=== PATIENT | female | born 1975 | race Asian ===

== ENCOUNTER 2016-03-16 10:29 | Emergency (ER) | payer BC, MEDICARE ==
[~2016-03-16 10:29] MED LIST: ASPI325T28 PO; ATOR1TAB19 PO; BACT800T5 PO; BACTROBAN; CALC1CAP31 PO; CIPR500T89 PO; CLIN300C2 PO; COZA100T2 PO; COZA50TA PO; ESCI10TA2 PO; FERR325T3 PO; HUMULIN 70/30 SC; HYDR12.55 PO; INSUH10VL SC; INSUNSD SC; KEFL750C5 PO; LISI2.5T OR; LOSA25TA8 PO; METO10TA2 OR; NORV5TAB PO; OMEP20TA7 OR; SODI200S PO; TRI-TAB PO; TYLE325T5 PO; TYLE650T30 PO; VITA-130 PO
[2016-03-16] MEDS ORDERED: CLINDAMYCIN 600 MG/50 ML PREMIX BAG As Ordered ONE (11:47)
[2016-03-16 12:08] LABS: BASO % 1.1 % (0.0-1.0); EOS # 0.5 K/mm3 (0.0-0.50); EOS % 11.4 % (0.0-3.0); LARGE UNSTAINED CELL # 0.1 K/mm3 (0.0-0.4); LARGE UNSTAINED CELL % 2.1 % (0.0-4.0); LYMPH % 22.7 % (24.0-44.0); MEAN CORPUSCULAR HEMOGLOBIN 35.6 pg (27.0-33.0); MEAN CORPUSCULAR HGB CONC 33.4 g/dl (32.0-36.5); MEAN CORPUSCULAR VOLUME 106.3 fl (80.0-96.0); MONO # 0.3 K/mm3 (0.0-0.8); MONO % 6.1 % (0.0-5.0); NEUTROPHILS # 2.4 K/mm3 (1.8-7.7); NEUTROPHILS % 56.7 % (36.0-66.0); PLATELET COUNT, AUTOMATED 126 k/mm3 (150-450); RED CELL DISTRIBUTION WIDTH 14.8 % (11.5-14.5); WHITE BLOOD COUNT 4.2 K/mm3 (4.0-10.0)
[2016-03-16 12:24] LABS: CALCIUM LEVEL 8.6 MG/DL (8.5-10.1); CREATININE FOR GFR 6.67 MG/DL (0.55-1.02); GLOMERULAR FILTRATION RATE 7.4 (>60); POTASSIUM SERUM 4.4 MEQ/L (3.5-5.1)
[2016-03-16 12:47] LABS: ERYTHROCYTE SEDIMENTATION RATE 32 mm/hr (0-20)
--- NOTE | 2016-03-16 13:07 | EDDOCDS ---
Nurse's Notes [facility] Name: Italia Nye Age: 40 yrs Sex: Female : 1975 Arrival Date: 03/16/2016 Time: 10:29 Bed I4 / M4 Private MD: Tyron Smith MD Diagnosis: Cellulitis of face-left Presentation: 03/16 10:49 Presenting complaint: Patient states: Dental pain and swelling to left side of face. dwg Symptoms since yesterday AM. Adult Sepsis Screening: The patient does not have new or worsening altered mentation. Patient's respiratory rate is less than 22. Systolic blood pressure is greater than 100. Patient has a qSOFA score of 0- Negative Sepsis Screen. Suicide/Homicide risk assessment- the patient denies having any suicidal and/or homicidal ideations and does not present with any other emotional, behavioral or mental health complaints. 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 Transition of care: patient was not received from another setting of care. 10:49 Acuity: DEE Level 4 dwg 10:49 Method Of Arrival: Walkin/Carried/Asstd dwg Triage Assessment: 10:58 General: Appears in no apparent distress, uncomfortable. Pain: Pain currently is 6 out dwg of 10 on a pain scale. HIV screening NA for this visit Offered previously. 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 losartan 100 mg oral tab 1 tab once daily (Last dose: 03/16/2016) 2. amlodipine 10 mg Oral tab 1 tab once daily (Last dose: 03/16/2016) 3. Lipitor 10 mg Oral tab 1 tab once daily (Last dose: 03/16/2016) 4. Renvela 800 mg oral tab 1 tab 3 times per day (Last dose: 03/16/2016) 5. Novolin N 15 units in AM, 10 units at PM Sub-Q (Last dose: 03/16/2016) 6. Novolog Sliding scale AC and HS Sub-Q (Last dose: 03/15/2016) 7. calcitriol oral Q Mon, Wed, Fri oral 8. Lexapro 10 mg Oral tab 1 tab once daily (Last dose: 03/16/2016) 9. aspirin 325 mg Oral TbEC 1 tab once daily (Last dose: 03/16/2016) 10. Vitamin D Oral 50,000 unit weekly (Last dose: 03/11/2016) 11. Renavite one tab daily - PMHx: Diabetes - IDDM: controlled; Hypertension; Hypercholesterolemia; Renal failure with hemodialysis; - PSHx: Tubal ligation; Left pinky toe amputation; Left upper arm fistula; - Social history: Smoking status: Patient states was never smoker of tobacco. No barriers to communication noted, The patient speaks fluent Cypriot. - Family history: Not pertinent. - : The pt / caregiver states he / she is not on anticoagulants. Home medication list is obtained from the patient. - Exposure Risk Screening:: None identified. Screenin:32 Infection Control. cmb 12:52 Screening information is obtained from the patient. Primary language is Cypriot. Fall jam1 risk: No risks identified. Assistance ADL's: requires no assistance with activities of daily living. Abuse/DV Screen: The patient / caregiver reports he/she is: not in a situation that causes fear, pain or injury. Nutritional screening: No deficits noted. Exposure Risk Screening: None identified. Advance Directives: Currently, there is no health care proxy. There is no active DNR order. There is no living will. There is no Power of Can Doffer. Advance directive information has not previously been placed in an [facility] medical record. Further advance directive information is declined. home support is adequate. Assessment: 11:53 Adult Sepsis Screening: The patient does not have new or worsening altered mentation. dsf Patient's respiratory rate is less than 22. Systolic blood pressure is greater than 100. Patient has a qSOFA score of 0- Negative Sepsis Screen. General: Appears in no apparent distress, Behavior is appropriate for age, cooperative. Pain: Location: left jaw Pain currently is 8 out of 10 on a pain scale. Quality of pain is described as aching, dull. Neurological: Level of Consciousness is awake, alert. Cardiovascular: Capillary refill < 3 seconds. Respiratory: Airway is patent Respiratory effort is even, unlabored, Respiratory pattern is regular, symmetrical. Derm: Skin is dry, Skin is pale, Skin temperature is warm small dark purple bruise noted to left jaw. 12:19 General: Appears in no apparent distress, Behavior is appropriate for age, cooperative. dsf Neurological: Level of Consciousness is awake, alert. Cardiovascular: Capillary refill < 3 seconds. Respiratory: Airway is patent Respiratory effort is even, unlabored, Respiratory pattern is regular, symmetrical. Derm: Skin is dry, Skin is pale, Skin temperature is warm. 13:01 General: Appears in no apparent distress, comfortable, Behavior is appropriate for age, dsf cooperative. Neurological: Level of Consciousness is awake, alert. Cardiovascular: Capillary refill < 3 seconds. Respiratory: Airway is patent Respiratory effort is even, unlabored, Respiratory pattern is regular, symmetrical. Derm: Skin is dry, Skin is pale, Skin temperature is warm. Vital Signs: 10:31 BP 164 / 82; Pulse 74; Resp 16; Temp 98.2(O); Pulse Ox 97% ; Weight 74.84 kg; Height 5 cmb ft. 4 in. (162.56 cm); Pain 6/10; 12:51 BP 169 / 80; Pulse 76; Resp 18; Temp 97.6; Pulse Ox 97% ; Pain 0/10; jam1 10:31 Body Mass Index 28.32 (74.84 kg, 162.56 cm) cmb Vitals: 10:31 Log In Time: March 16, 2016 at 10:29. cmb ED Course: 10:30 Patient visited by Sonal Brown. cmb 10:30 Patient moved to Waiting cmb 10:31 Tyron Smith is Private Physician. cmb 10:32 Patient moved to Pre RCE cmb 10:51 Triage Initiated dwg 10:59 Patient moved to Triage 3 dwg 11:17 [facility] dt4 11:17 Darryl Reed MD is Attending Physician. dt4 11:17 Patient visited by Margarita Marin PA-C. dt4 11:39 Patient moved to I4 / M4 mdr 11:53 CRP Sent. dsf 11:53 Sed Rate Sent. dsf 11:53 Basic Metabolic Profile Sent. dsf 11:53 CBC with Diff Sent. dsf 11:54 Inserted saline lock: 20 gauge in right hand The patient tolerated the procedure well. dsf 12:09 Patient name changed from Alesa\S\Tatyana\S\Rich\S\ to Alesa\S\C\S\Rich. EDMS 12:16 [facility] [place] Agreement was scanned into [employer] and attached to record. lg 12:20 Patient visited by Karen Bolaños RN. dsf 12:[address] dsf 12:35 Patient moved to I4 / M4 dsf 13:01 Discontinued lock intact, bleeding controlled, pressure dressing applied, No dsf redness/swelling at site. No procedures done that require assistance. 13:02 The patient / caregiver is instructed regarding the plan of care and ED course. Patient dsf has correct armband on for positive identification. Administered Medications: 11:55 Drug: Clindamycin 600 mg [clindamycin 600 mg/50 mL in 5 % dextrose intravenous jf3 piggyback] Route: IVPB; Infused Over: 30 mins; Site: right hand; 12:19 Follow up: IV Status: Completed infusion; IV Intake: 50ml dsf Intake: 12:19 IV: 50.00ml; Total: 50.00ml. dsf Order Results: Lab Order: CBC with Diff; SPEC'M 03/16/16 11:52 Test: WHITE BLOOD COUNT; Value: 4.2; Range: 4.0-10.0; Units: K/mm3; Status: F Test: RED BLOOD COUNT; Value: 2.76; Range: 4.00-5.40; Abnormal: Below low normal; Units: M/mm3; Status: F Test: HEMOGLOBIN; Value: 9.8; Range: 12.0-16.0; Abnormal: Below low normal; Units: g/dl; Status: F Test: HEMATOCRIT; Value: 29.4; Range: 36.0-47.0; Abnormal: Below low normal; Units: %; Status: F Test: MEAN CORPUSCULAR VOLUME; Value: 106.3; Range: 80.0-96.0; Abnormal: Above high normal; Units: fl; Status: F Test: MEAN CORPUSCULAR HEMOGLOBIN; Value: 35.6; Range: 27.0-33.0; Abnormal: Above high normal; Units: pg; Status: F Test: MEAN CORPUSCULAR HGB CONC; Value: 33.4; Range: 32.0-36.5; Units: g/dl; Status: F Test: RED CELL DISTRIBUTION WIDTH; Value: 14.8; Range: 11.5-14.5; Abnormal: Above high normal; Units: %; Status: F Test: PLATELET COUNT, AUTOMATED; Value: 126; Range: 150-450; Abnormal: Below low normal; Units: k/mm3; Status: F Test: NEUTROPHILS %; Value: 56.7; Range: 36.0-66.0; Units: %; Status: F Test: LYMPH %; Value: 22.7; Range: 24.0-44.0; Abnormal: Below low normal; Units: %; Status: F Test: MONO %; Value: 6.1; Range: 0.0-5.0; Abnormal: Above high normal; Units: %; Status: F Test: EOS %; Value: 11.4; Range: 0.0-3.0; Abnormal: Above high normal; Units: %; Status: F Test: BASO %; Value: 1.1; Range: 0.0-1.0; Abnormal: Above high normal; Units: %; Status: F Test: LARGE UNSTAINED CELL %; Value: 2.1; Range: 0.0-4.0; Units: %; Status: F Test: NEUTROPHILS #; Value: 2.4; Range: 1.8-7.7; Units: K/mm3; Status: F Test: LYMPH #; Value: 1.0; Range: 1.5-4.5; Abnormal: Below low normal; Units: K/mm3; Status: F Test: MONO #; Value: 0.3; Range: 0.0-0.8; Units: K/mm3; Status: F Test: EOS #; Value: 0.5; Range: 0.0-0.50; Units: K/mm3; Status: F Test: BASO #; Value: 0.0; Range: 0.0-0.2; Units: K/mm3; Status: F Test: LARGE UNSTAINED CELL #; Value: 0.1; Range: 0.0-0.4; Units: K/mm3; Status: F Lab Order: Basic Metabolic Profile; SPEC'M 03/16/16 11:52 Test: GLUCOSE, FASTING; Value: 267; Range: 70-105; Abnormal: Above high normal; Units: MG/DL; Status: F Test: BLOOD UREA NITROGEN; Value: 58; Range: 7-18; Abnormal: Above high normal; Units: MG/DL; Status: F Test: CREATININE FOR GFR; Value: 6.67; Range: 0.55-1.02; Abnormal: Above high normal; Units: MG/DL; Status: F Test: GLOMERULAR FILTRATION RATE; Value: 7.4; Range: >60; Abnormal: Below low normal; Status: F Test: SODIUM LEVEL; Value: 135; Range: 136-145; Abnormal: Below low normal; Units: MEQ/L; Status: F Test: POTASSIUM SERUM; Value: 4.4; Range: 3.5-5.1; Units: MEQ/L; Status: F Test: CHLORIDE LEVEL; Value: 95; Range: 98-107; Abnormal: Below low normal; Units: MEQ/L; Status: F Test: CARBON DIOXIDE LEVEL; Value: 27; Range: 21-32; Units: MEQ/L; Status: F Test: ANION GAP; Value: 13; Range: 8-16; Units: MEQ/L; Status: F Test: CALCIUM LEVEL; Value: 8.6; Range: 8.5-10.1; Units: MG/DL; Status: F Test Note: ; Units are mL/min/1.73 m2 Chronic Kidney Disease Staging per NKF: Stage I & II GFR >=60 Normal to Mildly Decreased Stage III GFR 30-59 Moderately Decreased Stage IV GFR 15-29 Severely Decreased Stage V GFR <15 Very Little GFR Left ESRD GFR <15 on LOAD OUT WORKER Lab Order: Sed Rate; SPEC'M 03/16/16 11:52 Test: ERYTHROCYTE SEDIMENTATION RATE; Value: 32; Range: 0-20; Abnormal: Above high normal; Units: mm/hr; Status: F Lab Order: CRP; SPEC'M 03/16/16 11:52 Test: C REACTIVE PROTEIN QUANTITATIV; Value: 0.41; Range: 0.00-0.30; Abnormal: Above high normal; Units: MG/DL; Status: F Outcome: 13:02 CT Study completed. Property sent home with patient. dsf 13:02 Discharge ordered by Provider. dt4 13:06 Discharge Assessment: Patient awake, alert and oriented x 3. No cognitive and/or dsf functional deficits noted. Patient verbalized understanding of disposition instructions. patient administered narcotics - no. The following High Risk Discharge criteria are identified: None. Discharged to home ambulatory, with significant other. Condition: stable. Discharge instructions given to patient, Instructed on discharge instructions, follow up and referral plans. medication usage, Demonstrated understanding of instructions, medications, Pt was receptive of discharge instructions/ teaching. Prescriptions given X 1. 13:06 Patient left the ED. dsf Signatures: Dispatcher [employer] EDMS Huber Geller, RN RN Mell Chavez, TECHNICIAN PREVENTATIVE MEDICINE TECHNICIAN PREVENTATIVE MEDICINE jam1 Natacha Benitez, Reg Reg lg Karen Bolaños,RN RN dsf Sonal Brown Diane, PA-C PA-C dt4 Diego Gibbs, TECHNICIAN PREVENTATIVE MEDICINE TECHNICIAN PREVENTATIVE MEDICINE mdr Parish Friedman,RN RN jf3 MTDD
--- NOTE | 2016-03-16 13:07 | EDDOCDS ---
Physician Documentation [facility] Name: Italia Nye Age: 40 yrs Sex: Female : 1975 Arrival Date: 03/16/2016 Time: 10:29 Bed I4 / M4 Private MD: Tyron Smith MD Disposition: 03/16/16 13:02 Discharged to Home/Self Care. Impression: Cellulitis of face - left. - Condition is Stable. - Discharge Instructions: Cellulitis. - Prescriptions for Clindamycin HCl 300 mg Oral Capsule - take 1 capsule by ORAL route every 6 hours; 40 capsule. - Medication Reconciliation, Local Pharmacy Hours form. - Follow up: Emergency Department; When: As needed; Reason: Worsening of conditions. Follow up: Private Physician; When: 2 - 3 days; Reason: Wound/Symptom Recheck, Recheck today's complaints, Continuance of care. - Problem is new. - Symptoms are unchanged. Historical: - Allergies: no known allergies; - Home Meds: 1. losartan 100 mg oral tab 1 tab once daily (Last dose: 03/16/2016) 2. amlodipine 10 mg Oral tab 1 tab once daily (Last dose: 03/16/2016) 3. Lipitor 10 mg Oral tab 1 tab once daily (Last dose: 03/16/2016) 4. Renvela 800 mg oral tab 1 tab 3 times per day (Last dose: 03/16/2016) 5. Novolin N 15 units in AM, 10 units at PM Sub-Q (Last dose: 03/16/2016) 6. Novolog Sliding scale AC and HS Sub-Q (Last dose: 03/15/2016) 7. calcitriol oral Q Mon, Wed, Fri oral 8. Lexapro 10 mg Oral tab 1 tab once daily (Last dose: 03/16/2016) 9. aspirin 325 mg Oral TbEC 1 tab once daily (Last dose: 03/16/2016) 10. Vitamin D Oral 50,000 unit weekly (Last dose: 03/11/2016) 11. Renavite one tab daily - PMHx: Diabetes - IDDM: controlled; Hypertension; Hypercholesterolemia; Renal failure with hemodialysis; - PSHx: Tubal ligation; Left pinky toe amputation; Left upper arm fistula; - Social history: Smoking status: Patient states was never smoker of tobacco. No barriers to communication noted, The patient speaks fluent Divehi. - Family history: Not pertinent. - : The pt / caregiver states he / she is not on anticoagulants. Home medication list is obtained from the patient. - Exposure Risk Screening:: None identified. 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 4 in. (162.56 cm); Pain 6/10; 12:51 BP 169 / 80; Pulse 76; Resp 18; Temp 97.6; Pulse Ox 97% ; Pain 0/10; jam1 10:31 Body Mass Index 28.32 (74.84 kg, 162.56 cm) cmb MDM: 11:36 IV Saline Lock ordered. dt4 11:36 Clindamycin 600 mg IVPB once over 30 mins; dilute in 50mL of NS or D5W ordered. dt4 11:37 CBC with Diff Ordered. EDMS 11:37 Basic Metabolic Profile Ordered. EDMS 11:37 Sed Rate Ordered. EDMS 11:38 CRP Ordered. EDMS 11:47 Financial registration complete. lg 12:16 [facility] [place] Payment Agreement was scanned into [employer] and attached to record. lg 12:28 CT Maxilofacial W/out Contrast Ordered. EDMS Administered Medications: 11:55 Drug: Clindamycin 600 mg [clindamycin 600 mg/50 mL in 5 % dextrose intravenous jf3 piggyback] Route: IVPB; Infused Over: 30 mins; Site: right hand; 12:19 Follow up: IV Status: Completed infusion; IV Intake: 50ml dsf Signatures: Dispatcher [employer] EDMS Huber Geller RN RN dwg Natacha Benitez, Rashawn Reg lg Karen BolañosRN RN dsf Margarita Marin PA-C PA-C dt4 Parish Friedman RN jf3 The chart was reviewed and I authenticate all verbal orders and agree with the evaluation and treatment provided.Corrections: (The following items were deleted from the chart) 12:31 11:38 CT Maxillofacial with contrast+CT ordered. EDMS EDMS Attachments: 12:16 [facility] [place] Payment Agreement lg MTDD
--- NOTE | 2016-03-16 13:11 | REP ---
MAXILLOFACIAL CT WITHOUT CONTRAST: HISTORY: Left facial swelling. The sinuses are clear. The osteomeatal units are patent. The middle and inferior nasal turbinates are partially paradoxical. There is minimal deviation of the nasal septum to the left. A spur is present arising from the left side of the nasal septum. The spur abuts the left inferior nasal turbinate. The cribriform plate, medial bingham of the orbits, and optic canals are intact. The carotid canals form a segment of the posterolateral bingham of the sphenoid sinus. Increased density is present in the subcutaneous tissue overlying the left maxilla and body of the left mandible. This represents cellulitis. There is minimal thickening of the left platysma muscle consistent with edema. Calcifications are present in the tonsils. This is secondary to previous inflammatory disease. The naso- and hypopharynx, larynx, and subglottic trachea are normal in appearance. The salivary and thyroid glands are normal. Small lymph nodes less than 1 cm in size are present in the internal jugular chains, posterior triangles, and submandibular areas. A 9 mm lymph node is present along the buccal surface of the left maxilla. IMPRESSION: There is increased density in the soft tissue overlying the left maxilla and body of the left mandible consistent with cellulitis. Signed by Naldo Vasquez MD 03/16/2016 01:23 P
--- NOTE | 2016-03-18 14:07 | EDDOCDS ---
Physician Documentation [facility] Name: Italia Nye Age: 40 yrs Sex: Female : 1975 Arrival Date: 03/16/2016 Time: 10:29 Bed I4 / M4 Private MD: Tyron Smith MD Disposition: 03/16/16 13:02 Discharged to Home/Self Care. Impression: Cellulitis of face - left. - Condition is Stable. - Discharge Instructions: Cellulitis. - Prescriptions for Clindamycin HCl 300 mg Oral Capsule - take 1 capsule by ORAL route every 6 hours; 40 capsule. - Medication Reconciliation, Local Pharmacy Hours form. - Follow up: Emergency Department; When: As needed; Reason: Worsening of conditions. Follow up: Private Physician; When: 2 - 3 days; Reason: Wound/Symptom Recheck, Recheck today's complaints, Continuance of care. - Problem is new. - Symptoms are unchanged. Historical: - Allergies: no known allergies; - Home Meds: 1. losartan 100 mg oral tab 1 tab once daily (Last dose: 03/16/2016) 2. amlodipine 10 mg Oral tab 1 tab once daily (Last dose: 03/16/2016) 3. Lipitor 10 mg Oral tab 1 tab once daily (Last dose: 03/16/2016) 4. Renvela 800 mg oral tab 1 tab 3 times per day (Last dose: 03/16/2016) 5. Novolin N 15 units in AM, 10 units at PM Sub-Q (Last dose: 03/16/2016) 6. Novolog Sliding scale AC and HS Sub-Q (Last dose: 03/15/2016) 7. calcitriol oral Q Mon, Wed, Fri oral 8. Lexapro 10 mg Oral tab 1 tab once daily (Last dose: 03/16/2016) 9. aspirin 325 mg Oral TbEC 1 tab once daily (Last dose: 03/16/2016) 10. Vitamin D Oral 50,000 unit weekly (Last dose: 03/11/2016) 11. Renavite one tab daily - PMHx: Diabetes - IDDM: controlled; Hypertension; Hypercholesterolemia; Renal failure with hemodialysis; - PSHx: Tubal ligation; Left pinky toe amputation; Left upper arm fistula; - Social history: Smoking status: Patient states was never smoker of tobacco. No barriers to communication noted, The patient speaks fluent Kazakh. - Family history: Not pertinent. - : The pt / caregiver states he / she is not on anticoagulants. Home medication list is obtained from the patient. - Exposure Risk Screening:: None identified. 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 4 in. (162.56 cm); Pain 6/10; 12:51 BP 169 / 80; Pulse 76; Resp 18; Temp 97.6; Pulse Ox 97% ; Pain 0/10; jam1 10:31 Body Mass Index 28.32 (74.84 kg, 162.56 cm) cmb MDM: 11:36 IV Saline Lock ordered. dt4 11:36 Clindamycin 600 mg IVPB once over 30 mins; dilute in 50mL of NS or D5W ordered. dt4 11:37 CBC with Diff Ordered. EDMS 11:37 Basic Metabolic Profile Ordered. EDMS 11:37 Sed Rate Ordered. EDMS 11:38 CRP Ordered. EDMS 11:47 Financial registration complete. lg 12:16 [facility] Payment Agreement was scanned into [employer] and attached to record. lg 12:28 CT Maxilofacial W/out Contrast Ordered. EDMS 03/17 11:34 T-Sheet-- Draft Copy was scanned into [employer] and attached to record. gb 11:34 Radiology Report was scanned into [employer] and attached to record. gb Administered Medications: 03/16 11:55 Drug: Clindamycin 600 mg [clindamycin 600 mg/50 mL in 5 % dextrose intravenous jf3 piggyback] Route: IVPB; Infused Over: 30 mins; Site: right hand; 12:19 Follow up: IV Status: Completed infusion; IV Intake: 50ml dsf Signatures: Dispatcher [employer] EDMS Huber Geller, RN RN dwg Rosa Castro, Reg Reg gb Natacha Benitez, Reg Reg lg Karen Bolaños RN RN dsf Margarita Marin PA-C PAJessicaC dt4 Parish Friedman RN jf3 The chart was reviewed and I authenticate all verbal orders and agree with the evaluation and treatment provided.Corrections: (The following items were deleted from the chart) 12:31 11:38 CT Maxillofacial with contrast+CT ordered. EDMS EDMS Attachments: 12:16 [facility] Payment Agreement lg 03/17 11:34 T-Sheet-- Draft Copy gb Chart Complete MTDD
--- NOTE | 2016-03-18 14:07 | EDDOCDS ---
Physician Documentation [facility] Name: Italia Nye Age: 40 yrs Sex: Female : 1975 Arrival Date: 03/16/2016 Time: 10:29 Bed I4 / M4 Private MD: Tyron Smith MD Disposition: 03/16/16 13:02 Discharged to Home/Self Care. Impression: Cellulitis of face - left. - Condition is Stable. - Discharge Instructions: Cellulitis. - Prescriptions for Clindamycin HCl 300 mg Oral Capsule - take 1 capsule by ORAL route every 6 hours; 40 capsule. - Medication Reconciliation, Local Pharmacy Hours form. - Follow up: Emergency Department; When: As needed; Reason: Worsening of conditions. Follow up: Private Physician; When: 2 - 3 days; Reason: Wound/Symptom Recheck, Recheck today's complaints, Continuance of care. - Problem is new. - Symptoms are unchanged. Historical: - Allergies: no known allergies; - Home Meds: 1. losartan 100 mg oral tab 1 tab once daily (Last dose: 03/16/2016) 2. amlodipine 10 mg Oral tab 1 tab once daily (Last dose: 03/16/2016) 3. Lipitor 10 mg Oral tab 1 tab once daily (Last dose: 03/16/2016) 4. Renvela 800 mg oral tab 1 tab 3 times per day (Last dose: 03/16/2016) 5. Novolin N 15 units in AM, 10 units at PM Sub-Q (Last dose: 03/16/2016) 6. Novolog Sliding scale AC and HS Sub-Q (Last dose: 03/15/2016) 7. calcitriol oral Q Mon, Wed, Fri oral 8. Lexapro 10 mg Oral tab 1 tab once daily (Last dose: 03/16/2016) 9. aspirin 325 mg Oral TbEC 1 tab once daily (Last dose: 03/16/2016) 10. Vitamin D Oral 50,000 unit weekly (Last dose: 03/11/2016) 11. Renavite one tab daily - PMHx: Diabetes - IDDM: controlled; Hypertension; Hypercholesterolemia; Renal failure with hemodialysis; - PSHx: Tubal ligation; Left pinky toe amputation; Left upper arm fistula; - Social history: Smoking status: Patient states was never smoker of tobacco. No barriers to communication noted, The patient speaks fluent Yakut. - Family history: Not pertinent. - : The pt / caregiver states he / she is not on anticoagulants. Home medication list is obtained from the patient. - Exposure Risk Screening:: None identified. 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 4 in. (162.56 cm); Pain 6/10; 12:51 BP 169 / 80; Pulse 76; Resp 18; Temp 97.6; Pulse Ox 97% ; Pain 0/10; jam1 10:31 Body Mass Index 28.32 (74.84 kg, 162.56 cm) cmb MDM: 11:36 IV Saline Lock ordered. dt4 11:36 Clindamycin 600 mg IVPB once over 30 mins; dilute in 50mL of NS or D5W ordered. dt4 11:37 CBC with Diff Ordered. EDMS 11:37 Basic Metabolic Profile Ordered. EDMS 11:37 Sed Rate Ordered. EDMS 11:38 CRP Ordered. EDMS 11:47 Financial registration complete. lg 12:16 [facility] [place] Payment Agreement was scanned into Ongo and attached to record. lg 12:28 CT Maxilofacial W/out Contrast Ordered. EDMS 03/17 11:34 T-Sheet-- Draft Copy was scanned into Ongo and attached to record. gb 11:34 Radiology Report was scanned into Ongo and attached to record. gb Administered Medications: 03/16 11:55 Drug: Clindamycin 600 mg [clindamycin 600 mg/50 mL in 5 % dextrose intravenous jf3 piggyback] Route: IVPB; Infused Over: 30 mins; Site: right hand; 12:19 Follow up: IV Status: Completed infusion; IV Intake: 50ml dsf Signatures: Dispatcher Med[employer] EDMS Huber Geller, RN RN dwg Rosa Castro, Reg Reg gb Natacha Benitez, Reg Reg lg Karen Bolaños RN RN dsf Margarita Marin PA-C PAJessicaC dt4 Parish Friedman RN jf3 The chart was reviewed and I authenticate all verbal orders and agree with the evaluation and treatment provided.Corrections: (The following items were deleted from the chart) 12:31 11:38 CT Maxillofacial with contrast+CT ordered. EDMS EDMS Attachments: 12:16 [facility] Payment Agreement lg 03/17 11:34 T-Sheet-- Draft Copy gb Chart Complete MTDD
--- NOTE | 2016-03-18 14:07 | EDDOCDS ---
Nurse's Notes [facility] Name: Italia Nye Age: 40 yrs Sex: Female : 1975 Arrival Date: 03/16/2016 Time: 10:29 Bed I4 / M4 Private MD: Tyron Smith MD Diagnosis: Cellulitis of face-left Presentation: 03/16 10:49 Presenting complaint: Patient states: Dental pain and swelling to left side of face. dwg Symptoms since yesterday AM. Adult Sepsis Screening: The patient does not have new or worsening altered mentation. Patient's respiratory rate is less than 22. Systolic blood pressure is greater than 100. Patient has a qSOFA score of 0- Negative Sepsis Screen. Suicide/Homicide risk assessment- the patient denies having any suicidal and/or homicidal ideations and does not present with any other emotional, behavioral or mental health complaints. 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 Transition of care: patient was not received from another setting of care. 10:49 Acuity: DEE Level 4 dwg 10:49 Method Of Arrival: Walkin/Carried/Asstd dwg Triage Assessment: 10:58 General: Appears in no apparent distress, uncomfortable. Pain: Pain currently is 6 out dwg of 10 on a pain scale. HIV screening NA for this visit Offered previously. 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 losartan 100 mg oral tab 1 tab once daily (Last dose: 03/16/2016) 2. amlodipine 10 mg Oral tab 1 tab once daily (Last dose: 03/16/2016) 3. Lipitor 10 mg Oral tab 1 tab once daily (Last dose: 03/16/2016) 4. Renvela 800 mg oral tab 1 tab 3 times per day (Last dose: 03/16/2016) 5. Novolin N 15 units in AM, 10 units at PM Sub-Q (Last dose: 03/16/2016) 6. Novolog Sliding scale AC and HS Sub-Q (Last dose: 03/15/2016) 7. calcitriol oral Q Mon, Wed, Fri oral 8. Lexapro 10 mg Oral tab 1 tab once daily (Last dose: 03/16/2016) 9. aspirin 325 mg Oral TbEC 1 tab once daily (Last dose: 03/16/2016) 10. Vitamin D Oral 50,000 unit weekly (Last dose: 03/11/2016) 11. Renavite one tab daily - PMHx: Diabetes - IDDM: controlled; Hypertension; Hypercholesterolemia; Renal failure with hemodialysis; - PSHx: Tubal ligation; Left pinky toe amputation; Left upper arm fistula; - Social history: Smoking status: Patient states was never smoker of tobacco. No barriers to communication noted, The patient speaks fluent [place] Irish. - Family history: Not pertinent. - : The pt / caregiver states he / she is not on anticoagulants. Home medication list is obtained from the patient. - Exposure Risk Screening:: None identified. Screenin:32 Infection Control. cmb 12:52 Screening information is obtained from the patient. Primary language is Northern Irish. Fall jam1 risk: No risks identified. Assistance ADL's: requires no assistance with activities of daily living. Abuse/DV Screen: The patient / caregiver reports he/she is: not in a situation that causes fear, pain or injury. Nutritional screening: No deficits noted. Exposure Risk Screening: None identified. Advance Directives: Currently, there is no health care proxy. There is no active DNR order. There is no living will. There is no Power of Clothes Separator. Advance directive information has not previously been placed in an [facility] medical record. Further advance directive information is declined. home support is adequate. Assessment: 11:53 Adult Sepsis Screening: The patient does not have new or worsening altered mentation. dsf Patient's respiratory rate is less than 22. Systolic blood pressure is greater than 100. Patient has a qSOFA score of 0- Negative Sepsis Screen. General: Appears in no apparent distress, Behavior is appropriate for age, cooperative. Pain: Location: left jaw Pain currently is 8 out of 10 on a pain scale. Quality of pain is described as aching, dull. Neurological: Level of Consciousness is awake, alert. Cardiovascular: Capillary refill < 3 seconds. Respiratory: Airway is patent Respiratory effort is even, unlabored, Respiratory pattern is regular, symmetrical. Derm: Skin is dry, Skin is pale, Skin temperature is warm small dark purple bruise noted to left jaw. 12:19 General: Appears in no apparent distress, Behavior is appropriate for age, cooperative. dsf Neurological: Level of Consciousness is awake, alert. Cardiovascular: Capillary refill < 3 seconds. Respiratory: Airway is patent Respiratory effort is even, unlabored, Respiratory pattern is regular, symmetrical. Derm: Skin is dry, Skin is pale, Skin temperature is warm. 13:01 General: Appears in no apparent distress, comfortable, Behavior is appropriate for age, dsf cooperative. Neurological: Level of Consciousness is awake, alert. Cardiovascular: Capillary refill < 3 seconds. Respiratory: Airway is patent Respiratory effort is even, unlabored, Respiratory pattern is regular, symmetrical. Derm: Skin is dry, Skin is pale, Skin temperature is warm. Vital Signs: 10:31 BP 164 / 82; Pulse 74; Resp 16; Temp 98.2(O); Pulse Ox 97% ; Weight 74.84 kg; Height 5 cmb ft. 4 in. (162.56 cm); Pain 6/10; 12:51 BP 169 / 80; Pulse 76; Resp 18; Temp 97.6; Pulse Ox 97% ; Pain 0/10; jam1 10:31 Body Mass Index 28.32 (74.84 kg, 162.56 cm) cmb Vitals: 10:31 Log In Time: March 16, 2016 at 10:29. cmb ED Course: 10:30 Patient visited by Sonal Brown. cmb 10:30 Patient moved to Waiting cmb 10:31 Tyron Smith is Private Physician. cmb 10:32 Patient moved to Pre RCE cmb 10:51 Triage Initiated dwg 10:59 Patient moved to Triage 3 dwg 11:17 Margarita Marin PA-C is [facility]. dt4 11:17 Darryl Reed MD is Attending Physician. dt4 11:17 Patient visited by Margarita Marin PA-C. dt4 11:39 Patient moved to I4 / M4 mdr 11:53 CRP Sent. dsf 11:53 Sed Rate Sent. dsf 11:53 Basic Metabolic Profile Sent. dsf 11:53 CBC with Diff Sent. dsf 11:54 Inserted saline lock: 20 gauge in right hand The patient tolerated the procedure well. dsf 12:09 Patient name changed from Alesa\S\Tatyana\S\Rich\S\ to Alesa\S\C\S\Rich. EDMS 12:16 [facility] [place] Payment Agreement was scanned into [employer] and attached to record. lg 12:20 Patient visited by Karen Bolaños RN. dsf 12:[address] dsf 12:35 Patient moved to I4 / M4 dsf 13:01 Discontinued lock intact, bleeding controlled, pressure dressing applied, No dsf redness/swelling at site. No procedures done that require assistance. 13:02 The patient / caregiver is instructed regarding the plan of care and ED course. Patient dsf has correct armband on for positive identification. 13:17 CT Maxilofacial W/out Contrast Returned. EDMS 03/17 11:34 T-Sheet-- Draft Copy was scanned into Expert[employer] and attached to record. gb 11:34 Radiology Report was scanned into [employer] and attached to record. gb Administered Medications: 03/16 11:55 Drug: Clindamycin 600 mg [clindamycin 600 mg/50 mL in 5 % dextrose intravenous jf3 piggyback] Route: IVPB; Infused Over: 30 mins; Site: right hand; 12:19 Follow up: IV Status: Completed infusion; IV Intake: 50ml dsf Intake: 12:19 IV: 50.00ml; Total: 50.00ml. dsf Order Results: Lab Order: CBC with Diff; SPEC'M 03/16/16 11:52 Test: WHITE BLOOD COUNT; Value: 4.2; Range: 4.0-10.0; Units: K/mm3; Status: F Test: RED BLOOD COUNT; Value: 2.76; Range: 4.00-5.40; Abnormal: Below low normal; Units: M/mm3; Status: F Test: HEMOGLOBIN; Value: 9.8; Range: 12.0-16.0; Abnormal: Below low normal; Units: g/dl; Status: F Test: HEMATOCRIT; Value: 29.4; Range: 36.0-47.0; Abnormal: Below low normal; Units: %; Status: F Test: MEAN CORPUSCULAR VOLUME; Value: 106.3; Range: 80.0-96.0; Abnormal: Above high normal; Units: fl; Status: F Test: MEAN CORPUSCULAR HEMOGLOBIN; Value: 35.6; Range: 27.0-33.0; Abnormal: Above high normal; Units: pg; Status: F Test: MEAN CORPUSCULAR HGB CONC; Value: 33.4; Range: 32.0-36.5; Units: g/dl; Status: F Test: RED CELL DISTRIBUTION WIDTH; Value: 14.8; Range: 11.5-14.5; Abnormal: Above high normal; Units: %; Status: F Test: PLATELET COUNT, AUTOMATED; Value: 126; Range: 150-450; Abnormal: Below low normal; Units: k/mm3; Status: F Test: NEUTROPHILS %; Value: 56.7; Range: 36.0-66.0; Units: %; Status: F Test: LYMPH %; Value: 22.7; Range: 24.0-44.0; Abnormal: Below low normal; Units: %; Status: F Test: MONO %; Value: 6.1; Range: 0.0-5.0; Abnormal: Above high normal; Units: %; Status: F Test: EOS %; Value: 11.4; Range: 0.0-3.0; Abnormal: Above high normal; Units: %; Status: F Test: BASO %; Value: 1.1; Range: 0.0-1.0; Abnormal: Above high normal; Units: %; Status: F Test: LARGE UNSTAINED CELL %; Value: 2.1; Range: 0.0-4.0; Units: %; Status: F Test: NEUTROPHILS #; Value: 2.4; Range: 1.8-7.7; Units: K/mm3; Status: F Test: LYMPH #; Value: 1.0; Range: 1.5-4.5; Abnormal: Below low normal; Units: K/mm3; Status: F Test: MONO #; Value: 0.3; Range: 0.0-0.8; Units: K/mm3; Status: F Test: EOS #; Value: 0.5; Range: 0.0-0.50; Units: K/mm3; Status: F Test: BASO #; Value: 0.0; Range: 0.0-0.2; Units: K/mm3; Status: F Test: LARGE UNSTAINED CELL #; Value: 0.1; Range: 0.0-0.4; Units: K/mm3; Status: F Lab Order: Basic Metabolic Profile; SPEC'M 03/16/16 11:52 Test: GLUCOSE, FASTING; Value: 267; Range: 70-105; Abnormal: Above high normal; Units: MG/DL; Status: F Test: BLOOD UREA NITROGEN; Value: 58; Range: 7-18; Abnormal: Above high normal; Units: MG/DL; Status: F Test: CREATININE FOR GFR; Value: 6.67; Range: 0.55-1.02; Abnormal: Above high normal; Units: MG/DL; Status: F Test: GLOMERULAR FILTRATION RATE; Value: 7.4; Range: >60; Abnormal: Below low normal; Status: F Test: SODIUM LEVEL; Value: 135; Range: 136-145; Abnormal: Below low normal; Units: MEQ/L; Status: F Test: POTASSIUM SERUM; Value: 4.4; Range: 3.5-5.1; Units: MEQ/L; Status: F Test: CHLORIDE LEVEL; Value: 95; Range: 98-107; Abnormal: Below low normal; Units: MEQ/L; Status: F Test: CARBON DIOXIDE LEVEL; Value: 27; Range: 21-32; Units: MEQ/L; Status: F Test: ANION GAP; Value: 13; Range: 8-16; Units: MEQ/L; Status: F Test: CALCIUM LEVEL; Value: 8.6; Range: 8.5-10.1; Units: MG/DL; Status: F Test Note: ; Units are mL/min/1.73 m2 Chronic Kidney Disease Staging per NKF: Stage I & II GFR >=60 Normal to Mildly Decreased Stage III GFR 30-59 Moderately Decreased Stage IV GFR 15-29 Severely Decreased Stage V GFR <15 Very Little GFR Left ESRD GFR <15 on SMOKING PIPE REPAIRER Lab Order: Sed Rate; SPEC'M 03/16/16 11:52 Test: ERYTHROCYTE SEDIMENTATION RATE; Value: 32; Range: 0-20; Abnormal: Above high normal; Units: mm/hr; Status: F Lab Order: CRP; SPEC'M 03/16/16 11:52 Test: C REACTIVE PROTEIN QUANTITATIV; Value: 0.41; Range: 0.00-0.30; Abnormal: Above high normal; Units: MG/DL; Status: F Radiology Order: CT Maxilofacial W/out Contrast Test: CT Maxilofacial W/out Contrast REASON FOR EXAMINATION: LEFT SIDED-FACIAL SWELLING; MAXILLOFACIAL CT WITHOUT CONTRAST:; ; HISTORY: Left facial swelling.; ; The sinuses are clear. The osteomeatal units are patent. The middle and inferior; nasal turbinates are partially paradoxical. There is minimal deviation of the; nasal septum to the left. A spur is present arising from the left side of the; nasal septum. The spur abuts the left inferior nasal turbinate. The cribriform; plate, medial bingham of the orbits, and optic canals are intact. The carotid; canals form a segment of the posterolateral bingham of the sphenoid sinus.; Increased density is present in the subcutaneous tissue overlying the left; maxilla and body of the left mandible. This represents cellulitis. There is; minimal thickening of the left platysma muscle consistent with edema.; Calcifications are present in the tonsils. This is secondary to previous; inflammatory disease. The naso- and hypopharynx, larynx, and subglottic trachea; are normal in appearance. The salivary and thyroid glands are normal. Small; lymph nodes less than 1 cm in size are present in the internal jugular chains,; posterior triangles, and submandibular areas. A 9 mm lymph node is present along; the buccal surface of the left maxilla.; ; IMPRESSION:; ; There is increased density in the soft tissue overlying the left maxilla and body; of the left mandible consistent with cellulitis.; ; ; Signed by; Naldo Vasquez MD 03/16/2016 01:23 P; Outcome: 13:02 CT Study completed. Property sent home with patient. dsf 13:02 Discharge ordered by Provider. dt4 13:06 Discharge Assessment: Patient awake, alert and oriented x 3. No cognitive and/or dsf functional deficits noted. Patient verbalized understanding of disposition instructions. patient administered narcotics - no. The following High Risk Discharge criteria are identified: None. Discharged to home ambulatory, with significant other. Condition: stable. Discharge instructions given to patient, Instructed on discharge instructions, follow up and referral plans. medication usage, Demonstrated understanding of instructions, medications, Pt was receptive of discharge instructions/ teaching. Prescriptions given X 1. 13:06 Patient left the ED. dsf Signatures: Dispatcher MedHost EDMS Huber Geller RN RN dwg Murphy, Jane, GARMENT PRESSER GARMENT PRESSER jam1 Rosa Castro, Reg Reg gb Natacha Benitez, Reg Reg lg Karen Bolaños RN RN dsf Sonal Brown Margarita Marin, PAYumiko PA-C dt4 Diego Gibbs, TEODORO GARMENT PRESSER mdr Parish Friedman,RN RN jf3 Chart Complete MTDD
== END 2016-03-16 13:06 | disposition home or self-care (01) ==
LOC: M ED 10:29
DX: L03.211 Cellulitis of face (principal); E11.9 Type 2 diabetes mellitus without complications; I12.0 Hypertensive chronic kidney disease with stage 5 chronic kidney disease or end stage renal disease; E78.00 Pure hypercholesterolemia, unspecified; N18.6 End stage renal disease; Z99.2 Dependence on renal dialysis; Z79.899 Other long term (current) drug therapy; Z79.4 Long term (current) use of insulin; Z79.82 Long term (current) use of aspirin

== ENCOUNTER 2016-07-29 22:04 | Emergency (ER) | payer BC, MEDICARE ==
[~2016-07-29] VITALS: Ht 162.6 cm; Wt 77.1 kg
[2016-07-29 23:13] LABS: CONTROL LINE HCG INT CTR LINE PRESENT
[2016-07-29 23:18] LABS: ANION GAP 12 MEQ/L (8-16); BLOOD UREA NITROGEN 32 MG/DL (7-18); CALCIUM LEVEL 8.5 MG/DL (8.5-10.1); CARBON DIOXIDE LEVEL 28 MEQ/L (21-32); CHLORIDE LEVEL 96 MEQ/L (98-107); CREATININE FOR GFR 5.73 MG/DL (0.55-1.02); GLOMERULAR FILTRATION RATE 8.8 (>60); POTASSIUM SERUM 4.5 MEQ/L (3.5-5.1); SODIUM LEVEL 136 MEQ/L (136-145)
[2016-07-29 23:21] LABS: ALBUMIN 3.7 GM/DL (3.2-5.2); ALBUMIN/GLOBULIN RATIO 1.23 (1.00-1.93); BILIRUBIN,DIRECT 0.3 MG/DL (0.0-0.2); BILIRUBIN,TOTAL 0.7 MG/DL (0.2-1.0); TOTAL PROTEIN 6.7 GM/DL (6.4-8.2)
[2016-07-29 23:23] LABS: GLUCOSE, FASTING 407 MG/DL (70-105)
[2016-07-29 23:27] LABS: BASO % 0.9 % (0.0-1.0); EOS # 0.3 K/mm3 (0.0-0.50); EOS % 7.2 % (0.0-3.0); LARGE UNSTAINED CELL # 0.1 K/mm3 (0.0-0.4); LARGE UNSTAINED CELL % 1.6 % (0.0-4.0); LYMPH # 0.6 K/mm3 (1.5-4.5); MEAN CORPUSCULAR HEMOGLOBIN 36.2 pg (27.0-33.0); MEAN CORPUSCULAR HGB CONC 33.5 g/dl (32.0-36.5); MONO # 0.3 K/mm3 (0.0-0.8); MONO % 5.4 % (0.0-5.0); NEUTROPHILS # 3.4 K/mm3 (1.8-7.7); NEUTROPHILS % 71.9 % (36.0-66.0); PLATELET COUNT, AUTOMATED 110 k/mm3 (150-450); RED CELL DISTRIBUTION WIDTH 14.8 % (11.5-14.5); WHITE BLOOD COUNT 4.8 K/mm3 (4.0-10.0)
[2016-07-29 23:30] LABS: ADD MORPHOLOGY? YES
[2016-07-29] MEDS ORDERED: HumuLIN R (REGULAR) INSULIN (NovoLIN R) **100U/ML** PER UNIT IV ONE (23:30)
--- NOTE | 2016-07-30 00:10 | REPUSA ---
Clinical history: Cough. Comparison: None. Findings: Frontal and lateral views of the chest were obtained. The mediastinum and cardiac silhouett e are within normal limits. There is a right lower lobe infiltrate and pleural effusion. The osseous structures and soft tissues are unremarkable. Impression: Right lower lobe infiltrate and pleural effusion.
[2016-07-30] MEDS ORDERED: AZITHROMYCIN 250 MG TAB PO ONE (00:15)
[2016-07-30] MEDS ORDERED: AZIT250T3 PO (02:03)
[2016-07-30 02:15] VITALS: BP 179/81
== END 2016-07-30 02:22 | disposition home or self-care (01) ==
LOC: EDBD 22:04 → M ED 22:43
DX: J18.9 Pneumonia, unspecified organism (principal); E11.65 Type 2 diabetes mellitus with hyperglycemia; E11.22 Type 2 diabetes mellitus with diabetic chronic kidney disease; I12.0 Hypertensive chronic kidney disease with stage 5 chronic kidney disease or end stage renal disease; N18.6 End stage renal disease; J30.2 Other seasonal allergic rhinitis; Z99.2 Dependence on renal dialysis; Z89.422 Acquired absence of other left toe(s); Z79.4 Long term (current) use of insulin; Z79.82 Long term (current) use of aspirin; Z79.899 Other long term (current) drug therapy; Z91.040 Latex allergy status

== ENCOUNTER → 2016-11-03 | Outpatient (CLI) | payer BC ==
[~2016-11-03] MED LIST changes: +AZIT-12 PO; +CIPR-249 PO; -CIPR500T89 PO; -VITA-130 PO; +VITA500T PO
[2016-11-03 20:11] LABS: ALBUMIN 3.8 GM/DL (3.2-5.2); ALBUMIN/GLOBULIN RATIO 1.23 (1.00-1.93); BILIRUBIN,DIRECT 0.3 MG/DL (0.0-0.2); BILIRUBIN,TOTAL 0.7 MG/DL (0.2-1.0); TOTAL PROTEIN 6.9 GM/DL (6.4-8.2)
== END ==
LOC: M SMT 14:57
PROVIDERS: ATTEND Internal Medicine Gastroenterology
DX: R74.8 Abnormal levels of other serum enzymes (principal)

== ENCOUNTER → 2017-06-28 | Outpatient (REF) ==
[2017-06-28 10:35] LABS: HEMOGLOBIN 11.1 g/dl (12.0-15.5); MEAN CORPUSCULAR HGB CONC 30.8 g/dl (32.0-36.5); MEAN CORPUSCULAR VOLUME 103.7 fl (80.0-96.0); PLATELET COUNT, AUTOMATED 105 10^3/uL (150-450); RED BLOOD COUNT 3.47 10^6/uL (4.00-5.40); RED CELL DISTRIBUTION WIDTH 15.8 % (11.5-14.5); WHITE BLOOD COUNT 4.3 10^3/uL (4.0-10.0)
[2017-06-28 11:09] LABS: ANION GAP 14 MEQ/L (8-16); BLOOD UREA NITROGEN 104 MG/DL (7-18); CALCIUM LEVEL 8.6 MG/DL (8.5-10.1); CARBON DIOXIDE LEVEL 25 MEQ/L (21-32); CHLORIDE LEVEL 99 MEQ/L (98-107); CREATININE FOR GFR 4.48 MG/DL (0.55-1.30); GLOMERULAR FILTRATION RATE 11.6 (>58); GLUCOSE, FASTING 135 MG/DL (70-100); POTASSIUM SERUM 4.7 MEQ/L (3.5-5.1); SODIUM LEVEL 138 MEQ/L (136-145)
== END ==
DX: D64.9 Anemia, unspecified (principal)

== ENCOUNTER 2017-07-25 11:26 | Emergency (ER) | payer BC, MEDICARE ==
[2017-07-25 13:55] LABS: BASO % 0.8 % (0.0-1.0); EOS # 0.3 10^3/uL (0.0-0.50); EOS % 5.7 % (0.0-3.0); HEMATOCRIT 30.9 % (36.0-47.0); HEMOGLOBIN 9.8 g/dl (12.0-15.5); IMMATURE GRANULOCYTE % 0.2 % (0-3.0); LYMPH % 18.7 % (24.0-44.0); MEAN CORPUSCULAR HEMOGLOBIN 31.8 pg (27.0-33.0); MEAN CORPUSCULAR HGB CONC 31.7 g/dl (32.0-36.5); MEAN CORPUSCULAR VOLUME 100.3 fl (80.0-96.0); MONO # 0.5 10^3/uL (0.0-0.8); NEUTROPHILS # 3.3 10^3/uL (1.8-7.7); NEUTROPHILS % 64.6 % (36.0-66.0); PLATELET COUNT, AUTOMATED 122 10^3/uL (150-450); RED BLOOD COUNT 3.08 10^6/uL (4.00-5.40); RED CELL DISTRIBUTION WIDTH 17.2 % (11.5-14.5); WHITE BLOOD COUNT 5.1 10^3/uL (4.0-10.0)
[2017-07-25 14:23] LABS: ANION GAP 14 MEQ/L (8-16); BLOOD UREA NITROGEN 111 MG/DL (7-18); CALCIUM LEVEL 9.1 MG/DL (8.5-10.1); CARBON DIOXIDE LEVEL 23 MEQ/L (21-32); CHLORIDE LEVEL 98 MEQ/L (98-107); CPK CREATINE PHOSPHOKINASE 80 U/L (26-192); CREATININE FOR GFR 4.78 MG/DL (0.55-1.30); GLOMERULAR FILTRATION RATE 10.7 (>58); GLUCOSE, FASTING 363 MG/DL (70-100); POTASSIUM SERUM 4.5 MEQ/L (3.5-5.1); SODIUM LEVEL 135 MEQ/L (136-145); TROPONIN I 0.18 NG/ML (< 0.10)
[2017-07-25 14:24] LABS: CK-MB VALUE MASS 11.6 NG/ML (<3.6)
[2017-07-25 17:37] LABS: CPK CREATINE PHOSPHOKINASE 62 U/L (26-192); MB/CK RELATIVE INDEX 16.12 (< OR =4); TROPONIN I 0.19 NG/ML (< 0.10)
[2017-07-25] MEDS: ONDANSETRON 4 MG ORAL DISINTEGRATING TAB (Q0162 PER 1MG) PO ×3 (20:53)
== END 2017-07-25 21:45 | disposition home or self-care (01) ==
LOC: M ED 11:26
DX: R11.0 Nausea (principal); E11.9 Type 2 diabetes mellitus without complications; I12.9 Hypertensive chronic kidney disease with stage 1 through stage 4 chronic kidney disease, or unspecified chronic kidney disease; N18.9 Chronic kidney disease, unspecified; Z79.2 Long term (current) use of antibiotics; Z79.4 Long term (current) use of insulin; Z79.899 Other long term (current) drug therapy
CPT/HCPCS: Q0162

== ENCOUNTER 2017-09-29 08:17 | Inpatient (IN) | payer MEDICARE, BC ==
[2017-09-29] MEDS: ESCITALOPRAM OXALATE 10 MG TAB (LEXAPRO) PO (09:00)
[2017-09-29 09:29] LABS: BASO % 0.4 % (0.0-1.0); EOS % 0.5 % (0.0-3.0); HEMATOCRIT 34.3 % (36.0-47.0); IMMATURE GRANULOCYTE % 0.5 % (0-3.0); LYMPH # 0.4 10^3/uL (1.5-4.5); LYMPH % 5.2 % (24.0-44.0); MEAN CORPUSCULAR HEMOGLOBIN 34.2 pg (27.0-33.0); MEAN CORPUSCULAR HGB CONC 32.1 g/dl (32.0-36.5); MEAN CORPUSCULAR VOLUME 106.5 fl (80.0-96.0); MONO # 0.4 10^3/uL (0.0-0.8); MONO % 5.8 % (0.0-5.0); NEUTROPHILS # 6.4 10^3/uL (1.8-7.7); NEUTROPHILS % 87.6 % (36.0-66.0); PLATELET COUNT, AUTOMATED 106 10^3/uL (150-450); RED BLOOD COUNT 3.22 10^6/uL (4.00-5.40); RED CELL DISTRIBUTION WIDTH 14.3 % (11.5-14.5); WHITE BLOOD COUNT 7.3 10^3/uL (4.0-10.0)
[2017-09-29] MEDS: ONDANSETRON 4MG/2ML VIAL (J2405) IV ×3 (09:52→19:30)
[2017-09-29] MEDS: NS 500 ML IV (09:52)
[2017-09-29 10:01] LABS: ALBUMIN 3.5 GM/DL (3.2-5.2); ALKALINE PHOSPHATASE 211 U/L (45-117); ALT/SGPT 42 U/L (12-78); ANION GAP 21 MEQ/L (8-16); AST/SGOT 25 U/L (7-37); BILIRUBIN,DIRECT 0.3 MG/DL (0.0-0.2); BILIRUBIN,TOTAL 0.8 MG/DL (0.2-1.0); BLOOD UREA NITROGEN 105 MG/DL (7-18); CARBON DIOXIDE LEVEL 21 MEQ/L (21-32); CHLORIDE LEVEL 95 MEQ/L (98-107); CK-MB VALUE MASS 6.2 NG/ML (<3.6); CPK CREATINE PHOSPHOKINASE 71 U/L (26-192); GLOMERULAR FILTRATION RATE 8.3 (>58); GLUCOSE, FASTING 240 MG/DL (70-100); LIPASE 38 U/L (73-393); MB/CK RELATIVE INDEX 8.73 (< OR =4); POTASSIUM SERUM 4.6 MEQ/L (3.5-5.1); SODIUM LEVEL 137 MEQ/L (136-145); TROPONIN I 0.09 NG/ML (< 0.10)
[2017-09-29 10:03] LABS: LACTIC ACID SEPSIS PROTOCOL 1.3 MMOL/L (0.4-2.0)
[2017-09-29] MEDS: PIPERACILLIN/TAZOBACTAM SOD 2.25 GM in D5W MINI-BAG PLUS 50 ML IV (12:30)
[2017-09-29] MEDS ORDERED: VANCOMYCIN HCL 1,000 MG, VIAL MATE ADAPTER 1 EACH in D5W 250 ML IV (13:15)
[2017-09-29] MEDS ORDERED: MEROPENEM INJ 0.5 GM in APPROPRIATE DILUENT 1 EA IV (13:15)
[2017-09-29] MEDS: HEPARIN 1,000 UNITS/ML 10ML VIAL (FOR RADIOLOGY& DIALYSIS ONLY) IV (13:15)
[2017-09-29] MEDS ORDERED: GLUCAGON FOR INJ 1 MG VIAL (J1610) SC (13:15)
[2017-09-29] MEDS ORDERED: GLUCOSE 4 GM CHEW TABLET PO (13:15)
[2017-09-29] MEDS: LIDOCAINE 1% SDV 5 ML VIAL SQ (13:15)
[2017-09-29] MEDS ORDERED: POLYVINYL ALCOHOL OPHTH SOLN 15 ML(LIQUITEARS) OU (13:15)
[2017-09-29] MEDS ORDERED: DEXTROSE 50% 50 ML SYRINGE IV (13:15)
[2017-09-29] MEDS ORDERED: hydrALAZINE INJ 20 MG/ML VIAL IV (13:30)
[2017-09-29 14:11] LABS: ESTIMATED AVERAGE GLUCOSE 163 MG/DL (60-110); HEMOGLOBIN A1c 7.3 %
[2017-09-29 14:11] LABS: BEDSIDE GLUCOSE 197 MG/DL (70-105)
[2017-09-29 14:21] LABS: ABG BASE EXCESS -5.6 (-2.0-2.0); ABG O2 SATURATION 85.1 % (95.0-99.0); ABG PARTIAL PRESSURE CO2 33.9 mmHg (35.0-45.0); ABG PARTIAL PRESSURE O2 56.5 mmHg (75.0-100.0); ABG STANDARD HCO3 19.7 MEQ/L (22.0-26.0); ABG pH (ARTERIAL) 7.366 UNITS (7.350-7.450)
[2017-09-29] MEDS: HumaLOG INSULIN (NovoLOG) PER UNIT SC ×3 (14:22→20:19)
[2017-09-29] MEDS: PROMETHAZINE INJ 25 MG/ML VIAL (J2550) IV ×2 (14:22→22:56)
[2017-09-29] MEDS: LABETALOL HCL 100 MG/20 ML VIAL IV ×3 (14:22→22:44)
[2017-09-29 14:25] LABS: ACETONE/KETONE 30.25 MG/DL (<2.81); CK-MB VALUE MASS 6.8 NG/ML (<3.6); CPK CREATINE PHOSPHOKINASE 81 U/L (26-192); LDH LACTATE DEHYDROGENASE 243 U/L (84-246); MB/CK RELATIVE INDEX 8.39 (< OR =4); TROPONIN I 0.09 NG/ML (< 0.10)
[2017-09-29] MEDS: HumuLIN R (REGULAR) INSULIN (NovoLIN R) **100U/ML** PER UNIT SC (15:42)
[2017-09-29 16:27] LABS: BEDSIDE GLUCOSE 200 MG/DL (70-105)
[2017-09-29 17:52] LABS: BEDSIDE GLUCOSE 160 MG/DL (70-105)
[2017-09-29] MEDS: PATIROMER SORBITEX CALCIUM 8.4 GM POWDER PACKET (VELTASSA) PO (18:00)
[2017-09-29] MEDS: hydrALAZINE INJ 20 MG/ML VIAL IV (18:07)
[2017-09-29 19:24] LABS: BEDSIDE GLUCOSE 115 MG/DL (70-105)
[2017-09-29] MEDS: MEROPENEM INJ 500 MG in APPROPRIATE DILUENT 1 EA IV (19:29)
[2017-09-29] MEDS: DOCUSATE SODIUM 100 MG CAP PO (20:20)
[2017-09-29] MEDS: VANCOMYCIN HCL 1,000 MG, VIAL MATE ADAPTER 1 EACH in D5W 250 ML IV (20:24)
[2017-09-29 20:28] LABS: ANION GAP 14 MEQ/L (8-16); BLOOD UREA NITROGEN 46 MG/DL (7-18); CALCIUM LEVEL 9.3 MG/DL (8.5-10.1); CARBON DIOXIDE LEVEL 26 MEQ/L (21-32); CHLORIDE LEVEL 99 MEQ/L (98-107); CPK CREATINE PHOSPHOKINASE 91 U/L (26-192); CREATININE FOR GFR 3.63 MG/DL (0.55-1.30); GLOMERULAR FILTRATION RATE 14.8 (>58); GLUCOSE, FASTING 99 MG/DL (70-100); POTASSIUM SERUM 3.9 MEQ/L (3.5-5.1); SODIUM LEVEL 139 MEQ/L (136-145); TROPONIN I 0.08 NG/ML (< 0.10)
[2017-09-29 20:30] LABS: ACETONE/KETONE 11.08 MG/DL (<2.81); CK-MB VALUE MASS 7.4 NG/ML (<3.6); MB/CK RELATIVE INDEX 8.13 (< OR =4)
[2017-09-29] MEDS: HumuLIN N INSULIN (NovoLIN N) PER UNIT SC (20:34)
[2017-09-29] MEDS: HEPARIN SOD (PORCINE) 5000 UNITS/ML VIAL SQ (20:35)
[2017-09-29] MEDS: VANCOMYCIN HCL 500 MG in D5W MINI-BAG PLUS 100 ML IV (21:33)
[2017-09-29] MEDS: cloNIDine HCL 0.1 MG/24 HR PATCH TOP (23:15)
[2017-09-30 00:37] LABS: ACETONE/KETONE 28.52 MG/DL (<2.81); ANION GAP 13 MEQ/L (8-16); BLOOD UREA NITROGEN 47 MG/DL (7-18); CALCIUM LEVEL 8.7 MG/DL (8.5-10.1); CARBON DIOXIDE LEVEL 26 MEQ/L (21-32); CHLORIDE LEVEL 98 MEQ/L (98-107); CREATININE FOR GFR 3.78 MG/DL (0.55-1.30); GLOMERULAR FILTRATION RATE 14.1 (>58); GLUCOSE, FASTING 168 MG/DL (70-100); POTASSIUM SERUM 3.8 MEQ/L (3.5-5.1); SODIUM LEVEL 137 MEQ/L (136-145)
[2017-09-30 00:39] LABS: CK-MB VALUE MASS 4.3 NG/ML (<3.6); CPK CREATINE PHOSPHOKINASE 75 U/L (26-192); MB/CK RELATIVE INDEX 5.73 (< OR =4)
[2017-09-30] MEDS: hydrALAZINE INJ 20 MG/ML VIAL IV ×5 (00:55→20:25)
[2017-09-30] MEDS: ACETAMINOPHEN TAB 650MG DOSE (2X325MG) PO (04:22)
[2017-09-30 04:27] LABS: HEMOGLOBIN 10.1 g/dl (12.0-15.5); MEAN CORPUSCULAR HEMOGLOBIN 33.7 pg (27.0-33.0); MEAN CORPUSCULAR HGB CONC 31.6 g/dl (32.0-36.5); MEAN CORPUSCULAR VOLUME 106.7 fl (80.0-96.0); PLATELET COUNT, AUTOMATED 101 10^3/uL (150-450); RED CELL DISTRIBUTION WIDTH 14.6 % (11.5-14.5)
[2017-09-30 04:53] LABS: ALBUMIN 3.2 GM/DL (3.2-5.2); ALBUMIN/GLOBULIN RATIO 0.94 (1.00-1.93); ALKALINE PHOSPHATASE 173 U/L (45-117); ALT/SGPT 35 U/L (12-78); ANION GAP 17 MEQ/L (8-16); AST/SGOT 19 U/L (7-37); BILIRUBIN,TOTAL 0.9 MG/DL (0.2-1.0); BLOOD UREA NITROGEN 51 MG/DL (7-18); C REACTIVE PROTEIN QUANTITATIV 5.01 MG/DL (0.00-0.30); CALCIUM LEVEL 8.9 MG/DL (8.5-10.1); CARBON DIOXIDE LEVEL 22 MEQ/L (21-32); CHLORIDE LEVEL 96 MEQ/L (98-107); CREATININE FOR GFR 4.03 MG/DL (0.55-1.30); GLOMERULAR FILTRATION RATE 13.1 (>58); GLUCOSE, FASTING 268 MG/DL (70-100); MAGNESIUM LEVEL 2.3 MG/DL (1.8-2.4); PHOSPHORUS LEVEL 4.8 MG/DL (2.5-4.9); SODIUM LEVEL 135 MEQ/L (136-145); TOTAL PROTEIN 6.6 GM/DL (6.4-8.2)
[2017-09-30 04:55] LABS: INR 1.27
[2017-09-30 04:56] LABS: PARTIAL THROMBOPLASTIN TIME 32.3 SECONDS (25.4-37.6)
[2017-09-30 05:13] LABS: ACETONE/KETONE > 46.00 MG/DL (<2.81)
[2017-09-30 07:51] LABS: BEDSIDE GLUCOSE 343 MG/DL (70-105)
[2017-09-30] MEDS: HumaLOG INSULIN (NovoLOG) PER UNIT SC ×2 (07:54→20:25)
[2017-09-30] MEDS: VITAMIN D 50,000 UNITS CAPSULE (ERGOCALCIFEROL 1.25MG) PO (08:54)
[2017-09-30] MEDS: ESCITALOPRAM OXALATE 10 MG TAB (LEXAPRO) PO (08:54)
[2017-09-30] MEDS: DOCUSATE SODIUM 100 MG CAP PO ×2 (08:54→20:26)
[2017-09-30] MEDS ORDERED: INSULIN IV RATE CHANGE DOCUMENTATION ML/HR XX (10:00)
[2017-09-30] MEDS: HEPARIN 1,000 UNITS/ML 10ML VIAL (FOR RADIOLOGY& DIALYSIS ONLY) IV (11:00)
[2017-09-30] MEDS: INSULIN HUMAN REGULAR 100 UNITS in NS 99 ML IV (12:00)
[2017-09-30 12:40] LABS: ACETONE/KETONE 22.45 MG/DL (<2.81)
[2017-09-30 12:40] LABS: ANION GAP 12 MEQ/L (8-16); BLOOD UREA NITROGEN 22 MG/DL (7-18); CALCIUM LEVEL 9.8 MG/DL (8.5-10.1); CARBON DIOXIDE LEVEL 27 MEQ/L (21-32); CHLORIDE LEVEL 100 MEQ/L (98-107); CREATININE FOR GFR 2.03 MG/DL (0.55-1.30); GLOMERULAR FILTRATION RATE 28.9 (>58); GLUCOSE, FASTING 133 MG/DL (70-100); POTASSIUM SERUM 3.4 MEQ/L (3.5-5.1); SODIUM LEVEL 139 MEQ/L (136-145)
[2017-09-30 14:25] LABS: BEDSIDE GLUCOSE 257 MG/DL (70-105)
[2017-09-30] MEDS: LEVEMIR (INSULIN DETEMIR) 1 UNITS/0.01ML SC ×2 (14:42→20:25)
[2017-09-30 14:53] LABS: ANION GAP 13 MEQ/L (8-16); BLOOD UREA NITROGEN 21 MG/DL (7-18); CALCIUM LEVEL 9.8 MG/DL (8.5-10.1); CARBON DIOXIDE LEVEL 25 MEQ/L (21-32); CHLORIDE LEVEL 100 MEQ/L (98-107); CREATININE FOR GFR 2.29 MG/DL (0.55-1.30); GLOMERULAR FILTRATION RATE 25.1 (>58); GLUCOSE, FASTING 135 MG/DL (70-100); POTASSIUM SERUM 3.5 MEQ/L (3.5-5.1); SODIUM LEVEL 138 MEQ/L (136-145)
[2017-09-30] MEDS: **VANCO AFTER HD** MISC XX (17:00)
[2017-09-30] MEDS: ONDANSETRON 4MG/2ML VIAL (J2405) IV (17:25)
[2017-09-30] MEDS: VANCOMYCIN HCL 1,000 MG, VIAL MATE ADAPTER 1 EACH in D5W 250 ML IV (17:25)
[2017-09-30 17:34] LABS: PH BODY FLUID 7.606 UNITS (NOT ESTABLISHED); SOURCE, BODY FLUID pH PLEURAL
[2017-09-30 17:42] LABS: BEDSIDE GLUCOSE 182 MG/DL (70-105)
[2017-09-30 17:45] LABS: ANION GAP 16 MEQ/L (8-16); BLOOD UREA NITROGEN 23 MG/DL (7-18); CALCIUM LEVEL 9.8 MG/DL (8.5-10.1); CARBON DIOXIDE LEVEL 22 MEQ/L (21-32); CHLORIDE LEVEL 99 MEQ/L (98-107); CREATININE FOR GFR 2.49 MG/DL (0.55-1.30); GLOMERULAR FILTRATION RATE 22.8 (>58); GLUCOSE, FASTING 168 MG/DL (70-100); POTASSIUM SERUM 3.9 MEQ/L (3.5-5.1); SODIUM LEVEL 137 MEQ/L (136-145)
[2017-09-30 18:05] LABS: AMYLASE, BODY FLUID 14 U/L (NOT ESTABLISHED); CHOLESTEROL, BODY FLUID < 50 MG/DL (NOT ESTABLISHED); LDH, BODY FLUID 74 U/L (NOT ESTABLISHED); SOURCE, BODY FLUID AMYLASE PLEURAL; SOURCE, BODY FLUID CHOL PLEURAL; SOURCE, BODY FLUID GLUCOSE PLEURAL; SOURCE, BODY FLUID LDH PLEURAL; SOURCE, BODY FLUID TRIG PLEURAL; TRIGLYCERIDE, BODY FLUID 35 MG/DL (NOT ESTABLISHED)
[2017-09-30 18:06] LABS: SOURCE, BODY FLUID ALBUMIN PLEURAL; SOURCE, BODY FLUID TOT PROTEIN PLEURAL; TOTAL PROTEIN, BODY FLUID 2.6 G/DL (NOT ESTABLISHED)
[2017-09-30 18:21] LABS: BF MONONUCLEAR CELL % 91.5 % (0-0); BF POLYMORPHONUCLEAR CELL % 8.5 % (0-0); RBC BODY FLUID < 2 10^3/uL (<2); WBC BODY FLUID 47 /uL (0-10)
[2017-09-30 18:25] LABS: APPEARANCE, BODY FLUID CLEAR (CLEAR); PLEURAL FL COLOR YELLOW (COLORLESS); SOURCE, BODY FLUID PLEURAL
[2017-09-30 18:26] LABS: BF DIFF IF INDICATED? YES (NO)
[2017-09-30] MEDS: MEROPENEM INJ 500 MG in APPROPRIATE DILUENT 1 EA IV (20:24)
[2017-09-30 20:34] LABS: BEDSIDE GLUCOSE 170 MG/DL (70-105)
[2017-09-30 20:49] LABS: ANION GAP 15 MEQ/L (8-16); BLOOD UREA NITROGEN 26 MG/DL (7-18); CALCIUM LEVEL 9.3 MG/DL (8.5-10.1); CARBON DIOXIDE LEVEL 24 MEQ/L (21-32); CHLORIDE LEVEL 101 MEQ/L (98-107); CREATININE FOR GFR 2.72 MG/DL (0.55-1.30); GLOMERULAR FILTRATION RATE 20.6 (>58); GLUCOSE, FASTING 179 MG/DL (70-100); SODIUM LEVEL 140 MEQ/L (136-145)
[2017-09-30 22:33] LABS: ANION GAP 13 MEQ/L (8-16); BLOOD UREA NITROGEN 28 MG/DL (7-18); CALCIUM LEVEL 9.1 MG/DL (8.5-10.1); CARBON DIOXIDE LEVEL 26 MEQ/L (21-32); CHLORIDE LEVEL 101 MEQ/L (98-107); CREATININE FOR GFR 2.91 MG/DL (0.55-1.30); GLOMERULAR FILTRATION RATE 19.1 (>58); GLUCOSE, FASTING 165 MG/DL (70-100); POTASSIUM SERUM 3.9 MEQ/L (3.5-5.1); SODIUM LEVEL 140 MEQ/L (136-145)
[2017-10-01 00:20] LABS: ANION GAP 12 MEQ/L (8-16); BLOOD UREA NITROGEN 31 MG/DL (7-18); CALCIUM LEVEL 9.1 MG/DL (8.5-10.1); CARBON DIOXIDE LEVEL 26 MEQ/L (21-32); CHLORIDE LEVEL 101 MEQ/L (98-107); CREATININE FOR GFR 2.97 MG/DL (0.55-1.30); GLOMERULAR FILTRATION RATE 18.6 (>58); GLUCOSE, FASTING 147 MG/DL (70-100); POTASSIUM SERUM 3.8 MEQ/L (3.5-5.1); SODIUM LEVEL 139 MEQ/L (136-145)
[2017-10-01 02:18] LABS: ANION GAP 11 MEQ/L (8-16); BLOOD UREA NITROGEN 32 MG/DL (7-18); CALCIUM LEVEL 9.1 MG/DL (8.5-10.1); CARBON DIOXIDE LEVEL 27 MEQ/L (21-32); CHLORIDE LEVEL 101 MEQ/L (98-107); CREATININE FOR GFR 3.15 MG/DL (0.55-1.30); GLOMERULAR FILTRATION RATE 17.4 (>58); GLUCOSE, FASTING 115 MG/DL (70-100); POTASSIUM SERUM 3.8 MEQ/L (3.5-5.1); SODIUM LEVEL 139 MEQ/L (136-145)
[2017-10-01 04:10] LABS: ANION GAP 10 MEQ/L (8-16); BLOOD UREA NITROGEN 32 MG/DL (7-18); CALCIUM LEVEL 8.9 MG/DL (8.5-10.1); CARBON DIOXIDE LEVEL 28 MEQ/L (21-32); CHLORIDE LEVEL 101 MEQ/L (98-107); CREATININE FOR GFR 3.33 MG/DL (0.55-1.30); GLOMERULAR FILTRATION RATE 16.3 (>58); GLUCOSE, FASTING 91 MG/DL (70-100); POTASSIUM SERUM 3.8 MEQ/L (3.5-5.1); SODIUM LEVEL 139 MEQ/L (136-145)
[2017-10-01] MEDS: hydrALAZINE INJ 20 MG/ML VIAL IV ×3 (05:58→12:00)
[2017-10-01 06:09] LABS: HEMATOCRIT 32.7 % (36.0-47.0); HEMOGLOBIN 10.3 g/dl (12.0-15.5); MEAN CORPUSCULAR HEMOGLOBIN 33.4 pg (27.0-33.0); MEAN CORPUSCULAR HGB CONC 31.5 g/dl (32.0-36.5); MEAN CORPUSCULAR VOLUME 106.2 fl (80.0-96.0); PLATELET COUNT, AUTOMATED 121 10^3/uL (150-450); RED BLOOD COUNT 3.08 10^6/uL (4.00-5.40); RED CELL DISTRIBUTION WIDTH 14.5 % (11.5-14.5); WHITE BLOOD COUNT 5.1 10^3/uL (4.0-10.0)
[2017-10-01 06:20] LABS: ALBUMIN/GLOBULIN RATIO 0.88 (1.00-1.93); ALKALINE PHOSPHATASE 149 U/L (45-117); ALT/SGPT 35 U/L (12-78); ANION GAP 13 MEQ/L (8-16); AST/SGOT 21 U/L (7-37); BILIRUBIN,TOTAL 0.7 MG/DL (0.2-1.0); BLOOD UREA NITROGEN 34 MG/DL (7-18); C REACTIVE PROTEIN QUANTITATIV 7.79 MG/DL (0.00-0.30); CALCIUM LEVEL 8.9 MG/DL (8.5-10.1); CARBON DIOXIDE LEVEL 26 MEQ/L (21-32); CHLORIDE LEVEL 101 MEQ/L (98-107); CREATININE FOR GFR 3.46 MG/DL (0.55-1.30); GLOMERULAR FILTRATION RATE 15.6 (>58); GLUCOSE, FASTING 75 MG/DL (70-100); MAGNESIUM LEVEL 2.2 MG/DL (1.8-2.4); POTASSIUM SERUM 3.8 MEQ/L (3.5-5.1); SODIUM LEVEL 140 MEQ/L (136-145); TOTAL PROTEIN 6.4 GM/DL (6.4-8.2); VANCOMYCIN RANDOM 33.6 UG/ML
[2017-10-01 07:51] LABS: BEDSIDE GLUCOSE 110 MG/DL (70-105)
[2017-10-01 08:14] LABS: ANION GAP 10 MEQ/L (8-16); BLOOD UREA NITROGEN 36 MG/DL (7-18); CALCIUM LEVEL 8.8 MG/DL (8.5-10.1); CARBON DIOXIDE LEVEL 29 MEQ/L (21-32); CHLORIDE LEVEL 101 MEQ/L (98-107); CREATININE FOR GFR 3.54 MG/DL (0.55-1.30); GLOMERULAR FILTRATION RATE 15.2 (>58); GLUCOSE, FASTING 118 MG/DL (70-100); SODIUM LEVEL 140 MEQ/L (136-145)
[2017-10-01] MEDS: ESCITALOPRAM OXALATE 10 MG TAB (LEXAPRO) PO (08:42)
[2017-10-01] MEDS: HumaLOG INSULIN (NovoLOG) PER UNIT SC ×4 (08:43→21:00)
[2017-10-01] MEDS: LEVEMIR (INSULIN DETEMIR) 1 UNITS/0.01ML SC ×2 (08:43→20:58)
[2017-10-01] MEDS: DOCUSATE SODIUM 100 MG CAP PO ×2 (08:43→20:58)
[2017-10-01 10:56] LABS: ABG BASE EXCESS 2.8 (-2.0-2.0); ABG HCO3 27.2 MEQ/L (22.0-26.0); ABG O2 SATURATION 91.2 % (95.0-99.0); ABG PARTIAL PRESSURE CO2 41.4 mmHg (35.0-45.0); ABG PARTIAL PRESSURE O2 61.3 mmHg (75.0-100.0); ABG STANDARD HCO3 26.8 MEQ/L (22.0-26.0); ABG TOTAL CO2 28.5 MEQ/L (22.0-29.0); ABG pH (ARTERIAL) 7.436 UNITS (7.350-7.450)
[2017-10-01 12:01] LABS: BEDSIDE GLUCOSE 111 MG/DL (70-105)
[2017-10-01] MEDS: AZITHROMYCIN 250 MG TAB PO (12:21)
[2017-10-01 18:00] LABS: BEDSIDE GLUCOSE 73 MG/DL (70-105)
[2017-10-01 20:01] LABS: BEDSIDE GLUCOSE 112 MG/DL (70-105)
[2017-10-02 05:23] LABS: HEMATOCRIT 34.5 % (36.0-47.0); MEAN CORPUSCULAR HEMOGLOBIN 33.3 pg (27.0-33.0); MEAN CORPUSCULAR HGB CONC 31.9 g/dl (32.0-36.5); MEAN CORPUSCULAR VOLUME 104.5 fl (80.0-96.0); PLATELET COUNT, AUTOMATED 116 10^3/uL (150-450); RED CELL DISTRIBUTION WIDTH 14.4 % (11.5-14.5); WHITE BLOOD COUNT 4.8 10^3/uL (4.0-10.0)
[2017-10-02 05:42] LABS: ALBUMIN 2.9 GM/DL (3.2-5.2); ALBUMIN/GLOBULIN RATIO 0.97 (1.00-1.93); ALKALINE PHOSPHATASE 153 U/L (45-117); ALT/SGPT 31 U/L (12-78); ANION GAP 10 MEQ/L (8-16); AST/SGOT 22 U/L (7-37); BILIRUBIN,TOTAL 0.9 MG/DL (0.2-1.0); BLOOD UREA NITROGEN 18 MG/DL (7-18); C REACTIVE PROTEIN QUANTITATIV 6.25 MG/DL (0.00-0.30); CALCIUM LEVEL 8.9 MG/DL (8.5-10.1); CARBON DIOXIDE LEVEL 29 MEQ/L (21-32); CHLORIDE LEVEL 100 MEQ/L (98-107); CREATININE FOR GFR 2.65 MG/DL (0.55-1.30); GLOMERULAR FILTRATION RATE 21.2 (>58); GLUCOSE, FASTING 59 MG/DL (70-100); MAGNESIUM LEVEL 2.2 MG/DL (1.8-2.4); POTASSIUM SERUM 3.7 MEQ/L (3.5-5.1); SODIUM LEVEL 139 MEQ/L (136-145); TOTAL PROTEIN 5.9 GM/DL (6.4-8.2)
[2017-10-02 06:18] LABS: BEDSIDE GLUCOSE 78 MG/DL (70-105)
[2017-10-02] MEDS: HumaLOG INSULIN (NovoLOG) PER UNIT SC ×4 (07:54→20:09)
[2017-10-02] MEDS: LEVEMIR (INSULIN DETEMIR) 1 UNITS/0.01ML SC (09:48)
[2017-10-02] MEDS: DOCUSATE SODIUM 100 MG CAP PO ×2 (10:00→10:01)
[2017-10-02] MEDS: ESCITALOPRAM OXALATE 10 MG TAB (LEXAPRO) PO (10:00)
[2017-10-02] MEDS: AZITHROMYCIN 250 MG TAB PO (10:01)
[2017-10-02 10:53] LABS: BEDSIDE GLUCOSE 122 MG/DL (70-105)
[2017-10-02 16:54] LABS: BEDSIDE GLUCOSE 299 MG/DL (70-105)
[2017-10-02] MEDS ORDERED: TOLNAFTATE TOP (17:00)
[2017-10-02 19:56] LABS: BEDSIDE GLUCOSE 460 MG/DL (70-105)
[2017-10-03 05:42] LABS: HEMOGLOBIN 10.8 g/dl (12.0-15.5); MEAN CORPUSCULAR HEMOGLOBIN 33.8 pg (27.0-33.0); MEAN CORPUSCULAR HGB CONC 31.8 g/dl (32.0-36.5); MEAN CORPUSCULAR VOLUME 106.3 fl (80.0-96.0); PLATELET COUNT, AUTOMATED 115 10^3/uL (150-450); RED CELL DISTRIBUTION WIDTH 14.4 % (11.5-14.5)
[2017-10-03 06:14] LABS: ALBUMIN 2.9 GM/DL (3.2-5.2); ALKALINE PHOSPHATASE 194 U/L (45-117); ALT/SGPT 33 U/L (12-78); ANION GAP 14 MEQ/L (8-16); AST/SGOT 25 U/L (7-37); BILIRUBIN,TOTAL 0.9 MG/DL (0.2-1.0); BLOOD UREA NITROGEN 37 MG/DL (7-18); C REACTIVE PROTEIN QUANTITATIV 3.55 MG/DL (0.00-0.30); CALCIUM LEVEL 8.1 MG/DL (8.5-10.1); CARBON DIOXIDE LEVEL 22 MEQ/L (21-32); CHLORIDE LEVEL 96 MEQ/L (98-107); CREATININE FOR GFR 4.47 MG/DL (0.55-1.30); GLOMERULAR FILTRATION RATE 11.6 (>58); MAGNESIUM LEVEL 2.4 MG/DL (1.8-2.4); TOTAL PROTEIN 5.8 GM/DL (6.4-8.2)
[2017-10-03 06:22] LABS: GLUCOSE, FASTING 413 MG/DL (70-100); SODIUM LEVEL 132 MEQ/L (136-145)
[2017-10-03 06:23] LABS: POTASSIUM SERUM 4.8 MEQ/L (3.5-5.1)
[2017-10-03] MEDS: HumaLOG INSULIN (NovoLOG) PER UNIT SC ×4 (06:54→20:54)
[2017-10-03] MEDS: AZITHROMYCIN 250 MG TAB PO (09:09)
[2017-10-03] MEDS: ESCITALOPRAM OXALATE 10 MG TAB (LEXAPRO) PO (09:09)
[2017-10-03] MEDS: LEVEMIR (INSULIN DETEMIR) 1 UNITS/0.01ML SC ×2 (10:51→16:07)
[2017-10-03 12:01] LABS: BEDSIDE GLUCOSE 357 MG/DL (70-105)
[2017-10-03 16:49] LABS: BEDSIDE GLUCOSE 285 MG/DL (70-105)
[2017-10-03 20:38] LABS: BEDSIDE GLUCOSE 193 MG/DL (70-105)
[2017-10-04] MEDS: AZITHROMYCIN 250 MG TAB PO (05:41)
[2017-10-04] MEDS: ESCITALOPRAM OXALATE 10 MG TAB (LEXAPRO) PO (05:41)
[2017-10-04 05:48] LABS: HEMATOCRIT 33.7 % (36.0-47.0); HEMOGLOBIN 11.2 g/dl (12.0-15.5); MEAN CORPUSCULAR HEMOGLOBIN 33.4 pg (27.0-33.0); MEAN CORPUSCULAR HGB CONC 33.2 g/dl (32.0-36.5); MEAN CORPUSCULAR VOLUME 100.6 fl (80.0-96.0); PLATELET COUNT, AUTOMATED 133 10^3/uL (150-450); RED BLOOD COUNT 3.35 10^6/uL (4.00-5.40); RED CELL DISTRIBUTION WIDTH 14.3 % (11.5-14.5); WHITE BLOOD COUNT 5.7 10^3/uL (4.0-10.0)
[2017-10-04 06:08] LABS: ALBUMIN 2.7 GM/DL (3.2-5.2); ALBUMIN/GLOBULIN RATIO 0.73 (1.00-1.93); ALKALINE PHOSPHATASE 192 U/L (45-117); ALT/SGPT 29 U/L (12-78); ANION GAP 12 MEQ/L (8-16); AST/SGOT 16 U/L (7-37); BILIRUBIN,TOTAL 0.8 MG/DL (0.2-1.0); BLOOD UREA NITROGEN 55 MG/DL (7-18); C REACTIVE PROTEIN QUANTITATIV 2.75 MG/DL (0.00-0.30); CALCIUM LEVEL 8.4 MG/DL (8.5-10.1); CARBON DIOXIDE LEVEL 24 MEQ/L (21-32); CHLORIDE LEVEL 98 MEQ/L (98-107); CREATININE FOR GFR 5.95 MG/DL (0.55-1.30); GLOMERULAR FILTRATION RATE 8.3 (>58); GLUCOSE, FASTING 203 MG/DL (70-100); MAGNESIUM LEVEL 2.7 MG/DL (1.8-2.4); POTASSIUM SERUM 4.8 MEQ/L (3.5-5.1); SODIUM LEVEL 134 MEQ/L (136-145); TOTAL PROTEIN 6.4 GM/DL (6.4-8.2)
[2017-10-04] MEDS: HumaLOG INSULIN (NovoLOG) PER UNIT SC ×4 (07:50→19:52)
[2017-10-04] MEDS: LEVEMIR (INSULIN DETEMIR) 1 UNITS/0.01ML SC ×2 (08:22→08:45)
[2017-10-04 11:34] LABS: BEDSIDE GLUCOSE 319 MG/DL (70-105)
[2017-10-04] MEDS: HEPARIN 1,000 UNITS/ML 10ML VIAL (FOR RADIOLOGY& DIALYSIS ONLY) IV (12:15)
[2017-10-04 17:04] LABS: BEDSIDE GLUCOSE 136 MG/DL (70-105)
[2017-10-04 19:46] LABS: BEDSIDE GLUCOSE 177 MG/DL (70-105)
[2017-10-05 06:00] LABS: HEMOGLOBIN 11.2 g/dl (12.0-15.5); MEAN CORPUSCULAR HEMOGLOBIN 33.4 pg (27.0-33.0); MEAN CORPUSCULAR VOLUME 104.5 fl (80.0-96.0); PLATELET COUNT, AUTOMATED 125 10^3/uL (150-450); RED BLOOD COUNT 3.35 10^6/uL (4.00-5.40); RED CELL DISTRIBUTION WIDTH 14.3 % (11.5-14.5)
[2017-10-05 06:14] LABS: ALBUMIN 2.8 GM/DL (3.2-5.2); ALBUMIN/GLOBULIN RATIO 0.97 (1.00-1.93); ALKALINE PHOSPHATASE 218 U/L (45-117); ALT/SGPT 26 U/L (12-78); ANION GAP 11 MEQ/L (8-16); AST/SGOT 17 U/L (7-37); BILIRUBIN,TOTAL 0.7 MG/DL (0.2-1.0); BLOOD UREA NITROGEN 43 MG/DL (7-18); C REACTIVE PROTEIN QUANTITATIV 2.16 MG/DL (0.00-0.30); CALCIUM LEVEL 7.9 MG/DL (8.5-10.1); CARBON DIOXIDE LEVEL 26 MEQ/L (21-32); CHLORIDE LEVEL 97 MEQ/L (98-107); CREATININE FOR GFR 4.42 MG/DL (0.55-1.30); GLOMERULAR FILTRATION RATE 11.8 (>58); MAGNESIUM LEVEL 2.4 MG/DL (1.8-2.4); SODIUM LEVEL 134 MEQ/L (136-145); TOTAL PROTEIN 5.7 GM/DL (6.4-8.2)
[2017-10-05 06:23] LABS: GLUCOSE, FASTING 500 MG/DL (70-100)
[2017-10-05] MEDS: HumaLOG INSULIN (NovoLOG) PER UNIT SC ×3 (06:53→12:15)
[2017-10-05 08:52] LABS: BEDSIDE GLUCOSE 476 MG/DL (70-105)
[2017-10-05] MEDS ORDERED: LEVEMIR (INSULIN DETEMIR) 1 UNITS/0.01ML SC (09:00)
[2017-10-05] MEDS: AZITHROMYCIN 250 MG TAB PO (09:10)
[2017-10-05] MEDS: LEVEMIR (INSULIN DETEMIR) 1 UNITS/0.01ML SC ×2 (09:10→15:03)
[2017-10-05] MEDS: ESCITALOPRAM OXALATE 10 MG TAB (LEXAPRO) PO (09:10)
[2017-10-05 11:24] LABS: BEDSIDE GLUCOSE 390 MG/DL (70-105)
[2017-10-05 14:02] LABS: BEDSIDE GLUCOSE 302 MG/DL (70-105)
[2017-10-05] MEDS ORDERED: HumuLIN R (REGULAR) INSULIN (NovoLIN R) **100U/ML** PER UNIT IV (14:20)
== END 2017-10-05 16:16 | disposition home health service (06) | DRG 193 ==
LOC: M MSPAV 10-01 13:00 → M ED 08:17 → M ED INP 12:58 → M ICU 15:06
PROVIDERS: Hospitalist
PROC: 5A1D70Z Performance of Urinary Filtration, Intermittent, Less than 6 Hours Per Day (ICD-10-PCS; 2017-09-29)
PROC: 0W993ZZ Drainage of Right Pleural Cavity, Percutaneous Approach (ICD-10-PCS; principal; 2017-09-30)
DX: J12.2 Parainfluenza virus pneumonia (principal); N18.6 End stage renal disease; E10.10 Type 1 diabetes mellitus with ketoacidosis without coma; J90 Pleural effusion, not elsewhere classified; I13.2 Hypertensive heart and chronic kidney disease with heart failure and with stage 5 chronic kidney disease, or end stage renal disease; E87.2 Acidosis; R18.8 Other ascites; E10.9 Type 1 diabetes mellitus without complications; D50.9 Iron deficiency anemia, unspecified; E78.5 Hyperlipidemia, unspecified; E10.311 Type 1 diabetes mellitus with unspecified diabetic retinopathy with macular edema; L65.9 Nonscarring hair loss, unspecified; Z91.19 Patient's noncompliance with other medical treatment and regimen; F32.9 Major depressive disorder, single episode, unspecified; I16.0 Hypertensive urgency; E87.70 Fluid overload, unspecified; Z79.899 Other long term (current) drug therapy; Z79.4 Long term (current) use of insulin; E87.5 Hyperkalemia; E55.9 Vitamin D deficiency, unspecified; D63.1 Anemia in chronic kidney disease; R19.7 Diarrhea, unspecified; E10.65 Type 1 diabetes mellitus with hyperglycemia; I50.9 Heart failure, unspecified

== ENCOUNTER → 2017-10-21 | Outpatient (CLI) | payer MEDICARE, BC, MEDICAID | LOC: M SMT 13:13 | DX: J90 Pleural effusion, not elsewhere classified (principal) | CPT/HCPCS: 71046 ==

== ENCOUNTER 2018-01-28 19:12 | Emergency (ER) | payer MEDICARE, BC, MEDICAID ==
[2018-01-28 20:49] LABS: VENOUS HCO3 27.7 MEQ/L (23.0-27.0); VENOUS O2 SATURATION 64.2 % (60.0-80.0); VENOUS PARTIAL PRESSURE CO2 53.2 mmHg (38.0-50.0); VENOUS PARTIAL PRESSURE O2 37.5 mmHg (30.0-50.0); VENOUS PH 7.335 UNITS (7.330-7.430); VENOUS STANDARD HCO3 24.6 MEQ/L; VENOUS TOTAL CO2 29.4 MEQ/L (24.0-28.0)
[2018-01-28 20:53] LABS: BASO % 0.4 % (0.0-1.0); EOS # 0.1 10^3/uL (0.0-0.50); EOS % 2.9 % (0.0-3.0); HEMATOCRIT 37.6 % (36.0-47.0); HEMOGLOBIN 12.5 g/dl (12.0-15.5); IMMATURE GRANULOCYTE % 0.2 % (0-3.0); LYMPH # 0.7 10^3/uL (1.5-4.5); LYMPH % 14.3 % (24.0-44.0); MEAN CORPUSCULAR HEMOGLOBIN 34.2 pg (27.0-33.0); MEAN CORPUSCULAR HGB CONC 33.2 g/dl (32.0-36.5); MONO # 0.5 10^3/uL (0.0-0.8); MONO % 10.5 % (0.0-5.0); NEUTROPHILS # 3.3 10^3/uL (1.8-7.7); NEUTROPHILS % 71.7 % (36.0-66.0); PLATELET COUNT, AUTOMATED 107 10^3/uL (150-450); RED BLOOD COUNT 3.65 10^6/uL (4.00-5.40); RED CELL DISTRIBUTION WIDTH 13.4 % (11.5-14.5); WHITE BLOOD COUNT 4.6 10^3/uL (4.0-10.0)
[2018-01-28 21:10] LABS: ANION GAP 12 MEQ/L (8-16); BLOOD UREA NITROGEN 34 MG/DL (7-18); C REACTIVE PROTEIN QUANTITATIV 0.64 MG/DL (0.00-0.30); CALCIUM LEVEL 8.1 MG/DL (8.5-10.1); CARBON DIOXIDE LEVEL 28 MEQ/L (21-32); CHLORIDE LEVEL 96 MEQ/L (98-107); CREATININE FOR GFR 3.21 MG/DL (0.55-1.30); GLOMERULAR FILTRATION RATE 16.9 (>58); GLUCOSE, FASTING 364 MG/DL (70-100); POTASSIUM SERUM 3.5 MEQ/L (3.5-5.1); SODIUM LEVEL 136 MEQ/L (136-145)
[2018-01-28 21:17] LABS: ERYTHROCYTE SEDIMENTATION RATE 16 mm/hr (0-20)
[2018-01-28 22:13] LABS: BEDSIDE GLUCOSE 268 MG/DL (70-105)
[2018-01-28] MEDS: CEPHALEXIN 500 MG CAP PO (22:23)
[2018-01-28] MEDS: DOXYCYCLINE HYCLATE 100 MG TAB PO (22:23)
[2018-01-28] MEDS: HumaLOG INSULIN (NovoLOG) PER UNIT SC (22:26)
== END 2018-01-28 22:53 | disposition home or self-care (01) ==
LOC: M ED 19:12
DX: L89.629 Pressure ulcer of left heel, unspecified stage (principal); E11.621 Type 2 diabetes mellitus with foot ulcer; E11.40 Type 2 diabetes mellitus with diabetic neuropathy, unspecified; I12.0 Hypertensive chronic kidney disease with stage 5 chronic kidney disease or end stage renal disease; G43.909 Migraine, unspecified, not intractable, without status migrainosus; N18.6 End stage renal disease; Z94.0 Kidney transplant status; Z94.83 Pancreas transplant status; Z79.899 Other long term (current) drug therapy; Z79.4 Long term (current) use of insulin
CPT/HCPCS: 82803

== ENCOUNTER 2018-02-09 20:28 | Emergency (ER) | payer MEDICARE, BC | END 2018-02-09 21:53 | disposition home or self-care (01) | LOC: M ED 20:28 | DX: T82.838A Hemorrhage due to vascular prosthetic devices, implants and grafts, initial encounter (principal); Y92.9 Unspecified place or not applicable; Y93.9 Activity, unspecified; N18.6 End stage renal disease; E11.40 Type 2 diabetes mellitus with diabetic neuropathy, unspecified; I10 Essential (primary) hypertension; Z94.0 Kidney transplant status; Z94.83 Pancreas transplant status; Z89.422 Acquired absence of other left toe(s); Z79.4 Long term (current) use of insulin; Z79.899 Other long term (current) drug therapy | CPT/HCPCS: 99283 ==

== ENCOUNTER 2018-05-09 13:19 | Inpatient (IN) | payer MEDICARE, BC ==
[~2018-05-09] VITALS: Ht 162.6 cm; Wt 70.0 kg
[~2018-05-09 13:19] MED LIST changes: +ALCOPAD17 TOP; +ASPI-222 PO; -ASPI325T28 PO; +AURY1TAB PO; +BACT400T PO; +BLOOKIT21 XX; +COLA100C5 PO; +DOXY100C37 PO; +GLUC1TES2 XX; +INSU1MIS20 SC; +INSUR SC; +IRON10VL IV; +JUVEPOW8 PO; +KEFL500C17 PO; +LANC30MI XX; +LEVE1INJ5 SC; +LEXA1TAB PO; +LOSA25TA14 PO; -LOSA25TA8 PO; +MIDO5TA PO; +PEN1MIS21 SC; +REFR0.1D OU; +VELT1POW PO; +VITA50005 PO; +ZITH500T PO; +ZOFR4TAB14 PO
[2018-05-09 15:12] LABS: BASO # 0.1 10^3/uL (0.0-0.2); BASO % 0.9 % (0.0-1.0); EOS # 0.2 10^3/uL (0.0-0.50); EOS % 2.1 % (0.0-3.0); HEMATOCRIT 32.8 % (36.0-47.0); HEMOGLOBIN 10.9 g/dl (12.0-15.5); LYMPH # 0.9 10^3/uL (1.5-4.5); LYMPH % 13.3 % (24.0-44.0); MEAN CORPUSCULAR HEMOGLOBIN 35.2 pg (27.0-33.0); MEAN CORPUSCULAR HGB CONC 33.2 g/dl (32.0-36.5); MEAN CORPUSCULAR VOLUME 105.8 fl (80.0-96.0); MONO # 0.7 10^3/uL (0.0-0.8); MONO % 9.8 % (0.0-5.0); NEUTROPHILS # 5.2 10^3/uL (1.8-7.7); NEUTROPHILS % 73.5 % (36.0-66.0); PLATELET COUNT, AUTOMATED 167 10^3/uL (150-450); WHITE BLOOD COUNT 7.1 10^3/uL (4.0-10.0)
[2018-05-09 15:22] LABS: INR 1.01; PROTHROMBIN TIME 13.4 SECONDS (12.1-14.4)
--- NOTE | 2018-05-09 15:37 | REP ---
ABDOMEN, FLAT UPRIGHT PA CHEST, FOUR VIEWS: HISTORY: Diarrhea. COMPARISON: 10/21/2017 A small amount of air is present in small and large intestine. There are no air fluid levels or dilated loops of intestine. There is no pneumoperitoneum. Surgical clips are present in the abdomen and pelvis. There is blunting of the right costophrenic angle due to a small pleural effusion unchanged compared to the previous study. The cardiac silhouette is enlarged. IMPRESSION: 1. Nonspecific bowel gas pattern. 2. Small right pleural effusion unchanged compared to the previous study. 3. Cardiomegaly. Electronically Signed by Naldo Vasquze MD 05/09/2018 03:40 P
[2018-05-09 15:46] LABS: INFLUENZA A AMPLIFICATION NEGATIVE (NEGATIVE); INFLUENZA B AMPLIFICATION NEGATIVE (NEGATIVE)
[2018-05-09 15:48] LABS: ALBUMIN 3.1 GM/DL (3.2-5.2); BILIRUBIN,DIRECT 0.2 MG/DL (0.0-0.2); BILIRUBIN,TOTAL 0.5 MG/DL (0.2-1.0); CALCIUM LEVEL 8.4 MG/DL (8.5-10.1); CREATININE FOR GFR 7.21 MG/DL (0.55-1.30); GLOMERULAR FILTRATION RATE 6.7 (>58); MAGNESIUM LEVEL 3.3 MG/DL (1.8-2.4); PHOSPHORUS LEVEL 11.8 MG/DL (2.5-4.9); POTASSIUM SERUM 6.6 MEQ/L (3.5-5.1); TOTAL PROTEIN 7.1 GM/DL (6.4-8.2)
[2018-05-09] MEDS ORDERED: CALCIUM CHLORIDE 10% 1 GM/10 ML SYR IV STA (15:57)
[2018-05-09] MEDS ORDERED: SODIUM BICARBONATE 8.4% INJ 50 ML SYRINGE IV STA (15:57)
[2018-05-09] MEDS ORDERED: HumuLIN R (REGULAR) INSULIN (NovoLIN R) **100U/ML** PER UNIT IV ONE (16:00)
[2018-05-09] MEDS ORDERED: PATIROMER SORBITEX CALCIUM 8.4 GM POWDER PACKET (VELTASSA) PO ONE (16:00)
[2018-05-09] MEDS ORDERED: RENATAB5 PO (16:31)
--- NOTE | 2018-05-09 16:52 | REP ---
CT ABDOMEN PELVIS WITHOUT CONTRAST: 05/09/2018. Clinical history: Abdominal pain, vomiting, diarrhea. Prior renal and pancreas transplants by history. Insulin dependent diabetes on dialysis. Comparison: CT 09/29/2017. Findings: CT abdomen: This noncontrast CT shows a right pleural effusion with the left lung base clear. Heart mildly prominent with no pericardial thickening or effusion. Left atrial and ventricular enlargement seen. Some calcifications in the mitral annulus. No hiatal hernia. There is hepatomegaly with a 21 cm vertical diameter of the liver. There is no focal hepatic mass nor intrahepatic biliary dilatation. There is a small amount of ascites in the upper abdomen compared to the previous study but still present around the liver and spleen. Gallbladder shows some layering calcified stones. Diffuse calcifications in branches from the aorta and renal arteries included with severe renal atrophy present. No hydronephrosis, renal mass or stone. Pancreas without mass or ductal dilatation. There is no focal splenic lesion or splenomegaly. Stomach only small amount of retained fluid. There is diastases of the rectus muscles without bowel herniation. This is unchanged. Anasarca noted with extensive edema around the subcutaneous fat of the abdomen and pelvic flanks. No perforation or free air. Small bowel loops are fluid filled but not abnormally dilated. There is fluid tracking along the lateral caudal fascia bilaterally right greater than left from the upper abdominal ascites. Colon collapsed. The presence of ascites makes evaluation of the colon for possible colitis very difficult. The small bowel loops without air fluid levels and fluid-filled raises the question of ileus. Bones show demineralization and minor facet arthritic change lower lumbar spine. No compression deformity or destructive lesion. The visualized ribs included were unremarkable. CT pelvis: Surgical clips scattered in the lower abdomen and upper/mid pelvis. There is atherosclerotic calcification in the iliac and femoral vessels. There is no ventral or inguinal hernia nor pathologic sized inguinal adenopathy. Trace amount of pelvic free fluid. There is some edema in the perirectal fat that might reflect some proctitis. The uterus not enlarged. No pelvic mass. Fluid-filled small bowel loops and bladder nearly empty with thickened wall. No pathologic sized adenopathy. Impression: 1. Enlarged liver, small amount of diffuse ascites with anasarca. Spleen not enlarged. 2. Cholelithiasis without intra or extrahepatic biliary dilatation suggested. 3. Diffuse atherosclerotic calcifications aortic branches throughout with severe renal atrophy. There are multiple surgical clips in the abdomen and pelvis. 4. Perirectal space with infiltration of fat that could reflect some proctitis in the remainder of the course of the colon. Small amount of ascites in the lateral coronal fascia adjacent makes it difficult to evaluate for colitis. There is suggested to be some ileus or gastroenteritis with fluid-filled small bowel loops. No perforation, abscess or free air. Electronically Signed by Daniel Snider MD 05/09/2018 08:50 P
[2018-05-09] MEDS ORDERED: NS 1,000 ML IV SCH (17:38)
[2018-05-09] MEDS ORDERED: ONDANSETRON 4MG/2ML VIAL (J2405) IV PRN (17:45)
[2018-05-09] MEDS ORDERED: GLUCAGON FOR INJ 1 MG VIAL (J1610) SC PRN (18:00)
[2018-05-09] MEDS ORDERED: GLUCOSE 4 GM CHEW TABLET PO PRN (18:00)
[2018-05-09] MEDS ORDERED: DEXTROSE 50% 50 ML SYRINGE IV PRN (18:00)
--- NOTE | 2018-05-09 18:32 | HPE ---
DATE OF ADMISSION: 05/09/2018 A 42-year-old female with a past medical history of end-stage renal disease, on hemodialysis Tuesday, , Tuesday. Last dialysis was last . Presents to the emergency room with generalized weakness, poor appetite, nausea, vomiting and diarrhea. This has been going on since Tuesday late morning where she had multiple episodes of nausea and vomiting, which then eventually subsided by Tuesday and was replaced with explosive diarrhea, so she missed her dialysis on Tuesday and this state of affairs continued on Tuesday, Tuesday and today, so she came to the emergency room (ER) for evaluation. In the ER, she was found to have hyperkalemic, was given insulin D50 cocktail to bring the potassium down. Dr. Myrick has been notified by the emergency department (ED), and the patient will receive her dialysis either today or tomorrow morning. She has been given intravenous (IV) Zofran, and at this point, she is not nauseous, but she still feels very weak and she does have mild subjective feeling of fever, aches and chills, and she will be admitted for further management. PAST MEDICAL HISTORY: End-stage renal disease, on hemodialysis Tuesday, , Tuesday. History of hypertension. Hyperlipidemia. Type 1 diabetes. History of diabetic retinopathy. Macular degeneration. 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 ALLERGIES: She has no known drug allergies. FAMILY HISTORY: Noncontributory. SOCIAL HISTORY: Patient denies tobacco, alcohol, or illicit drugs. MEDICATIONS: She takes at home are as follows: - Auryxia 210 mg by mouth in the morning - ergocalciferol 50,000 units orally week - escitalopram 10 mg orally daily - regular insulin sliding scale - patiromer 8.4 grams by mouth three times a week - [place] one tablet orally daily REVIEW OF SYSTEMS: Negative all ten major systems except what has been mentioned in the history of the present illness. Vital Signs: Blood pressure is 181/81, heart rate is 63, regular, respiratory rate 17, temperature is 97.3, oxygen saturation is 100% on room air. Head is atraumatic, normocephalic. Neck supple. No jugular venous distention (JVD). Lungs are clear to auscultation. S1, S2 audible, No murmurs appreciated. Abdomen: Soft, positive bowel sounds. No pedal edema. Skin: Intact. Neurologic Examination: Patient awake, alert, oriented times three. LABORATORY: WBC 7.1, hemoglobin 10.9, hematocrit 32.8, platelets are 167,000. Sodium 132, potassium 6.6, non-hemolyzed chloride 94, CO2 20, anion gap 18, BUN is 141, creatinine 7.21, glucose is 232. Influenza A and B are negative. CT of the abdomen and pelvis showed what suggests to be ileus versus gastroenteritis with fluid-filled small bowel loops and no perforation, abscess or free air. IMPRESSION: 1. Acute viral gastroenteritis. 2. Diarrhea. 3. End-stage renal disease. PLAN: Patient is to be admitted to progressive care unit (PCU). Patient will receive dialysis tomorrow by the nephrology team. Patient's fistula has positive thrill in the left upper extremity. I will hold all of her medications except Lexapro due to her nausea. I will put her on a clear liquid diet and give her IV Zofran. Will put her on insulin sliding scale as well and continue her care in the progressive care unit (PCU).
[2018-05-09] MEDS ORDERED: DEXTROSE 50% 50 ML SYRINGE IV STA (19:42)
[2018-05-09] MEDS ORDERED: HumaLOG INSULIN (NovoLOG) PER UNIT IV STA (19:42)
[2018-05-09] MEDS ORDERED: HumuLIN R (REGULAR) INSULIN (NovoLIN R) **100U/ML** PER UNIT IV STA (19:52)
[2018-05-09 21:06] LABS: CALCIUM LEVEL 8.6 MG/DL (8.5-10.1); CREATININE FOR GFR 7.3 MG/DL (0.55-1.30); GLOMERULAR FILTRATION RATE 6.6 (>58); POTASSIUM SERUM 6.4 MEQ/L (3.5-5.1)
--- NOTE | 2018-05-09 21:18 | ECGEPIP ---
Stationary ECG Study [facility] - ED Test Date: 2018-05-09 Pat Name: KAYLEE TRAN Department: Room: - Gender: F Polysomnography Technologist: julius : 1975 Requested By: Jackie Valencia Order Number: [id number] Reading MD: Jackie Valencia Measurements Intervals [place] Rate: 59 P: 11 CT: 174 QRS: 77 QRSD: 94 T: 47 QT: 470 QTc: 467 Interpretive Statements SINUS BRADYCARDIA LOW VOLTAGE LIMB NSTTW ABNORMALITY PROLONGED QTC DECREASED RATE 09/29/17 Electronically Signed On 05-09-2018 21:18:04 EDT by Jackie Valencia
[2018-05-09] MEDS: SODIUM BICARBONATE 75 MEQ in NS 0.45% 1,000 ML IV SCH (21:52)
[2018-05-09] MEDS: ESCITALOPRAM OXALATE 10 MG TAB (LEXAPRO) PO SCH (23:31)
[2018-05-10 07:10] LABS: BASO % 0.4 % (0.0-1.0); EOS % 0.1 % (0.0-3.0); HEMATOCRIT 32.2 % (36.0-47.0); HEMOGLOBIN 10.5 g/dl (12.0-15.5); LYMPH # 0.4 10^3/uL (1.5-4.5); LYMPH % 5.9 % (24.0-44.0); MEAN CORPUSCULAR HEMOGLOBIN 35.1 pg (27.0-33.0); MEAN CORPUSCULAR HGB CONC 32.6 g/dl (32.0-36.5); MEAN CORPUSCULAR VOLUME 107.7 fl (80.0-96.0); MONO # 0.5 10^3/uL (0.0-0.8); MONO % 6.5 % (0.0-5.0); NEUTROPHILS # 6.4 10^3/uL (1.8-7.7); NEUTROPHILS % 86.6 % (36.0-66.0); PLATELET COUNT, AUTOMATED 157 10^3/uL (150-450); RED BLOOD COUNT 2.99 10^6/uL (4.00-5.40); WHITE BLOOD COUNT 7.3 10^3/uL (4.0-10.0)
[2018-05-10 07:55] LABS: BILIRUBIN,TOTAL 0.7 MG/DL (0.2-1.0); CALCIUM LEVEL 8.5 MG/DL (8.5-10.1); CREATININE FOR GFR 7.44 MG/DL (0.55-1.30); GLOMERULAR FILTRATION RATE 6.4 (>58); TOTAL PROTEIN 6.6 GM/DL (6.4-8.2)
[2018-05-10 08:00] VITALS: BP 114/53
[2018-05-10] MEDS: SODIUM BICARBONATE 75 MEQ in NS 0.45% 1,000 ML IV SCH (08:24)
[2018-05-10] MEDS: HumaLOG INSULIN (NovoLOG) PER UNIT SC SCH ×3 (08:24→17:30)
[2018-05-10 13:20] VITALS: BP 128/66
--- NOTE | 2018-05-10 15:15 | IPN ---
DATE: 05/10/2018 Mrs. Nye is seen this morning during hemodialysis. She continues to have loose stools even during hemodialysis treatment. Last evening, her potassium level did improve initially to 6.4 and then we had started further sodium bicarbonate drip. This morning's laboratories have just come back at the time of my visit and her potassium level is 7.0. Her blood sugar is also quite high at 465 which probably worsened her hyperkalemia. In any event, we have already arranged for early dialysis this morning. She is already in dialysis room being dialyzed. PHYSICAL EXAMINATION: Temperature 97.8 degrees Fahrenheit, heart rate 68 per minute and respiratory rate 14 per minute. Blood pressure 150/68 mmHg and oxygen saturation 98% on room air. Her head is atraumatic. Neck is supple and jugular venous distention (JVD) is not any significantly elevated. Heart sounds are regular. Lungs with slightly diminished breath sounds at bases. Abdomen is soft and bowel sounds are hyperactive. Extremities without any cyanosis or clubbing. Neurologically, she is at her baseline mentation. LABORATORY DATA: Today's laboratories show sodium 128, potassium 7.0, CO2 13, BUN 144 and creatinine 7.44. Glucose 465 and calcium 8.5. PROBLEMS: 1. Hyperkalemia, worsened due to worsening metabolic acidosis despite IV sodium bicarbonate drip. She is being dialyzed with 1.0 mEq potassium bath which is likely to correct her hyperkalemia. Her chemistry will be repeated again this afternoon. 2. Metabolic acidosis. The patient has worsening metabolic acidosis despite sodium bicarbonate drip. She is being dialyzed which will help to correct her acidosis and we will recheck her chemistry later this afternoon. 3. End-stage renal disease. The patient has been noncompliant with dialysis treatments and missed her dialysis on Tuesday. She is being dialyzed today. We will recheck her chemistry later this afternoon and again tomorrow morning. We will make a decision for further dialysis depending upon her laboratory work.
--- NOTE | 2018-05-10 15:37 | CR ---
DATE OF CONSULTATION: 05/09/2018 CONSULTATION REPORT FOR: Loida Hendrickson DO REASON FOR CONSULTATION: Hyperkalemia and end-stage renal disease. HISTORY OF PRESENT ILLNESS: Mrs. Nye is a 42-year-old female with complicated medical problems including history of longstanding poorly controlled diabetes, hypertension, end-stage renal disease, status post a failed kidney pancreas transplant and back on dialysis, history of hyperlipidemia and history of cardiac arrest following her transplant. She was brought to the emergency room yesterday with history of diarrhea for two days and missed dialysis treatment as a result. She was found to be hyperkalemic with potassium level 6.6 and a nephrology consultation was requested by the emergency room (ER) physician. I did discuss about treatment of her hyperkalemia and IV fluids. PAST MEDICAL AND SURGICAL HISTORY: Significant for: 1. Longstanding type 1 diabetes. 2. Hypertension. 3. End-stage renal disease, secondary to diabetic nephropathy. 4. History of chronic hyperkalemia due to noncompliance with dietary restrictions. 5. History of congestive heart failure and chronic hypervolemia, again due to noncompliance with dietary and fluid restrictions. 6. Anemia of chronic kidney disease. 7. History of diabetic retinopathy. 8. History of failed pancreas and kidney transplant. 9. History of cardiac arrest following kidney and pancreas transplant. 10. History of secondary hyperparathyroidism. MEDICATIONS: Her home medications include Auryxia, vitamin D, escitalopram, insulin, Veltassa, and [place]. ALLERGIES: She has no known drug allergies. FAMILY HISTORY: Negative for end-stage renal disease. PERSONAL AND SOCIAL HISTORY: The patient is and lives with her . No history of alcohol or drug use. She denies any tobacco. REVIEW OF SYSTEMS: The patient denies any fever or chills. She has diarrhea for about three days. She has chronic gastrointestinal (GI) symptoms with nausea and occasional vomiting. Head and neck is negative for any sinus problems or sore throat. Cardiovascular system is significant for chronic hypervolemia and generalized edema. Respiratory system is negative for hemoptysis or pleuritic-type of chest pain. GI system is significant for recurrent diarrhea. Genitourinary () system is negative for dysuria or hematuria. Musculoskeletal system is significant for weakness of lower extremities and chronic edema. Psychosocial system is significant for depression and noncompliance. Endocrine system is significant for secondary hyperparathyroidism and type 1 diabetes. Neurological system is significant for some neurological deficit following cardiac arrest. Skin is negative for rash or ulcers. PHYSICAL EXAMINATION: Temperature 97.5 degrees Fahrenheit, heart rate 60 per minute and respiratory rate 14 per minute. Blood pressure 149/67 mmHg and oxygen saturation 96% on room air. Head is atraumatic. Neck veins mildly distended. No oral thrush or ulcers noted. Heart sounds regular. Lungs with few basilar rales and diminished breath sounds. Abdomen is soft and bowel sounds normal. Extremities without any cyanosis or clubbing. Generalized edema on lower extremities is noticed. Neurologically, she is at her baseline mentation. LABORATORY DATA: Her laboratories in the emergency room show a WBC count 7.1, hemoglobin 10.9 and hematocrit 32.8. Platelets 167. Sodium 132, potassium 6.6, CO2 20, anion gap 18, BUN 141 and creatinine 7.21. Glucose 232 and calcium 8.4. Phosphorus level was 11.8 and albumin 3.1. PROBLEMS: 1. Hyperkalemia related to end-stage renal disease, missed dialysis treatments and noncompliance with dietary restrictions. We will treat hyperkalemia with insulin, D50 and Veltassa. We will also start her on sodium bicarbonate drip. She has ongoing diarrhea and probably has some metabolic acidosis as a result of diarrhea and end-stage renal disease. Her electrolytes will be repeated again in a few hours. 2. End-stage renal disease. The patient has missed one dialysis treatment. We are going to try to arrange dialysis biomedical scientist. If her hyperkalemia gets worse then of course she can be dialyzed through the night. 3. Metabolic acidosis. She does have mild metabolic acidosis related to diarrhea and end-stage renal disease. I am going to start sodium bicarbonate drip 100 mL an hour. Once we dialyze her then we can stop her IV fluid. 4. Anemia. Her anemia is stable at this point and does not need any urgent intervention. Thank you for involving me in the care of Mrs. Nye. I will follow her along with you.
[2018-05-10 16:00] VITALS: BP 152/64
[2018-05-10 16:53] LABS: ACETONE/KETONE 15.7 MG/DL (<2.81); ALBUMIN 2.8 GM/DL (3.2-5.2); BILIRUBIN,DIRECT 0.2 MG/DL (0.0-0.2); BILIRUBIN,TOTAL 0.6 MG/DL (0.2-1.0); CREATININE FOR GFR 3.79 MG/DL (0.55-1.30); POTASSIUM SERUM 3.7 MEQ/L (3.5-5.1); TOTAL PROTEIN 5.9 GM/DL (6.4-8.2)
[2018-05-10 20:00] VITALS: BP 117/56
--- NOTE | 2018-05-10 20:00 | IPN ---
DATE: 05/10/2018 SUBJECTIVE: Patient is seen and examined during dialysis. Patient started to have continuous loose stool. Patient only answers a few questions today during encounter. Denies any distress. OBJECTIVE: VITAL SIGNS: Temperature is 97.5, pulse 75, respiratory rate 18, blood pressure (BP) is 114/53, pulse oximetry 99% in room air. GENERAL: Patient is alert and awake. HEENT: Normocephalic, atraumatic. Alopecia noted. CARDIOVASCULAR: Positive S1, S2, regular rate. LUNGS: Clear to auscultation bilaterally. ABDOMEN: Soft, nondistended. Hyperactive bowel sounds. Some redness noted of the bilateral feet. No tenderness to palpation. No lower extremity swelling noted. LABORATORY DATA: WBC 7.3, hemoglobin 10.5, hematocrit 32.2, platelet count is 157. Sodium is 128, potassium 7, chloride 91, carbon dioxide 13, BUN is 144, creatinine 7.44, GFR is 6.4, fasting glucose is 465, calcium 8.5. Total bilirubin 0.7, AST is 55, ALT is 142, alkaline phosphatase is 112, total protein 6.6. ASSESSMENT AND PLAN: 1. Anion gap metabolic acidosis. This morning patient had a gap of 24. Patient does have uremia. Patient is receiving hemodialysis today. Will followup with ketone level. Continue on the insulin. 2. End-stage renal disease, on dialysis. Nephrology is consulted. Patient is receiving hemodialysis today. Due to the gastrointestinal (GI) symptoms, patient missed dialysis prior to admission. 3. Diarrhea. Gastrointestinal (GI) panel is negative. Patient denies any recent medication change. Denied any new lifestyle modifications. Patient could not recall significant sick contact. CT abdomen and pelvis without contrast demonstrated perirectal space with infiltrate of fat. Could reflect some proctitis. A small amount of ascites in the lateral coronal fascia adjacent, making it difficult to evaluate for colitis. There are some findings suggestive of ileus or gastroenteritis. Will continue to look for possible cause of the frequent bowel movements. 4. Severe hyperkalemia. This morning patient had a potassium of 7. Patient receiving hemodialysis. 5. Type 1 diabetes. Continue insulin and liquid diet. 6. Hypertension. Blood pressure in the satisfactory range. Patient is not currently on hypertensive medications. 7. History of macular degeneration. 8. History of cardiac arrest after failed attempt at kidney and pancreatic transplant in 2017. 9. Deep vein thrombosis (DVT) prophylaxis, on heparin.
[2018-05-10] MEDS: ESCITALOPRAM OXALATE 10 MG TAB (LEXAPRO) PO SCH (21:34)
[2018-05-10] MEDS: HEPARIN SOD (PORCINE) 5000 UNITS/ML VIAL SQ SCH (21:35)
[2018-05-10 23:59] VITALS: BP 111/53
[2018-05-11] VITALS (10 sets, daily range): BP systolic 115–178; BP diastolic 54–74
[2018-05-11] MEDS: HEPARIN SOD (PORCINE) 5000 UNITS/ML VIAL SQ SCH ×2 (05:25→15:25)
[2018-05-11 05:41] LABS: HEMATOCRIT 32.6 % (36.0-47.0); HEMOGLOBIN 10.2 g/dl (12.0-15.5); MEAN CORPUSCULAR HEMOGLOBIN 34.9 pg (27.0-33.0); MEAN CORPUSCULAR HGB CONC 31.3 g/dl (32.0-36.5); MEAN CORPUSCULAR VOLUME 111.6 fl (80.0-96.0); PLATELET COUNT, AUTOMATED 164 10^3/uL (150-450); RED BLOOD COUNT 2.92 10^6/uL (4.00-5.40); WHITE BLOOD COUNT 7.4 10^3/uL (4.0-10.0)
[2018-05-11 06:37] LABS: ACETONE/KETONE > 46.00 MG/DL (<2.81); ALBUMIN 2.7 GM/DL (3.2-5.2); ALT/SGPT 114 U/L (12-78); BILIRUBIN,TOTAL 0.8 MG/DL (0.2-1.0); BLOOD UREA NITROGEN 61 MG/DL (7-18); CALCIUM LEVEL 8.1 MG/DL (8.5-10.1); CARBON DIOXIDE LEVEL 11 MEQ/L (21-32); CHLORIDE LEVEL 94 MEQ/L (98-107); GLOMERULAR FILTRATION RATE 11.8 (>58); GLUCOSE, FASTING 510 MG/DL (70-100); MAGNESIUM LEVEL 2.9 MG/DL (1.8-2.4); PHOSPHORUS LEVEL 8.1 MG/DL (2.5-4.9); POTASSIUM SERUM 5.1 MEQ/L (3.5-5.1); SODIUM LEVEL 132 MEQ/L (136-145); TOTAL PROTEIN 6.2 GM/DL (6.4-8.2)
[2018-05-11] MEDS ORDERED: HumaLOG INSULIN (NovoLOG) PER UNIT SC STA (06:50)
[2018-05-11 08:50] LABS: ABG HCO3 8.3 MEQ/L (22.0-26.0)
[2018-05-11 08:53] LABS: ABG PARTIAL PRESSURE CO2 22.2 mmHg (35.0-45.0); ABG PARTIAL PRESSURE O2 111.1 mmHg (75.0-100.0); ABG STANDARD HCO3 10.8 MEQ/L (22.0-26.0)
[2018-05-11 08:56] LABS: ABG pH (ARTERIAL) 7.193 UNITS (7.350-7.450)
[2018-05-11] MEDS ORDERED: INSULIN HUMAN REGULAR 100 UNITS in NS 99 ML IV SCH (09:00)
[2018-05-11] MEDS ORDERED: SODIUM BICARBONATE 150 MEQ in STERILE WATER LITER BAG 1,000 ML IV SCH (09:00)
[2018-05-11 10:39] LABS: HEMOGLOBIN A1c 9.2 %
[2018-05-11 10:57] LABS: CALCIUM LEVEL 8.2 MG/DL (8.5-10.1); CREATININE FOR GFR 4.6 MG/DL (0.55-1.30); GLOMERULAR FILTRATION RATE 11.2 (>58); MB/CK RELATIVE INDEX 11.6 (< OR =4); POTASSIUM SERUM 4.2 MEQ/L (3.5-5.1); TROPONIN I 0.21 NG/ML (< 0.10)
[2018-05-11 11:09] LABS: CALCIUM LEVEL 8.1 MG/DL (8.5-10.1); CREATININE FOR GFR 4.71 MG/DL (0.55-1.30); GLOMERULAR FILTRATION RATE 10.9 (>58); POTASSIUM SERUM 4.2 MEQ/L (3.5-5.1)
[2018-05-11] MEDS ORDERED: PERCOCET 5MG/325MG TAB PO PRN (11:15)
[2018-05-11] MEDS ORDERED: HEPARIN 1,000 UNITS/ML 10ML VIAL (FOR RADIOLOGY& DIALYSIS ONLY) IV ONE (11:45)
[2018-05-11] MEDS: INSULIN IV RATE CHANGE DOCUMENTATION ML/HR XX SCH ×2 (11:47→13:58)
[2018-05-11 12:29] LABS: CALCIUM LEVEL 8.1 MG/DL (8.5-10.1); CREATININE FOR GFR 4.75 MG/DL (0.55-1.30); GLOMERULAR FILTRATION RATE 10.8 (>58)
--- NOTE | 2018-05-11 12:44 | IPN ---
DATE OF VISIT: 05/11/2018 Mrs. Nye is seen this morning in intensive care unit. She was found to have diabetic ketoacidosis and has been transferred to intensive care unit this morning. She continues to have loose stools and complains of painful hemorrhoids. She denies any dyspnea or chest pain. She has no fever or chills. On physical exam, temperature 97.9 degrees Fahrenheit, heart rate 85 per minute and respiratory rate 18 per minute. Blood pressure 145/60 mmHg and oxygen saturation 97% on 2 liters oxygen. Head is atraumatic. Neck is supple and jugular venous distention (JVD) difficult to be assessed. Heart sounds are regular and lungs clear to auscultation. Abdomen soft and bowel sounds are hyperactive. Extremities have chronic stasis with some erythematous change. Left arm arteriovenous (AV) fistula is patent. Neurologically, she is awake and at her baseline mentation. Today's labs show a blood gas with pH of 7.19, pCO2 22, pO2 111 and bicarbonate 10.8. Sodium is 135, potassium 4.2, CO2 10, BUN 65 and creatinine 4.71. Glucose 413. Her beta hydroxybutyrate was 15.7 yesterday and went up to greater than 46 today. PROBLEMS: 1. Diabetic ketoacidosis. Patient has been transferred to intensive care unit. I am going to start with IV sodium bicarbonate drip in view of her severe acidosis and ongoing diarrhea in addition to diabetic ketoacidosis. She is also being started on her on insulin drip per hospitalist orders. 2. End-stage renal disease. Patient was dialyzed yesterday and she tolerated her dialysis treatment very well. We will plan to dialyze her again today in view of her missed dialysis earlier in the week and worsening acidosis. 3. Severe metabolic acidosis. This is related to diabetic ketoacidosis in the setting of end-stage renal disease and ongoing diarrhea. She is being started on IV heparin drip and I will also dialyze her today. Her chemistry should be checked again in a few hours. Once her acidosis is corrected, then bicarbonate drip can be tapered. 4. Diarrhea. She continues to have loose stools and I will defer to hospitalist service for consideration of infectious disease or a GI consultation.
[2018-05-11 13:16] LABS: OSMOLALITY SERUM 325 MOSM/KG (275-295)
[2018-05-11 14:30] LABS: CALCIUM LEVEL 7.9 MG/DL (8.5-10.1); CREATININE FOR GFR 3.34 MG/DL (0.55-1.30); GLOMERULAR FILTRATION RATE 16.2 (>58); MB/CK RELATIVE INDEX 10.25 (< OR =4); POTASSIUM SERUM 3.4 MEQ/L (3.5-5.1); TROPONIN I 2.79 NG/ML (< 0.10)
[2018-05-11] MEDS ORDERED: D5W/0.9% SODIUM CHLORIDE 1,000 ML IV SCH (14:45)
[2018-05-11] MEDS ORDERED: ASPIRIN 325 MG TAB PO ONE (15:00)
[2018-05-11] MEDS ORDERED: ATORVASTATIN 20 MG TAB PO ONE (15:00)
--- NOTE | 2018-05-11 15:27 | ECGEPIP ---
Stationary ECG Study [facility] Test Date: 2018-05-11 Pat Name: KAYLEE TRAN Department: Room: [place] [address] Gender: F Lead Customer Service Representative: GENET : 1975 Requested By: PRANAV EDWARDS Order Number: [id number] Reading MD: Bandar Osei Measurements Intervals [place] Rate: 65 P: 34 ND: 154 QRS: 44 QRSD: 96 T: 155 QT: 464 QTc: 484 Interpretive Statements Normal sinus rhythm Low QRS complex voltage in the limb leads Incomplete right bundle branch block Nonspecific ST-T wave abnormalities QT prolongation No significant change when compared to prior tracing of 05/09/2018 Electronically Signed On 05-11-2018 15:27:12 EDT by Bandar Osei
[2018-05-11] MEDS ORDERED: SODIUM BICARBONATE 150 MEQ in D5W 1,000 ML IV SCH (16:00)
[2018-05-11 16:21] LABS: CALCIUM LEVEL 7.7 MG/DL (8.5-10.1); CREATININE FOR GFR 1.98 MG/DL (0.55-1.30); GLOMERULAR FILTRATION RATE 29.6 (>58); MB/CK RELATIVE INDEX 9.5 (< OR =4); POTASSIUM SERUM 2.9 MEQ/L (3.5-5.1); TROPONIN I 3.86 NG/ML (< 0.10)
[2018-05-11] MEDS ORDERED: CLOPIDOGREL 300 MG TAB (PLAVIX) PO STA (16:43)
[2018-05-11] MEDS ORDERED: HEPARIN DRIP 25,000 UNITS in APPROPRIATE DILUENT 1 EA IV SCH (16:44)
[2018-05-11] MEDS ORDERED: HEPARIN SOD (PORCINE) 5000 UNITS/ML VIAL IV PRN (16:45)
[2018-05-11] MEDS ORDERED: KCL 10MEQ IN STERILE WATER 100ML As Ordered ONE (16:58)
[2018-05-11] MEDS ORDERED: KCL 10MEQ/100ML SWI (KRUN) 10 MEQ in APPROPRIATE DILUENT 1 EA IV SCH (17:00)
[2018-05-11] MEDS ORDERED: LEVEMIR (INSULIN DETEMIR) 1 UNITS/0.01ML SC ONE (17:15)
[2018-05-11] MEDS ORDERED: KCL 10MEQ/100ML SWI (KRUN) 10 MEQ in APPROPRIATE DILUENT 1 EA IV ONE (17:30)
--- NOTE | 2018-05-11 18:26 | DSES ---
DATE OF ADMISSION: 05/10/2018 DATE OF TRANSFER: 05/11/2018 ASSISTING FACILITY: [facility]. CONSULTANTS: Nephrology and cardiology. DISCHARGE DIAGNOSIS: 1. Acute CO (myocardial infarction). 2. BKA (below knee amputation). 3. Severe anion gap metabolic acidosis. Patient has renal disease on dialysis. 4. Type 1 diabetes. 5. Hypertension. 6. History of macular degeneration. 7. History of cardiac arrest after a failed attempt at kidney and pancreatic transplant in 2017 in [place]. HOSPITALIZATION COURSE: The patient is a 42-year-old female who started having severe nausea and vomiting and diarrhea on 05/05/2018. Subsequently the patient missed hemodialysis. Patient continued to have worsening weakness, nausea, vomiting and diarrhea. Patient came to [facility] for further evaluation. During initial workup. Patient was found to have severe hyperkalemia and uremia. Nephrology was contacted for dialysis. GI panel and imaging studies were performed. Patient electrolyte abnormalities and acidosis show improvement after dialysis however, patient was found to have DKA. Patient was transferred to ICU initially on the insulin drip. Further workup was performed and patient started to demonstrate worsening of troponin, cardiology was contacted. Patient had a repeat sessions of dialysis. Later demonstrated the closure of anion gap. Insulin regimen adjusted. IV fluids being adjusted with nephrology. Due to the acute CO the patient was started on aspirin, Plavix and a Heparin drip. [facility] was contacted and transfer process initiated. Most recent vital signs show temperature 97.9, pulse 65, respirations 17, blood pressure 178/74, pulse ox 100% with 2 liters nasal cannula. Most recent laboratory data showed a WBC 7.4, hemoglobin 10.2, hematocrit 32.6, platelet count 164, sodium 140, potassium 2.9, carbon dioxide 30, BUN 21, creatinine 1.98, GFR 29.6, fasting glucose 107, calcium 7.7, troponin I 3.86. MICROBIOLOGY: GI panel shows negative results. IMAGING STUDIES: A chest x-ray showed nonspecific bowel gas pattern. Small right pleural effusion. Cardiomegaly. CT abdomen and pelvis without contrast demonstrated an enlarged liver, small amount of diffuse ascites with anasarca. Spleen not enlarged. Cholelithiasis without intra or extrahepatic biliary dilatation. Diffuse atherosclerotic calcification aortic branches throughout with severe renal atrophy. Perirectal space with infiltration of the fat. That could reflect some proctitis in the remainder of the course of the colon. Small amount of ascites in the lateral coronal fascia adjacent makes it difficult to evaluate for colitis. No perforation, abscess or free air. DISCHARGE INSTRUCTIONS: Patient will be transferred to [facility] for acute CO. Continue heparin drip. DISCHARGE TIME INCLUDING TRANSFER: Greater than 30 minutes. DISCHARGE CONDITION: Guarded.
[2018-05-11 19:51] LABS: ACETONE/KETONE > 46.00 MG/DL (<2.81)
== END 2018-05-11 18:44 | disposition short-term general hospital (02) | DRG 391 ==
LOC: M ED 13:19 → M ED INP 17:38 → M PCU 05-10 13:20 → OBSVTOIN 05-10 18:57 → M ICU 05-11 08:37
PROVIDERS: ADMIT Internal Medicine; ATTEND Internal Medicine
PROC: 5A1D70Z Performance of Urinary Filtration, Intermittent, Less than 6 Hours Per Day (ICD-10-PCS; principal; 2018-05-10)
DX: A08.4 Viral intestinal infection, unspecified (principal); N18.6 End stage renal disease; E10.11 Type 1 diabetes mellitus with ketoacidosis with coma; I21.4 Non-ST elevation (NSTEMI) myocardial infarction; I12.0 Hypertensive chronic kidney disease with stage 5 chronic kidney disease or end stage renal disease; N25.81 Secondary hyperparathyroidism of renal origin; T86.12 Kidney transplant failure; T86.891 Other transplanted tissue failure; E87.5 Hyperkalemia; E10.21 Type 1 diabetes mellitus with diabetic nephropathy; E10.65 Type 1 diabetes mellitus with hyperglycemia; E78.5 Hyperlipidemia, unspecified; F32.9 Major depressive disorder, single episode, unspecified; E10.22 Type 1 diabetes mellitus with diabetic chronic kidney disease; D63.1 Anemia in chronic kidney disease; H35.30 Unspecified macular degeneration; E10.319 Type 1 diabetes mellitus with unspecified diabetic retinopathy without macular edema; Z99.2 Dependence on renal dialysis; Z86.74 Personal history of sudden cardiac arrest; Z79.4 Long term (current) use of insulin; Z79.899 Other long term (current) drug therapy; Z91.15 Patient's noncompliance with renal dialysis; Z91.11 Patient's noncompliance with dietary regimen

== ENCOUNTER 2018-06-20 17:26 | Emergency (ER) | payer MEDICARE, BC ==
[~2018-06-20] VITALS: Ht 162.6 cm; Wt 73.7 kg
[~2018-06-20 17:26] MED LIST changes: +IRON100V IV; -IRON10VL IV; +RENATAB5 PO
[2018-06-20 18:25] LABS: BASO % 0.7 % (0.0-1.0); EOS # 0.1 10^3/uL (0.0-0.50); EOS % 2.9 % (0.0-3.0); HEMATOCRIT 34.1 % (36.0-47.0); HEMOGLOBIN 11.2 g/dl (12.0-15.5); LYMPH # 0.7 10^3/uL (1.5-4.5); LYMPH % 14.6 % (24.0-44.0); MEAN CORPUSCULAR HEMOGLOBIN 34.8 pg (27.0-33.0); MEAN CORPUSCULAR HGB CONC 32.8 g/dl (32.0-36.5); MEAN CORPUSCULAR VOLUME 105.9 fl (80.0-96.0); MONO # 0.5 10^3/uL (0.0-0.8); MONO % 11.9 % (0.0-5.0); NEUTROPHILS # 3.1 10^3/uL (1.8-7.7); NEUTROPHILS % 69.7 % (36.0-66.0); PLATELET COUNT, AUTOMATED 181 10^3/uL (150-450); RED BLOOD COUNT 3.22 10^6/uL (4.00-5.40); WHITE BLOOD COUNT 4.4 10^3/uL (4.0-10.0)
[2018-06-20 18:39] LABS: INR 1.05; PARTIAL THROMBOPLASTIN TIME 24.4 SECONDS (25.4-37.6); PROTHROMBIN TIME 13.8 SECONDS (12.1-14.4)
[2018-06-20 18:45] VITALS: BP 175/65
[2018-06-20 18:49] LABS: ALBUMIN 2.8 GM/DL (3.2-5.2); BILIRUBIN,DIRECT 0.2 MG/DL (0.0-0.2); BILIRUBIN,TOTAL 0.6 MG/DL (0.2-1.0); CALCIUM LEVEL 8.2 MG/DL (8.5-10.1); CREATININE FOR GFR 2.52 MG/DL (0.55-1.30); FREE T4 0.92 NG/DL (0.76-1.46); GLOMERULAR FILTRATION RATE 22.4 (>58); MB/CK RELATIVE INDEX 10.67 (< OR =4); POTASSIUM SERUM 3.3 MEQ/L (3.5-5.1); THYROID STIMULATING HORMONE 2.73 uIU/ML (0.358-3.740); TOTAL PROTEIN 6.7 GM/DL (6.4-8.2); TROPONIN I 0.14 NG/ML (< 0.10)
--- NOTE | 2018-06-20 23:26 | ECGEPIP ---
Stationary ECG Study [facility] - ED Test Date: 2018-06-20 Pat Name: KAYLEE TRAN Department: Room: - Gender: F Lumber Carrier: : 1975 Requested By: Katelynn Valencia Order Number: [id number] Reading MD: Darryl Reed Measurements Intervals [place] Rate: 68 P: 16 NE: 162 QRS: 10 QRSD: 87 T: 70 QT: 400 QTc: 428 Interpretive Statements SINUS RHYTHM INCOMPLETE RIGHT BUNDLE BRANCH BLOCK NONSPECIFIC T-WAVE ABNORMALITY SIMILAR TO 05/11/18 Electronically Signed On 06-20-2018 23:26:32 EDT by Darryl Reed
== END 2018-06-20 19:30 | disposition home or self-care (01) ==
LOC: EDBD 17:26 → M ED 17:26
DX: R58 Hemorrhage, not elsewhere classified (principal); E10.9 Type 1 diabetes mellitus without complications; N18.6 End stage renal disease; I25.10 Atherosclerotic heart disease of native coronary artery without angina pectoris; F33.9 Major depressive disorder, recurrent, unspecified; F41.9 Anxiety disorder, unspecified; I25.2 Old myocardial infarction; Z99.2 Dependence on renal dialysis; Z79.899 Other long term (current) drug therapy; Z79.4 Long term (current) use of insulin

== ENCOUNTER 2018-06-29 18:02 | Inpatient (IN) | payer MEDICARE, BC ==
[~2018-06-29] VITALS: Ht 162.6 cm; Wt 66.6 kg
[2018-06-29 18:57] LABS: BASO % 0.3 % (0.0-1.0); EOS # 0.1 10^3/uL (0.0-0.50); EOS % 1.7 % (0.0-3.0); HEMATOCRIT 34.1 % (36.0-47.0); LYMPH # 0.4 10^3/uL (1.5-4.5); LYMPH % 5.3 % (24.0-44.0); MEAN CORPUSCULAR HEMOGLOBIN 35.4 pg (27.0-33.0); MEAN CORPUSCULAR HGB CONC 32.3 g/dl (32.0-36.5); MEAN CORPUSCULAR VOLUME 109.6 fl (80.0-96.0); MONO # 0.7 10^3/uL (0.0-0.8); MONO % 9.5 % (0.0-5.0); NEUTROPHILS # 5.9 10^3/uL (1.8-7.7); NEUTROPHILS % 82.8 % (36.0-66.0); PLATELET COUNT, AUTOMATED 145 10^3/uL (150-450); RED BLOOD COUNT 3.11 10^6/uL (4.00-5.40); WHITE BLOOD COUNT 7.2 10^3/uL (4.0-10.0)
[2018-06-29 19:34] LABS: ALBUMIN 2.7 GM/DL (3.2-5.2); BILIRUBIN,DIRECT 0.2 MG/DL (0.0-0.2); BILIRUBIN,TOTAL 0.9 MG/DL (0.2-1.0); C REACTIVE PROTEIN QUANTITATIV 14.4 MG/DL (0.00-0.30); CALCIUM LEVEL 8.1 MG/DL (8.5-10.1); CREATININE FOR GFR 2.13 MG/DL (0.55-1.30); GLOMERULAR FILTRATION RATE 27.2 (>58); POTASSIUM SERUM 4.1 MEQ/L (3.5-5.1); TOTAL PROTEIN 6.3 GM/DL (6.4-8.2)
[2018-06-29] MEDS ORDERED: ONDANSETRON 4MG/2ML VIAL (J2405) IV ONE (20:15)
[2018-06-29] MEDS ORDERED: MORPHINE 4 MG/ML 1ML VIAL/SYRINGE (J2270) IV ONE (20:15)
--- NOTE | 2018-06-29 20:18 | REP ---
HISTORY: Pyrexia. COMPARISON: Multiple, the latest 05/09/2018. There is a patchy right basilar opacity with right-sided costophrenic angle and cardiophrenic angle blunting. There is cardiomegaly accentuated by technique. The technique utilized in obtaining the radiograph has magnified the cardiac silhouette and accentuated the interstitial markings. The left lung is clear and stable. There is no change in the osseous structures. IMPRESSION: Right lower lobe opacity, pneumonia/atelectasis/effusion. Correlate clinically with appropriate followup. Consider PA and lateral views of the chest rather than AP. Electronically Signed by Elvis Pfeiffer DO 06/30/2018 04:37 P
--- NOTE | 2018-06-29 21:00 | REPVR ---
EXAM: US Duplex Left Upper Extremity Veins, Limited EXAM DATE/TIME: 06/29/2018 7:42 PM CLINICAL HISTORY: 42 years old, female; Signs and symptoms; Edema, localized; Upper extremity, left; Additional info: L arm pain/swelling TECHNIQUE: Imaging protocol: Real-time Duplex ultrasound of the Left Upper Extremity with 2-D moreau scale, color Doppler flow and spectral waveform analysis. Limited exam focused on the left upper extremity veins. COMPARISON: No relevant prior studies available. FINDINGS: Left deep veins: Internal jugular, subclavian, axillary and brachial veins patent without thrombus. Normal compressibility, augmentation response and/or Doppler waveforms. Left superficial veins: Visualized cephalic and basilic veins patent without thrombus. Soft tissues: Moderate subcutaneous edema. Other findings: Patent cephalic vein to brachial artery dialysis graft with approximately 50% narrowing and increased velocity at the arterial anastomosis, suggesting hemodynamically significant stenosis. IMPRESSION: 1. No sonographic evidence of deep venous thrombosis. 2. Patent cephalic vein to brachial artery dialysis graft with approximately 50% narrowing and increased velocity at the arterial anastomosis, suggesting hemodynamically significant stenosis. Consider fistulogram for further evaluation, if clinically indicated. Electronically signed by: Arsenio Alva On 06/29/2018 21:00:02 PM
[2018-06-29] MEDS ORDERED: ceFAZolin SOD 1 GM in D5W MINI-BAG PLUS 50 ML IV ONE (21:30)
[2018-06-29] MEDS ORDERED: ACETAMINOPHEN TAB 650MG DOSE (2X325MG) PO PRN (22:00)
[2018-06-29] MEDS ORDERED: VANCOMYCIN HCL 1,000 MG, VIAL MATE ADAPTER 1 EACH in D5W 250 ML IV SCH (22:00)
[2018-06-29 22:07] LABS: ERYTHROCYTE SEDIMENTATION RATE 58 mm/hr (0-20)
[2018-06-29] MEDS ORDERED: GLUCAGON FOR INJ 1 MG VIAL (J1610) SC PRN (22:15)
[2018-06-29] MEDS ORDERED: DEXTROSE 50% 50 ML SYRINGE IV PRN (22:15)
[2018-06-29] MEDS ORDERED: GLUCOSE 4 GM CHEW TABLET PO PRN (22:15)
[2018-06-29] MEDS: ESCITALOPRAM OXALATE 10 MG TAB (LEXAPRO) PO SCH (22:22)
[2018-06-29] MEDS: HumaLOG INSULIN (NovoLOG) PER UNIT SC SCH (22:25)
[2018-06-29 23:10] LABS: VANCOMYCIN RANDOM 25.8 UG/ML
[2018-06-30 00:10] VITALS: BP 178/74
[2018-06-30] MEDS: PERCOCET 5MG/325MG TAB PO PRN ×2 (01:36→21:04)
[2018-06-30] MEDS: PIPERACILLIN/TAZOBACTAM SOD 2.25 GM in D5W MINI-BAG PLUS 50 ML IV SCH ×2 (02:11→12:06)
[2018-06-30 02:15] VITALS: BP 118/54
[2018-06-30] MEDS ORDERED: VANCOMYCIN HCL 1,000 MG, VIAL MATE ADAPTER 1 EACH in D5W 250 ML IV SCH (05:15)
--- NOTE | 2018-06-30 05:41 | PHACANCOPD ---
PHARMACY VANCOMYCIN DOSING Pt Demographics Demographics Patient Age:42 , Weight:66.600 , Gender: female Adjusted Body Weight Date: 06/30/18, Adjusted Body Weight: Kg Events Past 24 Hours Events Past 24 Hours: YES: Dialysis Vancomycin Vancomycin indication: CELLULITIS LEFT UPPER EXTR Vancomycin Target Ranges: 15-20 mcg/ml Vancomycin Load Y/N: No Load Dose Date Time Vancomycin Load Dose: Date: Time: Vancomycin Dose Date: 06/30/18. Current Vancomycin Dose: [1 GM HD] Intermittent Dosing?: Yes Labs Labs Laboratory Tests 06/29/18 18:48 Red Blood Count 3.11 L, Mean Corpuscular Volume 109.6 H, Mean Corpuscular Hemoglobin 35.4 H, Mean Corpuscular Hemoglobin Concent 32.3, Red Cell Distribution Width 14.7 H, Neutrophils (%) (Auto) 82.8 H, Lymphocytes (%) (Auto) 5.3 L, Monocytes (%) (Auto) 9.5 H, Eosinophils (%) (Auto) 1.7, Basophils (%) (Auto) 0.3, Neutrophils # (Auto) 5.9, Lymphocytes # (Auto) 0.4 L, Monocytes # (Auto) 0.7, Eosinophils # (Auto) 0.1, Basophils # (Auto) 0.0 Micro Microbiology 06/29/18 Blood Culture, Received Pending 06/29/18 Blood Culture, Received Pending Creatinine Clearance Date:06/30/18. Creatinine Clearance: [36.2].CALCULATED Assessment and Plan Maintaining Current Dose?: Yes Reason for dose change: No Dose Change Pharmacist Note Pharmacist Note Date: 06/30/18. Pharmacist note:42 YOF,dialysis 3xwkly(,,)Presented w/increasing pruritis/rash/cellulitis.Vancomycin 1 Gm after dialysis 06/29.Random level @18;48=25.8.Patient to receive Pip/Tazo 2.25 gm [id number] and intermittent Vancomycin dosing on dialysis days.-will continue to follow [facility] June 30, 2018 05:41
[2018-06-30 05:46] LABS: HEMATOCRIT 34.7 % (36.0-47.0); HEMOGLOBIN 10.7 g/dl (12.0-15.5); MEAN CORPUSCULAR HEMOGLOBIN 35.1 pg (27.0-33.0); MEAN CORPUSCULAR HGB CONC 30.8 g/dl (32.0-36.5); MEAN CORPUSCULAR VOLUME 113.8 fl (80.0-96.0); PLATELET COUNT, AUTOMATED 153 10^3/uL (150-450); RED BLOOD COUNT 3.05 10^6/uL (4.00-5.40); WHITE BLOOD COUNT 8.1 10^3/uL (4.0-10.0)
[2018-06-30 06:00] VITALS: BP 112/55
[2018-06-30 06:15] LABS: ALBUMIN 2.4 GM/DL (3.2-5.2); BILIRUBIN,TOTAL 0.9 MG/DL (0.2-1.0); CALCIUM LEVEL 8.1 MG/DL (8.5-10.1); CREATININE FOR GFR 2.81 MG/DL (0.55-1.30); GLOMERULAR FILTRATION RATE 19.7 (>58); POTASSIUM SERUM 4.2 MEQ/L (3.5-5.1); TOTAL PROTEIN 6.2 GM/DL (6.4-8.2)
--- NOTE | 2018-06-30 07:55 | HPE ---
DATE OF ADMISSION: 06/29/2018 CHIEF COMPLAINT: Left forearm rash. HISTORY OF PRESENT ILLNESS: Patient is a 42-year-old female with a past medical history of end-stage renal disease on dialysis Tuesday, and Tuesday, type 1 diabetes, hypertension and hyperlipidemia who presents to [facility] emergency room due to rash that presented 06/29/2018. She noted that her mother found out the rash when she was helping her to use the restroom and she reported the rash was already present on the left forearm, the left arm axillary region and left breast and upper abdominal region. When she initially noticed the rash, she reported there was no pruritus at the site of the erythema. No drainage or pus. She reported burning pain in the left upper extremities at the site of the rash. Denies any rheumatology disease, dyspnea, cough or lesions/crust in the nasal mucosa. She reported that this is the first time that she has this rash. She reported that she was not feeling well on Tuesday. She postponed her hemodialysis on Tuesday to Tuesday. At her hemodialysis on Tuesday and , she received vancomycin treatment. Denies any fever or chills. REVIEW OF SYSTEMS: GENERAL: Denies fever, chills, or headache. HEENT: Denies any nasal lesions or crusts. Positive for history of diabetic retinopathy and macular degeneration. HEART: Denies any chest pain or palpitations. LUNGS: Denies any dyspnea or cough. GASTROINTESTINAL (GI): Denies any nausea, vomiting, hematochezia or melena. GENITOURINARY, (): Denies any dysuria, urinary urgency or frequency. EXTREMITIES: Chronic decreased sensations in bilateral feet from diabetic neuropathy. INTEGUMENTARY: Rash in left forearm, arm, axillary region, left breast and left upper quadrant of abdomen. Denies any pus or drainage. ENDOCRINOLOGY: Type 1 diabetes. PAST MEDICAL HISTORY: Type 1 diabetes diagnosed at age 21. History of diabetic retinopathy. Iron deficiency anemia. End-stage renal failure due to type 1 diabetes on dialysis. Renovascular hypertension. Hyperlipidemia. Macrocytosis. Diabetic retinopathy associated with type 1 diabetes. Macular edema/macular degeneration. Type I diabetes with vitreous hemorrhage of left eye. Alopecia. Abnormal uterine bleeding. PAST SURGICAL HISTORY: Removal of cataracts bilateral, July 2009. Left foot 5th toe amputation by Dr. Meneses, 10/25/2013. Fistula, left arm, 12/12/2014. Dialysis catheter removed April 2015. Kidney and pancreas transplant February 15, 2017. MEDICATIONS: - vitamin D2, 50,000 unit capsule by mouth one time per week on Tuesday. - Lexapro 10 mg by mouth nightly - ferrous citrate 210 mg by mouth three times a day - folic acid/vitamin B complex and C one tablet by mouth daily - Veltassa 8.4 grams by mouth four times per week on Tuesday, Tuesday, Tuesday and Tuesday. ALLERGIES: No known drug allergies. SOCIAL HISTORY: Patient lives at home with . Denies tobacco use, alcohol use or recreational drug use. Denies any recent sick contacts or people with any similar presentation. FAMILY HISTORY: Patient denies any family history of rheumatology disease or autoimmune disease that she knows of besides her own type 1 diabetes. Father has an unspecified thyroid disease and is on a thyroid medication which she is unsure what medication it is. Denies any family history of vasculitis. Father has type 2 diabetes. PHYSICAL EXAMINATION: VITAL: Temperature 98.9, heart rate 73, respiratory rate 18, blood pressure 141/67, pulse ox 98 on 2 liters nasal cannula. Patient is alert and oriented in no to mild distress. HEENT: Head normocephalic, atraumatic. Conjunctiva was grossly unremarkable. No scleral icterus. No obvious rash on the face. NECK: Supple. HEART: Regular rate and rhythm. No murmur. Normal S1, S2. LUNGS: Clear to auscultation bilaterally. No rales, wheezing or rhonchi. Normal airway entry. ABDOMEN: Soft. Bowel sounds auscultated in all four quadrants. No obvious guarding or distention. INTEGUMENTARY: Maculopapular rash in left forearm, arm, axilla, left breast and left upper quadrant of the upper abdomen. Several ecchymosis noted in the lower abdomen. No obvious pus, drainage or opening noted. Mild swelling in the left upper extremities from hand to arm. Mild erythema in left forearm and arm in between the dark red maculopapular lesions. One healing crust at the left forearm about less than 1 cm x 0.5 cm. EXTREMITIES: Radial pulses palpated bilaterally and equal. Left 5th toe status post amputation with well-healed site. NEURO: Alert and oriented times three. No numbness or tingling in bilateral upper and lower extremities. Decreased sensation bilateral feet which patient reported to be at baseline. LABS: CBC: WBC 7.2, hemoglobin 11.0, hematocrit 34.1, platelets 145. CMP: Sodium 138, potassium 4.8, chloride 97, bicarbonate 33, anion gap 8, BUN 16, creatinine 2.13, GFR 27.2, fasting glucose 226, calcium 8.1. Total bilirubin 0.9, direct bilirubin 0.2, AST 52, ALT 64, alkaline phosphatase 365, total creatinine kinase 62, CRP 14.4. Random vancomycin levels 25.8. STEHP screen pending. POC glucose 311. ASSESSMENT/PLAN: 1. Maculopapular erythema in left upper extremities and trunk likely due to vasculitis versus less likely soft tissue infection. Patient did have a well-healed crust on the left forearm which was an opening a few days prior to the maculopapular rash appeared on the left forearm and it is currently healing well with crust. Other than that she reported no opening or drainage that she noticed since the maculopapular rash appeared. Denies fever and chills. Denies any family history of rheumatology disease that she knows of. Denies any nasal lesions or lung disease that she is aware of. STEPH, c-ANCA and p-ANCA are pending. As we cannot rule out soft tissue infection at this time, we will have the patient on IV vancomycin as scheduled. CRP elevated at 14.4 and ESR elevated at 58. Followup with STEPH, c-ANCA, and p-ANCA results. Vital signs as scheduled. Blood culture pending. Tylenol as needed for fever or pain. Percocet 5/325 mg as needed pain. Continue to monitor the patient closely. 2. End-stage renal disease on hemodialysis: Hemodialysis Tuesday, and Tuesday. Continue outpatient medications of Veltassa. Consider nephrology consultation in the morning. Patient will be on renal diet. Repeat BMP in the morning. 3. Type 1 diabetes: Patient will be on insulin sliding scale, every morning and night with POC glucose every morning and night. Hypoglycemia protocol. Continue to monitor the patient closely. 4. Depression: Continue home medication of Lexapro 10 mg by mouth nightly. Patient's mood appears t be stable at this time. MTDD
[2018-06-30] MEDS: HEPARIN SOD (PORCINE) 5000 UNITS/ML VIAL SQ SCH ×2 (08:00→21:04)
[2018-06-30] MEDS: HumaLOG INSULIN (NovoLOG) PER UNIT SC SCH ×4 (08:00→21:00)
[2018-06-30] MEDS: PATIROMER SORBITEX CALCIUM 8.4 GM POWDER PACKET (VELTASSA) PO SCH (10:03)
[2018-06-30] MEDS: NEPHRO-VIT TAB (NEPHROCAPS) PO SCH (10:03)
--- NOTE | 2018-06-30 10:14 | CR.PDOC ---
General Date of Consultation: June 30, 2018 Consultation CONSULTATION REPORT FOR: Dr Barney REASON FOR CONSULTATION: Lt AVF stenosis. Vascular Surgery Dr Jade HPI: 42year oldF with a past medical history significant for ESRD HD as per Nephrology MWF admitted to [facility] with rash left forearm, the left arm axillary region and left breast and upper abdominal region. When she initially noticed the rash, she reported there was no pruritus at the site of the erythema, no drainage or pus. She states she had some burning pain in the left upper extremities at the site of the rash. She states she has had edema of the LUE on and off since she had an infiltration s/p HD of her LUE in January. She states she was scheduled for a procedure with Dr Langston in [place] 07/05/18. Vascular surgery is consulted to evaluate Lt AVF stenosis. Denies any fevers, chills, weakness, fatigue, Headache, Chest Pain, Shortness of breath, cough, palpitations, abdominal pain, N/V/D or changes in bowel or bladder habits. 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 At baseline, very weak almost wheelchair bound. PAST SURGICAL HISTORY: Removal of cataract bilaterally. Left fifth toe amputation. Left arm fistula. Left eye surgery. Kidney and pancreas transplant January 2017. SOCIAL HISTORY: Patient lives at home with . Denies tobacco use, alcohol use or recreational drug use. FAMILY HISTORY: Father has thyroid disease and type 2 diabetes. ROS: As noted in HPI, otherwise 11pt ROS of systems reviewed and unremarkable. PE: GEN: 42yoF, appears stated age. No acute distress. Alert and oriented x 3. HEENT: Normocephalic, atraumatic. Sclera are nonicteric. Conjunctiva without injection. Moist mucous membranes. CHEST: Regular rate and rhythm, +S1, +S2 LUNGS: Clear to auscultation bilaterally. No wheezes, rales, or rhonchi. Breathing appears symmetric and easy. Patient is speaking in full sentences. ABD: Round, soft, non-tender, non-distended. +Bowel sounds throughout. No rebound or guarding. No costovertebral angle tenderness. EXT: Pulses 2+ bilaterally dorsalis pedis and radial. No lower extremity edema appreciated. SKIN: diffuse papular rash witherythema noted LUE extending to left axilla, left chest/flank area and left breast area. No intact vesicles noted. few excoriated areas. AVF is noted LUE which is pulsatile, no thrill noted. Diffuse LUE edema is noted. NEURO: Alert and oriented x 3. Cranial nerves III-XII are intact. No focal deficits appreciated. A&P: 42year oldF with a past medical history significant for ESRD HD as per Nephrology MWF admitted to [facility] with rash left forearm, the left arm axillary region and left breast and upper abdominal region. When she initially noticed the rash, she reported there was no pruritus at the site of the erythema, no drainage or pus. She states she had some burning pain in the left upper extremities at the site of the rash. She states she has had edema of the LUE on and off since she had an infiltration s/p HD of her LUE in January. She states she was scheduled for a procedure with Dr Langston in [place] 07/05/18. 1. Possible Lt AVF stenosis. AVF is noted to be pulsatile, no thrill noted. Plan as per Dr Jade is for fistulogram this afternoon. 2. LUE rash/cellulitis. mgmt as per primary team. IV Vanco/Zosyn. Valtrex started for possible Zoster. ESRD. HD mgmt as per Nephrology. Last HD . DM SSI. Depression Lexapro DVT prophylaxis. SQ Heparin Thank you for your consultation. We will continue to follow along with you. Vital Signs/I&O Vital Signs Date Time Temp Pulse Resp B/P (MAP) Pulse Ox O2 Delivery O2 Flow Rate FiO2 06/30/18 06:00 97.1 72 18 112/55 (74) 92 1.0 06/29/18 23:45 Nasal Cannula I&O- Last 24 Hours up to 6 AM 06/30/18 06:00 Intake Total 420 ml Balance 420 ml Laboratory Data Labs 24H Laboratory Tests 2 06/29/18 18:48: Immature Granulocyte % (Auto) 0.4, White Blood Count 7.2, Red Blood Count 3.11L, Hemoglobin 11.0L, Hematocrit 34.1L, Mean Corpuscular Volume 109.6H, Mean Corpuscular Hemoglobin 35.4H, Mean Corpuscular Hemoglobin Concent 32.3, Red Cell Distribution Width 14.7H, Platelet Count 145L, Neutrophils (%) (Auto) 82.8H, Lymphocytes (%) (Auto) 5.3L, Monocytes (%) (Auto) 9.5H, Eosinophils (%) (Auto) 1.7, Basophils (%) (Auto) 0.3, Neutrophils # (Auto) 5.9, Lymphocytes # (Auto) 0.4L, Monocytes # (Auto) 0.7, Eosinophils # (Auto) 0.1, Basophils # (Auto) 0.0, Nucleated Red Blood Cells % (auto) 0.0, Erythrocyte Sedimentation Rate 58H, Anion Gap 8, Glomerular Filtration Rate 27.2L, Calcium Level 8.1L, Aspartate Amino Transf (AST/SGOT) 52H, Alanine Aminotransferase (ALT/SGPT) 64, Alkaline Phosphatase 365H, Total Bilirubin 0.9, Direct Bilirubin 0.2, Total Creatine Kinase 62, C-Reactive Protein, Quantitative 14.40H, Total Protein 6.3L, Albumin 2.7L, Albumin/Globulin Ratio 0.75L, Random Vancomycin Level 25.8 06/29/18 19:14: 06/29/18 22:18: Bedside Glucose (Misc Panel) 311H 06/30/18 05:01: Nucleated Red Blood Cells % (auto) 0.0, Anion Gap 7L, Glomerular Filtration Rate 19.7L, Calcium Level 8.1L, Aspartate Amino Transf (AST/SGOT) 30, Alanine Aminotransferase (ALT/SGPT) 49, Alkaline Phosphatase 325H, Total Bilirubin 0.9, Total Protein 6.2L, Albumin 2.4L, Albumin/Globulin Ratio 0.63L, Blood Urea Nitrogen 22H, Creatinine 2.81H, Sodium Level 137, Potassium Level 4.2, Chloride Level 96L, Carbon Dioxide Level 34H CBC/BMP Laboratory Tests 06/29/18 18:48 Red Blood Count 3.11 L, Mean Corpuscular Volume 109.6 H, Mean Corpuscular Hemoglobin 35.4 H, Mean Corpuscular Hemoglobin Concent 32.3, Red Cell Distribution Width 14.7 H, Neutrophils (%) (Auto) 82.8 H, Lymphocytes (%) (Auto) 5.3 L, Monocytes (%) (Auto) 9.5 H, Eosinophils (%) (Auto) 1.7, Basophils (%) (Auto) 0.3, Neutrophils # (Auto) 5.9, Lymphocytes # (Auto) 0.4 L, Monocytes # (Auto) 0.7, Eosinophils # (Auto) 0.1, Basophils # (Auto) 0.0 06/30/18 05:01 Red Blood Count 3.05 L, Mean Corpuscular Volume 113.8 H, Mean Corpuscular Hemoglobin 35.1 H, Mean Corpuscular Hemoglobin Concent 30.8 L, Red Cell Distribution Width 14.9 H, Calcium Level 8.1 L, Aspartate Amino Transf (AST/SGOT) 30, Alanine Aminotransferase (ALT/SGPT) 49, Alkaline Phosphatase 325 H, Total Bilirubin 0.9, Total Protein 6.2 L, Albumin 2.4 L Microbiology Microbiology 06/29/18 Blood Culture, Received Pending 06/29/18 Blood Culture, Received Pending Allergies Coded Allergies: No Known Allergies (Unverified , 07/25/17) Home Medications Scheduled Ergocalciferol (Vitamin D2) (Vitamin D2) 50,000 Unit Cap, 50,000 UNIT PO 1XWK, (Reported) TUESDAY Escitalopram Oxalate (Lexapro) 10 Mg Tab, 10 MG PO QHS, (Reported) Ferric Citrate (Auryxia) 210 Mg Tab, 210 MG PO TID, (Reported) TAKES WITH MEALS Folic Acid/Vit B Complex and C (Lesly-Rocío Tablet) 1 Tab Tab, 1 TAB PO DAILY, (Reported) Patiromer Calcium Sorbitex (Veltassa) 8.4 Gm Pow, 8.4 GM PO 4XWK, (Reported) TUESDAY, TUESDAY, TUESDAY AND TUESDAY (NON-DIALYSIS DAYS) Carolina Aguilar June 30, 2018 10:14
--- NOTE | 2018-06-30 10:25 | PHACANCOPD ---
PHARMACY VANCOMYCIN DOSING Pt Demographics Demographics Patient Age:42 , Weight:66.600 , Gender: female Adjusted Body Weight Date: 06/30/18, Adjusted Body Weight: Kg Vancomycin Vancomycin indication: CELLULITIS LEFT UPPER EXTR Vancomycin Target Ranges: 15-20 mcg/ml Vancomycin Load Y/N: No Load Dose Date Time Vancomycin Load Dose: Date: Time: Vancomycin Dose Date: 06/30/18. Current Vancomycin Dose: [1 GM HD] Intermittent Dosing?: Yes Labs Micro Microbiology 06/29/18 Blood Culture, Received Pending 06/29/18 Blood Culture, Received Pending Creatinine Clearance Date:06/30/18. Creatinine Clearance: [36.2].CALCULATED Assessment and Plan Maintaining Current Dose?: Yes Reason for dose change: No Dose Change Pharmacist Note Pharmacist Note 06/30/18: Scr is 2.81 from 2.13 yesterday. Pt is currently scheduled for dialysis tomorrow. We will continue the patient receiving 1g post-HD sessions for now, pending a random level tomorrow morning. Date: 06/30/18. Pharmacist note:42 YOF,dialysis 3xwkly(,,)Presented w/increasing pruritis/rash/cellulitis.Vancomycin 1 Gm after dialysis 06/29.Random level @18;48=25.8.Patient to receive Pip/Tazo 2.25 gm [id number] and intermittent Vancomycin dosing on dialysis days.-will continue to follow [facility] June 30, 2018 10:25
[2018-06-30] MEDS: valACYclovir HCL 500 MG TAB PO SCH (10:38)
--- NOTE | 2018-06-30 11:44 | IPNPDOC ---
Text Note Date of Service The patient was seen on 06/30/18. NOTE Subjective: complains of pain and swelling go the left upper extremity and the left chest wall. no fever or chills, complains of feeling generally very weak. No SOB or cough , no nausea or vomiting or diarrhea. PHYSICAL EXAM: VITAL: as below GENERAL: Patient is alert and oriented in no acute distress. HEENT: Head normocephalic, atraumatic. Conjunctiva was grossly unremarkable. No scleral icterus. HEART: Regular rate and rhythm. Normal S1, S2. There is a continuous murmur heard all over the percordium related to the AVF. LUNGS: Clear to auscultation bilaterally. No rales, wheezing or ronchi. Normal airway entry. ABDOMEN: Soft. Bowel sounds auscultated in all four quadrants. No obvious guarding or distention. INTEGUMENTARY: Maculopapular rash with some pustules in left forearm, arm, axilla, left breast and left upper quadrant of the upper abdomen. Several ecchymosis noted in the lower abdomen. No obvious pus, drainage or opening noted. Mild swelling in the left upper extremities from hand to arm. Mild erythema in left forearm and arm in between the dark red maculopapular lesions. One healing crust at the left forearm about less than 1 cm x 0.5 cm. EXTREMITIES: Radial pulses palpated bilaterally and equal. Left 5th toe status post amputation with well-healed site. NEURO: Alert and oriented times three. No numbness or tingling in bilateral upper and lower extremities. Decreased sensation bilateral feet which patient reported to be at baseline. 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 Patient did get 2 doses of vancomycin post HD this week however the rash continued to spread. pateint was admitted for Cellulitis of the left upper extremity Left upper extremity Cellulitis/ lymphangitis Blood cultures pos for gram positive cocci in clusters. continue vanco and zosyn. There was some concern for shingles so was also give a dose of valtrex consult ID. Left upper extremity swelling she does have intermitted swelling of the left upper extremity now worse with the infection Has known stenosis of the fistula planned for fistulogram this admission Diabetes type 1 with retinopathy and neuropathy continue lispro, start levemir. wheel chair bound Anemia of chronic disease and iron deficiency continue home meds. Dyslipidemia not on any meds. Bone mineral disease due to ESRD continue veltassa, nephrovite, ferric citrate Vit D deficiency continue home meds. DVT prophylaxis has been ordered. A-FIB/CHADSVASC A-FIB History Current/History of A-Fib/PAF?: No VS,Fishbone, I+O VS, Fishbone, I+O Laboratory Tests 06/29/18 18:48 Red Blood Count 3.11 L, Mean Corpuscular Volume 109.6 H, Mean Corpuscular Hemoglobin 35.4 H, Mean Corpuscular Hemoglobin Concent 32.3, Red Cell Distribution Width 14.7 H, Neutrophils (%) (Auto) 82.8 H, Lymphocytes (%) (Auto) 5.3 L, Monocytes (%) (Auto) 9.5 H, Eosinophils (%) (Auto) 1.7, Basophils (%) (Auto) 0.3, Neutrophils # (Auto) 5.9, Lymphocytes # (Auto) 0.4 L, Monocytes # (Auto) 0.7, Eosinophils # (Auto) 0.1, Basophils # (Auto) 0.0 06/30/18 05:01 Red Blood Count 3.05 L, Mean Corpuscular Volume 113.8 H, Mean Corpuscular Hemoglobin 35.1 H, Mean Corpuscular Hemoglobin Concent 30.8 L, Red Cell Distribution Width 14.9 H, Calcium Level 8.1 L, Aspartate Amino Transf (AST/SGOT) 30, Alanine Aminotransferase (ALT/SGPT) 49, Alkaline Phosphatase 325 H, Total Bilirubin 0.9, Total Protein 6.2 L, Albumin 2.4 L Vital Signs Date Time Temp Pulse Resp B/P (MAP) Pulse Ox O2 Delivery O2 Flow Rate FiO2 06/30/18 06:00 97.1 72 18 112/55 (74) 92 1.0 06/29/18 23:45 Nasal Cannula I&O- Last 24 Hours up to 6 AM 06/30/18 06:00 Intake Total 420 ml Balance 420 ml CASSY DE OLIVEIRA MD June 30, 2018 11:44
[2018-06-30] MEDS: LEVEMIR (INSULIN DETEMIR) 1 UNITS/0.01ML SC SCH (13:06)
--- NOTE | 2018-06-30 13:12 | CR ---
DATE OF CONSULTATION: 06/30/2018 REQUESTING PHYSICIAN: Dr. Eun Ritchie CONSULTING PHYSICIAN: Dr. Starr REASON FOR CONSULTATION: Management of end-stage renal disease and hemodialysis. CHIEF COMPLAINT: Patient was sent from dialysis center yesterday because of progressively worsening left arm rash and swelling despite being on vancomycin. HISTORY OF PRESENT ILLNESS: Italia Nye is a 42-year-old female with past medical history of end-stage renal disease on hemodialysis every Tuesday, and Tuesday, type 1 diabetic, history of failed pancreas and kidney transplant, hypertension, hyperlipidemia, and multiple other comorbidities as mentioned below. She is well-known to nephrology service from outpatient hemodialysis center. She reported the left arm burning rash about three days ago at the dialysis center and on examination of the rash a decision was made to start the patient on IV vancomycin. She was given a dose of vancomycin after dialysis two days ago at the dialysis center when she was getting an extra session of dialysis for fluid overload. The patient was seen again at the dialysis center yesterday and during that dialysis session the patient was found to have worsening of the left upper extremity rash and erythema with pain. She was given another dose of vancomycin after dialysis yesterday and decision was made to send the patient to the emergency room for further evaluation. The patient was admitted under the hospitalist service last night. Nephrology service was called for further help in the management of this patient. I saw and evaluated the patient today morning at the bedside. The patient reports that her rash has spread to the left breast and left axillary area. She was given vancomycin and Zosyn overnight. The patient also has an AV fistula in the left upper arm as well and because of that fistula stenosis she has a lot of edema in the left arm. She was pending angiogram by vascular surgery in [place] but she got infection and cellulitis before that. The patient denies any fevers and chills. She got blood cultures drawn at the dialysis center, report is pending. However, the cultures sent on admission last night are growing gram-positive cocci in clusters. PAST MEDICAL HISTORY: The patient has a past medical history of: Type 1 diabetes since 21 years of age. She has end-stage renal disease on hemodialysis. History of diabetic retinopathy. Anemia secondary to end-stage renal disease. Renovascular hypertension. Hyperlipidemia. Abnormal uterine bleeding. Chronic noncompliance with fluid restriction and chronic fluid overload. PAST SURGICAL HISTORY: Status post bilateral better surgery in 2009. Status post left fifth toe amputation in September 2013. Status post left upper arm AV fistula in 2014. Status post of pancreas and kidney transplant in 2016, which failed and the patient was septic and coded, and was really sick during that admission. ALLERGIES: No known drug allergies. FAMILY HISTORY: No significant family history of end-stage renal disease requiring hemodialysis. SOCIAL HISTORY: The patient lives at home with her . She denies any illicit drug abuse, smoking or alcohol abuse. REVIEW OF SYSTEMS: CONSTITUTIONAL: Patient denies any fevers and chills. EYES: She denies any blurry vision or double vision. She has history of cataract surgery. ENT: She denies any dysphagia or odynophagia, ear discharge. CARDIOVASCULAR: She denies any chest pain or palpitations. She does report lower extremity edema. RESPIRATORY: She denies any shortness of breath or cough. GASTROINTESTINAL (GI): She denies any nausea, vomiting, constipation. GENITOURINARY: She denies any dysuria or hematuria. MUSCULOSKELETAL: She does report of pain and swelling of the left arm. [employer]: She denies any strokes or seizures. PSYCH: She denies any depression or anxiety. ENDOCRINE: She reports type 1 diabetes. HEMATOLOGY/ONCOLOGY: She denies any easy bleeding or bruising. SKIN: She does report rash in the left arm along with swelling. All other review of systems is negative. PHYSICAL EXAMINATION: GENERAL: The patient is awake, alert, oriented times three, lying in bed, in no apparent distress. VITAL SIGNS: Temperature is 97.1 degrees Fahrenheit, blood pressure 112/55, pulse is 72, respiratory rate 18, saturating 92% on nasal cannula at 1 liter. HEAD AND NECK EXAM: Extraocular muscles intact. Bilateral pseudophakia was noted. Neck is supple. There is no jugular venous distention (JVD). She has alopecia. CARDIOVASCULAR: S1-S2, 1+ edema of the bilateral lower extremities. RESPIRATORY: Chest is clear to auscultation bilaterally. Bilateral equal air entry. ABDOMEN: Soft. Positive bowel sounds. Nontender. No organomegaly. MUSCULOSKELETAL: Patient has erythema and edema of the left arm. She has a left arm AV fistula as well with positive thrill and bruit. She has 3+ edema of the left arm and there is an acute maculopapular rash and pustular rash in the left arm which starts from the wrist and goes all the way up to the left axilla and left side of the shoulder as well. [employer]: No focal deficit. Power is 5/5 in all extremities. PSYCH: Normal mood and affect. LAB REVIEW: CBC showed WBC of 8.1, hemoglobin 10.7, platelets of 153. BMP showed sodium 137, potassium 4.2, chloride 96, bicarb 34, BUN 22, creatinine is 2.8, albumin is 2.4. Vancomycin 25.8. Microbiology: Blood cultures 03/01 is growing gram-positive cocci in clusters. IMAGING STUDIES: A Doppler of the left arm was done which showed 50% narrowing and increased velocity at the arterial anastomosis. CURRENT INPATIENT MEDICATIONS: The patient's medications were all reviewed by me. She is currently on: - Zosyn 2.25 grams IV every 12 hours - vancomycin 1 gram IV with hemodialysis - Tylenol as needed - Lexapro 10 mg at bedtime - heparin 5000 units subcu twice a day - insulin Levemir 8 units subcu daily - insulin sliding scale - morphine as needed for pain - Zofran 4 mg one dose - Percocet 1 tablet every 6 hours as needed for mild to moderate pain - VELTASSA 8.4 grams by mouth Tuesday, Tuesday, Tuesday and Tuesday - Nephro-Rocío one tablet daily - I started her on Valtrex 1 gram p.o. daily. ASSESSMENT: For 42 years of female with type 1 diabetes, end-stage renal disease on hemodialysis admitted this time with rash and cellulitis of the left upper extremity. PLAN: 1. Left upper extremity rash and cellulitis. The patient was started on vancomycin three days ago at the dialysis center; however, her cellulitis is still getting worse. Initial blood cultures are growing Gram positive cocci in clusters. Most likely it is a Staphylococcus associated cellulitis. Continue the vancomycin however, given the maculopapular rash, which has a burning pain associated with it, I have started the patient empirically on Valtrex to cover her for shingles as well. Infectious disease consult was been requested as well. Continue the Zosyn, current dose is adequate for renal function. Rest of the management is as per ID recommendations. 2. End-stage renal disease on hemodialysis. The patient regular dialysis days are Tuesday, and Saturday. She finished her regular dialysis yesterday. Next hemodialysis will be tomorrow morning. 3. Chronic hyperkalemia. The patient is chronically noncompliant with a low potassium diet and she gets potassium binder four times a week, potassium level is acceptable. Continue current dose of VELTASSA. 4. Anasarca. The patient is chronically noncompliant with fluid restriction. She gets about 4-5 liters of fluid removed with each dialysis. Continue the fluid restriction. The rest of the fluid management will be done during dialysis. 5. Anemia and end-stage renal disease. Hemoglobin is 10.7, which is optimal. The patient will be given a dose of Aranesp with dialysis. 6. Diabetes mellitus type 1. The patient is insulin dependent. Continue current dose of insulin Levemir and insulin sliding scale. 7. History of depression. Continue home dose of Lexapro 10 mg p.o. q.h.s. Thank you for involving me in the care of this patient. I shall be happy to follow the patient along with you tomorrow morning. MTDAnaya
[2018-06-30 14:00] VITALS: BP 134/65
[2018-06-30] MEDS ORDERED: BUPIVACAINE HCL 0.5% 10 ML VIAL As Ordered ONE (14:35)
[2018-06-30] MEDS ORDERED: fentaNYL 100 MCG/2 ML INJECTION (J3010) As Ordered ONE (14:35)
[2018-06-30] MEDS ORDERED: ISOVUE-300 61% 100ML VIAL (Q9967) As Ordered ONE (14:36)
[2018-06-30] MEDS ORDERED: MIDAZOLAM INJ 2 MG/2 ML VIAL (J2250) As Ordered ONE (14:36)
[2018-06-30] MEDS ORDERED: LIDOCAINE 2% MDV 20 ML VIAL As Ordered ONE (14:36)
[2018-06-30] MEDS: **VANCO AFTER HD** MISC XX SCH (16:00)
--- NOTE | 2018-06-30 17:36 | CR.PDOC ---
General Date of Consultation: June 30, 2018 Referring Provider: CASSY DE OLIVEIRA MD Attending Physician: Rand Olsen MD Consultation REASON FOR CONSULTATION/CHIEF COMPLAINT: Antibiotic management of rash, possible cellulitis HISTORY OF PRESENT ILLNESS: Patient is a 42-year-old female with a past medical history of end-stage renal disease on dialysis Tuesday, and Tuesday, and type 1 diabetes. Patient presented to [facility] ED on June 29 with rash on her left upper extremity that according to patient was first noticed on the Tuesday prior. According to patient, she started not feeling well on Tuesday with nausea, vomiting and diarrhea. She took Imodium for the diarrhea. She felt well enough on Tuesday to go to attempt dialysis. During dialysis a rash was noted in her upper extremity. Vancomycin was given to patient. On patient returned to dialysis and they noticed that the rash was progressively worse. Again, patient received vancomycin. Following dialysis, patient was instructed to present to the ED. On initial presentation patient stated that the rash had a burning sensation to it. She also felt pain throughout her arm. However, there was no itching. Prior to developing the rash, patient does not recall if there was a burning sensation. She admits to 1 dog scratch on her arm. Denies any preceding fever, denies any chills. Denies any detergent changes, no new lotions, no recent travel, no exposures. No paresthesia noted on arm. The rash is only located on her left upper extremity, extending to the top of her left breast. On admission patient was started on vancomycin, and Zosyn for presumable cellulitis infection. Valtrex was started on the second of admission. Infectious disease was consulted for management of the rash. ALLERGIES: Please see below. HOME MEDICATIONS: Please see below. PAST MEDICAL HISTORY: Type 1 diabetes diagnosed at age 21. History of diabetic retinopathy. Iron deficiency anemia. End-stage renal failure due to type 1 diabetes on dialysis. Renovascular hypertension. Hyperlipidemia. Macrocytosis. Diabetic retinopathy associated with type 1 diabetes. Macular edema/macular degeneration. Type I diabetes with vitreous hemorrhage of left eye. Alopecia. Abnormal uterine bleeding. PAST SURGICAL HISTORY: Removal of cataracts bilateral, July 2009. Left foot 5th toe amputation by Dr. Meneses, 10/25/2013. Fistula, left arm, 12/12/2014. Dialysis catheter removed April 2015. 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 No other pets ROS CONSTITUTIONAL: No fevers, denies chills, denies weight loss, denies lethargy HEENT: No rhinorrhea, no itchy eyes, no congesion, CARDIOVASCULAR: No murmurs no palpitations and arrhythmias RESPIRATORY: Not cough, No SOB, no issues to report GASTROINTESTINAL: No nausea, no vomiting, no difficulty swallowing, no pain with eating, no diarrhea HEMATOLOGICAL: No bleeding GENITOURINARY:No Issues HEMATOLOGIC/LYMPHATIC: No swelling SKIN: Admits to burning, painful rash located on left upper extremity extending to the top of the left breast. PE VITALS: See Below HEENT: Head normocephalic, atraumatic. Clinic conjunctiva. No scleral icterus. No facial rash NECK: Supple. HEART: Regular rate and rhythm. No murmur. Normal S1, S2. LUNGS: Clear to auscultation bilaterally. No rales, wheezing or rhonchi. Normal airway entry. ABDOMEN: Soft. Bowel sounds auscultated in all four quadrants. Bruising from insulin injection, surgical scar noted on midline on abdomen. INTEGUMENTARY: Macular and papular, erythematous rash on left arm , extending from shoulder to forearm, just below the wrist, rashes also noted patient axilla, rash is also on patient's left breast. Two healed scratch vyas on patient's left upper extremity midway on the forearm. No vesicles noted EXTREMITIES:Left 5th toe status post amputation LABORATORY DATA: Please see below. MICRO: Blood culture positive for gram-positive cocci in clusters Images: Chest x-ray:Right lower lobe opacity, pneumonia/atelectasis/effusion. Correlate clinically with appropriate followup. Consider PA and lateral views of the chest rather than AP. Upper extremity vascular ultrasound: 1. No sonographic evidence of deep venous thrombosis. 2. Patent cephalic vein to brachial artery dialysis graft with approximately 50% narrowing and increased velocity at the arterial anastomosis, suggesting hemodynamically significant stenosis. Consider fistulogram for further evaluation, if clinically indicated ASSESSMENT/PLAN: A 42-year-old female presenting with rash in her upper extremity, presumptive diagnosis is cellulitis. Infectious disease has been consulted for rash management. Based on rash presentation, differential diagnosis includes cellulitis, herpes zoster VZV/ HSV or vasculitis. Although the rash does not appear to follow one dermatomal unit. Herpes zoster and VZV viral PCR has been ordered. Wound cultures has also been ordered from purulent drainage. Until cultures are available. Continue vancomycin, DC Zosyn. Continue Valtrex. Continue to monitor patient clinically. If patient fails to improve, consider referral to dermatology on Tuesday. Vital Signs/I&O Vital Signs Date Time Temp Pulse Resp B/P (MAP) Pulse Ox O2 Delivery O2 Flow Rate FiO2 06/30/18 14:00 98.1 75 18 134/65 (88) 96 3.5 06/29/18 23:45 Nasal Cannula I&O- Last 24 Hours up to 6 AM 06/30/18 06:00 Intake Total 420 ml Balance 420 ml Laboratory Data Labs 24H Laboratory Tests 2 06/29/18 18:48: Immature Granulocyte % (Auto) 0.4, White Blood Count 7.2, Red Blood Count 3.11L, Hemoglobin 11.0L, Hematocrit 34.1L, Mean Corpuscular Volume 109.6H, Mean Corpuscular Hemoglobin 35.4H, Mean Corpuscular Hemoglobin Concent 32.3, Red Cell Distribution Width 14.7H, Platelet Count 145L, Neutrophils (%) (Auto) 82.8H, Lymphocytes (%) (Auto) 5.3L, Monocytes (%) (Auto) 9.5H, Eosinophils (%) (Auto) 1.7, Basophils (%) (Auto) 0.3, Neutrophils # (Auto) 5.9, Lymphocytes # (Auto) 0.4L, Monocytes # (Auto) 0.7, Eosinophils # (Auto) 0.1, Basophils # (Auto) 0.0, Nucleated Red Blood Cells % (auto) 0.0, Erythrocyte Sedimentation Rate 58H, Anion Gap 8, Glomerular Filtration Rate 27.2L, Calcium Level 8.1L, Aspartate Am lambert Transf (AST/SGOT) 52H, Alanine Aminotransferase (ALT/SGPT) 64, Alkaline Phosphatase 365H, Total Bilirubin 0.9, Direct Bilirubin 0.2, Total Creatine Kinase 62, C-Reactive Protein, Quantitative 14.40H, Total Protein 6.3L, Albumin 2.7L, Albumin/Globulin Ratio 0.75L, Random Vancomycin Level 25.8 06/29/18 19:14: 06/29/18 22:18: Bedside Glucose (Misc Panel) 311H 06/30/18 05:01: Nucleated Red Blood Cells % (auto) 0.0, Anion Gap 7L, Glomerular Filtration Rate 19.7L, Calcium Level 8.1L, Aspartate Amino Transf (AST/SGOT) 30, Alanine Aminotransferase (ALT/SGPT) 49, Alkaline Phosphatase 325H, Total Bilirubin 0.9, Total Protein 6.2L, Albumin 2.4L, Albumin/Globulin Ratio 0.63L, Blood Urea Nitrogen 22H, Creatinine 2.81H, Sodium Level 137, Potassium Level 4.2, Chloride Level 96L, Carbon Dioxide Level 34H 06/30/18 11:22: Bedside Glucose (Misc Panel) 263H 06/30/18 16:51: Bedside Glucose (Misc Panel) 154H CBC/BMP Laboratory Tests 06/29/18 18:48 Red Blood Count 3.11 L, Mean Corpuscular Volume 109.6 H, Mean Corpuscular Hemoglobin 35.4 H, Mean Corpuscular Hemoglobin Concent 32.3, Red Cell Distribution Width 14.7 H, Neutrophils (%) (Auto) 82.8 H, Lymphocytes (%) (Auto) 5.3 L, Monocytes (%) (Auto) 9.5 H, Eosinophils (%) (Auto) 1.7, Basophils (%) (Auto) 0.3, Neutrophils # (Auto) 5.9, Lymphocytes # (Auto) 0.4 L, Monocytes # (Auto) 0.7, Eosinophils # (Auto) 0.1, Basophils # (Auto) 0.0 06/30/18 05:01 Red Blood Count 3.05 L, Mean Corpuscular Volume 113.8 H, Mean Corpuscular Hemoglobin 35.1 H, Mean Corpuscular Hemoglobin Concent 30.8 L, Red Cell Distribution Width 14.9 H, Calcium Level 8.1 L, Aspartate Amino Transf (AST/SGOT) 30, Alanine Aminotransferase (ALT/SGPT) 49, Alkaline Phosphatase 325 H, Total Bilirubin 0.9, Total Protein 6.2 L, Albumin 2.4 L Microbiology Microbiology 06/29/18 Blood Culture, Received Pending 06/29/18 Blood Culture - Final, Complete Allergies Coded Allergies: No Known Allergies (Unverified , 07/25/17) Home Medications Scheduled Ergocalciferol (Vitamin D2) (Vitamin D2) 50,000 Unit Cap, 50,000 UNIT PO 1XWK, (Reported) TUESDAY Escitalopram Oxalate (Lexapro) 10 Mg Tab, 10 MG PO QHS, (Reported) Ferric Citrate (Auryxia) 210 Mg Tab, 210 MG PO TID, (Reported) TAKES WITH MEALS Folic Acid/Vit B Complex and C (Lesly-Rocío Tablet) 1 Tab Tab, 1 TAB PO DAILY, (Reported) Patiromer Calcium Sorbitex (Veltassa) 8.4 Gm Pow, 8.4 GM PO 4XWK, (Reported) TUESDAY, TUESDAY, TUESDAY AND TUESDAY (NON-DIALYSIS DAYS) GME ATTESTATION GME ATTESTATION My faculty preceptor for this patient encounter was physically present during the encounter and was fully available. All aspects of the patient interview, examination, medical decision making process, and medical care plan development were reviewed and approved by the faculty preceptor. The faculty preceptor is aware and concurs with the plan as stated in the body of this note and will attest to such by his/her cosignature. NAZANIN FELIX DO June 30, 2018 17:36 Rand Olsen MD July 03, 2018 21:58
[2018-06-30] MEDS: ESCITALOPRAM OXALATE 10 MG TAB (LEXAPRO) PO SCH (21:03)
[2018-06-30 22:00] VITALS: BP 121/53
[2018-07-01 04:31] LABS: HEMATOCRIT 35.3 % (36.0-47.0); HEMOGLOBIN 10.9 g/dl (12.0-15.5); MEAN CORPUSCULAR HEMOGLOBIN 35.3 pg (27.0-33.0); MEAN CORPUSCULAR HGB CONC 30.9 g/dl (32.0-36.5); PLATELET COUNT, AUTOMATED 153 10^3/uL (150-450); RED BLOOD COUNT 3.09 10^6/uL (4.00-5.40); WHITE BLOOD COUNT 7.8 10^3/uL (4.0-10.0)
[2018-07-01 04:36] LABS: MEAN CORPUSCULAR VOLUME 114.2 fl (80.0-96.0)
[2018-07-01 05:02] LABS: ALBUMIN 2.2 GM/DL (3.2-5.2); BILIRUBIN,TOTAL 0.6 MG/DL (0.2-1.0); CALCIUM LEVEL 8.1 MG/DL (8.5-10.1); GLOMERULAR FILTRATION RATE 13.1 (>58); POTASSIUM SERUM 4.6 MEQ/L (3.5-5.1); TOTAL PROTEIN 5.8 GM/DL (6.4-8.2); VANCOMYCIN RANDOM 20.6 UG/ML
[2018-07-01] MEDS: valACYclovir HCL 500 MG TAB PO SCH (05:55)
[2018-07-01] MEDS: NEPHRO-VIT TAB (NEPHROCAPS) PO SCH (05:55)
[2018-07-01] MEDS: HEPARIN SOD (PORCINE) 5000 UNITS/ML VIAL SQ SCH ×2 (05:55→21:20)
[2018-07-01] MEDS: PERCOCET 5MG/325MG TAB PO PRN ×2 (05:56→21:21)
[2018-07-01] MEDS: PATIROMER SORBITEX CALCIUM 8.4 GM POWDER PACKET (VELTASSA) PO SCH (05:56)
[2018-07-01] MEDS: LEVEMIR (INSULIN DETEMIR) 1 UNITS/0.01ML SC SCH (05:56)
[2018-07-01 06:00] VITALS: BP 102/55
[2018-07-01] MEDS: HumaLOG INSULIN (NovoLOG) PER UNIT SC SCH ×4 (07:59→21:21)
[2018-07-01 09:00] VITALS: BP 124/70
--- NOTE | 2018-07-01 15:03 | IPNPDOC ---
Text Note Date of Service The patient was seen on 07/01/18. NOTE Subjective: Continues to complain of pain and swelling go the left upper extre mity and the left chest wall. There is the rash maculopapular with some pustules still present. no fever or chills, complains of feeling generally very weak. No SOB or cough , no nausea or vomiting or diarrhea. Had fistulogram yesterday. Blood cultures noted. HD today. PHYSICAL EXAM: VITAL: as below GENERAL: Patient is alert and oriented in no acute distress. HEENT: Head normocephalic, atraumatic. Conjunctiva was grossly unremarkable. No scleral icterus. HEART: Regular rate and rhythm. Normal S1, S2. There is a continuous murmur heard all over the percordium related to the AVF. LUNGS: Clear to auscultation bilaterally. No rales, wheezing or ronchi. Normal airway entry. ABDOMEN: Soft. Bowel sounds auscultated in all four quadrants. No obvious guarding or distention. INTEGUMENTARY: Maculopapular rash with some pustules in left forearm, arm, axilla, left breast and left chest wall . Several ecchymosis noted in the lower abdomen. Mild swelling in the left upper extremities from hand to arm. Mild erythema in left forearm and arm in between the dark red maculopapular lesions. One healing crust at the left forearm about less than 1 cm x 0.5 cm. EXTREMITIES: Radial pulses palpated bilaterally and equal. Left 5th toe status post amputation with well-healed site. NEURO: Alert and oriented times three. No numbness or tingling in bilateral upper and lower extremities. Decreased sensation bilateral feet which patient reported to be at baseline. 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 Patient did get 2 doses of vancomycin post HD this week however the rash continued to spread. pateint was admitted for Cellulitis of the left upper extremity Left upper extremity Cellulitis/ lymphangitis/ herpes or zoster infection. Blood cultures pos for gram positive for staph 1/2 continue vanco and valtrex. Appreciate ID consultation. Left upper extremity swelling she does have intermitted swelling of the left upper extremity now worse with the infection Has known stenosis of the fistula Had fistulogram on 06/30/18 Diabetes type 1 with retinopathy and neuropathy continue lispro, levemir. wheel chair bound Anemia of chronic disease and iron deficiency continue home meds. Dyslipidemia not on any meds. Bone mineral disease due to ESRD continue veltassa, nephrovite, ferric citrate Vit D deficiency continue home meds. Bilateral foot drop after prolong hospitalization after transplant with complicated course with cardiac arrest in the post op period was hospitalized from Feb 17 2017 to May 2017 in [place] then was in rehab till August 2017 at [facility]. DVT prophylaxis has been ordered. VS,Fishbone, I+O VS, Fishbone, I+O Laboratory Tests 07/01/18 04:15 Red Blood Count 3.09 L, Mean Corpuscular Volume 114.2 H, Mean Corpuscular Hemoglobin 35.3 H, Mean Corpuscular Hemoglobin Concent 30.9 L, Red Cell Distribution Width 14.8 H, Calcium Level 8.1 L, Aspartate Amino Transf (AST/SGOT) 39 H, Alanine Aminotransferase (ALT/SGPT) 28, Alkaline Phosphatase 311 H, Total Bilirubin 0.6, Total Protein 5.8 L, Albumin 2.2 L Vital Signs Date Time Temp Pulse Resp B/P (MAP) Pulse Ox O2 Delivery O2 Flow Rate FiO2 07/01/18 05:56 16 06/30/18 22:00 97.7 65 121/53 (75) 97 06/30/18 14:00 3.5 06/29/18 23:45 Nasal Cannula I&O- Last 24 Hours up to 6 AM 07/01/18 06:00 Intake Total 590 ml Output Total 0 ml Balance 590 ml CASSY DE OLIVEIRA MD July 01, 2018 06:40
[2018-07-01] MEDS: **VANCO AFTER HD** MISC XX SCH (16:00)
[2018-07-01 16:03] LABS: ANTINUCLEAR ANTIBODIES DIRECT Negative (Negative)
[2018-07-01] MEDS: ESCITALOPRAM OXALATE 10 MG TAB (LEXAPRO) PO SCH (21:20)
[2018-07-01 22:00] VITALS: BP 139/60
[2018-07-02 06:00] VITALS: BP 127/64
[2018-07-02 06:26] LABS: HEMATOCRIT 35.5 % (36.0-47.0); HEMOGLOBIN 11.1 g/dl (12.0-15.5); MEAN CORPUSCULAR HEMOGLOBIN 35.2 pg (27.0-33.0); MEAN CORPUSCULAR HGB CONC 31.3 g/dl (32.0-36.5); MEAN CORPUSCULAR VOLUME 112.7 fl (80.0-96.0); PLATELET COUNT, AUTOMATED 166 10^3/uL (150-450); RED BLOOD COUNT 3.15 10^6/uL (4.00-5.40); WHITE BLOOD COUNT 7.4 10^3/uL (4.0-10.0)
[2018-07-02 06:55] LABS: ALBUMIN 2.1 GM/DL (3.2-5.2); BILIRUBIN,TOTAL 0.5 MG/DL (0.2-1.0); CALCIUM LEVEL 8.2 MG/DL (8.5-10.1); CREATININE FOR GFR 3.61 MG/DL (0.55-1.30); GLOMERULAR FILTRATION RATE 14.8 (>58); POTASSIUM SERUM 4.5 MEQ/L (3.5-5.1)
--- NOTE | 2018-07-02 09:20 | IPNPDOC ---
Text Note Date of Service The patient was seen on 07/02/18. NOTE Subjective: Swelling improving with compression bandage. No pain now in the arm There is the rash maculopapular with some pustules still present however no new pustules seen. no fever or chills, complains of feeling generally very weak. No SOB or cough , no nausea or vomiting or diarrhea. PHYSICAL EXAM: VITAL: as below GENERAL: Patient is alert and oriented in no acute distress. HEENT: Head normocephalic, atraumatic. Conjunctiva was grossly unremarkable. No scleral icterus. HEART: Regular rate and rhythm. Normal S1, S2. There is a continuous murmur heard all over the percordium related to the AVF. LUNGS: Clear to auscultation bilaterally. No rales, wheezing or ronchi. Normal airway entry. ABDOMEN: Soft. Bowel sounds auscultated in all four quadrants. No obvious guarding or distention. INTEGUMENTARY: Maculopapular rash with some pustules in left forearm, arm, axilla, left breast and left chest wall . Several ecchymosis noted in the lower abdomen. Mild swelling in the left upper extremities from hand to arm. Mild erythema in left forearm and arm in between the dark red maculopapular lesions. One healing crust at the left forearm about less than 1 cm x 0.5 cm. EXTREMITIES: Radial pulses palpated bilaterally and equal. Left 5th toe status post amputation with well-healed site. NEURO: Alert and oriented times three. No numbness or tingling in bilateral upper and lower extremities. Decreased sensation bilateral feet which patient reported to be at baseline. 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 Patient did get 2 doses of vancomycin post HD this week however the rash continued to spread. pateint was admitted for Cellulitis of the left upper extremity Left upper extremity Cellulitis/ lymphangitis/ herpes or zoster infection. Blood cultures pos MSSA 1/2 bottles. continue vanco and valtrex. Appreciate ID consultation. 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 continue lispro, levemir. wheel chair bound Anemia of chronic disease and iron deficiency continue home meds. Dyslipidemia not on any meds. Bone mineral disease due to ESRD continue veltassa, nephrovite, ferric citrate Vit D deficiency continue home meds. Bilateral foot drop after prolong hospitalization after transplant with complicated course with cardiac arrest in the post op period was hospitalized from Feb 17 2017 to May 2017 in [place] then was in rehab till August 2017 at [facility]. DVT prophylaxis has been ordered. A-FIB/CHADSVASC A-FIB History Current/History of A-Fib/PAF?: No VS,Fishbone, I+O VS, Fishbone, I+O Laboratory Tests 07/02/18 05:34 Red Blood Count 3.15 L, Mean Corpuscular Volume 112.7 H, Mean Corpuscular Hemoglobin 35.2 H, Mean Corpuscular Hemoglobin Concent 31.3 L, Red Cell Distribution Width 14.6 H, Calcium Level 8.2 L, Aspartate Amino Transf (AST/SGOT) 42 H, Alanine Aminotransferase (ALT/SGPT) 20, Alkaline Phosphatase 320 H, Total Bilirubin 0.5, Total Protein 6.0 L, Albumin 2.1 L Vital Signs Date Time Temp Pulse Resp B/P (MAP) Pulse Ox O2 Delivery O2 Flow Rate FiO2 07/02/18 06:00 97.5 78 18 127/64 (85) 99 1.0 06/29/18 23:45 Nasal Cannula I&O- Last 24 Hours up to 6 AM 07/02/18 06:00 Intake Total 780 ml Output Total 2000 ml Balance -1220 ml CASSY DE OLIVEIRA MD July 02, 2018 09:20
[2018-07-02] MEDS: valACYclovir HCL 500 MG TAB PO SCH (09:27)
[2018-07-02] MEDS: NEPHRO-VIT TAB (NEPHROCAPS) PO SCH (09:27)
[2018-07-02] MEDS: HEPARIN SOD (PORCINE) 5000 UNITS/ML VIAL SQ SCH ×2 (09:28→21:21)
[2018-07-02] MEDS: HumaLOG INSULIN (NovoLOG) PER UNIT SC SCH ×4 (09:29→21:22)
[2018-07-02] MEDS: LEVEMIR (INSULIN DETEMIR) 1 UNITS/0.01ML SC SCH (09:29)
[2018-07-02 14:00] VITALS: BP 97/47
--- NOTE | 2018-07-02 14:25 | IPN ---
DATE: 07/01/2018 SUBJECTIVE: The patient was seen and examined at the bedside today morning. She is afebrile, hemodynamically stable. Today is patient's regular day of dialysis. She got the angiogram of the left upper arm AV fistula done and she reports ballooning of the stenosis was done. She has a wrap at the left arm and reports that rash and swelling is improving today as compared with yesterday. OBJECTIVE: Vital signs: Temperature is 97.3 degrees Fahrenheit, blood pressure 124/70, pulse is 75, respiratory of 16, saturating 98% on 1 liter by nasal cannula. Intake and output: There is no urine output recorded. Weight on the bed scale is not available. PHYSICAL EXAMINATION: General: The patient is awake, alert, oriented times three, laying in bed in no apparent distress. HEAD AND NECK EXAM: Extraocular muscles intact. Pupils equally round and reactive to light. Mucous membranes are moist. Neck is supple. There is no jugular venous distention (JVD). Cardiovascular: S1, S2. 1+ edema of the bilateral lower extremities. Respiratory: Chest is clear to auscultation bilaterally. Bilateral equal air entry. No rales or rhonchi. Abdomen: Soft. Positive bowel sounds. Nontender. No organomegaly. Musculoskeletal: The patient has a compression bandage in the left arm, but I could see the rash in the shoulder area and the left scapular area is getting better. CENTRAL NERVOUS SYSTEM ([employer]IVE[employer]OCK [employer]): No focal deficit. Power is 5/5 in all extremities. LABORATORY REVIEW: CBC showed WBC 7.8, hemoglobin 10.9, platelets of 153. BMP showed sodium 136, potassium 4.6, chloride 95, bicarbonate 34, BUN 37, creatinine is 4, albumin 2.2. Vancomycin level is 20.6 today. STEPH screen is negative. Microbiology, one out of two cultures is positive for Staphylococcus aureus. Wound culture is pending. CURRENT INPATIENT MEDICATIONS: The patient's medications were all reviewed by me. She continues to be on IV vancomycin. IV Zosyn has been stopped. She continues to be on Valtrex as well. ASSESSMENT/PLAN: 1. Left upper extremity rash and cellulitis. The patient continues to be on IV vancomycin and oral Valtrex. One of the two blood culture is positive for Staphylococcus aureus. She was seen by infectious disease as well. Continue the current antibiotic. Zosyn was stopped by infectious disease. 2. End-stage renal disease on hemodialysis. Today is the patient's regular day of dialysis. I will try to remove at least 2 to 3 liters of fluid as tolerated by her blood pressure. 3. Anemia in end-stage renal disease. Hemoglobin is 10.9, which is optimal. No need of Aranesp administration at this point. 4. Left upper arm AV fistula stenosis. The patient got the angiogram of the fistula done. The official report is not available but the patient reports that stenotic area was ballooned. 5. Diabetes mellitus type 1. Continue insulin sliding scale and insulin Levemir. Glucose levels are within the acceptable range.
[2018-07-02] MEDS: **VANCO AFTER HD** MISC XX SCH (15:48)
[2018-07-02 17:10] VITALS: BP 150/80
[2018-07-02] MEDS: PERCOCET 5MG/325MG TAB PO PRN (21:21)
[2018-07-02] MEDS: ESCITALOPRAM OXALATE 10 MG TAB (LEXAPRO) PO SCH (21:21)
[2018-07-02 22:00] VITALS: BP 160/75
[2018-07-03 01:00] VITALS: BP 165/80
--- NOTE | 2018-07-03 03:33 | IPN ---
DATE OF SERVICE: 07/02/2018 SUBJECTIVE: The patient is seen and examined this morning at the bedside. She denies any overnight complaints. Her left upper extremity swelling is improving with the compression bandage. She reports her arm was evaluated by infectious diseases this morning and no new pustules were noted. She denies any issue with her hemodialysis treatments. VITAL SIGNS: Temperature 97.5, pulse 78, respiratory rate 18, blood pressure 127/64 saturating 99% on 1 liter nasal cannula. Intake yesterday was not fully recorded. Dialysis yesterday removed 2 liters. Weight on the bed scale today is not recorded. PHYSICAL EXAMINATION: GENERAL: The patient is seen in bed, awake, alert, and oriented, comfortable in no acute distress. Extraocular muscles are intact. No scleral icterus. CARDIAC: Regular rate and rhythm. S1, S2. Murmur noted. RESPIRATORY: Chest is clear to auscultation bilaterally. Equal air entry. No crackles or rales. The jugular veins are not elevated. ABDOMEN: Soft. There are bowel sounds. Nontender. MUSCULOSKELETAL: The patient's left arm is wrapped in dressings. The fistula has a thrill and bruit. There is edema noted. I did not take down the dressings to examine the arm. EXTREMITIES: Lower extremities have trace to 1+ edema. NEUROLOGIC: She is oriented times 3, interactive and conversational. LABORATORY DATA: White count 7.4, hemoglobin 11.1, platelets 166. Sodium 134, potassium 4.5, glucose 393. INPATIENT MEDICATIONS: Reviewed by myself and unchanged from prior. She continues on vancomycin and Valtrex. PROBLEMS: 1. End-stage renal disease on hemodialysis on Tuesday, , and Tuesday schedule. Her electrolytes and volume status are acceptable. Next dialysis treatment will be on Tuesday. Continue with oral fluid restriction. 2. Left upper extremity rash and cellulitis. Blood cultures drawn in the dialysis unit are still pending and I will call on Tuesday to get the report. Blood cultures drawn in the hospital grew methicillin-sensitive Staphylococcus aureus (MSSA) in 1 out of 2 bottles. She is followed by infectious diseases. She continues on renally dosed vancomycin with an appropriate random vancomycin level yesterday and she is also continued on empiric Valtrex and herpes simplex viruses (HSV) and VVV. Polymerase chain reactions (PCRs) are pending. The arm is symptomatically improving. There is associated left upper extremity swelling and she has known underlying stenosis of the fistula. 3. Hyperkalemia secondary to chronic renal failure and dietary indiscretion. She continues on Veltassa four times per week. 4. Type 1 diabetes. Insulin is managed as per primary team.
[2018-07-03 06:00] VITALS: BP 151/68
[2018-07-03 06:00] LABS: HEMATOCRIT 32.8 % (36.0-47.0); HEMOGLOBIN 10.4 g/dl (12.0-15.5); MEAN CORPUSCULAR HEMOGLOBIN 34.3 pg (27.0-33.0); MEAN CORPUSCULAR HGB CONC 31.7 g/dl (32.0-36.5); MEAN CORPUSCULAR VOLUME 108.3 fl (80.0-96.0); PLATELET COUNT, AUTOMATED 199 10^3/uL (150-450); RED BLOOD COUNT 3.03 10^6/uL (4.00-5.40); WHITE BLOOD COUNT 8.2 10^3/uL (4.0-10.0)
[2018-07-03 06:26] LABS: ALBUMIN 2.2 GM/DL (3.2-5.2); BILIRUBIN,TOTAL 0.5 MG/DL (0.2-1.0); CALCIUM LEVEL 8.3 MG/DL (8.5-10.1); CREATININE FOR GFR 5.06 MG/DL (0.55-1.30); POTASSIUM SERUM 4.7 MEQ/L (3.5-5.1); TOTAL PROTEIN 6.2 GM/DL (6.4-8.2)
[2018-07-03] MEDS: HumaLOG INSULIN (NovoLOG) PER UNIT SC SCH ×4 (06:43→21:00)
[2018-07-03] MEDS: HEPARIN SOD (PORCINE) 5000 UNITS/ML VIAL SQ SCH ×2 (08:56→22:31)
[2018-07-03] MEDS: PATIROMER SORBITEX CALCIUM 8.4 GM POWDER PACKET (VELTASSA) PO SCH (08:57)
[2018-07-03] MEDS: NEPHRO-VIT TAB (NEPHROCAPS) PO SCH (08:57)
[2018-07-03] MEDS: valACYclovir HCL 500 MG TAB PO SCH (08:57)
[2018-07-03] MEDS ORDERED: LEVEMIR (INSULIN DETEMIR) 1 UNITS/0.01ML SC SCH (09:00)
--- NOTE | 2018-07-03 09:37 | IPNPDOC ---
Date Seen The patient was seen on 07/03/18. Progress Note HPI: 42year oldF with a past medical history significant for ESRD HD as per Nephrology MWF admitted to [facility] with rash left forearm, the left arm axillary region and left breast and upper abdominal region. When she initially noticed the rash, she reported there was no pruritus at the site of the erythema, no drainage or pus. She states she had some burning pain in the left upper extremities at the site of the rash. She states she has had edema of the LUE on and off since she had an infiltration s/p HD of her LUE in January. She states she was scheduled for a procedure with Dr Lagnston in [place] 07/05/18. Vascular surgery was consulted to evaluate Lt AVF stenosis. The pt is S/P Fistulogram. Pt states LUE edema has been improved over weekend. Rash LUE/Chest/flank area is improving per pt. Denies any fevers, chills, weakness, fatigue, Headache, Chest Pain, Shortness of breath, cough, palpitations, abdominal pain, N/V/D or changes in bowel or bladder habits. 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 At baseline, very weak almost wheelchair bound. PAST SURGICAL HISTORY: Removal of cataract bilaterally. Left fifth toe amputation. Left arm fistula. Left eye surgery. Kidney and pancreas transplant January 2017. PE: GEN: 42yoF, appears stated age. No acute distress. Alert and oriented x 3. HEENT: Normocephalic, atraumatic. Moist mucous membranes. CHEST: Regular rate and rhythm, +S1, +S2 LUNGS: Clear to auscultation bilaterally. No wheezes, rales, or rhonchi. ABD: Round, soft, non-tender, non-distended. +Bowel sounds throughout. EXT: Pulses 2+ bilaterally dorsalis pedis and radial. No lower extremity edema appreciated. SKIN: diffuse papular rash with erythema noted LUE extending to left axilla, left chest/flank area and left breast area. No intact vesicles noted. few excoriated areas. AVF LUE, pt with MIGUEL wrap on LUE. LUE edema improved. NEURO: Alert and oriented x 3. Cranial nerves III-XII are intact. No focal deficits appreciated. A&P: 42year oldF with a past medical history significant for ESRD HD as per Nephrology MWF admitted to [facility] with rash left forearm, the left arm axillary region and left breast and upper abdominal region. When she initially noticed the rash, she reported there was no pruritus at the site of the erythema, no drainage or pus. She states she had some burning pain in the left upper ex tremities at the site of the rash. She states she has had edema of the LUE on and off since she had an infiltration s/p HD of her LUE in January. She states she was scheduled for a procedure with Dr Langston in [place] 07/05/18. Lt AVF stenosis. S/P fistulogram as per Dr Jade 06/30/18. LUE rash/cellulitis. mgmt as per primary team. IV Vanco. Valtrex for possible Zoster. ESRD. HD mgmt as per Nephrology. HD 07/02/18, pt states no problems with AVF access. DM SSI. Depression Lexapro DVT prophylaxis. SQ Heparin A-FIB/CHADSVASC A-FIB History Current/History of A-Fib/PAF?: No VS, I&O, 24H, Fishbone Vital Signs/I&O Vital Signs Date Time Temp Pulse Resp B/P (MAP) Pulse Ox O2 Delivery O2 Flow Rate FiO2 07/03/18 06:00 97.8 87 16 151/68 (95) 94 1.0 06/29/18 23:45 Nasal Cannula I&O- Last 24 Hours up to 6 AM 07/03/18 06:00 Intake Total 1400 ml Output Total 0 ml Balance 1400 ml Laboratory Data 24H LABS Laboratory Tests 2 07/02/18 12:20: Bedside Glucose (Misc Panel) 437H 07/02/18 17:01: Bedside Glucose (Misc Panel) 263H 07/02/18 20:54: Bedside Glucose (Misc Panel) 257H 07/03/18 05:43: Nucleated Red Blood Cells % (auto) 0.0, Anion Gap 9, Glomerular Filtration Rate 10.0L, Blood Urea Nitrogen 68#H, Creatinine 5.06H, Sodium Level 131L, Potassium Level 4.7, Chloride Level 95L, Carbon Dioxide Level 27, Calcium Level 8.3L, Aspartate Amino Transf (AST/SGOT) 24, Alanine Aminotransferase (ALT/SGPT) 16, Alkaline Phosphatase 326H, Total Bilirubin 0.5, Total Protein 6.2L, Albumin 2.2L, Albumin/Globulin Ratio 0.55L CBC/BMP Laboratory Tests 07/03/18 05:43 Red Blood Count 3.03 L, Mean Corpuscular Volume 108.3 H, Mean Corpuscular Hemoglobin 34.3 H, Mean Corpuscular Hemoglobin Concent 31.7 L, Red Cell Dist ribution Width 14.6 H, Calcium Level 8.3 L, Aspartate Amino Transf (AST/SGOT) 24, Alanine Aminotransferase (ALT/SGPT) 16, Alkaline Phosphatase 326 H, Total Bilirubin 0.5, Total Protein 6.2 L, Albumin 2.2 L Microbiology Microbiology 06/29/18 Blood Culture - Preliminary, Resulted No Growth after 72 hours. All specime... 06/29/18 Blood Culture - Final, Complete Staphylococcus Aureus 06/30/18 Wound Culture - Final, Complete Staphylococcus Aureus Carolina Aguilar July 03, 2018 09:37
--- NOTE | 2018-07-03 12:00 | IPNPDOC ---
Text Note Date of Service The patient was seen on 07/03/18. NOTE Subjective: Rash seems to be improving swelling better with the compression ba ndage, No fever or chills, no chest pain or sob, no abdominal pain , nausea or voiting. Sugars very high today. Insulin dosage increased. PHYSICAL EXAM: VITAL: as below GENERAL: Patient is alert and oriented in no acute distress. HEENT: Head normocephalic, atraumatic. Conjunctiva was grossly unremarkable. No scleral icterus. HEART: Regular rate and rhythm. Normal S1, S2. There is a continuous murmur heard all over the percordium related to the AVF. LUNGS: Clear to auscultation bilaterally. No rales, wheezing or ronchi. Normal airway entry. ABDOMEN: Soft. Bowel sounds auscultated in all four quadrants. No obvious guarding or distention. INTEGUMENTARY: Maculopapular rash with some pustules in left forearm, arm, axilla, left breast and left chest wall . Several ecchymosis noted in the lower abdomen. Mild swelling in the left upper extremities from hand to arm. Mild erythema in left forearm and arm in between the dark red maculopapular lesions. One healing crust at the left forearm about less than 1 cm x 0.5 cm. EXTREMITIES: Radial pulses palpated bilaterally and equal. Left 5th toe status post amputation with well-healed site. NEURO: Alert and oriented times three. No numbness or tingling in bilateral upper and lower extremities. Decreased sensation bilateral feet which patient reported to be at baseline. 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 Patient did get 2 doses of vancomycin post HD this week however the rash continued to spread. patient was admitted for Cellulitis of the left upper extremity Left upper extremity Cellulitis/ lymphangitis/ herpes or zoster infection. Blood cultures pos MSSA 1/2 bottles. Wound culture also MSSA continue vanco and valtrex. Appreciate ID consultation. 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 continue lispro, levemir. wheel chair bound Anemia of chronic disease and iron deficiency continue home meds. Dyslipidemia not on any meds. Bone mineral disease due to ESRD continue veltassa, nephrovite, ferric citrate Vit D deficiency continue home meds. Bilateral foot drop after prolong hospitalization after transplant with complicated course with cardiac arrest in the post op period was hospitalized from Feb 17 2017 to May 2017 in [place] then was in rehab till August 2017 at [facility]. DVT prophylaxis has been ordered. A-FIB/CHADSVASC A-FIB History Current/History of A-Fib/PAF?: No VS,Fishbone, I+O VS, Fishbone, I+O Laboratory Tests 07/03/18 05:43 Red Blood Count 3.03 L, Mean Corpuscular Volume 108.3 H, Mean Corpuscular Hemoglobin 34.3 H, Mean Corpuscular Hemoglobin Concent 31.7 L, Red Cell Distribution Width 14.6 H, Calcium Level 8.3 L, Aspartate Amino Transf (AST /SGOT) 24, Alanine Aminotransferase (ALT/SGPT) 16, Alkaline Phosphatase 326 H, Total Bilirubin 0.5, Total Protein 6.2 L, Albumin 2.2 L Vital Signs Date Time Temp Pulse Resp B/P (MAP) Pulse Ox O2 Delivery O2 Flow Rate FiO2 07/03/18 06:00 97.8 87 16 151/68 (95) 94 1.0 06/29/18 23:45 Nasal Cannula I&O- Last 24 Hours up to 6 AM 07/03/18 06:00 Intake Total 1400 ml Output Total 0 ml Balance 1400 ml CASSY DE OLIVEIRA MD July 03, 2018 12:00
--- NOTE | 2018-07-03 12:49 | IPN ---
DATE OF SERVICE: 07/03/2018 SUBJECTIVE: The patient is seen and examined this morning at the bedside. She denies any acute overnight events or issues. Denies any nausea, vomiting, diarrhea. She states localized pain and swelling in the left arm continues to improve. VITAL SIGNS: Temperature 97.8, pulse 87, respiratory rate 16, blood pressure 151/68, saturating 94% to 96% on 1 liter nasal cannula. Intake yesterday was 1600. Weight in the bed scale today is not recorded. GENERAL: The patient is seen sitting upright in bed. Middle-age female. Awake, alert, oriented, comfortable, in no acute distress. There is nasal cannula in place. Her tongue is moist. CARDIAC: S1, S2. Regular rate and rhythm. LUNGS: Diminished breath sounds at the bases. Otherwise, clear. No rale or rhonchi. ABDOMEN: Soft and nontender. There are bowel sounds. EXTREMITIES: There is pitting edema present in the lower extremities. There is foot drop. The left upper extremity has a dressing. The edema and redness on the left hand is improving. The fistula is palpable underneath the dressings and is patent with a palpable thrill. LABORATORIES: White count 8.2, hemoglobin 10.4, platelets 199. Sodium 131, potassium 4.7, glucose 473. INPATIENT MEDICATIONS: Reviewed by me, and the patient's insulin was adjusted per the primary team. Remainder of medications are unchanged from prior. PROBLEMS: 1. End-stage renal disease. On hemodialysis on Tuesday, , and Tuesday schedule. The patient is volume overloaded. I will try to take her for an additional hemodialysis treatment this evening if the inpatient dialysis unit can accommodate her. Otherwise, her next treatment will be on Tuesday with a goal fluid removal of 2.5-3 liters as tolerated by her hemodynamics. Continue with oral fluid restriction. There is mild hyponatremia which is secondary to elevated blood sugars and chronic renal failure. Otherwise, her electrolytes are acceptable. 2. Left upper extremity rash and cellulitis. I did review blood cultures drawn in the outpatient dialysis unit on 06/29/2018. Those cultures are negative. Blood cultures in the hospital grew methicillin-susceptible Staphylococcus aureus (MSSA) in one out of two bottles. She is on renally-dosed vancomycin, and she is also continued on empiric Valtrex, and herpes simplex virus (HSV) and varicella zoster virus (VZV) polymerase chain reactions (PCRs) are pending. She is followed by infectious disease. There is associated left upper extremity swelling secondary to underlying stenosis of the fistula, as well. 3. Anemia in end-stage renal disease. Hemoglobin is stable at 10.4, and no intervention is needed at present. 4. Type 1 diabetes mellitus. The patient's blood sugars today ranging from 300s-400s, and her long-acting insulin has been adjusted by the primary team.
[2018-07-03 13:00] VITALS: BP 165/80
[2018-07-03] MEDS: **VANCO AFTER HD** MISC XX SCH (13:53)
[2018-07-03 14:40] LABS: ABG BASE EXCESS -1.8 (-2.0-2.0); ABG HCO3 23.6 MEQ/L (22.0-26.0); ABG PARTIAL PRESSURE CO2 42.3 mmHg (35.0-45.0); ABG PARTIAL PRESSURE O2 103.1 mmHg (75.0-100.0); ABG TOTAL CO2 24.9 MEQ/L (22.0-29.0); ABG pH (ARTERIAL) 7.364 UNITS (7.350-7.450)
--- NOTE | 2018-07-03 18:41 | IPNPDOC ---
Text Note Date of Service The patient was seen on 07/03/18. NOTE SUBJECTIVE: Patient was examined at bedside this afternoon. She complained of tiredness. She stated that her arm pain has significantly improved. Denies chest pain, denies nausea, denied vomiting, denies changes in vision. Denies any recent illness. Denies shortness of breath, or difficulty breathing. He was afebrile overnight, denied any purulent drainage from her cellulitis. OBJECTIVE: VITALS: See Below GEN: Alert, orientated, no confusion NECK: Supple. HEART: Regular rate and rhythm. No murmur. Normal S1, S2. LUNGS: Clear to auscultation bilaterally. No rales, wheezing or rhonchi. Normal airway entry. ABDOMEN: Soft. Bowel sounds auscultated in all four quadrants. Bruising from insulin injection, surgical scar noted on midline on abdomen. INTEGUMENTARY: Significantly improved cellulitis, no vesicles noted, no purulent drainage. Skin color is no longer purple, there is no erythema, improved upper extremity edema, AV fistula has palpable thrills. No cellulitis noted. Patient's breast, no synovitis noted in patient's left axilla EXTREMITIES:Left 5th toe status post amputation LABORATORY DATA: Please see below. ASSESMENT AND PLAN: A 42-year-old female presenting with left upper extremity cellulitis Due to Staphylococcus aureus, with MSSA bacteremia. Infectious disease consulted for antibiotic management. Patient has been afebrile since presentation. Cellulitis has significantly improved. Antibiotics has been tapered down appropriately. Will DC vancomycin today and switch to cefazolin. We'll also DC patient's Valtrex today. Patient will be started on cefazolin, with discharge pending tomorrow after echocardiogram to rule out infective endocarditis. Patient can continue on cefazolin IV as outpatient therapy with 2 g on Tuesday and , along with dialysis and 3 g on Saturdays for 2 weeks due to her bacteremia VS,Ahmet, I+O VS, Ahmet, I+O Laboratory Tests 07/03/18 05:43 Red Blood Count 3.03 L, Mean Corpuscular Volume 108.3 H, Mean Corpuscular Hemoglobin 34.3 H, Mean Corpuscular Hemoglobin Concent 31.7 L, Red Cell Distribution Width 14.6 H, Calcium Level 8.3 L, Aspartate Amino Transf (AST/SGOT) 24, Alanine Aminotransferase (ALT/SGPT) 16, Alkaline Phosphatase 326 H, Total Bilirubin 0.5, Total Protein 6.2 L, Albumin 2.2 L Vital Signs Date Time Temp Pulse Resp B/P (MAP) Pulse Ox O2 Delivery O2 Flow Rate FiO2 07/03/18 13:00 96.9 74 16 165/80 (108) 20 1.0 06/29/18 23:45 Nasal Cannula I&O- Last 24 Hours up to 6 AM 07/03/18 06:00 Intake Total 1400 ml Output Total 0 ml Balance 1400 ml GME ATTESTATION GME ATTESTATION My faculty preceptor for this patient encounter was physically present during the encounter and was fully available. All aspects of the patient interview, examination, medical decision making process, and medical care plan development were reviewed and approved by the faculty preceptor. The faculty preceptor is aware and concurs with the plan as stated in the body of this note and will attest to such by his/her cosignature. NAZANIN FELIX DO July 03, 2018 18:40 Rand Olsen MD July 03, 2018 22:05
[2018-07-03 22:00] VITALS: BP 144/65
[2018-07-03] MEDS: ESCITALOPRAM OXALATE 10 MG TAB (LEXAPRO) PO SCH (22:31)
[2018-07-04 00:07] LABS: ANCA-ATYPICAL <1:20 titer (Neg:<1:20); CYTOPLASMIC NEUTROP AB ANCA-C <1:20 titer (Neg:<1:20); PERINUCLEAR AB ANCA-P <1:20 titer (Neg:<1:20)
[2018-07-04] MEDS: ESCITALOPRAM OXALATE 10 MG TAB (LEXAPRO) PO SCH ×2 (05:15→20:44)
[2018-07-04] MEDS: NEPHRO-VIT TAB (NEPHROCAPS) PO SCH (05:15)
[2018-07-04] MEDS: HEPARIN SOD (PORCINE) 5000 UNITS/ML VIAL SQ SCH ×2 (05:16→20:44)
[2018-07-04 06:00] VITALS: BP 146/65
[2018-07-04 07:16] LABS: HEMATOCRIT 32.1 % (36.0-47.0); HEMOGLOBIN 10.5 g/dl (12.0-15.5); MEAN CORPUSCULAR HGB CONC 32.7 g/dl (32.0-36.5); PLATELET COUNT, AUTOMATED 218 10^3/uL (150-450); WHITE BLOOD COUNT 9.3 10^3/uL (4.0-10.0)
[2018-07-04 07:38] LABS: ALBUMIN 2.3 GM/DL (3.2-5.2); BILIRUBIN,TOTAL 0.5 MG/DL (0.2-1.0); CREATININE FOR GFR 6.55 MG/DL (0.55-1.30); GLOMERULAR FILTRATION RATE 7.4 (>58); POTASSIUM SERUM 4.7 MEQ/L (3.5-5.1); TOTAL PROTEIN 6.7 GM/DL (6.4-8.2); VANCOMYCIN RANDOM 22.6 UG/ML
[2018-07-04] MEDS ORDERED: BLOOKIT21 XX (08:49)
[2018-07-04] MEDS ORDERED: LANC30MI XX (08:49)
[2018-07-04] MEDS ORDERED: ALCOPAD25 TOP (08:49)
[2018-07-04] MEDS ORDERED: GLUC1TES2 XX (08:49)
[2018-07-04] MEDS ORDERED: PEN1MIS22 SC (08:49)
[2018-07-04] MEDS ORDERED: LEVE1INJ5 SC (08:49)
--- NOTE | 2018-07-04 09:01 | IPNPDOC ---
Text Note Date of Service The patient was seen on 07/04/18. NOTE Subjective: Still a little confused this morning. could not remember her HD da ys. DId not remember that she is supposed to be discharged today. Has not had echo yet and will not be able to get it till this evening. Sugars still very high. Rash seems to be improving. No fever or chills, no chest pain or sob, no abdominal pain , nausea or voiting. Insulin dosage increased. PHYSICAL EXAM: VITAL: as below GENERAL: Patient is alert and oriented in no acute distress. HEENT: Head normocephalic, atraumatic. Conjunctiva was grossly unremarkable. No scleral icterus. HEART: Regular rate and rhythm. Normal S1, S2. There is a continuous murmur heard all over the percordium related to the AVF. LUNGS: Clear to auscultation bilaterally. No rales, wheezing or ronchi. Normal airway entry. ABDOMEN: Soft. Bowel sounds auscultated in all four quadrants. No obvious guarding or distention. INTEGUMENTARY: Maculopapular rash with some pustules in left forearm, arm, axilla, left breast and left chest wall . Several ecchymosis noted in the lower abdomen. Mild swelling in the left upper extremities from hand to arm. Mild erythema in left forearm and arm in between the dark red maculopapular lesions. One healing crust at the left forearm about less than 1 cm x 0.5 cm. EXTREMITIES: Radial pulses palpated bilaterally and equal. Left 5th toe status post amputation with well-healed site. NEURO: Alert and oriented times three. No numbness or tingling in bilateral u pper and lower extremities. Decreased sensation bilateral feet which patient reported to be at baseline. 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 Patient did get 2 doses of vancomycin post HD this week however the rash continued to spread. patient was admitted for Cellulitis of the left upper extremity Confusion/ Toxic metabolic encephalopathy most probably due to valtrex no worsening of infection, no seizure. ABG Ok, lactate OK. Bacterimia due to MSSA awaiting echo to rule out vegetations. Left upper extremity Cellulitis/ lymphangitis Blood cultures pos MSSA 1/2 bottles. Wound culture also MSSA Cefazolin post HD. Appreciate ID consultation. 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 continue lispro, levemir. wheel chair bound Anemia of chronic disease and iron deficiency continue home meds. Dyslipidemia not on any meds. Bone mineral disease due to ESRD continue veltassa, nephrovite, ferric citrate Vit D deficiency continue home meds. Bilateral foot drop after prolong hospitalization after transplant with complicated course with cardiac arrest in the post op period was hospitalized from Feb 17 2017 to May 2017 in [place] then was in rehab till August 2017 [address] [facility]. DVT prophylaxis has been ordered. A-FIB/CHADSVASC A-FIB History Current/History of A-Fib/PAF?: No VS,Fishbone, I+O VS, Fishbone, I+O Laboratory Tests 07/04/18 06:37 Red Blood Count 3.00 L, Mean Corpuscular Volume 107.0 H, Mean Corpuscular Hemoglobin 35.0 H, Mean Corpuscular Hemoglobin Concent 32.7, Red Cell Distribution Width 14.5, Calcium Level 8.0 L, Aspartate Amino Transf (AST/SGOT) 24, Alanine Aminotransferase (ALT/SGPT) 12, Alkaline Phosphatase 314 H, Total Bilirubin 0.5, Total Protein 6.7, Albumin 2.3 L Vital Signs Date Time Temp Pulse Resp B/P (MAP) Pulse Ox O2 Delivery O2 Flow Rate FiO2 07/04/18 06:00 97.4 88 18 146/65 (92) 97 1.0 06/29/18 23:45 Nasal Cannula I&O- Last 24 Hours up to 6 AM 07/04/18 06:00 Intake Total 1070 ml Output Total 0 ml Balance 1070 ml CASSY DE OLIVEIRA MD July 04, 2018 09:01
[2018-07-04] MEDS: HumaLOG INSULIN (NovoLOG) PER UNIT SC SCH ×4 (09:35→20:44)
[2018-07-04] MEDS: LEVEMIR (INSULIN DETEMIR) 1 UNITS/0.01ML SC SCH (09:35)
--- NOTE | 2018-07-04 15:26 | IPN ---
DATE: 07/04/2018 SUBJECTIVE: The patient is seen and examined this morning at the bedside. She is not at her baseline mentation. She answers most simple questions appropriately but was not able to tell me the year and was not able to tell me the season. She did follow commands. She thought her dialysis days were Tuesday, , and Tuesday. She otherwise denies any new complaints. Her left upper extremity rash is improving. She remains afebrile and she is due for hemodialysis this afternoon. VITAL SIGNS: Temperature 97.4, pulse 88, respiratory rate 18, blood pressure 146/65, saturating 97% on one liter nasal cannula. Intake yesterday was 1170. Weight in the bed scale today is not recorded. GENERAL: The patient is seen sitting in bed, feeding herself breakfast unassisted, awake, alert, conversational and interactive, oriented to person and place but unable to tell the year and the season. There is no scleral icterus. The extraocular muscles are intact. Her tongue is moist. Her next is supple. The jugular veins are not elevated. CARDIAC: S1, S2. LUNGS: Show symmetric air entry bilaterally. No crackle, rale or wheeze. ABDOMEN: Soft and nontender. There are bowel sounds. The lower extremities show about 1+ edema bilaterally. There is a footdrop. The left upper extremity is significantly swollen. The left brachiocephalic fistula has a thrill and bruit. There is improvement in the erythema and in the maculopapular rash. NEUROLOGIC: The patient is cooperative with physical examination, follows commands without delay, answers most questions appropriately but needed prompting and was unable to answer to some simple questions as mentioned above. LABORATORY DATA: White count 9.3, hemoglobin 10.5, platelets 218. Sodium 132, potassium 4.7, glucose 345. INPATIENT MEDICATIONS: Reviewed by myself. Her insulin was adjusted by the primary team. Noted her Valtrex was discontinued and noted her vancomycin was stopped and switched to cephazolin. PROBLEMS: 1. End-stage renal disease, on hemodialysis on Tuesday, , Tuesday schedule. There is a mild hypervolemia. She is scheduled for dialysis today with goal fluid removal of 3 to 3-1/2 liters as tolerated by her hemodynamics. She continues on oral fluid restriction. Her fistula is in acceptable use despite the underlying stenosis and localized rash. There is mild hyponatremia which is secondary to elevated blood sugars and chronic renal failure and will improve with dialysis and fluid removal. Otherwise, her electrolytes are acceptable. No changes are being made to the chronic prescriptions. 2. Left upper extremity rash and cellulitis. Outpatient blood cultures from hemodialysis unit on 06/29/2018 remain negative. Inpatient blood cultures grew methicillin-sensitive Staphylococcus aureus (MSSA) in one out of two bottles. Cellulitis has improved. Infectious disease's recommendations noted. Vancomycin was stopped and switched to cephazolin and she is pending an echocardiogram. Her Valtrex was also stopped. There is no leukocytosis. 3. Anemia and end-stage renal disease. Hemoglobin 10.5 today which is optimal. No further intervention is needed. 4. Confusion, mild encephalopathy. I did not find the patient to be at her baseline mentation this morning. We will evaluate post dialysis and see if there is any improvement. Noted the Valtrex was stopped. No signs of any worsening infectious process so she is pending echocardiogram to rule out any encocarditits. 5. Type 1 diabetic with retinopathy, neuropathy and renal failure. She has had elevated blood sugars today and insulin has already been adjusted per the primary team. DISPOSITION: Pending echocardiogram and pending improvement in mentation.
[2018-07-04] MEDS: PERCOCET 5MG/325MG TAB PO PRN (20:48)
[2018-07-04 22:00] VITALS: BP 150/70
[2018-07-05 06:00] VITALS: BP 146/68
[2018-07-05 06:32] LABS: HEMATOCRIT 31.2 % (36.0-47.0); HEMOGLOBIN 10.1 g/dl (12.0-15.5); MEAN CORPUSCULAR HEMOGLOBIN 34.7 pg (27.0-33.0); MEAN CORPUSCULAR HGB CONC 32.4 g/dl (32.0-36.5); MEAN CORPUSCULAR VOLUME 107.2 fl (80.0-96.0); PLATELET COUNT, AUTOMATED 212 10^3/uL (150-450); RED BLOOD COUNT 2.91 10^6/uL (4.00-5.40); WHITE BLOOD COUNT 5.5 10^3/uL (4.0-10.0)
[2018-07-05 07:10] LABS: ALBUMIN 2.3 GM/DL (3.2-5.2); BILIRUBIN,TOTAL 0.4 MG/DL (0.2-1.0); CALCIUM LEVEL 8.2 MG/DL (8.5-10.1); CREATININE FOR GFR 4.54 MG/DL (0.55-1.30); GLOMERULAR FILTRATION RATE 11.3 (>58); POTASSIUM SERUM 3.8 MEQ/L (3.5-5.1)
[2018-07-05] MEDS: NEPHRO-VIT TAB (NEPHROCAPS) PO SCH (08:19)
[2018-07-05] MEDS: HumaLOG INSULIN (NovoLOG) PER UNIT SC SCH ×2 (08:19→12:00)
[2018-07-05] MEDS: PATIROMER SORBITEX CALCIUM 8.4 GM POWDER PACKET (VELTASSA) PO SCH (08:19)
[2018-07-05] MEDS: HEPARIN SOD (PORCINE) 5000 UNITS/ML VIAL SQ SCH (08:19)
[2018-07-05] MEDS: LEVEMIR (INSULIN DETEMIR) 1 UNITS/0.01ML SC SCH (08:20)
[2018-07-05 14:00] VITALS: BP 144/72
[2018-07-05 14:11] LABS: HSV-1 DNA Negative (Negative); HSV-2 DNA Negative (Negative); VARICELLA ZOSTER VIRUS PCR Negative (Negative)
[2018-07-05] MEDS ORDERED: DIFL150T PO (14:57)
[2018-07-05] MEDS ORDERED: INSUN SC (17:01)
--- NOTE | 2018-07-05 17:05 | DS.PDOC ---
Discharge Summary General Date of Admission June 29, 2018 at 21:43 Date of Discharge 07/05/18 Discharge Summary PROCEDURES PERFORMED DURING STAY: [None]. 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 Cardiac arrest post transplant surgery COMPLICATIONS/CHIEF COMPLAINT: Cellulitis Of Left Upper Extremity. HISTORY OF PRESENT ILLNESS: See history and physical HOSPITAL COURSE: 42 year old female with PMH of type 1 diabetes, ESRD on HD via left upper arm fistula, chronic anemia for chronic disease and iron deficiency anemia, seasonal allergies, renal vascular hypertension, dyslipidemia, diabetic retinopathy, macular degeneration, alopecia, H/o cardiac arrest in 2016 after having a failed kidney and pancreas transplant in January 2017, diabetic neuropathy, wheel chair bound presented to the hospital with a rash and swelling of the left upper extremity involving the whole LUE extending to the axilla and the left breast and chest wall first noticed 3 days prior to admission. Patient did get 2 doses of vancomycin post HD this week however the rash continued to spread. patient was admitted for Cellulitis of the left upper extremity Confusion/ Toxic metabolic encephalopathy most probably due to valtrex no worsening of infection, no seizure. ABG Ok, lactate OK. now improved after stopping it. Bacterimia due to MSSA echo no vegetations. Left upper extremity Cellulitis/ lymphangitis Blood cultures pos MSSA 1/2 bottles. Wound culture also MSSA Cefazolin post HD. Appreciate ID consultation. 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 on Novolin N at home continue it . She takes anywhere between 7 to 15 units. advised to take 7 units bid and if sugars too high or low to call pmd to adjust dose. wheel chair bound Anemia of chronic disease and iron deficiency continue home meds. Dyslipidemia not on any meds. Bone mineral disease due to ESRD continue veltassa, nephrovite, ferric citrate Vit D deficiency continue home meds. Bilateral foot drop after prolong hospitalization after transplant with complicated course with cardiac arrest in the post op period was hospitalized from Feb 17 2017 to May 2017 in [place] then was in rehab till August 2017 at [facility]. DISCHARGE MEDICATIONS: Please see below. ALLERGIES: Please see below. PHYSICAL EXAMINATION ON DISCHARGE: VITAL SIGNS: Please see below. GENERAL: Patient is alert and oriented in no acute distress. HEENT: Head normocephalic, atraumatic. Conjunctiva was grossly unremarkable. No scleral icterus. HEART: Regular rate and rhythm. Normal S1, S2. There is a continuous murmur heard all over the percordium related to the AVF. LUNGS: Clear to auscultation bilaterally. No rales, wheezing or ronchi. Normal airway entry. ABDOMEN: Soft. Bowel sounds auscultated in all four quadrants. No obvious guarding or distention. INTEGUMENTARY: Maculopapular rash with some pustules in left forearm, arm, axilla, left breast and left chest wall . Several ecchymosis noted in the lower abdomen. Mild swelling in the left upper extremities from hand to arm. Mild erythema in left forearm and arm in between the dark red maculopapular lesions. One healing crust at the left forearm about less than 1 cm x 0.5 cm. EXTREMITIES: Radial pulses palpated bilaterally and equal. Left 5th toe status post amputation with well-healed site. NEURO: Alert and oriented times three. No numbness or tingling in bilateral upper and lower extremities. Decreased sensation bilateral feet which patient reported to be at baseline. LABORATORY DATA: Please see below. ACTIVITY: [As tolerated]. DIET: Carb consistent DISPOSITION: 01 Home, Self-Care. DISCHARGE INSTRUCTIONS: Follow up with PMD in 2 weeks and nephrology DISCHARGE CONDITION: [Stable]. TIME SPENT ON DISCHARGE: Greater than 30 minutes. Vital Signs/I&Os Vital Signs Date Time Temp Pulse Resp B/P (MAP) Pulse Ox O2 Delivery O2 Flow Rate FiO2 07/05/18 14:00 97.3 71 18 144/72 (96) 94 07/05/18 06:00 2.0 06/29/18 23:45 Nasal Cannula I&O- Last 24 Hours up to 6 AM 07/05/18 06:00 Intake Total 340 ml Output Total 3000 ml Balance -2660 ml Laboratory Data Labs 24H Laboratory Tests 2 07/04/18 17:24: Bedside Glucose (Misc Panel) 120H 07/04/18 20:36: Bedside Glucose (Misc Panel) 126H 07/05/18 06:09: Nucleated Red Blood Cells % (auto) 0.0, Anion Gap 10, Glomerular Filtration Rate 11.3L, Blood Urea Nitrogen 56H, Creatinine 4.54H, Sodium Level 137, Potassium Level 3.8, Chloride Level 100, Carbon Dioxide Level 27, Calcium Level 8.2L, Aspartate Amino Transf (AST/SGOT) 33, Alanine Aminotransferase (ALT/SGPT) 12, Alkaline Phosphatase 277H, Total Bilirubin 0.4, Total Protein 6.0L, Albumin 2.3L, Albumin/Globulin Ratio 0.62L 07/05/18 11:50: Bedside Glucose (Misc Panel) 169H CBC/BMP Laboratory Tests 07/05/18 06:09 Red Blood Count 2.91 L, Mean Corpuscular Volume 107.2 H, Mean Corpuscular Hemoglobin 34.7 H, Mean Corpuscular Hemoglobin Concent 32.4, Red Cell Dist ribution Width 14.2, Calcium Level 8.2 L, Aspartate Amino Transf (AST/SGOT) 33, Alanine Aminotransferase (ALT/SGPT) 12, Alkaline Phosphatase 277 H, Total Bilirubin 0.4, Total Protein 6.0 L, Albumin 2.3 L FSBS Laboratory Tests Test 07/04/18 17:24 07/04/18 20:36 07/05/18 11:50 Range/Units Bedside Glucose (Misc Panel) 120 126 169 70-105 MG/DL Microbiology Microbiology 07/05/18 Blood Culture, Received Pending 06/29/18 Blood Culture - Final, Complete NO GROWTH AFTER 5 DAYS 06/29/18 Blood Culture - Final, Complete Staphylococcus Aureus 06/30/18 Wound Culture - Final, Complete Staphylococcus Aureus Discharge Medications Scheduled Blood Sugar Diagnostic (Advanced Glucose Test Strips) 1 Each Strip, 1 STRIP XX ASDIRECTED Ergocalciferol (Vitamin D2) (Vitamin D2) 50,000 Unit Cap, 50,000 UNIT PO 1XWK, (Reported) TUESDAY Escitalopram Oxalate (Lexapro) 10 Mg Tab, 10 MG PO QHS, (Reported) Ferric Citrate (Auryxia) 210 Mg Tab, 210 MG PO TID, (Reported) TAKES WITH MEALS Fluconazole (Diflucan) 150 Mg Tablet, 1 TAB PO ASDIRECTED for yeast infection One dose on 07/05/18 and one dose 07/08/18 Folic Acid/Vit B Complex and C (Lesly-Rocío Tablet) 1 Tab Tab, 1 TAB PO DAILY, (Reported) Insulin Human NPH (Novolin N) 100 Unit/1 Ml Vial, 7 UNITS SC BID before breakfast and before dinner Patiromer Calcium Sorbitex (Veltassa) 8.4 Gm Pow, 8.4 GM PO 4XWK, (Reported) TUESDAY, TUESDAY, TUESDAY AND TUESDAY (NON-DIALYSIS DAYS) Allergies Coded Allergies: No Known Allergies (Unverified , 07/25/17) CASSY DE OLIVEIRA MD July 05, 2018 17:05
--- NOTE | 2018-07-05 21:40 | ECHO ---
DATE OF PROCEDURE: 07/05/2018 AGE: 42 GENDER: Female HEIGHT: 64 inches WEIGHT: 145 pounds BODY SURFACE AREA: 1.71 m2 PATIENT LOCATION: Inpatient, [address] [place] [address], room 5135 REFERRING PHYSICIAN: Rand Olsen MD INDICATION: Murmur. 2-D MEASUREMENTS: RV: 4.6 cm LV: 4.4 cm Septum: 1.2 cm Posterior wall: 1.2 cm Aortic root: 3.8 cm LA: 4.0 cm LVEF: 70% DOPPLER MEASUREMENTS: AV: 2.0 m/s LVOT: 1.6 m/s LVOT diameter: 2.0 cm Mean AV systolic gradient: 7 mmHg. MV-E: 130, A: 110, EA ratio: 1.1 Early mitral deceleration time: 225 ms E prime: 6.5, A prime: 8, E/E prime ratio: 19.3 PCWP: 25 mmHg PV: 0.8 m/s Pulmonary artery acceleration time: 99 ms RVSP: 55 mmHg IVC: 2.20 cm COMMENTS Normal sinus rhythm without intraventricular conduction disturbance. M-mode and two-dimensional echocardiography was performed with pulsed, continuous wave, color flow and tissue Doppler studies. Mild concentric left ventricle hypertrophy with hyperkinetic wall motion. Mildly dilated left atrium with Doppler evidence of an impairment of LV diastolic function and significantly elevated estimated mean left atrial pressure. At least mildly dilated right heart chambers with slight hypokinesis of right ventricular free wall motion and Doppler evidence of at least moderately severe pulmonary hypertension. Mildly dilated inferior vena cava with reduced respiratory collapse in keeping with an elevated central venous pressure/right heart failure. Normal-appearing aortic valve and function. Slight thickening of the subvalvular structures of the mitral valve posteriorly without inflow tract obstruction and only trace insufficiency. Normal appearing tricuspid valve with moderately severe tricuspid insufficiency. No apparent intracardiac mass or pericardial effusion.
--- NOTE | 2018-07-06 08:24 | IPN ---
DATE OF SERVICE: 07/05/2018 SUBJECTIVE: The patient is seen and examined this morning at the bedside. She denies any overnight complaints or events. There is no further confusion noted today. She was oriented and discharge is pending completion of echocardiogram. She tolerated dialysis yesterday with 3 liters of fluid removed. VITAL SIGNS: Temperature 97.4, pulse 73, respiratory rate 18, blood pressure 146/68, saturating 94% on room intake. Intake yesterday was not fully recorded. Dialysis yesterday removed 3 liters. There were four bowel movements recorded yesterday. GENERAL: The patient is seen sitting in bed, awake, alert, oriented, in no acute distress. Good spirits. Tongue is moist. Neck is supple. The jugular veins are not elevated. There is alopecia. Heart sounds are regular. S1, S2. LUNGS: Clear to auscultation bilaterally. No rale, crackle, or wheezing. ABDOMEN: Soft and nontender. There are bowel sounds. The lower extremities show 1+ edema. The left upper extremity shows improvement in swelling. The left upper extremity fistula is patent with thrill and bruit. The erythema and the maculopapular lesions are improving. NEUROLOGIC: She is oriented times three. Answers questions appropriately, interactive and conversational. LABORATORY DATA: White count 5.5, hemoglobin 10.1, platelets 212. Sodium 137, potassium 3.8. MICROBIOLOGY: There was a repeat blood culture that was drawn this morning that is pending. INPATIENT MEDICATIONS: Reviewed by myself and no change from prior. She is off of the vancomycin. She has switched over to cephazolin 2 grams on Tuesdays and post dialysis and 3 grams on Saturdays with a completion date of July 20. Echocardiogram today showed no apparent intracardiac mass or pericardial effusion, diastolic dysfunction, moderately severe pulmonary hypertension and elevated central venous pressure. PROBLEMS: 1. End-stage renal disease, on hemodialysis on Tuesday, , Tuesday schedule. She will be dialyzed tomorrow as an outpatient. She has arranged from cephazolin with hemodialysis for the next 2 weeks as recommended by infectious diseases. She will followup with vascular as an outpatient regarding the stenosis of the left upper extremity fistula. Her electrolytes are otherwise accetable. 2. Diastolic congestive heart failure with mild decompensation. Fluid status is regulated principally by dialysis. We will continue to removed at least 3 liters with each treatment as tolerated by hemodynamics and further management of her volume status will be in the outpatient hemodialysis unit. 3. Left upper extremity cellulitis. Blood cultures positive for methicillin-sensitive Staphylococcus aureus (MSSA) in one out of two bottles. Wound culture also with MSSA. Cephazolin has been arranged post dialysis with the end date of July 20 as per infectious diseases recommendations. Her echocardiogram was negative for vegetation. 4. Anemia of chronic disease and iron deficiency. Her hemoglobin is 10.1 today which is optimal. She will continue with anemia protocol in the outpatient unit.
== END 2018-07-05 16:50 | disposition home or self-care (01) | DRG 602 ==
LOC: M ED 18:02 → M ED INP 21:43 → M MS5PR 06-30 00:10
PROVIDERS: ADMIT Internal Medicine; ATTEND Internal Medicine Nephrology
PROC: 5A1D70Z Performance of Urinary Filtration, Intermittent, Less than 6 Hours Per Day (ICD-10-PCS; principal; 2018-07-01)
DX: L03.114 Cellulitis of left upper limb (principal); N18.6 End stage renal disease; G92 Toxic encephalopathy; B01.9 Varicella without complication; R78.81 Bacteremia; E10.311 Type 1 diabetes mellitus with unspecified diabetic retinopathy with macular edema; E10.21 Type 1 diabetes mellitus with diabetic nephropathy; B00.9 Herpesviral infection, unspecified; E10.40 Type 1 diabetes mellitus with diabetic neuropathy, unspecified; D63.1 Anemia in chronic kidney disease; E78.5 Hyperlipidemia, unspecified; H35.30 Unspecified macular degeneration; M21.371 Foot drop, right foot; M21.372 Foot drop, left foot; R26.89 Other abnormalities of gait and mobility; E55.9 Vitamin D deficiency, unspecified; Z79.899 Other long term (current) drug therapy; I15.0 Renovascular hypertension; F32.9 Major depressive disorder, single episode, unspecified; Z91.19 Patient's noncompliance with other medical treatment and regimen; L65.9 Nonscarring hair loss, unspecified; E87.5 Hyperkalemia; B95.61 Methicillin susceptible Staphylococcus aureus infection as the cause of diseases classified elsewhere

== ENCOUNTER 2018-11-15 14:07 | Inpatient (IN) | payer MEDICARE, BC ==
[~2018-11-15] VITALS: Ht 162.6 cm; Wt 69.6 kg
[~2018-11-15 14:07] MED LIST changes: +ALCOPAD25 TOP; -ASPI-222 PO; +ASPI-527 PO; +DIFL150T PO; +INSUN SC; +PEN1MIS22 SC
[2018-11-15 16:14] LABS: BASO # 0.1 10^3/uL (0.0-0.2); BASO % 0.8 % (0.0-1.0); EOS # 0.1 10^3/uL (0.0-0.5); EOS % 1.8 % (0.0-3.0); HEMATOCRIT 33.7 % (36.0-47.0); HEMOGLOBIN 11.3 g/dl (12.0-15.5); LYMPH # 0.8 10^3/uL (1.5-5.0); LYMPH % 9.6 % (24.0-44.0); MEAN CORPUSCULAR HGB CONC 33.5 g/dl (32.0-36.5); MEAN CORPUSCULAR VOLUME 107.3 fl (80.0-96.0); MONO # 0.8 10^3/uL (0.0-0.8); MONO % 10.3 % (0.0-5.0); NEUTROPHILS % 77.1 % (36.0-66.0); PLATELET COUNT, AUTOMATED 169 10^3/uL (150-450); RED BLOOD COUNT 3.14 10^6/uL (4.00-5.40); WHITE BLOOD COUNT 7.8 10^3/uL (4.0-10.0)
[2018-11-15 16:18] LABS: VENOUS BASE EXCESS -6.1 (-2.0-2.0); VENOUS HCO3 21.5 MEQ/L (23.0-27.0); VENOUS O2 SATURATION 65.5 % (60.0-80.0); VENOUS PARTIAL PRESSURE CO2 51.6 mmHg (38.0-50.0); VENOUS PARTIAL PRESSURE O2 44.2 mmHg (30.0-50.0); VENOUS PH 7.238 UNITS (7.330-7.430); VENOUS STANDARD HCO3 18.9 MEQ/L; VENOUS TOTAL CO2 23.1 MEQ/L (24.0-28.0)
--- NOTE | 2018-11-15 16:52 | REP ---
HISTORY: History of DKA. COMPARISON: Multiple, the latest 06/29/2018. The technique utilized in obtaining the radiograph has magnified the cardiac silhouette and accentuated the interstitial markings. There is a persistent opacity in the right lower lobe which has changed little compared to the prior exam. The cardiomediastinal silhouette is unchanged. There is mild cardiomegaly accentuated by technique with left ventricular configuration. The left lung is clear and stable. The left CP angle is sharp. There is no change in the osseous structures. IMPRESSION: Persistent right lower lobe opacity as described above. Electronically Signed by Elvis Pfeiffer DO 11/15/2018 05:26 P
[2018-11-15 16:54] LABS: ACETONE/KETONE 0.95 MG/DL (<2.81); ALBUMIN 3.3 GM/DL (3.2-5.2); ALT/SGPT 41 U/L (12-78); BILIRUBIN,DIRECT 0.3 MG/DL (0.0-0.2); BILIRUBIN,TOTAL 0.5 MG/DL (0.2-1.0); BLOOD UREA NITROGEN 118 MG/DL (7-18); CARBON DIOXIDE LEVEL 25 MEQ/L (21-32); CHLORIDE LEVEL 93 MEQ/L (98-107); CK-MB VALUE MASS 6.5 NG/ML (<3.6); CPK CREATINE PHOSPHOKINASE 109 U/L (26-192); CREATININE FOR GFR 7.15 MG/DL (0.55-1.30); ETHYL ALCOHOL (ETHANOL) < 0.003 % (0.000-0.010); GLOMERULAR FILTRATION RATE 6.7 (>58); GLUCOSE, FASTING 112 MG/DL (70-100); LIPASE 56 U/L (73-393); MAGNESIUM LEVEL 3.4 MG/DL (1.8-2.4); MB/CK RELATIVE INDEX 5.96 (< OR =4); POTASSIUM SERUM 6.7 MEQ/L (3.5-5.1); SODIUM LEVEL 132 MEQ/L (136-145); TOTAL PROTEIN 6.6 GM/DL (6.4-8.2); TROPONIN I 0.13 NG/ML (< 0.10)
[2018-11-15 17:25] LABS: OSMOLALITY SERUM 319 MOSM/KG (275-295)
[2018-11-15] MEDS ORDERED: INSUNSD SC ×2 (18:15)
[2018-11-15] MEDS ORDERED: INSUHUMDS SC (18:15)
[2018-11-15] MEDS ORDERED: ROCA0.5C PO (18:15)
[2018-11-15] MEDS ORDERED: ACETAMINOPHEN TAB 650MG DOSE (2X325MG) PO PRN (18:30)
[2018-11-15 18:46] LABS: HEMOGLOBIN A1c 9.5 %
--- NOTE | 2018-11-15 19:47 | HPEPDOC ---
[facility] Medical History & Physical Date of Admission Nov 15, 2018 Date of Service: Nov 15, 2018 History and Physical CHIEF COMPLAINT: [missed HD] HISTORY OF PRESENT ILLNESS: Patient is a 43-year-old female with a past medical history of end-stage renal disease on dialysis Tuesday, and Tuesday, type 1 diabetes, hypertension and hyperlipidemia who presents to [facility] emergency room due to missed HD. Her last HD was on Tuesday. She went today for HD , but said she just didn't feel well so she asked to be taken to the ER. She stated that she has been having diarrhea since Tuesday evening, associated symptoms nausea, nonbilious vomiting and abd pain. She denied fever, chills, chest pain and sob. Denied recent travel or sick contact. Said she has had similar symptoms in the past when she had the stomach flu. PAST MEDICAL HISTORY: Type 1 diabetes diagnosed at age 21. History of diabetic retinopathy. Iron deficiency anemia. End-stage renal failure due to type 1 diabetes on dialysis. Renovascular hypertension. Hyperlipidemia. Macrocytosis. Diabetic retinopathy associated with type 1 diabetes. Macular edema/macular degeneration. Type I diabetes with vitreous hemorrhage of left eye. Alopecia. Abnormal uterine bleeding. PAST SURGICAL HISTORY: Removal of cataracts bilateral, July 2009. Left foot 5th toe amputation by Dr. Meneses, 10/25/2013. Fistula, left arm, 12/12/2014. Dialysis catheter removed April 2015. Kidney and pancreas transplant February 15, 2017. MEDICATIONS: -see below ALLERGIES: No known drug allergies. SOCIAL HISTORY: Patient lives at home with . Denies tobacco use, alcohol use or recreational drug use. FAMILY HISTORY: Patient denies any family history of rheumatology disease or autoimmune disease that she knows of besides her own type 1 diabetes. Father has an unspecified thyroid disease and type 2 diabetes. ROS All 10 points ROS are negative except for what stated in HPI PHYSICAL EXAMINATION: GENERAL: Well-appearing, alert and oriented, in no acute distress. HEENT normocephalic , atraumatic, PERRLA, EOMI, neck supple, no enlarged thyroid, no tenderness , no lymphadenopathy VITAL SIGNS: Afebrile, vital signs stable. CARDIOVASCULAR: Regular rate and rhythm, no murmurs , rubs or gallops , no chest wall tenderness , left AVF , + LE edema with warmth and erythema RESP LCTAB , no wheezes, crackles or rhonchi , no fremitus ABDOMEN: + bowel sounds, Soft, nontender, no distended , no organomegaly EXTREMITIES: moves extremities voluntarily, no tenderness, or swelling, normal strength , left 5th digit amputation, right big toe tip dry gangrene SKIN- breaks on the right LE , very dry LE NEURO cn 2-12 intact, no foal deficit, AOAx3 Psych- normal mood and affect , good judgement and insight Assessment and PLan MIssed HD - with met acidosis and Hyperkalemia - plan for HD today - nephro consult Gastroeneteritis f/u GI panel encourage po intake right toe ulcer//dry gangrene podiatry consult dvt ppx full code , from home Vital Signs Vital Signs Date Time Temp Pulse Resp B/P (MAP) Pulse Ox O2 Delivery O2 Flow Rate FiO2 11/15/18 18:52 59 100 11/15/18 18:45 174/84 (114) 11/15/18 14:07 97.8 16 Room Air Laboratory Data Labs 24H Laboratory Tests 2 11/15/18 16:05: Immature Granulocyte % (Auto) 0.4, White Blood Count 7.8, Red Blood Count 3.14L, Hemoglobin 11.3L, Hematocrit 33.7L, Mean Corpuscular Volume 107.3H, Mean Corpuscular Hemoglobin 36.0H, Mean Corpuscular Hemoglobin Concent 33.5, Red Cell Distribution Width 14.9H, Platelet Count 169, Neutrophils (%) (Auto) 77.1H, Lymphocytes (%) (Auto) 9.6L, Monocytes (%) (Auto) 10.3H, Eosinophils (%) (Auto) 1.8, Basophils (%) (Auto) 0.8, Neutrophils # (Auto) 6.0, Lymphocytes # (Auto) 0.8L, Monocytes # (Auto) 0.8, Eosinophils # (Auto) 0.1, Basophils # (Auto) 0.1, Nucleated Red Blood Cells % (auto) 0.0, Blood Gas Bicarbonate Standard 18.9, Venous Blood pH 7.238L, Venous Blood Partial Pressure CO2 51.6H, Venous Blood Partial Pressure O2 44.2, Venous Blood Total Carbon Dioxide 23.1L, Venous Blood HCO3 21.5L, Venous Blood Oxygen Saturation 65.5, Venous Blood Base Excess -6.1L, Anion Gap 14, Glomerular Filtration Rate 6.7L, Estimated Mean Plasma Glucose 226H, Hemoglobin A1c 9.5, Osmolality 319H, Calcium Level 8.0L, Magnesium Level 3.4H, Aspartate Amino Transf (AST/SGOT) 25, Alanine Aminotransferase (ALT/SGPT) 41, Alkaline Phosphatase 242H, Total Bilirubin 0.5, Direct Bilirubin 0.3H, Total Creatine Kinase 109, Creatine Kinase MB 6.5H, Creatine Kinase MB Relative Index 5.96H, Troponin I 0.13H, Total Protein 6.6, Albumin 3.3, Albumin/Globulin Ratio 1.00, Lipase 56L, Ethyl Alcohol Level < 0.003, B-Hydroxybutyrate 0.95 11/15/18 16:11: Bedside Glucose (Misc Panel) 108H CBC/BMP Laboratory Tests 11/15/18 16:05 Red Blood Count 3.14 L, Mean Corpuscular Volume 107.3 H, Mean Corpuscular Hemoglobin 36.0 H, Mean Corpuscular Hemoglobin Concent 33.5, Red Cell Distribut ion Width 14.9 H, Neutrophils (%) (Auto) 77.1 H, Lymphocytes (%) (Auto) 9.6 L, Monocytes (%) (Auto) 10.3 H, Eosinophils (%) (Auto) 1.8, Basophils (%) (Auto) 0.8, Neutrophils # (Auto) 6.0, Lymphocytes # (Auto) 0.8 L, Monocytes # (Auto) 0.8, Eosinophils # (Auto) 0.1, Basophils # (Auto) 0.1 Microbiology Microbiology 11/15/18 Blood Culture, Received Pending 11/15/18 Blood Culture, Received Pending Home Medications Scheduled Calcitriol (Rocaltrol) 0.5 Mcg Capsule, 0.5 MCG PO 3XW TAKEN ON DIALYSIS DAYS, , SAT Ergocalciferol (Vitamin D2) (Vitamin D2) 50,000 Unit Cap, 50,000 UNIT PO 3XW GIVEN AFTER DIALYSIS TUE, , TUE Escitalopram Oxalate (Lexapro) 10 Mg Tab, 10 MG PO QHS Ferric Citrate (Auryxia) 210 Mg Tab, 210 MG PO TID TAKES WITH MEALS Folic Acid/Vit B Complex and C (Lesly-Rocío Tablet) 1 Tab Tab, 1 TAB PO DAILY Insulin Human Lispro (Humalog) 100 Unit/1 Ml Vial, SC ASDIRECTED PER SLIDING SCALE Insulin Human NPH (Humulin N) 100 Unit/1 Ml Vial, 15 UNITS SC QAM Insulin Human NPH (Humulin N) 100 Unit/1 Ml Vial, 10 UNITS SC QPM Patiromer Calcium Sorbitex (Veltassa) 8.4 Gm Pow, 8.4 GM PO 4XWK TUESDAY, TUESDAY, TUESDAY AND TUESDAY (NON-DIALYSIS DAYS) Allergies Coded Allergies: No Known Allergies (Unverified , 07/25/17) A-FIB/CHADSVASC A-FIB History Current/History of A-Fib/PAF?: No Current PO Anticoag Therapy: No Age/Risk Factor Scoring CHADSVASC: CHADSVASC Response (Comments) Value Age Risk Factor Age < 65 years old 0 Gender Risk Factor Female 1 Hx of CHF No 0 Hx of HTN Yes 1 Hx of Stroke/TIA/or VTE No 0 Hx of Diabetes Yes 1 Hx of Vascular Disease No 0 Total 3 Treatment Treatment ordered: NONE Reason Anticoagulant not given: Not indicated/[id number] MELO VILLASENOR MD Nov 15, 2018 19:47
[2018-11-15 22:45] VITALS: BP 182/78
[2018-11-15] MEDS: HEPARIN SOD (PORCINE) 5000 UNITS/ML VIAL SC SCH (23:02)
[2018-11-15] MEDS: DOCUSATE SODIUM 100 MG CAP PO SCH (23:02)
[2018-11-16 06:00] VITALS: BP 170/73
[2018-11-16] MEDS: HEPARIN SOD (PORCINE) 5000 UNITS/ML VIAL SC SCH ×3 (06:08→21:26)
[2018-11-16 07:09] LABS: HEMATOCRIT 30.6 % (36.0-47.0); HEMOGLOBIN 10.2 g/dl (12.0-15.5); MEAN CORPUSCULAR HEMOGLOBIN 35.7 pg (27.0-33.0); MEAN CORPUSCULAR HGB CONC 33.3 g/dl (32.0-36.5); PLATELET COUNT, AUTOMATED 147 10^3/uL (150-450); RED BLOOD COUNT 2.86 10^6/uL (4.00-5.40); WHITE BLOOD COUNT 6.2 10^3/uL (4.0-10.0)
[2018-11-16 07:39] LABS: BLOOD UREA NITROGEN 59 MG/DL (7-18); CALCIUM LEVEL 8.2 MG/DL (8.5-10.1); CARBON DIOXIDE LEVEL 17 MEQ/L (21-32); CHLORIDE LEVEL 96 MEQ/L (98-107); CREATININE FOR GFR 4.89 MG/DL (0.55-1.30); GLOMERULAR FILTRATION RATE 10.4 (>58); GLUCOSE, FASTING 354 MG/DL (70-100); MAGNESIUM LEVEL 2.6 MG/DL (1.8-2.4); POTASSIUM SERUM 4.8 MEQ/L (3.5-5.1); SODIUM LEVEL 134 MEQ/L (136-145)
[2018-11-16] MEDS ORDERED: GLUCAGON FOR INJ 1 MG VIAL (J1610) SC PRN (08:15)
[2018-11-16] MEDS ORDERED: DEXTROSE 50% 50 ML SYRINGE IV PRN (08:15)
[2018-11-16] MEDS ORDERED: GLUCOSE 4 GM CHEW TABLET PO PRN (08:15)
[2018-11-16] MEDS: HumaLOG INSULIN (NovoLOG) PER UNIT SC SCH ×2 (08:59→15:16)
[2018-11-16] MEDS: DOCUSATE SODIUM 100 MG CAP PO SCH ×2 (08:59→21:00)
[2018-11-16] MEDS ORDERED: MIDAZOLAM 10MG/5ML SYRUP PO PRN (09:00)
[2018-11-16] MEDS: HumuLIN N INSULIN (NovoLIN N) PER UNIT SC SCH (09:24)
[2018-11-16 11:39] LABS: ACETONE/KETONE > 46.00 MG/DL (<2.81)
[2018-11-16] MEDS ORDERED: HEPARIN 1,000 UNITS/ML 10ML VIAL (FOR RADIOLOGY& DIALYSIS ONLY) IV ONE (12:00)
[2018-11-16] MEDS ORDERED: DARBEPOETIN 100 MCG/0.5 ML *DIALYSIS* SYRINGE (J0882) IV SCH (12:15)
--- NOTE | 2018-11-16 12:56 | IPN ---
DATE OF SERVICE: 11/16/2018 SUBJECTIVE: The patient was seen and examined at the bedside today morning. The patient was dialyzed yesterday emergently for hyperkalemia and fluid overload. The patient reports that she is feeling better. She was found to be positive for Clostridium difficile, however, she denies any diarrhea and she reports that she has semi-formed stools. She is feeling much better today. Her glucose levels were high today morning, but she reports that she missed her insulin dose. Beta hydroxybutyrate was checked today morning which has come back as positive and she has high anion gap metabolic acidosis despite being dialyzed yesterday. OBJECTIVE: Vital Signs: Temperature is 97.9 degrees Fahrenheit. Blood pressure 170/73. Pulse is 74. Respiratory rate of 18. Saturating 92% on room air. Intake and Output: Ultrafiltration with hemodialysis was 3.5 liters yesterday. Weight in the bed scale is not available. PHYSICAL EXAMINATION: General: The patient is awake, alert, oriented times three, laying in bed in no apparent distress. Head and Neck Exam: Extraocular muscles intact. Pupils equally round and reactive to light. Mucous membranes are moist. Neck is supple. There is no jugular venous distention (JVD). Cardiovascular: S1 and S2, regular rate. 1+ edema of the bilateral lower extremities. Respiratory: Chest is clear to auscultation bilaterally. Bilateral equal air entry. No rales or rhonchi. Abdomen: Soft, positive bowel sounds. Nontender. No organomegaly. Musculoskeletal: No clubbing or cyanosis. She has a large AV fistula in the left upper arm. CITY ADMINISTRATOR: No focal deficit. Power is 5/5 in all extremities. LAB REVIEW: CBC showed a WBC of 6.2, hemoglobin 10.2, platelets of 147. BMP showed sodium 134, potassium 4.8, chloride 96, bicarb 17, anion gap 21, BUN 59, creatinine is 4.8, glucose is 354, calcium 8.2, and magnesium is 2.6. Beta hydroxybutyrate done today morning is more than 46. Microbiology: Stool is positive for C diff. CURRENT INPATIENT MEDICATIONS: The patient's medications were all reviewed by me. She is currently on insulin sliding scale and insulin NPH 15 units in the morning and 10 units in the evening. No other change in the medications today as compared with yesterday. ASSESSMENT/PLAN: 1. End-stage renal disease. Today is the patient's regular day of dialysis. She was dialyzed urgently yesterday because she missed her dialysis. I would dialyze her again today to optimize her acid base status and to put her back on her regular schedule. I will try to remove another 3-3.5 mL of fluid as tolerated by her blood pressure. 2. Diabetic ketoacidosis. The patient be beta hydroxybutyrate is very high. She has high anion gap acidosis. That all points towards a diabetic ketoacidosis. She needs to be started on insulin drip. I am going to talk to the primary medical team. Dialysis would also help improve the acidosis status, but she does need insulin and glucose monitoring. 3. Hyperkalemia. The patient was dialyzed with a 1 K bath yesterday, potassium is improved to 4.8 today. She will be dialyzed with 2 K bath. 4. Hyponatremia. The patient has hypovolemic hyponatremia. Sodium level is improving with dialysis. 5. Anemia in end-stage renal disease. Hemoglobin is 10.2 which is optimal. I am going to give her a dose of Aranesp with dialysis today.
[2018-11-16] MEDS ORDERED: KCL 20MEQ IN D5/0.45NS 1000ML 1,000 ML IV SCH (14:00)
[2018-11-16] MEDS ORDERED: INSULIN HUMAN REGULAR 100 UNITS in NS 99 ML IV SCH (14:00)
[2018-11-16 15:16] LABS: CALCIUM LEVEL 8.6 MG/DL (8.5-10.1); CREATININE FOR GFR 2.3 MG/DL (0.55-1.30); GLOMERULAR FILTRATION RATE 24.8 (>58); POTASSIUM SERUM 3.7 MEQ/L (3.5-5.1)
[2018-11-16 15:44] VITALS: BP 138/60
[2018-11-16] MEDS: INSULIN IV RATE CHANGE DOCUMENTATION ML/HR XX SCH ×3 (16:13→20:08)
[2018-11-16 17:13] LABS: ACETONE/KETONE 15.43 MG/DL (<2.81)
[2018-11-16] MEDS ORDERED: HumuLIN N INSULIN (NovoLIN N) PER UNIT SC SCH (17:30)
[2018-11-16 18:00] VITALS: BP 127/59
[2018-11-16 18:34] LABS: CALCIUM LEVEL 8.1 MG/DL (8.5-10.1); CREATININE FOR GFR 3.05 MG/DL (0.55-1.30); GLOMERULAR FILTRATION RATE 17.9 (>58); POTASSIUM SERUM 3.5 MEQ/L (3.5-5.1)
--- NOTE | 2018-11-16 18:36 | IPNPDOC ---
Date Seen The patient was seen on 11/16/18. Progress Note SUBJECTIVE: Patient was seen in dialysis today. Reported feeling better although appear somewhat lethargic. s/p HD today with improvement in electrolytes. Noted to be in DKA today with elevated AG and BHB, did not get her insulin last night. Started on insulin drip and transferred to ICU. AG had closed but still with elevated BHB, trending down 46->15. c/w Insulin drip and low rate D51/2 drip at this time, cautious to not overload volume. OBJECTIVE PHYSICAL EXAMINATION: VITAL SIGNS: Please see below. General: No acute distress, Alert, weak Eyes: Normal sclera, EOMI, MARY HENT: Atraumatic, neck supple Cardiovascular: Normal rate, normal rhythm. Pulmonary: Clear to auscultation b/l, no wheezing GI: Soft, nontender, nondistended Skin: Warm and dry Neuro: CN grossly intact. No focal deficits. Psych: oriented x 3 LABORATORY DATA, IMAGING STUDIES, MICROBIOLOGY: Please see below. DVT prophylaxis ordered?: HSQ ASSESSMENT AND PLAN: 1. ESRD w/ missed HD session - Did get HD 11/16. Electrolytes improved. - Nephrology continues to follow. 2. Gastroenteritis - Symptoms had improved and diarrhea had resolved. - GI panel + for c. diff but no longer has diarrhea. Stool are now formed, do not think patient requires treatment at this time. - c/w supportive care. 3. Type 1 Diabetes - c/w home dose NPH BID. - ISS. Monitor BS. 4. DKA - Did not get insulin the night of admission, had been resumed. - c/w insulin drip and D5 drip in ICU, low rate to avoid fluid overload in sett ing of renal disease. - follow BMPs. VS[facility] I&O[facility] Vital Signs/I&O Vital Signs Date Time Temp Pulse Resp B/P (MAP) Pulse Ox O2 Delivery O2 Flow Rate FiO2 11/16/18 15:44 97.9 70 16 138/60 (86) 98 11/15/18 14:07 Room Air I&O- Last 24 Hours up to 6 AM 11/16/18 06:00 Intake Total 120 ml Output Total 3500 ml Balance -3380 ml Laboratory Data 24H LABS Laboratory Tests 2 11/16/18 06:36: Nucleated Red Blood Cells % (auto) 0.0, Anion Gap 21H, Glomerular Filtration Rate 10.4L, Blood Urea Nitrogen 59H, Creatinine 4.89H, Sodium Level 134L, Potassium Level 4.8#, Chloride Level 96L, Carbon Dioxide Level 17L, Calcium Level 8.2L, Magnesium Level 2.6H, B-Hydroxybutyrate > 46.00H 11/16/18 13:00: Bedside Glucose (Misc Panel) 149H 11/16/18 14:40: Anion Gap 11, Glomerular Filtration Rate 24.8L, Blood Urea Nitrogen 22#H, Creatinine 2.30#H, Sodium Level 140, Potassium Level 3.7#, Chloride Level 100, Carbon Dioxide Level 29, Calcium Level 8.6, B-Hydroxybutyrate 15.43H 11/16/18 15:13: Bedside Glucose (Misc Panel) 147H 11/16/18 16:09: Bedside Glucose (Misc Panel) 177H 11/16/18 17:23: Bedside Glucose (Misc Panel) 216H 11/16/18 17:59: CBC/BMP Laboratory Tests 11/16/18 06:36 Red Blood Count 2.86 L, Mean Corpuscular Volume 107.0 H, Mean Corpuscular Hemoglobin 35.7 H, Mean Corpuscular Hemoglobin Concent 33.3, Red Cell Distribution Width 14.9 H, Calcium Level 8.2 L 11/16/18 14:40 Calcium Level 8.6 Microbiology Microbiology 11/15/18 Blood Culture - Preliminary, Resulted No growth after 24 hours . All specim... 11/15/18 Blood Culture - Preliminary, Resulted No growth after 24 hours . All specim... 11/15/18 Gastrointestinal Tract Panel (PCR) - Final, Complete Clostridium Difficile A/B ANNIE ROSEN MD Nov 16, 2018 18:36
--- NOTE | 2018-11-16 19:48 | CR ---
DATE OF CONSULTATION: 11/15/2018 REQUESTING PHYSICIAN: Dr. Winston in the emergency room. CONSULTING PHYSICIAN: Dr. Starr. REASON FOR CONSULTATION: Management of end-stage renal disease, hemodialysis and hyperkalemia. CHIEF COMPLAINT: The patient presented to the emergency room feeling weak, tired with nausea and diarrhea and missed dialysis. HISTORY OF PRESENT ILLNESS: Italia Nye is a 43-year-old female with past medical history of end-stage renal disease on hemodialysis every Tuesday, and Tuesday, type 1 diabetic, history of failed pancreas and kidney transplant, hypertension, chronically noncompliant with fluid restriction and with her medications and outpatient dialysis regimen. She missed her dialysis on Tuesday. Her last dialysis was on Tuesday so she has not been dialyzed for the last four days. She was supposed to go to the dialysis center as an outpatient as a makeup dialysis but instead of going to the outpatient dialysis center she presented to the emergency room. She reported that she was not feeling well. She was having diarrhea and nausea since Tuesday evening. Further evaluation in the emergency room showed that the patient had a potassium of 6.7 and a BUN of 118. Urgent nephrology consult was requested by the emergency room. The patient needed my immediate attention. I saw and evaluated the patient at the bedside in the evening and arranged an urgent hemodialysis to be done. The patient is being admitted under the hospitalist service. The patient reports that she also feels fluid overloaded and she requested that I would remove at least 4 liters of fluid during dialysis today. PAST MEDICAL HISTORY: 1. End-stage renal disease on hemodialysis every Tuesday, , Tuesday. 2. Type 1 diabetic since 21 years of age with multiple drug complications including diabetic retinopathy. 3. Hypertension with hypertensive heart disease. 4. Hyperlipidemia. 5. History of failed pancreas and kidney transplant. 6. Secondary hyperparathyroidism. PAST SURGICAL HISTORY: 1. Status post left upper arm arteriovenous (AV) fistula placement. 2. Status post pancreas and kidney transplant in January 2017 which failed later on and had to be removed. 3. Left foot fifth toe amputation in 2013. 4. History of bilateral cataract surgery in 2009. ALLERGIES: NO KNOWN DRUG ALLERGIES. FAMILY HISTORY: No significant family history of end-stage renal disease requiring hemodialysis. SOCIAL HISTORY: The patient lives at home with her . She denies any smoking, illicit drug abuse or alcohol abuse. REVIEW OF SYSTEMS: CONSTITUTIONAL: The patient reports feeling weak and tired. EYES: She reports diabetic retinopathy. ENT: She denies any dysphagia or odynophagia. CARDIOVASCULAR: She denies any chest pain. She does report chest pressure. RESPIRATORY: She does report mild shortness of breath and she wants fluid removed with dialysis. GASTROINTESTINAL (GI): She reports nausea and diarrhea. GENITOURINARY: She denies any dysuria or hematuria. MUSCULOSKELETAL: She denies any muscle aches and pains. SKIN: She denies any rashes or ulcers. PSYCHIATRIC: She denies any depression or anxiety at this time. ENDOCRINE: She reports a history of type 1 diabetes and secondary hyperparathyroidism. CENTRAL NERVOUS SYSTEM (ENVIRONMENTAL HEALTH AND SAFETY INTERN): She denies any strokes or seizures. HEMATOLOGY/ONCOLOGY: She denies any easy bleeding or bruising. All other review of systems is negative. PHYSICAL EXAMINATION: GENERAL: The patient is awake, alert, oriented times three, laying in bed. VITAL SIGNS: Temperature is 98 degrees Fahrenheit, blood pressure is 161/74, pulse is 59, respiratory of 18, saturating 100% on room air. HEAD AND NECK: Extraocular muscles intact. Pupils equally round and reactive to light. Mucous membranes are moist. NECK: Neck is supple. There is moderately elevated jugular venous distention (JVD). CARDIOVASCULAR: Sinus, regular rate. 1+ edema of the bilateral extremities. RESPIRATORY: Mildly decreased breath sounds at the bases, otherwise no active rales or rhonchi. ABDOMEN: Soft, obese, positive bowel sounds. Nontender. No organomegaly. MUSCULOSKELETAL: No clubbing or cyanosis. She has a large fistula in the left upper arm with positive thrill and bruit. ENVIRONMENTAL HEALTH AND SAFETY INTERN: No focal deficit, power is 5/5 in all extremities. PSYCHIATRIC: Normal mood and affect. LABORATORY REVIEW: CBC showed WBC of 7.8, hemoglobin 11.3, platelets of 169. VBG: pH of 7.23. BMP showed sodium 132, potassium 6.7, chloride 93, bicarb 25, BUN 118, creatinine is 7.1, A1c 9.5, glucose was 112. Troponin is 0.13, lipase 56, b-Type oxybutyrate is 0.95. Microbiology blood cultures are pending. IMAGING STUDIES: A chest x-ray was done in the afternoon which showed persistent right lower lobe opacity. CURRENT INPATIENT MEDICATIONS: - Tylenol as needed - heparin subcutaneously HOME MEDICATIONS: The patient's home medications include: - calcitriol 0.5 mcg by mouth three times a week - vitamin D 50,000 units - Lexapro 10 mg by mouth nightly - Auryxia 210 mg by mouth three times a day - folic acid 1 mg by mouth daily - insulin sliding scale - insulin NPH 10 units at night and 15 units in the morning - VELTASSA 8.4 grams by mouth four times a week ASSESSMENT: 43-year-old female, type 1 diabetic, end-stage renal disease on hemodialysis being admitted this time with fluid overload after missing dialysis and hyperkalemia. PLAN: 1. End-stage renal disease on hemodialysis. The patient has not been dialyzed for four days. She is emergently being dialyzed for three hours today. I will try to remove at least 3.5 kg of fluid as tolerated by her blood pressure. 2. Acute decompensated congestive heart failure. It is secondary to patient's noncompliance with dialysis and noncompliance with fluid restriction. She is at least 7 kg above her dry weight. I will try to removed 3-1/2 kg today. Continue the fluid restriction at this time. 3. Hyperkalemia. It is secondary to noncompliance with outpatient medications and noncompliance with dialysis. The patient will be dialyzed with a 1 K bath and her potassium level will improve with that. 4. Hyponatremia. The patient has hypervolemic, hyponatremia. Sodium level will improve with fluid removal. 5. Diabetes mellitus type 1.Glucose levels are controlled, b-type oxybutyrate is negative. Continue home dose of insulin sliding scale along with a long-acting insulin. 6. Anemia and end-stage renal disease. Hemoglobin is 11.3 which is optimal. No need of Aranesp administration at this time. 7. Secondary hyperparathyroidism. Continue home dose of calcitriol 0.5 mcg by mouth on her dialysis days. 8. Chronic kidney disease, mineral bone disease. The patient takes Auryxia as an outpatient as a phosphorus binders. I would give her Velphoro while she is in the hospital. Thank you for involving me in the in the care of this patient. I shall be happy to follow the patient along with you tomorrow morning.
[2018-11-16 20:15] VITALS: BP 117/55
[2018-11-16 20:22] LABS: ACETONE/KETONE 1.11 MG/DL (<2.81); CALCIUM LEVEL 7.9 MG/DL (8.5-10.1); CREATININE FOR GFR 3.23 MG/DL (0.55-1.30); GLOMERULAR FILTRATION RATE 16.7 (>58)
[2018-11-16] MEDS ORDERED: HumaLOG INSULIN (NovoLOG) PER UNIT SC SCH ×2 (21:00)
[2018-11-16] MEDS ORDERED: ESCITALOPRAM OXALATE 10 MG TAB (LEXAPRO) PO SCH (21:00)
--- NOTE | 2018-11-16 21:30 | ECGEPIP ---
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
[2018-11-16] MEDS ORDERED: INFLUENZA QUADRIVALENT PF VACCINE 0.5ML SYRINGE (90686) IM PRN (23:30)
[2018-11-17] VITALS: BP 119/56
[2018-11-17 02:26] LABS: CALCIUM LEVEL 7.9 MG/DL (8.5-10.1); CREATININE FOR GFR 3.51 MG/DL (0.55-1.30); GLOMERULAR FILTRATION RATE 15.2 (>58); POTASSIUM SERUM 4.1 MEQ/L (3.5-5.1)
[2018-11-17 04:00] VITALS: BP 149/62
[2018-11-17] MEDS: HEPARIN SOD (PORCINE) 5000 UNITS/ML VIAL SC SCH (05:14)
[2018-11-17 05:29] LABS: HEMOGLOBIN 10.6 g/dl (12.0-15.5); MEAN CORPUSCULAR HEMOGLOBIN 36.1 pg (27.0-33.0); MEAN CORPUSCULAR HGB CONC 33.1 g/dl (32.0-36.5); MEAN CORPUSCULAR VOLUME 108.8 fl (80.0-96.0); PLATELET COUNT, AUTOMATED 163 10^3/uL (150-450); RED BLOOD COUNT 2.94 10^6/uL (4.00-5.40); WHITE BLOOD COUNT 4.9 10^3/uL (4.0-10.0)
[2018-11-17 05:39] LABS: CALCIUM LEVEL 7.8 MG/DL (8.5-10.1); CREATININE FOR GFR 3.68 MG/DL (0.55-1.30); GLOMERULAR FILTRATION RATE 14.4 (>58); POTASSIUM SERUM 3.9 MEQ/L (3.5-5.1)
[2018-11-17] MEDS ORDERED: HumaLOG INSULIN (NovoLOG) PER UNIT SC SCH (07:30)
[2018-11-17 08:00] VITALS: BP 159/70
[2018-11-17] MEDS: HumuLIN N INSULIN (NovoLIN N) PER UNIT SC SCH (08:48)
[2018-11-17] MEDS: DOCUSATE SODIUM 100 MG CAP PO SCH (08:48)
--- NOTE | 2018-11-17 12:04 | DS.PDOC ---
Discharge Summary General Date of Admission Nov 15, 2018 at 18:24 Date of Discharge 11/17/18 Discharge Summary PROCEDURES PERFORMED DURING STAY: [None]. ADMITTING DIAGNOSES: 1. ESRD on HD 2. Missed HD with fluid overload and hyperkalemia 3. Gastroenteritis 4. Type 1 DM 5. HLD 6. Iron deficiency anemia DISCHARGE DIAGNOSES: 1. ESRD on HD 2. Missed HD with fluid overload and hyperkalemia 3. Gastroenteritis 4. Type 1 DM 5. HLD 6. Iron deficiency anemia 7. DKA COMPLICATIONS/CHIEF COMPLAINT: Diarrhea. HISTORY OF PRESENT ILLNESS: "Patient is a 43-year-old female with a past medical history of end-stage renal disease on dialysis Tuesday, and Tuesday, type 1 diabetes, hypertension and hyperlipidemia who presents to [facility] emergency room due to missed HD. Her last HD was on Tuesday. She went today for HD , but said she just didn't feel well so she asked to be taken to the ER. She stated that she has been having diarrhea since Tuesday evening, associated symptoms nausea, nonbilious vomiting and abd pain. She denied fever, chills, chest pain and sob. Denied recent travel or sick contact. Said she has had similar symptoms in the past when she had the stomach flu. " HOSPITAL COURSE: Patient received dialysis with improvement in symptoms and electrolytes. She had complained of nausea/vomiting and diarrhea prior to arrival but symptoms quickly improved. GI panel + for c. diff but patient no longer has diarrhea. Course of hospitalization complicated by development of DKA and was transferred to ICU for brief period of insulin drip management. Patient reported feeling much better today and ready to go home. Will discharge patient home to continue outpatient HD and to follow with PMD and Nephrology. Patient has outpatient PT planned to start next week. DISCHARGE MEDICATIONS: Please see below. ALLERGIES: Please see below. PHYSICAL EXAMINATION ON DISCHARGE: VITAL SIGNS: Please see below. General: No acute distress, Alert, weak Eyes: Normal sclera, EOMI, MARY HENT: Atraumatic, neck supple Cardiovascular: Normal rate, normal rhythm. Pulmonary: Clear to auscultation b/l, no wheezing GI: Soft, nontender, nondistended Skin: Warm and dry Neuro: CN grossly intact. Psych: oriented x 3 LABORATORY DATA: Please see below. ACTIVITY: [As tolerated]. DIET: Low sodium DISCHARGE PLAN: f/u PMD and Nephrology c/w HD as regularly scheduled DISPOSITION: Home. DISCHARGE INSTRUCTIONS: f/u PMD and Nephrology c/w HD as regularly scheduled ITEMS TO FOLLOWUP ON ON OUTPATIENT: None DISCHARGE CONDITION: [Stable]. TIME SPENT ON DISCHARGE: 33 minutes. Vital Signs/I&Os Vital Signs Date Time Temp Pulse Resp B/P (MAP) Pulse Ox O2 Delivery O2 Flow Rate FiO2 11/17/18 08:00 97.2 60 16 159/70 (99) 100 11/15/18 14:07 Room Air I&O- Last 24 Hours up to 6 AM 11/17/18 06:00 Intake Total 1079 ml Output Total 3500 ml Balance -2421 ml Laboratory Data Labs 24H Laboratory Tests 2 11/16/18 13:00: Bedside Glucose (Misc Panel) 149H 11/16/18 14:40: Anion Gap 11, Glomerular Filtration Rate 24.8L, Blood Urea Nitrogen 22#H, Creatinine 2.30#H, Sodium Level 140, Potassium Level 3.7#, Chloride Level 100, Carbon Dioxide Level 29, Calcium Level 8.6, B-Hydroxybutyrate 15.43H 11/16/18 15:13: Bedside Glucose (Misc Panel) 147H 11/16/18 16:09: Bedside Glucose (Misc Panel) 177H 11/16/18 17:23: Bedside Glucose (Misc Panel) 216H 11/16/18 17:59: Anion Gap 10, Glomerular Filtration Rate 17.9L, Blood Urea Nitrogen 27H, Creatinine 3.05H, Sodium Level 139, Potassium Level 3.5, Chloride Level 100, Carbon Dioxide Level 29, Calcium Level 8.1L 11/16/18 18:58: Bedside Glucose (Misc Panel) 225H 11/16/18 19:50: Anion Gap 13, Glomerular Filtration Rate 16.7L, Blood Urea Nitrogen 29H, Creatinine 3.23H, Sodium Level 139, Potassium Level 4.0, Chloride Level 100, Carbon Dioxide Level 26, Calcium Level 7.9L, B-Hydroxybutyrate 1.11 11/16/18 20:05: Bedside Glucose (Misc Panel) 123H 11/17/18 00:13: Bedside Glucose (Misc Panel) 173H 11/17/18 01:53: Anion Gap 12, Glomerular Filtration Rate 15.2L, Blood Urea Nitrogen 33H, Creatinine 3.51H, Sodium Level 138, Potassium Level 4.1, Chloride Level 100, Carbon Dioxide Level 26, Calcium Level 7.9L 11/17/18 03:56: Bedside Glucose (Misc Panel) 151H 11/17/18 04:51: Nucleated Red Blood Cells % (auto) 0.0, Anion Gap 11, Glomerular Filtration Rate 14.4L, Blood Urea Nitrogen 37H, Creatinine 3.68H, Sodium Level 136, Potassium Level 3.9, Chloride Level 99, Carbon Dioxide Level 26, Calcium Level 7.8L 11/17/18 08:08: Bedside Glucose (Misc Panel) 155H 11/17/18 11:34: Bedside Glucose (Misc Panel) 188H CBC/BMP Laboratory Tests 11/16/18 14:40 Calcium Level 8.6 11/16/18 17:59 Calcium Level 8.1 L 11/16/18 19:50 Calcium Level 7.9 L 11/17/18 01:53 Calcium Level 7.9 L 11/17/18 04:51 Red Blood Count 2.94 L, Mean Corpuscular Volume 108.8 H, Mean Corpuscular Hemogl obin 36.1 H, Mean Corpuscular Hemoglobin Concent 33.1, Red Cell Distribution Width 14.8 H, Calcium Level 7.8 L FSBS Laboratory Tests Test 11/16/18 13:00 11/16/18 15:13 11/16/18 16:09 11/16/18 17:23 Range/Units Bedside Glucose (Misc Panel) 149 147 177 216 70-105 MG/DL Test 11/16/18 18:58 11/16/18 20:05 11/17/18 00:13 11/17/18 03:56 Range/Units Bedside Glucose (Misc Panel) 225 123 173 151 70-105 MG/DL Test 11/17/18 08:08 11/17/18 11:34 Range/Units Bedside Glucose (Misc Panel) 155 188 70-105 MG/DL Microbiology Microbiology 11/15/18 Blood Culture - Preliminary, Resulted No growth after 24 hours . All specim... 11/15/18 Blood Culture - Preliminary, Resulted No growth after 24 hours . All specim... 11/15/18 Gastrointestinal Tract Panel (PCR) - Final, Complete Clostridium Difficile A/B Discharge Medications Scheduled Calcitriol (Rocaltrol) 0.5 Mcg Capsule, 0.5 MCG PO 3XW, (Reported) TAKEN ON DIALYSIS DAYS, TUES, TH, SAT Ergocalciferol (Vitamin D2) (Vitamin D2) 50,000 Unit Cap, 50,000 UNIT PO 3XW, (Reported) GIVEN AFTER DIALYSIS TUE, THUR, SAT Escitalopram Oxalate (Lexapro) 10 Mg Tab, 10 MG PO QHS, (Reported) Ferric Citrate (Auryxia) 210 Mg Tab, 210 MG PO TID, (Reported) TAKES WITH MEALS Folic Acid/Vit B Complex and C (Lesly-Rocío Tablet) 1 Tab Tab, 1 TAB PO DAILY, (Reported) Insulin Human Lispro (Humalog) 100 Unit/1 Ml Vial, SC ASDIRECTED, (Reported) PER SLIDING SCALE Insulin Human NPH (Humulin N) 100 Unit/1 Ml Vial, 15 UNITS SC QAM, (Reported) Insulin Human NPH (Humulin N) 100 Unit/1 Ml Vial, 10 UNITS SC QPM, (Reported) Patiromer Calcium Sorbitex (Veltassa) 8.4 Gm Pow, 8.4 GM PO 4XWK, (Reported) TUESDAY, TUESDAY, TUESDAY AND TUESDAY (NON-DIALYSIS DAYS) Allergies Coded Allergies: No Known Allergies (Unverified , 07/25/17) ANNIE ROSEN MD Nov 17, 2018 12:04
[2018-11-18] MEDS ORDERED: INFLUENZA QUADRIVALENT PF VACCINE 0.5ML SYRINGE (90686) IM ONE (09:00)
--- NOTE | 2018-11-18 13:16 | IPN ---
DATE OF SERVICE: 11/17/2018 SUBJECTIVE: The patient was seen and examined at the bedside today morning in the intensive care unit (ICU). The patient is afebrile and hemodynamically stable. Last 24-hour events were noted. I was actually called with each laboratory review. The patient developed diabetic ketoacidosis yesterday because she missed her insulin the night previously. She was dialyzed yesterday, as well. However, despite dialysis, she was in ketoacidosis. She was started on insulin drip yesterday. Serial B-hydroxybutyrate levels were monitored, and with gentle intravenous (IV) fluid hydration were taken D5 half-normal saline with 20 mEq of KCl and insulin drip, her ketoacidosis resolved, and IV fluids was stopped last night, along with IV insulin. The patient reports that she is feeling better. She has been dialyzed two days in a row for the last two days, and she denies any more episodes of diarrhea. Her glucose levels are better controlled, and she reports that she is ready to go home today. OBJECTIVE: Vital signs: Temperature is 97.2 degrees Fahrenheit, blood pressure 159/70, pulse is 60, respiratory rate of 16, saturating 100% on room air. Intake and output: There is no urine output recorded. Ultrafiltration with hemodialysis was 3.5 liters yesterday. Weight in the bed scale is 69.6 kg. PHYSICAL EXAMINATION: General: The patient is awake, alert, oriented times three, laying in bed in no apparent distress. Head and neck examination: Extraocular muscles intact. Pupils equally round and reactive to light. Mucous membranes are moist. Neck is supple. There is no jugular venous distention (JVD). Cardiovascular: S1, S2, regular rate. Trace edema of the bilateral lower extremities. Respiratory: Chest is clear to auscultation bilaterally. Bilateral equal air entry. No rales or rhonchi. Abdomen: Soft, positive bowel sounds. Nontender. No organomegaly. Musculoskeletal: She has a large AV fistula in the left upper arm. The patient has bilateral foot drops. Central nervous system (LITIGATION SUPPORT ANALYST): No focal deficit apart from bilateral foot drop. LABORATORY REVIEW: Complete blood count (CBC) showed a WBC of 4.9, hemoglobin 10.6, platelets are 163. Basic metabolic profile (BMP) showed sodium 136, potassium 3.9, chloride 99, bicarbonate 26, BUN 37, creatinine is 3.6. Latest glucose level is 188. B-hydroxybutyrate overnight was 1.11. CURRENT INPATIENT MEDICATIONS: The patient's medications were all reviewed by me. IV insulin and IV fluids have been stopped. She continues to be on NPH insulin and insulin sliding scale. ASSESSMENT AND PLAN: 1. End-stage renal disease. The patient's regular dialysis days are Tuesday, , Tuesday. She has been dialyzed two days in a row. Next hemodialysis can be done as outpatient tomorrow. The patient was advised to go on her regular dialysis day and not to miss more dialysis sessions. 2. Diabetes mellitus type 1. The patient was in diabetic ketoacidosis last night. Ketoacidosis has resolved. Acid base status is within the acceptable range. Continue home dose of insulin on discharge. The patient is tolerating oral diet. 3. Anemia in end-stage renal disease. Hemoglobin is 10.6. The patient was given Aranesp during dialysis in the hospital. Rest of the anemia management will be done as outpatient. DISPOSITION: It is okay to discharge the patient from nephrology standpoint. The patient will be dialyzed tomorrow morning. Plan of care was discussed with the hospitalist, Dr. Francine Pete.
== END 2018-11-17 12:03 | disposition home or self-care (01) | DRG 371 ==
LOC: M ED 14:07 → M ED INP 18:24 → M MS4PR 22:40 → M ICU 11-16 14:54
PROVIDERS: ADMIT Internal Medicine; ATTEND Student in an Organized Health Care Education/Training Program
PROC: 5A1D70Z Performance of Urinary Filtration, Intermittent, Less than 6 Hours Per Day (ICD-10-PCS; principal; 2018-11-15)
DX: A04.72 Enterocolitis due to Clostridium difficile, not specified as recurrent (principal); N18.6 End stage renal disease; E10.10 Type 1 diabetes mellitus with ketoacidosis without coma; I13.2 Hypertensive heart and chronic kidney disease with heart failure and with stage 5 chronic kidney disease, or end stage renal disease; E87.1 Hypo-osmolality and hyponatremia; N25.81 Secondary hyperparathyroidism of renal origin; T86.12 Kidney transplant failure; T86.891 Other transplanted tissue failure; E87.5 Hyperkalemia; E10.22 Type 1 diabetes mellitus with diabetic chronic kidney disease; L97.519 Non-pressure chronic ulcer of other part of right foot with unspecified severity; E10.621 Type 1 diabetes mellitus with foot ulcer; E78.5 Hyperlipidemia, unspecified; K52.9 Noninfective gastroenteritis and colitis, unspecified; I50.9 Heart failure, unspecified; D63.1 Anemia in chronic kidney disease; E10.319 Type 1 diabetes mellitus with unspecified diabetic retinopathy without macular edema; L65.9 Nonscarring hair loss, unspecified; H35.30 Unspecified macular degeneration; Z98.41 Cataract extraction status, right eye; Z98.42 Cataract extraction status, left eye; Z89.422 Acquired absence of other left toe(s); Z99.2 Dependence on renal dialysis; Z79.4 Long term (current) use of insulin; Z79.899 Other long term (current) drug therapy

== ENCOUNTER → 2019-02-02 | Outpatient (CLI) | payer MEDICARE, BC ==
[~2019-02-02] MED LIST changes: +INSUHUMDS SC; +ROCA0.5C PO
--- NOTE | 2019-02-02 10:28 | REP ---
Clinical: Cough. Technique: PA and lateral. Comparison: 11/15/2018. Findings: Moderate right pleural effusion with underlying consolidation has increased since prior examination. Remainder examination appears normal. Impression: Moderate right pleural effusion and right lower lobe opacities increased from prior examination. Electronically Signed by Merrick Vivar MD 02/02/2019 10:20 A
== END ==
LOC: M LRY 09:57
PROVIDERS: ATTEND Family Medicine
DX: R91.8 Other nonspecific abnormal finding of lung field (principal); J91.8 Pleural effusion in other conditions classified elsewhere; R05 Cough
CPT/HCPCS: 71046; G0463

== ENCOUNTER → 2019-05-18 | Outpatient (CLI) | payer MEDICARE, BC ==
[2019-05-18 13:29] LABS: BASO # 0.1 10^3/uL (0.0-0.2); BASO % 1.1 % (0.0-1.0); EOS # 0.3 10^3/uL (0.0-0.5); HEMATOCRIT 33.1 % (36.0-47.0); HEMOGLOBIN 10.6 g/dl (12.0-15.5); LYMPH # 1.1 10^3/uL (1.5-5.0); LYMPH % 25.3 % (24.0-44.0); MEAN CORPUSCULAR HEMOGLOBIN 35.1 pg (27.0-33.0); MEAN CORPUSCULAR VOLUME 109.6 fl (80.0-96.0); MONO # 0.4 10^3/uL (0.0-0.8); MONO % 8.4 % (0.0-5.0); NEUTROPHILS # 2.7 10^3/uL (1.5-8.5); NEUTROPHILS % 59.2 % (36.0-66.0); PLATELET COUNT, AUTOMATED 138 10^3/uL (150-450); RED BLOOD COUNT 3.02 10^6/uL (4.00-5.40); WHITE BLOOD COUNT 4.5 10^3/uL (4.0-10.0)
[2019-05-18 13:57] LABS: ERYTHROCYTE SEDIMENTATION RATE 31 mm/hr (0-20)
[2019-05-18 14:25] LABS: ALBUMIN 3.2 GM/DL (3.2-5.2); ALT/SGPT 25 U/L (12-78); BILIRUBIN,TOTAL 0.6 MG/DL (0.2-1.0); BLOOD UREA NITROGEN 37 MG/DL (7-18); C REACTIVE PROTEIN QUANTITATIV 1.48 MG/DL (0.00-0.30); CALCIUM LEVEL 10.3 MG/DL (8.5-10.1); CARBON DIOXIDE LEVEL 32 MEQ/L (21-32); CHLORIDE LEVEL 95 MEQ/L (98-107); CREATININE FOR GFR 3.69 MG/DL (0.55-1.30); GLOMERULAR FILTRATION RATE 14.3 (>58); GLUCOSE, FASTING 472 MG/DL (70-100); POTASSIUM SERUM 4.8 MEQ/L (3.5-5.1); RHEUMATOID FACTOR QUANT < 10.0 IU/ML (<15.0); SODIUM LEVEL 133 MEQ/L (136-145); TOTAL PROTEIN 6.6 GM/DL (6.4-8.2)
[2019-05-21 00:07] LABS: ANA (HEP2) Negative (.); CYCLIC CITRULLINATED PEPTIDE 7 units (0-19)
== END ==
LOC: M LAB 12:49
PROVIDERS: ATTEND Dermatology
DX: L90.8 Other atrophic disorders of skin (principal); Z79.899 Other long term (current) drug therapy

== ENCOUNTER 2019-07-14 11:36 | Inpatient (IN) | payer MEDICARE, BC ==
[~2019-07-14] VITALS: Ht 162.6 cm; Wt 65.0 kg
[~2019-07-14 11:36] MED LIST changes: +VITA-243 PO; -VITA500T PO
[2019-07-14] MEDS ORDERED: ACETAMINOPHEN TAB 650MG DOSE (2X325MG) PO ONE (12:00)
[2019-07-14] MEDS ORDERED: NS 1,000 ML IV SCH (12:06)
[2019-07-14 12:58] LABS: BASO % 0.3 % (0.0-1.0); HEMOGLOBIN 11.2 g/dl (12.0-15.5); LYMPH # 0.6 10^3/uL (1.5-5.0); LYMPH % 5.8 % (24.0-44.0); MEAN CORPUSCULAR HEMOGLOBIN 33.4 pg (27.0-33.0); MEAN CORPUSCULAR VOLUME 104.5 fl (80.0-96.0); MONO # 0.7 10^3/uL (0.0-0.8); MONO % 6.7 % (0.0-5.0); NEUTROPHILS # 8.4 10^3/uL (1.5-8.5); NEUTROPHILS % 85.9 % (36.0-66.0); PLATELET COUNT, AUTOMATED 141 10^3/uL (150-450); RED BLOOD COUNT 3.35 10^6/uL (4.00-5.40); WHITE BLOOD COUNT 9.7 10^3/uL (4.0-10.0)
[2019-07-14 13:20] LABS: INR 1.38; PARTIAL THROMBOPLASTIN TIME 29.8 SECONDS (25.0-38.4); PROTHROMBIN TIME 16.7 SECONDS (11.8-14.0)
[2019-07-14 13:31] LABS: ALBUMIN 3.5 GM/DL (3.2-5.2); BILIRUBIN,DIRECT 0.5 MG/DL (0.0-0.2); BILIRUBIN,TOTAL 1.3 MG/DL (0.2-1.0); CALCIUM LEVEL 8.6 MG/DL (8.5-10.1); CREATININE FOR GFR 4.78 MG/DL (0.55-1.30); GLOMERULAR FILTRATION RATE 10.6 (>58); MB/CK RELATIVE INDEX 2.38 (< OR =4); POTASSIUM SERUM 4.8 MEQ/L (3.5-5.1); TOTAL PROTEIN 7.2 GM/DL (6.4-8.2); TROPONIN I 0.42 NG/ML (< 0.10)
[2019-07-14] MEDS ORDERED: VITA50005 PO (13:52)
[2019-07-14] MEDS ORDERED: IBUPROFEN 600 MG TAB PO ONE (15:00)
[2019-07-14] MEDS ORDERED: cefTRIAXone SOD 1 GM in D5W MINI-BAG PLUS 50 ML IV ONE (15:45)
[2019-07-14] MEDS ORDERED: DOXYCYCLINE HYCLATE 100 MG in D5W MINI-BAG PLUS 100 ML IV ONE (15:45)
[2019-07-14] MEDS ORDERED: GLUCAGON INJ 1MG VIAL SC PRN (16:30)
[2019-07-14] MEDS ORDERED: DEXTROSE 50% 50 ML SYRINGE IV PRN (16:30)
[2019-07-14] MEDS ORDERED: GLUCOSE 4GM CHEW TABLET PO PRN (16:30)
[2019-07-14 17:43] LABS: MAGNESIUM LEVEL 2.5 MG/DL (1.8-2.4); PHOSPHORUS LEVEL 5.6 MG/DL (2.5-4.9)
[2019-07-14] MEDS: HumaLOG INSULIN (NovoLOG) PER UNIT SC SCH ×2 (17:43→21:00)
[2019-07-14 18:45] VITALS: BP 138/70
--- NOTE | 2019-07-14 18:47 | HPEPDOC ---
[facility] Medical History & Physical Date of Admission July 14, 2019 Date of Service: July 14, 2019 Primary Care Physician: TYLOR LOPEZ MD Attending Physician: HILARIA KRAFT MD History and Physical CHIEF COMPLAINT: nausea, vomiting and fevers x 3 days HISTORY OF PRESENT ILLNESS: Italia Nye is a 43 YO F with history of ESRD (on HD Tue//) and DM1 who presents with 3-4 days nausea/vomiting and fevers. She has not taken her temperature at home but feels that she has had fevers for more than 48h. Her vomitus has been nonbloody and "white and frothy." She reports that she went to dialysis this week but skipped going this morning as she was not feeling well. She has not had any sick contacts. She denies any abdominal pain or diarrhea. She has been taking all of her medications as prescribed. She denies having been ill recently. PAST MEDICAL HISTORY: Type 1 DM (diagnosed at age 21). Iron def. anemia. Seasonal allergies. Stage 5 chronic kidney disease due to type 1 diabetes mellitus. ESRD on HD (Tue, , ) Renovascular hypertension. Mixed hyperlipidemia. Macrocytosis. Diabetic retinopathy associated with type 1 diabetes mellitus, macular edema presence unspecified, unspecified retinopathy severity. Vitreous hemorrhage of left eye. Alopecia. Abnormal uterine bleeding (AUB). 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 Maternal grandmother had pancreatic cancer, M uncle with skin Cancer. ALLERGIES: Please see below. REVIEW OF SYSTEMS: CONSTITUTIONAL: Reports fevers, chills, nausea and vomiting EYES: Denies visual changes, double vision, blurry vision, floaters, or feeling like a curtain pulled down. ENT: Denies runny nose, epistaxis, sinus pain, tinnitus, sore throat, or odynophasia CARDIOVASCULAR: Denies chest pain, shortness of breath, paroxysmal nocturnal dyspnea, orthopnea, edema, or palpitations. RESPIRATORY: Denies cough, sputum production, wheezes, hemoptysis, or shortness of breath GASTROINTESTINAL: Denies abdominal pain, difficulty swallowing, loss of appetite, nausea, vomiting, diarrhea, constipation, eructation, obstipation, hematemesis, hematochezia, melena, or tenesmus GENITOURINARY: Denies hematuria, polyuria, dysuria, hesitancy, or dribbling MSK: Denies joint swelling, decreased range of motion, crepitus, or new arthritis INTEGUMENTARY: Denies pruritus, rashes, or lesions NEUROLOGY: Denies any changes to sight/smell/hearing/taste, seizures, faint, headaches, paresthesias, anesthesias PSYCHIATRIC: Denies depression, anxiety, paranoia, anhedonia, or episodes of yanelis ENDOCRINE: Denies diarrhea, increased appetite, tremor, palpitations, constipation, dry skin, polydipsia, polyuria, polyphagia HEMATOLOGIC: Denies any anemia, purpura, or petechiae LYMPHATIC: Denies any new lumps or bumps anywhere HOME MEDICATIONS: Please see below. PHYSICAL EXAMINATION: VITAL SIGNS: Please see below. GENERAL APPEARANCE: Laying in bed, appears stated age, no acute distress, calm, cooperative HEENT: EOMI, PERRLA, neck is supple with no thyromegaly or lymphadenopathy RESPIRATORY: Decreased breath sound at R lung base, no other adventitious breath sounds appreciated CARDIOVASCULAR: no JVD, RRR,no murmurs/rubs/gallops, normal S1 and S2 ABDOMEN: +BS, soft, nontender to palpation in all four quadrants, no masses/organomegaly EXTREMITIES: 1+ pitting edema bilateral, warmth, redness of both legs NEUROLOGICAL: CN 2-12 intact, No obvious focal deficits PSYCHIATRIC: normal mood/affect Skin: No rashes or ulcers appreciated, warm and well-perfused LN: No significant cervical or inguinal lymphadenopathy LABORATORY DATA: See below. IMAGING: CT CHEST: Clinical: Chest pain. Effusion. Technique: Axial noncontrast images from the thoracic inlet to the upper abdomen with coronal and sagittal re-formations. Comparison: 09/29/2017. Findings: [id number] right pleural effusion along with right lower lobe, right middle lobe, and to a lesser extent right upper lobe atelectasis noted. Possible mass within the lateral aspect of the right middle lobe cannot be excluded. Small early opacity in the posterior left upper lobe (image 31) is nonspecific. Cardiomegaly with small pericardial effusion and atherosclerotic changes to the thoracic aorta and coronary arteries noted. Mediastinal lymph nodes measuring up to approximately 9 mm are nonspecific and likely reactive. No pneumothorax. Tracheobronchial tree is grossly patent. Surrounding musculoskeletal structures intact without acute osseous abnormality. Impression: 1. [id number] right pleural effusion along with right lower lobe and right middle lobe atelectasis/consolidation as well as minimal passive atelectasis along the posterior right upper lobe. 2. Underlying mass lesion within the periphery of the right middle lobe cannot definitively be excluded due to surrounding pleural fluid and atelectasis. 3. Presumed reactive mediastinal lymph nodes up to 9 mm. 4. Small pericardial effusion and cardiomegaly relatively similar to 2018. CT ABD/PEL: Clinical: Fever with nausea and vomiting. Technique: Axial noncontrast images from the lung bases to the pubic symphysis with coronal and sagittal re-formations. Comparison: 05/09/2018. Findings: Moderate right pleural effusion along with right lower lobe and right middle lobe atelectasis/consolidation. Calcification and possible small mass lesion within the periphery of the right middle lobe cannot be excluded and is somewhat obscured by the surrounding atelectasis and effusion. A moderate amount of abdominal ascites primarily surrounding enlarged liver is appreciated along with suspected scattered mesenteric and retroperitoneal adenopathy and ill-defined areas of mesenteric soft tissue density highly suspicious for possible metastatic disease. Further more detailed evaluation is limited due to the lack of oral and intravenous contrast enhancement. Cholelithiasis noted. Spleen, bilateral adrenal glands and atrophic appearance to the kidneys are otherwise unremarkable by noncontrast evaluation. The pancreas is incompletely evaluated due to surrounding subtle mesenteric infi ltration and possible ascites. Extensive atherosclerotic disease noted throughout the intra-abdominal vasculature. The enteric system is without evidence for obstruction. Colonic diverticulosis noted. Pelvis demonstrates collapsed bladder and age-appropriate uterus/adnexa. No free air. Osseous structures demonstrate degenerative changes without focal abnormality. Impression: 1. Ascites along with suspected scattered intra-abdominal and retroperitoneal lymph nodes and possible soft tissue within the mesentery is suspicious for underlying metastatic disease. Given the extensive atherosclerotic disease noted, differential diagnosis may include changes related to underlying vascular disease and/or diabetes. Correlation is required. 2. Hepatomegaly. 3. Cholelithiasis. 4. Atrophic appearance the bilateral kidneys. 5. Further chronic changes as noted above. CXR: Impression: Moderate right pleural effusion, right lower lobe opacities and possible 2.6 cm rounded mass again noted and similar to prior examination. Correlation is recommended MICROBIOLOGY: Please see below. ASSESSMENT: This is a 43 YO F with history of ESRD (HD T/T/Sa) and DM1 who presents with nausea/vomiting and fevers found to have lactic acidosis and R- sided pleural effusion. She is admitted for hemodialysis and empiric antibiotic therapy for pneumonia and cellulitis. PLAN: 1. Pleural effusion and lactic acidosis: -Concerning for pneumonia vs malignancy given enlarged mediastinal lymph nodes and abdominal nodes -Will have IR do thoracentesis on Tuesday and send for cytology -No IVF needed at this time -Empiric Zosyn 2. ESRD on HD: Cr 4.78 -Discussed case with Dr. Myrick -Patient will undergo HD and UF tomorrow -Continue Renvela, Veltassa, Calcitriol -No electrolyte abnormalities at this time 3. Anemia 2/2 LUH vs CKD: Hgb 11.2 -Will check iron studies 4. Bilateral lower extremity swellling and erythema: concerning for cellulitis -Bilateral lower extremity doppler to r/o DVT -Empiric Vancomycin -MRSA screen pending 5. DM1: -Continue NPH 10U QPM, 15U QAM -SSI with hypoglycemic protocol 6.Mood disorder: -Continue Lexapro DVT ppx: H Attending attestation: I evaluated and examined the patient in person; I discussed the care with Resident in detail and agree with the plan above. Vital Signs Vital Signs Date Time Temp Pulse Resp B/P (MAP) Pulse Ox O2 Delivery O2 Flow Rate FiO2 07/14/19 16:01 100.2 75 07/14/19 16:00 16 134/72 (92) 07/14/19 15:45 96 07/14/19 11:38 Room Air Laboratory Data Labs 24H Laboratory Tests 2 07/14/19 12:10: Coronavirus (COVID-19)(PCR) NEGATIVE 07/14/19 12:11: Immature Granulocyte % (Auto) 1.3, Neutrophils (%) (Auto) 85.9H, Lymphocytes (%) (Auto) 5.8L, Monocytes (%) (Auto) 6.7H, Eosinophils (%) (Auto) 0.0, Basophils (%) (Auto) 0.3, Neutrophils # (Auto) 8.4, Lymphocytes # (Auto) 0.6L, Monocytes # (Auto) 0.7, Eosinophils # (Auto) 0.0, Basophils # (Auto) 0.0, Nucleated Red Blood Cells % (auto) 0.0, Prothrombin Time 16.7H, Prothromb Time International Ratio 1.38, Activated Partial Thromboplast Time 29.8, Anion Gap 17H, Glomerular Filtration Rate 10.6L, Lactic Acid Level 3.6*H, Calcium Level 8.6, Total Bilirubin 1.3H, Direct Bilirubin 0.5H, Aspartate Amino Transf (AST/SGOT) 29, Alanine Aminotransferase (ALT/SGPT) 30, Alkaline Phosphatase 178H, Total Creatine Kinase 84, Creatine Kinase MB 2.0, Creatine Kinase MB Relative Index 2.38, Troponin I 0.42H, Total Protein 7.2, Albumin 3.5, Albumin/Globulin Ratio 0.9L, Lipase 28L 07/14/19 14:45: Urine Color YELLOW, Urine Appearance HAZY, Urine pH 8.0, Urine Specific [place] 1.011, Urine Protein 3+H, Urine Glucose (UA) 3+H, Urine Ketones TRACEH, Urine Blood 3+H, Urine Nitrite NEGATIVE, Urine Bilirubin NEGATIVE, Urine Urobilinogen 0.2, Urine Leukocyte Esterase NEGATIVE, Urine WBC (Auto) 25H, Urine RBC (Auto) TNTCH, Urine Hyaline Casts (Auto) 0, Urine Bacteria (Auto) 1+H, Urine Squamous Epithelial Cells 0, Urine Sperm (Auto) CBC/BMP Laboratory Tests 07/14/19 12:11 Microbiology Microbiology 07/14/19 Urine Culture, Received Pending 07/14/19 Respiratory Virus Panel (PCR) (MELIDA) - Final, Complete 07/14/19 Blood Culture, Received Pending 07/14/19 Blood Culture, Received Pending Home Medications Scheduled Calcitriol (Rocaltrol) 0.5 Mcg Capsule, 0.5 MCG PO 3XW TAKEN ON DIALYSIS DAYS, , , TUE Ergocalciferol (Vitamin D2) (Vitamin D2) 50,000 Units Cap, 50,000 UNITS PO QWEEK takes on wednesdays Escitalopram Oxalate (Lexapro) 10 Mg Tab, 10 MG PO QHS Ferric Citrate (Auryxia) 210 Mg Tab, 630 MG PO TID TAKES WITH MEALS Folic Acid/Vit B Complex and C (Lesly-Rocío Tablet) 1 Tab Tab, 1 TAB PO DAILY Insulin Human Lispro (Humalog) 100 Unit/1 Ml Vial, SC ASDIRECTED PER SLIDING SCALE Insulin Human NPH (Humulin N) 100 Unit/1 Ml Vial, 15 UNITS SC QAM Insulin Human NPH (Humulin N) 100 Unit/1 Ml Vial, 10 UNITS SC QPM Patiromer Calcium Sorbitex (Veltassa) 8.4 Gm Pow, 8.4 GM PO 4XWK TUESDAY, TUESDAY, TUESDAY AND TUESDAY (NON-DIALYSIS DAYS) Allergies Coded Allergies: No Known Allergies (Unverified , 07/25/17) A-FIB/CHADSVASC A-FIB History Current/History of A-Fib/PAF?: No GME ATTESTATION GME ATTESTATION My faculty preceptor for this patient encounter was physically present during the encounter and was fully available. All aspects of the patient interview, examination, medical decision making process, and medical care plan development were reviewed and approved by the faculty preceptor. The faculty preceptor is aware and concurs with the plan as stated in the body of this note and will attest to such by his/her cosignature. FELISHA HANNAH MD July 14, 2019 17:12 HILARIA KRAFT MD July 15, 2019 19:57
[2019-07-14] MEDS ORDERED: ONDANSETRON 4MG/2ML VIAL IV PRN (19:00)
[2019-07-14] MEDS ORDERED: VANCOMYCIN HCL 1,000 MG, VIAL MATE ADAPTER 1 EACH in D5W 250 ML IV ONE (19:00)
[2019-07-14] MEDS: PIPERACILLIN/TAZOBACTAM SOD 2.25 GM in D5W MINI-BAG PLUS 50 ML IV SCH (19:05)
[2019-07-14] MEDS: (RENVELA) SEVELAMER **CARBONate** 800 MG TAB PO SCH (19:05)
[2019-07-14] MEDS: HumuLIN N INSULIN (NovoLIN N) PER UNIT SC SCH (19:11)
--- NOTE | 2019-07-14 19:51 | REPVR ---
PROCEDURE INFORMATION: Exam: US Duplex Lower Extremity Veins, Bilateral Exam date and time: 07/14/2019 7:28 PM Age: 43 years old Clinical indication: Pain; Leg, lower; Bilateral; Additional info: R/O dvt TECHNIQUE: Imaging protocol: Real-time duplex ultrasound of the extremities with 2-D moreau scale, color Doppler flow and spectral waveform analysis with image documentation. Complete exam focused on the bilateral lower extremity veins. COMPARISON: No relevant prior studies available. FINDINGS: Right deep veins: Unremarkable. The common femoral, femoral, proximal profunda femoral and popliteal veins are patent without thrombus. Normal Doppler waveforms. Normal compressibility and/or augmentation response. Right superficial veins: Saphenofemoral junction is patent without thrombus. Left deep veins: Unremarkable. The common femoral, femoral, proximal profunda femoral and popliteal veins are patent without thrombus. Normal Doppler waveforms. Normal compressibility and/or augmentation response. Left superficial veins: Saphenofemoral junction is patent without thrombus. Soft tissues: Bilateral lower leg edema. IMPRESSION: Bilateral lower leg edema. No DVT. Electronically signed by: Osmin Dumont On 07/14/2019 19:51:29 PM
[2019-07-14] MEDS: ESCITALOPRAM OXALATE 10 MG TAB (LEXAPRO) PO SCH (20:15)
[2019-07-14] MEDS: HEPARIN SOD (PORCINE) 5000UNITS/ML VIAL (J1644 PER 1000UNITS) SC SCH (20:16)
[2019-07-14 22:00] VITALS: BP 136/70
[2019-07-15] MEDS: ACETAMINOPHEN TAB 650MG DOSE (2X325MG) PO PRN ×2 (01:18→22:19)
[2019-07-15] MEDS: PIPERACILLIN/TAZOBACTAM SOD 2.25 GM in D5W MINI-BAG PLUS 50 ML IV SCH ×2 (05:38→18:29)
[2019-07-15] MEDS: (RENVELA) SEVELAMER **CARBONate** 800 MG TAB PO SCH ×3 (05:38→18:00)
[2019-07-15] MEDS: HEPARIN SOD (PORCINE) 5000UNITS/ML VIAL (J1644 PER 1000UNITS) SC SCH ×2 (05:38→21:45)
[2019-07-15 05:49] LABS: HEMATOCRIT 34.6 % (36.0-47.0); HEMOGLOBIN 11.3 g/dl (12.0-15.5); MEAN CORPUSCULAR HEMOGLOBIN 33.5 pg (27.0-33.0); MEAN CORPUSCULAR HGB CONC 32.7 g/dl (32.0-36.5); MEAN CORPUSCULAR VOLUME 102.7 fl (80.0-96.0); PLATELET COUNT, AUTOMATED 107 10^3/uL (150-450); RED BLOOD COUNT 3.37 10^6/uL (4.00-5.40); WHITE BLOOD COUNT 5.1 10^3/uL (4.0-10.0)
[2019-07-15 06:00] VITALS: BP 146/94
[2019-07-15 06:15] LABS: ALBUMIN 2.7 GM/DL (3.2-5.2); BILIRUBIN,TOTAL 0.8 MG/DL (0.2-1.0); CALCIUM LEVEL 8.1 MG/DL (8.5-10.1); CREATININE FOR GFR 5.34 MG/DL (0.55-1.30); GLOMERULAR FILTRATION RATE 9.4 (>58); MAGNESIUM LEVEL 2.5 MG/DL (1.8-2.4); POTASSIUM SERUM 4.7 MEQ/L (3.5-5.1); TOTAL PROTEIN 5.8 GM/DL (6.4-8.2)
[2019-07-15] MEDS: HumaLOG INSULIN (NovoLOG) PER UNIT SC SCH ×4 (08:03→20:09)
[2019-07-15] MEDS: HumuLIN N INSULIN (NovoLIN N) PER UNIT SC SCH ×2 (08:03→17:30)
[2019-07-15] MEDS: VANCOMYCIN ORAL SOL 250MG/5ML ORAL SYRINGE PO SCH ×2 (12:00→18:00)
--- NOTE | 2019-07-15 12:27 | IPNPDOC ---
Date Seen The patient was seen on 07/15/19. Progress Note SUBJECTIVE: 43-year-old female with past medical history of end-stage renal disease, status post failed renal and pancreatic transplant, on hemodialysis, was admitted for fever and infectious workup. Patient is found to have blood cultures positive for gram-positive cocci. Patient developed diarrhea, stool is positive for C. difficile. Patient seen during dialysis today, reports improvement in symptoms compared to yesterday, no complaints other than profound diarrhea. She denies any chest pain, nausea, vomiting, shortness of breath, or abdominal pain. 10 point review of system is negative except for above PHYSICAL EXAMINATION: VITAL SIGNS: Please see below. GENERAL: No distress HEENT: Normocephalic, atraumatic, moist mucous membranes NECK: Supple CARDIOVASCULAR EXAMINATION: S1, S2, no murmurs RESPIRATORY EXAMINATION: Scattered rhonchi, no wheezing ABDOMINAL EXAMINATION: Soft, nontender, nondistended, positive bowel sounds, multiple surgical scars EXTREMITIES: Left upper extremity AV fistula SKIN: No rash NEUROLOGICAL EXAMINATION: Alert and oriented 3, no focal deficits PSYCHIATRIC EXAMINATION: Calm and cooperative LABORATORY DATA, IMAGING STUDIES, MICROBIOLOGY: Please see below. ASSESSMENT AND PLAN: 43-year-old female with multiple medical comorbidities is admitted for bacteremia and C. difficile. PROBLEMS: 1. Gram-positive bacteremia: Continue empiric vancomycin and Zosyn, repeat cultures tomorrow. 2. C. difficile: Start vancomycin 125 mg by mouth every 6 hours. 3. End-stage renal disease: Hemanalysis today, continue outpatient regimen, further management as per nephrology. 4. Diabetes mellitus: Continue NPH insulin and sliding scale insulin coverage with meals and at bedtime. DVT prophylaxis: Heparin subcutaneous GI prophylaxis: Not needed VS, I&O, 24H, Ahmet Vital Signs/I&O Vital Signs Date Time Temp Pulse Resp B/P (MAP) Pulse Ox O2 Delivery O2 Flow Rate FiO2 07/15/19 06:00 96.7 59 16 146/94 (111) 98 Room Air I&O- Last 24 Hours up to 6 AM 07/15/19 06:00 Intake Total 650 ml Output Total 20 ml Balance 630 ml Laboratory Data 24H LABS Laboratory Tests 2 07/14/19 14:45: Urine Color YELLOW, Urine Appearance HAZY, Urine pH 8.0, Urine Specific [place] 1.011, Urine Protein 3+H, Urine Glucose (UA) 3+H, Urine Ketones TRACEH, Urine Blood 3+H, Urine Nitrite NEGATIVE, Urine Bilirubin NEGATIVE, Urine Urobilinogen 0.2, Urine Leukocyte Esterase NEGATIVE, Urine WBC (Auto) 25H, Urine RBC (Auto) TNTCH, Urine Hyaline Casts (Auto) 0, Urine Bacteria (Auto) 1+H, Urine Squamous Epithelial Cells 0, Urine Sperm (Auto) 07/14/19 16:57: Bedside Glucose (Misc Panel) 280H 07/14/19 17:45: Lactic Acid Followup at 4 Hours 3.0*H 07/14/19 21:39: Bedside Glucose (Misc Panel) 162H 07/15/19 05:27: Nucleated Red Blood Cells % (auto) 0.0, Anion Gap 12, Glomerular Filtration Rate 9.4L, Calcium Level 8.1L, Magnesium Level 2.5H, Total Bilirubin 0.8, Aspartate Amino Transf (AST/SGOT) 36, Alanine Aminotransferase (ALT/SGPT) 26, Alkaline Phosphatase 143H, Total Protein 5.8L, Albumin 2.7#L, Albumin/Globulin Ratio 0.9L 07/15/19 07:56: Bedside Glucose (Misc Panel) 219H 07/15/19 08:17: Methicillin-Resist S.aureus DNA PCR NOT DETECTED CBC/BMP Laboratory Tests 07/15/19 05:27 Microbiology Microbiology 07/15/19 Gastrointestinal Tract Panel (PCR) - Final, Complete Clostridium Difficile A/B 07/14/19 Urine Culture, Received Pending 07/14/19 Respiratory Virus Panel (PCR) (MELIDA) - Final, Complete 07/14/19 Blood Culture - Preliminary, Resulted 07/14/19 Blood Culture - Preliminary, Resulted HILARIA KRAFT MD July 15, 2019 12:27
--- NOTE | 2019-07-15 13:31 | CR ---
DATE OF CONSULTATION: 07/15/2019 NEPHROLOGY CONSULTATION FOR: John Rollins MD. REASON FOR CONSULTATION: To assist in the management of end-stage renal disease and volume overload. HISTORY OF PRESENT ILLNESS: Mrs. Nye is a 43-year-old female with known history of longstanding insulin controlled diabetes, hypertension, end-stage renal disease and associated complications. She had a failed kidney pancreas transplant and has been dialysis dependent. She was admitted last evening with nausea and vomiting for 3 days. She did miss her dialysis treatment yesterday. On admission, she was noticed to have significant lower extremity edema and large pleural effusion on chest x-ray. Nephrology consultation was requested for need for dialysis and patient is seen this morning. I have been informed by nursing staff that she just tested positive for Clostridium (C) difficile colitis this morning as she was also having diarrhea in addition to nausea and vomiting. PAST MEDICAL AND SURGICAL HISTORY: Significant for: 1. Type 1 diabetes. 2. End-stage renal disease. 3. Renovascular hypertension. 4. Hyperlipidemia. 5. History of diabetic retinopathy. 6. History of abnormal uterine bleeding. 7. History of chronic lower extremity edema. 8. 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 Past surgical history is significant for history of cataracts bilaterally, left foot 5th toe amputation, left arm arteriovenous (AV) fistula creation, history of vitreous hemorrhage in left eye, history of kidney and pancreas transplant in January 2017. PERSONAL AND SOCIAL HISTORY: Patient denies any alcohol, tobacco or drug use. She is and lives with her family. FAMILY HISTORY: Significant for diabetes and hypertension. There is no family history for end-stage renal disease. REVIEW OF SYSTEMS: Patient reports some fever but mostly nausea and vomiting at home for 3 days. She has decreased visual acuity due to diabetic retinopathy but denies any nose or throat problems. Cardiovascular system is significant for chronic leg edema and hypertension. At present, she denies any dyspnea or chest pain. Respiratory system is significant for large pleural effusion noticed on chest x-ray and CT scan of chest. She denies any hemoptysis or pleuritic type chest pain. She did have some right lower lobe infiltrate on CT scan. Endocrine system is significant for type 1 diabetes and secondary hyperparathyroidism. Hematological system significant for anemia of chronic kidney disease. Psychosocial system is significant for poor compliance with diet and fluid restriction. Neurological system is negative for seizures or stroke. She does have peripheral neuropathy. Skin is significant for lower extremity erythema and swelling. PHYSICAL EXAMINATION: Temperature 96.7 degrees Fahrenheit, heart rate 60 per minute and respiratory rate 16 per minute. Blood pressure 146/94 mmHg earlier this morning, but now during dialysis it is down to 116/80 mmHg and oxygen saturation is 98% on room air. Head is atraumatic. Pupils equal and reactive to light and sclera is anicteric. Neck is supple and jugular venous distention (JVD) is not abnormally distended. She has no oral thrush or ulcers. Heart sounds are regular and without a pericardial friction rub. Lungs have diminished breath sounds on the right side. Abdomen is soft and nontender. Bowel sounds are normal. Extremities: Without any cyanosis or clubbing. Left arm AV fistula is currently being used for dialysis. Lower extremity edema is about 1+. She has some chronic stasis changes. Neurologically, she is awake and at her baseline mentation without a focal deficit. Today's labs show WBC count 5.1, hemoglobin 11.3 and hematocrit 34.6. Platelets 107. Sodium 132, potassium 4.7, CO2 23, BUN 52 and creatinine 5.34. Her lactic acid level was 3.6 yesterday and repeat one was down to 3.0. Total protein 5.8 and albumin 2.7. Urinalysis showed 25 WBCs and too numerous to count RBCs. 3+ protein and 3+ glucose noted. Vascular ultrasound of lower extremities was negative for DVT. Chest CT scan showed a large right-sided pleural effusion and infiltrate. CT scan of abdomen and pelvis was consistent with ascites and some lymphadenopathy. PROBLEMS: 1. End-stage renal disease. Patient has been dialysis dependent. She missed her dialysis yesterday and is being dialyzed today. 2. Right pleural effusion and hypervolemia. She has long history of noncompliance with fluid restriction with chronic lower extremity edema and volume overload. She also misses her dialysis treatments at times. In any event, her CT scan of chest showed large right-sided pleural effusion. She also has ascites and peripheral edema. We are trying to remove about 5 liters of fluid today as tolerated. It remains to be seen how she does. We will continue with fluid restriction of 1500 mL per day and our efforts to correct her volume status with aggressive fluid removal. 3. Hyponatremia. She has mild hyponatremia related to diarrhea and vomiting. This will be corrected with dialysis and no other intervention will be needed. 4. Right lower lobe pneumonia. She has been started on antibiotic. She is afebrile at present. 5. Clostridium difficile colitis. Patient just tested positive for C diff this morning. She should be started on oral vancomycin and continue to monitor closely. Thank you for involving me in the care of Mrs. Nye. I will follow her along with you.
[2019-07-15 14:00] VITALS: BP 181/85
[2019-07-15] MEDS: PATIROMER SORBITEX CALCIUM 8.4 GM POWDER PACKET (VELTASSA) PO SCH (14:17)
[2019-07-15] MEDS ORDERED: VANCOMYCIN HCL 1,000 MG, VIAL MATE ADAPTER 1 EACH in D5W 250 ML IV SCH (16:00)
[2019-07-15] MEDS ORDERED: **VANCO AFTER HD** MISC XX SCH (16:00)
[2019-07-15] MEDS ORDERED: METOCLOPRAMIDE INJ 10MG/2ML VIAL (J2765 PER 1) IV PRN (16:15)
[2019-07-15 18:00] VITALS: BP 176/83
[2019-07-15] MEDS ORDERED: DAPTOmycin 300 MG in NS 50 ML IV SCH (20:00)
[2019-07-15] MEDS: ESCITALOPRAM OXALATE 10 MG TAB (LEXAPRO) PO SCH (20:19)
[2019-07-15] MEDS: FIDAXOMICIN 200 MG TAB (DIFICID) PO SCH (20:20)
[2019-07-15 20:33] VITALS: BP 171/81
[2019-07-15 21:00] VITALS: BP 171/81
--- NOTE | 2019-07-15 21:02 | ECGEPIP ---
[facility] - ED Test Date: 2019-07-14 Pat Name: KAYLEE TRAN Department: Room: - Gender: Female Air[employer] Ref[employer]er: POLLY : 1975 Requested By: GEOFFREY Hagan Order Number: [id number] Reading MD: Jackie Valencia Measurements Intervals [place] Rate: 94 P: 43 NE: 152 QRS: 137 QRSD: 102 T: 65 QT: 360 QTc: 450 Interpretive Statements SINUS RHYTHM POSSIBLE RIGHT VENTRICULAR HYPERTROPHY MODERATE ST DEPRESSION INCREASED RATE 11/15/18 Electronically Signed on 07-15-2019 21:01:54 EDT by Jackie Vaelncia
[2019-07-15 21:47] VITALS: BP 134/57
[2019-07-16] VITALS (8 sets, daily range): BP systolic 127–142; BP diastolic 60–67
[2019-07-16] MEDS: PIPERACILLIN/TAZOBACTAM SOD 2.25 GM in D5W MINI-BAG PLUS 50 ML IV SCH ×2 (05:25→18:15)
[2019-07-16 06:12] LABS: HEMATOCRIT 33.1 % (36.0-47.0); HEMOGLOBIN 10.5 g/dl (12.0-15.5); MEAN CORPUSCULAR HEMOGLOBIN 32.6 pg (27.0-33.0); MEAN CORPUSCULAR HGB CONC 31.7 g/dl (32.0-36.5); MEAN CORPUSCULAR VOLUME 102.8 fl (80.0-96.0); PLATELET COUNT, AUTOMATED 133 10^3/uL (150-450); RED BLOOD COUNT 3.22 10^6/uL (4.00-5.40); WHITE BLOOD COUNT 4.1 10^3/uL (4.0-10.0)
[2019-07-16 06:35] LABS: ALBUMIN 2.5 GM/DL (3.2-5.2); CREATININE FOR GFR 3.86 MG/DL (0.55-1.30); GLOMERULAR FILTRATION RATE 13.6 (>58); POTASSIUM SERUM 3.9 MEQ/L (3.5-5.1); TOTAL PROTEIN 5.7 GM/DL (6.4-8.2)
[2019-07-16] MEDS: (RENVELA) SEVELAMER **CARBONate** 800 MG TAB PO SCH ×4 (08:14→19:00)
[2019-07-16] MEDS: HEPARIN SOD (PORCINE) 5000UNITS/ML VIAL (J1644 PER 1000UNITS) SC SCH ×2 (08:14→20:32)
[2019-07-16] MEDS: FIDAXOMICIN 200 MG TAB (DIFICID) PO SCH ×2 (08:14→20:32)
[2019-07-16] MEDS: HumaLOG INSULIN (NovoLOG) PER UNIT SC SCH ×4 (08:15→20:26)
[2019-07-16] MEDS: HumuLIN N INSULIN (NovoLIN N) PER UNIT SC SCH ×2 (08:15→18:16)
--- NOTE | 2019-07-16 10:17 | REP ---
REASON FOR EXAM: Cough. COMPARISON EXAM: 08/09/2018 Preliminary report was given by Dr. Vivar at time the exam was performed. The technique utilized in obtaining the radiograph has magnified the cardiac silhouette and accentuated the interstitial markings. Chronic change is seen involving the right lung base with CP angle blunting and patchy opacities. There is a pleural-based, somewhat rounded-appearing opacity, which is unchanged. Left lung is clear and stable. The cardiac silhouette is magnified by technique. Mild cardiomegaly cannot be ruled out. There is no change in the osseous structures. IMPRESSION: Chronic right basilar changes with opacities and probable chronic, at least partially loculated, pleural effusion. Pneumonia/atelectasis/neoplasm. Consider followup with CT. Electronically Signed by Elvis Pfeiffer DO 07/16/2019 11:53 A
--- NOTE | 2019-07-16 11:06 | REP ---
PORTABLE CHEST X-RAY: SITTING AP VIEW. HISTORY: Rule out pleural effusion. Comparison study, July 14, 2019. FINDINGS: There is blunting of the right lateral pleural angle consistent with small right pleural effusion. Right hemidiaphragm appears to be somewhat elevated as well. These findings are unchanged. Heart size is borderline. There is fullness in the right infrahilar region which is unchanged from prior studies including February 02, 2019. The left lung is clear. IMPRESSION: Pleuroparenchymal changes on the right including a small right pleural effusion and some elevated right hemidiaphragm. There is a rounded opacity in the infrahilar region on the right. This is unchanged. Electronically Signed by Caleb Cuba MD 07/16/2019 11:18 A
--- NOTE | 2019-07-16 11:33 | REP ---
CT CHEST WITHOUT CONTRAST: HISTORY: Shortness of breath and fever. Preliminary report is provided at the time of the exam by Dr. Vivar. COMPARISON: Chest x-ray February 02, 2019 and July 14, 2019. Chest x-ray from June 29, [address] FINDINGS: The patient is scanned in an oblique rotated to the right position. There is moderate right pleural effusion noted. There are areas of somewhat rounded-appearing posterior opacity in the right lower lobe and lateral opacity and the right middle lobe distribution. These resemble spiral atelectasis. Mass lesions are not completely excluded but considered less likely. The pleural effusion appears to have increased from the radiographs of June 29, 2018 and February 02, 2019. There are scattered mediastinal lymph nodes in the anterior mediastinum, pretracheal region. The largest of these is 7 mm in short axis dimension. These are not definitely enlarged. There is fairly extensive vascular calcification in the aorta and coronary artery distribution. No pleural effusion is seen. The heart appears mildly enlarged. There is a small amount of pericardial fluid. No left pleural effusion is seen. There is upper abdominal ascites. Extensive vascular calcifications noted in the upper abdomen. IMPRESSION: Moderate right pleural effusion. Peripheral rounded areas of opacity in the right lower lobe and right middle lobe resemble rounded atelectasis. The effusion has increased gradually since the June 29, 2018 prior radiograph. Extensive vascular calcification. Small amount of pericardial fluid and upper abdominal ascites are noted. Scattered mediastinal normal-sized lymph nodes. Electronically Signed by Caleb Cuba MD 07/16/2019 04:53 P
--- NOTE | 2019-07-16 11:43 | REP ---
REASON FOR EXAM: Nausea, vomiting, fever. COMPARISON EXAM: 05/09/2018 Preliminary report was given by Dr. Vivar at the time the examination was performed. The lack of intravenous contrast and oral bowel preparatory contrast decreases the sensitivity of the exam. There is ascites, which has increased from the prior exam. There is cholelithiasis, status quo. There is no gross change in appearance of the pancreas or spleen. There is unchanged bilateral adrenal gland thickening. There are bilateral renovascular calcifications, status quo. Scattered gas and fluid-filled small bowel loops are seen. There is no evidence of free air. There is evidence of para-aortic adenopathy and scattered mesenteric lymphadenopathy cannot be ruled out. There is small amount of free fluid in the pelvis. There is a moderate amount of content in the rectosigmoid vault. There is no evidence of pelvic sidewall adenopathy, however, multiple round pelvic sidewall lymph nodes are present, status quo. Bone window technique throughout the exam shows no significant change in appearance of the osseous structures. IMPRESSION: 1. There is a small to moderate amount of ascites, which has increased from the prior exam. 2. Small bowel ileus is suspected. 3. Suspected adenopathy, as described above. Etiology uncertain. 4. Cholelithiasis, which is known along with known chronic bilateral renovascular calcifications. Mild hepatomegaly, status quo, with other findings and chronic changes as described above. Electronically Signed by Elvis Pfeiffer DO 07/16/2019 11:55 A
[2019-07-16] MEDS: PATIROMER SORBITEX CALCIUM 8.4 GM POWDER PACKET (VELTASSA) PO SCH (12:28)
--- NOTE | 2019-07-16 15:45 | IPNPDOC ---
Date Seen The patient was seen on 07/16/19. Progress Note SUBJECTIVE: Patient seen and examined at the bedside this AM. She looks and is feeling much better. She has been afebrile for 24 hours now. She underwent dialysis yesterday with no issues. She denies any SOB/CP nor any nausea or vomiting. She is having ongoing diarrhea from her c dificile infection. Otherwise, no issues overnight and no other complaints this morning. OBJECTIVE PHYSICAL EXAMINATION: VITAL SIGNS: Please see below. GENERAL APPEARANCE: Laying in bed, appears stated age, no acute distress, calm, cooperative HEENT: EOMI, PERRLA, neck is supple with no thyromegaly or lymphadenopathy RESPIRATORY: Decreased breath sound at R lung base, no other adventitious breath sounds appreciated CARDIOVASCULAR: no JVD, RRR,no murmurs/rubs/gallops, normal S1 and S2 ABDOMEN: +BS, soft, nontender to palpation in all four quadrants, no masses/organomegaly EXTREMITIES: 1+ pitting edema bilateral, warmth, redness of both legs NEUROLOGICAL: CN 2-12 intact, No obvious focal deficits PSYCHIATRIC: normal mood/affect Skin: No rashes or ulcers appreciated, warm and well-perfused LN: No significant cervical or inguinal lymphadenopathy LABORATORY DATA: See below. IMAGING: LOWER EXT DOPPLER US: FINDINGS: Right deep veins: Unremarkable. The common femoral, femoral, proximal profunda femoral and popliteal veins are patent without thrombus. Normal Doppler waveforms. Normal compressibility and/or augmentation response. Right superficial veins: Saphenofemoral junction is patent without thrombus. Left deep veins: Unremarkable. The common femoral, femoral, proximal profunda femoral and popliteal veins are patent without thrombus. Normal Doppler waveforms. Normal compressibility and/or augmentation response. Left superficial veins: Saphenofemoral junction is patent without thrombus. Soft tissues: Bilateral lower leg edema. IMPRESSION: Bilateral lower leg edema. No DVT. CXR: PORTABLE CHEST X-RAY: SITTING AP VIEW. HISTORY: Rule out pleural effusion. Comparison study, July 14, 2019. FINDINGS: There is blunting of the right lateral pleural angle consistent with small right pleural effusion. Right hemidiaphragm appears to be somewhat elevated as well. These findings are unchanged. Heart size is borderline. There is fullness in the right infrahilar region which is unchanged from prior studies including February 02, 2019. The left lung is clear. IMPRESSION: Pleuroparenchymal changes on the right including a small right pleural effusion and some elevated right hemidiaphragm. There is a rounded opacity in the infrahilar region on the right. This is unchanged. MICROBIOLOGY: Please see below. ASSESSMENT: This is a 43 YO F with history of ESRD (HD T/T/Sa) and DM1 who presents with nausea/vomiting and fevers found to have lactic acidosis and R- sided pleural effusion. She is admitted for hemodialysis and empiric antibiotic therapy for pneumonia and cellulitis. PLAN: 1. Pleural effusion and lactic acidosis: -Concerning for pneumonia vs malignancy given enlarged mediastinal lymph nodes and abdominal nodes -IR thoracentesis today -CRP 13.3 -Procalcitonin pending -Empiric Zosyn 2. C dificile infection -Continue Dificid 3. GP bacteremia: -BC x2 growth of Group G Streptococcus -Continue Daptomycin 4. ESRD on HD: Cr 4.78 -Continue Renvela, Veltassa, Calcitriol -No electrolyte abnormalities at this time -HD per Nephrology 5. Anemia 2/2 [facility] vs CKD: Hgb 10.5 this AM -Will check iron studies 6. Bilateral lower extremity swellling and erythema: concerning for cellulitis -Bilateral lower extremity doppler to r/o DVT negative -Could be source of bacteremia. Continue Daptomycin 7. DM1: -Continue NPH 10U QPM, 15U QAM -SSI with hypoglycemic protocol 7.Mood disorder: -Continue Lexapro DVT ppx: [facility] Attending attestation: I evaluated and examined the patient in person; I discussed the care with Resident in detail and agree with the plan above. VS, I&O, 24H, Fishbone Vital Signs/I&O Vital Signs Date Time Temp Pulse Resp B/P (MAP) Pulse Ox O2 Delivery O2 Flow Rate FiO2 07/16/19 10:00 98.0 60 17 129/61 (83) 98 Room Air I&O- Last 24 Hours up to 6 AM 07/16/19 06:00 Intake Total 1146 ml Output Total 4000 ml Balance -2854 ml Laboratory Data 24H LABS Laboratory Tests 2 07/15/19 16:45: Bedside Glucose (Misc Panel) 126H 07/15/19 20:06: Bedside Glucose (Misc Panel) 155H 07/16/19 05:39: Nucleated Red Blood Cells % (auto) 0.0, Anion Gap 13, Glomerular Filtration Rate 13.6L, Calcium Level 8.0L, Total Bilirubin 1.0, Aspartate Amino Transf ( AST/SGOT) 73H, Alanine Aminotransferase (ALT/SGPT) 63, Alkaline Phosphatase 133H, Total Protein 5.7L, Albumin 2.5L, Albumin/Globulin Ratio 0.8L 07/16/19 09:39: C-Reactive Protein, Quantitative 13.30H 07/16/19 11:59: Bedside Glucose (Misc Panel) 216H CBC/BMP Laboratory Tests 07/16/19 05:39 Microbiology Microbiology 07/16/19 Blood Culture, Received Pending 07/16/19 Blood Culture, Received Pending 07/15/19 Gastrointestinal Tract Panel (PCR) - Final, Complete Clostridium Difficile A/B 07/14/19 Urine Culture - Final, Complete 07/14/19 Respiratory Virus Panel (PCR) (MELIDA) - Final, Complete 07/14/19 Blood Culture - Preliminary, Resulted Streptococcus Group G 07/14/19 Blood Culture - Preliminary, Resulted Streptococcus Group G GME ATTESTATION GME ATTESTATION My faculty preceptor for this patient encounter was physically present during the encounter and was fully available. All aspects of the patient interview, examination, medical decision making process, and medical care plan development were reviewed and approved by the faculty preceptor. The faculty preceptor is aware and concurs with the plan as stated in the body of this note and will attest to such by his/her cosignature. FELISHA HANNAH MD July 16, 2019 15:45 HILARIA KRAFT MD July 23, 2019 21:33
[2019-07-16 17:02] LABS: PH BODY FLUID 7.691 UNITS (NOT ESTABLISHED); SOURCE, BODY FLUID pH PLEURAL
[2019-07-16 17:06] LABS: APPEARANCE, BODY FLUID CLEAR (CLEAR); PLEURAL FL COLOR YELLOW (COLORLESS); SOURCE, BODY FLUID PLEURAL
[2019-07-16 17:32] LABS: AMYLASE, BODY FLUID 23 U/L (NOT ESTABLISHED); LDH, BODY FLUID 92 U/L (NOT ESTABLISHED); SOURCE, BODY FLUID AMYLASE PLEURAL; SOURCE, BODY FLUID GLUCOSE PLEURAL; SOURCE, BODY FLUID LDH PLEURAL; SOURCE, BODY FLUID TOT PROTEIN PLEURAL; TOTAL PROTEIN, BODY FLUID 2.8 G/DL (NOT ESTABLISHED)
--- NOTE | 2019-07-16 19:13 | REP ---
ULTRASOUND-GUIDED RIGHT THORACENTESIS The procedure was performed under the direct supervision of of Dr. Raygoza. The risks and benefits of the procedure were explained to the patient and informed consent was obtained. The right pleural effusion was localized using ultrasound guidance. The skin was prepped and draped in a sterile fashion. 1% lidocaine was used as a local anesthetic. An 8-Spanish multi side-hole catheter was inserted using trocar technique. 885 ml of yellow fluid was withdrawn and sent to lab for analysis. The patient tolerated the procedure well and there were no immediate complications. After the appropriate amount of monitored convalescence the patient was discharged from the department. Electronically Signed by AMY Gates 07/16/2019 05:31 P Electronically Signed by Huber Raygoza MD 07/16/2019 07:04 P
--- NOTE | 2019-07-16 20:11 | IPN ---
DATE: 07/16/2019 Mrs. Nye is seen this morning on her bedside. She was diagnosed with Clostridium difficile (C diff) colitis yesterday and continues to have some liquid stools. Right now she is sitting in the chair getting ready for lunch. She denies any dyspnea or chest pain. She did have dialysis yesterday as she had missed dialysis on Tuesday. We removed about 4 liters of fluid, and she tolerated it well. PHYSICAL EXAMINATION: Temperature 98 degrees Fahrenheit, heart rate 60 per minute and respiratory rate 17 per minute. Blood pressure 129/60 mmHg and oxygen saturation 98% on room air. Head is atraumatic. Neck: Supple and jugular venous distention (JVD) not abnormally distended, sitting upright. Lungs: Have diminished breath sounds in right lower half. Heart sounds are regular. Abdomen: Soft and nontender. Bowel sounds are normal. Extremities with chronic leg edema. Left arm arteriovenous (AV) fistula is patent. There is no cyanosis or clubbing. Neurologically, she is awake, alert and at her baseline mentation. Today's labs show WBC count 4.1, hemoglobin 10.5 and hematocrit 33.1. Sodium 134, potassium 3.9, CO2 of 25, BUN 27 and creatinine 3.86. C-reactive protein is 13.3. PROBLEMS: 1. End-stage renal disease. The patient was dialyzed yesterday due to missed dialysis on Tuesday. We will plan to dialyze her again tomorrow, which is her regular scheduled day. 2. Hyponatremia. Mild hyponatremia persists, which is probably related to her hyperglycemia. This will be improved with dialysis and no other intervention is indicated. 3. Clostridium difficile colitis. The patient is currently being treated with oral vancomycin. She is also on Zosyn for possible pneumonia. She has also been started on daptomycin today. Her oral vancomycin has also been stopped, and she is now on Dificid 200 mg twice a day. 4. Pneumonia. She is currently afebrile and remains on daptomycin and Zosyn. 5. Right pleural effusion. We tried to remove 5 liters of fluid yesterday, but she did not tolerate and we were able to remove about 4 liters. We will continue with our efforts to remove fluid and then repeat her CT scan of chest prior to discharge. She already had a chest x-ray done today, which still shows right pleural effusion. I think it is too early for effusion to resolve as she only had one dialysis treatment. It is also likely that she will probably require a thoracentesis. 6. Anemia. Her anemia is stable, and we will continue to monitor closely. No urgent intervention is indicated.
[2019-07-16] MEDS: ESCITALOPRAM OXALATE 10 MG TAB (LEXAPRO) PO SCH (20:32)
[2019-07-16] MEDS: MORPHINE 2 MG/ML 1ML VIAL (J2270) IV PRN (20:46)
--- NOTE | 2019-07-16 23:00 | REP ---
CHEST, TWO VIEWS: Two views of the chest are performed and compared to prior study of same day. No pneumothorax is seen status post right thoracentesis. There is mild residual pleural parenchymal opacity at the right lung base. There is cardiomegaly. Left lung is clear. Electronically Signed by Huber Raygoza MD 07/17/2019 12:14 P
[2019-07-17 02:00] VITALS: BP 135/59
[2019-07-17] MEDS: PIPERACILLIN/TAZOBACTAM SOD 2.25 GM in D5W MINI-BAG PLUS 50 ML IV SCH (05:16)
[2019-07-17 06:00] VITALS: BP 137/69
[2019-07-17] MEDS: FIDAXOMICIN 200 MG TAB (DIFICID) PO SCH ×2 (06:12→21:42)
[2019-07-17] MEDS: CALCITRIOL 0.25 MCG CAP (S0169) PO SCH (07:53)
[2019-07-17] MEDS: HumaLOG INSULIN (NovoLOG) PER UNIT SC SCH ×4 (07:53→21:00)
[2019-07-17] MEDS: (RENVELA) SEVELAMER **CARBONate** 800 MG TAB PO SCH ×3 (07:53→17:24)
[2019-07-17] MEDS: HumuLIN N INSULIN (NovoLIN N) PER UNIT SC SCH ×2 (07:54→17:24)
[2019-07-17] MEDS: HEPARIN SOD (PORCINE) 5000UNITS/ML VIAL (J1644 PER 1000UNITS) SC SCH ×2 (07:54→21:43)
[2019-07-17 08:59] LABS: HEMATOCRIT 34.2 % (36.0-47.0); MEAN CORPUSCULAR HEMOGLOBIN 33.3 pg (27.0-33.0); MEAN CORPUSCULAR HGB CONC 32.2 g/dl (32.0-36.5); MEAN CORPUSCULAR VOLUME 103.6 fl (80.0-96.0); PLATELET COUNT, AUTOMATED 128 10^3/uL (150-450)
[2019-07-17 09:26] LABS: ALBUMIN 2.6 GM/DL (3.2-5.2); BILIRUBIN,TOTAL 0.7 MG/DL (0.2-1.0); CALCIUM LEVEL 8.5 MG/DL (8.5-10.1); CREATININE FOR GFR 5.1 MG/DL (0.55-1.30); GLOMERULAR FILTRATION RATE 9.9 (>58); PERCENT SATURATION 61.4 % (13.2-45.0); POTASSIUM SERUM 3.7 MEQ/L (3.5-5.1)
[2019-07-17 12:45] VITALS: BP 121/60
--- NOTE | 2019-07-17 12:46 | ECHO ---
DATE OF STUDY: 07/16/2019 REFERRING PHYSICIAN: Dr. Cuevas INDICATION: Fever. HEIGHT: 163 cm. WEIGHT: 65 kg. MEASUREMENTS: IVS: 1.3 LV: 4.7 LVPW: 1.4 LA: 3.8 Aorta: 2.5 IVC: 2.3 Mitral E wave velocity: 117 A wave: 100 E prime septal: 5.7 E prime lateral: 6.4 FINDINGS: The study is of good technical quality. The patient is in sinus rhythm. Left ventricle is normal size. Mild left ventricle hypertrophy is present. There is a low normal LV systolic function, I estimate ejection fraction (EF) around 50-55%. Right ventricle is dilated and hypokinetic. Both atria appear at least mildly enlarged. Aortic valve appears normal. Mitral valve exhibits mild thickening of leaflets, but mobility is preserved. No vegetations are seen. Tricuspid valve appears grossly normal. Pulmonic valve was poorly visualized, but based on limited views appears normal. There is trace noncompressive pericardial effusion. Inferior vena cava is dilated and there is no appreciable collapse with inspiration, indicative of likely very high central venous pressure. The aortic root is normal. Aortic arch also appears normal. Doppler interrogation reveals competent aortic valve. There is trivial mitral insufficiency and no significant mitral stenosis. There is likely severe tricuspid insufficiency with eccentric TR jet oriented toward interatrial septum and reflux into hepatic veins. There is trace pulmonic insufficiency present. Mitral inflow pattern and tissue Doppler imaging of mitral annulus revealed grade 2 diastolic dysfunction. CONCLUSIONS: 1. The study is good technical quality, patient is in sinus rhythm. 2. Normal LV size with mild left ventricular hypertrophy, low normal LV systolic function and grade 2 diastolic dysfunction. 3. Dilated hypokinetic right ventricle. 4. No significant aortic valvular disease. 5. Mild thickening of mitral valve with trivial insufficiency and no significant stenosis. 6. Eccentric severe tricuspid insufficiency. 7. High central venous pressure. 8. At least moderate and probably moderately severe pulmonary hypertension (estimated pulmonary artery pressure 55-60 mmHg). 9. Trace pericardial effusion. 10. No visualized vegetations., Compared to the echocardiogram from 07/05/2018, there has been decrease in LV systolic function, there has been progression of RV dysfunction, severity of tricuspid insufficiency appears unchanged.
[2019-07-17 14:00] VITALS: BP 122/62
[2019-07-17] MEDS: ceFAZolin SOD 2 GM in IV 1 EA IV SCH (17:24)
[2019-07-17 18:00] VITALS: BP 128/62
--- NOTE | 2019-07-17 18:18 | IPNPDOC ---
Date Seen The patient was seen on 07/17/19. Progress Note SUBJECTIVE: 43-year-old female with past medical history of end-stage renal disease, status post failed renal and pancreatic transplant, on hemodialysis is admitted for bacteremia and C. diff colitis. Patient is found to have blood cultures positive for Group G strep. She underwent TTE which is negative for Endocarditis. She is comfortable, without any new complaints at this time. She denies any CP or abdominal pain. She continues to have diarrhea related to C. diff. 10 point review of system is negative except for above PHYSICAL EXAMINATION: VITAL SIGNS: Please see below. GENERAL: No distress HEENT: Normocephalic, atraumatic, moist mucous membranes NECK: Supple CARDIOVASCULAR EXAMINATION: S1, S2, no murmurs RESPIRATORY EXAMINATION: Scattered rhonchi, no wheezing ABDOMINAL EXAMINATION: Soft, nontender, nondistended, positive bowel sounds, multiple surgical scars EXTREMITIES: Left upper extremity AV fistula SKIN: No rash NEUROLOGICAL EXAMINATION: Alert and oriented 3, no focal deficits PSYCHIATRIC EXAMINATION: Calm and cooperative LABORATORY DATA, IMAGING STUDIES, MICROBIOLOGY: Please see below. ASSESSMENT AND PLAN: 43-year-old female with multiple medical comorbidities is admitted for bacteremia and C. difficile. PROBLEMS: 1. Group G Strep bacteremia : Repeat cultures negative to date, TTE negative, will consult Cardiology for KARIS, antibiotics switched to Ancef, ID consult appreciated. 2. C. difficile: continue Dificid 200 mg BID. 3. End-stage renal disease: HD today, continue outpatient regimen, further management as per nephrology. 4. Diabetes mellitus: Continue NPH insulin and sliding scale insulin coverage with meals and at bedtime. DVT prophylaxis: Heparin subcutaneous GI prophylaxis: Not needed VS, I&O, 24H, Ahmet Vital Signs/I&O Vital Signs Date Time Temp Pulse Resp B/P (MAP) Pulse Ox O2 Delivery O2 Flow Rate FiO2 07/17/19 14:00 99.4 66 19 122/62 (82) 93 Room Air I&O- Last 24 Hours up to 6 AM 07/17/19 06:00 Intake Total 1300 ml Balance 1300 ml Laboratory Data 24H LABS Laboratory Tests 2 07/16/19 20:14: Bedside Glucose (Misc Panel) 79 07/17/19 07:39: Bedside Glucose (Misc Panel) 213H 07/17/19 08:33: Nucleated Red Blood Cells % (auto) 0.0, Anion Gap 11, Glomerular Filtration Rate 9.9L, Calcium Level 8.5, Iron Level 105, Total Iron Binding Capacity 171L, Transferrin % Saturation 61.4H, Ferritin 1054H, Total Bilirubin 0.7, Aspartate Amino Transf (AST/SGOT) 44H, Alanine Aminotransferase (ALT/SGPT) 53, Alkaline Phosphatase 189H, Total Protein 6.0L, Albumin 2.6L, Albumin/Globulin Ratio 0.8L 07/17/19 12:45: Bedside Glucose (Misc Panel) 125H 07/17/19 16:28: Bedside Glucose (Misc Panel) 144H CBC/BMP Laboratory Tests 07/17/19 08:33 Microbiology Microbiology 07/16/19 Acid Fast Stain, Received Pending 07/16/19 Mycobacterial Culture, Received Pending 07/16/19 Fungal Smear, Received Pending 07/16/19 Fungal Culture, Received Pending 07/16/19 Gram Stain - Final, Resulted 07/16/19 Body Fluid Culture, Resulted Pending 07/16/19 Blood Culture - Preliminary, Resulted No growth after 24 hours . All specim... 07/16/19 Blood Culture - Preliminary, Resulted No growth after 24 hours . All specim... 07/15/19 Gastrointestinal Tract Panel (PCR) - Final, Complete Clostridium Difficile A/B 07/14/19 Urine Culture - Final, Complete 07/14/19 Respiratory Virus Panel (PCR) (MELIDA) - Final, Complete 07/14/19 Blood Culture - Final, Complete Streptococcus Group G 07/14/19 Blood Culture - Final, Complete Streptococcus Group G HILARIA KRAFT MD July 17, 2019 18:18
--- NOTE | 2019-07-17 21:12 | IPN ---
DATE: 07/17/2019 Mrs. Nye is seen this morning on her bedside during hemodialysis. She is feeling much better today and reports improved diarrhea. She had a thoracentesis done yesterday and almost 900 mL of fluid was removed. On physical exam, she is awake and alert, at her baseline mentation. Temperature 98.3 degrees Fahrenheit, heart rate 65 per minute and respiratory rate 17 per minute. Blood pressure 137/69 mmHg and oxygen saturation 96% on room air. Head is atraumatic. Neck is supple and without jugular venous distention (JVD) or thyroid enlargement. Heart sounds are regular. Lungs sound much better now with good air entry and few basilar rales. Abdomen: Soft and nontender and bowel sounds are normal. Extremities: Without any cyanosis or clubbing. Lower extremity edema has improved significantly. Left arm arteriovenous (AV) fistula is functioning. Today's labs show a WBC count of 6.0, hemoglobin 11.0 and hematocrit 34.2. Sodium 135, potassium 3.7, CO2 of 26, BUN 47 and creatinine 5.1. Calcium level 8.5. Iron level is 105, saturation 61% and ferritin 1054. Total protein 6.0 and albumin 2.6. PROBLEMS: 1. End-stage renal disease. The patient is being dialyzed, and she is tolerating dialysis very well. 2. Sepsis. Her initial blood cultures came back positive for group G Staphylococcus. Repeat blood cultures have been negative so far. She has been on antibiotics and daptomycin has been now stopped. She remains on Zosyn. 3. Clostridium difficile (C diff) colitis. Diarrhea is improving and remains on Dificid 200 mg twice a day. 4. Pleural effusion and hypoxemia. We have removed fluid aggressively with dialysis, and she also had a thoracentesis done yesterday. Her volume status is now optimal. We are trying to remove about 4 liters of fluid today. All in all, Mrs. Nye is doing very well from a renal standpoint. We will continue to follow her along with you.
[2019-07-17] MEDS: LACTIC ACID 12% LOTION 225 GM BTL TOP SCH (21:43)
[2019-07-17] MEDS: ESCITALOPRAM OXALATE 10 MG TAB (LEXAPRO) PO SCH (21:43)
[2019-07-17 22:00] VITALS: BP 128/61
[2019-07-18] VITALS (7 sets, daily range): BP systolic 134–162; BP diastolic 61–90
[2019-07-18 06:22] LABS: HEMATOCRIT 35.1 % (36.0-47.0); HEMOGLOBIN 11.1 g/dl (12.0-15.5); MEAN CORPUSCULAR HEMOGLOBIN 32.9 pg (27.0-33.0); MEAN CORPUSCULAR HGB CONC 31.6 g/dl (32.0-36.5); MEAN CORPUSCULAR VOLUME 104.2 fl (80.0-96.0); PLATELET COUNT, AUTOMATED 133 10^3/uL (150-450); RED BLOOD COUNT 3.37 10^6/uL (4.00-5.40); WHITE BLOOD COUNT 6.2 10^3/uL (4.0-10.0)
[2019-07-18 06:45] LABS: ALBUMIN 2.6 GM/DL (3.2-5.2); BILIRUBIN,TOTAL 0.8 MG/DL (0.2-1.0); CALCIUM LEVEL 8.4 MG/DL (8.5-10.1); CREATININE FOR GFR 3.89 MG/DL (0.55-1.30); GLOMERULAR FILTRATION RATE 13.5 (>58); POTASSIUM SERUM 4.1 MEQ/L (3.5-5.1); TOTAL PROTEIN 5.9 GM/DL (6.4-8.2)
[2019-07-18] MEDS: (RENVELA) SEVELAMER **CARBONate** 800 MG TAB PO SCH ×3 (08:00→16:10)
[2019-07-18] MEDS: HumuLIN N INSULIN (NovoLIN N) PER UNIT SC SCH ×2 (08:42→18:59)
[2019-07-18] MEDS: HumaLOG INSULIN (NovoLOG) PER UNIT SC SCH ×4 (08:42→22:48)
[2019-07-18] MEDS: FIDAXOMICIN 200 MG TAB (DIFICID) PO SCH ×2 (10:43→22:49)
[2019-07-18] MEDS: LACTIC ACID 12% LOTION 225 GM BTL TOP SCH ×2 (10:43→22:50)
[2019-07-18] MEDS: HEPARIN SOD (PORCINE) 5000UNITS/ML VIAL (J1644 PER 1000UNITS) SC SCH ×2 (10:43→22:49)
[2019-07-18] MEDS: PATIROMER SORBITEX CALCIUM 8.4 GM POWDER PACKET (VELTASSA) PO SCH (12:00)
--- NOTE | 2019-07-18 16:55 | CR ---
DATE OF CONSULTATION: 07/17/2019 REASON FOR CONSULTATION: Group G Streptococcus bacteremia. CONSULTATION REPORT FOR: Dr. Sonja Rollins HISTORY OF PRESENT ILLNESS: The patient is a 43-year-old female who presented to the emergency department on 07/14/2019 with a chief complaint of one day of fever, difficulty breathing, and weakness. The patient reports that on the day she was admitted she did not go to her regular scheduled dialysis. She says that she has been coughing over the past few months and this was a dry cough. She noticed that she had been having fevers starting the day prior to coming in to the hospital. While in the hospital, she was found to have a pleural effusion that was found to be a transudative effusion. The patient started having diarrhea and was subsequently diagnosed with Clostridium (C) difficile colitis. The patient's initially blood cultures came back positive for group G Streptococcus times two cultures. The patient was started on IV Zosyn. The patient was initially started on IV vancomycin and ceftriaxone but these were discontinued. The patient also received a dose of IV doxycycline. The patient has been feeling slightly better but does still complain of some back pain on the right side where her thoracentesis site was but says that she is feeling better and has been eating a little bit more over the past day or so. PAST MEDICAL HISTORY: 1. Type 1 diabetes. 2. Iron deficiency anemia. 3. Seasonal allergies. 4. End-stage renal disease. 5. Renovascular hypertension. 6. Mixed hyperlipidemia. 7. Macrocytosis. 8. Diabetic retinopathy. 9. Vitreous hemorrhage of the left eye. 10. Alopecia. 11. Abnormal urine bleeding. PAST SURGICAL HISTORY: 1. Removal of cataracts bilaterally. 2. Left foot fifth digit amputation in 2013. 3. Fistula of the left arm in 2014. 4. 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 SOCIAL HISTORY: The patient denies smoking, alcohol, or any other illicit drugs. She lives at home with her and their two dogs. 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 FAMILY HISTORY: The patient's father has hypertension and type 2 diabetes and the patient's mother is alive and healthy. ALLERGIES: No known drug allergies. CURRENT INPATIENT MEDICATIONS: - calcitriol Tuesday, , Tuesday - morphine as needed for pain - fidaxomicin 200 mg twice a day - Lac-Hydrin lotion - metoclopramide 5 mg every eight hours for nausea - Veltassa Tuesday, Tuesday, Tuesday, Tuesday - NPH insulin 15 units every morning - heparin 5000 units twice a day - Lexapro 10 mg daily - sliding scale insulin - Renvela NPH insulin 10 units at night - Tylenol as needed for pain REVIEW OF SYSTEMS: GENERAL: The patient denies fevers, chills, or night sweats. HEENT: The patient denies headache, changes in vision, or sore throat. CARDIOVASCULAR: The patient denies chest pain or palpitations. RESPIRATORY: The patient does endorse a mild nonproductive cough and some shortness of breath but that has improved since admission. GASTROINTESTINAL (GI): The patient denies abdominal pain, nausea, vomiting, or diarrhea. The patient says her diarrhea has improved and she had one loose bowel movement earlier today. GENITOURINARY (): The patient does produce a small amount of urine and denies any pain or difficulty with urination. NEUROLOGICAL: The patient does have diabetic neuropathy in bilateral feet and has minimal feeling in her feet but denies any new onset numbness or tingling. EXTREMITIES: The patient does say her extremities are red and appear slightly swollen which is her normal. SKIN: The patient endorses redness in her lower legs as well as induration of her thighs but denies any new rashes. LYMPHATICS: The patient denies any lumps or bumps in her neck, axilla, or groin. PHYSICAL EXAMINATION: VITAL SIGNS: Temperature 99.4, pulse 66, respiratory rate 19, blood pressure 122/62, pulse oximetry 93% on room air. GENERAL: The patient is an alert and oriented female patient who was laying in bed when I walked into the room. The patient did not appear to be in any acute distress. HEENT: Normocephalic, atraumatic, anicteric sclerae with moist mucous membranes. NECK: Supple with no lymphadenopathy. CARDIOVASCULAR: Regular rate and rhythm. There was a 2/6 systolic murmur heard loudest over the right second intercostal space on the parasternal border. No rubs or gallops. RESPIRATORY: Clear to auscultation bilaterally in the upper lung fisher. There was some faint crackles in the lower right lung base with dullness to percussion, tympanic to percussion in the entire left lung field. ABDOMEN: Soft, nontender to palpation with normoactive bowel sounds. EXTREMITIES: Showed erythema up to the level of the knee with induration of the thighs bilaterally. There was no evidence of skin breakdown in the lower extremities and there was trace edema. SKIN: No evidence of breakdown, rashes, or other lesions other than the redness described above. LABORATORY STUDIES: White blood cells 6.0, hemoglobin 11.9, hematocrit 34.2, platelet count 128. Sodium 135, potassium 3.7, chloride 98, bicarbonate 28, BUN 47, creatinine 5.10, glucose 286, calcium 8.5, iron 105, TIBC 171, transferrin saturation 61.4, ferritin 1054, total bilirubin 0.7, AST 44, ALT 53, alkaline phosphatase 189, total protein 6.0, albumin 2.6. MICROBIOLOGY: The patient had two blood cultures performed on 07/14/2019 which were positive for group G Streptococcus. A respiratory panel and urine culture from 07/14/2019 were negative. A gastrointestinal panel from 07/15/2019 was positive for Clostridium difficile. Blood cultures drawn on 07/16/2019 were negative times two for any growth and there are still cultures pending for the pleural fluid that was drawn on 07/16/2019. IMAGING STUDIES: A chest x-ray performed on 07/14/2019 was reported to show chronic right basilar changes with opacities and probably chronic at least partially loculated pleural effusion, pneumonia/atelectasis/neoplasm, consider followup CT. A CT of the chest performed without contrast on 07/14/2019 was reported to show a moderate right pleural effusion, peripheral rounded areas of opacity in the right lower lobe and the right middle lobe resemble rounded atelectasis. The effusion has increased gradually since 06/29/2018 prior radiograph. Extensive vascular calcifications, small amount of pleural fluid and upper abdominal ascites is noted, scattered mediastinal normal size lymph nodes. A CT of the abdomen and pelvis performed without contrast on 07/14/2019 was reported to show a small to moderate amount of ascites increased from prior exam, small bowel ileus is suspected, suspected adenopathy as described above with multiple round pelvic sidewall lymph nodes present and cholelithiasis which is known along with known chronic bilateral renovascular calcifications. A duplex of the veins of the lower extremities bilaterally was reported to show no DVT with bilateral lower leg edema. ASSESSMENT AND PLAN: The patient is a 43-year-old female who presented to the hospital with a history of fever and difficulty breathing, who was found to have group G Streptococcus in her blood. 1. Group G Streptococcal bacteremia. There is no obvious source for this infection at this time. The group G Streptococcus is pansensitive so the patient has been switched to Ancef 2 grams every 24 hours while she is in the hospital. The patient will also be given dialysis doses once she is discharged. The patient will need a transesophageal echocardiogram to rule out endocarditis. If the patient does not have endocarditis, the patient will need 10 days total of antibiotics. If the patient does have evidence of endocarditis on transesophageal echocardiogram (KARIS), the patient will need four weeks of antibiotics. 2. Clostridium (C) difficile colitis. The patient will continue on fidaxomicin 200 mg twice a day. The patient will continue this until her antibiotics are completed so she does not have a recurrence of her C. difficile colitis. The patient's diarrhea is better at this time and we will continue to monitor the patient. We thank you for the consultation and we will follow along with the patient.
[2019-07-18] MEDS ORDERED: LIDOCAINE VISCOUS 2% SOLN 15ML UDC As Ordered ONE (17:07)
[2019-07-18] MEDS ORDERED: CETACAINE SPRAY 5GM As Ordered ONE (17:07)
[2019-07-18] MEDS ORDERED: propofoL 200 MG/20 ML VIAL As Ordered ONE (17:16)
[2019-07-18] MEDS ORDERED: LIDOCAINE 2% 100MG/5ML SDV (FOR ANES.) As Ordered ONE (17:16)
[2019-07-18] MEDS ORDERED: fentaNYL 100 MCG/2 ML INJECTION (J3010) As Ordered ONE (17:17)
[2019-07-18] MEDS ORDERED: MIDAZOLAM INJ 2MG/2ML VIAL (J2250 PER 1MG) As Ordered ONE (17:17)
[2019-07-18] MEDS ORDERED: ceFAZolin 2 GM/D5W 50 ML IV BAG (J0690 PER 500MG) As Ordered ONE (17:38)
[2019-07-18] MEDS: ceFAZolin SOD 2 GM in IV 1 EA IV SCH (17:48)
--- NOTE | 2019-07-18 17:54 | IPNPDOC ---
Date Seen The patient was seen on 07/18/19. Progress Note SUBJECTIVE: 43-year-old female with past medical history of end-stage renal disease, status post failed renal and pancreatic transplant, on hemodialysis is admitted for bacteremia and C. diff colitis. She feels much better today, no complaints at this time. She is scheduled for a KARIS later today. She denies any shortness of breath, chest pain, nausea or vomiting. Her diarrhea has improved significantly since yesterday. 10 point review of system is negative except for above PHYSICAL EXAMINATION: VITAL SIGNS: Please see below. GENERAL: No distress HEENT: Normocephalic, atraumatic, moist mucous membranes NECK: Supple CARDIOVASCULAR EXAMINATION: S1, S2, no murmurs RESPIRATORY EXAMINATION: Scattered rhonchi, no wheezing ABDOMINAL EXAMINATION: Soft, nontender, nondistended, positive bowel sounds, multiple surgical scars EXTREMITIES: Left upper extremity AV fistula SKIN: No rash NEUROLOGICAL EXAMINATION: Alert and oriented 3, no focal deficits PSYCHIATRIC EXAMINATION: Calm and cooperative LABORATORY DATA, IMAGING STUDIES, MICROBIOLOGY: Please see below. ASSESSMENT AND PLAN: 43-year-old female with multiple medical comorbidities is admitted for bacteremia and C. difficile. PROBLEMS: 1. Group G Strep bacteremia : Repeat cultures negative to date, TTE negative, scheduled for KARIS later today, continue Ancef, ID consult appreciated. 2. C. difficile: continue Dificid 200 mg BID. 3. End-stage renal disease: continue outpatient regimen, further management as per nephrology. 4. Diabetes mellitus: Continue NPH insulin and sliding scale insulin coverage with meals and at bedtime. 5. Sepsis on admission: Secondary to above, resolved with treatment mentioned above. DVT prophylaxis: Heparin subcutaneous GI prophylaxis: Not needed VS, I&O, 24H, Fishbone Vital Signs/I&O Vital Signs Date Time Temp Pulse Resp B/P (MAP) Pulse Ox O2 Delivery O2 Flow Rate FiO2 07/18/19 14:13 160/70 (100) 07/18/19 14:00 98.3 63 16 97 Room Air I&O- Last 24 Hours up to 6 AM 07/18/19 06:00 Intake Total 1140 ml Output Total 4500 ml Balance -3360 ml Laboratory Data 24H LABS Laboratory Tests 2 07/17/19 20:51: Bedside Glucose (Misc Panel) 221H 07/18/19 06:00: Nucleated Red Blood Cells % (auto) 0.0, Anion Gap 10, Glomerular Filtration Rate 13.5L, Calcium Level 8.4L, Total Bilirubin 0.8, Aspartate Amino Transf (AST/SGOT) 28, Alanine Aminotransferase (ALT/SGPT) 40, Alkaline Phosphatase 182H, Total Protein 5.9L, Albumin 2.6L, Albumin/Globulin Ratio 0.8L 07/18/19 11:22: Bedside Glucose (Misc Panel) 396H 07/18/19 16:35: Bedside Glucose (Misc Panel) 118H CBC/BMP Laboratory Tests 07/18/19 06:00 Microbiology Microbiology 07/16/19 Acid Fast Stain, Received Pending 07/16/19 Mycobacterial Culture, Received Pending 07/16/19 Fungal Smear, Received Pending 07/16/19 Fungal Culture, Received Pending 07/16/19 Gram Stain - Final, Complete 07/16/19 Body Fluid Culture - Final, Complete 07/16/19 Blood Culture - Preliminary, Resulted No Growth after 48 hours. All Specime... 07/16/19 Blood Culture - Preliminary, Resulted No Growth after 48 hours. All Specime... 07/15/19 Gastrointestinal Tract Panel (PCR) - Final, Complete Clostridium Difficile A/B 07/14/19 Urine Culture - Final, Complete 07/14/19 Respiratory Virus Panel (PCR) (MELIDA) - Final, Complete 07/14/19 Blood Culture - Final, Complete Streptococcus Group G 07/14/19 Blood Culture - Final, Complete Streptococcus Group G HILARIA KRAFT MD July 18, 2019 17:54
[2019-07-18] MEDS ORDERED: DIFI200T PO (18:10)
[2019-07-18] MEDS ORDERED: ONDANSETRON 4MG/2ML VIAL IV PRN (19:00)
[2019-07-18] MEDS ORDERED: fentaNYL 100 MCG/2 ML INJECTION (J3010) IV PRN (19:00)
[2019-07-18] MEDS: ESCITALOPRAM OXALATE 10 MG TAB (LEXAPRO) PO SCH (22:49)
[2019-07-19 02:00] VITALS: BP 142/76
--- NOTE | 2019-07-19 05:41 | IPN ---
DATE: 07/18/2019 Ms. yNe is seen this morning on her bedside. She is nothing by mouth today for a transesophageal echocardiogram this afternoon. Her blood cultures came back positive for streptococcus group G, due to which a transesophageal echocardiogram (KARIS) was scheduled for possible endocarditis. Her diarrhea has improved, and she remains on oral Dificid. She was dialyzed yesterday, and her volume status has also improved. On physical exam, temperature 98.6 degrees Fahrenheit, heart rate 64 per minute, and respiratory rate 17 per minute. Blood pressure 162/77 mmHg and oxygen saturation 100% on room air. Head is atraumatic. Neck supple and without jugular venous distention (JVD) or thyroid enlargement. Heart sounds are regular with systolic murmur grade 2/6. She has a fistula in her left arm with aloud bruit in her left upper chest. Lungs sound clear to auscultation with slightly diminished breath sounds at right base. Abdomen soft and nontender. Bowel sounds are normal. Extremities without any cyanosis or clubbing. Left arm arteriovenous (AV) fistula is patent. Neurologically, she is at her baseline mentation. Today's labs show WBC count 6.2, hemoglobin 11.1, and hematocrit 35.1. Platelets 133. Sodium 136, potassium 4.1, CO2 of 27, BUN 36, and creatinine 3.89. Calcium level 8.4. PROBLEMS: 1. End-stage renal disease. Patient was dialyzed yesterday, and next dialysis will be scheduled for tomorrow. At this point, there is no emergent indication for dialysis today. 2. Congestive heart failure and volume overload. Her volume status has improved significantly with aggressive fluid removal. We will try to remove 3-4 liters with the next dialysis tomorrow. She already had a thoracentesis done for her pleural effusion. 3. Streptococcus bacteremia. Patient is currently afebrile and remains on intravenous antibiotic. She is scheduled for transesophageal echocardiogram later today to rule out endocarditis. 4. Clostridium (C) difficile colitis. Symptoms are improving, and she remains on Dificid 200 mg twice a day. 5. Hyponatremia. Sodium level is corrected completely, and we will continue to follow her electrolytes and manage her volume status with dialysis. 6. Anemia. Her anemia is stable at this point and does not need any urgent intervention.
[2019-07-19 06:00] VITALS: BP 164/68
[2019-07-19] MEDS: FIDAXOMICIN 200 MG TAB (DIFICID) PO SCH ×2 (06:06→20:42)
[2019-07-19] MEDS: CALCITRIOL 0.25 MCG CAP (S0169) PO SCH (06:06)
[2019-07-19] MEDS: HEPARIN SOD (PORCINE) 5000UNITS/ML VIAL (J1644 PER 1000UNITS) SC SCH ×2 (06:06→20:42)
[2019-07-19] MEDS: LACTIC ACID 12% LOTION 225 GM BTL TOP SCH ×2 (06:07→20:42)
[2019-07-19] MEDS: MORPHINE 2 MG/ML 1ML VIAL (J2270) IV PRN (06:07)
--- NOTE | 2019-07-19 07:11 | T-ECHO ---
DATE OF PROCEDURE: 07/18/2019 REFERRING PHYSICIAN: Dr. Rollins PREPROCEDURE DIAGNOSIS/INDICATION: Streptococcal bacteremia, suspicion for endocarditis. POSTPROCEDURE DIAGNOSIS: PROCEDURE: Transesophageal echocardiogram. SURGEON: Scotty Serna MD ANESTHESIA: Peter Valero CRNA BRIEF HISTORY: Ms. Nye is a 43-year-old female who has numerous medical issues that include the presence of diabetes and end-stage renal disease on dialysis. During this hospitalization, she had two sets of blood cultures positive for streptococcal bacteremia, and suspicion was raised for bacterial endocarditis. Transthoracic study did not reveal any obvious vegetation even though there was at least moderately severe tricuspid insufficiency. I was asked by Dr. Rollins to perform transesophageal echocardiogram. I met with the patient the morning of the procedure. I explained the rationale, the potential findings and implications. She did sign appropriate consent. Unfortunately, just prior to the procedure in the evening, we could not localize the consent and so new consent was again obtained. I briefly examined the patient, and there has been no change compared to this morning. PROCEDURE NOTE: Procedure was performed in the operating room. The patient presented in fasting condition. After appropriate monitors were applied and the appropriate time-out was taken, her posterior pharynx was anesthetized using viscous lidocaine and Cetacaine spray. She was then positioned in left lateral decubital position. Bite block was applied. Subsequently, multiplane probe was introduced without significant difficulty. After appropriate images were taken, it was withdrawn. There were no immediate complications, and patient tolerated the procedure well. FINDINGS: Left ventricle has normal systolic function; I estimate ejection fraction (EF) around 60%. No segmental wall motion abnormalities are appreciated. Left atrium appears normal. There are no thrombi in left atrial appendage, and there is normal flow in left-sided pulmonary veins. Mitral valve has normal anatomy. There were no visualized vegetations or prolapse. By color Doppler imaging, there is only trace mitral insufficiency. Aortic valve has three cusps. It is thin and normally mobile. By color Doppler imaging, there is no stenosis or insufficiency. Again, no vegetations were seen. Pulmonic valve was relatively poorly seen. No gross abnormalities were noted. Trace insufficiency of the valve was present. Tricuspid valve was well visualized. It appears to have normal mobility. No vegetations, prolapse, or torn chords were localized. By color Doppler imaging, there is at least moderately severe tricuspid insufficiency with jet originating from the coaptation of tricuspid cusps. I am not completely certain what is the etiology of the insufficiency. Again, I could not appreciate any definite structural abnormality of the valve, but I have to assume that there is probably torn small chord. No vegetations were seen, though. Right atrium appears normal. There is normal flow in right-sided pulmonary veins. No evidence of shunt across the interatrial septum based on color Doppler imaging. We did not pursue injection of agitated saline but, because the anesthetic was administered intravenously (IV) throughout the procedure, we could visualize numerous small microbubbles in the right-sided chambers but none of them crossed to the left. There is atherosclerosis of the aortic arch and thoracic descending aorta but no protruding atherothrombotic material and no ulcers in the vessel wall. CONCLUSIONS: 1. Preserved left ventricle (LV) systolic function. 2. Normal mitral, aortic, and pulmonic valves without any vegetations or significant stenosis or insufficiency. 3. Moderately severe tricuspid insufficiency with central TR jet of uncertain etiology. No visualized vegetations, prolapse, or torn chords. 4. Mild atherosclerosis of the thoracic aorta. 5. Normal flow in both right-sided and left-sided pulmonary veins. 6. Small noncompressive pericardial effusion. COMMENT: The study does not provide evidence for endocarditis. MTDD
[2019-07-19] MEDS: HumuLIN N INSULIN (NovoLIN N) PER UNIT SC SCH ×2 (08:02→18:24)
[2019-07-19] MEDS: HumaLOG INSULIN (NovoLOG) PER UNIT SC SCH ×4 (08:02→22:11)
[2019-07-19] MEDS: (RENVELA) SEVELAMER **CARBONate** 800 MG TAB PO SCH ×3 (08:02→18:23)
--- NOTE | 2019-07-19 11:03 | IPN ---
DATE: 07/19/2019 Italia is seen while rounding for the hospitalist. She is getting dialysis when I saw her. She says she is still having diarrhea even though it is better. No pus. No blood. No morning labs ordered for today. She denies any chest pain or shortness of breath. PHYSICAL EXAMINATION: Vital signs stable. Lungs clear. Heart regular rhythm. Abdomen soft, nontender, nondistended. No peripheral edema. Labs are pending. IMPRESSION/PLAN: 1. C difficile colitis: Continue current regimen. 2. End-stage renal disease: Per nephrology. 3. Diabetes: Sliding scale with insulin coverage. 4. Group G strep bacteremia: Transesophageal echo was negative for vegetations.
[2019-07-19 11:15] LABS: HEMATOCRIT 33.4 % (36.0-47.0); HEMOGLOBIN 10.8 g/dl (12.0-15.5); MEAN CORPUSCULAR HEMOGLOBIN 33.1 pg (27.0-33.0); MEAN CORPUSCULAR HGB CONC 32.3 g/dl (32.0-36.5); MEAN CORPUSCULAR VOLUME 102.5 fl (80.0-96.0); PLATELET COUNT, AUTOMATED 135 10^3/uL (150-450); RED BLOOD COUNT 3.26 10^6/uL (4.00-5.40); WHITE BLOOD COUNT 6.2 10^3/uL (4.0-10.0)
[2019-07-19 12:09] LABS: ALBUMIN 2.5 GM/DL (3.2-5.2); CALCIUM LEVEL 8.6 MG/DL (8.5-10.1); CREATININE FOR GFR 5.63 MG/DL (0.55-1.30); GLOMERULAR FILTRATION RATE 8.8 (>58); PHOSPHORUS LEVEL 5.3 MG/DL (2.5-4.9); POTASSIUM SERUM 4.1 MEQ/L (3.5-5.1)
[2019-07-19 14:00] VITALS: BP 140/68
[2019-07-19 18:00] VITALS: BP 136/60
[2019-07-19] MEDS: ceFAZolin SOD 2 GM in IV 1 EA IV SCH (18:24)
[2019-07-19] MEDS: ESCITALOPRAM OXALATE 10 MG TAB (LEXAPRO) PO SCH (20:42)
[2019-07-19 22:00] VITALS: BP 147/78
[2019-07-20 02:00] VITALS: BP 145/77
--- NOTE | 2019-07-20 05:57 | IPN ---
DATE: 07/19/2019 Ms. Nye seen this morning during hemodialysis. She had a transesophageal echocardiogram yesterday, which was reported negative. Her diarrhea is improving. She denies any dyspnea, chest pain, nausea, or vomiting. On physical exam, temperature 98.3 degrees Fahrenheit, heart rate 64 per minute, and respiratory rate 18 per minute. Blood pressure 164/68 mmHg and oxygen saturation 95% on room air. Head is atraumatic. Neck supple and without jugular venous distention (JVD) or thyroid enlargement. Heart sounds regular, and lungs clear to auscultation. Abdomen soft and nontender. Bowel sounds are normal. Extremities without any cyanosis or clubbing. Left arm arteriovenous (AV) fistula is functioning. Today's labs show WBC count 6.2, hemoglobin 10.8, and hematocrit 33.4. Platelets 135. Sodium 134, potassium 4.1, BUN 50, and creatinine 5.63. Calcium 8.6 and phosphorus 5.3. PROBLEMS: 1. End-stage renal disease. Patient is being dialyzed, and she is tolerating dialysis treatment very well. 2. Hyponatremia. Mild hyponatremia related to end-stage renal disease and will be corrected with dialysis. No other intervention will be needed. 3. Anemia. Anemia is also stable at present and does not need any urgent intervention. 4. Congestive heart failure and volume overload. Her volume status has improved and well compensated now. She will continue with fluid restriction of 1500 mL per day. 2 liters fluid is being removed today. 5. Clostridium (C) difficile colitis. Diarrhea is improving, and she remains on Dificid. 6. Streptococcus bacteremia. Patient is currently afebrile and remains on antibiotics. Her transesophageal echocardiogram was reported negative.
[2019-07-20 06:00] VITALS: BP 170/91
[2019-07-20 06:12] LABS: HEMATOCRIT 34.7 % (36.0-47.0); HEMOGLOBIN 11.1 g/dl (12.0-15.5); MEAN CORPUSCULAR HEMOGLOBIN 33.2 pg (27.0-33.0); MEAN CORPUSCULAR VOLUME 103.9 fl (80.0-96.0); PLATELET COUNT, AUTOMATED 146 10^3/uL (150-450); RED BLOOD COUNT 3.34 10^6/uL (4.00-5.40); WHITE BLOOD COUNT 5.6 10^3/uL (4.0-10.0)
[2019-07-20 06:35] LABS: ALBUMIN 2.6 GM/DL (3.2-5.2); CALCIUM LEVEL 9.1 MG/DL (8.5-10.1); CREATININE FOR GFR 3.95 MG/DL (0.55-1.30); GLOMERULAR FILTRATION RATE 13.3 (>58); PHOSPHORUS LEVEL 4.6 MG/DL (2.5-4.9); POTASSIUM SERUM 4.9 MEQ/L (3.5-5.1)
[2019-07-20] MEDS: (RENVELA) SEVELAMER **CARBONate** 800 MG TAB PO SCH (07:49)
[2019-07-20] MEDS: HumaLOG INSULIN (NovoLOG) PER UNIT SC SCH (07:49)
[2019-07-20] MEDS: HumuLIN N INSULIN (NovoLIN N) PER UNIT SC SCH (07:49)
[2019-07-20] MEDS: HEPARIN SOD (PORCINE) 5000UNITS/ML VIAL (J1644 PER 1000UNITS) SC SCH (08:28)
[2019-07-20] MEDS: FIDAXOMICIN 200 MG TAB (DIFICID) PO SCH (08:29)
[2019-07-20] MEDS: LACTIC ACID 12% LOTION 225 GM BTL TOP SCH ×2 (08:29→08:30)
[2019-07-20] MEDS ORDERED: PENI500T PO (09:31)
[2019-07-20 09:45] LABS: C REACTIVE PROTEIN QUANTITATIV 4.14 MG/DL (0.00-0.30)
[2019-07-20 10:00] VITALS: BP 160/74
--- NOTE | 2019-07-20 11:49 | DSES ---
DATE OF ADMISSION: 07/14/2019 DATE OF DISCHARGE: 07/20/2019 CONSULTANTS: Dr. Rand Olsen, infectious disease. Dr. Taz Myrick, nephrology. PROCEDURE: Transesophageal echocardiogram, Dr. Serna, 07/18/2019 - vegetation seen. PRINCIPAL DIAGNOSIS: Clostridium (C) difficile colitis - recurrent. SECONDARY DIAGNOSES: 1. Group G streptococcus bacteremia (negative transesophageal echocardiogram). 2. End-stage renal disease, on dialysis. 3. Type 2 diabetes, no insulin. 4. Sepsis present on admission. HISTORY: Patient is a 43 year old, presented with sepsis. She had proved C. difficile colitis and then grew out group G streptococcus on blood cultures. Details in history and physical from admission. HOSPITAL COURSE: She was admitted to a medical bed, treated with intravenous (IV) Ancef. Infectious disease was consulted. Transesophageal echo was recommended. This was performed on 07/18/2019 and no vegetations were seen. She had C. difficile colitis, placed on Dificid 200 mg twice a day with slow but progressive resolution of diarrhea and, today, her stool is formed. She continued on dialysis through nephrology. Her sepsis resolved with appropriate treatment antibiotic therapy and fluids. Volume status was regulated by nephrology. SIGNIFICANT LABS: Today, white count is 5.6, hemoglobin 11.1, platelets 146. Sodium 136, potassium 4.9, BUN 34, creatinine 2.9, glucose 379. Iron studies anemia of chronic disease, high ferritin, high percent saturation, low TIBC. Pleural fluid was apparently withdrawn, and culture was negative. DISPOSITION: On day of discharge, she was resting comfortably, no distress. Lungs clear. Heart regular rate and rhythm. Abdomen soft, nontender, nondistended, no masses. Trace peripheral edema. Patient is discharged home. Followup with primary care provider in a week. Followup with Dr. Olsen per her office. Continue nephrology followup as scheduled. New medications are Dificid 200 mg twice a day for 7 days, penicillin VK 500 mg three times a day times 5 days (antibiotic regimen determined after detailed and fruitful discussion with infectious disease service on rounds today). She will continue her Rocaltrol 0.5 mcg three days a week, Drisdol 50,000 units weekly, Lexapro 10 mg at bedtime, ferric citrate 630 mg three times a day, Lesly-Rocío daily, NPH insulin 15 units in the morning, 10 units in the evening and a sliding scale lispro as needed, Veltassa 8.5 grams four times a week. Activity as tolerated. Renal diet advised. edited: 07/20/2019 [id number] yasmine HAIR
== END 2019-07-20 11:28 | disposition home or self-care (01) | DRG 871 ==
LOC: M ED 11:36 → M ED INP 17:19 → EEVIPCON 17:19 → ENRESERV 17:43 → M MSPAV 18:40
PROVIDERS: ADMIT Internal Medicine; ATTEND Family Medicine
PROC: 5A1D70Z Performance of Urinary Filtration, Intermittent, Less than 6 Hours Per Day (ICD-10-PCS; 2019-07-15)
PROC: 0W993ZZ Drainage of Right Pleural Cavity, Percutaneous Approach (ICD-10-PCS; principal; 2019-07-16 16:00)
PROC: B246ZZ4 Ultrasonography of Right and Left Heart, Transesophageal (ICD-10-PCS; 2019-07-18)
DX: A41.9 Sepsis, unspecified organism (principal); N18.6 End stage renal disease; J18.9 Pneumonia, unspecified organism; A04.72 Enterocolitis due to Clostridium difficile, not specified as recurrent; J90 Pleural effusion, not elsewhere classified; E87.2 Acidosis; L03.115 Cellulitis of right lower limb; L03.116 Cellulitis of left lower limb; E87.1 Hypo-osmolality and hyponatremia; E10.21 Type 1 diabetes mellitus with diabetic nephropathy; D50.9 Iron deficiency anemia, unspecified; E78.2 Mixed hyperlipidemia; E10.319 Type 1 diabetes mellitus with unspecified diabetic retinopathy without macular edema; L65.9 Nonscarring hair loss, unspecified; I15.0 Renovascular hypertension; Z79.899 Other long term (current) drug therapy; Z79.4 Long term (current) use of insulin

== ENCOUNTER 2019-10-14 00:16 | Inpatient (IN) | payer MEDICARE, BC ==
[~2019-10-14 00:16] MED LIST changes: +DIFI200T PO; +PENI500T PO
[2019-10-14] MEDS ORDERED: SOD POLYSTYRENE SULFONATE SUSP 15 GM/60 ML UD As Ordered ONE (02:47)
[2019-10-14] MEDS ORDERED: SOD POLYSTYRENE SULFONATE SUSP 15 GM/60 ML UD ONE (02:47)
[2019-10-14] MEDS ORDERED: HumuLIN R (REGULAR) INSULIN (NovoLIN R) **100U/ML** PER UNIT As Ordered ONE (03:45)
[2019-10-14] MEDS ORDERED: HumuLIN R (REGULAR) INSULIN (NovoLIN R) **100U/ML** PER UNIT ONE (03:45)
[2019-10-14] MEDS ORDERED: NEPHRO-VIT TAB (NEPHROCAPS) ONE (09:00)
[2019-10-14] MEDS ORDERED: HumuLIN N INSULIN (NovoLIN N) PER UNIT ONE (09:00)
[2019-10-14] MEDS ORDERED: HumaLOG INSULIN (NovoLOG) PER UNIT As Ordered ONE ×2 (13:37→18:42)
[2019-10-14] MEDS ORDERED: HumaLOG INSULIN (NovoLOG) PER UNIT ONE ×2 (13:37→18:42)
[2019-10-14] MEDS ORDERED: ESCITALOPRAM OXALATE 10 MG TAB (LEXAPRO) ONE (21:08)
[2019-10-14] MEDS ORDERED: HEPARIN SOD (PORCINE) 5000UNITS/ML 1ML VIAL/SYRINGE As Ordered ONE (21:08)
[2019-10-14] MEDS ORDERED: ESCITALOPRAM OXALATE 10 MG TAB (LEXAPRO) As Ordered ONE (21:08)
[2019-10-14] MEDS ORDERED: HEPARIN SOD (PORCINE) 5000UNITS/ML 1ML VIAL/SYRINGE ONE (21:08)
[2019-10-15] MEDS ORDERED: ONDANSETRON 4MG/2ML VIAL As Ordered ONE (03:18)
[2019-10-15] MEDS ORDERED: ONDANSETRON 4MG/2ML VIAL ONE (03:18)
[2019-10-15] MEDS ORDERED: HEPARIN SOD (PORCINE) 5000UNITS/ML 1ML VIAL/SYRINGE ONE (05:08)
[2019-10-15] MEDS ORDERED: HEPARIN SOD (PORCINE) 5000UNITS/ML 1ML VIAL/SYRINGE As Ordered ONE (05:08)
[2019-10-15] MEDS ORDERED: HumaLOG INSULIN (NovoLOG) PER UNIT As Ordered ONE ×2 (09:15→11:54)
[2019-10-15] MEDS ORDERED: PANTOPRAZOLE 40MG VIAL (C9113 PER 1) As Ordered ONE (09:15)
[2019-10-15] MEDS ORDERED: HumaLOG INSULIN (NovoLOG) PER UNIT ONE ×2 (09:15→11:54)
[2019-10-15] MEDS ORDERED: PANTOPRAZOLE 40MG VIAL (C9113 PER 1) ONE (09:15)
[2019-11-16 15:14] LABS: HEMATOCRIT 35.2 % (36.0-47.0); HEMOGLOBIN 11.3 g/dl (12.0-15.5); MEAN CORPUSCULAR HEMOGLOBIN 35.4 pg (27.0-33.0); MEAN CORPUSCULAR HGB CONC 32.1 g/dl (32.0-36.5); MEAN CORPUSCULAR VOLUME 110.3 fl (80.0-96.0); PLATELET COUNT, AUTOMATED 139 10^3/uL (150-450); RED BLOOD COUNT 3.19 10^6/uL (4.00-5.40); WHITE BLOOD COUNT 5.6 10^3/uL (4.0-10.0)
--- NOTE | 2019-11-16 15:34 | ECGEPIP ---
SINUS RHYTHM MARKED RIGHT AXIS DEVIATION LOW QRS VOLTAGE IN EXTREMITY LEADS INCOMPLETE RIGHT BUNDLE BRANCH BLOCK POSSIBLE ANTERIOR MYOCARDIAL INFARCTION, OF INDETERMINATE AGE ABNORMAL ECG PROLONGED QTC NONSPECIFIC ST & T CHANGES NO PRIOR DUE TO DOWNTIME SEE SCANNED DOWNTIME REPORT MTDD
[2019-11-26 20:06] LABS: BASO # 0.1 10^3/uL (0.0-0.2); BASO % 0.9 % (0.0-1.0); EOS # 0.3 10^3/uL (0.0-0.5); EOS % 3.8 % (0.0-3.0); HEMATOCRIT 33.6 % (36.0-47.0); HEMOGLOBIN 11.1 g/dl (12.0-15.5); LYMPH # 1.5 10^3/uL (1.5-5.0); LYMPH % 22.3 % (24.0-44.0); MEAN CORPUSCULAR HEMOGLOBIN 35.5 pg (27.0-33.0); MEAN CORPUSCULAR VOLUME 107.3 fl (80.0-96.0); MONO # 0.9 10^3/uL (0.0-0.8); MONO % 13.1 % (0.0-5.0); NEUTROPHILS % 59.6 % (36.0-66.0); PLATELET COUNT, AUTOMATED 162 10^3/uL (150-450); RED BLOOD COUNT 3.13 10^6/uL (4.00-5.40); WHITE BLOOD COUNT 6.6 10^3/uL (4.0-10.0)
[2019-11-26 20:06] LABS: HEMATOCRIT 33.7 % (36.0-47.0); HEMOGLOBIN 11.1 g/dl (12.0-15.5); MEAN CORPUSCULAR HEMOGLOBIN 35.7 pg (27.0-33.0); MEAN CORPUSCULAR HGB CONC 32.9 g/dl (32.0-36.5); MEAN CORPUSCULAR VOLUME 108.4 fl (80.0-96.0); PLATELET COUNT, AUTOMATED 152 10^3/uL (150-450); RED BLOOD COUNT 3.11 10^6/uL (4.00-5.40); WHITE BLOOD COUNT 6.3 10^3/uL (4.0-10.0)
[2019-12-30 11:40] LABS: CALCIUM LEVEL 7.8 MG/DL (8.5-10.1); CREATININE FOR GFR 7.74 MG/DL (0.55-1.30); GLOMERULAR FILTRATION RATE 6.1 (>58)
[2019-12-30 11:40] LABS: ALBUMIN 3.2 GM/DL (3.2-5.2); BILIRUBIN,TOTAL 0.6 MG/DL (0.2-1.0); CALCIUM LEVEL 7.7 MG/DL (8.5-10.1); CREATININE FOR GFR 8.05 MG/DL (0.55-1.30); GLOMERULAR FILTRATION RATE 5.8 (>58); HEMOGLOBIN A1c 8.3 %; MAGNESIUM LEVEL 3.3 MG/DL (1.8-2.4); POTASSIUM SERUM 6.3 MEQ/L (3.5-5.1); TOTAL PROTEIN 7.3 GM/DL (6.4-8.2)
== END 2019-10-15 12:50 | disposition home or self-care (01) | DRG 70 ==
LOC: M ED 00:16 → M PCU 07:58
PROVIDERS: ADMIT Internal Medicine; ATTEND Internal Medicine
PROC: 5A1D70Z Performance of Urinary Filtration, Intermittent, Less than 6 Hours Per Day (ICD-10-PCS; principal; 2019-10-14)
DX: G93.40 Encephalopathy, unspecified (principal); N18.6 End stage renal disease; I12.0 Hypertensive chronic kidney disease with stage 5 chronic kidney disease or end stage renal disease; N25.81 Secondary hyperparathyroidism of renal origin; E87.5 Hyperkalemia; Z91.15 Patient's noncompliance with renal dialysis; Z79.899 Other long term (current) drug therapy; E10.9 Type 1 diabetes mellitus without complications; R19.7 Diarrhea, unspecified; F32.9 Major depressive disorder, single episode, unspecified

== ENCOUNTER → 2020-04-13 | Outpatient (REF) | payer MEDICARE, BC ==
[~2020-04-13] MED LIST changes: +ESCI10TA16 PO; -ESCI10TA2 PO
== END ==
LOC: M LAB REF 15:01
PROVIDERS: ATTEND Physician Assistant Medical
DX: Z20.822 Contact with and (suspected) exposure to COVID-19 (principal)

== ENCOUNTER 2020-06-09 22:26 | Inpatient (IN) | payer MEDICARE, BC ==
[~2020-06-09] VITALS: Ht 162.6 cm; Wt 69.8 kg
[2020-06-09] MEDS ORDERED: LOSA100T50 PO (23:10)
[2020-06-10] MEDS ORDERED: ACETAMINOPHEN TAB 650MG DOSE (2X325MG) PO ONE (00:15)
[2020-06-10 00:21] LABS: BASO # 0.1 10^3/uL (0.0-0.2); BASO % 0.6 % (0.0-1.0); EOS # 0.2 10^3/uL (0.0-0.5); EOS % 2.2 % (0.0-3.0); HEMATOCRIT 36.8 % (36.0-47.0); HEMOGLOBIN 11.5 g/dl (12.0-15.5); LYMPH # 0.6 10^3/uL (1.5-5.0); LYMPH % 7.4 % (24.0-44.0); MEAN CORPUSCULAR HEMOGLOBIN 33.4 pg (27.0-33.0); MEAN CORPUSCULAR HGB CONC 31.3 g/dl (32.0-36.5); MONO # 0.5 10^3/uL (0.0-0.8); MONO % 5.3 % (2.0-8.0); NEUTROPHILS # 7.2 10^3/uL (1.5-8.5); NEUTROPHILS % 84.1 % (36.0-66.0); PLATELET COUNT, AUTOMATED 152 10^3/uL (150-450); RED BLOOD COUNT 3.44 10^6/uL (4.00-5.40); WHITE BLOOD COUNT 8.6 10^3/uL (4.0-10.0)
[2020-06-10 00:29] LABS: CALCIUM LEVEL 9.6 MG/DL (8.5-10.1); CREATININE FOR GFR 4.05 MG/DL (0.55-1.30); GLOMERULAR FILTRATION RATE 12.8 (>58); POTASSIUM SERUM 4.7 MEQ/L (3.5-5.1)
--- NOTE | 2020-06-10 01:00 | REPVR ---
PROCEDURE INFORMATION: Exam: XR Chest Exam date and time: 06/10/2020 12:24 AM Age: 44 years old Clinical indication: Fever TECHNIQUE: Imaging protocol: XR of the chest. Views: 1 view. COMPARISON: CT Chest without contrast 10/14/2019 5:39 AM FINDINGS: Lungs: Mild bilateral perihilar and infrahilar infiltrates. Mild right base infiltrates or atelectasis appear focally greater than other areas of the lungs. Pleural spaces: Mild right pleural effusion. Heart/Mediastinum: The heart and mediastinum are unchanged. Bones/joints: Unremarkable. IMPRESSION: Mild right pleural effusion with bilateral perihilar and infrahilar infiltrates which may reflect congestive failure or fluid overload which may be similar to 10/14/2019. Infiltrates or atelectasis appear focally greater in the right base and overlying pneumonia is not excluded. Electronically signed by: Dain Cortez On 06/10/2020 01:00:27 AM
--- NOTE | 2020-06-10 02:47 | REPVR ---
PROCEDURE INFORMATION: Exam: CT Chest Without Contrast; Diagnostic Exam date and time: 06/10/2020 2:15 AM Age: 44 years old Clinical indication: Fever; Additional info: Fuo TECHNIQUE: Imaging protocol: Diagnostic computed tomography of the chest without contrast. Radiation optimization: All CT scans at this facility use at least one of these dose optimization techniques: automated exposure control; mA and/or kV adjustment per patient size (includes targeted exams where dose is matched to clinical indication); or iterative reconstruction. COMPARISON: CT Chest without contrast 10/14/2019 5:39 AM FINDINGS: Lungs: Moderate right lower lobe and mild right middle lobe atelectasis or consolidation with mild scattered infiltrates and minimal fibro-atelectatic change in the remaining aerated lungs bilaterally. Pleural spaces: Mild right pleural effusion and trace left pleural effusion. Heart: Trace pericardial fluid. Aorta: Unremarkable. No aortic aneurysm. Lymph nodes: Unremarkable. No enlarged lymph nodes. Intraperitoneal space: Minimal peritoneal ascites is noted in the upper abdomen. Bones/joints: Unremarkable. No acute fracture. Soft tissues: Skin thickening of the breasts bilaterally, left greater than right. Diffuse subcutaneous edema about the chest and upper abdomen. IMPRESSION: 1. Mild right pleural effusion which is slightly increased since 10/14/2019 and new trace left pleural effusion since the prior study. There is moderate right lower lobe and mild right middle lobe atelectasis or consolidation which is similar and mild scattered bilateral areas of infiltrate and fibro-atelectatic change which are new and may reflect interval congestive failure or fluid overload. Pneumonia is not excluded. 2. Trace pericardial fluid which is slightly increased since the prior study. 3. Skin thickening of the breasts bilaterally which may reflect cellulitis or previous radiation. 4. Minimal peritoneal ascites and diffuse subcutaneous edema which may reflect generalized anasarca. Electronically signed by: Dain Cortez On 06/10/2020 02:48:14 AM
--- NOTE | 2020-06-10 02:53 | REPVR ---
PROCEDURE INFORMATION: Exam: CT Abdomen And Pelvis Without Contrast Exam date and time: 06/10/2020 2:15 AM Age: 44 years old Clinical indication: Fever; Patient HX: Failed renal transplant HX; Additional info: Fuo TECHNIQUE: Imaging protocol: Computed tomography of the abdomen and pelvis without contrast. Radiation optimization: All CT scans at this facility use at least one of these dose optimization techniques: automated exposure control; mA and/or kV adjustment per patient size (includes targeted exams where dose is matched to clinical indication); or iterative reconstruction. COMPARISON: CT ABD PELVIS W/O CONTRAST 07/14/2019 2:36 PM FINDINGS: Liver: Normal. No mass. Gallbladder and bile ducts: There are multiple gallstones in the gallbladder which is somewhat contracted. Pancreas: Pancreatic atrophy for age. Spleen: Normal. No splenomegaly. Adrenal glands: Slight fullness of the adrenals. Kidneys and ureters: Moderate bilateral renal atrophy. Stomach and bowel: Unremarkable. No obstruction. No mucosal thickening. Appendix: There are no changes of appendicitis. A normal appendix is not seen. Intraperitoneal space: Mild peritoneal ascites. Vasculature: Unremarkable. No abdominal aortic aneurysm. Lymph nodes: Unremarkable. No enlarged lymph nodes. Urinary bladder: Unremarkable as visualized. Reproductive: Unremarkable as visualized. Bones/joints: Unremarkable. No acute fracture. Soft tissues: Subcutaneous edema about the abdomen and pelvis. IMPRESSION: 1. Mild peritoneal ascites and subcutaneous edema about the abdomen and pelvis which may reflect generalized anasarca. The ascites appears slightly decreased since the prior study. 2. Cholelithiasis with a somewhat contracted gallbladder. 3. Pancreatic atrophy for age. 4. Moderate bilateral renal atrophy. Electronically signed by: Dain Cortez On 06/10/2020 02:54:17 AM
--- NOTE | 2020-06-10 03:47 | REPVR ---
PROCEDURE INFORMATION: Exam: US Duplex Lower Extremity Veins, Bilateral Exam date and time: 06/10/2020 3:38 AM Age: 44 years old Clinical indication: Edema, localized; Lower extremity, bilateral; Additional info: R/O dvt TECHNIQUE: Imaging protocol: Real-time duplex ultrasound of the extremities with 2-D moreau scale, color Doppler flow and spectral waveform analysis with image documentation. Complete exam focused on the bilateral lower extremity veins. COMPARISON: US Duplex, Ext LOWER veins, bilat 07/14/2019 7:36 PM FINDINGS: Right deep veins: Unremarkable. The common femoral, femoral, proximal profunda femoral and popliteal veins are patent without thrombus. Normal Doppler waveforms. Normal compressibility and/or augmentation response. Right superficial veins: Saphenofemoral junction is patent without thrombus. Left deep veins: Unremarkable. The common femoral, femoral, proximal profunda femoral and popliteal veins are patent without thrombus. Normal Doppler waveforms. Normal compressibility and/or augmentation response. Left superficial veins: Saphenofemoral junction is patent without thrombus. Soft tissues: Unremarkable. IMPRESSION: Negative bilateral lower extremity venous duplex exam without evidence of deep venous thrombosis. Electronically signed by: Dain Cortez On 06/10/2020 03:48:08 AM
[2020-06-10] MEDS ORDERED: INSUHUMDS SC (05:11)
[2020-06-10] MEDS ORDERED: VANCOMYCIN HCL 1,000 MG, VIAL MATE ADAPTER 1 EACH in NS 250 ML IV SCH ×2 (05:35→18:00)
[2020-06-10 06:00] VITALS: BP 105/44
[2020-06-10] MEDS ORDERED: VANCOMYCIN INTERMITTENT/PULSE DOSING BY CLINICAL PHARMACIST PER DOSING PROTOCOL XX SCH (06:00)
[2020-06-10] MEDS ORDERED: GLUCOSE 4GM CHEW TABLET PO PRN (06:05)
[2020-06-10] MEDS ORDERED: GLUCAGON INJ 1MG VIAL SC PRN (06:05)
[2020-06-10] MEDS: CEFEPIME HCL 2 GM in D5W MINI-BAG PLUS 50 ML IV SCH (06:39)
[2020-06-10] MEDS ORDERED: VANCOMYCIN HCL 750 MG, VIAL MATE ADAPTER 1 EACH in NS 250 ML IV ONE (07:00)
[2020-06-10 07:10] LABS: C REACTIVE PROTEIN QUANTITATIV 3.32 MG/DL (0.00-0.30); THYROID STIMULATING HORMONE 4.99 uIU/ML (0.358-3.740)
[2020-06-10 08:00] VITALS: BP 120/55
[2020-06-10] MEDS ORDERED: VANCOMYCIN HCL 500 MG in D5W MINI-BAG PLUS 100 ML IV ONE (08:00)
[2020-06-10] MEDS: HumaLOG INSULIN (NovoLOG) PER UNIT SC SCH ×3 (08:12→17:30)
[2020-06-10] MEDS: LOSARTAN 50MG TABLET PO SCH (08:12)
[2020-06-10] MEDS: HEPARIN SOD (PORCINE) 5000UNITS/ML 1ML VIAL/SYRINGE SC SCH ×2 (08:12→21:04)
[2020-06-10] MEDS: HumuLIN N INSULIN (NovoLIN N) PER UNIT SC SCH ×2 (08:12→17:30)
[2020-06-10 08:17] LABS: FREE T4 1.11 NG/DL (0.76-1.46)
--- NOTE | 2020-06-10 08:54 | REP ---
INDICATION: r/o OM in DMI pt w/ulcers COMPARISON: None. TECHNIQUE: AP, lateral, bilateral oblique views left foot. FINDINGS: Patient is noted to be status post prior amputation at the base of the 5th metatarsal bone. Remaining osseous structures demonstrate mild chronic appearing osteopenia/heterogeneity and degenerative changes. No periosteal reaction is identified to suggest osteomyelitis by radiographic evaluation. Small vessel disease noted suggesting diabetes. IMPRESSION: Relatively chronic appearing changes. No obvious periosteal reaction to suggest osteomyelitis by radiographic evaluation. <Electronically signed by Merrick Vivar > 06/10/20 [id number]
--- NOTE | 2020-06-10 09:09 | HPEPDOC ---
[facility] Medical History & Physical Date of Admission Jun 10, 2020 Date of Service: Jun 10, 2020 Primary Care Physician: JACINDA MAGANA MD Attending Physician: GIL FRANCO MD History and Physical CHIEF COMPLAINT: Chills and nausea HISTORY OF PRESENT ILLNESS: Italia is a 44yo female with extensive PMHx notable for type 1 diabetes with retinopathy and end-stage renal disease on hemodialysis (TuTrSa), who was brought to the ED late on the evening of 06/09/20 by her after experiencing significant chills and nausea since earlier in the afternoon. The patient had an issue with her regularly scheduled Tuesday (06/07) hemodialysis session that necessitated a makeup session on Tuesday (06/09) afternoon. She began hemodialysis approximate around 3:30 PM and roughly 1 hour into the session, developed chills and nausea. She completed the hemodialysis and reports her "usu al amount of fluid was removed." She left the facility around 8 PM and continued to have the chills and nausea. When she returned home. Around 10:15 PM, the patient's reported she looked "sick" and decided she needed to come to the ED. In addition to the chills and nausea, she has had a nonproductive cough for the past month or so and also reports chronic orthopnea. She reports feeling these types of symptoms before when she was suffering from food poisoning. She did also have some slight abdominal cramping towards the end of the dialysis session. On presentation to the emergency department, she was afebrile with a temperature of 101. She was administered oral Tylenol and her temperature actually increased to 102.4. Upon follow-up later in the ED, he remained elevated at 102.2. She is also hypertensive with pressure of 191/94. She was saturating well, but on 2 L nasal cannula, which she does not use at home. There was bilateral erythema and warmth of lower extremities with some mild fluid distention of the abdomen. Interestingly, she did not have a white count (WBC 8.6) , although she did have a neutrophil predominance. Other notable labs were corrected. Sodium 133, potass ium 4.7, bicarbonate of 36, BUN of 44, creatinine of 4.05. A urine culture was obtained as well as 2 blood cultures which are pending. Apparently, the patient is able to urinate only every other day and the scant amount of urine that she was able to produce in the ED did not allow for urinalysis. Both a chest x-ray and CT chest showed persistent right pleural effusion that appeared slightly worse than last imaging in September 2019, along with mild to moderate ascites, and some generalized pulmonary congestion suggesting fluid buildup more so than any acute infiltrative process. It is important to note. Pleural fluid build-up is a chronic issue, as records indicate she underwent a thoracentesis during a June 2019 admission, which removed 600 mL. Bilateral lower extremity ultrasounds were both negative for DVT. The patient was ultimately admitted under the care of the hospitalist service for fever and left shift, most likely secondary to lower extremity cellulitis versus erysipelas with ulcers over the left foot. There may also be an element of pulmonary infection. Admits her chronic pleural effusion and atelectasis. The patient's primary care provider is Dr. Jacinda Magana. She follows with [facility] for her hemodialysis. She verbally confirms in the ED that she is a full code. She follows with a vascular surgeon in [place] (Dr. Ndiaye) who oversees her fistula and she has a planned fistulogram on 06/18/20. She follows with a Dr. Andino for podiatry in [place], [place]. PAST MEDICAL HISTORY: End-stage renal disease on hemodialysis (Tuesday, , Tuesday); has been on dialysis August 2014 Type 1 diabetes with diabetic retinopathy and the presence of macular edema, diagnosed at 21 years old. Renovascular hypertension. Iron deficiency anemia. Chronic macrocytosis. Mixed hyperlipidemia Vitreous hemorrhage left eye. Alopecia. Seasonal allergies. 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 She is status post left fifth toe amputation on 10/25/13 (with Dr. Meneses) Left eye surgery in February 2015 Bilateral cataract removal in July 2009 She had a catheter removed on 05/13/2015 SOCIAL HISTORY: She is disabled and lives with her in [place]. 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 She denies any current or former tobacco product use, alcohol use, or illicit drug/IV drug use FAMILY HISTORY: Father: Living; hypertension, diabetes type 2. Mother: Living. Maternal grandfather: Brain, kidney, and prostate cancer. Maternal grandmother: Pancreatic cancer Maternal uncle: Skin cancer ALLERGIES: Please see below. REVIEW OF SYSTEMS: CONSTITUTIONAL: Did not feels that she had a fever prior to presentation. Reported chills for the past day. Denied any night sweats or recent unintentional change in weight CARDIOVASCULAR: Denies chest pain, chest pressure, or palpitations RESPIRATORY: Denies increased work of breathing or feeling short of breath, or pleuritic chest pain. She does report chronic orthopnea, as well as a nonproductive cough over the last month. GASTROINTESTINAL: Reports nausea today, as well as some abdominal cramping towards the end of hemodialysis. Denies any emesis, constipation, diarrhea, or blood in stool. GENITOURINARY: Reports she only produces urine once every other day and it is a small amount. Denies any dysuria or hematuria. SKIN: Reports that over the past few months she has had intermittent episodes of redness of bilateral lower extremities with associated swelling. ENDOCRINE: Reports significant chills/cold intolerance over the past day. LYMPHATIC: Denies any new lumps or bumps. HOME MEDICATIONS: Please see below. PHYSICAL EXAMINATION: VITAL SIGNS please see below. GENERAL APPEARANCE: Pleasant female who appears older than stated age. She is quite pale. She seems tired. She is alert and oriented 3. Wearing nasal cannula supplement oxygen. HEENT: Pale face with some vertex scalp . Mild alopecia. Atraumatic. Nonin jected, anicteric sclera. PERRLA. Wearing supplemental oxygen. ORAL CAVITY: Significant halitosis. Mildly dry mucous membranes with no visualized erythema or exudate. NECK: Trachea midline. No lymphadenopathy appreciated. Some scarring over the right side of her neck. Mild JVD. CARDIOVASCULAR: There appears to be a 2/6 systolic murmur versus background noise of her left arm fistula. Borderline tachycardic rate, regular rhythm. Normal S1, S2. LUNGS: There is bilateral inspiratory crackles from approximately the mid lung moving inferiorly. There is decreased tidal volume with diminished breath sounds bilaterally, but moreso diminished over right lung. Symmetric chest expansion. Wearing 2 L nasal cannula of supplemental oxygen. Speaking full sentences. ABDOMEN: There appears to be some mild distention with fluid build-up/ascites. The skin is somewhat tough over the abdomen. There is some areas of hyperpigmentation scattered. There is also some prominent and well-healed vertical midline incisional scars. She has tenderness throughout the lower quadrants. There is no rigidity. Hyperactive bowel sounds are present.. There was no pre-sacral pitting edema appreciated MUSCULOSKELETAL: 5 out of 5 upper extremity muscle strength bilaterally. 4 out of 5 bilateral lotion every strength. EXTREMITIES: Skin across the body is warm to the touch but especially over her distal bilateral lower extremities where there is increased erythema. There is no pitting edema of the bilateral lower extremities, there is more so a fullness and tautness to the skin. There are 2 circumferential ulcers over the lateral aspect of the left foot. The one more proximal appears to be somewhat more prominent with some scant amount of possible visible. The left fifth toe has been agitated. There remains erythema and warmth over the dorsum and plantar aspects of both feet. Skin overall of lower extremities/feet is quite scaly and there are signs of chronic venous stasis. NEUROLOGICAL: Alert and oriented 3. No focal deficits. Appreciate. Non- dysarthric speech. PSYCHIATRIC: Somewhat downtrodden, exasperated mood at times during the exam. Affect appears appropriate. LABORATORY DATA: Please see below. IMAGING: Chest x-ray, 06/10/20 IMPRESSION: Mild right pleural effusion with bilateral perihilar and infrahilar infiltrates which may reflect congestive failure or fluid overload which may be similar to 10/14/2019. Infiltrates or atelectasis appear focally greater in the right base and overlying pneumonia is not excluded. CT abdomen and pelvis, 06/10/20 IMPRESSION: 1. Mild peritoneal ascites and subcutaneous edema about the abdomen and pelvis which may reflect generalized anasarca. The ascites appears slightly decreased since the prior study. 2. Cholelithiasis with a somewhat contracted gallbladder. 3. Pancreatic atrophy for age. 4. Moderate bilateral renal atrophy. CT chest, 06/10/20 IMPRESSION: 1. Mild right pleural effusion which is slightly increased since 10/14/2019 and new trace left pleural effusion since the prior study. There is moderate right lower lobe and mild right middle lobe atelectasis or consolidation which is similar and mild scattered bilateral areas of infiltrate and fibro-atelectatic change which are new and may reflect interval congestive failure or fluid overload. Pneumonia is not excluded. 2. Trace pericardial fluid which is slightly increased since the prior study. 3. Skin thickening of the breasts bilaterally which may reflect cellulitis or previous radiation. 4. Minimal peritoneal ascites and diffuse subcutaneous edema which may reflect generalized anasarca. Bilateral lower extremity venous ultrasound, 06/10/20 IMPRESSION: Negative bilateral lower extremity venous duplex exam without evidence of deep venous thrombosis. MICROBIOLOGY: Please see below. ASSESSMENT & PLAN: This is a 44yo female w/ medical hx most notable for Type I DM with retinopathy s/p failed pancreas and kidney transplants, ESRD on HD (TuThurSa), htn who presented to the ED late in the evening of 06/09/20 after developing chills and nausea while undergoing afternoon outpt HD. She was febrile likely as a result of LE infection (cellulitis vs erysipelas & foot ulcers) w/ possible underlying pneumatic infection amidst chronic right pleural effusion and atelectasis. #Fever likely 2/2 LE cellulitis/erysipelas vs acute pneumatic infection -Tmax of 102.4 but did not improve with initial oral Tylenol. No white count but did have neutrophil predominance/left shift. -Bilateral lower extremities are red and warm and tense; with 2 ulcers on the ou tside of left foot. Cultures obtained from the ulcers, with bedside wound care ordered. -Elevation of lower extremities ordered. -Initially was going to start antimicrobial therapy in the form of vancomycin and cefepime. Vancomycin for MRSA empirically and cefepime for pseudomonas in the setting of the diabetic ulcers. Patient reported she has hallucinations with vancomycin, therefore, switched to a regimen of doxycycline and cefepime. -2 blood cultures are pending and a urine culture is pending. A sputum culture was subsequently ordered. -Left foot, complete x-rays ordered to rule out osteomyelitis. -ESR and CRP ordered -MRSA PCR screen ordered -Patient has chronic right pleural effusion as well as right atelectasis. As a result, acute pneumatic infection could not be ruled out from imaging. She has had a history of needing thoracentesis of the pleural effusion the past. Of note, requiring supplemental oxygen in the ED, and does not use as outpatient. #ESRD on HD TuThSa, s/p failed kidney transplant -Underwent makeup hemodialysis on Tuesday, 06/09. Will be due for her regular hemodialysis today. -A consultation has been made to the nephrology service and we sincerely thank them for their recommendations moving forward. -Has been on hemodialysis since August 2014 -Despite having hemodialysis yesterday, a-appeared on exam to have some mild ascites. -Home veltassa and vitamin D continued #Type 1 DM with retinopathy, s/p failed pancreas transplamt -Sliding-scale insulin and fingerstick ordered before meals and at bedtime -Up with glycemic protocol -2 g sodium and consistent carb diet -Her home NPH insulin dosing twice a day was cut in half #Renovascular HTN -2 g and consistent carb diet -Home losartan continued #Macrocytic anemia -B12 and folate ordered -Patient denied any significant alcohol use history #Abnormal TSH -Free T4 ordered -Patient has no known history of thyroid pathology #Depression -Home escitalopram continued #DVT prophylaxis: Subcutaneous heparin every 12 hours Code status: Full Code Disposition: Admit to PCU with telemetry with expected at least to midnight stay pending further workup for source of fever and lower extremity warmth and swelling. Vital Signs Vital Signs Date Time Temp Pulse Resp B/P (MAP) Pulse Ox O2 Delivery O2 Flow Rate FiO2 06/10/20 08:12 120/55 06/10/20 08:00 98.4 71 18 92 Nasal Cannula 1.0 Laboratory Data Labs 24H Laboratory Tests 2 06/09/20 23:59: Immature Granulocyte % (Auto) 0.4, Neutrophils (%) (Auto) 84.1H, Lymphocytes (%) (Auto) 7.4L, Monocytes (%) (Auto) 5.3, Eosinophils (%) (Auto) 2.2, Basophils (%) (Auto) 0.6, Neutrophils # (Auto) 7.2, Lymphocytes # (Auto) 0.6L, Monocytes # (Auto) 0.5, Eosinophils # (Auto) 0.2, Basophils # (Auto) 0.1, Nucleated Red Blood Cells % (auto) 0.0, Anion Gap 7L, Glomerular Filtration Rate 12.8L, Calcium Level 9.6 06/10/20 06:25: Erythrocyte Sedimentation Rate 45H, C-Reactive Protein, Quantitative 3.32H, Thy roid Stimulating Hormone (TSH) 4.990H, Free Thyroxine 1.11 06/10/20 06:26: Methicillin-Resist S.aureus DNA PCR NOT DETECTED 06/10/20 07:33: Bedside Glucose (Misc Panel) 233H CBC/BMP Laboratory Tests 06/09/20 23:59 Microbiology Microbiology 06/10/20 Gram Stain, Received Pending 06/10/20 Wound Culture, Received Pending 06/10/20 Gram Stain, Received Pending 06/10/20 Sputum Culture, Received Pending 06/10/20 Urine Culture, Received Pending 06/10/20 Respiratory Virus Panel (PCR) (MELIDA) - Final, Complete 06/09/20 Blood Culture, Received Pending 06/09/20 Blood Culture, Received Pending Home Medications Scheduled Doxycycline Monohydrate (Doxycycline) 100 Mg Capsule, 100 MG PO BID Ergocalciferol (Vitamin D2) (Vitamin D2) 50,000 Units Cap, 50,000 UNITS PO QWEEK WEDNESDAYS Escitalopram Oxalate (Lexapro) 10 Mg Tab, 10 MG PO QHS Fluconazole (Diflucan) 150 Mg Tablet, 1 TAB PO ONCE for yeast infection Insulin Human Lispro (Humalog) 100 Unit/1 Ml Vial, 1 DOSE SC ACHS PER SLIDING SCALE Insulin Human NPH (Humulin N) 100 Unit/1 Ml Vial, 8 UNITS SC BID Losartan Potassium (Losartan Potassium) 100 Mg Tablet, 100 MG PO DAILY Patiromer Calcium Sorbitex (Veltassa) 8.4 Gm Pow, 8.4 GM PO 4XWK TUESDAY, TUESDAY, TUESDAY AND TUESDAY (NON-DIALYSIS DAYS) Allergies Coded Allergies: vancomycin (Verified Adverse Reaction, Intermediate, Hallucinations, 06/10/20) A-FIB/CHADSVASC A-FIB History Current/History of A-Fib/PAF?: No Current PO Anticoag Therapy: No GME ATTESTATION GME ATTESTATION My faculty preceptor for this patient encounter was physically present during the encounter and was fully available. All aspects of the patient interview, examination, medical decision making process, and medical care plan development were reviewed and approved by the faculty preceptor. The faculty preceptor is aware and concurs with the plan as stated in the body of this note and will attest to such by his/her cosignature. ATTENDING NOTE I, A Yousef, have independently examined this patient and performed my own physical exam, as well as reviewed the documentation and edited where necessary. I have discussed in detail with the resident / student the findings and plan of treatment as documented by the resident / student and edited their note. I agree with their findings and treatment plan and have edited their documentation. I will continue to follow the patient during this hospital stay. JOSIAH HINSON D.O. Jun 10, 2020 09:09 GIL FRANCO MD Jun 17, 2020 06:45
--- NOTE | 2020-06-10 09:38 | IPNPDOC ---
Text Note Date of Service The patient was seen on 06/10/20. NOTE Subjective: No acute events overnight. Pt states that she is feeling slightly better than she did at the time of presentation. When asked further about her history, pt reports that she was receiving hemodialysis on Tuesday when her fistula infiltrated. Due to this, pt received HD yesterday when she developed chills. After dialysis, she went home when she had progressively worsening chills and nausea but no vomiting. Pt states that she usually get HD on , , and Tue. She reports that she has also developed SOB and a non productive cough that she has had for the past month. She reports that it feels similar as to when she previously had pleural effusions that had to be drained. Denies any chest pain, vomiting, diarrhea, constipation, abd pain, development of new rashes, dysuria, or hematuria. In regards to the ulcers on her BLE, she states that those have been present for "a while" and she has been receiving treatment from her mascara molder. She denies any increase in erythema, warmth, swelling, or pain to BLE. Objective: VITALS: See below. GENERAL: Pt is laying in bed. Appears fatigued. No acute distress. HEENT: NC/AT. EOMI. No scleral icterus. Conjunctiva and lids normal. CARDIOVASCULAR: Regular rate and rhythm. Thrill from fistula heard on auscultation. No gallops or rubs appreciated. PULMONARY: Slight decrease in breath sounds to R lower lobe. No wheezes, rales, or rhonchi appreciated. Pt has bouts of cough during examination. ABD: No tenderness to palpation. No guarding or rebound. Normoactive bowel sounds to all four quadrants. Well healed midline abdominal surgical scar. EXTREMITIES: BLE erythematous and warm to the knees. Dressing in place over lateral aspect of feet bilaterally. No tenderness to palpation. Skin feels taught on palpation but no pitting edema appreciated. Fistula to L arm, thrill present. NEURO: No focal neurological deficits. Imaging: CXR (06/10/20) Mild right pleural effusion with bilateral perihilar and infrahilar infiltrates which may reflect congestive failure or fluid overload which may be similar to 10/14/2019. Infiltrates or atelectasis appear focally greater in the right base and overlying pneumonia is not excluded. CT Abd/Pelvis (06/10/20) 1. Mild peritoneal ascites and subcutaneous edema about the abdomen and pelvis which may reflect generalized anasarca. The ascites appears slightly decreased since the prior study. 2. Cholelithiasis with somewhat contracted gallbladder. 3. Pancreatic atrophy for age. 4. Moderate bilateral renal atrophy. CT Chest (06/10/20) 1. Mild right pleural effusion which is slightly increased since 10/14/2019 and new trace left pleural effusion since the prior study. There is moderate right lower lobe and mild right middle lobe atelectasis or consolidation which is similar and mild scattered bilateral areas of infiltrate and fibroatelectatic change which are new and may reflect interval congestive failure or fluid overl oad. Pneumonia is not excluded. 2. Trace pericardial fluid which is slightly increased since the prior study. 3. Skin thickening of the breasts bilaterally which may reflect cellulitis or previous radiation. 4. Minimal peritoneal ascites and diffuse subcutaneous edema which may reflect generalized anasarca. US Duplex Lower Extremity Veins, Bilateral (06/10/20) Negative bilateral lower extremity venous duplex exam without evidence of deep vein thrombosis. Foot XR (06/10/20) Relatively chronic appearing changes. No obvious periosteal reaction to suggest osteomyelitis by radiographic evaluation. Assessment/Plan: Pt is a 44 year old female with PMH of T1DM, ESRD on HD (Tue, , Tue), renovascular HTN, mixed hyperlipidiemia, diabetic retinopathy, iron deficiency anemia who presented to the ED due to chills and nausea after receiving hemodialysis that day (Tuesday). Upon arrival to the ED it was noted that pt had a fever of 101.4 and was given Tylenol without resolution of fever (temp increased to 102.4). Pt was admitted for further evaluation of fever. #SIRS Criteria - Pt meets SIRS criteria - fever>100.4 and HR>90. - Possible sources of infection include cellulitis vs pleural effusion vs pneumonia. Pt is currently being treated for her foot ulcers by mascara molder and denies any increase in pain, erythema, edema, or warmth. BLE with erythema, warmth, and edema on examination causing suspicion for cellulitis, foot ulcers being a nidus of infection. CXR and CT chest show pleural effusion and concern for pneumonia. - Osteomyelitis ruled out with foot x-ray. - Blood cultures have been drawn and are pending. L foot ulcer has been cultured and is pending. Sputum culture pending. - Pt makes urine every other day and only enough urine was drawn for culture and not UA. Urine culture pending. - Respiratory panel negative. - Pt WBC WNL at 8.6 however she does have a neutrophil predominance with neut % at 84.1. - CRP elevated at 3.32. ESR elevated at 45. - It was initially planned to start pt on Vancomycin and Cefepime however, pt reports reaction to Vanc ("makes her delirious") so Vanc was switched to Doxy. Doxy and Cefepime gives coverage for MRSA and pseudomonas. - MRSA PCR has returned negative however will continue Doxy and Cefepime until cultures return. #Fever - Possible sources of infection include foot ulcers vs cellulitis vs pleural effusion vs pneumonia. Pt is currently being treated for her foot ulcers by mascara molder and denies any increase in pain, erythema, edema, or warmth. BLE with erythema, warmth, and edema on examination causing suspicion for cellulitis, foot ulcers being a nidus of infection. CXR and CT chest show pleural effusion and concern for pneumonia. - See above. - Tylenol PRN for fever. #ESRD on HD (Tue, , Tue) - Pt receives HD on Tuesdays, , and Saturdays. Pt had infiltration of fistula during HD on Tue so had to have HD session on Tuesday when her sx started. - K currently WNL at 4.7. - Nephrology has been consulted. - Will continue home medication Veltassa 8.4g SuMoWeFr at 0900 PO and vitamin D. #Type I DM - Sliding scale insulin with hypoglycemic protocol ordered. - Pt placed on consistent carb diet. #Renovascular hypertension - Pt has ESRD on HD. BP currently 120/55. - Will continue home medication of Losartan Potassium 100 mg PO daily. #Elevated TSH - Pt TSH elevated at 4.990. - Free T4 WNL at 1.11. - This is likely 2/2 ESRD causing abnormal metabolism and excretion of thyroid hormones. #Macrocytic anemia - B12 and folate ordered and pending. #Depression - Home escitalopram 10 mg PO QHS continued. DVT Prophylaxis: Heparin 5,000 units SC Q12H. Disposition: Pending clinical improvement. Nephrology has been consulted. Pt has been downg raded to med/surg with telemetry monitoring. VS,Fishbone, I+O VS, Fishbone, I+O Laboratory Tests 06/09/20 23:59 Vital Signs Date Time Temp Pulse Resp B/P (MAP) Pulse Ox O2 Delivery O2 Flow Rate FiO2 06/10/20 08:12 120/55 06/10/20 05:15 101.9 74 17 97 Nasal Cannula 1.5 I&O- Last 24 Hours up to 6 AM 06/10/20 06:00 Output Total 3 ml Balance -3 ml GME ATTESTATION GME ATTESTATION My faculty preceptor for this patient encounter was physically present during the encounter and was fully available. All aspects of the patient interview, examination, medical decision making process, and medical care plan development were reviewed and approved by the faculty preceptor. The faculty preceptor is aware and concurs with the plan as stated in the body of this note and will attest to such by his/her cosignature. ATTENDING NOTE I, Dave Osborne MD, have independently examined this patient and performed my own physical exam, as well as reviewed the documentation and edited where necessary. I have discussed in detail with the resident / student the findings and plan of treatment as documented by the resident / student and edited their note. I agree with their findings and treatment plan and have edited their documentation. Tatyana SEE S-3 Jun 10, 2020 08:46 DAVE OSBORNE MD Jun 13, 2020 15:50
[2020-06-10] MEDS: DOXYCYCLINE HYCLATE 100 MG in D5W MINI-BAG PLUS 100 ML IV SCH ×2 (09:43→21:04)
[2020-06-10] MEDS ORDERED: ACETAMINOPHEN TAB 650MG DOSE (2X325MG) PO PRN (09:50)
[2020-06-10 10:42] LABS: FOLATE 12.7 NG/ML (>5.4)
[2020-06-10 12:01] VITALS: BP 127/57
[2020-06-10] MEDS ORDERED: LIDOCAINE 1% SDV 5ML VIAL SC PRN (13:00)
[2020-06-10] MEDS ORDERED: SODIUM CHLORIDE 0.9% 1000ML IV PRN (13:00)
--- NOTE | 2020-06-10 15:59 | CR.PDOC ---
General Date of Consultation: Jun 10, 2020 Attending Physician: JEFE FLORES DO Consultation REASON FOR CONSULTATION/CHIEF COMPLAINT: ESRD HISTORY OF PRESENT ILLNESS: Italia Nye is a 44 YO F with ESRD on HD, T1DM, who reported to the [facility] ED on 06/09/2020 for nausea, vomiting, chills. Her last hemodialysis session is reportedly 06/07/2020 where there was issue with access of her fistula. The session had to be cut short. During her makeup session, she experienced some feelings of fatigue, nausea, chills but no vomiting. She did have the same amount of fluid removed as normal, returning to her baseline dry weight. She denies any recent illnesses, no sick contacts, nor any recent travel. She does report difficulty ambulating for the past few weeks due to a nonhealing ulcer on her foot. She has been reportedly undergoing dialysis as frequently as prescribed. ALLERGIES: Please see below. HOME MEDICATIONS: Please see below. PAST MEDICAL HISTORY: ESRD on hemodialysis T/T/S Type 1 diabetes Hypertension Iron deficiency anemia, etiology unknown Chronic macrocytosis Hyperlipidemia Alopecia Seasonal allergies History of abnormal uterine bleeding PAST SURGICAL HISTORY: History of kidney and pancreas transplant, failed 2017 Left arm fistula, Left fifth toe amputation, 2013 Left eye surgery, 2015 cataract surgery, 2009 FAMILY HISTORY: Father: Living; hypertension, diabetes type 2. Mother: Living. Maternal grandfather: Brain, kidney, and prostate cancer. Maternal grandmother: Pancreatic cancer Maternal uncle: Skin cancer SOCIAL HISTORY: She is disabled and lives with her in [place]. 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 She denies any current or former tobacco product use, alcohol use, or illicit drug/IV drug use REVIEW OF SYSTEMS: Constitutional: Reports fevers, chills, nausea ENT/Mouth: No Hearing Changes, No Ear Pain, No Nasal Congestion, No Sinus Pain, No Hoarseness, No sore throat, No Rhinorrhea, No Swallowing Difficulty Eyes: No Eye Pain, No Swelling, No Redness, No Foreign Body, No Discharge, No Vision Changes Cardiovascular: No Chest Pain, No SOB, No PND, No Dyspnea on Exertion, No Orthopnea, No Claudication, No Edema, No Palpitations Respiratory: No Cough, No Wheezing, No Smoke Exposure, No Dyspnea Gastrointestinal: Reports nausea, vomiting, denies diarrhea/constipation Musculoskeletal: No Arthralgias, No Myalgias, No Joint Swelling, No Joint Stiffness, No Back Pain, No Neck Pain, No Injury History Skin: Reports nonhealing ulcer on left foot, No Pruritis Neuro: No Weakness, No Numbness, No Paresthesias, No Loss of Consciousness, No Syncope, No Dizziness, No Headache, No Coordination Changes, No Recent Falls Psych: No Anxiety/Panic, No Depression, No Insomnia, No Personality Changes, No Delusions Heme/Lymph: No Bruising, No Bleeding, No Transfusions History, No Lymphadenopathy Endocrine: No Polyuria, No Polydipsia, No Temperature Intolerance PHYSICAL EXAMINATION: VITAL SIGNS: see below GENERAL: alert and oriented, in no apparent distress, pleasant and conversant in full sentences. HEENT: PERRL, EOMI, Oral mucous membranes are moist without lesions. NECK: The patient has mildly elevated JVD. No adenopathy is appreciated. No thyromegaly CHEST/LUNGS: Crackles are appreciated at the bases bilaterally. There is no subcutaneous air appreciated. There is no tenderness to the chest wall. HEART:Regular rate and rhythm. There is a 3/6 systolic ejection murmur heard best in the right upper sternal border. Distal pulses are 2+. No carotid bruits appreciated. ABDOMEN: Soft, nontender, and nondistended. Bowel sounds are positive. No organomegaly is appreciated. No masses are appreciated. There are no peritoneal signs. There is no [place] sign. EXTREMITIES: No peripheral edema. There are 2 ulcers on the left foot with surrounding erythema concerning for infection. There is no focal long bone ten derness or deformity. SKIN: The patients skin is warm and dry, without rashes or lesions. PSYCHIATRIC: AAO x 3, normal mood/affect NEUROLOGIC: The patient has 5/5 strength to the upper and lower extremities bilaterally. Sensation is intact throughout. Deep tendon reflexes are 2+ in all four extremities. There are no deficits to the cranial nerves. LABORATORY DATA: Please see below. ASSESSMENT/PLAN: This is a 44-year-old female with end-stage renal disease on hemodialysis, type 1 diabetes who presents with several days subjective fevers, chills, nausea found to have nonhealing ulcers on her left foot concerning for infection. 1. End-stage renal disease on hemodialysis: -Shhe was dialyzed yesterday but we plan for hemodialysis today as well to keep her on her maintenance schedule and as patient appears fluid overloaded with crackles and abdominal ascites and is on nasal cannula -Electrolytes within normal limits otherwise -Continue Veltassa as prescribed, 4x weekly 2. Fever, possible lower extremity infection: -WBC 8.6 this morning -Agree with current antibiotic choice cefepime and doxycycline 3. Hypertension: -Blood pressures within normal limits -Continue home losartan 4. Secondary hyperparathyroidism: -continue binders and renal diet. 5. Anemia of Chronic Kidney disease and inflammation: -Continue aranesp with HD for goal Hgb 10-11 DISPO: HD today, pending clinical improvement Vital Signs/I&O Vital Signs Date Time Temp Pulse Resp B/P (MAP) Pulse Ox O2 Delivery O2 Flow Rate FiO2 06/10/20 12:01 97.5 64 20 127/57 (80) 95 Nasal Cannula 1.0 I&O- Last 24 Hours up to 6 AM 06/10/20 06:00 Intake Total 360 ml Output Total 3 ml Balance 357 ml Laboratory Data Labs 24H Laboratory Tests 2 06/09/20 23:59: Immature Granulocyte % (Auto) 0.4, Neutrophils (%) (Auto) 84.1H, Lymphocytes (%) (Auto) 7.4L, Monocytes (%) (Auto) 5.3, Eosinophils (%) (Auto) 2.2, Basophils (%) (Auto) 0.6, Neutrophils # (Auto) 7.2, Lymphocytes # (Auto) 0.6L, Monocytes # (Auto) 0.5, Eosinophils # (Auto) 0.2, Basophils # (Auto) 0.1, Nucleated Red Blood Cells % (auto) 0.0, Anion Gap 7L, Glomerular Filtration Rate 12.8L, Calcium Level 9.6 06/10/20 06:25: Erythrocyte Sedimentation Rate 45H, C-Reactive Protein, Quantitative 3.32H, Vitamin B12 Level 1050H, Folate 12.7, Thyroid Stimulating Hormone (TSH) 4.990H, Free Thyroxine 1.11 06/10/20 06:26: Methicillin-Resist S.aureus DNA PCR NOT DETECTED 06/10/20 07:33: Bedside Glucose (Misc Panel) 233H 06/10/20 11:44: Bedside Glucose (Misc Panel) 206H CBC/BMP Laboratory Tests 06/09/20 23:59 Microbiology Microbiology 06/10/20 Gram Stain - Final, Resulted 06/10/20 Wound Culture, Resulted Pending 06/10/20 Gram Stain, Ordered Pending 06/10/20 Sputum Culture, Ordered Pending 06/10/20 Urine Culture, Received Pending 06/10/20 Respiratory Virus Panel (PCR) (MELIDA) - Final, Complete 06/09/20 Blood Culture, Received Pending 06/09/20 Blood Culture, Received Pending Allergies Coded Allergies: vancomycin (Verified Adverse Reaction, Intermediate, Hallucinations, 06/10/20) Home Medications Scheduled Doxycycline Monohydrate (Doxycycline) 100 Mg Capsule, 100 MG PO BID for 4 Days, #8 Ergocalciferol (Vitamin D2) (Vitamin D2) 50,000 Units Cap, 50,000 UNITS PO QWEEK, (Reported) WEDNESDAYS Escitalopram Oxalate (Lexapro) 10 Mg Tab, 10 MG PO QHS, (Reported) Fluconazole (Diflucan) 150 Mg Tablet, 1 TAB PO ONCE for yeast infection for 1 Days, #1 Insulin Human Lispro (Humalog) 100 Unit/1 Ml Vial, 1 DOSE SC ACHS, (Reported) PER SLIDING SCALE Insulin Human NPH (Humulin N) 100 Unit/1 Ml Vial, 8 UNITS SC BID, (Reported) Losartan Potassium (Losartan Potassium) 100 Mg Tablet, 100 MG PO DAILY, (Reported) Patiromer Calcium Sorbitex (Veltassa) 8.4 Gm Pow, 8.4 GM PO 4XWK, (Reported) TUESDAY, TUESDAY, TUESDAY AND TUESDAY (NON-DIALYSIS DAYS) GME ATTESTATION GME ATTESTATION My faculty preceptor for this patient encounter was physically present during the encounter and was fully available. All aspects of the patient interview, examination, medical decision making process, and medical care plan development were reviewed and approved by the faculty preceptor. The faculty preceptor is aware and concurs with the plan as stated in the body of this note and will attest to such by his/her cosignature. ATTENDING NOTE Pt seen and examined w/ resident. I agree w/ above. Pt is seen on dialysis today w/ goal fluid removal of 2 kg. She is tolerating her routine HD treatment without issue. Fistula in good use. Volume status is improving and the pt is usually in state of fluid overload. FELISHA HANNAH MD Jun 10, 2020 15:57 JEFE FLORES DO Jun 26, 2020 04:58
[2020-06-10 19:00] VITALS: BP 158/89
[2020-06-10] MEDS ORDERED: HumaLOG INSULIN (NovoLOG) PER UNIT SC SCH (21:00)
[2020-06-10] MEDS: ESCITALOPRAM OXALATE 10 MG TAB (LEXAPRO) PO SCH (21:04)
[2020-06-11] MEDS ORDERED: ONDANSETRON 4MG/2ML VIAL IV PRN (03:40)
[2020-06-11] MEDS ORDERED: HumaLOG INSULIN (NovoLOG) PER UNIT SC ONE ×2 (03:45→05:00)
[2020-06-11 03:55] VITALS: BP 168/76
[2020-06-11 05:04] LABS: HEMATOCRIT 27.7 % (36.0-47.0); MEAN CORPUSCULAR HEMOGLOBIN 33.9 pg (27.0-33.0); MEAN CORPUSCULAR HGB CONC 31.4 g/dl (32.0-36.5); MEAN CORPUSCULAR VOLUME 107.8 fl (80.0-96.0); PLATELET COUNT, AUTOMATED 108 10^3/uL (150-450); RED BLOOD COUNT 2.57 10^6/uL (4.00-5.40); WHITE BLOOD COUNT 4.9 10^3/uL (4.0-10.0)
[2020-06-11 05:07] LABS: HEMOGLOBIN 8.7 g/dl (12.0-15.5)
[2020-06-11] MEDS: CEFEPIME HCL 2 GM in D5W MINI-BAG PLUS 50 ML IV SCH (05:27)
[2020-06-11] MEDS ORDERED: HumaLOG INSULIN (NovoLOG) PER UNIT SC STA (05:38)
[2020-06-11 05:39] LABS: ALBUMIN 2.9 GM/DL (3.2-5.2); BILIRUBIN,TOTAL 1.1 MG/DL (0.2-1.0); CALCIUM LEVEL 8.3 MG/DL (8.5-10.1); CREATININE FOR GFR 3.87 MG/DL (0.55-1.30); GLOMERULAR FILTRATION RATE 13.5 (>58); TOTAL PROTEIN 6.4 GM/DL (6.4-8.2)
[2020-06-11 06:00] VITALS: BP 140/56
[2020-06-11 07:00] LABS: HEMOGLOBIN 8.8 g/dl (12.0-15.5); MEAN CORPUSCULAR HGB CONC 31.4 g/dl (32.0-36.5); MEAN CORPUSCULAR VOLUME 108.1 fl (80.0-96.0); PLATELET COUNT, AUTOMATED 109 10^3/uL (150-450); RED BLOOD COUNT 2.59 10^6/uL (4.00-5.40); WHITE BLOOD COUNT 5.4 10^3/uL (4.0-10.0)
[2020-06-11 07:23] LABS: ALT/SGPT 21 U/L (12-78); BILIRUBIN,TOTAL 1.1 MG/DL (0.2-1.0); BLOOD UREA NITROGEN 45 MG/DL (7-18); CALCIUM LEVEL 8.4 MG/DL (8.5-10.1); CARBON DIOXIDE LEVEL 27 MEQ/L (21-32); CHLORIDE LEVEL 96 MEQ/L (98-107); CREATININE FOR GFR 3.84 MG/DL (0.55-1.30); GLOMERULAR FILTRATION RATE 13.6 (>58); GLUCOSE, FASTING 329 MG/DL (70-100); POTASSIUM SERUM 4.7 MEQ/L (3.5-5.1); SODIUM LEVEL 133 MEQ/L (136-145); TOTAL PROTEIN 6.5 GM/DL (6.4-8.2); VANCOMYCIN RANDOM < 0.8 UG/ML
[2020-06-11] MEDS: PANTOPRAZOLE 40MG VIAL (C9113 PER 1) IV SCH ×2 (07:26→21:49)
[2020-06-11] MEDS ORDERED: HumuLIN N INSULIN (NovoLIN N) PER UNIT SC SCH ×2 (07:30)
--- NOTE | 2020-06-11 07:51 | ECGEPIP ---
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
[2020-06-11] MEDS ORDERED: PANTOPRAZOLE 40MG VIAL (C9113 PER 1) IV SCH (09:00)
[2020-06-11] MEDS ORDERED: VITAMIN D 50,000 UNITS CAPSULE (ERGOCALCIFEROL 1.25MG) PO SCH (09:00)
[2020-06-11] MEDS ORDERED: LEVEMIR (INSULIN DETEMIR) 1 UNITS/0.01ML SC SCH ×2 (09:00→21:00)
[2020-06-11] MEDS ORDERED: PATIROMER SORBITEX CALCIUM 8.4 GM POWDER PACKET (VELTASSA) PO SCH (09:00)
[2020-06-11 09:02] LABS: VENOUS BASE EXCESS -1.3 (-2.0-2.0); VENOUS O2 SATURATION 98.4 % (60.0-80.0); VENOUS PARTIAL PRESSURE CO2 49.4 mmHg (38.0-50.0); VENOUS PARTIAL PRESSURE O2 145.2 mmHg (30.0-50.0); VENOUS PH 7.322 UNITS (7.330-7.430); VENOUS STANDARD HCO3 23.4 MEQ/L; VENOUS TOTAL CO2 26.5 MEQ/L (24.0-28.0)
[2020-06-11] MEDS: DOXYCYCLINE HYCLATE 100 MG in D5W MINI-BAG PLUS 100 ML IV SCH ×2 (09:07→21:49)
[2020-06-11] MEDS: SUCRALFATE 1 GM TAB PO SCH ×2 (09:08→21:49)
[2020-06-11] MEDS: HumaLOG INSULIN (NovoLOG) PER UNIT SC SCH ×4 (09:08→17:24)
[2020-06-11] MEDS: LOSARTAN 50MG TABLET PO SCH (09:12)
[2020-06-11] MEDS: DEXTROSE 50% 50 ML SYRINGE IV PRN ×3 (10:04→14:52)
[2020-06-11] MEDS ORDERED: DARBEPOETIN 200MCG/0.4ML *DIALYSIS* SYRINGE (J0882 PER 1MCG) IV SCH ×2 (10:25)
[2020-06-11 10:31] LABS: HEMATOCRIT 30.2 % (36.0-47.0); HEMOGLOBIN 9.6 g/dl (12.0-15.5); MEAN CORPUSCULAR HEMOGLOBIN 34.2 pg (27.0-33.0); MEAN CORPUSCULAR HGB CONC 31.8 g/dl (32.0-36.5); MEAN CORPUSCULAR VOLUME 107.5 fl (80.0-96.0); PLATELET COUNT, AUTOMATED 130 10^3/uL (150-450); RED BLOOD COUNT 2.81 10^6/uL (4.00-5.40); WHITE BLOOD COUNT 7.3 10^3/uL (4.0-10.0)
[2020-06-11 10:46] LABS: CALCIUM LEVEL 8.9 MG/DL (8.5-10.1); CREATININE FOR GFR 3.94 MG/DL (0.55-1.30); GLOMERULAR FILTRATION RATE 13.2 (>58); POTASSIUM SERUM 4.5 MEQ/L (3.5-5.1)
--- NOTE | 2020-06-11 10:56 | IPNPDOC ---
Text Note Date of Service The patient was seen on 06/11/20. NOTE Subjective: Overnight pt had 3-4 episodes of vomiting. Around 4am, RN reported that pt had kayla red blood in emesis. When asked, pt reports that she did not vomit blood but feels that she "coughed up a little bit of blood. It felt like I threw up too much and that caused the back of my throat to bleed". She has not had any episodes of vomiting or coughing up blood since this morning. Pt admits to some nausea but denies current abd pain, chest pain, urinary sx, constipation, or diarrhea. Pt states that she had one BM yesterday and did not notice any blood in her stools or dark colored stools. Denies any increased swelling, pain, or redness to her BLE. In addition, overnight pt developed elevated fasting glucose to 456 around 5 am today. Pt was not given her evening dose of NPH insulin due to what appears to be miscommunication, therefore she had no basal insulin coverage. Her anion gap increased from 7 to 11 overnight and beta-hydroxybutyrate is elevated at 14.56. Pt was given 10 units Humalog insulin at 0345 and 0500 this morning followed by 15 units of Humalog insulin at 0540 this morning as well. Pt was given her NPH insulin this morning around 0700 this morning. Objective: VITALS: See below. GENERAL: Pt is laying in bed. Appears fatigued. No acute distress. HEENT: NC/AT. EOMI. No scleral icterus. Tongue midline. No erythema or exudates noted in posterior oropharynx. Uvula midline. Dry mucous membranes. CARDIOVASCULAR: Regular rate and rhythm. Thrill from fistula heard on auscultation. No gallops or rubs appreciated. PULMONARY: Slight decrease in breath sounds to R lower lobe. No wheezes, rales, or rhonchi appreciated. ABD: No tenderness to palpation. No guarding or rebound. Normoactive bowel sounds to all four quadrants. Well healed midline abdominal surgical scar. EXTREMITIES: BLE erythematous and warm to the knees. Dressing in place over lateral aspect of feet bilaterally. No tenderness to palpation. Skin feels taught on palpation but no pitting edema appreciated. Fistula to L arm, thrill p resent. NEURO: No focal neurological deficits. Imaging: CXR (06/10/20) Mild right pleural effusion with bilateral perihilar and infrahilar infiltrates which may reflect congestive failure or fluid overload which may be similar to 10/14/2019. Infiltrates or atelectasis appear focally greater in the right base and overlying pneumonia is not excluded. CT Abd/Pelvis (06/10/20) 1. Mild peritoneal ascites and subcutaneous edema about the abdomen and pelvis which may reflect generalized anasarca. The ascites appears slightly decreased since the prior study. 2. Cholelithiasis with somewhat contracted gallbladder. 3. Pancreatic atrophy for age. 4. Moderate bilateral renal atrophy. CT Chest (06/10/20) 1. Mild right pleural effusion which is slightly increased since 10/14/2019 and new trace left pleural effusion since the prior study. There is moderate right lower lobe and mild right middle lobe atelectasis or consolidation which is similar and mild scattered bilateral areas of infiltrate and fibroatelectatic change which are new and may reflect interval congestive failure or fluid overload. Pneumonia is not excluded. 2. Trace pericardial fluid which is slightly increased since the prior study. 3. Skin thickening of the breasts bilaterally which may reflect cellulitis or previous radiation. 4. Minimal peritoneal ascites and diffuse subcutaneous edema which may reflect generalized anasarca. US Duplex Lower Extremity Veins, Bilateral (06/10/20) Negative bilateral lower extremity venous duplex exam without evidence of deep vein thrombosis. Foot XR (06/10/20) Relatively chronic appearing changes. No obvious periosteal reaction to suggest osteomyelitis by radiographic evaluation. Assessment/Plan: Pt is a 44 year old female with PMH of T1DM, ESRD on HD (Tue, , Tue), renovascular HTN, mixed hyperlipidiemia, diabetic retinopathy, iron deficiency anemia who presented to the ED due to chills and nausea after receiving hemodialysis that day (Tuesday). Upon arrival to the ED it was noted that pt had a fever of 101.4 and was given Tylenol without resolution of fever (temp increased to 102.4). Pt was admitted for further evaluation of fever. #DKA - Pt has type 1 DM. - Pt evening dose of Humulin NPH insulin and Humalog insulin was not given due to what appears to be miscommunication. Therefore pt did not have basal insulin coverage. - Pt fasting blood glucose increased to 456 overnight and pt had an increase in her anion gap. Anion gap was 7 yesterday but increased to 11 early this morning. Beta-hydroxybutyrate returned elevated at 14.56. - Pt was given 10 units Humalog insulin at 0345 and 0500 this morning followed by 15 units of Humalog insulin at 0540 this morning as well. Pt was given NPH insulin this morning. - Repeat BMP returned with decrease in fasting glucose at 329 and anion gap of 10. - VBG done shows pH of 7.322. - Will continue to monitor fluid status, anion gap, glucose, and chemistry. #Vomiting (with one episode of reported hematemesis) - RN reported pt had an episode of kayla red blood in emesis around 0400 today. Pt however reports that she "coughed up a little bit of blood. It felt like I threw up too much and that caused the back of my throat to bleed". Pt has not had another episode since 0400 this morning. - Hgb dropped from 11.5 yesterday to 8.7 early this morning. However, 0640 labs shows hgb 8.8. - Examination of posterior oropharynx was unremarkable. - Pt was started on Pantropazole 40 mg IV BID. - Carafate 1 gm PO BID ordered. - Will continue to monitor. #Fever - Pt met SIRS criteria at the time of admission with fever>100.4 and HR>90. However, pt has been afebrile since 0800 yesterday (over 24 hours now). - Possible sources of infection include foot ulcers vs cellulitis vs pleural effusion vs pneumonia. Pt is currently being treated for her foot ulcers by medical concierge and denies any increase in pain, erythema, edema, or warmth. BLE with erythema, warmth, and edema on examination causing suspicion for cellulitis, foot ulcers being a nidus of infection. CXR and CT chest show pleural effusion and concern for pneumonia. - Osteomyelitis ruled out with foot x-ray. - Blood cultures have been drawn and are pending. L foot ulcer has been cultured and is pending. Sputum culture pending. - Pt makes urine every other day and only enough urine was drawn for culture and not UA. Urine culture pending. - Respiratory panel negative. - WBC WNL at 5.4. CRP elevated at 3.32. ESR elevated at 45. - It was initially planned to start pt on Vancomycin and Cefepime however, pt reports reaction to Vanc ("makes her delirious") so Vanc was switched to Doxy. Doxy and Cefepime gives coverage for MRSA and pseudomonas. - MRSA PCR has returned negative however will continue Doxy and Cefepime until cultures return. - Tylenol PRN for fever. #ESRD on HD (Tue, , Tue) - Pt receives HD on Tuesdays, , and Saturdays. Pt had infiltration of fistula during HD on Tue so had to have HD session on Tuesday when her sx started. - K currently WNL at 4.7. - Nephrology has been consulted. - Will continue home medication Veltassa 8.4g SuMoWeFr at 0900 PO and vitamin D. #Type I DM - Basal insulin (NPH insulin) coverage ordered. - Prandial insulin ordered. - Pt placed on consistent carb diet. #Renovascular hypertension - Pt has ESRD on HD. BP currently 120/55. - Will continue home medication of Losartan Potassium 100 mg PO daily. #Elevated TSH - Pt TSH elevated at 4.990. - Free T4 WNL at 1.11. - This is likely 2/2 ESRD causing abnormal metabolism and excretion of thyroid hormones. #Macrocytic anemia - B12 and folate ordered and pending. #Depression - Home escitalopram 10 mg PO QHS continued. DVT Prophylaxis: Heparin 5,000 units SC Q12H. Disposition: Pending clinical improvement. VS,Nabilbone, I+O VS, Nabilbone, I+O Laboratory Tests 06/11/20 04:55 06/11/20 06:38 Vital Signs Date Time Temp Pulse Resp B/P (MAP) Pulse Ox O2 Delivery O2 Flow Rate FiO2 06/11/20 06:00 97.6 69 20 140/56 (84) 97 Nasal Cannula 1.0 I&O- Last 24 Hours up to 6 AM 06/11/20 06:00 Intake Total 1240 ml Output Total 2225 ml Balance -985 ml GME ATTESTATION GME ATTESTATION My faculty preceptor for this patient encounter was physically present during the encounter and was fully available. All aspects of the patient interview, examination, medical decision making process, and medical care plan development were reviewed and approved by the faculty preceptor. The faculty preceptor is aware and concurs with the plan as stated in the body of this note and will attest to such by his/her cosignature. ATTENDING NOTE I, Dave Osborne MD, have independently examined this patient and performed my own physical exam, as well as reviewed the documentation and edited where necessary. I have discussed in detail with the resident / student the findings and plan of treatment as documented by the resident / student and edited their n ote. I agree with their findings and treatment plan and have edited their documentation. Tatyana SEE OMS-3 Jun 11, 2020 09:08 DAVE OSBORNE MD Jun 13, 2020 15:51
[2020-06-11] MEDS ORDERED: DEXTROSE 50% 50 ML SYRINGE IV STA ×2 (12:00→12:03)
[2020-06-11 14:00] VITALS: BP 140/65
[2020-06-11 14:21] LABS: HEMATOCRIT 30.5 % (36.0-47.0); HEMOGLOBIN 9.5 g/dl (12.0-15.5); MEAN CORPUSCULAR HEMOGLOBIN 34.2 pg (27.0-33.0); MEAN CORPUSCULAR HGB CONC 31.1 g/dl (32.0-36.5); MEAN CORPUSCULAR VOLUME 109.7 fl (80.0-96.0); PLATELET COUNT, AUTOMATED 125 10^3/uL (150-450); RED BLOOD COUNT 2.78 10^6/uL (4.00-5.40); WHITE BLOOD COUNT 5.8 10^3/uL (4.0-10.0)
[2020-06-11] MEDS ORDERED: **VANCO AFTER HD** MISC XX SCH (16:00)
[2020-06-11] MEDS: HumuLIN N INSULIN (NovoLIN N) PER UNIT SC SCH (19:38)
--- NOTE | 2020-06-11 20:15 | IPN ---
PROGRESS NOTE DATE: 06/11/2020 SUBJECTIVE: Italia is seen and examined this morning at the bedside. She complains of feeling weak and sweaty related to her low sugars. She missed her evening dose of long acting insulin last night and went into diabetic ketoacidosis this morning with Betahydroxybuterate of 14.5 at 5:00 a. m. She, thereafter, was resumed back on insulin and then her sugar went as low as 37, and the patient complains of nausea and typical symptoms of hypoglycemia. OBJECTIVE: VITAL SIGNS: Temperature 97.5, pulse 54, respiratory rate 16, blood pressure 140/65, saturating 100% on 1 liter nasal cannula. INTAKE/OUTPUT: Intake yesterday was 1240. Weight in the bed scale today is 69.8 kg. Dialysis yesterday removed 2 liters. GENERAL: Patient is seen awake, alert, in mild distress and oriented x3. HEENT: Extraocular muscles are intact. Tongue is moist. Neck is supple. Jugular veins are not elevated. HEART: Heart sounds are regular with a systolic murmur. There is no leg edema. LUNGS: Show improved aeration with some diminished breath sounds on the right base. She is seen on 1 liters nasal cannula. No tachypnea. No accessory muscle use. ABDOMEN: Soft and nontender. EXTREMITIES: Show a patent fistula in the left arm. Her legs are negative for pitting edema. The feet are not examined. NEUROLOGIC: She is awake, alert, oriented x3 and at baseline mentation. SKIN: Shows some mild pallor. LABORATORY STUDIES: White count 5.8, hemoglobin 9.5, platelets 125,000. Sodium 134, potassium 4.5, bicarbonate 27, glucose at 10:00 a. m. 54. IMAGING: Vascular ultrasound of the lower extremities is negative for DVT. INPATIENT MEDICATIONS: Reviewed by myself. Patient is receiving Cefepime and Doxycycline per the primary service. I ordered Aranesp with dialysis today. The insulin was adjusted by the primary service. She was started on Protonix 40 mg I.V. b.i.d. and her Heparin subq was held. She was also started on Carafate 1 gram p.o. b.i.d. PROBLEMS: 1. End-stage renal disease on hemodialysis on a Tuesday, , Tuesday schedule: Patient was dialyzed yesterday with 2 liters of fluid removed. Next dialysis will be on . She is usually in mild to moderate fluid overload and her current volume status is better than usual. I would plan to remove 3 to 4 kilos with her treatment tomorrow. 2. Anemia of chronic renal failure: Her outpatient iron stores have been acceptable, so repeat iron stores have not been ordered while she is in the hospital. I have ordered Aranesp with dialysis. 3. Type 1 diabetes: No recent A1C seen in the system, was last 8.3% in September of 2019. Overnight had an episode of mild DKA after missing her long acting insulin managed by the primary service. 4. Hypertension: Blood pressures are well controlled with current regimen, Losartan, and no change is being made.
[2020-06-11] MEDS ORDERED: HumaLOG INSULIN (NovoLOG) PER UNIT SC SCH (21:00)
[2020-06-11] MEDS: ESCITALOPRAM OXALATE 10 MG TAB (LEXAPRO) PO SCH (21:49)
[2020-06-11 22:00] VITALS: BP 133/67
[2020-06-12] MEDS: CEFEPIME HCL 2 GM in D5W MINI-BAG PLUS 50 ML IV SCH (05:58)
[2020-06-12] MEDS: PANTOPRAZOLE 40MG VIAL (C9113 PER 1) IV SCH (05:58)
[2020-06-12] MEDS: SUCRALFATE 1 GM TAB PO SCH (05:59)
[2020-06-12 06:00] VITALS: BP 151/77
[2020-06-12] MEDS: LOSARTAN 50MG TABLET PO SCH (06:00)
[2020-06-12 06:22] LABS: BASO % 0.6 % (0.0-1.0); EOS # 0.3 10^3/uL (0.0-0.5); EOS % 5.2 % (0.0-3.0); HEMATOCRIT 29.5 % (36.0-47.0); HEMOGLOBIN 9.3 g/dl (12.0-15.5); LYMPH % 20.5 % (24.0-44.0); MEAN CORPUSCULAR HEMOGLOBIN 33.7 pg (27.0-33.0); MEAN CORPUSCULAR HGB CONC 31.5 g/dl (32.0-36.5); MEAN CORPUSCULAR VOLUME 106.9 fl (80.0-96.0); MONO # 0.6 10^3/uL (0.0-0.8); MONO % 12.5 % (2.0-8.0); NEUTROPHILS # 3.1 10^3/uL (1.5-8.5); NEUTROPHILS % 60.8 % (36.0-66.0); PLATELET COUNT, AUTOMATED 124 10^3/uL (150-450); RED BLOOD COUNT 2.76 10^6/uL (4.00-5.40)
[2020-06-12 06:52] LABS: CALCIUM LEVEL 8.9 MG/DL (8.5-10.1); CREATININE FOR GFR 4.83 MG/DL (0.55-1.30); GLOMERULAR FILTRATION RATE 10.5 (>58); POTASSIUM SERUM 5.1 MEQ/L (3.5-5.1)
[2020-06-12] MEDS: HumaLOG INSULIN (NovoLOG) PER UNIT SC SCH (08:06)
[2020-06-12] MEDS: HumuLIN N INSULIN (NovoLIN N) PER UNIT SC SCH (08:06)
[2020-06-12] MEDS ORDERED: DOCUSATE SODIUM 100MG CAPSULE PO ONE (09:05)
[2020-06-12] MEDS: DOXYCYCLINE HYCLATE 100 MG in D5W MINI-BAG PLUS 100 ML IV SCH (09:17)
[2020-06-12] MEDS ORDERED: DOXY-350 PO (10:32)
--- NOTE | 2020-06-12 10:37 | DS.PDOC ---
Discharge Summary General Date of Admission Jun 10, 2020 at 03:58 Date of Discharge Jun 12, 2020. Attending Physician: DAVE SAREGNT MD Discharge Summary PROCEDURES PERFORMED DURING STAY: None. ADMITTING DIAGNOSES: 1. Fever. 2. ESRD on HD (e, , Tue). 3. Type 1 DM with retinopathy. 4. Renovascular HTN. 5. Macrocytic anemia. 6. Abnormal TSH. 7. Depression. DISCHARGE DIAGNOSES: 1. DKA. 2. Nausea/vomiting. 3. Fever. 4. ESRD on HD (Tue, Th, Tue). 5. Type 1 DM. 6. Renovascular hypertension. 7. Elevated TSH. 8. Macrocytic anemia. 9. Depression COMPLICATIONS/CHIEF COMPLAINT: Fever, Renal Anascara. HISTORY OF PRESENT ILLNESS: [place] is a 44 year old female with extensive PMHx notable for type 1 diabetes with retinopathy and end-stage renal disease on hemodialysis ([facility]), who was brought to the ED on 06/09/20 by her after experiencing significant chills and nausea since earlier that afternoon. The patient had an issue with her regularly scheduled Tuesday (06/07/20) hemodialysis session that necessitated a makeup session on Tuesday (06/09/20) afternoon. She began hemodialysis approximate around 3:30 PM and roughly 1 hour into the session she developed chills and nausea. She completed the hemodialysis and reports her "usual amount of fluid was removed." She left the facility around 8 PM and continued to have the chills and nausea. When she returned home, the patient's reported she looked "sick" and decided she needed to come to the ED. In addition to the chills and nausea, she has had a nonproductive cough for the past month or so and also reports chronic orthopnea. She reports feeling these types of symptoms before when she was suffering from food poisoning. She did also have some slight abdominal cramping towards the end of the dialysis session. On presentation to the emergency department, she was febrile with a temperature of 101. She was given oral Tylenol and her temperature actually increased to 10 2.4. Upon follow-up later in the ED, her temp remained elevated at 102.2. She was also hypertensive with pressure of 191/94. She was saturating well, but on 2 L nasal cannula, which she does not use at home. There was bilateral erythema and warmth of lower extremities with some mild fluid distention of the abdomen. Interestingly, she did not have a white count (WBC 8.6) , although she did have a neutrophil predominance. Other notable labs were corrected. Apparently, the patient is able to urinate only every other day and the scant amount of urine that she was able to produce in the ED did not allow for urinalysis. Both a chest x-ray and CT chest showed persistent right pleural effusion that appeared slightly worse than last imaging in September 2019, along with mild to moderate ascites, and some generalized pulmonary congestion suggesting fluid buildup more so than any acute infiltrative process. It is important to note. Pleural fluid build-up is a chronic issue, as records indicate she underwent a thoracentesis during a June 2019 admission, which removed 600 mL. Bilateral lower extremity ultrasounds were both negative for DVT. Pt was admitted to the medicine team for further evaluation for fever. HOSPITAL COURSE: Upon admission, pt was started on Doxycycline and Cefepime as pt met SIRS criteria with possible sources of infection being cellulitis vs erysipelas vs pneumonia. Pt however, does see a bed machine operator and did not have any acute changes to her wounds. Pt received hemodialysis on Tuesday in the hospital with no acute events. She was later downgraded to med/surg with telemetry monitoring on the second hospital day. Unfortunately, due to what appears to be miscommunication on pt first hospital day, she was not given her evening dose of basal NPH insulin on the evening of 06/10/20 (her second hospital day). Due to her type 1 DM, pt went into DKA with fasting blood glucose of 456 overnight and although her anion gap was WNL it was increased compared to anion gap on presentation. Beta-hydroxybutyrate returned elevated at 14.56 that day. Due to her elevated blood glucose pt was initially given 10 units Humalog insulin at 0345 and 0500 on the morning of her second hospital day followed by 15 units of Humalog insulin at 0540 that morning as well without decrease in blood glucose levels. At around 0700 pt was given her NPH insulin. Due to the several units of Humalog insulin and NPH insulin given, pt became hypoglycemic to 37 at which point pt was given D50w, which improved her hypoglycemia. She was hypoglycemic through much of that morning and was encouraged to eat throughout the day. Blood glucose became WNL/elevated throughout the evening. In addition to this event, she had 3-4 episodes of vomiting with one reported episode of kayla red blood in her emesis on the morning of her second hospital day. However, pt reports that she "just coughed up some blood". Her hgb did drop from 11.5 to 8.7 overnight. She did not have any other episodes and her hgb increased throughout the day. She has had no acute overnight events that night. On the day of discharge, pt reported to be feeling much better than she did the day prior. She has not had any episodes of nausea or vomiting overnight and has been able to eat and drink without difficulty. She has however, complained of vaginal itchiness and states that she usually gets yeast infections while on antibiotics. She requests rx for Diflucan. She has been afebrile for >24 hours, WBC has been within range. Preliminary blood culture results have shown no growth. Urine culture has been negative. Wound culture is negative. Sputum culture results are pending. Osteomyelitis of foot has been ruled out with x-ray of foot. Major sources of infection that may have caused her fevers have been ruled out. During her stay, pt has received 3 days of doxycycline and cefepime. Will discharge with doxycycline. Pt is scheduled to receive HD today and will present to dialysis clinic after discharge. DISCHARGE MEDICATIONS: Please see below. ALLERGIES: Please see below. PHYSICAL EXAMINATION ON DISCHARGE: VITAL SIGNS: Please see below. GENERAL: Pt is sitting comfortably at rest, eating breakfast. No acute distress. HEENT: NC/AT. EOMI. Conjunctiva and lids normal. No scleral icterus. CARDIOVASCULAR EXAMINATION: Regular rate and rhythm. Thrill from fistula heard on auscultation. No gallops or rubs appreciated. RESPIRATORY EXAMINATION: Lungs clear to auscultation. No wheezes, rales, or rhonchi appreciated. ABDOMINAL EXAMINATION: No tenderness to palpation. No guarding or rebound. Normoactive bowel sounds to all four quadrants. Well healed midline abdominal surgical scar. EXTREMITIES: BLE erythematous and warm to the knees. Dressing in place over lateral aspect of feet bilaterally. No tenderness to palpation. Skin feels taught on palpation but no pitting edema appreciated. Fistula to L arm, thrill present. NEUROLOGICAL EXAMINATION: No focal neurological deficits. LABORATORY DATA: Please see below. IMAGING: CXR (06/10/20) Mild right pleural effusion with bilateral perihilar and infrahilar infiltrates which may reflect congestive failure or fluid overload which may be similar to 10/14/2019. Infiltrates or atelectasis appear focally greater in the right base and overlying pneumonia is not excluded. CT Abd/Pelvis (06/10/20) 1. Mild peritoneal ascites and subcutaneous edema about the abdomen and pelvis which may reflect generalized anasarca. The ascites appears slightly decreased since the prior study. 2. Cholelithiasis with somewhat contracted gallbladder. 3. Pancreatic atrophy for age. 4. Moderate bilateral renal atrophy. CT Chest (06/10/20) 1. Mild right pleural effusion which is slightly increased since 10/14/2019 and new trace left pleural effusion since the prior study. There is moderate right lower lobe and mild right middle lobe atelectasis or consolidation which is similar and mild scattered bilateral areas of infiltrate and fibroatelectatic change which are new and may reflect interval congestive failure or fluid overload. Pneumonia is not excluded. 2. Trace pericardial fluid which is slightly increased since the prior study. 3. Skin thickening of the breasts bilaterally which may reflect cellulitis or previous radiation. 4. Minimal peritoneal ascites and diffuse subcutaneous edema which may reflect generalized anasarca. US Duplex Lower Extremity Veins, Bilateral (06/10/20) Negative bilateral lower extremity venous duplex exam without evidence of deep vein thrombosis. Foot XR (06/10/20) Relatively chronic appearing changes. No obvious periosteal reaction to suggest osteomyelitis by radiographic evaluation. PROGNOSIS: Fair. ACTIVITY: As tolerated. DIET: Consistent carb/diabetic diet. DISCHARGE PLAN: Discharge home. DISCHARGE INSTRUCTIONS: 1. Please go to dialysis clinic as scheduled today for HD. 2. Please follow up with PCP in 1 week. 3. Please meat pickler rx medication, Doxycycline, and take as prescribed. 4. Return to ER if sx worsen or return. ITEMS TO FOLLOWUP ON ON OUTPATIENT: 1. Please go to dialysis clinic as scheduled today for HD. 2. Please follow up with PCP in 1 week. DISCHARGE CONDITION: Stable. TIME SPENT ON DISCHARGE: Greater than 35 minutes. Vital Signs/I&Os Vital Signs Date Time Temp Pulse Resp B/P (MAP) Pulse Ox O2 Delivery O2 Flow Rate FiO2 06/12/20 06:00 97.6 57 18 151/77 (101) 99 Nasal Cannula 1.0 I&O- Last 24 Hours up to 6 AM 06/12/20 06:00 Intake Total 1330 ml Output Total 0 ml Balance 1330 ml Laboratory Data Labs 24H Laboratory Tests 2 06/11/20 09:54: Bedside Glucose (Misc Panel) 37*L 06/11/20 10:13: Nucleated Red Blood Cells % (auto) 0.0, Bedside Glucose Confirm (Misc) 54, Anion Gap 9, Glomerular Filtration Rate 13.2L, Calcium Level 8.9 06/11/20 10:41: Bedside Glucose (Misc Panel) 62L 06/11/20 11:23: Bedside Glucose (Misc Panel) 88 06/11/20 11:55: Bedside Glucose (Misc Panel) 50L 06/11/20 12:41: Bedside Glucose (Misc Panel) 164H 06/11/20 13:56: Nucleated Red Blood Cells % (auto) 0.0 06/11/20 14:40: Bedside Glucose (Misc Panel) 61L 06/11/20 15:59: Bedside Glucose (Misc Panel) 77 06/11/20 16:28: Bedside Glucose (Misc Panel) 86 06/11/20 18:36: Bedside Glucose (Misc Panel) 77 06/11/20 19:37: Bedside Glucose (Misc Panel) 173H 06/11/20 21:12: Bedside Glucose (Misc Panel) 182H 06/12/20 05:39: Immature Granulocyte % (Auto) 0.4, Neutrophils (%) (Auto) 60.8, Lymphocytes (%) (Auto) 20.5L, Monocytes (%) (Auto) 12.5H, Eosinophils (%) (Auto) 5.2H, Basophils (%) (Auto) 0.6, Neutrophils # (Auto) 3.1, Lymphocytes # (Auto) 1.0L, Monocytes # (Auto) 0.6, Eosinophils # (Auto) 0.3, Basophils # (Auto) 0.0, Nucleated Red Blood Cells % (auto) 0.0, Anion Gap 11, Glomerular Filtration Rate 10.5L, Calcium Level 8.9 CBC/BMP Laboratory Tests 06/11/20 10:13 06/11/20 13:56 06/12/20 05:39 FSBS Laboratory Tests Test 06/11/20 09:54 06/11/20 10:41 06/11/20 11:23 06/11/20 11:55 Range/Units Bedside Glucose (Misc Panel) 37 62 88 50 70-105 MG/DL Test 06/11/20 12:41 06/11/20 14:40 06/11/20 15:59 06/11/20 16:28 Range/Units Bedside Glucose (Misc Panel) 164 61 77 86 70-105 MG/DL Test 06/11/20 18:36 06/11/20 19:37 06/11/20 21:12 Range/Units Bedside Glucose (Misc Panel) 77 173 182 70-105 MG/DL Microbiology Microbiology 06/10/20 Gram Stain - Final, Resulted 06/10/20 Wound Culture, Resulted Pending 06/10/20 Gram Stain, Ordered Pending 06/10/20 Sputum Culture, Ordered Pending 06/10/20 Urine Culture - Final, Complete 06/10/20 Respiratory Virus Panel (PCR) ([facility]IDA) - Final, Complete 06/09/20 Blood Culture - Preliminary, Resulted No Growth after 48 hours. All Specime... 06/09/20 Blood Culture - Preliminary, Resulted No Growth after 48 hours. All Specime... Discharge Medications Scheduled Doxycycline Monohydrate (Doxycycline) 100 Mg Capsule, 100 MG PO BID Ergocalciferol (Vitamin D2) (Vitamin D2) 50,000 Units Cap, 50,000 UNITS PO QWEEK, (Reported) WEDNESDAYS Escitalopram Oxalate (Lexapro) 10 Mg Tab, 10 MG PO QHS, (Reported) Fluconazole (Diflucan) 150 Mg Tablet, 1 TAB PO ONCE for yeast infection Insulin Human Lispro (Humalog) 100 Unit/1 Ml Vial, 1 DOSE SC ACHS, (Reported) PER SLIDING SCALE Insulin Human NPH (Humulin N) 100 Unit/1 Ml Vial, 8 UNITS SC BID, (Reported) Losartan Potassium (Losartan Potassium) 100 Mg Tablet, 100 MG PO DAILY, (Reported) Patiromer Calcium Sorbitex (Veltassa) 8.4 Gm Pow, 8.4 GM PO 4XWK, (Reported) TUESDAY, TUESDAY, TUESDAY AND TUESDAY (NON-DIALYSIS DAYS) Allergies Coded Allergies: vancomycin (Verified Adverse Reaction, Intermediate, Hallucinations, 06/10/20) GME ATTESTATION GME ATTESTATION My faculty preceptor for this patient encounter was physically present during the encounter and was fully available. All aspects of the patient interview, examination, medical decision making process, and medical care plan development were reviewed and approved by the faculty preceptor. The faculty preceptor is aware and concurs with the plan as stated in the body of this note and will attest to such by his/her cosignature. ATTENDING NOTE I, Dave Sargent MD, have independently examined this patient and performed my own physical exam, as well as reviewed the documentation and edited where necessary. I have discussed in detail with the resident / student the findings and plan of treatment as documented by the resident / student and edited their note. I agree with their findings and treatment plan and have edited their documentation. Total time spent on this patient including coordination of care, review of chart documentation and actual patient contact is around 35 minutes Tatyana SEE OMS-3 Jun 12, 2020 10:01 DAVE SARGENT MD Jun 13, 2020 15:53
[2020-06-12] MEDS ORDERED: DIFL150T PO (11:04)
== END 2020-06-12 11:20 | disposition home or self-care (01) | DRG 602 ==
LOC: M ED 22:26 → M ED INP 06-10 03:58 → ENRESERV 06-10 04:36 → M ICU 06-10 05:37 → M MSPAV 06-10 15:01
PROVIDERS: ADMIT Family Medicine; ATTEND Internal Medicine
DX: L03.115 Cellulitis of right lower limb (principal); N18.6 End stage renal disease; J90 Pleural effusion, not elsewhere classified; R18.8 Other ascites; J98.11 Atelectasis; T86.12 Kidney transplant failure; T86.891 Other transplanted tissue failure; K92.0 Hematemesis; I12.0 Hypertensive chronic kidney disease with stage 5 chronic kidney disease or end stage renal disease; E10.10 Type 1 diabetes mellitus with ketoacidosis without coma; L03.116 Cellulitis of left lower limb; L97.529 Non-pressure chronic ulcer of other part of left foot with unspecified severity; E10.621 Type 1 diabetes mellitus with foot ulcer; E10.22 Type 1 diabetes mellitus with diabetic chronic kidney disease; E10.319 Type 1 diabetes mellitus with unspecified diabetic retinopathy without macular edema; Z99.2 Dependence on renal dialysis; R50.9 Fever, unspecified; D63.1 Anemia in chronic kidney disease; D50.9 Iron deficiency anemia, unspecified; E78.2 Mixed hyperlipidemia; D75.89 Other specified diseases of blood and blood-forming organs; L65.9 Nonscarring hair loss, unspecified; E07.9 Disorder of thyroid, unspecified; F32.9 Major depressive disorder, single episode, unspecified; Z79.84 Long term (current) use of oral hypoglycemic drugs; Z79.899 Other long term (current) drug therapy; Z88.1 Allergy status to other antibiotic agents; Z98.49 Cataract extraction status, unspecified eye; Z89.422 Acquired absence of other left toe(s); Z20.822 Contact with and (suspected) exposure to COVID-19

== ENCOUNTER 2020-06-28 17:00 | Emergency (ER) | payer MEDICARE, BC ==
[~2020-06-28] VITALS: Ht 162.6 cm; Wt 67.8 kg
[~2020-06-28 17:00] MED LIST changes: +DOXY-350 PO; +LOSA100T50 PO
--- NOTE | 2020-06-28 18:15 | REPVR ---
PROCEDURE INFORMATION: Exam: XR Left Foot Exam date and time: 06/28/2020 5:55 PM Age: 44 years old Clinical indication: Pain; Foot; Left; Additional info: Lateral foot wound; Assess for osteo TECHNIQUE: Imaging protocol: XR Left foot. Views: 3 or more views. COMPARISON: CR Foot, complete 06/10/2020 8:22 AM FINDINGS: Bones/joints: Status post amputation of the 5th toe at the base of the 5th metatarsal. No evidence of bone destruction, periosteal reaction or osteolysis. Degenerative changes in the interphalangeal joints. Soft tissues: Normal. Vasculature: Atherosclerotic calcifications in the foot consistent with diabetic vasculopathy. IMPRESSION: Status post amputation 5th toe at the base of the 5th metatarsal. No obvious signs of osteomyelitis at this time. Electronically signed by: Osmin Dumont On 06/28/2020 18:14:47 PM
[2020-06-28 18:44] LABS: BASO % 0.9 % (0.0-1.0); EOS # 0.2 10^3/uL (0.0-0.5); EOS % 5.1 % (0.0-3.0); HEMATOCRIT 33.2 % (36.0-47.0); HEMOGLOBIN 10.6 g/dl (12.0-15.5); LYMPH # 0.7 10^3/uL (1.5-5.0); LYMPH % 21.1 % (24.0-44.0); MEAN CORPUSCULAR HEMOGLOBIN 33.9 pg (27.0-33.0); MEAN CORPUSCULAR HGB CONC 31.9 g/dl (32.0-36.5); MEAN CORPUSCULAR VOLUME 106.1 fl (80.0-96.0); MONO # 0.4 10^3/uL (0.0-0.8); MONO % 13.3 % (2.0-8.0); NEUTROPHILS % 59.3 % (36.0-66.0); PLATELET COUNT, AUTOMATED 106 10^3/uL (150-450); RED BLOOD COUNT 3.13 10^6/uL (4.00-5.40); WHITE BLOOD COUNT 3.3 10^3/uL (4.0-10.0)
[2020-06-28 19:02] LABS: ERYTHROCYTE SEDIMENTATION RATE 37 mm/hr (0-20)
[2020-06-28 19:33] LABS: ALBUMIN 3.1 GM/DL (3.2-5.2); BILIRUBIN,DIRECT 0.3 MG/DL (0.0-0.2); BILIRUBIN,TOTAL 1.1 MG/DL (0.2-1.0); C REACTIVE PROTEIN QUANTITATIV 1.31 MG/DL (0.00-0.30); CALCIUM LEVEL 8.7 MG/DL (8.5-10.1); CK-MB VALUE MASS 3.1 NG/ML (<3.6); CREATININE FOR GFR 2.43 MG/DL (0.55-1.30); GLOMERULAR FILTRATION RATE 23.1 (>58); MB/CK RELATIVE INDEX 2.58 (< OR =4); POTASSIUM SERUM 4.5 MEQ/L (3.5-5.1); TOTAL PROTEIN 7.4 GM/DL (6.4-8.2); TROPONIN I 0.18 NG/ML (< 0.10)
[2020-06-28] MEDS ORDERED: CADEXOMER IODINE 10GM (IODOSORB) GEL TOP STA (19:42)
[2020-06-28 20:30] VITALS: BP 135/65
== END 2020-06-28 20:30 | disposition home or self-care (01) ==
LOC: M ED 17:00
DX: L97.529 Non-pressure chronic ulcer of other part of left foot with unspecified severity (principal); N18.6 End stage renal disease; I12.0 Hypertensive chronic kidney disease with stage 5 chronic kidney disease or end stage renal disease; E10.9 Type 1 diabetes mellitus without complications; E78.5 Hyperlipidemia, unspecified; K21.9 Gastro-esophageal reflux disease without esophagitis; Z89.422 Acquired absence of other left toe(s); Z88.1 Allergy status to other antibiotic agents; Z79.4 Long term (current) use of insulin; Z79.899 Other long term (current) drug therapy

== ENCOUNTER → 2020-07-18 | Outpatient (CLI) | payer MEDICARE, BC ==
--- NOTE | 2020-07-18 15:14 | REP ---
INDICATION: LEFT FOOT AND HEAL ULCER. COMPARISON: None. TECHNIQUE: Real time raygoza scale and Duplex Doppler evaluation of the left lower extremity arterial vasculature using linear high frequency transducer. FINDINGS: Duplex doppler interrogation demonstrates diffuse monophasic waveforms with mild scattered calcific plaque diffusely. The calcifications in the arterial bingham limit the study. Diffusely the vessel caliber is small, particularly in the lower legs. No focal stenosis is appreciated. PSV(cm/sec) Common femoral artery: 100 cm/s Profunda femoris artery: 92 cm/s Proximal superficial femoral artery: 102 cm/s Mid superficial femoral artery: 117 cm/s Distal superficial femoral artery: 98 cm/s Popliteal artery: 71 cm/s Proximal FRANKLYN: 30 cm/s Tibioperoneal trunk: Not visualized Proximal BROADCAST OPERATIONS TECHNICIAN: Not visualized Distal BROADCAST OPERATIONS TECHNICIAN: 61 cm/s Distal FRANKLYN: 87 cm/s IMPRESSION: Diffuse calcific plaque. Vessels are diffusely small in caliber and demonstrate diffuse monophasic waveforms. No duplex Doppler sonographic evidence of focal hemodynamically significant stenosis. Wall calcifications somewhat limits the exam. Tibioperoneal trunk and proximal posterior tibial artery could not be visualized. <Electronically signed by Huber Raygoza > 07/18/20 [id number]
== END ==
LOC: M RAD 13:45
PROVIDERS: ATTEND Physician Assistant
DX: L97.522 Non-pressure chronic ulcer of other part of left foot with fat layer exposed (principal); L97.422 Non-pressure chronic ulcer of left heel and midfoot with fat layer exposed

== ENCOUNTER → 2020-07-23 | Outpatient (CLI) | payer MEDICARE, BC ==
[~2020-07-23] MED LIST changes: -DOXY100C37 PO; +DOXY1CAP62 PO; +ERGO500029 PO; +HYDR10TAB PO; +RENV2TAB PO
--- NOTE | 2020-07-23 16:02 | REP ---
INDICATION: PLEURAL EFFUSION COMPARISON: 06/10/2020 TECHNIQUE: Single AP view FINDINGS: Cardiomegaly is stable. Moderate to large right pleural effusion and right lower lobe pulmonary opacities are again noted and possibly slightly increased from prior exam. Remainder of the examination is grossly normal/stable. IMPRESSION: Moderate to large right pleural effusion and right lower lobe opacity slightly increased from prior examination. <Electronically signed by Merrick Vivar > 07/23/20 155
== END ==
LOC: M WUC 15:19
PROVIDERS: ATTEND Nurse Practitioner Family
DX: J90 Pleural effusion, not elsewhere classified (principal); I51.7 Cardiomegaly; R91.8 Other nonspecific abnormal finding of lung field

== ENCOUNTER 2020-08-26 15:30 | Inpatient (IN) | payer MEDICARE, BC ==
[~2020-08-26] VITALS: Ht 162.6 cm; Wt 65.0 kg
[~2020-08-26 15:30] MED LIST changes: -HYDR10TAB PO; -RENV2TAB PO
[2020-08-26] MEDS ORDERED: ONDANSETRON 4MG/2ML VIAL IV ONE (16:40)
--- NOTE | 2020-08-26 16:43 | REP ---
INDICATION: epigastric ab painm nausea COMPARISON: 07/23/2020 TECHNIQUE: Portable AP view of the chest FINDINGS: Moderate right pleural effusion with underlying atelectasis and airspace disease. Mass lesion along the lateral aspect of the right lower lung zone cannot be excluded as well. Stable cardiomegaly. Left hemithorax is clear. No pneumothorax. Skeletal structures intact. IMPRESSION: Moderate right pleural effusion with underlying airspace disease and atelectasis as well as suspicion for rounded mass. <Electronically signed by Merrick Vivar > 08/26/20 [id number]
[2020-08-26 17:16] LABS: BASO # 0.1 10^3/uL (0.0-0.2); BASO % 0.9 % (0.0-1.0); EOS # 0.2 10^3/uL (0.0-0.5); EOS % 3.3 % (0.0-3.0); HEMATOCRIT 35.7 % (36.0-47.0); HEMOGLOBIN 11.6 g/dl (12.0-15.5); LYMPH % 17.5 % (24.0-44.0); MEAN CORPUSCULAR HEMOGLOBIN 34.1 pg (27.0-33.0); MEAN CORPUSCULAR HGB CONC 32.5 g/dl (32.0-36.5); MONO # 0.5 10^3/uL (0.0-0.8); MONO % 9.5 % (2.0-8.0); NEUTROPHILS # 3.8 10^3/uL (1.5-8.5); NEUTROPHILS % 68.6 % (36.0-66.0); PLATELET COUNT, AUTOMATED 102 10^3/uL (150-450); WHITE BLOOD COUNT 5.5 10^3/uL (4.0-10.0)
--- NOTE | 2020-08-26 18:20 | REPVR ---
PROCEDURE INFORMATION: Exam: CT Abdomen And Pelvis Without Contrast Exam date and time: 08/26/2020 5:24 PM Age: 44 years old Clinical indication: Other: Nausea, emesis, ab pain TECHNIQUE: Imaging protocol: Computed tomography of the abdomen and pelvis without contrast. Radiation optimization: All CT scans at this facility use at least one of these dose optimization techniques: automated exposure control; mA and/or kV adjustment per patient size (includes targeted exams where dose is matched to clinical indication); or iterative reconstruction. COMPARISON: CT ABD PELVIS W/O CONTRAST 06/10/2020 2:24 AM FINDINGS: Lungs: Right posterior pulmonary partial passive atelectasis. Pleural spaces: Large right pleural effusion. Heart: Mitral annular calcification is present. Posterior left pericardial calcification redemonstrated. Liver: Normal. No mass. Gallbladder and bile ducts: Several dependent small gallstones are noted posteriorly in the nondistended gallbladder. No gallbladder wall thickening or pericholecystic fluid identified. Pancreas: Normal. No ductal dilation. Spleen: Normal. No splenomegaly. Adrenal glands: Normal. No mass. Kidneys and ureters: Moderate bilateral renal atrophy. No hydronephrosis. Stomach and bowel: Unremarkable. No obstruction. No mucosal thickening. Appendix: The vermiform appendix is not identified on this examination. There is, however, no pericecal abnormality to suggest appendicitis. Intraperitoneal space: Surgical clips adjacent to the aortic bifurcation. Moderate abdominal and pelvic ascites. Vasculature: Extensive calcification of the splanchnic vasculature is present. Moderate anasarca. Mild aortic atherosclerotic calcification without aneurysm. The iliac arteries show moderate bilateral atherosclerotic calcifications without evidence of aneurysm. LAD, LCx and RCA calcified coronary atherosclerosis. Lymph nodes: No enlarged lymph nodes. Urinary bladder: The urinary bladder is decompressed and difficult to assess. Reproductive: Unremarkable as visualized. Bones/joints: Diffuse osteopenia. Soft tissues: See "Vasculature" finding. IMPRESSION: 1. Cholelithiasis. 2. Moderate abdominal and pelvic ascites, similar to prior study. 3. Large right pleural effusion, stable. 4. Coronary atherosclerosis. 5. Chronic calcific pericarditis. Electronically signed by: Mikie Mora On 08/26/2020 18:19:38 PM
[2020-08-26 19:28] LABS: CALCIUM LEVEL 9.4 MG/DL (8.5-10.1); CREATININE FOR GFR 5.48 MG/DL (0.55-1.30)
[2020-08-26] MEDS ORDERED: DEXTROSE 50% 50 ML SYRINGE IV STA (19:54)
[2020-08-26] MEDS ORDERED: SOD POLYSTYRENE SULFONATE SUSP 15 GM/60 ML UD PO ONE (19:55)
[2020-08-26] MEDS ORDERED: HumuLIN R (REGULAR) INSULIN (NovoLIN R) **100U/ML** PER UNIT IV ONE (19:55)
[2020-08-26] MEDS ORDERED: RENV2TAB PO (20:10)
[2020-08-26] MEDS ORDERED: HYDR10TAB PO (20:10)
[2020-08-26] MEDS ORDERED: GLUCOSE 4GM CHEW TABLET PO PRN (20:45)
[2020-08-26] MEDS ORDERED: DEXTROSE 50% 50 ML SYRINGE IV PRN (20:45)
[2020-08-26] MEDS ORDERED: GLUCAGON INJ 1MG VIAL SC PRN (20:45)
[2020-08-26] MEDS ORDERED: ACETAMINOPHEN TAB 650MG DOSE (2X325MG) PO PRN (20:45)
[2020-08-26] MEDS ORDERED: ONDANSETRON 4MG/2ML VIAL IV PRN (20:50)
--- NOTE | 2020-08-26 20:51 | HPEPDOC ---
General Date of Admission 08/26/20 Date of Service: Aug 26, 2020 Chief Complaint The patient is a 44-year-old female admitted with a reason for visit of N/V,Diarrhea. Source: Patient Exam Limitations: No limitations Severity: Moderate History of Present Illness Patient is 44 years old female with past medical history of end-stage renal disease on hemodialysis, type 1 diabetes who presents with fatigue, generalized weakness and diarrhea. Patient stated that for past few days she has been having multiple bowel movements. She denies any fever or chills. She reported nausea and loss of appetite. Today she is supposed to have dialysis but because of generalized weakness she did not go for dialysis. In the ER patient was fo und to have systolic blood pressure of 212, white blood count of 11.6, sodium level of 129, potassium 8. CT abdomen pelvis showed Moderate abdominal and pelvic ascites, similar to prior study. Large right pleural effusion, stable. Patient received in ER Kayexalate, D50 with IV insulin. EKG showed sinus rhythm, no peak T waves Home Medications Scheduled Ergocalciferol (Vitamin D2) (Vitamin D2) 50,000 Units Cap, 50,000 UNITS PO QWEEK, (Reported) WEDNESDAYS Escitalopram Oxalate (Lexapro) 10 Mg Tab, 10 MG PO QHS, (Reported) Hydralazine HCl (Hydralazine HCl) 10 Mg Tablet, 10 MG PO BID, (Reported) Insulin Human Lispro (Humalog) 100 Unit/1 Ml Vial, 1 DOSE SC ACHS, (Reported) PER SLIDING SCALE Insulin Human NPH (Humulin N) 100 Unit/1 Ml Vial, 8 UNITS SC BID, (Reported) Losartan Potassium (Losartan Potassium) 100 Mg Tablet, 100 MG PO DAILY, (Reported) Patiromer Calcium Sorbitex (Veltassa) 8.4 Gm Pow, 8.4 GM PO 4XWK, (Reported) TUESDAY, TUESDAY, TUESDAY AND TUESDAY (NON-DIALYSIS DAYS) Sevelamer Carbonate (Renvela) 800 Mg Tablet, 1,600 MG PO WM, (Reported) Allergies Coded Allergies: vancomycin (Verified Adverse Reaction, Intermediate, Hallucinations, 06/10/20) Past Medical History Medical History ESRD on hemodialysis T/T/S Type 1 diabetes Hypertension Iron deficiency anemia, etiology unknown Chronic macrocytosis Hyperlipidemia Alopecia Seasonal allergies History of abnormal uterine bleeding Surgical History History of kidney and pancreas transplant, failed 2017 Left arm fistula, Left fifth toe amputation, 2013 Left eye surgery, 2016 cataract surgery, 2010 Family History Father: Living; hypertension, diabetes type 2. Mother: Living. Maternal grandfather: Brain, kidney, and prostate cancer. Maternal grandmother: Pancreatic cancer Maternal uncle: Skin cancer Social History * Smoker: Denies Alcohol: Denies Drugs: denies A-FIB/CHADSVASC A-FIB History Current/History of A-Fib/PAF?: No Current PO Anticoag Therapy: No Review of Systems Constitutional: Denies: Chills, Fever, Malaise, Weakness, Fatigue Eyes: Denies: Pain ENT: Denies: Head Aches, Ear Pain Skin: Reports: Lesions (Distal legs bilaterally); Denies: Rash Pulmonary: Denies: Cough Cardiovascular: Denies: Chest Pain Gastrointestinal: Reports: Nausea, Diarrhea Genitourinary: Denies: Hematuria Hematologic: Denies: Bruising, Bleeding Excessively Endocrine: Denies: Polydipsia Musculoskeletal: Denies: Neck Pain Neurological: Denies: Weakness Psych: Reports: Mood Normal Physical Examination General Exam: Positive: Alert, Cooperative Eye Exam: Positive: PERRLA ENT Exam: Positive: Atraumatic Neck Exam: Positive: Supple, JVD Chest Exam: Positive: Clear to auscultation Heart Exam: Positive: Rate Normal Telemetry: Positive: No significant arrhythmia Abdomen Exam: Negative: Tenderness Extremity Exam: Positive: Edema, Swelling, Other (Chronic left foot wound, erythema of right distal lower leg erythema with some excoriation); Negative: Cyanosis Skin Exam: Positive: Breakdown, Lesion Neuro Exam: Positive: Strength at 5/5 X4 ext Psych Exam: Positive: Mental status NL Vital Signs Vital Signs Date Time Temp Pulse Resp B/P (MAP) Pulse Ox O2 Delivery O2 Flow Rate FiO2 08/26/20 18:42 95.9 58 20 187/97 93 Room Air Laboratory Data Labs 24H Laboratory Tests 2 08/26/20 16:58: Immature Granulocyte % (Auto) 0.2, Neutrophils (%) (Auto) 68.6H, Lymphocytes (%) (Auto) 17.5L, Monocytes (%) (Auto) 9.5H, Eosinophils (%) (Auto) 3.3H, Basophils (%) (Auto) 0.9, Neutrophils # (Auto) 3.8, Lymphocytes # (Auto) 1.0L, Monocytes # (Auto) 0.5, Eosinophils # (Auto) 0.2, Basophils # (Auto) 0.1, Nucleated Red Blood Cells % (auto) 0.0 08/26/20 17:04: POC Troponin I (Misc) 0.07 08/26/20 18:38: Anion Gap 11, Glomerular Filtration Rate 9.0L, Calcium Level 9.4, Lipase 38L 08/26/20 20:15: CBC/BMP Laboratory Tests 08/26/20 16:58 08/26/20 18:38 Assessment/Plan Patient is 44 years old female with past medical history of end-stage renal disease on hemodialysis, type 1 diabetes who presents with fatigue, generalized weakness and diarrhea. Patient stated with the past few days she has been having multiple bowel movements. She denies any fever or chills. She reported nausea and loss of appetite. Today she is supposed to have dialysis but because of generalized weakness she did not go for dialysis. In the ER patient was found to have white blood count of 11.6, sodium level of 129, potassium 8. CT abdomen pelvis showed Moderate abdominal and pelvic ascites, similar to prior study. Large right pleural effusion, stable. Problems (1) ESRD (end stage renal disease) on dialysis Status: Chronic Problem Text: Nephrology team will proceed with dialysis tonight Appreciate/agree with nephrology consult (2) Nausea Status: Acute Problem Text: Zofran IV (3) Uncontrolled diabetes mellitus Onset Date: 10/22/2013 Status: Chronic Problem Text: Continue NPH 8 units twice daily Insulin sliding scale Diabetes diet Will check HbA1c (4) Hyperkalemia Status: Acute Problem Text: We will check BMP every 4 hours Dialysis tonight Patient received D50, IV insulin, Kayexalate, and calcium gluconate Telemetry (5) Ulcer of left foot Status: Chronic Problem Text: Patient follows by Dr. Sebastian in the outpatient setting (6) Diarrhea Status: Acute Problem Text: We will check stool for C. difficile (7) Volume overload Status: Acute Problem Text: 2/2 missed to dialysis will check BNP Dialysis tonight (8) Hypertensive urgency Status: Acute Problem Text: Secondary to volume overload Hydralazine IV with parameters Dialysis tonight Plan / VTE VTE Prophylaxis Ordered?: Yes LINA SCHMITT DO Aug 26, 2020 20:51
[2020-08-26] MEDS ORDERED: CALCIUM GLUCONATE 1,000 MG in D5W MINI-BAG PLUS 100 ML IV ONE (21:00)
[2020-08-26 21:10] LABS: RSV AMPLIFICATION NEGATIVE (NEGATIVE)
[2020-08-26] MEDS ORDERED: hydrALAZINE 20MG/ML 1ML VIAL (J0360 PER 20MG) IV PRN (21:10)
[2020-08-26 21:18] LABS: MAGNESIUM LEVEL 3.5 MG/DL (1.8-2.4)
[2020-08-26 21:25] LABS: HEMOGLOBIN A1c 8.7 %
[2020-08-26 22:10] LABS: CALCIUM LEVEL 9.2 MG/DL (8.5-10.1); CREATININE FOR GFR 4.69 MG/DL (0.55-1.30); GLOMERULAR FILTRATION RATE 10.8 (>58)
[2020-08-27 01:00] VITALS: BP 138/72
[2020-08-27] MEDS: **hydrALAZINE** 10 MG TAB PO SCH ×3 (01:42→22:10)
[2020-08-27] MEDS: HEPARIN SOD (PORCINE) 5000UNITS/ML 1ML VIAL/SYRINGE SC SCH ×3 (01:42→22:11)
[2020-08-27] MEDS: ESCITALOPRAM OXALATE 10 MG TAB (LEXAPRO) PO SCH ×2 (01:42→22:10)
[2020-08-27] MEDS: HumaLOG INSULIN (NovoLOG) PER UNIT SC SCH ×5 (01:43→21:00)
[2020-08-27 04:00] VITALS: BP 118/52
[2020-08-27] MEDS ORDERED: LIDOCAINE 1% SDV 5ML VIAL SC PRN ×2 (06:00→10:30)
[2020-08-27 06:26] LABS: ACETONE/KETONE > 46.00 MG/DL (<2.81); ALBUMIN 3.2 GM/DL (3.2-5.2); ALT/SGPT 64 U/L (12-78); BLOOD UREA NITROGEN 48 MG/DL (7-18); CALCIUM LEVEL 9.2 MG/DL (8.5-10.1); CARBON DIOXIDE LEVEL 18 MEQ/L (21-32); CHLORIDE LEVEL 95 MEQ/L (98-107); CREATININE FOR GFR 3.32 MG/DL (0.55-1.30); GLOMERULAR FILTRATION RATE 16.1 (>58); GLUCOSE, FASTING 292 MG/DL (70-100); MAGNESIUM LEVEL 2.8 MG/DL (1.8-2.4); POTASSIUM SERUM 4.8 MEQ/L (3.5-5.1); SODIUM LEVEL 132 MEQ/L (136-145); TOTAL PROTEIN 6.5 GM/DL (6.4-8.2)
[2020-08-27 07:19] VITALS: BP 128/59
[2020-08-27] MEDS ORDERED: HumuLIN N INSULIN (NovoLIN N) PER UNIT SC SCH ×2 (07:30→17:30)
--- NOTE | 2020-08-27 07:55 | CR ---
NEPHROLOGY CONSULTATION DATE: 08/26/2020 REQUESTING PHYSICIAN: Dr. Luan Courtney CONSULTING PHYSICIAN: Dr. Austin Starr REASON FOR CONSULTATION: Management of hyperkalemia and fluid overload in this patient who has missed dialysis. CHIEF COMPLAINT: The patient presented to the Emergency Room today because of nausea, vomiting, and generalized muscle weakness along with diarrhea. HISTORY OF PRESENT ILLNESS: Italia Nye is a 44-year-old female with a past medical history of end-stage renal disease on hemodialysis q. Tuesday, , Tuesday, type 1 diabetic. History of hypertension and other comorbidities as mentioned below. She was supposed to go for dialysis today, however she missed her dialysis. She reports that she was having 2-3 days history of diarrhea so she did not go for dialysis. She presented with generalized weakness. In the Emergency Department the patient was found to have systolic blood pressures in the 200's and she was hyperkalemic with a potassium of 8. She was given Kayexalate, D50, insulin and calcium in the Emergency Room. Nephrology Service was called for further help in the management of this patient. I saw and evaluated the patient at the bedside. I had already arranged an urgent hemodialysis to be done and she was being dialyzed when I saw her. PAST MEDICAL HISTORY: The patient's past medical history is significant for: 1. End-stage renal disease on hemodialysis q. Tuesday, , Tuesday. 2. Type 1 diabetic. 3. History of hypertension. 4. Anemia in end-stage renal disease. 5. Hyperlipidemia. 6. Seasonal allergies. 7. Chronic noncompliance with fluid and medications. PAST SURGICAL HISTORY: The patient's past surgical history is significant for: 1. Status post a kidney and pancreas transplant which was complicated by sepsis and cardiac arrest. Both transplants failed in 2017. 2. Left arm AV fistula placement. 3. Left fifth toe amputation in 2013. 4. Left eye surgery and cataract surgery in 2009. FAMILY HISTORY: Maternal grandfather had brain, kidney and prostate cancer. SOCIAL HISTORY: She lives with her . Denies any smoking, illicit drug abuse or alcohol abuse. ALLERGIES: She is allergic to Vancomycin. REVIEW OF SYSTEMS: Constitutional: She denies any fevers or chills. She does report malaise and weakness. Eyes: She denies any blurry vision, double vision. ENT: She denies any dysphagia or odynophagia. Cardiovascular: She denies any chest pain or palpitations. Respiratory: She denies any shortness of breath. Gastrointestinal: She reports nausea, vomiting. Genitourinary: She reports no urine output. Musculoskeletal: She denies any muscle aches and pains. Skin: She denies any rashes or ulcers. Endocrine: She reports history of diabetes, insulin dependent. DRUG WORKER: She reports weakness. All other review of systems is negative. PHYSICAL EXAMINATION: GENERAL APPEARANCE: The patient is awake, alert, oriented x3. VITAL SIGNS: Temperature is 95.9 degrees Fahrenheit, blood pressure is 187/97, pulse is 58, respiratory rate of 20, saturating 93% on room air. HEAD AND NECK: Extraocular muscles intact. Pupils are equally round and reactive to light. Mucous membranes are moist. Neck is supple. Mildly elevated jugular venous distention is noted. CARDIOVASCULAR: S1, S2, regular rate. EXTREMITIES: 2+ edema of the bilateral lower extremities. RESPIRATORY: Decreased breath sounds at the bases. ABDOMEN: Soft, positive bowel sounds, nontender. Multiple surgical scars are noted in the abdomen. MUSCULOSKELETAL: Edema of the bilateral lower extremities as mentioned above. DRUG WORKER: No focal deficits. Power is 5/5 in all extremities. LAB REVIEW: CBC showed a WBC count of 5.5, hemoglobin 11.6, platelet count 102. BMP showed sodium 133, potassium is 7; it was 8 originally on arrival, chloride 96, bicarbonate is 20, BUN 84, creatinine is 4.69, calcium 9.2. BNP was 132,177. IMAGING: A chest x-ray was done which showed a moderate right pleural effusion with underlying air space disease. CAT scan of the abdomen and pelvis was done which showed cholelithiasis, moderate abdominal wall and pelvic ascites, large right sided pleural effusion, chronic calcific pericarditis. CURRENT INPATIENT MEDICATIONS: The patient was given IV calcium gluconate, Tylenol and dextrose. She is on Citalopram 10 mg q. h.s., Heparin 5,000 units q. 12, Hydralazine 10 mg p.o. twice daily, insulin 10 units IV, insulin Lispro sliding scale, Losartan 100 mg p.o. daily, Zofran p.r.n., Veltassa 8.4 grams p.o. on non dialysis days, Renvela 1,600 mg p.o. with meals. Kayexalate 30 grams p.o. times one dose was given. ASSESSMENT AND PLAN: 1. Severe hyperkalemia - The patient is noncompliant with medications and Veltassa and potassium restriction. She missed her dialysis today. She is urgently being dialyzed with a 1K bath. Potassium should get better after that. No need of potassium level check after dialysis. Next level will be done tomorrow morning. 2. Acute decompensated congestive heart failure the patient's latest echocardiogram is from last year. It showed preserved left ventricular ejection fraction. The patient has right sided effusion and abdominal and pelvic ascites. She is volume overloaded. Three kg of fluid will be removed today and another session of dialysis will be done tomorrow morning. 3. Hypervolemic hyponatremia - sodium level should improve after hemodialysis. 4. Anemia in end-stage renal disease - hemoglobin level is more than 11 and blood pressure is high. No need of Aranesp administration at this time. 5. Insulin dependent diabetes - continue insulin sliding scale and Levemir. Glucose levels are within the acceptable range. 6. Hypertensive urgency it is secondary to fluid overload. Continue current dose of Hydralazine and Losartan. Optimization of fluid status would help improve blood pressure as well. 7. Chronic kidney disease, mineral bone disease - continue current dose of Renvela with meals. She is noncompliant with phosphorous binders at home. Thank you for involving me in the care of this patient. I shall be happy to follow the patient along with you tomorrow morning.
[2020-08-27] MEDS: (RENVELA) SEVELAMER **CARBONate** 800 MG TAB PO SCH ×3 (08:00→18:32)
--- NOTE | 2020-08-27 08:21 | ECGEPIP ---
[facility] Test Date: 2020-08-27 Pat Name: KAYLEE TRAN Department: Room: [place] [address] Gender: Female Controlled [employer] Brazer: ALBERTO : 1975 Requested By: LINA SCHMITT Order Number: [id number] Reading MD: Papito Irby Measurements Intervals [place] Rate: 69 P: 27 WY: 156 QRS: -14 QRSD: 96 T: 112 QT: 446 QTc: 477 Interpretive Statements normal sinus rhythm LA conduction disturbance low limb voltages with incomplete RIGHT BUNDLE BRANCH BLOCK and slow precordial R wave progression; body habitus versus pulmonary disease Nonspecific ST/T wave abnormalities Shortening of [place] and QRS duration from 08/26/20 Electronically Signed on 08-27-2020 8:21:43 EDT by Papito Irby
[2020-08-27 08:25] LABS: HEMATOCRIT 32.7 % (36.0-47.0); HEMOGLOBIN 10.5 g/dl (12.0-15.5); MEAN CORPUSCULAR HEMOGLOBIN 34.8 pg (27.0-33.0); MEAN CORPUSCULAR HGB CONC 32.1 g/dl (32.0-36.5); MEAN CORPUSCULAR VOLUME 108.3 fl (80.0-96.0); RED BLOOD COUNT 3.02 10^6/uL (4.00-5.40); WHITE BLOOD COUNT 6.1 10^3/uL (4.0-10.0)
[2020-08-27] MEDS ORDERED: VITAMIN D 50,000 UNITS CAPSULE (ERGOCALCIFEROL 1.25MG) PO SCH (09:00)
[2020-08-27 09:06] LABS: PLATELET COUNT, AUTOMATED 88 10^3/uL (150-450)
--- NOTE | 2020-08-27 11:05 | ECGEPIP ---
[facility] - ED Test Date: 2020-08-26 Pat Name: KAYLEE TRAN Department: Room: - Gender: Female Medical Lab Director: FF : 1975 Requested By: KATE Roman Order Number: [id number] Reading MD: Jackie Valencia Measurements Intervals [place] Rate: 55 P: 21 AL: 224 QRS: 178 QRSD: 122 T: 65 QT: 530 QTc: 507 Interpretive Statements Sinus bradycardia with 1st degree AV block Lateral infarct , age undetermined low voltage limb prwp decreased rate 06/10/20 Electronically Signed on 08-27-2020 11:05:01 EDT by Jackie Valencia
[2020-08-27 12:00] VITALS: BP 131/63
[2020-08-27] MEDS: PATIROMER SORBITEX CALCIUM 8.4 GM POWDER PACKET (VELTASSA) PO SCH (12:00)
--- NOTE | 2020-08-27 12:21 | IPN ---
PROGRESS NOTE DATE: 08/27/2020 SUBJECTIVE: Patient was seen and examined at the bedside today morning during hemodialysis procedure. She is getting second session of hemodialysis done today. First session was done emergently yesterday because of fluid overload and severe hyperkalemia. Patient reports that she is still feeling nauseated. She has abdominal pain. She does not want to eat much. Beta-hydroxybutyrate level was checked today morning, which is high at more than 46, so patient is in euglycemic diabetic ketoacidosis (DKA). OBJECTIVE: VITAL SIGNS: Temperature 98.6 degrees Fahrenheit, blood pressure 128/59, pulse 72, respiratory rate 18, saturating 92% on room air. INTAKE AND OUTPUT: Ultrafiltration with hemodialysis was 3 liters yesterday. PHYSICAL EXAMINATION: GENERAL: Patient is awake, alert, oriented times three, laying in bed, feeling nauseated. HEAD AND NECK EXAM: Extraocular muscles intact. Pupils equally round and reactive to light. Patient has bilateral pseudophakia. Neck is supple. There is no jugular venous distention (JVD). CARDIOVASCULAR: S1, S2. Regular rate. Trace edema of the bilateral lower extremities. RESPIRATORY: Decreased breath sounds at the bases, right worse than left. Decreased vocal resonance on the right side. ABDOMEN: Soft. Positive bowel sounds. Nontender. No organomegaly MUSCULOSKELETAL: Trace edema of the bilateral lower extremities. CENTRAL NERVOUS SYSTEM (WEB MARKETING ASSISTANT): No focal deficit. Power is 5/5 in all extremities. LABORATORY STUDIES: CBC showed WBC 6.1, hemoglobin 10.5, platelets 88. BMP showed sodium 132, potassium 4.8, chloride 95, bicarbonate 18, BUN 48, creatinine 3.3, calcium 9.2, magnesium 2.8. Beta-hydroxybutyrate is more than 46. CURRENT INPATIENT MEDICATIONS: Patient's medications were all reviewed by myself. No significant change in the medications today as compared with yesterday. ASSESSMENT AND PLAN: 1. End-stage renal disease. Patient was emergently dialyzed yesterday for fluid overload and hyperkalemia. She is being dialyzed again because she has a right-sided pleural effusion on the x-ray. However, when she was on dialysis, I happened to see her labs, that she has euglycemic diabetic ketoacidosis (DKA), so I have cut short the treatment to three hours only and I would remove 2-2.5 liters of fluid as tolerated by her blood pressure. 2. Euglycemic diabetic ketoacidosis. Patient has high beta-hydroxybutyrate. She is nauseated. Her sugars are less than 300. She would probably need another beta-hydroxybutyrate after dialysis. If it is still high, she would need to go to the intensive care unit (ICU) on insulin and intravenous (IV) dextrose fluid. 4. Right-sided pleural effusion. Patient reports that this has been drained twice in the past. Once she is clinically stable, she can go to interventional radiology (IR) and have the pleural effusion drained. 5. Hypertension. Blood pressure is controlled with the current regimen. No change recommended at this time. 6. Hyperkalemia. It has resolved with hemodialysis. Potassium level is within the acceptable range. 7. Chronic kidney disease/mineral bone disease. Continue Renvela. DISPOSITION: I discussed with the hospitalist team and told them that patient was in diabetic ketoacidosis (DKA). They will review the beta-hydroxybutyrate after dialysis and have the patient transferred to ICU.
[2020-08-27] MEDS: LOSARTAN 50MG TABLET PO SCH (12:50)
[2020-08-27 13:57] LABS: ABG BASE EXCESS 2.3 (-2.0-2.0); ABG HCO3 27.4 MEQ/L (22.0-26.0); ABG O2 SATURATION 93.9 % (95.0-99.0); ABG PARTIAL PRESSURE CO2 44.5 mmHg (35.0-45.0); ABG PARTIAL PRESSURE O2 74.1 mmHg (75.0-100.0); ABG STANDARD HCO3 26.5 MEQ/L (22.0-26.0); ABG TOTAL CO2 28.8 MEQ/L (22.0-29.0); ABG pH (ARTERIAL) 7.407 UNITS (7.350-7.450)
[2020-08-27 14:09] LABS: CALCIUM LEVEL 8.7 MG/DL (8.5-10.1); CREATININE FOR GFR 1.89 MG/DL (0.55-1.30); GLOMERULAR FILTRATION RATE 30.9 (>58); POTASSIUM SERUM 3.7 MEQ/L (3.5-5.1)
[2020-08-27 14:25] LABS: ACETONE/KETONE 10.97 MG/DL (<2.81)
--- NOTE | 2020-08-27 15:18 | IPNPDOC ---
Subjective Date Seen The patient was seen on 08/27/20. Subjective Chief Complaint/HPI Mrs. Nye is a 44 year old female with ESRD on dialysis and type 1 DM who presents with generalized weakness and diarrhea and found to have hyperkalemia, hypertensive urgency, and fluid overload from missed dialysis. She was seen in the morning. She was feeling nauseous. Denied any chest pain or dyspnea. Objective Physical Examination General Exam: Positive: Alert, Cooperative Chest Exam: Positive: Clear to auscultation Heart Exam: Positive: Rate Normal, Regular Rhythm Abdomen Exam: Positive: Normal bowel sounds Extremity Exam: Positive: Edema, Other (Chronic left foot wound, erythema of right distal lower leg erythema with some excoriation) Neuro Exam: Positive: Normal Speech Psych Exam: Positive: Mental status NL Assessment /Plan Assessment Mrs. Nye is a 44 year old female with ESRD on dialysis and type 1 DM who pre sents with generalized weakness and diarrhea and found to have hyperkalemia, hypertensive urgency, and fluid overload from missed dialysis. Nephrology consulted, recommendations appreciated. Plan/VTE VTE Prophylaxis Ordered?: Yes Plan 1. Fluid overload -2/2 missed dialysis -Nephrology consulted recommendations appreciated -Patient on dialysis T,Th,Sat 2. Severe Hyperkalemia -Patient had emergent dialysis on admission -2/2 missed dialysis -Patient had dialysis and potassium is at goal 3. Hypertension -2/2 missed dialysis -Patient had dialysis and blood pressure is better controlled -Continue losartan and hydralazine 4. Nausea/vomiting/diarrhea -GI panel ordered -Start Protonix for dyspepsia 5. Right sided pleural effusion -Will order for a diagnostic thoracentesis when stable 6. Anxiety/depression -Continue escitalopram 7. Diabetes mellitus -Continue sliding scale insulin 8. DVT ppx -Heparin subQ Disposition: Pending clinical improvement. Will need a diagnostic thoracentesis when stable VS, I&O, 24H, Fishbone Vital Signs/I&O Vital Signs Date Time Temp Pulse Resp B/P (MAP) Pulse Ox O2 Delivery O2 Flow Rate FiO2 08/27/20 12:50 131/63 08/27/20 12:00 97.0 62 18 93 Room Air I&O- Last 24 Hours up to 6 AM 08/27/20 06:00 Output Total 3000 ml Balance -3000 ml Laboratory Data 24H LABS Laboratory Tests 2 08/26/20 16:58: Immature Granulocyte % (Auto) 0.2, Neutrophils (%) (Auto) 68.6H, Lymphocytes (%) (Auto) 17.5L, Monocytes (%) (Auto) 9.5H, Eosinophils (%) (Auto) 3.3H, Basophils (%) (Auto) 0.9, Neutrophils # (Auto) 3.8, Lymphocytes # (Auto) 1.0L, Monocytes # (Auto) 0.5, Eosinophils # (Auto) 0.2, Basophils # (Auto) 0.1, Nucleated Red Blood Cells % (auto) 0.0, Estimated Mean Plasma Glucose 203H, Hemoglobin A1c 8.7 08/26/20 17:04: POC Troponin I (Misc) 0.07 08/26/20 18:38: Anion Gap 11, Glomerular Filtration Rate 9.0L, Calcium Level 9.4, Magnesium Level 3.5H, OX-Wna-O-Type Natriuretic Peptide 124269T, Lipase 38L 08/26/20 20:15: Coronavirus (COVID-19)(PCR) NEGATIVE, Influenza Type A (RT-PCR) NEGATIVE, Influenza Type B (RT-PCR) NEGATIVE, Respiratory Syncytial Virus (PCR) NEGATIVE 08/26/20 21:30: Anion Gap 17H, Glomerular Filtration Rate 10.8L, Calcium Level 9.2 08/27/20 01:41: Bedside Glucose (Misc Panel) 179H 08/27/20 03:40: Bedside Glucose (Misc Panel) 251H 08/27/20 05:46: Anion Gap 19H, Glomerular Filtration Rate 16.1L, Calcium Level 9.2, Nucleated Red Blood Cells % (auto) 0.0, Immature Platelet Fraction 8.3, Magnesium Level 2.8H, Total Bilirubin 1.0, Aspartate Amino Transf (AST/SGOT) 50H, Alanine Aminotransferase (ALT/SGPT) 64, Alkaline Phosphatase 431H, Total Protein 6.5, Albumin 3.2, Albumin/Globulin Ratio 1.0L, B-Hydroxybutyrate > 46.00H 08/27/20 12:39: Bedside Glucose (Misc Panel) 61L 08/27/20 13:17: Anion Gap 8, Glomerular Filtration Rate 30.9L, Calcium Level 8.7, B- Hydroxybutyrate 10.97H 08/27/20 13:31: Blood Gas Bicarbonate Standard 26.5H, Arterial Blood pH 7.407, Arterial Blood Partial Pressure CO2 44.5, Arterial Blood Partial Pressure O2 74.1L, Arterial Blood Total CO2 28.8, Arterial Blood HCO3 27.4H, Arterial Blood Base Excess 2.3H, Arterial Blood Oxygen Saturation 93.9L CBC/BMP Laboratory Tests 08/26/20 16:58 08/26/20 18:38 08/26/20 21:30 08/27/20 02:03 08/27/20 05:46 08/27/20 13:17 SOMMER LANGFORD DO Aug 27, 2020 15:18
[2020-08-27 15:41] VITALS: BP 134/64
[2020-08-27 17:27] LABS: ACETONE/KETONE 11.52 MG/DL (<2.81); CALCIUM LEVEL 8.6 MG/DL (8.5-10.1); CREATININE FOR GFR 2.23 MG/DL (0.55-1.30); GLOMERULAR FILTRATION RATE 25.5 (>58)
[2020-08-27 20:00] VITALS: BP 144/67
[2020-08-27 20:33] LABS: ACETONE/KETONE 11.8 MG/DL (<2.81); CALCIUM LEVEL 8.3 MG/DL (8.5-10.1); CREATININE FOR GFR 2.44 MG/DL (0.55-1.30); POTASSIUM SERUM 4.4 MEQ/L (3.5-5.1)
[2020-08-27] MEDS: PANTOPRAZOLE 40MG TAB (PROTONIX) PO SCH (22:11)
[2020-08-28] VITALS: BP 150/68
[2020-08-28 04:00] VITALS: BP 146/70
[2020-08-28] MEDS ORDERED: HumaLOG INSULIN (NovoLOG) PER UNIT SC ONE (04:00)
[2020-08-28 04:57] LABS: HEMATOCRIT 33.2 % (36.0-47.0); HEMOGLOBIN 10.5 g/dl (12.0-15.5); MEAN CORPUSCULAR HEMOGLOBIN 34.1 pg (27.0-33.0); MEAN CORPUSCULAR HGB CONC 31.6 g/dl (32.0-36.5); MEAN CORPUSCULAR VOLUME 107.8 fl (80.0-96.0); PLATELET COUNT, AUTOMATED 100 10^3/uL (150-450); RED BLOOD COUNT 3.08 10^6/uL (4.00-5.40)
[2020-08-28 05:19] LABS: CALCIUM LEVEL 8.4 MG/DL (8.5-10.1); CREATININE FOR GFR 3.04 MG/DL (0.55-1.30); GLOMERULAR FILTRATION RATE 17.9 (>58); POTASSIUM SERUM 4.3 MEQ/L (3.5-5.1)
[2020-08-28] MEDS ORDERED: HumuLIN N INSULIN (NovoLIN N) PER UNIT SC SCH (07:30)
[2020-08-28 07:35] VITALS: BP 147/71
--- NOTE | 2020-08-28 08:27 | REP ---
INDICATION: Follow Up Pleural effusion COMPARISON: 08/26/2020 TECHNIQUE: PA and lateral. FINDINGS: Right-sided opacities consistent with pleural effusion and airspace disease remains stable. Mediastinum, cardiac silhouette and remainder of the aerated lung fisher are relatively normal and stable. No new acute process appreciated. IMPRESSION: No change from prior examination. Moderate right pleural effusion and right lower lobe airspace disease again identified. <Electronically signed by Merrick Vivar > 08/28/20 [id number]
[2020-08-28] MEDS: HEPARIN SOD (PORCINE) 5000UNITS/ML 1ML VIAL/SYRINGE SC SCH ×2 (08:53→21:15)
[2020-08-28] MEDS: HumaLOG INSULIN (NovoLOG) PER UNIT SC SCH ×4 (08:54→21:16)
[2020-08-28] MEDS: (RENVELA) SEVELAMER **CARBONate** 800 MG TAB PO SCH ×3 (08:54→18:00)
[2020-08-28] MEDS: LOSARTAN 50MG TABLET PO SCH (08:55)
[2020-08-28] MEDS: **hydrALAZINE** 10 MG TAB PO SCH ×2 (08:55→21:13)
[2020-08-28 11:08] LABS: ACETONE/KETONE 16.31 MG/DL (<2.81)
[2020-08-28 11:41] VITALS: BP 153/70
--- NOTE | 2020-08-28 11:50 | IPN ---
PROGRESS NOTE DATE: 08/28/2020 SUBJECTIVE: Patient was seen and examined at the bedside today morning. She is afebrile, hemodynamically stable. She reports her appetite is getting better. She is no longer nauseated. She had elevated beta hydroxybutyrate levels yesterday and they are still mildly persistent and staying around 16 as of today morning. Patient was also found to have persistent right sided pleural effusion and she is supposed to be going for thoracentesis tomorrow morning. Today is patient's regular day of dialysis and she agreed to go for dialysis again today. OBJECTIVE: VITAL SIGNS: Temperature is 97 degrees Fahrenheit, blood pressure is 147/71, pulse is 56, respiratory rate 18, saturating 94% on room air. INTAKE AND OUTPUT: Urine output is not recorded. Ultrafiltration was 4.5 liters yesterday, weight on the bed scale is 69.3 kg. GENERAL: Patient is awake, alert and oriented x3, laying in bed in no apparent distress. HEAD AND NECK: Extraocular muscles intact. Pupils equally round and reactive to light. Mucous membranes are moist. NECK: Supple. There is no significant JVD. CARDIOVASCULAR: S1 and S2, regular rate. Trace edema of the bilateral lower extremities. RESPIRATORY: Decreased breath sounds at the bases and decreased focal resonance from the right base up to the right mid lung zone. ABDOMEN: Soft, positive bowel sounds, nontender. No organomegaly. MUSCULOSKELETAL: No significant edema of the bilateral lower extremities. OIL RAG WASHER: Power is 5/5 in all extremities. LABORATORY DATA: CBC showed a WBC of 4, hemoglobin 10.5, platelets of 100,000. BMP showed a sodium of 133, potassium 4.3, chloride 100, bicarbonate 25, BUN 33, creatinine is 3.04. Sugar is 244. Beta hydroxybutyrate level is 16.3. IMAGING: A chest x-ray was done today morning which showed persistent moderate right sided pleural effusion. CURRENT INPATIENT MEDICATIONS: Patient's medications were all reviewed by myself. No significant change in the medications today as compared with yesterday except that her insulin NPH has been changed to 8 units subcutaneously twice a day and she is getting insulin Lispro sliding scale as well. ASSESSMENT AND PLAN: 1. Endstage renal disease. Patient's regular dialysis days are Tuesday, and Tuesday. Today is regular day of dialysis even though she has been dialyzed two days in a row, in order to put her back on the schedule, she will be sent again today for dialysis. 2. Euglycemic diabetic ketoacidosis. Patient still has elevated ketone levels. She is already on insulin coverage. Another session of dialysis will help improve her acidosis as well. If acetone does not get better after dialysis, then she will need dextrose infusion and insulin drip. 3. Right sided pleural effusion. Patient is going to have thoracentesis done tomorrow morning. 4. Hypertension, blood pressure is controlled with current regimen. 5. Disposition: Patient is going to have dialysis today and thoracentesis tomorrow and hopefully after thoracentesis she should be able to be discharged home.
--- NOTE | 2020-08-28 15:31 | IPNPDOC ---
Subjective Date Seen The patient was seen on 08/28/20. Subjective Chief Complaint/HPI Mrs. Nye is a 44 year old female with ESRD on dialysis and type 1 DM who presents with generalized weakness and diarrhea and found to have hyperkalemia, hypertensive urgency, and fluid overload from missed dialysis. Yesterday, I had decreased her NPH insulin due to low blood glucose. This morning, she had elevated ketones. Increased her morning dose of NPH insulin to home dose and will increase evening dose of NPH. Otherwise, patient was seen in the morning. She denies any abdominal pain, nausea, or diarrhea. She was tolerating her breakfast without issue. She has planned dialysis today. We will hold the morning dose of heparin for tho racentesis tomorrow morning. Objective Physical Examination General Exam: Positive: Alert, Cooperative Chest Exam: Positive: Clear to auscultation Heart Exam: Positive: Rate Normal, Regular Rhythm Abdomen Exam: Positive: Normal bowel sounds, Soft Extremity Exam: Positive: Edema, Other (Chronic left foot wound, erythema of right distal lower leg erythema with some excoriation) Neuro Exam: Positive: Normal Speech Psych Exam: Positive: Mental status NL Assessment /Plan Assessment Mrs. Nye is a 44 year old female with ESRD on dialysis and type 1 DM who presents with generalized weakness and diarrhea and found to have hyperkalemia, hypertensive urgency, and fluid overload from missed dialysis. Nephrology consulted, recommendations appreciated. Patient has elevated ketones, but with no gap or acidosis. Will try increasing her NPH insulin. If not effective, may need insulin drip with fluids with dextrose or may need to consider switching from NPH insulin to long acting insulin (Levemir). Plan/VTE VTE Prophylaxis Ordered?: Yes Plan 1. Fluid overload -2/2 missed dialysis -Nephrology consulted recommendations appreciated -Patient on dialysis T,Th,Sat 2. Severe Hyperkalemia -Patient had emergent dialysis on admission -2/2 missed dialysis -Patient had dialysis and potassium is at goal 3. Hypertension -2/2 missed dialysis -Patient had dialysis and blood pressure is better controlled -Continue losartan and hydralazine 4. Nausea/vomiting/diarrhea -Resolved -Start Protonix for dyspepsia 5. Right sided pleural effusion -Ordered for thoracentesis tomorrow. Hold morning dose of heparin 6. Anxiety/depression -Continue escitalopram 7. Diabetes mellitus -Continue sliding scale insulin -Continue NPH 8. Ketosis -Elevated ketones -Will need to recheck ketones after dialysis -Increasing NPH insulin. If this does not work, may need either insulin drip and dextrose fluids or consider switching to Levemir 9. DVT ppx -Heparin subQ Disposition: Planning for thoracentesis tomorrow VS, I&O, 24H, Fishbone Vital Signs/I&O Vital Signs Date Time Temp Pulse Resp B/P (MAP) Pulse Ox O2 Delivery O2 Flow Rate FiO2 08/28/20 11:41 97.0 56 18 153/70 (97) 99 Room Air I&O- Last 24 Hours up to 6 AM 08/28/20 06:00 Intake Total 0 ml Output Total 1500 ml Balance -1500 ml Laboratory Data 24H LABS Laboratory Tests 2 08/27/20 15:30: Bedside Glucose (Misc Panel) 78 08/27/20 16:47: Anion Gap 7L, Glomerular Filtration Rate 25.5L, Calcium Level 8.6, B- Hydroxybutyrate 11.52H 08/27/20 17:26: Bedside Glucose (Misc Panel) 116H 08/27/20 19:52: Anion Gap 8, Glomerular Filtration Rate 23.0L, Calcium Level 8.3L, B- Hydroxybutyrate 11.80H 08/27/20 19:58: Bedside Glucose (Misc Panel) 168H 08/28/20 03:52: Bedside Glucose (Misc Panel) 227H 08/28/20 04:38: Nucleated Red Blood Cells % (auto) 0.0, Anion Gap 8, Glomerular Filtration Rate 17.9L, Calcium Level 8.4L, B-Hydroxybutyrate 16.31H 08/28/20 11:30: Bedside Glucose (Misc Panel) 152H CBC/BMP Laboratory Tests 08/27/20 16:47 08/27/20 19:52 08/28/20 04:38 SOMMER LANGFORD DO Aug 28, 2020 15:31
[2020-08-28 17:21] VITALS: BP 141/66
[2020-08-28] MEDS: HumuLIN N INSULIN (NovoLIN N) PER UNIT SC SCH (17:30)
[2020-08-28 19:11] VITALS: BP 151/71
[2020-08-28] MEDS: ESCITALOPRAM OXALATE 10 MG TAB (LEXAPRO) PO SCH (21:13)
[2020-08-28] MEDS: PANTOPRAZOLE 40MG TAB (PROTONIX) PO SCH (21:13)
[2020-08-29] VITALS (9 sets, daily range): BP systolic 125–170; BP diastolic 55–76
[2020-08-29 05:23] LABS: HEMATOCRIT 33.6 % (36.0-47.0); HEMOGLOBIN 10.5 g/dl (12.0-15.5); MEAN CORPUSCULAR HEMOGLOBIN 33.8 pg (27.0-33.0); MEAN CORPUSCULAR HGB CONC 31.3 g/dl (32.0-36.5); RED BLOOD COUNT 3.11 10^6/uL (4.00-5.40); WHITE BLOOD COUNT 4.1 10^3/uL (4.0-10.0)
[2020-08-29 05:24] LABS: PLATELET COUNT, AUTOMATED 83 10^3/uL (150-450)
[2020-08-29 05:43] LABS: CALCIUM LEVEL 8.6 MG/DL (8.5-10.1); CREATININE FOR GFR 2.92 MG/DL (0.55-1.30); GLOMERULAR FILTRATION RATE 18.7 (>58); POTASSIUM SERUM 4.2 MEQ/L (3.5-5.1); TOTAL PROTEIN 6.4 GM/DL (6.4-8.2)
[2020-08-29] MEDS ORDERED: LIDOCAINE 1% SDV 5ML VIAL SC PRN (06:00)
[2020-08-29] MEDS ORDERED: SODIUM BICARBONATE 8.4% INJ 50MEQ 50 ML VIAL As Ordered ONE (07:50)
[2020-08-29] MEDS ORDERED: LIDOCAINE 1% MDV 20ML VIAL As Ordered ONE (07:50)
--- NOTE | 2020-08-29 08:53 | REP ---
INDICATION: POST RIGHT THORA, 2 VIEW. COMPARISON: Multiple latest yesterday TECHNIQUE: PA and lateral FINDINGS: There is cardiomegaly status quo. The right basilar opacity has improved. Persistent CP angle blunting is again noted. There are no new abnormal opacities. The left lung is clear and stable. There is no change in the osseous structures. IMPRESSION: Status post thoracentesis with improved right lung base as described above. There is no evidence of a pneumothorax. <Electronically signed by Elvis Pfeiffer > 08/29/20 0853
[2020-08-29 09:06] LABS: PH BODY FLUID 7.556 UNITS (NOT ESTABLISHED); SOURCE, BODY FLUID pH PLEURAL
[2020-08-29 09:12] LABS: APPEARANCE, BODY FLUID CLEAR (CLEAR); PLEURAL FL COLOR YELLOW (COLORLESS); SOURCE, BODY FLUID PLEURAL
[2020-08-29 09:21] LABS: AMYLASE, BODY FLUID 28 U/L (NOT ESTABLISHED); CHOLESTEROL, BODY FLUID < 50 MG/DL (NOT ESTABLISHED); LDH, BODY FLUID 95 U/L (NOT ESTABLISHED); SOURCE, BODY FLUID AMYLASE PLEURAL; SOURCE, BODY FLUID CHOL PLEURAL; SOURCE, BODY FLUID GLUCOSE PLEURAL; SOURCE, BODY FLUID LDH PLEURAL; SOURCE, BODY FLUID TRIG PLEURAL; TRIGLYCERIDE, BODY FLUID 34 MG/DL (NOT ESTABLISHED)
[2020-08-29 09:23] LABS: SOURCE, BODY FLUID ALBUMIN PLEURAL; SOURCE, BODY FLUID TOT PROTEIN PLEURAL; TOTAL PROTEIN, BODY FLUID 3.1 G/DL (NOT ESTABLISHED)
[2020-08-29] MEDS: LOSARTAN 50MG TABLET PO SCH (09:32)
[2020-08-29] MEDS: (RENVELA) SEVELAMER **CARBONate** 800 MG TAB PO SCH ×3 (09:32→17:45)
[2020-08-29] MEDS: **hydrALAZINE** 10 MG TAB PO SCH ×2 (09:32→20:57)
[2020-08-29] MEDS: HumaLOG INSULIN (NovoLOG) PER UNIT SC SCH ×4 (09:33→21:00)
[2020-08-29] MEDS: HumuLIN N INSULIN (NovoLIN N) PER UNIT SC SCH (09:34)
--- NOTE | 2020-08-29 10:07 | REP ---
INDICATION: Right pleural effusion The patient has a history of right pleural effusion COMPARISON: None. TECHNIQUE: The procedure was performed by Sabrina Sosa [facility], under the direct supervision of Dr. Cuba The risks and benefits of the procedure were explained to the patient and an informed consent was obtained both verbally and written. Directly prior to the start of the procedure a formal time-out was completed in the procedure room. Pleural fluid in right lung zone was localized using ultrasound guidance. The skin was prepped and draped in a sterile fashion. Eight ML of buffered lidocaine was used as a local anesthetic. A small skin fabian was made and an 8-Wolof multi side-hole catheter was inserted using trocar technique. FINDINGS: Eight hundred mL of yellow colored fluid was withdrawn and sent to the laboratory for further analysis. The patient tolerated the procedure well and there were no immediate complications. After the appropriate amount of monitored convalescence, the patient was discharged from the department. IMPRESSION: Ultrasound-guided thoracentesis with removal of 800 mL of pleural fluid. <Electronically signed by Sabrina Sosa > 08/29/20 0935 <Electronically signed by Ricardo Cuba > 08/29/20 1006
--- NOTE | 2020-08-29 11:30 | IPNPDOC ---
Subjective Date Seen The patient was seen on 08/29/20. Subjective Chief Complaint/HPI Mrs. Nye is a 44 year old female with ESRD on dialysis and type 1 DM who presents with generalized weakness and diarrhea and found to have hyperkalemia, hypertensive urgency, and fluid overload from missed dialysis. She was seen after thoracentesis this morning. Other than the pain from her thoracentesis, she feel better. Fluid analysis demonstrates transudative fluid. Objective Physical Examination General Exam: Positive: Alert, Cooperative Chest Exam: Positive: Clear to auscultation Heart Exam: Positive: Rate Normal, Regular Rhythm Abdomen Exam: Positive: Normal bowel sounds, Soft Extremity Exam: Positive: Edema, Other (Chronic left foot wound, erythema of right distal lower leg erythema with some excoriation) Neuro Exam: Positive: Normal Speech Psych Exam: Positive: Mental status NL Assessment /Plan Assessment Mrs. Nye is a 44 year old female with ESRD on dialysis and type 1 DM who presents with generalized weakness and diarrhea and found to have hyperkalemia, hypertensive urgency, and fluid overload from missed dialysis. Nephrology consulted, recommendations appreciated. Patient has elevated ketones, but with no gap or acidosis. Currently having difficulty with NPH as at 1730, her glucose is generally low resulting in holding her NPH insulin. Her following blood glucose would be elevated. Will try switching from NPH BID insulin to Levemir qHS. Plan/VTE VTE Prophylaxis Ordered?: Yes Plan 1. Fluid overload -2/2 missed dialysis -Nephrology consulted recommendations appreciated -Patient on dialysis T,Th,Sat 2. Severe Hyperkalemia -Patient had emergent dialysis on admission -2/2 missed dialysis -Patient had dialysis and potassium is at goal 3. Hypertension -2/2 missed dialysis -Patient had dialysis and blood pressure is better controlled -Continue losartan and hydralazine 4. Nausea/vomiting/diarrhea -Resolved -Start Protonix for dyspepsia 5. Right sided pleural effusion -Ordered for thoracentesis tomorrow. Hold morning dose of heparin 6. Anxiety/depression -Continue escitalopram 7. Diabetes mellitus -Continue sliding scale insulin -Will switch from NPH to Levemir to see if we have more consistent insulin coverage. NPH being held at 1730 due to low glucose, but glucose becomes elevated at 2100. 8. Ketosis -Elevated ketones -Will switch from NPH to Levemir for more consistent basal insulin. 9. DVT ppx -Heparin subQ Disposition: Monitor post thoracentesis. Patient may need rehab. VS, I&O, 24H, Fishbone Vital Signs/I&O Vital Signs Date Time Temp Pulse Resp B/P (MAP) Pulse Ox O2 Delivery O2 Flow Rate FiO2 08/29/20 10:10 96.9 60 16 170/76 (107) 96 Room Air I&O- Last 24 Hours up to 6 AM 08/29/20 06:00 Intake Total 598 ml Output Total 3000 ml Balance -2402 ml Laboratory Data 24H LABS Laboratory Tests 2 08/28/20 11:30: Bedside Glucose (Misc Panel) 152H 08/28/20 17:27: Bedside Glucose (Misc Panel) 99 08/28/20 20:48: Bedside Glucose (Misc Panel) 260H 08/29/20 04:42: Nucleated Red Blood Cells % (auto) 0.0, Immature Platelet Fraction 6.2, Anion Gap 9, Glomerular Filtration Rate 18.7L, Calcium Level 8.6, Lactate Dehydrogenase 210, Total Protein 6.4 08/29/20 08:45: Body Fluid pH 7.556, Body Fluid pH Source PLEURAL, Body Fluid WBC (Auto) 117H, Body Fluid RBC (Auto) < 2, Body Fluid Mononuclear Cells % Auto 88.0H, Fluid Polymorphonuclear Cell % Auto 12.0H, Body Fluid Glucose Source PLEURAL, Body Fluid Glucose 314, Body Fluid Protein Source PLEURAL, Body Fluid Total Protein 3.1, Body Fluid Albumin Source PLEURAL, Body Fluid Albumin 1.5, Body Fluid LDH Source PLEURAL, Body Fluid Lactate Dehydrogenase 95, Body Fluid Amylase Source PLEURAL, Body Fluid Amylase 28, Body Fluid Cholesterol < 50, Body Fluid Cholesterol Source PLEURAL, Body Fluid Triglyceride Source PLEURAL, Body Fluid Triglycerides 34, Pleural Fluid Source PLEURAL, Pleural Fluid Color YELLOW, Pleural Fluid Appearance CLEAR 08/29/20 09:15: Bedside Glucose (Misc Panel) 349H CBC/BMP Laboratory Tests 08/29/20 04:42 Microbiology Microbiology 08/29/20 Gram Stain, Received Pending 08/29/20 Anaerobic Culture, Received Pending 08/29/20 Body Fluid Culture, Received Pending SOMMER LANGFORD DO Aug 29, 2020 11:02
[2020-08-29] MEDS: PATIROMER SORBITEX CALCIUM 8.4 GM POWDER PACKET (VELTASSA) PO SCH (12:41)
[2020-08-29] MEDS: CARBAMIDE PEROXIDE 6.5% OTIC SOLN 15ML AU SCH ×2 (15:45→20:58)
--- NOTE | 2020-08-29 16:03 | CR ---
CONSULTATION DATE: 08/28/2020 Advanced wound care consult via telemedicine. CONSULTATION REQUESTED BY: Dr. Garcia REASON FOR CONSULTATION: Left lateral foot wound. Wound care telemedicine provides a visual assessment of a wound without the benefit of physical examination. It can assist with establishing a diagnosis and etiology. This allows for an initial treatment plan. As wounds often change, it may be necessary to modify the original care. Our recommendation is periodic wound reassessment to monitor wound treatment. Failure to comply may result in nonhealing of the wound, possible complications, and/or poor outcome. The recommendations given will serve as treatment options. As i will not be following this patient, this care plan will require the attending physician to give and sign the orders. Upon discharge, outpatient followup can be scheduled at our wound care center. A 44-year-old diabetic female on dialysis, status post previous kidney transplant, which failed, and pancreatic islet cell transplant, which also failed, who was admitted for diarrhea and electrolyte imbalance. She is diabetic and on dialysis. Patient has a left foot wound, and I have been asked to comment on treatment options. Patient has been seen at our wound care center. She is scheduled for a vascular evaluation with angioplasty on 09/11/[address] Rojas. On examination, the patient has a left lateral mid foot wound extending to the plantar surface, measuring 2.5 cm x 2.3 cm. No deep structures are seen, and the wound depth is 0.2 cm. TREATMENT AT THIS TIME: Clean wound with Vashe wound cleanser for 10 minutes. Irrigate the wound with saline. Apply Hydrofera Blue Classic cut to the size of the wound, moistened with saline and wrung out, placing it into the wound itself. This should be covered with an Xtrasorb dressing. Heel-float boot is recommended. When discharged, please notify the clinic, and the patient will be returned to followup scheduling. I was told that the diarrhea has subsided. Clostridium (C) difficile is always a concern but with return to normal of bowel habits this seems less likely.. MTDD
[2020-08-29] MEDS ORDERED: DARBEPOETIN 200MCG/0.4ML *DIALYSIS* SYRINGE (J0882 PER 1MCG) IV SCH (20:20)
[2020-08-29] MEDS: PANTOPRAZOLE 40MG TAB (PROTONIX) PO SCH (20:58)
[2020-08-29] MEDS: ESCITALOPRAM OXALATE 10 MG TAB (LEXAPRO) PO SCH (20:58)
--- NOTE | 2020-08-29 21:00 | IPN ---
NEPHROLOGY PROGRESS NOTE DATE: 08/29/2020 SUBJECTIVE: Patient was seen and examined at the bedside today morning. She is afebrile and hemodynamically stable. She was dialyzed yesterday and she tolerated the hemodialysis procedure well; 3 liters of fluid was removed. She also went for a right-sided thoracentesis today morning, and she got 800 mL of fluid removed. She reports that her breathing is better now. OBJECTIVE: VITAL SIGNS: Temperature 96.7 degrees Fahrenheit, blood pressure 160/62, pulse 55, respiratory rate 18, saturating 100% on room air. INTAKE/OUTPUT: Urine output is not recorded. Ultrafiltration with hemodialysis was 3 liters. Weight in the bed scale is 68.1 kg. PHYSICAL EXAMINATION: GENERAL: Patient is awake, alert and oriented x3, lying in bed, in no apparent distress. HEAD/NECK: Extraocular muscles intact. Pupils equally round and reactive to light. Mucous membranes are moist. Neck is supple. There is no JVD. CVS: S1, S2, regular rate. Trace edema of the bilateral lower extremities. RESPIRATORY: Mildly decreased breath sounds at the bases. Mild inspiratory crackles on the right base. ABDOMEN: Soft, positive bowel sounds, nontender. No organomegaly. Old surgical scars are noted. MUSCULOSKELETAL: She has muscle wasting in the lower extremities. 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 Power is 5/5 in all extremities. LABORATORY REVIEW: CBC showed WBC 4.1, hemoglobin 10.5, platelets 83,000. BMP showed sodium 132, potassium 4.2, chloride 97, bicarb 26, BUN 29, creatinine 2.9, calcium 8.6. MICROBIOLOGY: No cultures are available at this time. IMAGING: Right-sided thoracentesis was done, and 800 mL of fluid was removed. Repeat x-ray shows improved aeration in the right base. CURRENT INPATIENT MEDICATIONS: Patient's medications were all reviewed by myself. No other significant change in the medications today as compared with yesterday. ASSESSMENT AND PLAN: 1. End-stage renal disease: Patient was dialyzed yesterday, next hemodialysis will be done tomorrow morning. 2. Anemia and end-stage renal disease: Hemoglobin level is dropping now, she will be started on Aranesp with dialysis. 3. Right-sided pleural effusion: Patient got a thoracentesis done today. She will be started on incentive spirometry. 4. Hypertension: It is controlled with current regimen including Hydralazine and Losartan. 5. Chronic kidney disease/mineral bone disease: Continue current dose of Renvela with meals.
[2020-08-29] MEDS: LEVEMIR (INSULIN DETEMIR) 1 UNITS/0.01ML SC SCH (21:57)
[2020-08-30] VITALS: BP 124/58
[2020-08-30 04:00] VITALS: BP 136/58
[2020-08-30 05:00] LABS: HEMATOCRIT 34.5 % (36.0-47.0); MEAN CORPUSCULAR HEMOGLOBIN 33.8 pg (27.0-33.0); MEAN CORPUSCULAR HGB CONC 31.9 g/dl (32.0-36.5); MEAN CORPUSCULAR VOLUME 106.2 fl (80.0-96.0); RED BLOOD COUNT 3.25 10^6/uL (4.00-5.40)
[2020-08-30 05:01] LABS: PLATELET COUNT, AUTOMATED 89 10^3/uL (150-450)
[2020-08-30 05:26] LABS: ACETONE/KETONE 0.78 MG/DL (<2.81); ALBUMIN 2.7 GM/DL (3.2-5.2); CALCIUM LEVEL 8.6 MG/DL (8.5-10.1); CREATININE FOR GFR 4.29 MG/DL (0.55-1.30); PHOSPHORUS LEVEL 4.9 MG/DL (2.5-4.9); POTASSIUM SERUM 4.5 MEQ/L (3.5-5.1)
[2020-08-30] MEDS ORDERED: LIDOCAINE 1% SDV 5ML VIAL SC PRN (06:00)
[2020-08-30] MEDS: HumaLOG INSULIN (NovoLOG) PER UNIT SC SCH ×4 (07:30→20:58)
[2020-08-30] MEDS: (RENVELA) SEVELAMER **CARBONate** 800 MG TAB PO SCH ×3 (07:42→18:12)
[2020-08-30] MEDS: CARBAMIDE PEROXIDE 6.5% OTIC SOLN 15ML AU SCH ×2 (07:43→21:19)
[2020-08-30 08:00] VITALS: BP 133/61
[2020-08-30] MEDS: **hydrALAZINE** 10 MG TAB PO SCH ×2 (09:00→21:19)
[2020-08-30] MEDS: LOSARTAN 50MG TABLET PO SCH (09:00)
[2020-08-30] MEDS: HEPARIN SOD (PORCINE) 5000UNITS/ML 1ML VIAL/SYRINGE SC SCH ×2 (09:00→21:18)
--- NOTE | 2020-08-30 12:45 | IPN ---
PROGRESS NOTE DATE: 08/30/2020 SUBJECTIVE: The patient was seen and examined at the bedside today morning during hemodialysis procedure. She is tolerating the hemodialysis procedure well. She denies any active complaints at this time. OBJECTIVE: VITAL SIGNS: Temperature 98.3 degrees Fahrenheit, blood pressure 133/61, pulse 71, respiratory rate 16, saturating 93% on room air. INTAKE/OUTPUT: There is no urine output recorded. Weight on the bed scale is 67.1 kg. GENERAL: The patient is awake, alert, and oriented x3. Lying in bed in no apparent distress. HEAD/NECK: Extraocular muscles intact. Pupils equal, round, reactive to light. She has bilateral pseudophakia. Mucous membranes are moist. Neck is supple. There is no JVD. CARDIOVASCULAR: S1, S2. Regular rate. Trace edema of the bilateral lower extremities. RESPIRATORY: Mildly decreased breath sounds at the bases with no active rales or rhonchi. ABDOMEN: Soft with positive bowel sounds and nontender. No organomegaly. MUSCULOSKELETAL: Trace edema of the bilateral lower extremities. TRAFFIC AND TRANSPORT PLANNER: No focal deficits. Power is 5/5 in all extremities. LABORATORY REVIEW: CBC showed WBC of 5, hemoglobin 11, platelets 89,000. BMP showed sodium 133, potassium 4.5, chloride 100, bicarb 25, BUN 53, creatinine 4.2. Albumin is 2.7. CURRENT INPATIENT MEDICATIONS: The patient's medications were all reviewed by myself. No significant change in the medications today as compared with yesterday. ASSESSMENT AND PLAN: 1. End-stage renal disease. The patient is being dialyzed at this time. Ultrafiltration goal will be around 3 to 4 kg as tolerated by her blood pressure. 2. Anemia and end-stage renal disease. Hemoglobin level is above 11 now. Aranesp dose will be held. 3. Congestive heart failure and right-sided pleural effusion. The patient is status post right-sided pleurocentesis. Continue fluid restriction. The rest of the fluid status is being optimized for dialysis. 4. Hypertension. Blood pressure is controlled with her losartan, hydralazine, and hemodialysis. 5. Insulin-dependent diabetes. Her beta-hydroxybutyrate acid is within the normal range. Ketoacidosis has resolved now.
--- NOTE | 2020-08-30 15:23 | IPNPDOC ---
Subjective Date Seen The patient was seen on 08/30/20. Subjective Chief Complaint/HPI Mrs. Nye is a 44 year old female with ESRD on dialysis and type 1 DM who presents with generalized weakness and diarrhea and found to have hyperkalemia, hypertensive urgency, and fluid overload from missed dialysis. She was seen at dialysis late morning. Denies any chest pain or dyspnea. Patient will most likely need rehab. Objective Physical Examination General Exam: Positive: Alert, Cooperative Chest Exam: Positive: Clear to auscultation Heart Exam: Positive: Rate Normal, Regular Rhythm Abdomen Exam: Positive: Normal bowel sounds, Soft Extremity Exam: Positive: Edema, Other (Chronic left foot wound, erythema of right distal lower leg erythema with some excoriation) Neuro Exam: Positive: Normal Speech Psych Exam: Positive: Mental status NL Assessment /Plan Assessment Mrs. Nye is a 44 year old female with ESRD on dialysis and type 1 DM who presents with generalized weakness and diarrhea and found to have hyperkalemia, hypertensive urgency, and fluid overload from missed dialysis. Nephrology consulted, recommendations appreciated. Patient has elevated ketones, but with no gap or acidosis. Switched NPH insulin to Levemir yesterday. Monitor glucose. Plan/VTE VTE Prophylaxis Ordered?: Yes Plan 1. Fluid overload -2/2 missed dialysis -Nephrology consulted recommendations appreciated -Patient on dialysis T,Th,Sat 2. Severe Hyperkalemia -Patient had emergent dialysis on admission -2/2 missed dialysis -Patient had dialysis and potassium is at goal 3. Hypertension -2/2 missed dialysis -Patient had dialysis and blood pressure is better controlled -Continue losartan and hydralazine 4. Nausea/vomiting/diarrhea -Resolved -Start Protonix for dyspepsia 5. Right sided pleural effusion -Ordered for thoracentesis tomorrow. Hold morning dose of heparin 6. Anxiety/depression -Continue escitalopram 7. Diabetes mellitus -Continue sliding scale insulin -Will switch from NPH to Levemir to see if we have more consistent insulin coverage. NPH being held at 1730 due to low glucose, but glucose becomes elevated at 2100. 8. Ketosis -Elevated ketones -Switched NPH insulin to Levemir. Better glucose control -Monitor blood glucose on Levemir 9. DVT ppx -Heparin subQ Disposition: Patient is medically stable. Will need rehab VS, I&O, 24H, Fishbone Vital Signs/I&O Vital Signs Date Time Temp Pulse Resp B/P (MAP) Pulse Ox O2 Delivery O2 Flow Rate FiO2 08/30/20 08:00 98.3 71 16 133/61 (85) 93 Room Air I&O- Last 24 Hours up to 6 AM 08/30/20 06:00 Intake Total 1320 ml Balance 1320 ml Laboratory Data 24H LABS Laboratory Tests 2 08/29/20 16:57: Bedside Glucose (Misc Panel) 92 08/29/20 20:42: Bedside Glucose (Misc Panel) 126H 08/30/20 04:40: Nucleated Red Blood Cells % (auto) 0.0, Anion Gap 8, Glomerular Filtration Rate 12.0L, Calcium Level 8.6, Phosphorus Level 4.9, Albumin 2.7L, B-Hydroxybutyrate 0.78 08/30/20 13:35: Bedside Glucose (Misc Panel) 133H CBC/BMP Laboratory Tests 08/30/20 04:40 Microbiology Microbiology 08/29/20 Gram Stain - Final, Resulted 08/29/20 Anaerobic Culture, Resulted Pending 08/29/20 Body Fluid Culture, Received Pending SOMMER LANGFORD DO Aug 30, 2020 15:23
[2020-08-30 16:00] VITALS: BP 120/59
[2020-08-30 20:00] VITALS: BP 133/60
[2020-08-30] MEDS: LEVEMIR (INSULIN DETEMIR) 1 UNITS/0.01ML SC SCH (21:18)
[2020-08-30] MEDS: ESCITALOPRAM OXALATE 10 MG TAB (LEXAPRO) PO SCH (21:19)
[2020-08-30] MEDS: PANTOPRAZOLE 40MG TAB (PROTONIX) PO SCH (21:19)
[2020-08-31] VITALS: BP 135/62
[2020-08-31 04:00] VITALS: BP 136/62
[2020-08-31 05:20] LABS: HEMATOCRIT 32.6 % (36.0-47.0); HEMOGLOBIN 10.6 g/dl (12.0-15.5); MEAN CORPUSCULAR HEMOGLOBIN 34.6 pg (27.0-33.0); MEAN CORPUSCULAR HGB CONC 32.5 g/dl (32.0-36.5); MEAN CORPUSCULAR VOLUME 106.5 fl (80.0-96.0); RED BLOOD COUNT 3.06 10^6/uL (4.00-5.40)
[2020-08-31 05:24] LABS: PLATELET COUNT, AUTOMATED 87 10^3/uL (150-450)
[2020-08-31 05:53] LABS: ALBUMIN 2.6 GM/DL (3.2-5.2); CALCIUM LEVEL 8.7 MG/DL (8.5-10.1); CREATININE FOR GFR 3.4 MG/DL (0.55-1.30); GLOMERULAR FILTRATION RATE 15.7 (>58); PHOSPHORUS LEVEL 3.6 MG/DL (2.5-4.9)
[2020-08-31 08:00] VITALS: BP 142/70
[2020-08-31] MEDS: HEPARIN SOD (PORCINE) 5000UNITS/ML 1ML VIAL/SYRINGE SC SCH ×2 (08:02→22:58)
[2020-08-31] MEDS: HumaLOG INSULIN (NovoLOG) PER UNIT SC SCH ×4 (08:03→21:40)
[2020-08-31] MEDS: LOSARTAN 50MG TABLET PO SCH (08:03)
[2020-08-31] MEDS: (RENVELA) SEVELAMER **CARBONate** 800 MG TAB PO SCH ×3 (08:03→17:41)
[2020-08-31] MEDS: CARBAMIDE PEROXIDE 6.5% OTIC SOLN 15ML AU SCH ×2 (08:04→21:41)
[2020-08-31] MEDS: **hydrALAZINE** 10 MG TAB PO SCH ×2 (08:04→21:39)
--- NOTE | 2020-08-31 10:58 | IPNPDOC ---
Subjective Date Seen The patient was seen on 08/31/20. Subjective Chief Complaint/HPI Mrs. Nye is a 44 year old female with ESRD on dialysis and type 1 DM who presents with generalized weakness and diarrhea and found to have hyperkalemia, hypertensive urgency, and fluid overload from missed dialysis. This morning, she was feeling better and stronger. She wanted to try to be cleared by physical therapy. Physical therapy evaluated the patient and patient will still need rehab. Objective Physical Examination General Exam: Positive: Alert, Cooperative Chest Exam: Positive: Clear to auscultation Heart Exam: Positive: Rate Normal, Regular Rhythm Abdomen Exam: Positive: Normal bowel sounds, Soft Extremity Exam: Positive: Edema, Other (Chronic left foot wound, erythema of right distal lower leg erythema with some excoriation) Neuro Exam: Positive: Normal Speech Psych Exam: Positive: Mental status NL Assessment /Plan Assessment Mrs. Nye is a 44 year old female with ESRD on dialysis and type 1 DM who presents with generalized weakness and diarrhea and found to have hyperkalemia, hypertensive urgency, and fluid overload from missed dialysis. Nephrology consulted, recommendations appreciated. Patient has elevated ketones, but with no gap or acidosis. Switched NPH insulin to Levemir and monitoring glucose. Plan/VTE VTE Prophylaxis Ordered?: Yes Plan 1. Fluid overload -2/2 missed dialysis -Nephrology consulted recommendations appreciated -Patient on dialysis T,Th,Sat 2. Severe Hyperkalemia -Patient had emergent dialysis on admission -2/2 missed dialysis -Patient had dialysis and potassium is at goal 3. Hypertension -2/2 missed dialysis -Patient had dialysis and blood pressure is better controlled -Continue losartan and hydralazine 4. Nausea/vomiting/diarrhea -Resolved -Start Protonix for dyspepsia 5. Right sided pleural effusion -Ordered for thoracentesis tomorrow. Hold morning dose of heparin 6. Anxiety/depression -Continue escitalopram 7. Diabetes mellitus -Continue sliding scale insulin -Will switch from NPH to Levemir to see if we have more consistent insulin coverage. NPH being held at 1730 due to low glucose, but glucose becomes elevated at 2100. 8. Ketosis -Elevated ketones -Switched NPH insulin to Levemir. Better glucose control -Monitor blood glucose on Levemir 9. DVT ppx -Heparin subQ Disposition: Patient is medically stable. Will need rehab. Patient may be ARU candidate. VS, I&O, 24H, Fishbone Vital Signs/I&O Vital Signs Date Time Temp Pulse Resp B/P (MAP) Pulse Ox O2 Delivery O2 Flow Rate FiO2 08/31/20 08:03 142/79 08/31/20 08:00 98.2 70 18 95 Room Air I&O- Last 24 Hours up to 6 AM 08/31/20 06:00 Intake Total 840 ml Output Total 3500 ml Balance -2660 ml Laboratory Data 24H LABS Laboratory Tests 2 08/30/20 13:35: Bedside Glucose (Misc Panel) 133H 08/30/20 17:47: Bedside Glucose (Misc Panel) 173H 08/31/20 04:48: Nucleated Red Blood Cells % (auto) 0.0, Immature Platelet Fraction 4.8, Anion Gap 11, Glomerular Filtration Rate 15.7L, Calcium Level 8.7, Phosphorus Level 3.6#, Albumin 2.6L 08/31/20 07:34: Bedside Glucose (Misc Panel) 169H CBC/BMP Laboratory Tests 08/31/20 04:48 Microbiology Microbiology 08/29/20 Gram Stain - Final, Complete 08/29/20 Anaerobic Culture - Final, Complete 08/29/20 Body Fluid Culture - Final, Complete SOMMER LANGFORD DO Aug 31, 2020 10:58
[2020-08-31] MEDS: PATIROMER SORBITEX CALCIUM 8.4 GM POWDER PACKET (VELTASSA) PO SCH (16:18)
[2020-08-31 16:52] VITALS: BP 197/89
[2020-08-31] MEDS ORDERED: **hydrALAZINE HCL** 25 MG TAB PO ONE (17:15)
[2020-08-31] MEDS ORDERED: LEVEMIR (INSULIN DETEMIR) 1 UNITS/0.01ML SC SCH (21:00)
[2020-08-31] MEDS: PANTOPRAZOLE 40MG TAB (PROTONIX) PO SCH (21:37)
[2020-08-31] MEDS: ESCITALOPRAM OXALATE 10 MG TAB (LEXAPRO) PO SCH (21:37)
[2020-08-31 22:00] VITALS: BP 159/80
[2020-08-31 23:38] VITALS: BP 152/56
[2020-09-01 06:00] VITALS: BP 164/68
[2020-09-01 06:33] LABS: HEMOGLOBIN 10.6 g/dl (12.0-15.5); MEAN CORPUSCULAR HGB CONC 32.1 g/dl (32.0-36.5); MEAN CORPUSCULAR VOLUME 105.8 fl (80.0-96.0); PLATELET COUNT, AUTOMATED 119 10^3/uL (150-450); RED BLOOD COUNT 3.12 10^6/uL (4.00-5.40); WHITE BLOOD COUNT 5.3 10^3/uL (4.0-10.0)
[2020-09-01 07:13] LABS: ALBUMIN 2.9 GM/DL (3.2-5.2); CALCIUM LEVEL 8.6 MG/DL (8.5-10.1); CREATININE FOR GFR 4.84 MG/DL (0.55-1.30); GLOMERULAR FILTRATION RATE 10.4 (>58); POTASSIUM SERUM 4.3 MEQ/L (3.5-5.1)
[2020-09-01] MEDS: HEPARIN SOD (PORCINE) 5000UNITS/ML 1ML VIAL/SYRINGE SC SCH ×3 (09:00→21:55)
[2020-09-01] MEDS: (RENVELA) SEVELAMER **CARBONate** 800 MG TAB PO SCH ×3 (09:03→17:20)
[2020-09-01] MEDS: LOSARTAN 50MG TABLET PO SCH (09:04)
[2020-09-01] MEDS: HumaLOG INSULIN (NovoLOG) PER UNIT SC SCH ×4 (09:04→21:00)
[2020-09-01] MEDS: CARBAMIDE PEROXIDE 6.5% OTIC SOLN 15ML AU SCH ×2 (09:05→21:56)
[2020-09-01] MEDS: **hydrALAZINE** 10 MG TAB PO SCH ×2 (09:05→21:56)
--- NOTE | 2020-09-01 10:48 | IPNPDOC ---
Subjective Date Seen The patient was seen on 09/01/20. Subjective Chief Complaint/HPI Mrs. Nye is a 44 year old female with ESRD on dialysis and type 1 DM who presents with generalized weakness and diarrhea and found to have hyperkalemia, hypertensive urgency, and fluid overload from missed dialysis. This morning, she denies any chest pain or dyspnea. Currently pending ARU screen Objective Physical Examination General Exam: Positive: Alert, Cooperative Chest Exam: Positive: Clear to auscultation Heart Exam: Positive: Rate Normal, Regular Rhythm Abdomen Exam: Positive: Normal bowel sounds, Soft Extremity Exam: Positive: Edema, Other (Chronic left foot wound, erythema of right distal lower leg erythema with some excoriation) Neuro Exam: Positive: Normal Speech Psych Exam: Positive: Mental status NL Assessment /Plan Assessment Mrs. Nye is a 44 year old female with ESRD on dialysis and type 1 DM who presen ts with generalized weakness and diarrhea and found to have hyperkalemia, hypertensive urgency, and fluid overload from missed dialysis. Nephrology consulted, recommendations appreciated. Patient has elevated ketones, but with no gap or acidosis. Switched NPH insulin to Levemir and monitoring glucose. Plan/VTE VTE Prophylaxis Ordered?: Yes Plan 1. Fluid overload -2/2 missed dialysis -Nephrology consulted recommendations appreciated -Patient on dialysis T,Th,Sat 2. Severe Hyperkalemia -Patient had emergent dialysis on admission -2/2 missed dialysis -Patient had dialysis and potassium is at goal 3. Hypertension -2/2 missed dialysis -Patient had dialysis and blood pressure is better controlled -Continue losartan and hydralazine 4. Nausea/vomiting/diarrhea -Resolved -Start Protonix for dyspepsia 5. Right sided pleural effusion -Ordered for thoracentesis tomorrow. Hold morning dose of heparin 6. Anxiety/depression -Continue escitalopram 7. Diabetes mellitus -Continue sliding scale insulin -Will switch from NPH to Levemir to see if we have more consistent insulin coverage. NPH being held at 1730 due to low glucose, but glucose becomes elevated at 2100. 8. Ketosis -Elevated ketones -Switched NPH insulin to Levemir. Better glucose control -Monitor blood glucose on Levemir 9. DVT ppx -Heparin subQ Disposition: Patient is medically stable. Will need rehab. ARU screen has been ordered VS, I&O, 24H, Fishbone Vital Signs/I&O Vital Signs Date Time Temp Pulse Resp B/P (MAP) Pulse Ox O2 Delivery O2 Flow Rate FiO2 09/01/20 09:04 164/68 09/01/20 06:00 97.4 74 18 95 Room Air I&O- Last 24 Hours up to 6 AM 09/01/20 06:00 Intake Total 1110 ml Output Total 0 ml Balance 1110 ml Laboratory Data 24H LABS Laboratory Tests 2 08/31/20 12:35: Bedside Glucose (Misc Panel) 106H 08/31/20 16:36: Bedside Glucose (Misc Panel) 370H 08/31/20 20:01: Bedside Glucose (Misc Panel) 417H 09/01/20 05:40: Nucleated Red Blood Cells % (auto) 0.0, Anion Gap 13, Glomerular Filtration Rate 10.4L, Calcium Level 8.6, Phosphorus Level 4.0, Albumin 2.9L 09/01/20 05:50: Bedside Glucose (Misc Panel) 52L 09/01/20 06:11: Bedside Glucose (Misc Panel) 56L 09/01/20 06:32: Bedside Glucose (Misc Panel) 64L 09/01/20 06:54: Bedside Glucose (Misc Panel) 136H CBC/BMP Laboratory Tests 09/01/20 05:40 Microbiology Microbiology 08/29/20 Gram Stain - Final, Complete 08/29/20 Anaerobic Culture - Final, Complete 08/29/20 Body Fluid Culture - Final, Complete SOMMER LANGFORD DO Sep 01, 2020 10:48
--- NOTE | 2020-09-01 12:49 | IPN ---
NEPHROLOGY PROGRESS NOTE DATE: 09/01/2020 SUBJECTIVE: Italia is seen and examined this morning at the bedside working with the physical therapist. She denies any complaints. No dyspnea. She is pending acute rehabilitation unit screen. I offered her an extra dialysis treatment today, but the patient declined. OBJECTIVE: VITAL SIGNS: Temperature 97.4, pulse 74, respiratory rate 18, blood pressure 164/68, saturating 95% on room air. INTAKE AND OUTPUT: Intake yesterday was 800. Weight in the bed scale today was not recorded. GENERAL: Patient is seen sitting in the chair, awake, alert, oriented, comfortable, in no apparent distress. HEENT: Extraocular muscles are intact. Tongue is moist. Neck is supple. There is no jugular venous distention while she is sitting upright. HEART: Sounds are regular. S1, S2. There is trace edema of the bilateral lower extremities. LUNGS: Show clearer breath sounds on the left as compared to the right. There is no accessory muscle use. There is no tachypnea. She is comfortable on room air. ABDOMEN: Soft and nontender. EXTREMITIES: There is a fistula in the left arm, which is patent with thrill and bruit. Her legs have chronic hard trace edema. NEUROLOGIC: She is oriented times three and cooperative with physical examination, at baseline mentation. LABORATORY DATA: White count 5.3, hemoglobin 10.6, platelets 119. Sodium 143, potassium 4.3, bicarbonate 24. INPATIENT MEDICATIONS: Reviewed by myself. I know her insulin was adjusted by the primary service. The remainder of the medications are unchanged as compared to yesterday. PROBLEMS: 1. End-stage renal disease on hemodialysis on a Tuesday, , Tuesday schedule. Her next dialysis will be on Tuesday with a goal fluid removal of 3-4 liters as tolerated by her hemodynamics. Her electrolytes and volume status are acceptable. Her fistula is in good use. 2. Hyperkalemia. It is managed with dialysis, renal diet and with Veltassa. The patient does not follow a renal diet when she is home. 3. Hypertension. Blood pressures are uncontrolled this morning, but I made no changes to the antihypertensive regimen. We will see how she does after receiving her medications. 4. Anemia of chronic renal failure. She continues on Aranesp and hemoglobin is at goal. 5. Recent fluid overload along with chronic right-sided pleural effusion. She had a right-sided thoracentesis on August 29, 2020, with 800 mL drained. She continues on her chronic maintenance dialysis on Tuesday, , Tuesday schedule and I am adding an 1800 mL fluid restriction to her diet order.
[2020-09-01 14:00] VITALS: BP 169/79
--- NOTE | 2020-09-01 15:32 | IPN ---
PROGRESS NOTE DATE: 08/31/2020 SUBJECTIVE: The patient was seen and examined at the bedside today morning. She is afebrile, hemodynamically stable. She is being screened for ARU because she failed a physical therapy (PT) evaluation for discharge home. She otherwise denies any active complaints. She was dialyzed yesterday, 3.5 liters were removed and she tolerated it well. OBJECTIVE: Vital signs:: Temperature 97.5 degrees Fahrenheit, blood pressure 159/80, pulse is 84, respiratory rate of 17, saturating 96% on room air. Intake and output: There is no urine output recorded. Ultrafiltration at hemodialysis was 3.5 liters. Weight in the bed scale is 65 kg. PHYSICAL EXAMINATION: The patient is alert, awake, oriented x3, lying in bed, in no acute distress. Head and neck examination: Extraocular muscles are intact. Pupils equally round and reactive to light. Mucous membranes are moist. Neck is supple. There is no jugular venous distention (JVD). Cardiovascular: S1, S2 regular rate. No edema of the bilateral lower extremities. Respiratory: Chest is clear to auscultation bilaterally. Bilateral equal air entry. No rales or rhonchi. Abdomen: Soft. Positive bowel sounds. Nontender, no organomegaly. Musculoskeletal: No edema of the extremities. There is muscle wasting in the lower extremities. WRAP TURNER: No focal deficit. Power is 5/5 in all extremities. LABORATORY DATA: Complete blood count (CBC) showed a WBC 4, hemoglobin 10.6, platelets 387. Basic metabolic panel (BMP) showed sodium 136, potassium 4, chloride 101, bicarbonate 24, BUN 36, creatinine is 3.4. Albumin is 2.9. CURRENT INPATIENT MEDICATIONS: All reviewed by myself. There is no significant change in the medications today as compared with yesterday, accept that her Levemir dose has been increased to 18 units daily. ASSESSMENT: 1. End-stage renal disease. The patient was dialyzed yesterday. She will be evaluated tomorrow morning for any need of hemodialysis. Otherwise, her regular schedule is Tuesday, , Tuesday. 2. Right-sided pleural effusion and congestive heart failure. Volume status is better. She was dialyzed yesterday 3.5 liters of fluid was removed. 3. Hypertension. Blood pressure is controlled with hydralazine and losartan. 4. Insulin dependent diabetes. The patient's Levemir dose has been increased. She is currently on insulin sliding scale as well. Glucose levels are within acceptable range. 5. Anemia and end-stage renal disease. Continue Aranesp 200 mcg IV with hemodialysis.
[2020-09-01] MEDS: PATIROMER SORBITEX CALCIUM 8.4 GM POWDER PACKET (VELTASSA) PO SCH (15:46)
[2020-09-01 16:48] VITALS: BP 136/64
[2020-09-01 20:31] VITALS: BP 142/78
[2020-09-01] MEDS ORDERED: LEVEMIR (INSULIN DETEMIR) 1 UNITS/0.01ML SC SCH (21:00)
[2020-09-01] MEDS: PANTOPRAZOLE 40MG TAB (PROTONIX) PO SCH (21:55)
[2020-09-01] MEDS: ESCITALOPRAM OXALATE 10 MG TAB (LEXAPRO) PO SCH (21:55)
[2020-09-02] MEDS: **hydrALAZINE** 10 MG TAB PO SCH (05:19)
[2020-09-02 05:20] VITALS: BP 150/70
[2020-09-02] MEDS: LOSARTAN 50MG TABLET PO SCH (05:20)
[2020-09-02 05:53] VITALS: BP 162/68
[2020-09-02 05:59] LABS: HEMATOCRIT 31.2 % (36.0-47.0); HEMOGLOBIN 10.2 g/dl (12.0-15.5); MEAN CORPUSCULAR HEMOGLOBIN 34.5 pg (27.0-33.0); MEAN CORPUSCULAR HGB CONC 32.7 g/dl (32.0-36.5); MEAN CORPUSCULAR VOLUME 105.4 fl (80.0-96.0); PLATELET COUNT, AUTOMATED 115 10^3/uL (150-450); RED BLOOD COUNT 2.96 10^6/uL (4.00-5.40); WHITE BLOOD COUNT 4.4 10^3/uL (4.0-10.0)
[2020-09-02 06:18] LABS: ALBUMIN 2.7 GM/DL (3.2-5.2); CALCIUM LEVEL 8.8 MG/DL (8.5-10.1); CREATININE FOR GFR 6.22 MG/DL (0.55-1.30); GLOMERULAR FILTRATION RATE 7.8 (>58); PHOSPHORUS LEVEL 5.8 MG/DL (2.5-4.9); POTASSIUM SERUM 5.2 MEQ/L (3.5-5.1)
[2020-09-02] MEDS ORDERED: SODIUM CHLORIDE 0.9% 1000ML IV PRN (07:00)
[2020-09-02] MEDS ORDERED: LIDOCAINE 1% SDV 5ML VIAL SC PRN (07:00)
[2020-09-02] MEDS: (RENVELA) SEVELAMER **CARBONate** 800 MG TAB PO SCH ×2 (08:00→12:30)
[2020-09-02] MEDS: HEPARIN SOD (PORCINE) 5000UNITS/ML 1ML VIAL/SYRINGE SC SCH (08:25)
[2020-09-02] MEDS: HumaLOG INSULIN (NovoLOG) PER UNIT SC SCH ×2 (08:26→12:00)
[2020-09-02 14:00] VITALS: BP 164/68
[2020-09-02] MEDS ORDERED: PANT40TA29 PO (14:03)
[2020-09-02] MEDS ORDERED: INSUDET SC (14:03)
[2020-09-02] MEDS ORDERED: ARAN200I3 IV (14:03)
--- NOTE | 2020-09-02 17:15 | IPN ---
NEPHROLOGY PROGRESS NOTE DATE: 09/02/2020 SUBJECTIVE: Italia is seen and examined this morning in the Hemodialysis Unit receiving her treatment. She denies any complaints, specifically no shortness of breath with physical therapy. No nausea, vomiting, diarrhea. Dialysis has been uneventful. We are removing 3.5 liters today. OBJECTIVE: VITAL SIGNS: Temperature 97.4, pulse 87, respiratory rate 18, blood pressure 164/68, saturating 98% on room air. Goal dialysis fluid removal today is 3.5 liters. GENERAL APPEARANCE: The patient is seen awake, alert, oriented, comfortable, receiving her treatment, in no distress. HEENT: The extraocular muscles are intact. Tongue is moist. NECK: Supple. Jugular veins are mildly elevated. HEART: Regular. S1, S2. There is trace hard edema of the legs. LUNGS: Symmetric air entry with some diminished breath sounds on the right base. There is no accessory muscle use. There is no tachypnea. She is comfortable on room air. ABDOMEN: Soft and nontender. EXTREMITIES: There is a fistula in the left arm which is presently in use. NEUROLOGICAL: She is oriented x3, cooperative with physical exam and at baseline mentation. LABORATORY STUDIES: Today white count of 4.4, hemoglobin 10.2, platelet count 115. Sodium 133, potassium 5.2, BUN 106, phosphorous 5.8. CURRENT INPATIENT MEDICATIONS: The patient's medications were reviewed by myself. I note her insulin was adjusted by the Primary Service yesterday. The remainder of medications are unchanged compared to prior. PROBLEMS: 1. End-stage renal disease, on hemodialysis on a Tuesday, , Tuesday schedule - The patient was dialyzed today with a goal fluid removal of 3.5 liters. She is tolerating her treatment without any issue. If she needs to stay for acute rehabilitation, I will try to arrange for an extra treatment to further optimize her volume status. 2. Hyperkalemia it is managed with dialysis, renal diet and Veltassa. She does not follow a renal diet when she is at home. She was dialyzed with a 2.0 mEq dialysis bath today. 3. Anemia of chronic renal failure she continues on Aranesp and hemoglobin is at goal. 4. Hypervolemic hyponatremia - The patient continues on a fluid restriction of 1.8 liters, a renal diet and dialysis with fluid removal. 5. Secondary hyperparathyroidism her phosphorous is slightly above goal. She continues on Renvela, vitamin D and I will also start her back on Sensipar which she usually receives three times a week with dialysis. 6. Hypertension - blood pressures remain on the high side and I plan to take her for an additional treatment on Tuesday, September 03 if the dialysis schedule allows. I also note that her blood urea nitrogen has crept up above 100, and I think she will benefit from an extra treatment. MTDD
--- NOTE | 2020-09-02 23:01 | DS.PDOC ---
Discharge Summary General Date of Admission Aug 28, 2020 at 09:23 Date of Discharge Sep 02, 2020 Discharge Summary PROCEDURES PERFORMED DURING STAY: None ADMITTING DIAGNOSES: 1. Fluid overload 2. Severe Hyperkalemia 3. Hypertensive urgency 4. Nausea/vomiting/diarrhea 5. Right sided pleural effusion 6. Anxiety/depression 7. Diabetes mellitus DISCHARGE DIAGNOSES: 1. Fluid overload 2. Severe Hyperkalemia 3. Hypertensive urgency 4. Nausea/vomiting/diarrhea 5. Right sided pleural effusion, transudative effusion 6. Anxiety/depression 7. Diabetes mellitus COMPLICATIONS/CHIEF COMPLAINT: Diarrhea, Hyperkalemia. HISTORY OF PRESENT ILLNESS: Copied from admitting attending's H&P " Patient is 44 years old female with past medical history of end-stage renal disease on hemodialysis, type 1 diabetes who presents with fatigue, generalized weakness and diarrhea. Patient stated that for past few days she has been having multiple bowel movements. She denies any fever or chills. She reported nausea and loss of appetite. Today she is supposed to have dialysis but because of generalized weakness she did not go for dialysis. In the ER patient was found to have systolic blood pressure of 212, white blood count of 11.6, sodium level of 129, potassium 8. CT abdomen pelvis showed Moderate abdominal and pe lvic ascites, similar to prior study. Large right pleural effusion, stable. Patient received in ER Kayexalate, D50 with IV insulin. EKG showed sinus rhythm, no peak T waves " HOSPITAL COURSE: Patient's fluid overload, hyperkalemia, and hypertensive emergency improved with dialysis. Patient has large right pleural effusion which was drained. Cultures and pathology was negative. Pleural effusion was transudative. Patient also had ketosis without acidosis which was improved with dialysis and insulin. We had difficulty controlling patient's blood sugar with NPH insulin. Patient was switched to Levemir and did better. As patient's ketosis and fluid overload resolved, patient started to feel better. She felt strong enough return to normal activity, but she did not pass physical therapy. PT felt that she would benefit from ARU. Patient was transferred to the ARU today. DISCHARGE MEDICATIONS: Please see below. ALLERGIES: Please see below. PHYSICAL EXAMINATION ON DISCHARGE: VITAL SIGNS: Please see below. GENERAL: Comfortable, in no apparent distress. HEENT: Head normocephalic/atraumatic, EOMI, sclera clear. NECK: Supple. RESPIRATORY: Lungs clear to auscultation bilaterally, no rales, wheeze or rhonchi. CARDIOVASCULAR: Regular rate and rhythm. ABDOMEN: Soft, nontender, no guarding or rebound tenderness. Normal bowel sounds. MUSCLE SKELETAL: Bilateral pitting edema NEUROLOGICAL: CN 312 grossly intact, no focal deficits noted. PSYCHOLOGICAL: Normal mood and affect LABORATORY DATA: Please see below. IMAGING: Radiologist interpretation CT abd/pelvis without contrast 1. Cholelithiasis. 2. Moderate abdominal and pelvic ascites, similar to prior study. 3. Large right pleural effusion, stable. 4. Coronary atherosclerosis. 5. Chronic calcific pericarditis. CXR Moderate right pleural effusion with underlying airspace disease and atelectasis as well as suspicion for rounded mass. PROGNOSIS: Good ACTIVITY: As tolerated. DIET: Renal diet and carbohydrate consistent diet DISCHARGE PLAN: ARU DISPOSITION: 62 D/T Rehab Facility. DISCHARGE INSTRUCTIONS: 1. Follow up with PCP on discharge from ARU 2. Keep regular appointments with nephrology DISCHARGE CONDITION: Stable Total time spent on discharge planning, discharge summary, and medication reconciliation: 55 minutes. Vital Signs/I&Os Vital Signs Date Time Temp Pulse Resp B/P (MAP) Pulse Ox O2 Delivery O2 Flow Rate FiO2 09/02/20 14:00 97.4 87 18 164/68 (100) 98 Room Air I&O- Last 24 Hours up to 6 AM 09/02/20 06:00 Intake Total 660 ml Output Total 0 ml Balance 660 ml Laboratory Data Labs 24H Laboratory Tests 2 09/02/20 05:28: Nucleated Red Blood Cells % (auto) 0.0, Anion Gap 14, Glomerular Filtration Rate 7.8L, Calcium Level 8.8, Phosphorus Level 5.8#H, Albumin 2.7L 09/02/20 13:52: Bedside Glucose (Misc Panel) 45L 09/02/20 14:41: Bedside Glucose (Misc Panel) 90 CBC/BMP Laboratory Tests 09/02/20 05:28 FSBS Laboratory Tests Test 09/02/20 13:52 09/02/20 14:41 Range/Units Bedside Glucose (Misc Panel) 45 90 70-105 MG/DL Microbiology Microbiology 08/29/20 Gram Stain - Final, Complete 08/29/20 Anaerobic Culture - Final, Complete 08/29/20 Body Fluid Culture - Final, Complete Discharge Medications Scheduled Darbepoetin Jung in Polysorbat (Aranesp) 200 Mcg/0.4 Ml Syringe, 200 MCG IV HD Ergocalciferol (Vitamin D2) (Vitamin D2) 50,000 Units Cap, 50,000 UNITS PO QWEEK, (Reported) WEDNESDAYS Escitalopram Oxalate (Lexapro) 10 Mg Tab, 10 MG PO QHS, (Reported) Hydralazine HCl (Hydralazine HCl) 10 Mg Tablet, 10 MG PO BID, (Reported) Insulin Detemir (Levemir) 100 Unit/1 Ml Vial, 16 UNITS SC QHS Insulin Human Lispro (Humalog) 100 Unit/1 Ml Vial, 1 DOSE SC ACHS, (Reported) PER SLIDING SCALE Losartan Potassium (Losartan Potassium) 100 Mg Tablet, 100 MG PO DAILY, (Reported) Pantoprazole Sodium (Pantoprazole Sodium) 40 Mg Tablet.dr, 40 MG PO QHS Patiromer Calcium Sorbitex (Veltassa) 8.4 Gm Pow, 8.4 GM PO 4XWK, (Reported) TUESDAY, TUESDAY, TUESDAY AND TUESDAY (NON-DIALYSIS DAYS) Sevelamer Carbonate (Renvela) 800 Mg Tablet, 1,600 MG PO WM, (Reported) Allergies Coded Allergies: vancomycin (Verified Adverse Reaction, Intermediate, Hallucinations, 06/10/20) SOMMER LANGFORD DO Sep 02, 2020 23:01
[2020-09-03] MEDS ORDERED: CINACALCET 30 MG TAB (SENSIPAR) PO SCH (09:00)
== END 2020-09-02 16:40 | DRG 186 ==
LOC: M ED 15:30 → EDBD 15:30 → M ED INP 15:31 → ENRESERV 21:39 → M PCU 08-27 00:47 → OBSVTOIN 08-28 09:23 → M MSPAV 08-31 16:55
PROVIDERS: ADMIT Internal Medicine; ATTEND Internal Medicine
PROC: 5A1D70Z Performance of Urinary Filtration, Intermittent, Less than 6 Hours Per Day (ICD-10-PCS; 2020-08-28)
PROC: 0B9N3ZZ Drainage of Right Pleura, Percutaneous Approach (ICD-10-PCS; principal; 2020-08-29 09:00)
DX: J90 Pleural effusion, not elsewhere classified (principal); N18.6 End stage renal disease; E87.1 Hypo-osmolality and hyponatremia; N25.81 Secondary hyperparathyroidism of renal origin; I12.0 Hypertensive chronic kidney disease with stage 5 chronic kidney disease or end stage renal disease; E87.5 Hyperkalemia; E10.621 Type 1 diabetes mellitus with foot ulcer; F41.9 Anxiety disorder, unspecified; F32.9 Major depressive disorder, single episode, unspecified; I16.0 Hypertensive urgency; Z79.4 Long term (current) use of insulin; Z79.899 Other long term (current) drug therapy; Z88.8 Allergy status to other drugs, medicaments and biological substances; D50.9 Iron deficiency anemia, unspecified; E78.5 Hyperlipidemia, unspecified; D63.1 Anemia in chronic kidney disease; Z91.14 Patient's other noncompliance with medication regimen; L97.519 Non-pressure chronic ulcer of other part of right foot with unspecified severity

== ENCOUNTER 2020-09-02 15:33 | Inpatient (IN) | payer MEDICARE, BC ==
[~2020-09-02] VITALS: Ht 157.5 cm; Wt 68.1 kg
[~2020-09-02 15:33] MED LIST changes: +ARAN200I3 IV; +HYDR10TAB PO; +INSUDET SC; +PANT40TA29 PO; +RENV2TAB PO
[2020-09-02 16:45] VITALS: BP 163/70
[2020-09-02] MEDS ORDERED: GLUCOSE 4GM CHEW TABLET PO PRN (17:45)
[2020-09-02] MEDS ORDERED: GLUCAGON INJ 1MG VIAL SC PRN (17:45)
[2020-09-02] MEDS ORDERED: DARBEPOETIN 200MCG/0.4ML *DIALYSIS* SYRINGE (J0882 PER 1MCG) IV SCH (17:45)
[2020-09-02] MEDS ORDERED: DEXTROSE 50% 50 ML SYRINGE IV PRN (17:45)
[2020-09-02] MEDS: (RENVELA) SEVELAMER **CARBONate** 800 MG TAB PO SCH (18:36)
[2020-09-02] MEDS ORDERED: ACETAMINOPHEN 325 MG TAB PO PRN (19:35)
[2020-09-02] MEDS ORDERED: ONDANSETRON 4 MG TAB PO PRN (19:35)
[2020-09-02 20:00] VITALS: BP 124/59
--- NOTE | 2020-09-02 20:37 | HPEPDOC ---
Chemist Internship Note DATE OF ADMISSION: 09/02/2020 DATE OF SERVICE: 09/02/2020 TIME OF ADMISSION: Please refer to physician's admission order. SOURCE OF ADMISSION INFORMATION: Medical Records and Patient ADMITTING DIAGNOSES: Type 1Diabetes CKD4. Diabetic foot ulcers left lateral foot, venous stasis ulcer, right anterior foreleg Ischial decubitus Sacral pressure ulcer. Status post amputation left fifth toe. Peripheral vascular disease Hypertension. Peripheral neuropathy. Deconditioning. Leukocytosis. Pleural effusion , status post right thoracentesis 08/29/2020 for pleural effusion. Hyperkalemia. CHF. Equinovarus contractures bilateral lower extremities. CHIEF COMPLAINT: Generalized weakness Fatigue. Shortness of breath. . HISTORY OF PRESENT ILLNESS: REVIEW OF SYSTEMS: The following is a completed review of systems and has been reviewed. . PAIN: Patient lacks sensation in the lower extremities but has generalized discomfort EYES: No recent vision changes. EARS, NOSE, & THROAT: No throat pain, or dysphagia, or rhinorrhea. CARDIOVASCULAR: Denies chest pain or palpitations. PULMONARY: Denies shortness of breath. GASTROINTESTINAL: Denies constipation/diarrhea. GENITOURINARY: .occasional incontinence MUSCULOSKELETAL: .bilateral foot contractures NEUROLOGICAL:.Perhipheral neuropathy HEMATOLOGICAL: anemia SKIN: .multiple skin breakdowns PSYCHIATRIC: possible depression All other review of systems found to be negative. PAST MEDICAL HISTORY: Type 1 Diabetes. Hypertension. Peripheral vascular disease, awaiting placement of stents in bilateral lower extremities Diabetic foot ulcers left lateral foot, venous stasis ulcer, right anterior foreleg. Status post amputation left fifth toe. Peripheral vascular disease Hypertension. Peripheral neuropathy. Equinovarus contractures bilateral lower extremities. PAST SURGICAL HISTORY: Status post bilateral cataracts and retinal surgeries Right thoracotomy 08/29/2020. Amputation left fifth toe Vascular AV fistula access left proximal arm ALLERGIES: Vancomycin causes altered mental status Please see below. MEDICATIONS: Please see below. FAMILY HISTORY: Mother 73, father at 72 from autoImmune neutropenic disease . SOCIAL HISTORY: .Non- Smoker, No EtOH, lives in a [address] entrance [address] home. DIET: ADA. PHYSICAL EXAMINATION: VITAL SIGNS: Please see below. GENERAL: Pleasant and subdued with delayed responses. HEENT: PERRL, shining lens light reflection. Extraocular movements intact. Clear conjunctiva, no adenopathy or thyromegaly. Full cervical range of motion without tenderness or spasm. Thinning hair CARDIOVASCULAR: Regular rate and rhythm. II/ murmur LUNGS: Clear to auscultation bilaterally. No wheezes. No rhonchi, blunted breath sounds bilateral bases, right worse than left. Healing right thoracotomy scar, tender. ABDOMEN: Soft, nontender, distended. Positive normal active bowel sounds, no organomegaly. NEUROLOGICAL: Alert and oriented times three. Cranial nerves II through XII intact. Sensation grossly intact. Reflexes absent bilateral biceps, triceps, brachial radialis, patellar, Achilles tendon jerks. EXTREMITIES: hyperpigmented, hyperkeratotic peeling skin changes bilateral forelegs, feet. 5/5 strength bilateral travel registered nurse nicu, elbow flexion, elbow extension, knee extension, equinovarus contractures bilateral feet, 0/5 active foot motion.. Absent L 5th digit. Pulses discernible only with Doppler US. Slight calf tenderness bilaterally. Venous access left proximal arm. SKIN: .Gr II sacral pressure ulcer, nodule left gluteal fold, 2x3 diabetic pressure ulcer left cuboid region, shearing left heel, hyperpigmented areas right 2nd toe, right foreleg anterior tibial spine. LABORATORY DATA: Please see below. IMAGING:Imaging documentation personally reviewed by record. FUNCTIONAL STATUS: Premorbid: Independent with all activities of daily life as well as mobility. On Admission: -mod/max assistance for lower body dressing, shower transfers, stairs. -Mod/max assistance for bathing, upper body dressing, bed chair and wheelchair transfers, toilet transfers, ambulation. - Min assistance for grooming. - Min assist for memory and problem solving. Modified independence for social interaction, expression, comprehension, bowel and bladder. GOALS: ASSESSMENT: 44-year-old juvenile diabetic with past medical history of CKD, peripheral neuropathy, skin breakdowns bilateral lower extremities, who presents status post CHF with pleural effusions requiring right thoracotomy 7.. PLAN: 1. Rehab- PT/OT advance gait and ADls, strengthen/stretch/maintain ROM all 4 limbs. We'll continue to work on timing pain medication with therapy interventions to optimize possible capacity to participate. 2. Neuro-severe peripheral neuropathy, continue 3. Ortho- heel protection, splints, 4. Cardiac- CHF monitor and adjust meds, track weights, VS -HTN continue Losartan, monitor 5. Resp -incentive spirometry, monitor for infection 6. Endo- Type 1 DM, SSI, dietary adjustments 7. /electrolyte disturbances- Dialysis Tue//Tue 8. GI ppx- PPI, dietary education, nutritional support 9. Skin-ulcers sacrum, ischium, bilateral lower extremities, wound care, nutritional support POST ADMISSION PHYSICIAN EVALUATION: Medical and functional status: Description of medical status, medical assessment: As above. Rehabilitation diagnosis and current and prior co- morbid medical conditions as above. Risk of complications and plans to mitigate them as above. Description of functional status current status is as above. Prior status as above. Status compared to preadmission: There are no clinically significant differences between the patient's current status and the information described on the preadmission screening document. Treatment plan anticipated: Treatment plan is as described above. Required disciplines including physical therapy, occupational therapy, others as noted above]. Intensity of services: 3 hours a day, 6-7 days a week. Special considerations: We will observe her capacity to tolerate intensity, may need to consider decreased intensity sessions, adjust as needed during chair time days. Currently no immediate preclusions to implementation of an intensive rehabilitation program or that subsequently influence the plan of care. ATTESTATION: Considering all the information above, it is my best judgment that this patient requires intensive rehabilitation therapy as described above and an inpatient hospital environment due to the complexity of nursing, medical, and rehabilitation needs required by the patient. Furthermore, this patient can reasonably be expected to participate in an benefit from an inpatient rehabilitation stay with an interdisciplinary team approach to the delivery of rehabilitation care under the direction and supervision of rehabilitation physician. PROGNOSIS: Excellent. ESTIMATED LENGTH OF STAY:7-10 days. PROJECTED DISCHARGE DESTINATION: Home with family support and any durable medical equipment required to increase functional safety and mobility. TIME SPENT COUNSELING AND COORDINATING INITIAL CARE: Greater than 60 minutes. This document is generated using speech recognition software which may result in grammatical, typographical and individual word errors. Vital Signs Vital Sign - Last 24 Hours 09/02/20 16:45 Temp 97.6 Pulse 71 Resp 20 B/P (MAP) 163/70 (101) Pulse Ox 94 O2 Delivery Room Air Laboratory Data Labs 24H Laboratory Tests 2 09/02/20 17:25: Bedside Glucose (Misc Panel) 262H FSBS Laboratory Tests Test 09/02/20 17:25 Range/Units Bedside Glucose (Misc Panel) 262 70-105 MG/DL Home Medications Scheduled Darbepoetin Jung in Polysorbat (Aranesp) 200 Mcg/0.4 Ml Syringe, 200 MCG IV HD Ergocalciferol (Vitamin D2) (Vitamin D2) 50,000 Units Cap, 50,000 UNITS PO QWEEK, (Reported) WEDNESDAYS Escitalopram Oxalate (Lexapro) 10 Mg Tab, 10 MG PO QHS, (Reported) Hydralazine HCl (Hydralazine HCl) 10 Mg Tablet, 10 MG PO BID, (Reported) Insulin Detemir (Levemir) 100 Unit/1 Ml Vial, 16 UNITS SC QHS Insulin Human Lispro (Humalog) 100 Unit/1 Ml Vial, 1 DOSE SC ACHS, (Reported) PER SLIDING SCALE Losartan Potassium (Losartan Potassium) 100 Mg Tablet, 100 MG PO DAILY, (Reported) Pantoprazole Sodium (Pantoprazole Sodium) 40 Mg Tablet.dr, 40 MG PO QHS Patiromer Calcium Sorbitex (Veltassa) 8.4 Gm Pow, 8.4 GM PO 4XWK, (Reported) TUESDAY, TUESDAY, TUESDAY AND TUESDAY (NON-DIALYSIS DAYS) Sevelamer Carbonate (Renvela) 800 Mg Tablet, 1,600 MG PO WM, (Reported) Allergies Coded Allergies: vancomycin (Verified Adverse Reaction, Intermediate, Hallucinations, 06/10/20) A-FIB/CHADSVASC A-FIB History Current/History of A-Fib/PAF?: No Current PO Anticoag Therapy: No Age/Risk Factor Scoring CHADSVASC: CHADSVASC Response (Comments) Value Age Risk Factor Age < 65 years old 0 Gender Risk Factor Female 1 Hx of CHF Yes 1 Hx of HTN Yes 1 Hx of Stroke/TIA/or VTE No 0 Hx of Diabetes Yes 1 Hx of Vascular Disease Yes 1 Total 5 Treatment Treatment ordered: NONE TAI YADAV MD Sep 02, 2020 20:37
[2020-09-02] MEDS: **hydrALAZINE** 10 MG TAB PO SCH (20:42)
[2020-09-02] MEDS ORDERED: ESCITALOPRAM OXALATE 10 MG TAB (LEXAPRO) PO SCH (21:00)
[2020-09-02] MEDS ORDERED: PANTOPRAZOLE 40MG TAB (PROTONIX) PO SCH (21:00)
[2020-09-02] MEDS ORDERED: LEVEMIR (INSULIN DETEMIR) 1 UNITS/0.01ML SC SCH (21:00)
[2020-09-02] MEDS ORDERED: HumaLOG INSULIN (NovoLOG) PER UNIT SC STA (23:54)
[2020-09-03] MEDS ORDERED: HumuLIN N INSULIN (NovoLIN N) PER UNIT SC ONE (01:15)
[2020-09-03 01:47] LABS: BASO % 0.8 % (0.0-1.0); EOS # 0.2 10^3/uL (0.0-0.5); EOS % 4.9 % (0.0-3.0); HEMATOCRIT 32.9 % (36.0-47.0); HEMOGLOBIN 10.8 g/dl (12.0-15.5); LYMPH # 0.8 10^3/uL (1.5-5.0); LYMPH % 21.4 % (24.0-44.0); MEAN CORPUSCULAR HEMOGLOBIN 34.8 pg (27.0-33.0); MEAN CORPUSCULAR HGB CONC 32.8 g/dl (32.0-36.5); MEAN CORPUSCULAR VOLUME 106.1 fl (80.0-96.0); MONO # 0.4 10^3/uL (0.0-0.8); MONO % 11.5 % (2.0-8.0); NEUTROPHILS # 2.2 10^3/uL (1.5-8.5); NEUTROPHILS % 61.1 % (36.0-66.0); PLATELET COUNT, AUTOMATED 116 10^3/uL (150-450); VENOUS HCO3 22.4 MEQ/L (23.0-27.0); VENOUS O2 SATURATION 95.1 % (60.0-80.0); VENOUS PARTIAL PRESSURE CO2 41.1 mmHg (38.0-50.0); VENOUS PH 7.354 UNITS (7.330-7.430); VENOUS TOTAL CO2 23.6 MEQ/L (24.0-28.0); WHITE BLOOD COUNT 3.6 10^3/uL (4.0-10.0)
[2020-09-03 02:19] LABS: ACETONE/KETONE 0.84 MG/DL (<2.81); CREATININE FOR GFR 4.24 MG/DL (0.55-1.30); GLOMERULAR FILTRATION RATE 12.2 (>58); POTASSIUM SERUM 4.3 MEQ/L (3.5-5.1)
[2020-09-03] MEDS ORDERED: NS 250 ML IV ONE (02:20)
[2020-09-03] MEDS: HumaLOG INSULIN (NovoLOG) PER UNIT SC SCH ×2 (02:59→05:27)
[2020-09-03 06:00] VITALS: BP 110/62
[2020-09-03 06:43] LABS: EOS # 0.2 10^3/uL (0.0-0.5); EOS % 5.5 % (0.0-3.0); LYMPH % 24.5 % (24.0-44.0); MEAN CORPUSCULAR HEMOGLOBIN 34.6 pg (27.0-33.0); MEAN CORPUSCULAR HGB CONC 33.3 g/dl (32.0-36.5); MEAN CORPUSCULAR VOLUME 103.8 fl (80.0-96.0); MONO # 0.6 10^3/uL (0.0-0.8); MONO % 13.3 % (2.0-8.0); NEUTROPHILS # 2.3 10^3/uL (1.5-8.5); NEUTROPHILS % 55.2 % (36.0-66.0); PLATELET COUNT, AUTOMATED 148 10^3/uL (150-450); RED BLOOD COUNT 3.18 10^6/uL (4.00-5.40); WHITE BLOOD COUNT 4.2 10^3/uL (4.0-10.0)
[2020-09-03 07:16] LABS: ALBUMIN 3.1 GM/DL (3.2-5.2); BILIRUBIN,TOTAL 0.6 MG/DL (0.2-1.0); CALCIUM LEVEL 8.8 MG/DL (8.5-10.1); CREATININE FOR GFR 4.31 MG/DL (0.55-1.30); GLOMERULAR FILTRATION RATE 11.9 (>58); TOTAL PROTEIN 6.9 GM/DL (6.4-8.2)
[2020-09-03] MEDS ORDERED: HumaLOG INSULIN (NovoLOG) PER UNIT SC SCH ×4 (07:30→21:00)
[2020-09-03] MEDS: (RENVELA) SEVELAMER **CARBONate** 800 MG TAB PO SCH ×2 (08:58→12:29)
[2020-09-03 08:59] VITALS: BP 118/72
[2020-09-03] MEDS: **hydrALAZINE** 10 MG TAB PO SCH (08:59)
[2020-09-03] MEDS ORDERED: LOSARTAN 50MG TABLET PO SCH (09:00)
[2020-09-03] MEDS ORDERED: MULTIVITAMINS/MINERALS THERAP 1 TAB PO SCH (09:00)
[2020-09-03] MEDS ORDERED: DOCUSATE SODIUM 100MG CAPSULE PO SCH (09:00)
--- NOTE | 2020-09-03 09:41 | IPNPDOC ---
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 Diabetic foot ulcers left lateral foot, venous stasis ulcer, right anterior foreleg Ischial decubitus Sacral pressure ulcer. Status post amputation left fifth toe. Peripheral vascular disease Hypertension. Peripheral neuropathy. Deconditioning. Leukocytosis. Pleural effusion , status post right thoracentesis 08/29/2020 for pleural effusion. Hyperkalemia. CHF. Equinovarus contractures bilateral lower extremities. CHIEF COMPLAINT: Generalized weakness Fatigue. Shortness of breath. . HISTORY OF PRESENT ILLNESS: 44-year-old Type 1 diabetic with past medical history of CKD on dialysis /Tue/Tue, peripheral neuropathy, skin breakdowns bilateral lower extremities, who presented with CHF with pleural effusions requiring right thoracotomy 7.. She is also suffering fatigue, generalized weakness, diarrhea, that had been escalating prior to admission. She was unable to undergo her usual dialysis and was found to have systolic blood pressure 212, white count 11.6, sodium 129, potassium 8. She was found to have moderate abdominal and pelvic ascites and a large right pleural effusion in the ER and was given Kayexalate and D50 IV insulin and emergent dialysis. She subsequently stabilized and is felt ready for transfer to the rehabilitation unit on 09/02/2020, for comprehensive rehabilitation. 09/03/2020 Apparently last night he had poor by mouth intake, no HS assessment or dosing, blood sugar, spiked to 530, is covered with regular and NPH insulin, bottom added 36 this morning, coming up to 60 with encouragement of by mouth intake. Interestingly, when she was at a very low level, she had no apparent cognitive physical signs clinic to nursing. Interim labs noted for sodium 130. She is now stabilized and beginning various therapy evaluations today REVIEW OF SYSTEMS: The following is a completed review of systems and has been reviewed. . PAIN: Patient lacks sensation in the lower extremities but has generalized discomfort EYES: No recent vision changes. Has had multiple procedures. EARS, NOSE, & THROAT: No throat pain, or dysphagia, or rhinorrhea. CARDIOVASCULAR: Denies chest pain or palpitations. PULMONARY: Denies shortness of breath. GASTROINTESTINAL: Denies constipation/diarrhea currently. Does have poor appetite and tendency towards diarrhea. GENITOURINARY: .occasional incontinence MUSCULOSKELETAL: .bilateral foot contractures NEUROLOGICAL:.Perhipheral neuropathy HEMATOLOGICAL: anemia SKIN: .multiple skin breakdowns PSYCHIATRIC: possible depression All other review of systems found to be negative. PAST MEDICAL HISTORY: Type 1 Diabetes. Hypertension. Peripheral vascular disease, awaiting placement of stents in bilateral lower extremities Diabetic foot ulcers left lateral foot, venous stasis ulcer, right anterior foreleg. Status post amputation left fifth toe. Peripheral vascular disease Hypertension. Peripheral neuropathy. Equinovarus contractures bilateral lower extremities. PAST SURGICAL HISTORY: Status post bilateral cataracts and retinal surgeries Right thoracotomy 08/29/2020. Amputation left fifth toe Vascular AV fistula access left proximal arm ALLERGIES: Vancomycin causes altered mental status Please see below. MEDICATIONS: Please see below. DIET: ADA. PHYSICAL EXAMINATION: VITAL SIGNS: Please see below. GENERAL: Pleasant and subdued with delayed responses. HEENT: PERRL, shining lens light reflection. Extraocular movements intact. Clear conjunctiva, no adenopathy or thyromegaly. Full cervical range of motion without tenderness or spasm. Thinning hair CARDIOVASCULAR: Regular rate and rhythm. II/ murmur LUNGS: Clear to auscultation bilaterally. No wheezes. No rhonchi, blunted breath sounds bilateral bases, right worse than left. Healing right thoracotomy scar, tender. ABDOMEN: Soft, nontender, distended. Positive normal active bowel sounds, no organomegaly. NEUROLOGICAL: Alert and oriented times three. Cranial nerves II through XII intact. Sensation grossly intact. Reflexes absent bilateral biceps, triceps, brachial radialis, patellar, Achilles tendon jerks. EXTREMITIES: hyperpigmented, hyperkeratotic peeling skin changes bilateral forelegs, feet. 5/5 strength bilateral hedge trimmer, elbow flexion, elbow extension, knee extension, equinovarus contractures bilateral feet, 0/5 active foot motion.. Absent L 5th digit. Pulses discernible only with Doppler US. Slight calf tenderness bilaterally. Venous access left proximal arm. SKIN: .Gr II sacral pressure ulcer, nodule left gluteal fold, 2x3 diabetic pressure ulcer left cuboid region, shearing left heel, hyperpigmented areas right 2nd toe, right foreleg anterior tibial spine. LABORATORY DATA: Please see below. Apparently spiked to 534, blood sugar last night. At bedtime coverage regular and NPH given night down at 36 morning came up to 60 and continues to come up withencouragement for by mouth intake, which has been poor. IMAGING:Imaging documentation personally reviewed by record. FUNCTIONAL STATUS: Premorbid: Independent with all activities of daily life as well as mobility. On Admission: -mod/max assistance for lower body dressing, shower transfers, stairs, just begi nning evals, working on eating with setup. -Mod/max assistance for bathing, upper body dressing, bed chair and wheelchair transfers, toilet transfers, ambulation. - Min assistance for grooming. - Min assist for memory and problem solving. Modified independence for social interaction, expression, comprehension, bowel and bladder. GOALS: ASSESSMENT: 44-year-old brittle type I diabetic with past medical history of CKD, peripheral neuropathy, skin breakdowns bilateral lower extremities, who presents status post CHF with pleural effusions requiring right thoracotomy 7., . PLAN: 1. Rehab- PT/OT advance gait and ADls, strengthen/stretch/maintain ROM all 4 limbs. We'll continue to work on timing pain medication with therapy interventions to optimize possible capacity to participate. 2. Neuro-severe peripheral neuropathy, continue assessments,medications and nutraceutical and dietary support 3. Ortho- heel protection, splints, 4. Cardiac- CHF monitor and adjust meds, track weights, VS -HTN continue Losartan, monitor 5. Resp -incentive spirometry, monitor for infection 6. Endo- Type 1 DM, SSI, dietary adjustments. Patient cleared today notes that her usual regimen is NPH 8 units twice a day well attempt resuming that follow with sliding scale after meals and at night. Appreciate input from nephrology and hospitalist service regarding her various other indications and regimens. Continue chair time Tuesday, , Tuesday. 7. /electrolyte disturbances- Dialysis Tue//Tue 8. GI ppx- PPI, dietary education, nutritional support 9. Skin-ulcers sacrum, ischium, bilateral lower extremities, wound care, nutritional support PROGNOSIS: Good ESTIMATED LENGTH OF STAY:7-14 days. PROJECTED DISCHARGE DESTINATION: Home with family support and any durable medical equipment required to increase functional safety and mobility. TIME SPENT COUNSELING AND COORDINATING INITIAL CARE: Greater than 30 minutes. This document is generated using speech recognition software which may result in grammatical, typographical and individual word errors. Allergies Coded Allergies: vancomycin (Verified Adverse Reaction, Intermediate, Hallucinations, 06/10/20) Vital Signs Vital Signs Date Time Temp Pulse Resp B/P (MAP) Pulse Ox O2 Delivery O2 Flow Rate FiO2 09/03/20 08:59 110/62 09/03/20 06:00 97.6 66 19 94 Room Air Laboratory Data CBC/BMP Laboratory Tests 09/03/20 01:30 09/03/20 06:22 Labs 24H Laboratory Tests 2 09/02/20 17:25: Bedside Glucose (Misc Panel) 262H 09/02/20 21:03: Bedside Glucose (Misc Panel) 485H 09/02/20 23:49: Bedside Glucose (Misc Panel) 552*H 09/03/20 01:05: Bedside Glucose (Misc Panel) 534*H 09/03/20 01:30: Immature Granulocyte % (Auto) 0.3, Neutrophils (%) (Auto) 61.1, Lymphocytes (%) (Auto) 21.4L, Monocytes (%) (Auto) 11.5H, Eosinophils (%) (Auto) 4.9H, Basophils (%) (Auto) 0.8, Neutrophils # (Auto) 2.2, Lymphocytes # (Auto) 0.8L, Monocytes # (Auto) 0.4, Eosinophils # (Auto) 0.2, Basophils # (Auto) 0.0, Nucleated Red Blood Cells % (auto) 0.0, Blood Gas Bicarbonate Standard 22.0, Venous Blood pH 7.354, Venous Blood Partial Pressure CO2 41.1, Venous Blood Partial Pressure O2 84.0H, Venous Blood Total Carbon Dioxide 23.6L, Venous Blood HCO3 22.4L, Venous Blood Oxygen Saturation 95.1H, Venous Blood Base Excess -3.0L, Anion Gap 11, Glomerular Filtration Rate 12.2L, Calcium Level 8.0L, B-Hydroxybutyrate 0.84 09/03/20 04:59: Bedside Glucose (Misc Panel) 193H 09/03/20 06:22: Immature Granulocyte % (Auto) 0.5, Neutrophils (%) (Auto) 55.2, Lymphocytes (%) (Auto) 24.5, Monocytes (%) (Auto) 13.3H, Eosinophils (%) (Auto) 5.5H, Basophils (%) (Auto) 1.0, Neutrophils # (Auto) 2.3, Lymphocytes # (Auto) 1.0L, Monocytes # (Auto) 0.6, Eosinophils # (Auto) 0.2, Basophils # (Auto) 0.0, Nucleated Red Blood Cells % (auto) 0.0, Anion Gap 10, Glomerular Filtration Rate 11.9L, Calcium Level 8.8, Total Bilirubin 0.6, Aspartate Amino Transf (AST/SGOT) 39H, Alanine Aminotransferase (ALT/SGPT) 41, Alkaline Phosphatase 362H, Total Protein 6.9, Albumin 3.1L, Albumin/Globulin Ratio 0.8L 09/03/20 07:28: Bedside Glucose (Misc Panel) 36*L 09/03/20 07:54: Bedside Glucose (Misc Panel) 61L 09/03/20 08:23: Bedside Glucose (Misc Panel) 152H 09/03/20 08:27: Bedside Glucose Confirm (Misc) 129 Current Medications Current Medications Current Medications Medications (Trade) Dose Ordered Sig/Christine Route PRN Reason Start Time Stop Time Status Last Admin Dose Admin Acetaminophen (Tylenol Tab) 325 mg TIDP PRN PO MILD PAIN or TEMP > 100.4 09/02/20 19:35 Darbepoetin Jung (Aranesp (Dialysis Use)) 200 mcg HD IV 09/02/20 17:45 Dextrose (Dextrose 50%) 25 ml ASDIRECTED PRN IV SEE LABEL COMMENTS 09/02/20 17:45 Docusate Sodium (Colace) 100 mg DAILY PO 09/03/20 09:00 09/03/20 08:58 Escitalopram Oxalate (Lexapro) 10 mg QHS PO 09/02/20 21:00 09/02/20 20:42 Glucagon (Glucagon) 1 mg ASDIRECTED PRN SC SEE LABEL COMMENTS 09/02/20 17:45 Glucose (Glucose) 16 GM ASDIRECTED PRN PO SEE LABEL COMMENTS 09/02/20 17:45 Home Med (Med Rec Complete!) ASDIRECTED XX 09/02/20 15:50 09/02/20 16:56 DC Hydralazine HCl (Apresoline) 10 mg BID PO 09/02/20 21:00 09/03/20 08:59 Insulin Detemir (Levemir Insulin) 16 units QHS SC 09/02/20 21:00 09/02/20 20:42 Insulin Human Lispro (HumaLOG INSULIN) 10 units STAT STAT SC 09/02/20 23:54 09/02/20 23:56 DC 09/03/20 00:01 Insulin Human Lispro (HumaLOG INSULIN) SEE PROTOCOL TABLE QHS RI 09/03/20 21:00 09/03/20 02:36 DC Insulin Human Lispro (HumaLOG INSULIN) See Protocol Table AC RI 09/03/20 07:30 09/03/20 02:36 DC Insulin Human Lispro (HumaLOG INSULIN) See Protocol Table AC RI 09/03/20 12:00 Insulin Human Lispro (HumaLOG INSULIN) See Protocol Table Q6H RI 09/03/20 00:00 09/03/20 08:26 DC 09/03/20 05:27 Insulin Human Lispro (HumaLOG INSULIN) See Protocol Table QHS RI 09/03/20 21:00 Insulin Human NPH (HumuLIN NPH INSULIN) 8 units BID@7407,5528 RI 09/03/20 17:30 Losartan Potassium (Cozaar) 100 mg DAILY PO 09/03/20 09:00 09/03/20 08:59 Multivitamins (Theragram-M) 1 tab DAILY PO 09/03/20 09:00 09/03/20 08:58 Ondansetron HCl (Zofran) 4 mg Q8HP PRN PO NAUSEA OR VOMITING 09/02/20 19:35 Pantoprazole Sodium (Protonix) 40 mg QHS PO 09/02/20 21:00 09/02/20 20:42 Sevelamer Carbonate (Renvela) 1,600 mg WM PO 09/02/20 18:00 09/03/20 08:58 TAI YADAV MD Sep 03, 2020 09:41
[2020-09-03 14:00] VITALS: BP 140/66
--- NOTE | 2020-09-03 16:53 | CR ---
CONSULTATION DATE: 09/03/2020 REASON FOR CONSULT: Management of chronic medical illness. REFERRING PHYSICIAN: Nury Yan MD CHIEF COMPLAINT: Debility requiring rehab services. HISTORY OF PRESENT ILLNESS: This is a 44-year-old female recently admitted to the medical service on 08/26/2020, discharged on 09/02/2020 after being treated for generalized fatigue, weakness and diarrhea, found to have fluid overload, hyperkalemia, hypertensive emergency requiring dialysis with large right pleural effusion which was drained. Pleural effusion was transudative. The patient had ketosis without acidosis, improved with dialysis and insulin. The patient was switched over to Levemir insulin. Ketosis and fluid overload had resolved. The patient felt better. The patient was noted to have chronic ulcer on the foot managed usually with Dr. Sebastian via telemedicine. She was not medically stable for discharge home and was transferred over to the acute rehab unit for rehab services. The patient has had no new complaints this morning, denies any fever, chills, changes in appetite, nausea, vomiting, diarrhea, abdominal pain, shortness of breath, pressure tightness, palpitations, lightheadedness, near syncope. Denies any dysuria, urgency, frequency, polyphagia, polydipsia, polyuria. The patient denies any changes in bowel habits. Diarrhea has improved. She denies any weight gain or weight loss. No other complaints. PAST MEDICAL HISTORY: 1. End-stage renal disease on maintenance dialysis. 2. Type 1 diabetes. 3. Hypertension. 4. Iron deficiency anemia. 5. Alopecia. 6. Abnormal uterine bleed. 7. Chronic left lateral wound ulcers. 8. Hyperlipidemia. 9. Seasonal allergies. 10. Chronic noncompliance with fluids and medications. PAST SURGICAL HISTORY: 1. 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 2. Left AV fistula in arm. 3. Left fifth amputation, 2013. 4. Left eye surgery and cataract surgery in 2009. FAMILY HISTORY: Maternal grandfather had brain, kidney and prostate cancer. SOCIAL HISTORY: Lives with , no alcohol, cigarette or recreational drug use. Denies alcohol abuse. ALLERGIES: VANCOMYCIN. REVIEW OF SYSTEMS: As per HPI, 12-point system otherwise negative. PHYSICAL EXAMINATION: VITAL SIGNS: Temperature 98.7, pulse 65, respiratory rate 18, blood pressure 140/66, 96% on room air. GENERAL: The patient is awake, alert and oriented to person, place and time, answering questions appropriately. No JVD, thyromegaly or cervical lymphadenopathy.. LUNGS: Clear to auscultation, no wheezing, rales or rhonchi. HEART: S1, S2, sinus rhythm. ABDOMEN: Soft, nontender, nondistended. Positive bowel sounds. EXTREMITIES: 2+ pitting edema, bilateral lower extremities. Chronic left lateral mid-foot wound 2.5 cm x 2.3 cm on the plantar aspect. IMPRESSION: 1. End-stage renal disease on maintenance dialysis. Nephrology consulted for dialysis needs on Tuesday, , Tuesday. 2. Electrolyte abnormalities with prior history of elevated potassium, hyperkalemia, managed by dialysis. 3. Anemia of chronic renal failure. Continued on Aranesp. Currently with hemoglobin of 10 at goal. 4. Secondary hyperparathyroidism secondary to end-stage renal disease on phosphorus, Renvela, vitamin D and Sensipar. 5. Hypertension. Improved. Continue on home medications. 6. Type 1 diabetes, sliding scale on insulin, NPH insulin. 7. Chronic hyponatremia secondary to chronic fluid overloaded state, managed by nephrology. 8. Left lateral foot plantar ulcer in a diabetic. Wound care per Dr Gonzales, clinical quality assurance specialist.
[2020-09-03] MEDS ORDERED: HumuLIN N INSULIN (NovoLIN N) PER UNIT SC SCH (17:30)
== END 2020-09-03 15:45 | disposition left against medical advice (07) | DRG 948 ==
LOC: M PM&R 16:45
PROVIDERS: ADMIT Physical Medicine & Rehabilitation; ATTEND Physical Medicine & Rehabilitation
DX: R53.1 Weakness (principal); N18.4 Chronic kidney disease, stage 4 (severe); L97.919 Non-pressure chronic ulcer of unspecified part of right lower leg with unspecified severity; I13.0 Hypertensive heart and chronic kidney disease with heart failure and stage 1 through stage 4 chronic kidney disease, or unspecified chronic kidney disease; N25.81 Secondary hyperparathyroidism of renal origin; E87.1 Hypo-osmolality and hyponatremia; R53.83 Other fatigue; E10.22 Type 1 diabetes mellitus with diabetic chronic kidney disease; E10.621 Type 1 diabetes mellitus with foot ulcer; E10.622 Type 1 diabetes mellitus with other skin ulcer; L97.529 Non-pressure chronic ulcer of other part of left foot with unspecified severity; I87.2 Venous insufficiency (chronic) (peripheral); L89.209 Pressure ulcer of unspecified hip, unspecified stage; L89.159 Pressure ulcer of sacral region, unspecified stage; E10.51 Type 1 diabetes mellitus with diabetic peripheral angiopathy without gangrene; E10.42 Type 1 diabetes mellitus with diabetic polyneuropathy; E87.5 Hyperkalemia; Q66.01 Congenital talipes equinovarus, right foot; Q66.02 Congenital talipes equinovarus, left foot; Z98.41 Cataract extraction status, right eye; Z98.42 Cataract extraction status, left eye; Z89.422 Acquired absence of other left toe(s); Z79.4 Long term (current) use of insulin; Z79.899 Other long term (current) drug therapy; Z88.1 Allergy status to other antibiotic agents; I50.9 Heart failure, unspecified; E78.5 Hyperlipidemia, unspecified; Z91.14 Patient's other noncompliance with medication regimen; D63.1 Anemia in chronic kidney disease

== ENCOUNTER → 2020-09-10 | Outpatient (CLI) | payer MEDICARE, BC ==
[~2020-09-10] MED LIST changes: +CINA30TA4 PO; +ISOVUE-300 61% 50ML VIAL As Ordered ONE; +LIDOCAINE 1% MDV 20ML VIAL As Ordered ONE; +MIDAZOLAM INJ 2MG/2ML VIAL (J2250 PER 1MG) As Ordered ONE; +NITROGLYCERIN IN D5W 25MG/250ML (100MCG/ML) As Ordered ONE; +TUMS500C PO; +diphenhydrAMINE 50MG/ML VIAL (J1200) As Ordered ONE; +fentaNYL 100 MCG/2 ML INJECTION (J3010) As Ordered ONE
[2020-09-10] MEDS: NS 1,000 ML IV SCH (08:27)
--- NOTE | 2020-09-10 09:04 | IRHP ---
[facility] IR Pre-Procedure H & P General Date of Service: Sep 10, 2020 Procedure: Same Day Surgery Interval History and Physical I have seen the patient and reviewed last H & P performed within 30 days. There is no significant interval change. History of Present Illness Chief Complaint The patient is a 44-year-old female admitted with a reason for visit of PAD. PRE-PROCEDURE DIAGNOSIS: PAD HEART: Normal rate. LUNGS: Normal breathing at rest. ASA Classification ASA Classification: III-Severe systemic dis. Mallampati Score: II NPO: Yes Problems with prior sedation: No Obstructive Sleep Apnea: No Plan moderate sedation Allergies Coded Allergies: vancomycin (Verified Adverse Reaction, Intermediate, Hallucinations, 06/10/20) Home Medications Scheduled Cinacalcet (Sensipar), 1 TAB PO HD, (Reported) Darbepoetin Jung in Polysorbat (Aranesp), 200 MCG IV HD Ergocalciferol (Vitamin D2) (Vitamin D2), 50,000 UNITS PO QWEEK, (Reported) Escitalopram Oxalate (Lexapro), 10 MG PO QHS, (Reported) Folic Acid/Vit B Complex and C (Lesly-Rocío Tablet), 1 TAB PO DAILY, (Reported) Hydralazine HCl (Hydralazine HCl), 10 MG PO BID, (Reported) Insulin Human Lispro (Humalog), 1 DOSE SC ACHS, (Reported) Insulin Human NPH (Humulin N), 10 UNITS SC QAM, (Reported) Insulin Human NPH (Humulin N), 8 UNITS SC QPM, (Reported) Losartan Potassium (Losartan Potassium), 100 MG PO DAILY, (Reported) Patiromer Calcium Sorbitex (Veltassa), 8.4 GM PO 4XWK, (Reported) Sevelamer Carbonate (Renvela), 1,600 MG PO WM, (Reported) Discontinued Medications Calcitriol (Rocaltrol), 0.5 MCG PO HD, (Reported) Discontinued Reason: Pt states not taking Insulin Detemir (Levemir), 16 UNITS SC QHS Discontinued Reason: Pt states not taking Pantoprazole Sodium (Pantoprazole Sodium), 40 MG PO QHS Discontinued Reason: Pt states not taking YAS TEJADA MD Sep 10, 2020 09:03
[2020-09-10 09:14] LABS: HEMATOCRIT 35.8 % (36.0-47.0); HEMOGLOBIN 11.4 g/dl (12.0-15.5); MEAN CORPUSCULAR HEMOGLOBIN 34.7 pg (27.0-33.0); MEAN CORPUSCULAR HGB CONC 31.8 g/dl (32.0-36.5); MEAN CORPUSCULAR VOLUME 108.8 fl (80.0-96.0); PLATELET COUNT, AUTOMATED 158 10^3/uL (150-450); RED BLOOD COUNT 3.29 10^6/uL (4.00-5.40); WHITE BLOOD COUNT 3.9 10^3/uL (4.0-10.0)
[2020-09-10 15:30] VITALS: BP 160/72
--- NOTE | 2020-09-11 11:30 | IRPON ---
IR Postoperative Note Date Of Procedure: Sep 10, 2020 Time Of Procedure: 16:00 IR Postoperative Note IR Left leg angiogram. IR Left below-knee runoff arteriogram. IR Ultrasound-guided right common femoral artery access. IR Anterior tibial artery angioplasty. IR Moderate sedation. Clinical Information:Nonhealing left lower extremity wounds. Physician: Dr. Rojas. Procedure: The patient was advised of the benefits, risks, and alternatives of the procedure and informed consent was obtained. A time out was performed with verification of the patient's name, MRN, site of procedure, and type of procedure to be performed. The patient was positioned in the supine position on the angiographic table. The site was prepped and draped in the usual sterile fashion. Moderate sedation was performed by the physician including the presence of an independent trained RN, who assisted in monitoring the patient's level of consciousness and physiological status. Following the administration of fentanyl and Versed, the physician spent 120 minutes of continuous [id number]-[id number] time with the patient. A universal worker assisted living radiograph reveals calcified vasculature. Ultrasound of the right groin demonstrates patent right common femoral artery. Lidocaine was used for local anesthesia. The right common femoral artery was accessed, under ultrasound guidance with a microintroducer set. A short 0.018" [place] wire was inserted, under fluoroscopy guidance, and the needle was exchanged for a 4 Fr microintroducer sheath. The guidewire and dilator were removed and a 0.035" [place] wire was advanced under fluoroscopic guidance and placed into the abdominal aorta. A 6 Fr sheath was placed over the wire. An Omni flush catheter was advanced over the wire, under fluoroscopy guidance and used to catheterize infrarenal abdominal aorta. A pelvic arteriogram was performed. This demonstrates unremarkable infrarenal abdominal aorta. Patent bilateral common iliac, internal iliac and external iliac arteries. Patent left common femoral, proximal superficial femoral and profunda femoris. A wire was advanced through the flush catheter, under fluoroscopy guidance, and used to gain up an over access into the left common iliac artery. The catheter was removed over the wire. A 4 Afghan glide cath was advanced over the wire, and used to catheterize the left common femoral artery. A left leg angiogram was performed. This demonstrates patent left superficial femoral artery and profunda femoris. Angiography further down the left leg was performed and this demonstrates patent popliteal artery, patent tibioperoneal trunk, posterior tibial artery and peroneal artery. Patent anterior tibial artery with a significant stenosis at the origin and a short segment 90% stenosis in the proximal anterior tibial artery. Arterial runoff to the left foot was performed and this demonstrates continued patency of the left posterior tibial artery, which courses into the left foot to supply calcaneal and plantar branches. Patent peroneal artery to the left ankle at which point it bifurcates. Significant delay in flow in the left anterior tibial artery due to proximal stenosis. The distal left anterior tibial artery is small with multifocal stenosis. An Amplatz wire was advanced through the catheter, under fluoroscopy guidance, and the catheter was removed over the wire. The 6 Afghan short sheath was removed over the wire and a 6 Afghan 45 cm destination sheath was advanced over the wire, and positioned in the left superficial femoral artery. An 035 Gunlock catheter was then advanced over the wire, under fluoroscopy guidance and used to selectively catheterize the proximal left anterior tibial artery. A selective left anterior tibial arteriogram was performed. This demonstrates multifocal stenosis in the distal left anterior tibial artery. The catheter in conjunction with the wire was used under fluoroscopy guidance to try to catheterize the distal left anterior tibial artery. However, with 035 system, this wasn't possible due to severe stenosis. The catheter was removed over the wire. An 018 Navicross catheter was then advanced over the wire, under fluoroscopic guidance, and used to catheterize the proximal left anterior tibial artery. The wire was removed and an 018 double angle GT glide was used to access the distal left anterior tibial artery. The 018 system was then used, under fluoroscopy guidance, to catheterize the distal left anterior tibial artery. Intermittent injection of contrast confirmed intraluminal location. The catheter was then removed over the wire. A 2.5 x 220 mm Leonid balloon, was then advanced over the wire, under fluoroscopy guidance and positioned in the distal popliteal artery and proximal left anterior tibial artery. Angioplasty was performed. Heparin was administered. The balloon was then deflated. A follow-up angioplasty arteriogram was performed, through the groin sheath, tip located in the left superficial femoral artery. This demonstrates improved flow in the proximal left anterior tibial artery. A focal stenosis in the proximal left anterior tibial artery remains. Distally there is spasm in the left anterior tibial artery. Flow in the popliteal artery, tibioperoneal trunk, peroneal and posterior tibial artery remains patent with no distal emboli. An 018 catheter was then advanced over the wire, under fluoroscopy guidance and used to catheterize the distal left anterior tibial artery. Nitroglycerin was administered into the distal left anterior tibial artery. A follow-up arteriogram was performed through the catheter tip located in the distal left anterior tibial artery and this demonstrates forward flow in the distal left anterior tibial artery, coursing into the left foot with no distal emboli, extravasation or vessel cutoff. The catheter was removed over the wire. A 2 x 220 mm Leonid balloon was then advanced over the wire, under fluoroscopy guidance and position in the proximal and mid left anterior tibial artery. Further advancement of the angioplasty balloon, to the left ankle was not possible as the vessel is small. Angioplasty of the proximal and the mid left anterior tibial artery was performed. The balloon was deflated and a post angioplasty pullback angiogram was performed of the left anterior tibial artery. This demonstrates improved flow in the mid and proximal anterior tibial artery with resolution of proximal stenosis. Preserved antegrade flow to the left foot with no distal emboli, vessel cutoff or extravasation. Catheter, wire and sheath were removed. A Mynx device was used to close the right groin arteriotomy. Pressure held and hemostasis achieved. A sterile dressing was applied to the site. The patient tolerated the procedure well and was returned to the PRU in stable condition. EBL: < 5 mL. Complications:None. Impression: 1. Left leg angiogram demonstrates patent inflow and outflow. 2. Below-knee arterial runoff demonstrates multifocal stenosis in the left anterior tibial artery. Patent posterior tibial and peroneal artery. 3. Successful left anterior tibial artery angioplasty with improved 3 vessel flow to the left foot. Thank you for this referral. Cc YAS Bui MD Sep 11, 2020 11:30
== END ==
LOC: M IRPRO 08:09
PROVIDERS: ATTEND Radiology Diagnostic Radiology
DX: I70.249 Atherosclerosis of native arteries of left leg with ulceration of unspecified site (principal); L97.929 Non-pressure chronic ulcer of unspecified part of left lower leg with unspecified severity; Z79.4 Long term (current) use of insulin; Z79.899 Other long term (current) drug therapy; Z88.1 Allergy status to other antibiotic agents
CPT/HCPCS: 36415; 37228; 75630; 75774; 85027; 99152; 99153; C1725; C1729; C1760; C1769; C1887; C1894; J1644; J2250; J3010; Q9967

== ENCOUNTER → 2020-10-07 | Outpatient (POV) | payer MEDICARE, BC ==
[~2020-10-07] VITALS: Ht 162.6 cm; Wt 65.9 kg
[~2020-10-07] MED LIST changes: -ISOVUE-300 61% 50ML VIAL As Ordered ONE; -LIDOCAINE 1% MDV 20ML VIAL As Ordered ONE; -MIDAZOLAM INJ 2MG/2ML VIAL (J2250 PER 1MG) As Ordered ONE; -NITROGLYCERIN IN D5W 25MG/250ML (100MCG/ML) As Ordered ONE; -diphenhydrAMINE 50MG/ML VIAL (J1200) As Ordered ONE; -fentaNYL 100 MCG/2 ML INJECTION (J3010) As Ordered ONE
[2020-10-07 11:50] VITALS: BP 190/88
--- NOTE | 2020-10-09 10:34 | IRPN ---
[facility] IR Progress Note IR Progress Note DATE: Oct 07, 2020 FOLLOW-UP: Patient is few weeks status post left lower extremity angiography and left anterior tibial artery recanalization and angioplasty, with improvement in 3 vessel flow to the left foot. Patient states she has no pain in the left leg. She reports her ulcer is healing much better now. Patient reports the groin access site healed up with no issues. ON EXAMINATION: Groin access site healed. No redness, no swelling or mass. IMPRESSION: Doing well status post left lower extremity angiography and revascularization for nonhealing ulcer. Patient to continue with wound care. Follow-up in IR and 1 year. Thank you for this referral. Cc Jannette Connors Allergies Coded Allergies: vancomycin (Verified Adverse Reaction, Intermediate, Hallucinations, 06/10/20) VS,Fishbone, I+O VS, Fishbone, I+O Vital Signs Date Time Temp Pulse Resp B/P (MAP) Pulse Ox O2 Delivery O2 Flow Rate FiO2 10/07/20 11:50 97.3 68 18 190/88 (122) 100 Room Air YAS TEJADA MD Oct 09, 2020 10:34
== END ==
LOC: M IRPOV 11:28
PROVIDERS: ATTEND Radiology Diagnostic Radiology
DX: Z48.812 Encounter for surgical aftercare following surgery on the circulatory system (principal); I70.249 Atherosclerosis of native arteries of left leg with ulceration of unspecified site; L97.929 Non-pressure chronic ulcer of unspecified part of left lower leg with unspecified severity; Z88.1 Allergy status to other antibiotic agents

== ENCOUNTER 2021-01-08 20:01 | Inpatient (IN) | payer MEDICARE, BC ==
[~2021-01-08] VITALS: Ht 162.6 cm; Wt 67.9 kg
[2021-01-08] MEDS: HumaLOG INSULIN (NovoLOG) PER UNIT SC SCH (03:15)
[2021-01-08] MEDS: **hydrALAZINE** 10 MG TAB PO SCH (03:15)
[2021-01-08] MEDS: HumuLIN N INSULIN (NovoLIN N) PER UNIT SC SCH (03:15)
[2021-01-08] MEDS: ESCITALOPRAM OXALATE 10 MG TAB (LEXAPRO) PO SCH (03:15)
[~2021-01-08 20:01] MED LIST changes: +DOXY-443 PO; -DOXY1CAP62 PO
--- OUTSIDE RECORDS SUMMARY | 2021-01-08 20:12 | CCD ---
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 Name Role Phone Jannette Núñez Unavailable PROBLEMS Type Condition ICD9-CM Code QHK43-TD Code Onset Dates Condition S tatus W/U Status Risk SNOMED Code Notes Problem Chronic kidney disease, stage V N18.5 Active confi rmed 468972054 Problem Mixed diabetic hyperlipidemia associated with type 1 diabetes mellitus E10.69 Active confirmed 468243053 Problem Mixed hyperlipidemia E78.2 Active confirmed 396506890 Problem Macrocytosis D75.89 Active confirmed 8007417 00 Problem Vitreous hemorrhage, left eye H43.12 Active confirm ed 72782254 Problem Renovascular hypertension I15.0 Active confirmed 871869760 Problem Gait instability R26.81 Active confirmed 226 24484 Problem Depression, unspecified depression type F32.9 Active confirmed 99880209 Problem End stage renal disease on dialysis due to type 1 diabetes mellitus E10.22 Active confirmed 31078455988184 Problem Abnormal uterine bleeding (AUB) N93.9 Active confirmed 75377492721422 Problem Type 1 diabetes mellitus with vitreous hemorrhage of r ight eye E10.39 Active confirmed 12453805 Problem Vitreous hemorrhage of right eye H43.11 Active conf irmed 15631594 Problem Dysthymia F34.1 Active confirmed 77093414 Problem Iron deficiency anemia, unspecified D50.9 Acti ve confirmed 59888644 Problem Non-seasonal allergic rhinitis due to other allergic demi er J30.89 Active confirmed 23378804 Problem Chronic cough R05 Active confirmed 556879 08 Problem Dependence on renal dialysis Z99.2 Active confirme d 276290227 Problem 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 severity L97.429 Active confirmed 293426635 Problem Type 1 diabetes mellitus with foot ulcer E10.621 Active confirmed 02254230961175 Problem 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 Active confirmed 026085413 Problem Alopecia L65.9 Active confirmed 36783453 Problem Diabetes with renal manifest ations, type I [juvenile type], uncontrolled 250.43 Active confirmed 668854783 Problem Diabetic retinopathy associa alba with type 1 diabetes mellitus, macular edema presence unspecified, unspecified retinopathy severity E10.31 9 Active confirmed Problem End stage renal disease N18.6 Active confirmed 76945953 Problem Type 1 diabetes mellitus with diabetic chronic kidney disease E10.22 Active confirmed 53368693 Problem Hypertensive chronic kidney disease with stage 5 chronic kidney disease or end stage renal disease I12.0 Active confirmed 129 008715310959 Problem Vasomotor rhinitis J30.0 Active confirmed 8 372752 Problem Non-pressure chronic ulcer o f other part of left foot with fat layer exposed L97.522 Active confirmed 659604496 ALLERGIES Allergen (clinical drug ingredient) Drug/Non Drug Allergy do cumented on EMR Reaction Allergy Type Onset Date Status ciprofloxacin Cipro([facility] Code:[address]-70) RASH Drug Allergy Active Seasonal nasal congestion, cough Non Drug Allergy Active ENCOUNTERS from 1976 to 2020-11-26 Encounter Location Date Provider Diagnosis [facility] [phone] [place] [address] Oct, Jannette Núñez IMMUNIZATIONS Vaccine Route Administration Date Status Influenza 6mo & up Fluzone Unknown Oct 29, 2015 Admin istered Influenza 6mo & up Fluzone IM Intramuscular Dec 07, 2013 Admi nistered SOCIAL HISTORY Tobacco Use: Social History Observation Description Date Details (start date - stop date) Never Smoker Sex Assigned At : Social History Observation Description Sex Assigned At Unknown Education: Question Answer Notes Level of Education: Finished College Audit Question Answer Notes Total Score: 0 Interpretation: Alcohol Education Language: Question Answer Notes Languages spoken: Romanian Moravian: Question Answer Notes Moravian 33 None Sexual Hx: Question Answer Notes Had sex in the last 12 months (vaginal, oral, or anal)? No Have you ever had an STD? No Drug and Alcohol Question Answer Notes Total Score: 0 Interpretation: No problems reported Alcohol Screening: Question Answer Notes Did you have a drink containing alcohol in the past year? No Points 0 Interpretation Negative BMI Care Goal Follow-Up Question Answer Notes Above Normal BMI Follow-Up Dietary management educatio n, guidance, and counseling Tobacco Use: Question Answer Notes Are you a: never smoker REASON FOR REFERRAL No Information VITAL SIGNS No information MEDICATIONS Medication SIG (Take, Route, Frequency, Duration) Notes Start Da te End Date Status Orthotics Bilateral Custom molded articulating AFOs 19 2017 Active Wheelchair - as directed as directed for 99 months Aug, Active hydrALAZINE HCl 10 MG 1 tablet with food Orally BID Active Escitalopram Oxalate 10 MG 1 tablet Oral Daily for 90 days Active Fluconazole 150 MG 1 tablet Orally once for 1 day(s) 2020 Active Veltassa 8.4 GM 1 packet with food Orally 4x week, //Tue/Tuesday, non-dialysis days frequency change June, Active HumaLOG 100 UNIT/ML as directed Subcutaneous as directed per sli ding scale June, Active Lesly-Rocío 1 tablet Orally Once a day Active NovoLOG 100 UNIT/ML use as directed Subcutaneous per sliding scale (MDD: Max 30 units daily) Oct, Not-Taking Penicillin V Potassium 500 MG 1 tablet Orally three times daily x5 days June, Not-Taking Premium Blood Glucose Test - as directed _ June, Active Auryxia 1 GM 210 MG(Fe) 630 mg Oral Three times a day with meals dosage change June, Not-Taking Claritin 10 MG 1 tablet Orally QOD for 30 day(s) Jan, 019 Not-Taking Bath/Shower Seat - as directed as directed for 99 months 1 3 Aug, 2017 Active Calcitriol 0.5 MCG 1 capsule Orally three times a week on dialysis days, T, Th, Sat June, Not-Taking Lanthanum Carbonate 1000 MG 1 tablet with meals Orally Three times a day Not-Taking Losartan Potassium 100 MG 1 tablet Orally Once a day for 30 day(s) Active Vitamin D (Ergocalciferol) 87461 UNIT 1 capsule Orally once a week Active HumuLIN N 100 UNIT/ML take 15 units in the morning , 10 units at night Subcutaneous twice daily as directed Oct, Active Dificid 200 MG 1 tablet Orally Twice a day for 10 day(s) 2 2 June, 2020 Unknown PROCEDURES No Information RESULTS No Results REASON FOR VISIT R/s [facility] Apt MEDICAL (GENERAL) HISTORY Type Description Date Medical History Type 1 DM (diagnosed at age 21) Medical History Iron def. anemia Medical History Seasonal allergies Medical History Stage 5 chronic kidney disease due to ty pe 1 diabetes mellitus Medical History Dialysis patient Medical History Renovascular hypertension Medical History Mixed hyperlipidemia Medical History Macrocytosis Medical History Diabetic retinopathy associa alba with type 1 diabetes mellitus, macular edema presence unspecified, unspecified retinopathy severity Medical History Type 1 diabetes mellitus with vitreous h emorrhage of left eye Medical History Alopecia Medical History Abnormal uterine bleeding (AUB) Surgical History removal of cataracts jas 07/2009 Surgical History 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 Surgical History RIGHT KIDNEY SURGERY Surgical History Left leg Angioplasty 09/10/2020 Hospitalization History Resp infection 10/2011 Hospitalization History Resp infection, DKA 03/2000 Hospitalization History pneumonia 06/1981 Hospitalization History Osteomyelitis; Uncontrolled DM Hospitalization History transfusion, renal failure 08/2014 Hospitalization History UTI 07/25/17 Hospitalization History Complications from renal/pancrease t ransplant 2016 Hospitalization History flu - [facility] 06/[address] [facility] - cardio 06/2018 Hospitalization History STOMACH FLU-[facility] 2019 Hospitalization History INFECTION-[facility] 2020 Hospitalization History [facility] admitted 08/25/2020 Hospitalization History food poinoning 08/18 Goals Section No Information Health Concerns No Information MEDICAL EQUIPMENT No Information MENTAL STATUS No Information FUNCTIONAL STATUS No Information ASSESSMENTS No Information PLAN OF TREATMENT Next Appt Details Provider Name:Jannette Núñez, 11-28 03:00:00 PM, [address], , [place], [address], Insurance Providers Payer Name Payer Address Payer Phone Insured Name Patient Relati onship to Insured Coverage Start Date Coverage End Date MEDICARE Part A and B [address] [facility] [id number] [phone] KAYLEE [place] self [place] [id number] [address] [facility] [id number] [place]
--- OUTSIDE RECORDS SUMMARY | 2021-01-08 20:12 | CCD ---
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 Active confirmed 944385251 Problem Mixed hyperlipidemia E78.2 Active confirmed 885078183 Problem Macrocytosis D75.89 Active confirmed 8893647 00 Problem Vitreous hemorrhage, left eye H43.12 Active confirm ed 80391459 Problem Renovascular hypertension I15.0 Active confirmed 104936479 Problem Gait instability R26.81 Active confirmed 226 41392 Problem Depression, unspecified depression type F32.9 Active confirmed 62655109 Problem End stage renal disease on dialysis due to type 1 diabetes mellitus E10.22 Active confirmed 43589296782226 Problem Abnormal uterine bleeding (AUB) N93.9 Active confirmed 54048318029389 Problem Type 1 diabetes mellitus with vitreous hemorrhage of r ight eye E10.39 Active confirmed 65084648 Problem Vitreous hemorrhage of right eye H43.11 Active conf irmed 15117271 Problem Dysthymia F34.1 Active confirmed 81276463 Problem Iron deficiency anemia, unspecified D50.9 Acti ve confirmed 39697053 Problem Non-seasonal allergic rhinitis due to other allergic demi er J30.89 Active confirmed 41109117 Problem Chronic cough R05 Active confirmed 589457 08 Problem Dependence on renal dialysis Z99.2 Active confirme d 585273020 Problem 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 severity L97.429 Active confirmed 851313405 Problem Type 1 diabetes mellitus with foot ulcer E10.621 Active confirmed 11151527606816 Problem 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 Active confirmed 600270117 Problem Alopecia L65.9 Active confirmed 04614719 Problem Diabetes with renal manifest ations, type I [juvenile type], uncontrolled 250.43 Active confirmed 153984393 Problem Diabetic retinopathy associa alba with type 1 diabetes mellitus, macular edema presence unspecified, unspecified retinopathy severity E10.31 9 Active confirmed Problem End stage renal disease N18.6 Active confirmed 38126644 Problem Type 1 diabetes mellitus with diabetic chronic kidney disease E10.22 Active confirmed 09625034 Problem Hypertensive chronic kidney disease with stage 5 chronic kidney disease or end stage renal disease I12.0 Active confirmed 129 746834125210 Problem Vasomotor rhinitis J30.0 Active confirmed 8 931676 Problem Non-pressure chronic ulcer o f other part of left foot with fat layer exposed L97.522 Active confirmed 159521080 ALLERGIES Allergen (clinical drug ingredient) Drug/Non Drug Allergy do cumented on EMR Reaction Allergy Type Onset Date Status ciprofloxacin Cipro([facility] Code:[address]-23) RASH Drug Allergy Active Seasonal nasal congestion, cough Non Drug Allergy Active ENCOUNTERS from 1976 to 2020-10-22 Encounter Location Date Provider Diagnosis [facility] Wound Care [address] [phone] [place] [address] Sep, Jannette Wilton Type 1 diabetes mellitus wit h foot ulcer E10.621 and Non- pressure chronic ulcer of left heel and midfoot with fat layer exposed L97.422 IMMUNIZATIONS Vaccine Route Administration Date Status Influenza [...] Language: Question Answer Notes Languages spoken: Romanian Buddhism: Question Answer Notes Buddhism 33 None Sexual Hx: Question Answer Notes [...] REASON FOR REFERRAL No Information VITAL SIGNS Weight 147 lbs Sep, Height 64 in Sep, BMI 25.23 kg/m2 Sep, Heart Rate 88 /min Sep, Respiratory Rate 16 /min Sep, Temperature 97.8 degrees Fahrenheit Sep, Oximetry 100 Sep, Blood pressure systolic 242 mm Hg Sep, Blood pressure diastolic 101 mm Hg Sep, MEDICATIONS Medication SIG (Take, Route, Frequency, Duration) Notes Start Da te End Date Status Dificid 200 MG 1 tablet Orally Twice a day for 10 day(s) 2 June, Unknown Bath/Shower Seat - as directed as directed for 99 months 1 Aug, Active Lanthanum Carbonate 1000 MG 1 tablet with meals Orally Three times a day Not-Taking hydrALAZINE HCl 10 MG 1 tablet with food Orally BID Active Premium Blood Glucose Test - as directed _ June, Active Escitalopram Oxalate 10 MG 1 tablet Oral Daily for 90 days Active Orthotics Bilateral Custom molded articulating AFOs 2017 Active Lesly-Rocío 1 tablet Orally Once a day Active NovoLOG 100 UNIT/ML use as directed Subcutaneous per sliding scale (MDD: Max 30 units daily) Oct, Not-Taking Claritin 10 MG 1 tablet Orally QOD for 30 day(s) Jan, 019 Not-Taking Penicillin V Potassium 500 MG 1 tablet Orally three times daily x5 days June, Not-Taking Vitamin D (Ergocalciferol) 54744 UNIT 1 capsule Orally once a week Active Auryxia 1 GM 210 MG(Fe) 630 mg Oral Three times a day with meals dosage change June, Not-Taking Losartan Potassium 100 MG 1 tablet Orally Once a day for 30 day(s) Active Calcitriol 0.5 MCG 1 capsule Orally three times a week on dialysis days, , , Sat June, Not-Taking HumaLOG 100 UNIT/ML as directed Subcutaneous as directed per sli ding scale June, Active Wheelchair - as directed as directed for 99 months Aug, Active Veltassa 8.4 GM 1 packet with food Orally 4x week, //Tue/Tuesday, non-dialysis days frequency change June, Active HumuLIN N 100 UNIT/ML take 15 units in the morning , 10 units at night Subcutaneous twice daily as directed Oct, Active Fluconazole 150 MG 1 tablet Orally once for 1 day(s) 2020 Active PROCEDURES from 1976 to 2020-10-22 Procedure Date Ordered Result Body Site Medication: 4% Lidocaine topical cream (Anecream) 5gm 2020-10-17 N/A RESULTS No Results REASON FOR VISIT LLE WOUNDS MEDICAL (GENERAL) HISTORY Type Description Date Medical [...] joes - cardio 06/2018 Hospitalization History STOMACH FLU-[facility] 2019 Hospitalization History INFECTION-[facility] 2020 Hospitalization History [facility] admitted 08/25/2020 Hospitalization History food poinoning 08/18 Goals Section No Information Health Concerns No Information MEDICAL EQUIPMENT No Information MENTAL STATUS No Information FUNCTIONAL STATUS No Information ASSESSMENTS Encounter Date Diagnosis Assessment Notes Treatment Notes Treatm ent Clinical Notes Sep, Type 1 diabetes mellitus with foot ulcer (ICD-10 - E10.621) Dressing changes 3x a week. The dressing should follow those documented in the procedure note. Patient was again instructed to get heel float boots to protect her heels. 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 The dressing should follow those documented in the procedure note. Patient was again instructed to get heel float boots to protect her heels. Next Appt Details 2 Weeks Reason: Provider Name:Jannette Damian Núñez, 10-31 11:00:00 AM, [address], , [place], [address], Insurance Providers Payer Name Payer Address Payer Phone Insured Name Patient Relati onship to Insured Coverage Start Date Coverage End Date MEDICARE Part A and B [address] [facility] [address] [place]E [place]E [facility] [place] [address] [address] [facility] [address] [place]
--- OUTSIDE RECORDS SUMMARY | 2021-01-08 20:12 | CCD ---
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 Active confirmed 966038058 Problem Mixed hyperlipidemia E78.2 Active confirmed 302872213 Problem Macrocytosis D75.89 Active confirmed 5338467 00 Problem Vitreous hemorrhage, left eye H43.12 Active confirm ed 67717664 Problem Renovascular hypertension I15.0 Active confirmed 960325754 Problem Gait instability R26.81 Active confirmed 226 41560 Problem Depression, unspecified depression type F32.9 Active confirmed 42044445 Problem End stage renal disease on dialysis due to type 1 diabetes mellitus E10.22 Active confirmed 52529255519527 Problem Abnormal uterine bleeding (AUB) N93.9 Active confirmed 74436372412533 Problem Type 1 diabetes mellitus with vitreous hemorrhage of r ight eye E10.39 Active confirmed 42202219 Problem Vitreous hemorrhage of right eye H43.11 Active conf irmed 03840349 Problem Dysthymia F34.1 Active confirmed 36312117 Problem Iron deficiency anemia, unspecified D50.9 Acti ve confirmed 14105578 Problem Non-seasonal allergic rhinitis due to other allergic demi er J30.89 Active confirmed 54015345 Problem Chronic cough R05 Active confirmed 757466 08 Problem Dependence on renal dialysis Z99.2 Active confirme d 248669694 Problem 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 severity L97.429 Active confirmed 521923926 Problem Type 1 diabetes mellitus with foot ulcer E10.621 Active confirmed 69568854662920 Problem 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 Active confirmed 047425166 Problem Alopecia L65.9 Active confirmed 54557108 Problem Diabetes with renal manifest ations, type I [juvenile type], uncontrolled 250.43 Active confirmed 380663123 Problem Diabetic retinopathy associa alba with type 1 diabetes mellitus, macular edema presence unspecified, unspecified retinopathy severity E10.31 9 Active confirmed Problem End stage renal disease N18.6 Active confirmed 20622921 Problem Type 1 diabetes mellitus with diabetic chronic kidney disease E10.22 Active confirmed 45440255 Problem Hypertensive chronic kidney disease with stage 5 chronic kidney disease or end stage renal disease I12.0 Active confirmed 129 533499910768 Problem Vasomotor rhinitis J30.0 Active confirmed 8 208424 Problem Non-pressure chronic 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 Code:[address]-28) RASH Drug Allergy Active Pollen Pollen nasal congestion, cough Drug Allergy Active ENCOUNTERS from 1976 to 2020-12-18 Encounter Location Date Provider Diagnosis [facility] [address] [phone] [place] [address] Nov, Papito Sebastian IMMUNIZATIONS Vaccine Route Administration Date Status Influenza [...] Education Language: Question Answer Notes Languages spoken: Luxembourgish Gnosticist: Question Answer Notes Gnosticist 33 None Sexual Hx: Question Answer Notes [...] for 30 day(s) Active Vitamin D (Ergocalciferol) 63563 UNIT 1 capsule Orally once a week Active HumuLIN N 100 UNIT/ML take 15 units in the morning , 10 units at night Subcutaneous twice daily as directed Oct, Active Dificid 200 MG 1 tablet Orally Twice a day for 10 day(s) 2 June, Unknown PROCEDURES No Information RESULTS No Results REASON FOR VISIT follow up MEDICAL (GENERAL) HISTORY Type Description Date Medical [...] joes - cardio 06/2018 Hospitalization History STOMACH FLU-[facility] 2019 Hospitalization History INFECTION-[facility] 2020 Hospitalization History [facility] admitted 08/25/2020 Hospitalization History food poinoning 08/18 Goals Section No Information Health Concerns No Information MEDICAL EQUIPMENT No Information MENTAL STATUS No Information FUNCTIONAL STATUS No Information ASSESSMENTS No Information PLAN OF TREATMENT No Information Insurance Providers Payer Name Payer Address Payer Phone Insured Name Patient Relati onship to Insured Coverage Start Date Coverage End Date MEDICARE Part A and B [address] [facility] [address] [phone] KAYLEE NYE self BC BS [place] [facility] [address] [place] [address] [place]
--- OUTSIDE RECORDS SUMMARY | 2021-01-08 20:12 | CCD ---
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 Active confirmed 546326220 Problem Mixed hyperlipidemia E78.2 Active confirmed 774308555 Problem Macrocytosis D75.89 Active confirmed 6177421 00 Problem Vitreous hemorrhage, left eye H43.12 Active confirm ed 37100317 Problem Renovascular hypertension I15.0 Active confirmed 245404474 Problem Gait instability R26.81 Active confirmed 226 33869 Problem Depression, unspecified depression type F32.9 Active confirmed 66165603 Problem End stage renal disease on dialysis due to type 1 diabetes mellitus E10.22 Active confirmed 91582723073377 Problem Abnormal uterine bleeding (AUB) N93.9 Active confirmed 21351329764397 Problem Type 1 diabetes mellitus with vitreous hemorrhage of r ight eye E10.39 Active confirmed 04777562 Problem Vitreous hemorrhage of right eye H43.11 Active conf irmed 44947975 Problem Dysthymia F34.1 Active confirmed 22072231 Problem Iron deficiency anemia, unspecified D50.9 Acti ve confirmed 52890315 Problem Non-seasonal allergic rhinitis due to other allergic demi er J30.89 Active confirmed 40533342 Problem Chronic cough R05 Active confirmed 691147 08 Problem Dependence on renal dialysis Z99.2 Active confirme d 163909621 Problem 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 severity L97.429 Active confirmed 524878513 Problem Type 1 diabetes mellitus with foot ulcer E10.621 Active confirmed 55896434579832 Problem 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 Active confirmed 201118395 Problem Alopecia L65.9 Active confirmed 74882733 Problem Diabetes with renal manifest ations, type I [juvenile type], uncontrolled 250.43 Active confirmed 850046756 Problem Diabetic retinopathy associa alba with type 1 diabetes mellitus, macular edema presence unspecified, unspecified retinopathy severity E10.31 9 Active confirmed Problem End stage renal disease N18.6 Active confirmed 96002640 Problem Type 1 diabetes mellitus with diabetic chronic kidney disease E10.22 Active confirmed 47006524 Problem Hypertensive chronic kidney disease with stage 5 chronic kidney disease or end stage renal disease I12.0 Active confirmed 129 306583816626 Problem Vasomotor rhinitis J30.0 Active confirmed 8 301926 Problem Non-pressure chronic ulcer o f other part of left foot with fat layer exposed L97.522 Active confirmed 148250212 ALLERGIES Allergen (clinical drug ingredient) Drug/Non Drug Allergy do cumented on EMR Reaction Allergy Type Onset Date Status ciprofloxacin Cipro([facility] Code:[address]-46) RASH Drug Allergy Active Seasonal nasal congestion, cough Non Drug Allergy Active ENCOUNTERS from 1976 to 2020-11-04 Encounter Location Date Provider Diagnosis [facility] W[facility] Care [address] [phone] [place] [address] Oct, Jannette Fullerton Type 1 diabetes mellitus wit h foot [...] Education Language: Question Answer Notes Languages spoken: Kazakh Temple: Question Answer Notes Temple 33 None Sexual Hx: Question Answer Notes [...] No Information VITAL SIGNS Weight 147 lbs Oct, Weight-kg 66.68 kg Oct, Height 64 in Oct, BMI 25.23 kg/m2 Oct, Heart Rate 82 /min Oct, Respiratory Rate 16 /min Oct, Temperature 96.4 degrees Fahrenheit Oct, Oximetry 100 Oct, Blood pressure systolic 208 mm Hg Oct, Blood pressure diastolic 89 mm Hg Oct, MEDICATIONS Medication SIG (Take, Route, Frequency, Duration) Notes Start Da te End Date Status Orthotics Bilateral Custom molded articulating AFOs 2017 Active Wheelchair - as directed as [...] as directed as directed for 99 months 3 Aug, 2017 Active Calcitriol 0.5 MCG 1 capsule Orally three times a week on dialysis days, T, Th, Sat June, Not-Taking Lanthanum Carbonate 1000 MG 1 tablet with meals Orally Three times a day Not-Taking Losartan Potassium 100 MG 1 tablet Orally Once a day for 30 day(s) Active Vitamin D (Ergocalciferol) 50275 UNIT 1 capsule Orally once a week Active HumuLIN N 100 UNIT/ML take 15 units in the morning , 10 units at night Subcutaneous twice daily as directed Oct, Active Dificid 200 MG 1 tablet Orally Twice a day for 10 day(s) 2 2 Jun, 2019 Unknown PROCEDURES from 1976 to 2020-11-04 Procedure Date Ordered Result Body Site Medication: 4% Lidocaine topical cream (Anecream) 5gm 2020 N/A RESULTS No Results REASON FOR VISIT [...] t ransplant 2016 Hospitalization History flu - [facility] 06/[address] [facility] 06/2018 Hospitalization History STOMACH FLU-[facility] 2019 Hospitalization History INFECTION-[facility] 2020 Hospitalization History [facility] admitted 08/25/2020 Hospitalization History food poinoning 08/18 Goals Section No Information Health Concerns No Information MEDICAL EQUIPMENT No Information MENTAL STATUS No Information FUNCTIONAL STATUS No Information ASSESSMENTS Encounter Date Diagnosis Assessment Notes Treatment Notes Treatm ent Clinical Notes Oct, Type 1 diabetes mellitus with foot ulcer (ICD-10 - E10.621) Dressing changes 3x a week. The dressing should follow those documented in the procedure note. Patient was again instructed to get heel float boots to protect her heels. Oct, Non-pressure chronic ulcer o f left heel [...] Appt Details 2 Weeks Reason: Provider Name:Jannette Núñez, 11-14 01:00:00 PM, [address], , [place], [address], Insurance Providers Payer Name Payer Address Payer Phone Insured Name Patient Relati onship to Insured Coverage Start Date Coverage End Date MEDICARE Part A and B [address] [facility] [address] [phone] KAYLEE [place]E [place] [address] [address] [facility] [address] [place]
--- OUTSIDE RECORDS SUMMARY | 2021-01-08 20:12 | CCD ---
Author Author [facility] Organization [facility] Address Unknown Phone Unavailable Care Team Providers Care Director Business Name Role Phone BROOKE LR MD Unavailable Unavailable BROOKE LR MD Unavailable Unavailable BROOKE LR MD Unavailable Unavailable BROOKE LR MD Unavailable Unavailable NILSON RG MD Unavailable Unavailable NILSON RG MD Unavailable Unavailable NILSON RG MD Unavailable Unavailable NILSON RG MD Unavailable Unavailable PODOLAK, A TASHA Unavailable Unavailable PODOLAK, A TASHA Unavailable Unavailable PODOLAK, A TASHA Unavailable Unavailable PODOLAK, A TASHA Unavailable Unavailable Brandy Ray CRYSTALIZER Unavailable Unavailable Brandy Ray CRYSTALIZER Unavailable Unavailable Brandy Ray CRYSTALIZER Unavailable Unavailable Brandy Ray CRYSTALIZER Unavailable Unavailable Thankachan, Reeba CRYSTALIZER Unavailable Unavailable Thankachan, Reeba CRYSTALIZER Unavailable Unavailable Thankachan, Reeba CRYSTALIZER Unavailable Unavailable Thankachan, Reeba CRYSTALIZER Unavailable Unavailable Thankachan, Reeba CRYSTALIZER Unavailable Unavailable Thankachan, Reeba CRYSTALIZER Unavailable Unavailable Thankachan, Reeba CRYSTALIZER Unavailable Unavailable Thankachan, Reeba CRYSTALIZER Unavailable Unavailable Thankachan, Reeba CRYSTALIZER Unavailable Unavailable Thankachan, Reeba CRYSTALIZER Unavailable Unavailable Thankachan, Reeba CRYSTALIZER Unavailable Unavailable Thankachan, Reeba CRYSTALIZER Unavailable Unavailable Thankachan, Reeba CRYSTALIZER Unavailable Unavailable Thankachan, Reeba CRYSTALIZER Unavailable Unavailable Thankachan, Reeba CRYSTALIZER Unavailable Unavailable Thankachan, Reeba CRYSTALIZER Unavailable Unavailable Thankachan, Reeba CRYSTALIZER Unavailable Unavailable Thankachan, Reeba CRYSTALIZER Unavailable Unavailable Thankachan, Reeba CRYSTALIZER Unavailable Unavailable Thankachan, Reeba CRYSTALIZER Unavailable Unavailable Thankachan, Reeba CRYSTALIZER Unavailable Unavailable Thankachan, Reeba CRYSTALIZER Unavailable Unavailable Thankachan, Reeba CRYSTALIZER Unavailable Unavailable Thankachan, Reeba CRYSTALIZER Unavailable Unavailable Thankachan, Reeba CRYSTALIZER Unavailable Unavailable Thankachan, Reeba CRYSTALIZER Unavailable Unavailable Thankachan, Reeba CRYSTALIZER Unavailable Unavailable Thankachan, Reeba CRYSTALIZER Unavailable Unavailable Thankachan, Reeba CRYSTALIZER Unavailable Unavailable Thankachan, Reeba CRYSTALIZER Unavailable Unavailable Thankachan, Reeba CRYSTALIZER Unavailable Unavailable Thankachan, Reeba CRYSTALIZER Unavailable Unavailable Thankachan, Reeba CRYSTALIZER Unavailable Unavailable Thankachan, Reeba CRYSTALIZER Unavailable Unavailable Thankachan, Reeba CRYSTALIZER Unavailable Unavailable Thankachan, Reeba CRYSTALIZER Unavailable Unavailable Thankachan, Reeba CRYSTALIZER Unavailable Unavailable Thankachan, Reeba CRYSTALIZER Unavailable Unavailable Thankachan, Reeba CRYSTALIZER Unavailable Unavailable Thankachan, Reeba CRYSTALIZER Unavailable Unavailable Thankachan, Reeba CRYSTALIZER Unavailable Unavailable Thankachan, Reeba CRYSTALIZER Unavailable Unavailable Thankachan, Reeba CRYSTALIZER Unavailable Unavailable Thankachan, Reeba CRYSTALIZER Unavailable Unavailable ANTECOL, Denis FLOYD MD Unavailable Unavailable ANTECOLDenis MD Unavailable Unavailable ANTECOL, Denis FLOYD MD Unavailable Unavailable ANTECOL, Denis FLOYD MD Unavailable Unavailable ANTECOL, Denis FLOYD MD Unavailable Unavailable ANTECOL, Denis FLOYD MD Unavailable Unavailable ANTECOL, Denis FLOYD MD Unavailable Unavailable ANTECOL, Denis FLOYD MD Unavailable Unavailable ANTECOL, Denis FLOYD MD Unavailable Unavailable ANTECOLDenis MD Unavailable Unavailable ANTECOL, Denis FLOYD MD Unavailable Unavailable ANTECOL, Denis FLOYD MD Unavailable Unavailable ANTECOLDenis MD Unavailable Unavailable ANTECOL, Denis FLOYD MD Unavailable Unavailable ANTECOL, Denis FLOYD MD Unavailable Unavailable ANTECOL, Denis FLOYD MD Unavailable Unavailable ANTECOL, Denis FLOYD MD Unavailable Unavailable ANTECOL, Denis FLOYD MD Unavailable Unavailable ANTECOL, Denis FLOYD MD Unavailable Unavailable ANTECOL, Denis FLOYD MD Unavailable Unavailable ANTECOL, Denis FLOYD MD Unavailable Unavailable ANTECOL, Denis FLOYD MD Unavailable Unavailable ANTECOL, Denis FLOYD MD Unavailable Unavailable ANTECOL, Denis FLOYD MD Unavailable Unavailable ANTECOL, Denis FLOYD MD Unavailable Unavailable ANTECOL, Denis FLOYD MD Unavailable Unavailable ANTECOL, Denis FLOYD MD Unavailable Unavailable ANTECOL, Denis FLOYD MD Unavailable Unavailable ANTECOL, Denis FLOYD MD Unavailable Unavailable ANTECOL, Denis FLOYD MD Unavailable Unavailable ANTECOL, Denis FLOYD MD Unavailable Unavailable ANTECOL, Denis FLOYD MD Unavailable Unavailable ANTECOL, Denis FLOYD MD Unavailable Unavailable ANTECOL, Denis FLOYD MD Unavailable Unavailable ANTECOL, Denis FLOYD MD Unavailable Unavailable ANTECOL, Denis FLOYD MD Unavailable Unavailable ANTECOL, Denis FLOYD MD Unavailable Unavailable ANTECOL, Denis FLOYD MD Unavailable Unavailable ANTECOL, Denis FLOYD MD Unavailable Unavailable ANTECOL, Denis FLOYD MD Unavailable Unavailable ANTECOL, Denis FLOYD MD Unavailable Unavailable ANTECOL, Denis FLOYD MD Unavailable Unavailable ANTECOL, Denis FLOYD MD Unavailable Unavailable ANTECOL, Denis FLOYD MD Unavailable Unavailable ANTECOL, Denis FLOYD MD Unavailable Unavailable ANTECOL, Denis FLOYD MD Unavailable Unavailable ANTECOL, Denis FLOYD MD Unavailable Unavailable ANTECOL, Denis FLOYD MD Unavailable Unavailable ANTECOL, Denis FLOYD MD Unavailable Unavailable ANTECOL, Denis FLOYD MD Unavailable Unavailable ANTECOL, Denis FLOYD MD Unavailable Unavailable ANTECOL, Denis FLOYD MD Unavailable Unavailable ANTECOL, Denis FLOYD MD Unavailable Unavailable ANTECOL, Denis FLOYD MD Unavailable Unavailable Zachary ZAMARRIPA Unavailable Unavailable Paramjit Ndiaye MD Unavailable Unavailable Paramjit Ndiaye MD Unavailable Unavailable Paramjit Ndiaye MD Unavailable Unavailable Paramjit Ndiaye MD Unavailable Unavailable Paramjit Ndiaye MD Unavailable Unavailable Paramjit Ndiaye MD Unavailable Unavailable Paramjit Ndiaye MD Unavailable Unavailable Paramjit Ndiaye MD Unavailable Unavailable Paramjit Ndiaye MD Unavailable Unavailable Paramjit Ndiaye MD Unavailable Unavailable Paramjit Ndiaye MD Unavailable Unavailable Paramjit Ndiaye MD Unavailable Unavailable Paramjit Ndiaye MD Unavailable Unavailable Paramjit Ndiaye MD Unavailable Unavailable Paramjit Ndiaye MD Unavailable Unavailable Paramjit Ndiaye MD Unavailable Unavailable Paramjit Ndiaye MD Unavailable Unavailable Paramjit Ndiaye MD Unavailable Unavailable Paramjit Ndiaye MD Unavailable Unavailable Paramjit Ndiaye MD Unavailable Unavailable Paramjit Ndiaye MD Unavailable Unavailable Paramjit Ndiaye MD Unavailable Unavailable Paramjit Ndiaye MD Unavailable Unavailable Paramjit Ndiaye MD Unavailable Unavailable Paramjit Ndiaye MD Unavailable Unavailable Paramjit Ndiaye MD Unavailable Unavailable Paramjit Ndiaye MD Unavailable Unavailable Paramjit Ndiaye MD Unavailable Unavailable Paramjit Ndiaye MD Unavailable Unavailable Paramjit Ndiaye MD Unavailable Unavailable Paramjit Ndiaye MD Unavailable Unavailable Paramjit Ndiaye MD Unavailable Unavailable Paramjit Ndaiye MD Unavailable Unavailable Paramjit Ndiaye MD Unavailable Unavailable Paramjit Ndiaye MD Unavailable Unavailable Paramjit Ndiaye MD Unavailable Unavailable Paramjit Ndiaye MD Unavailable Unavailable Paramjit Ndiaye MD Unavailable Unavailable Praamjit Ndiaye MD Unavailable Unavailable Paramjit Ndiaye MD Unavailable Unavailable Paramjit Ndiaye MD Unavailable Unavailable Paramjit Ndiaye MD Unavailable Unavailable Paramjit Ndiaye MD Unavailable Unavailable Paramjit Ndiaye MD Unavailable Unavailable Paramjit Ndiaye MD Unavailable Unavailable Paramjit Ndiaye MD Unavailable Unavailable Paramjit Ndiaye MD Unavailable Unavailable Paramjit Ndiaye MD Unavailable Unavailable Paramjit Ndiaye MD Unavailable Unavailable Paramjit Ndiaye MD Unavailable Unavailable Paramjit Ndiaye MD Unavailable Unavailable Paramjit Ndiaye MD Unavailable Unavailable Paramjit Ndiaye MD Unavailable Unavailable Paramjit Ndiaye MD Unavailable Unavailable Paramjit Ndiaye MD Unavailable Unavailable Paramjit Ndiaye MD Unavailable Unavailable Paramjit Ndiaye MD Unavailable Unavailable Paramjit Ndiaye MD Unavailable Unavailable Paramjit Ndiaye MD Unavailable Unavailable Paramjit Ndiaye MD Unavailable Unavailable Paramjit Ndiaye MD Unavailable Unavailable Paramjit Ndiaye MD Unavailable Unavailable Paramjit Ndiaye MD Unavailable Unavailable Paramjit Ndiaye MD Unavailable Unavailable Paramjit Ndiaye MD Unavailable Unavailable Paramjit Ndiaye MD Unavailable Unavailable Paramjit Ndiaye MD Unavailable Unavailable Paramjit Ndiaye MD Unavailable Unavailable Paramjit Ndiaye MD Unavailable Unavailable Paramjit Ndiaye MD Unavailable Unavailable Paramjit Ndiaye MD Unavailable Unavailable Paramjit Ndiaye MD Unavailable Unavailable Paramjit Ndiaye MD Unavailable Unavailable Paramjit Ndiaye MD Unavailable Unavailable Paramjit Ndiaye MD Unavailable Unavailable Paramjit Ndiaye MD Unavailable Unavailable ABNER, J BRENNEN DPM PC Unavailable Unavailable ABNER, J BRENNEN DPM PC Unavailable Unavailable ABNER, J BRENNEN DPM PC Unavailable Unavailable ABNER, J BRENNEN DPM PC Unavailable Unavailable ABNER, J BRENNEN DPM PC Unavailable Unavailable ABNER, J BRENNEN [facility]PM [facility] Unavailable Unavailable ABNER, J BRENNEN DPM [facility] Unavailable Unavailable ABNER, J BRENNEN DPM PC Unavailable Unavailable ABNER, J BRENNEN DPM PC Unavailable Unavailable ABNER, J BRENNEN DPM [facility] Unavailable Unavailable ABNER, J BRENNEN DPM [facility] Unavailable Unavailable ABNER, J BRENNEN DPM [facility] Unavailable Unavailable ABNER, J BRENNEN DPM [facility] Unavailable Unavailable ABNER, J BRENNEN DPM [facility] Unavailable Unavailable ABNER, J BRENNEN DPM PC Unavailable Unavailable ABNER, J BRENNEN DPM [facility] Unavailable Unavailable ABNER, J BRENNEN DPM [facility] Unavailable Unavailable ABNER, J BRENNEN DPM [facility] Unavailable Unavailable ABNER, J BRENNEN DPM [facility] Unavailable Unavailable ABNER, J BRENNEN [facility] Unavailable Unavailable ABNER, J BRENNEN [facility] Unavailable Unavailable ABNER, J BRENNEN [facility] Unavailable Unavailable ABNER, J BRENNEN [facility] Unavailable Unavailable ABNER, J BRENNEN [facility] Unavailable Unavailable ABNER, J BRENNEN [facility] Unavailable Unavailable ABNER, J BRENNEN [facility] Unavailable Unavailable Gavi LEVINE DPM PC Unavailable Unavailable Gavi LEVINE DPM PC Unavailable Unavailable Re-disclosure Warning The records that you are about to access may contain information from federally-assisted alcohol or drug abuse programs. If such information is present, then the following federally mandated warning applies: This information has been disclosed to you from records protected by federal confidentiality rules (42 CFR part 2). The federal rules prohibit you from making any further disclosure of this information unless further disclosure is expressly permitted by the written consent of the person to whom it pertains or as otherwise permitted by 42 CFR part 2. A general authorization for the release of medical or other information is NOT sufficient for this purpose. The Federal rules restrict any use of the information to criminally investigate or prosecute any alcohol or drug abuse patient.The records that you are about to access may contain highly sensitive health information, the redisclosure of which is protected by Article 27-F of the [facility] Public Health law. If you continue you may have access to information: Regarding HIV / AIDS; Provided by facilities licensed or operated by the [facility] Office of Mental Health; or Provided by the [facility] Office for People With Developmental Disabilities. If such information is present, then the following [facility] mandated warning applies: This information has been disclosed to you from confidential records which are protected by state law. State law prohibits you from making any further disclosure of this information without the specific written consent of the person to whom it pertains, or as otherwise permitted by law. Any unauthorized further disclosure in violation of state law may result in a fine or shelter sentence or both. A general authorization for the release of medical or other information is NOT sufficient authorization for further disc losure. Encounters Encounter Providers Location Date Indications Data Source(s ) Unknown [address] [facility] [place] [address] 12/17/2020 12:00:00 AM EDT eCW1 ([facility]) Unknown [address] [facility] [place] [address] 11/28/2020 12:00:00 AM EDT eCW1 ([facility]) Unknown [address] [facility] [place] [address] 11/26/2020 12:00:00 AM EDT eCW1 ([facility]) Unknown [address] [facility] [place] [address] 11/14/2020 12:00:00 AM EDT eCW1 ([facility]) ([id number]) [facility] [employer] [place] [address] [place] [address] 2020 12:00:00 AM EDT eCW1 ([facility]) ([id number]) [facility] [employer] [place] [address] [place] [address] 10/17/2020 12:00:00 AM EDT eCW1 ([facility]) Unknown [address] [facility] [place] [address] 10/02/2020 12:00:00 AM EDT eCW1 ([facility]) ([id number]) [facility] [employer] [place] [address] [place] [address] 09/24/2020 12:00:00 AM EDT eCW1 ([facility]) Unknown [address] [facility] [place] [address] 09/15/2020 12:00:00 AM EDT eCW1 ([facility]) Outpatient [address] [facility] [place] [address] 09/12/2020 12:00:00 AM EDT eCW1 ([facility]) Unknown [address] [facility] [place] [address] 09/12/2020 12:00:00 AM EDT eCW1 ([facility]) Unknown [address] [facility] [place] [address] 09/10/2020 12:00:00 AM EDT eCW1 ([facility]) Unknown [address] [facility] [place] [address] 09/08/2020 12:00:00 AM EDT eCW1 ([facility]) ([id number]) [facility] [employer] [place] [address] [place] [phone] 08/20/2020 12:00:00 AM EDT eCW1 ([facility]) ([id number]) [facility] [employer] [place] [facility] [place] [id number] 08/13/2020 12:00:00 AM EDT eCW1 ([facility]) ([id number]) [facility] [employer] [place] [facility] [place] [address] 08/06/2020 12:00:00 AM EDT eCW1 ([facility]) ([id number]) [facility] [employer] [place] [facility] [place] [phone] 07/30/2020 12:00:00 AM EDT eCW1 ([facility]) ([id number]) [facility] [employer] [place] [facility] [place] [address] 07/23/2020 12:00:00 AM EDT eCW1 ([facility]) ([id number]) [facility] [employer] [place] [facility] [place] [address] 07/16/2020 12:00:00 AM EDT eCW1 ([facility]) Unknown [address] [place] [address], [facility] [address] 07/14/2020 12:00:00 AM EDT eCW1 ([facility]) ([id number]) [employer] [place] [address] [place] [phone] 07/09/2020 12:00:00 AM EDT eCW1 ([facility]) Unknown [facility] [address] 07/03/2020 12:00:00 AM EDT eCW1 ([facility]) ([id number]) New Patient [address] [place] [phone] 07/02/2020 12:00:00 AM EDT eCW1 ([facility]) Unknown [facility] [address] 06/19/2020 12:00:00 AM EDT eCW1 ([facility]) Outpatient Attender: BRENNEN LEVINE DPM PC 05/28/2020 12:52:00 PM EDT - 05/28/2020 12:52:00 PM EDT [facility] Outpatient Attender: RITA ZAMARRIPA [id number] 05/15/2020 04:42:29 PM EDT [facility] Outpatient Attender: BROOKE LR MD [id number] 05/14/2020 12:00:00 AM EDT - 05/14/2020 02:04:10 PM EDT Encounter for other preprocedural examination [facility] Encounter for other preprocedural examin ation Outpatient Attender: Brandy Ray NP [id number] 12:00:00 AM EST - 04/23/2020 12:20:35 [facility] Attender: TASHA COLUNGA [id number] 04/23/19 12:00:00 AM EST - 04/23/2020 12:20:23 PM [facility] Inpatient Attender: Adebayo Velasco mitter: Adebayo Ndiaye MDReferrer: NILSON RG MD ES1-OR 04/11/2020 09:05:55 AM EST - 04/18/2020 07:04:00 PM EST [facility] Patient discharged. Outpatient Attender: BRENNEN ESCALERA 03/19/2020 01:00:00 PM EST - 03/19/2020 01:00:00 PM EST [facility] Outpatient Attender: RITA ZAMARRIPA [id number] 03/18/2020 12:00:00 AM [facility] Outpatient Attender: MARIEL YAN MD Main Office 03/07/2020 10:00:00 AM EST [facility] ([facility] Outpatient Attender: Brandy Ray NP 03/03/2020 12:00: 00 AM [facility] Outpatient Attender: Adebayo Ndiaye MDReferrer: Adebayo wallace MD [facility] 02/26/2020 09:33:34 AM EST - 02/26/2020 10:45:12 AM EST [facility] Outpatient Referrer: Adebayo Ndiaye MD MOB-MOB.PAT 02/22 08:32:13 AM EST - 02/23/2020 08:32:17 AM [facility] Inpatient Attender: Adebayo Ndiaye MDAdmitter: Adebayo wallace MD [email or web address].PERIOP 02/19/2020 12:36:52 PM EST [facility] Outpatient 02/13/2020 12:00:00 AM [facility] Unknown [address] [facility] [place] [address] 12/27/2019 12:00:00 AM EDT eCW1 ([facility]) Outpatient Attender: BRENNEN LEVINE DPM PC 12/26/2019 03:30:00 PM EDT - 12/26/2019 03:30:00 PM EDT [facility] Outpatient Attender: BRENNEN LEVINE DPM PC 12/12/2019 03:39:00 PM EDT - 12/12/2019 03:39:00 PM EDT [facility] Immunizations Vaccine Date Status Description Data Source(s) COVID-19 VACCINE Moderna 06/19/2020 12:00:00 AM EDT completed [place] Vaccine Series Complete: YESThis Data wa s Submitted to [facility] Via [employer]. COVID-19 VACCINE Moderna 06/19/2020 12:00:00 AM EDT completed [place] Vaccine Series Complete: YESThis Data wa s Submitted to [facility] Via [employer]. COVID-19 VACCINE Moderna 05/27/2020 12:00:00 AM EDT completed [place] Vaccine Series Complete: NOThis Data was Submitted to [facility] Via [employer]. Medications Medication Brand Name Start Date Product Form Dose Route Admi nistrative Instructions Pharmacy Instructions Status Indications Reaction Description Data Source(s) Fluconazole 150 MG Oral Tablet Fluconazole 150 MG 09/12/2020 12:00: 00 AM EDT 1.0 {tablet} active Fluconazole 150 MG eCW1 ([facility]) Fluconazole 150 MG Oral Tablet Fluconazole 150 MG 09/12/2020 12:00: 00 AM EDT 1.0 {tablet} active Fluconazole 150 MG eCW1 ([facility]) Fluconazole 150 MG Oral Tablet Fluconazole 150 MG 09/12/2020 12:00: 00 AM EDT 1.0 {tablet} active Fluconazole 150 MG eCW1 ([facility]) Fluconazole 150 MG Oral Tablet Fluconazole 150 MG 09/12/2020 12:00: 00 AM EDT 1.0 {tablet} active Fluconazole 150 MG eCW1 ([facility]) Fluconazole 150 MG Oral Tablet Fluconazole 150 MG 09/12/2020 12:00: 00 AM EDT 1.0 {tablet} active Fluconazole 150 MG eCW1 ([facility]) Fluconazole 150 MG Oral Tablet Fluconazole 150 MG 09/12/2020 12:00: 00 AM EDT 1.0 {tablet} active Fluconazole 150 MG eCW1 ([facility]) Fluconazole 150 MG Oral Tablet Fluconazole 150 MG 09/12/2020 12:00: 00 AM EDT 1.0 {tablet} active Fluconazole 150 MG eCW1 ([facility]) Fluconazole 150 MG Oral Tablet Fluconazole 150 MG 09/12/2020 12:00: 00 AM EDT 1.0 {tablet} active Fluconazole 150 MG eCW1 ([facility]) Fluconazole 150 MG Oral Tablet Fluconazole 150 MG 09/12/2020 12:00: 00 AM EDT 1.0 {tablet} active Fluconazole 150 MG eCW1 ([facility]) Fluconazole 150 MG Oral Tablet Fluconazole 150 MG 09/12/2020 12:00: 00 AM EDT 1.0 {tablet} active Fluconazole 150 MG eCW1 ([facility]) Fluconazole 150 MG Oral Tablet Fluconazole 150 MG 09/12/2020 12:00: 00 AM EDT 1.0 {tablet} active Fluconazole 150 MG eCW1 ([facility]) Losartan Potassium 100 MG Oral Tablet Losartan Potassium 12:00:00 AM EST ORAL active [facility] Losartan Potassium 50 MG Oral Tablet Losartan Potassium 08/2020 12:00:00 AM EST ORAL completed [facility] ([facility]) Ergocalciferol 56413 UNT Oral Capsule Vitamin D (Ergocalcife rol) 03/06/2020 12:00:00 AM EST ORAL active M EDENT ([facility]) Regular Insulin, Human 100 UNT/ML Injectable Solution [Novol in R] Novolin R 03/06/2020 12:00:00 AM EST active [facility] ([facility]) Escitalopram 10 MG Oral Tablet [Lexapro] Lexapro 03/06/2020 12:00: 00 AM EST ORAL active [facility] ([facility]) ferric citrate 1000 MG Oral Tablet [Auryxia] Auryxia 08/2020 12:00:00 AM EST ORAL active [facility] ( [facility]) Parsabiv Parsabiv 03/06/2020 12:00:00 AM EST activ e MEDENT ([facility]) Veltassa Veltassa 03/06/2020 12:00:00 AM EST activ e MEDENT ([facility]) Acetaminophen 325 MG / Hydrocodone Michael trate 5 MG Oral Tablet HYDROcodone- acetaminophen (NORCO) 5-325 MG per tablet HYDROcodone-acetaminophen (NORCO) 5- 325 MG per tablet 12/12/2014 12:00:00 AM EDT 1 {tbl} Oral aborted Take 1 tablet by mouth every 4 (four) hours as needed for pain Max Daily Amount: 6 tablets [facility] Biotin 10 MG Oral Tablet Biotin (BIOTIN MAXIMUM STRENG TH) 10 MG TABS Biotin (BIOTIN MAXIMUM STRENGTH) 10 MG TABS 1 {each} Oral aborted Take 1 each by mouth daily. [facility] Aspirin 325 MG Oral Tablet aspirin 325 MG tablet aspirin 325 MG tab let 325 mg Oral aborted Take 325 mg by mouth jeremías ly. [facility] atorvastatin 10 MG Oral Tablet atorvastatin (LIPITOR) 10 MG tablet atorvastatin (LIPITOR) 10 MG tablet 10 mg Oral aborted Take 10 mg by mouth every evening. [facility] ferric citrate 1000 MG Oral Tablet Wilfred c Citrate 1 GM 210 MG(Fe) Oral Tablet (Auryxia) Ferric Citrate 1 GM 210 MG(Fe) Oral Tablet (Auryxia) Oral aborted Take by mouth [facility] lanthanum carbonate 500 MG Chewable Tabl et Lanthanum Carbonate 500 MG Oral Tablet Chewable (FOSRENOL) Lanthanum Carbonate 500 MG Oral Tablet C hewable (FOSRENOL) 500 mg Oral aborted Chew 500 mg by Mouth Two times daily with meals [facility] Norgestim-Eth Estrad Triphasic (TRI-SPRINTEC) 0.18/0.2 15/0.25 MG-35 MCG TABS 49256-211-49 1 {tbl} Oral aborted Take 1 ta blet by mouth nightly [facility] torsemide 20 MG Oral Tablet torsemide (DEMADEX) 20 MG tablet torsemide (DEMADEX) 20 MG tablet 20 mg Oral aborted Ta ke 20 mg by mouth 2 (two) times a day [facility] 1 ML heparin sodium, porcine 1000 UNT/ML Injection Heparin Sodium, Porcine, (HEPARIN, PORCINE,) 1000 UNIT/ML injection Heparin Sodium, Porcine, (HEPARIN, PORCINE,) 1000 UNIT/ML injection 2600 U abort ed 2,600 Units catheter lock venous blue port every treatment at dialysis [facility] Facility 1 ML heparin sodium, porcine 1000 UNT/ML Injection Heparin Sodium, Porcine, (HEPARIN, PORCINE,) 1000 UNIT/ML injection Heparin Sodium, Porcine, (HEPARIN, PORCINE,) 1000 UNIT/ML injection 2400 U abort ed 2,400 Units catheter lock arterial red port every treatment at dialysis [facility] Amlodipine 10 MG Oral Tablet amlodipine (NORVASC) 10 M G tablet amlodipine (NORVASC) 10 MG tablet 10 mg Oral aborted Take 10 mg by mouth daily. [facility] Insurance Providers Payer name Policy type / Coverage type Policy ID Covered libertarian ID Covered libertarian's relationship to redding Policy Redding Plan Information [facility] [id number] xxxxxxxxx [id number] [facility] [id number] [facility] [id number] [facility] [id number] Spouse [id number] MEDICARE [id number] Yusra [id number] MEDICARE [id number] xxxxxxxxxxx [id number] MEDICARE A [id number] Self [id number] MEDICARE [id number] Yusra [id number] A MEDICARE A [id number] Self [id number] A OTHER B TRANSPLANT Self TRANSPLAN T INSURANCE COVID-19 COVID Yusra C OVID INSURANCE COVID-19 [id number] xxxxx [id number] ANSI-Commercial [id number] ANSI-Medicare Part B [id number] ANSI-Medicare Part B [id number] ANSI-Commercial [id number] ANSI-Medicare Part B [id number] ANSI-Commercial [id number] ANSI-Medicare Part B [id number] ANSI-Commercial [id number] ANSI-Medicare Part B [id number] ANSI-Commercial [id number] EXCELLUS BCBS PI PI MEDICARE PI PI ANSI-Medicare Part B [id number] ANSI-Commercial [id number] ANSI-Medicare Part B [id number] ANSI-Commercial [id number] ANSI-Medicare Part B [id number] ANSI-Commercial [id number]-[id number] ANSI-Medicare Part B [id number] ANSI-Commercial [id number] MEDICAID [id number] SP [id number] MEDICAID CO [id number] MEDICAID -PHYSICIAN [id number] 1 8 [id number] ANSI-Commercial [id number] ANSI-Medicare Part B [id number] ANSI-Medicare Part B [id number] ANSI-Commercial [id number] ANSI-Commercial [id number] ANSI-Medicare Part B [id number] MEDICAID M [id number] S [id number] MEDICARE C [id number] S [id number] A [facility] OPTIONS C [id number] S [id number] ANSI-Medicare Part B [id number] ANSI-Commercial [id number] ANSI-Commercial [id number] ANSI-Medicare Part B [id number] EXCELLUS BCBS FEDERAL [id number] HU2 [id number] EXCELLUS BCBS FEDERAL [id number] HU2 [id number] UNHC COMMUNITY PLAN MCDHMO UNAVAILABLE UNAVAILABLE MEDICARE [id number] SP [id number] A EXCELLUS BLUE CROSS BLUE SHIELD HEA [id number] SP [id number] MEDICARE M [id number] S [id number] A BLUE CROSS O [id number] SP [id number] MEDICARE [id number] SP [id number] T BC BS [place] FEDERAL [id number] HU2 [id number] MEDICARE [id number] SP [id number] SELF PAY UNAVAILABLE UNAVAILA BLE BCBS FEDERAL EMPLOYEE PROGRAM [id number] HU2 [id number] BCBS FEDERAL EMPLOYEE PROGRAM [id number] HU2 [id number] EXCELLUS CNY FEP [id number] 01 [id number] MEDICARE PART A [facility] [id number] 18 [id number] MEDICARE C [id number] S [id number] BC BS [place] FEDERAL B [id number] S [id number] MEDICARE [id number] SP [id number] A BLUE CROSS BLUE SHIELD CO UNAVAILABLE 01 UNAVAILABLE BLUE CROSS BLUE SHIELD -O/P UNAVAILABLE 01 UNAVAILABLE BLUE CROSS BLUE SHIELD [facility] [id number] 01 [id number] Problems, Conditions, and Diagnoses Code Display Name Description Problem Type Effective Dates Data Source(s) 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 N18.5 Chronic kidney disease, stage 5 Chronic kidney disease , stage 5 Diagnosis 04/18/2020 12:19:00 PM EST [facility] N18.6 End stage renal disease End stage renal disease Diagno sis 04/18/2020 12:19:00 PM [facility] [id number] Pain in left foot Pain in left foot Diagnosis 03/19/2020 01:00:00 PM [facility] U07.1 COVID-19 COVID-19 Diagnosis 02/23/2020 08:32:13 AM ES T 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, type I [juvenile type], uncontrolled Problem 09/12/2020 12:00:00 AM EDT eCW1 ([facility]) L97.522 [id number] Non-pressure chronic ulcer of other part of left foot with fat layer exposed Problem 07/02/2020 12:00:00 AM EDT eCW1 ([facility]) L97.422 [id number] Non-pressure chronic ulcer of left heel and midfoot with fat layer exposed Problem 07/02/2020 12:00:00 AM EDT eCW1 ([facility]) 6208851 Old myocardial infarction Old myocardial infarction Pr oblem 03/07/2020 12:00:00 AM EST [facility] ([facility]) [id number] Paroxysmal supraventricular tachycardia Paroxysmal supraventricular tachycardia Problem 03/07/2020 12:00:00 AM EST [facility] ([facility] [id number] Essential hypertension Essential hypertension Problem 03/07/2020 12:00:00 AM EST [facility] ([facility]) [id number] Preoperative cardiovascular examination Preoperative cardiovascular examination Problem 03/07/2020 12:00:00 AM EST [facility] ([facility] [id number] Hypertensive heart disease without conge stive heart failure Hypertensive heart disease without congestive heart failure Problem 03/07/2020 12:00:00 AM EST [facility] ([facility]) [id number] Electrocardiogram abnormal Electrocardiogram abnormal Problem 03/07/2020 12:00:00 AM EST [facility] ([facility]) [id number] 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 on electrocardiogram Problem 03/07/2020 12:00:00 AM EST [facility] Surgeries/Procedures Procedure Description Date Indications Data Source(s) FINE NEEDLE ASPIRATION W/O IMAGING GUIDANCE 2020 12:00:00 AM EDT eCW1 ([facility]) FINE NEEDLE ASPIRATION W/O IMAGING GUIDANCE 10/17/2020 12:00:00 AM EDT eCW1 ([facility]) FINE NEEDLE ASPIRATION W/O IMAGING GUIDANCE 09/24/2020 12:00:00 AM EDT eCW1 ([facility]) FINE NEEDLE ASPIRATION W/O IMAGING GUIDANCE 08/20/2020 12:00:00 AM EDT eCW1 ([facility]) FINE NEEDLE ASPIRATION W/O IMAGING GUIDANCE 08/13/2020 12:00:00 AM EDT eCW1 ([facility]) Medication: Silver Nitrate Stick topically 08/13/2020 12:00:00 AM EDT eCW1 ([facility]) FINE NEEDLE ASPIRATION W/O IMAGING GUIDANCE 08/06/2020 12:00:00 AM EDT eCW1 ([facility]) FINE NEEDLE ASPIRATION W/O IMAGING GUIDANCE 07/30/2020 12:00:00 AM EDT eCW1 ([facility]) FINE NEEDLE ASPIRATION W/O IMAGING GUIDANCE 07/23/2020 12:00:00 AM EDT eCW1 ([facility]) FINE NEEDLE ASPIRATION W/O IMAGING GUIDANCE 07/16/2020 12:00:00 AM EDT eCW1 ([facility]) Medication: Santyl 250unit/G ointment to wound bed 07/16/2020 12:00:00 AM EDT eCW1 ([facility]) FINE NEEDLE ASPIRATION W/O IMAGING GUIDANCE 07/09/2020 12:00:00 AM EDT eCW1 ([facility]) FINE NEEDLE ASPIRATION W/O IMAGING GUIDANCE 07/02/2020 12:00:00 AM EDT eCW1 ([facility]) Medication: 2% Lidocaine intradermal 07/02/2020 12:00: 00 AM EDT eCW1 ([facility]) Medication: Santyl 250unit/G ointment to wound bed 07/02/2020 12:00:00 AM EDT eCW1 ([facility]) Medication: Silver Nitrate Stick topically 07/02/2020 12:00:00 AM EDT eCW1 ([facility]) Revise Arteriovenous Fistula 04/18/2020 12:00:00 AM ES T ADI ([facility]) Pare Hyperkeratotic Lesion, 2-4 03/19/2020 12:00:00 AM EST [facility] ([facility]) Debridement Nails Any Method 6 Or More 03/19/2020 12:0 0:00 AM EST [facility] ([facility]) ECG ROUTINE ECG W/LEAST 12 LDS W/I&R 03/07/2020 12:00: 00 AM EST [facility] ([facility]) Arterial Pressure Waveform Analysis For Assessment Of Centra l Art 03/07/2020 12:00:00 AM EST [facility] ([facility]) ECG ROUTINE ECG W/LEAST 12 LDS TRCG ONLY W/O I&R <td>E CG 12- LEAD</td><td>Routine</td><td>02/26/2020 10:38 AM EST</td><td> End stage renal disease</td><td></td> 02/26/2020 03:38:13 PM EST End stage renal disease [facility] End stage renal disease HEMOGLOBIN GLYCOSYLATED A1C <td>HEMOGLOBIN A1C</td><td>Routine</td><td>02/26/2020 10:30 AM EST</td><td> End stage renal disease</td><td> </td> 02/26/2020 03:30:00 PM EST End stage renal disease [facility] End stage renal disease BLOOD COUNT COMPLETE AUTOMATED <td>CBC</td><td>Routine </td><td>02/26/2020 10:00 AM EST</td><td> End stage renal disease</td><td> </td> 02/26/2020 03:00:00 PM EST End stage renal disease [facility] End stage renal disease BASIC METABOLIC PANEL CALCIUM TOTAL <td>BASIC METABOLI C PANEL</td><td>Routine</td><td>02/26/2020 10:00 AM EST</td><td> End stage renal disease</td><td> </td> 02/26/2020 03:00:00 PM EST End stage renal disease [facility] End stage renal disease Pare Hyperkeratotic Lesion, 2-4 12/12/2019 12:00:00 AM EDT [facility] ([facility]) Debridement Nails Any Method 6 Or More 12/12/2019 12:0 0:00 AM EDT [facility] ([facility]) Results ID Date Data Source [id number] 08/26/2020 08:15:00 PM EDT [facility] Name Value Range Interpretation Code Description Data Mira rce(s) Supporting Document(s) SARS coronavirus 2 RNA [Presence] in Res piratory specimen by KENYATTA with probe detection NEGATIVE [facility] This lab was ordered by [facility] a nd reported by [facility]. ID Date Data Source [id number] 06/10/2020 12:39:00 AM EDT [facility] Name Value Range Interpretation Code Description Data Mira rce(s) Supporting Document(s) SARS-CoV-2 (COVID 19) NEGATIVE - SARS-CoV-2 (COVID19) [facility] This lab was ordered by [facility] a nd reported by [facility]. ID Date Data Source [id number] 05/15/2020 04:42:29 PM EDT [facility] Name Value Range Interpretation Code Description Data Mira rce(s) Supporting Document(s) Progress Note [facility] QVSJNr0rDrQDJzIc59/YZKkhLUHgn4UgWOlzJMd9GAjsFCLkL9RpBXR6wM3dKLA4KCwKAzTzSyPiXyO0 lbm [file] ICAgICAgICAgICAgICAgICAgICAgICAgICAgICAgIC AgICAgICAgICAgICAgICAgICAgICAgICAgICAgICAgICAgICAgICAgICAgICAgICAgICAgICAgICAgIC TgITSvNOVnUC2OMTHjIXWpRUMkZQNaIGFeKEWwZHNhRVAiNMHwHQBqRFGoACUaQCAlFCPvVJUnKSAuOE AgICAgICAgICAgICAgICAgICAgICAgICAgICAgICAg PBCtWOAaQCLrFNQaVUNwMMRsNC0GLGVjXGKbUUWqNMJhRRMjABJtYMMzAHBsSIVoJJMjGGHfIZGmWVHb ICAgICAgICAgICAgICAgICAgICAgICAgICAgICAgICAgICAgICAgICAgICAgICAgICAgICAgICAgICAg DE1STMVyQNNcOTDlJQSiGFDpNFBcWOUlAGNcIHWfRT AgICAgICAgICAgICAgICAgICAgICAgICAgICAgICAgICAgICAgICAgICAgICAgICAgICAgICAgICAgIC RzWYKnIHZpNVWrTF0CBOAnDCIvOYZjKEAeIYGfZESwKSMrADSyQXIcNEAvIRAhSZXeJHAwGBYwCXBsGJ AgICAgICAgICAgICAgICAgICAgICAgICAgICAgICAg DZGsORCtVSSfFPXkUMZmORVuZNRgRA9FUNMbOOXoVHArCTCiLFHpNPCzHVXdGUOuSDPaLUFdWQYaRNXq ICAgICAgICAgICAgICAgICAgICAgICAgICAgICAgICAgICAgICAgICAgICAgICAgICAgICAgICAgICAg KECaKN5EFYAdVHIxJUNlYBEjGRBnMECmMOQuCTBmOU AgICAgICAgICAgICAgICAgICAgICAgICAgICAgICAgICAgICAgICAgICAgICAgICAgICAgICAgICAgIC QzVLSdLLEpNZQhATUoTG7PLRGmLKMhCVQvDQJrTVYyBTQuUUEfLLMlXWOyJYCjAPCkSBZzDREyOHXfEK AgICAgICAgICAgICAgICAgICAgICAgICAgICAgICAg MVCaFOJtIENhTDCeQHOvUGVhTGDmLUFcUC3GPHBmJDBpJYCwNCYfBWKiPYMeFVCpHCWmRLVvDECgYIJo ICAgICAgICAgICAgICAgICAgICAgICAgICAgICAgICAgICAgICAgICAgICAgICAgICAgICAgICAgICAg EDVwQFEbDJ8IVKAwJNAkOGZaMDIeMGMaAWPiDKRuEI AgICAgICAgICAgICAgICAgICAgICAgICAgICAgICAgICAgICAgICAgICAgICAgICAgICAgICAgICAgIC ThLJHzRIBmFGDoDJIoETBqNS6RDB92cWPhc6F9QLXbFM3keln/Bi6PYVpzpyVkhMMqJF7UHiDrGW1qex 5YGrIaPF6knu6QFWlMQfKqM8G9bOHiNIEwVGKZGdEo C43mALzbQn73OGcnBQIyGiSnMDr0Da2SWoOhL8rnLMYuRwS8YYCfWeReBYviQL5Og0OghHIzTMd+Pg0K NM4ss3IhCTnmGQEhRK8gmk8ZLSpCVaBqX2DtwlO6CCZcUVJfEn7ULZJpQTKybNMcBQMyPXEAPyIpW8Nn vA91OVHNCf3+REfttoTjZrgPKdPkZTXlo3SgGNl2JW 0KELBlTBe1mTJuCGYvT0Zlb9HaXp59QELzAxkcX3Iqv1EjLGIDLFnsgdSmAIwpAy8wXBYgTn3vWM4pRH PaWWZ8YdW1IDHVMC4SXOZbQZIxnKOoZHFwUDZOTI4QLAggBVK8CUPyrfYafAPwQTmkGB0YGZKzkxOtON kgMCBSDQo+Yl7TWN0kr0DnKFyxINErQV3srz2FJWdM UhDdW9Y0lVPqI7A7ILlmLy2UHNJsTGFuAHcqIKHWXWvdNU2BIC5vgfO2AH5LeNVnBZUdOWLhtYPmGHl6 R41skOPaLOkqQL2VEAR+Deyanira+Pj5GLSRrGKDsZBAsKiMdUXGXIpPuF5DpC4UMr6TeT0IsVE33mGxwhpEf VRlqDA0RDC0mCHSlDAWKZE5QtAQezT2vzpXzKHCiPO YWYxDtW20tdEDcKZAtQTL6FQDmSa0SMGViJ0XzumVycQcxzzRbPFKuACSRUM2FPDaiopDjlSKvlVdkTE 06xEvgYD0AAj2PScYuWC5xxv7UaOEeLo3EUCXfWn7HDVBeOZGwDAOdAJR3NSAuEjAkQVhmDCRnOGWaVD Z5KVXkSHVsGI7VVxLvBUGcGPm7TRPmNJYmPUPvrf0J YJNpCCBzYFV6YbRoDQOiFSTwJTlxAQBfNTHiKMC3MNSyYYYpYG1XPgTmUPPlYVU6IiYgHEToYTKpsj1N DZCuBFWqNzU5OLJgZTGzFBBgMPouBKFhCXMePbEjMBPgDPPnDV6YVeGyBFVeFYV6GrdeVEVbDLRtkd2O MYHhOXUbEHOeBCEtMWPkITUrLXnkXSLwCPL7DJO2PM HqKBXbHY9ZZoVbNOMgLYMuOklfMABuAVGwzn7QNSQuICSnWRZ7ExPkHQCuNLCbJEgeURUqVZL2SgSrHA IsWMJuSK4KWlIsYQJtADofPfceHADqUGNsqb3YOMSpUUExOmGuAbKhWOBiBXDlULgdSBSxTQX4VFn8QF DsBGWgQB4JMgYoLTNmRLy2GyKvYTHeKVJvpe0QVWEn WEKxIVJuCtSzQBBmTVHrAZrkBIWuCMH9XEMpVSYjRRItVR3JJhYmAPWrFSs3PtLrRWXdHFMcjy7ESMQk FKOcTNZ1InFkBPItAVWvAXa7vlGolSWgLKa8QM6VW4JsdxUkBeOCAb1Ix800IPLmLVYeBa9PV7hlId1s BGKuLJCUUo3VVAw5XlOfMuKoUyilNjOqNlVhOJd2CF tsHNGfCWlcFqW2KgX+LDn9IZWmOOUbUAUaKxSyIIQ8XmvkYOJiQQNcP1O6UvijOs1zIAWMFu1+DQpzdG MeyLryUUHMYrB8WMN4GKexGGDBXr0X ID Date Data Source [id number] 05/14/2020 04:47:29 PM EDT [facility] Name Value Range Interpretation Code Description Data Mira rce(s) Supporting Document(s) Progress Note [facility] OKMFEm4xLxAQLrXb10/VWTzhUFBpz1IdMEeuGXk3GUhqTUOnI7LkLYQ8jG9dMVR5SQkDSzDoBeOtPgU1 lbm [file] ICAgICAgICAgICAgICAgICAgICAgICAgICAgICAgIC AgICAgICAgICAgICAgICAgICAgICAgICAgICAgICAgICAgDQogICAgICAgICAgICAgICAgICAgICAgIC AgICAgICAgICAgICAgICAgICAgICAgICAgICAgICAgICAgICAgICAgICAgICAgICAgICAgICAgICAgIC AgICAgICAgICAgICAgICAgDQogICAgICAgICAgICAg ICAgICAgICAgICAgICAgICAgICAgICAgICAgICAgICAgICAgICAgICAgICAgICAgICAgICAgICAgICAg ICAgICAgICAgICAgICAgICAgICAgICAgICAgDQogICAgICAgICAgICAgICAgICAgICAgICAgICAgICAg ICAgICAgICAgICAgICAgICAgICAgICAgICAgICAgIC AgICAgICAgICAgICAgICAgICAgICAgICAgICAgICAgICAgICAgDQogICAgICAgICAgICAgICAgICAgIC AgICAgICAgICAgICAgICAgICAgICAgICAgICAgICAgICAgICAgICAgICAgICAgICAgICAgICAgICAgIC AgICAgICAgICAgICAgICAgICAgDQogICAgICAgICAg ICAgICAgICAgICAgICAgICAgICAgICAgICAgICAgICAgICAgICAgICAgICAgICAgICAgICAgICAgICAg ICAgICAgICAgICAgICAgICAgICAgICAgICAgICAgDQogICAgICAgICAgICAgICAgICAgICAgICAgICAg ICAgICAgICAgICAgICAgICAgICAgICAgICAgICAgIC AgICAgICAgICAgICAgICAgICAgICAgICAgICAgICAgICAgICAgICAgDQogICAgICAgICAgICAgICAgIC AgICAgICAgICAgICAgICAgICAgICAgICAgICAgICAgICAgICAgICAgICAgICAgICAgICAgICAgICAgIC AgICAgICAgICAgICAgICAgICAgICAgDQogICAgICAg ICAgICAgICAgICAgICAgICAgICAgICAgICAgICAgICAgICAgICAgICAgICAgICAgICAgICAgICAgICAg ICAgICAgICAgICAgICAgICAgICAgICAgICAgICAgICAgDQogICAgICAgICAgICAgICAgICAgICAgICAg ICAgICAgICAgICAgICAgICAgICAgICAgICAgICAgIC BbIPMlYUHrYIEkEKPzBQPsTNKwGYAyKBGwANTdNRYnKCOiNJOySKPaOWHmVCf0E4lrQIYmKMBmSI7rYE d3Jz8+XXaFWoIfOXF0ijBvrH7ZLQ8du5NwIFarSMBoy5WtGAi7BH0MKAPwRWubDT5TETslfx3UJOUcFH EtyVENn5akAkVwZUL0GDYgKhgwWF6NAHCqT5qytsTx QJSzEVOIQBusJOXJUTrsGOMJACAvOOWsDjRoIVmbRX3Sx5WogLO6LGt+Ge2OIW3nw4ShQJriYKXhLU4s ir5XAZxRVvTcU8CbfuE0GBYvDTMlQi6DADLxMFTmiUOpUoDdRUDLHoBgU2QbzS93YPVJNo4+DQplbmRv AcyLYrEvYZDjh5EhOQy1GI4OJMElOMj4uQReMPNzO3 Fxr7IwSx37UVSjLxoqMPX9qKatohGFIKtdtmvgkggdTCQrHYFuNv8zWg6yKJZcCUIrYdJhYYPSWH1RFR PtBMOkaFPpNLFyYHYEXS8VBEvfXRS4DQGbwqIhnPYsCBvwIH5FOBCsbuHzBgTuQSJKHLd+Ca7DUF0df7 ZqYOanYlIpIB6zvt5HSJaYGnNlH9B8jSGgY5F6FNqz Bb7CSYVlCVNqRpueCRLDVJmsXB8CBO1pgjK2TB3CdZJjYRMcFKRdrKZcOOq2Q60nvDKqYTafWB2VEHW+ Deyanira+Ys5AXSPzJCAlBKUkXtGbRYSANpFmO1LpY3ALn5NmN0XmKU64lZmwjoZdJJsdSV9XSB2tTXBnKGNQ WR2VvTKbrZ0pfoFhQPPjTTYHJoJaO26ymJMyNNWkRZ BrSUBsAt8UVHRtN3XphoZsfGslhqXdTNLlMWYBHO4GVYjytsPinSMtkDwiWJ07yKzmSZ8EYm8XXaKcYU 3ypi7YvMQlFm4VAWDoHX5TPWSmIFCsUKFmWSV4OXZoMqLcGCemOATuDWSpDXQ3HDLeIGEqRB6YXvBuNF WtXCMtCxMwESKfDZKvmp8YOWRpFAJ7XWS8JyLqGYMj LENcNNmgAUIzNSFyEAU5UHEdNGDuLA8DZkDmALRkOKYsBNqdRPLvMWFxvv2KFREcSFPgTcG4ZLBrDYVr QPZeZCthKXIoNUA0DdA3IMSxYNKwVO2PNjZmILToEYf1PQvuSDVpWKJtzz4ZDXEjWOJjMKLzQlCpGJVm ZJQcSVpwUODkRBYbVVMpOBWaQRGjIG4HEiRvWVGzRP PjWRQcZOGcQGPevs2YJWMrVBYmEIK4GDWhEGKmEAZhOXwpZHNmPHO2ITS4KFUbKRKvXC0HHoCkOBJzDH E1VIWhBXPjRSVnvc7EBFLoEQEfTPp9IAHkVZMwAWEvNJlxGPZdURU9KLP1HZAkQEAwIR3XVuUiIQNcPT tsJHLkMKEsPZOkro0KYATwAIOpYuJlMXCgBSJnPHRv PWdpIJIqWKD0BHutPNGnSIToBR8GTbNmTSQhJMx7QGGeOPFlMIVxfe6ATVNvWDS1KXfnBPKxNAVrKCJw TFkzFMYsGWGqDDG3ZKEiVUKgAX3ZEzJwOSLmNZP5YIJbMALjCAAdmr6SIKCtFNX1IWS6SnBdSCYaWJXd DDjmZOHdIQTcTKE7WLWfGZFzLW6YOfDkITOaHNX0AT nhZARtOPAgpi6FHLLxQZP6Ehv9HlMpPPBqHZXtEVqoRQBlNLTxBCXcYCVsLIWtQY2HCwCrNBHmVOHyVA elZYPrOIGkxh8TQSIzZFB7Jdu4ZeRvKNIgNXZuHOdiICRxXHF8YPh1IQNuWDZyQE5TXsQmQQKvPZNuFs ZsUTHuSVWyqu2DTQPxOIL8UNRjLZNoKRBdDCEcSLq7 qnCaeFIxGGi0OZ5ME8QmumHqRbDTZs2Og450LNScYGKeLw2ZX9euEu9sOFEaZAUITm9AXYd5RUNmUhN6 DhG1ISJiQqbwBaZoX7ZpMXtxFuApUob3DuC+CGfqLxEnRblbCtteVDKgJrUjZgV6MnG5RJJkMpU9TZTj Yg3nFSEOQd6+WJfgaAScbXlyTBVBUvF7RwZ4BUpaSCCOGj6G ID Date Data Source [id number] 04/25/2020 10:19:40 AM EST [facility] Name Value Range Interpretation Code Description Data Mira rce(s) Supporting Document(s) Progress Note [facility] ADTNNk6eQgZPSgAl59/ZSJeiQKIpg2MuZZjlNJa7ETjvCFJeH0MdPME0kA6wPRL1SCfSPuJlYuBnQqZ5 lbm [file] jFnKiZcGbL13NUTJps4vaNmvK/López/dIYdXt+BQ0qrPYIrjx4lPi2JsiyZOMg58Ui8JaxW6kzBq8jDFEQ [file] AgICAgICAgICAgICAgICAgICAgICAgICAgICAgICAgICAgICAgICAgICAgICAgICAgICAgICAgICAgIC YnYOTrTNBuKIVpALSnTQQsJJPuUILqMHMvHNBaQAJvDU0VVKTxOZSwDCUjYLZxVNXcYMDvMBOeDIMzOU AgICAgICAgICAgICAgICAgICAgICAgICAgICAgICAg SQWvWFByPAXhAQTuYPSbBFBoQPFoUEVkWBEuVRJkDFDuMTFxMIMaZWCpZV5OBLPwMZBuNBZeIVSeHPIl ICAgICAgICAgICAgICAgICAgICAgICAgICAgICAgICAgICAgICAgICAgICAgICAgICAgICAgICAgICAg RVAmWQPgHYEaLPLsMTBlCIJuRFRyIXXdQE7LNKVzGS AgICAgICAgICAgICAgICAgICAgICAgICAgICAgICAgICAgICAgICAgICAgICAgICAgICAgICAgICAgIC XiAWYvDATjMASmFVGrUHUxGTEdHBMkTSTbUBSfSITrAGTdNG1QVBKaVWPxZBMwVZEoUKScIAVaPNIxXN AgICAgICAgICAgICAgICAgICAgICAgICAgICAgICAg QOWmCBAdZCGnCACwKMOoICLcEGMqQOSeVRQeXUYkFICyTHFeELTgVUGfFFBnVN9CBSKqDQKhTURzJSXx ICAgICAgICAgICAgICAgICAgICAgICAgICAgICAgICAgICAgICAgICAgICAgICAgICAgICAgICAgICAg PLBmGCQvDRGtKJAgJFVoJCNjXRHsAYMcWMTcBK3YQR AgICAgICAgICAgICAgICAgICAgICAgICAgICAgICAgICAgICAgICAgICAgICAgICAgICAgICAgICAgIC VdBXVdAGKdMPHhWRDtKXCwCFSwLAAjFSApDUBwSRGhXTQySQHuBK5ISMSyWXEzYBOdHNMzBUJxXTNtQX AgICAgICAgICAgICAgICAgICAgICAgICAgICAgICAg LEJtHBAcIKMjUIKaPIJuNZArJLZeXXKmJAVaAMWqHUIeRNZdLQHwXDEkEKEfJQFpJK7TCFSnIGEvHCCv ICAgICAgICAgICAgICAgICAgICAgICAgICAgICAgICAgICAgICAgICAgICAgICAgICAgICAgICAgICAg ICAgICAgICAgICAgICAgICAgICAgICAgICAgICAgIA 0KICAgICAgICAgICAgICAgICAgICAgICAgICAgICAgICAgICAgICAgICAgICAgICAgICAgICAgICAgIC WoJEUxCQCbEFIdPDAbAVLjMWSuHJHqRRHkHATqIWMgFTNwYAUgLLVaOC5DPX82nTSfd8V7LHJgXU3yye c/Es0FTCeirqPmrQZjTC0RDiQsXN8evr1OKnElJO1l wl8CRQrCXiOuB3R8eGCeCWVoORJLApMgL77mUTbfLr02CHtaUXHeCeBjOLw5Yg1JOuAxV2fzPXUfOmA5 LYSlFnV8ECJlLgM2XGJxKkNlMARnGDIlQMDdLQBYVEB9QUPwItBmYdMwKJMtLOesWDIPOW1TBjDhE0Nz gR66VIsBLb4+OPkcvmGaAarUZlD7ZYDqz0DrDQv0JR 3IQBSoVvqgw9BnXfqqKAOZYVjsFB8LJOK8GPJ9WETxRm2KNKZeQ509krAdDO5KDa7FCvQbUL4nxz7DYz xwYVZdJpsETiv4MCjfAK4MiZTnVOwDej1mmrZsinMWp6JtrmWapVHTKKVpMRENtLFau5WzyOIfIGLFLS HgxHIvDjK8PrUgXiCoHJV7GwPrRX9xVNacIV9ZJGY8 TTppBDEpLUSiU3vCPyKaDAPxWCIxmNokNR2ZKvMsB0PyzaAvlKQgKzLfCKJGSt9+DQplbmRvYmoNCjM4 VRAmw3PlMOq6EU0TYDJbTRtdVY6QASXdqZ9aASkjBS6WYhInBKUjAKJEOlHuJ67cmSDhOUa8R1DjTaXs ZGVkRmlsZXMgPDwvTmFtZXMgWyBdDQogID4+ID4+DQ alPL6AAOpnmgQqHSQjXa5NCTQmFXTiFP0xHORyUHPcT1Q6dCinRKRFPwGmI5mtdncyRE9dAUXiF921hT ntltJgYRY9NEFmIi3LNCNzXLU6IAMnbYGhTjMoUDJFIJdqST7IfXYsMCF4uR8bZInkTGJkPQWnR5eAKc GsjIkjSI11fSdwerBikXRmMNg+Sn9AHH5nj9GoUTh6 nyRiECqeIJV3LJrySFHgSNKqNDKpYUS4HZD7JAIYBgHcLNEfDXGoNVjxEEUnMQPmul8VHSRrKIQ8DOZx HeZtNFKtBWRhCHyqWZAzWSD7IZW6ALRkKARjAP0ZThGpRRUjTVZwBNfqBRFeBYTups9SBZFuOHBkHFI3 MINhMRWaTIVeIIqrKEFrHPS9MyHcLHRgGGIwLA8CYf ZfAGEsRFk9LJBlMGMvEGZpjy2GYBXmALKtBZB7DVDnXHYcSKVmBOemUCNgLFLgNiUqFTBsSGPnRY3JHy EhTXVnYCO5YjNdCODoCOLgbj6YECXbDROhPGt0FGOrIZGfAVMrRTzeSSOuFVM7QUfwZIZaGRRaZK1QJe VxTFNpGUyeDRrsYBQeEAQvmq3JFGXzXXWpHHGeEoBx VUCiJDRiLKivOSNnWYBlMfA0PMXpVCBsSM2XLfQcSYGyBcD5NCQmJOWkRVKdcm3NKLUoSTXeRMk0NHSk JHCfZJBvKIxfQEDrGVA1UFt6XCVoMNErNV3TDiFpMDJuLdJ2NxJcTPDhSLXoza9TACAjQSAeQesbNySy ASYfZEMbIEnbCFNwXIH2Iez2LVMtLADjCO4FKyFdUU HxSqh2GOPqRBNgRTZcke1WBFVwDXEnFDW4IbYnMWGmPHKtIMggUCKqWPK1ZHM3XNVoMBAxNI4OMeUiYJ JcWjytUzrzDJRmFOFxvb6NPDDiQNRbXSVpSbRiMRBpNTUaFAdoVDAhKZJzPLA0LFCqOBFdKY0AJkKwRY SvCsB9MZQyVGQaIZFmkq8LZUFmRUY4IrVgGhXjQGQx IXCaRMfqJUIpJNLxNZX3SSWsCMCxQY8HKfBaQGDhRjI3ITEnOTKuIVTxua8PVAOgQFO4QqrhNNRaBAUu DBUpLFpdIREmYHR8HIJbJYIoWBBwCA1TLdJwMHIvYpYuNYVySOZmVHOfkk1MOVSoOOB4LAusYHMtFNMt DYXwXHonTAGnNXO4ESkaSZNnVNMmWY2PVlRfIIWcDg WxHaJwDFWaDRTsaj3YTKFxEZK9SvElKNMyLHQxXNUwNGj3jhAnnQJgCMo1RC4WH5AljrBnBjbATq2Ah7 82BLK5XYDzTi8LR4rcJl1aZSSaHMXIFk5POYs6UVY1C5SfRHQ6MHT5PlD6Q7CgVoI2VPRgATW4XIYeIc E+DKg2HsftLtZ7JVK6YbpaKCzuAcAgUdtnSPG4QKU1 BpSyVI9jGTLGAc1+XMffzBLvfDjtNOYHPaT6RpM8PQcbCMJKRd9G ID Date Data Source [id number] 04/23/2020 04:15:59 PM [facility] Name Value Range Interpretation Code Description Data Mira rce(s) Supporting Document(s) [facility] [facility] CJRJNe2nWaLAIeHa23/OACmyIZAuu6GnTGvgFYo5XPixWJEcM7YkNJS1kI2oWVA6NJxCRqEyOqYcWjR1 lbm [file] oz5TTWr0vnI/CvWdt/g/Tank/0FfwNttpEwa/YjOyvSEaKvhxBAD3gIIyN/6STvkpOcxGmcg/EnG2otGB T6x1vIYfmp30c0P2vOuJ+4E9xp+KR5lY/yRXyCT/Lj+fn3Id1f/pathology collector+y2DM3SelliiSQ6kesY2wu5Pr2X [file] ID Date Data Source [id number] 04/23/2020 07:53:31 AM EST [facility] NT INFORMATIONPatient MRN Name Date of Age Gend*PT [id number] Italia Tran 1975 44 years F SDCXPT Location Admission Date/Time Visit [facility] --- --- EPI ID CSN Admitting Provider [id number] Adebayo Ndiaye MD([id number]) [place] [address] OPERATIVE REPORT OPNAME: ITALIA TRAN Waylon Riddle#: [id number] #: [id number] ADMISSION DATE: 04/18/2020OB: 1975 SEX: F PT TYPE: S SURACCT #: [id number] CARE PHYSICIAN: JACINDA MEI OF OPERATION: 1PREOPERATIVE DIAGNOSIS:Aneurysmal dilation, left arm arteriovenous fistula.POSTOPERATIVE DIAGNOSIS:Aneurysmal dilation, left arm arteriovenous fistula.PROCEDURE PERFORMED: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 Please note that there was no qualified residentavailable for the procedure.ANESTHESIA:General.ESTIMATED BLOOD LOSS:50 mL.COMPLICATIONS:None.SPECIMEN:Left arm AV fistula aneurysm.INDICATIONS:This is a 44-year-old lady with end-stage renal failure, who is beingdialyzed through a left arm AV fistula. Has 1 large and 1 small aneurysmwith skin stretching and thinning, and was planned for revision. The planwas to fix the larger aneurysm, so as to leave areas where she can beaccessed.DESCRIPTION OF PROCEDURE:After explaining the procedure to the patient, taking written consent, thepatient was taken to the operating room. Patient was placed under generalanesthesia by the Anesthesia staff. 1% lidocaine and 0.5% Marcaine wasused to localize the area. Elliptical skin incision was made over theskin, so as to remove the area that is dilated. I circumferentiallydissected the lateral area. The medial area, which had better vein wall,was left. I used a side clamp and clamped off 75% of the aneurysm, whichwas transected over the clamp. Two layers closure was done with 3-0Prolene. Hemostasis was confirmed. Multiple layer closure was done usinginterrupted 2-0 Vicryl and then 4-0 Monocryl and Dermabond. Patient had agood thrill on the fistula, had unchanged neurovascular examination, andwas brought to recovery room in stable condition. I was present throughoutthe case.LOVE BANKS/ARELY Job #: [id number] DOC #: [id number]: Consultants . Primary Care Physician . Name Value Range Interpretation Code Description Data Mira rce(s) Supporting Document(s) ID Date Data Source [id number] 04/18/2020 10:00:00 PM EST [facility] ([facility] Name Value Range Interpretation Code Description Data Mira rce(s) Supporting Document(s) Laboratory test finding (navigational concept) 250 mg/dL 70-99 [facility] PERFORMED BY [facility] CLINICAL STAFF ID Date Data Source [id number] 04/18/2020 07:34:00 PM EST [facility] ([facility]) Name Value Range Interpretation Code Description Data Mira rce(s) Supporting Document(s) Potassium [Moles/volume] in Serum or Plasma 4.0 mmol/L 3.6-5.2 [facility] ([facility]) Sodium [Moles/volume] in Serum or Plasma 136 mmol/L 136-145 [facility] ([facility]) Chloride [Moles/volume] in Serum or Plasma 92 mmol/L 100-108 [facility] ([facility]) Carbon dioxide, total [Moles/volume] in Serum or Plasma 36 mmol/L 22 -31 [facility] ([facility]) Anion gap in Serum or Plasma 8 mmol/L 7-16 [facility] ([facility]) Creatinine [Mass/volume] in Serum or Plasma 3.61 mg/dL 0.60-1.00 [facility] ([facility]) Urea nitrogen [Mass/volume] in Serum or Plasma 32 mg/dL 7-24 [facility] ([facility]) Urea nitrogen/Creatinine [Mass Ratio] in Serum or Plasma 8.9 1 0.0-20.0 [facility] ([facility]) Glucose [Mass/volume] in Serum or Plasma 339 mg/dL 70-99 [facility] ([facility]) Calcium [Mass/volume] in Serum or Plasma 8.1 mg/dL 8.4-10.2 [facility] ([facility]) Glomerular filtration rate/1.73 sq M pre dicted among non-blacks [Volume Rate/Area] in Serum or Plasma by Creatinine-based formula (MDRD) 14 [facility] ([facility]) Glomerular filtration rate/1.73 sq M pre dicted among blacks [Volume Rate/Area] in Serum or Plasma by Creatinine-based formula (MDRD) 17 [facility] ([facility]) Glomerular filtration rate/1.73 sq M pre dicted among non-blacks [Volume Rate/Area] in Serum or Plasma by Creatinine-based formula (MDRD) Laboratory test result [facility] ([facility]) -- NORMAL KIDNEY FUNCTION OR MILD DISEASE - GFR >OR= 60 CHRONIC KIDNEY DISEASE - GFR 15 - 59 RENAL FAILURE - GFR <15 Est. GFR calculation based on the MDRD study equation, which assumes a steady state for creatinine. Est. GFR should not be used for medication dosing. ID Date Data Source [id number] 04/18/2020 06:31:00 PM EST [facility] ([facility]) Name Value Range Interpretation Code Description Data Mira rce(s) Supporting Document(s) Poc Beta HCG Laboratory test result [facility] NT ([facility]) INTERPRETATION: <5.0 NEGATIVE 5.0-25.0 I NDETERMINATE >25.0 POSITIVE LEVELS BETWEEN 5 AND 25 IU/L MAY INDICATE EARLY AND SHOULD BE REPEATED ON A BLOOD SAMPLE AFTER 48 HOURS. PERFORMED BY [facility] CLINICAL STAFF ID Date Data Source [id number] 04/18/2020 06:31:00 PM EST [facility] ([facility]) Name Value Range Interpretation Code Description Data Mira rce(s) Supporting Document(s) Poc Hematocrit 37 % 36.0-47.0 [facility] ([facility]) PERFORMED BY [facility] CLINICAL STAFF ID Date Data Source [id number] 04/18/2020 06:31:00 PM EST [facility] ([facility]) Name Value Range Interpretation Code Description Data Mira rce(s) Supporting Document(s) Poc Glucose (iStat) 350 70-99 [facility] ([facility]) PERFORMED BY [facility] CLINICAL STAFF ID Date Data Source [id number] 04/18/2020 06:31:00 PM EST [facility] ([facility]) Name Value Range Interpretation Code Description Data Mira rce(s) Supporting Document(s) Potassium [Moles/volume] in Serum or Plasma 4.0 3.6-5.2 [facility] ([facility]) PERFORMED BY [facility] CLINICAL STAFF ID Date Data Source [id number] 04/18/2020 05:01:32 PM EST [facility] Name Value Range Interpretation Code Description Data Mira rce(s) Supporting Document(s) POC NOVA GLU 250 mg/dL (70-99) H [facility] PERFORMED BY [facility] CLINICAL STAFF ID Date Data Source [id number] 04/18/2020 01:36:01 PM EST [facility] Name Value Range Interpretation Code Description Data Mira rce(s) Supporting Document(s) POC NOVA GLU 334 mg/dL (70-99) H [facility] PERFORMED BY [facility] CLINICAL STAFF ID Date Data Source [id number] 04/18/2020 02:34:45 PM EST [facility] Name Value Range Interpretation Code Description Data Mira rce(s) Supporting Document(s) SODIUM 136 mmol/L (136-145) [facility] POTASSIUM 4.0 mmol/L (3.6-5.2) [facility] CHLORIDE 92 mmol/L (100-108) L [facility] CO2 36 mmol/L (22-31) H [facility] ANION GAP 8 mmol/L (7-16) [facility] UREA NITROGEN 32 mg/dL (7-24) H [facility] CREATININE 3.61 mg/dL (0.60-1.00) H [facility] BUN/CREAT RATIO 8.9 RATIO (10.0-20.0) L [facility] GLUCOSE 339 mg/dL (70-99) H [facility] CALCIUM 8.1 mg/dL (8.4-10.2) L [facility] GFR 14 ml/min/1.73m2 (>59) L [facility] GFR ( AMER) 17 ml/min/1.73m2 (>59) L [facility] GFR INTERPRETATION [facility] --NORMAL KIDNEY FUNCTION OR MILD DISEASE - GFR >OR= 60CHRONIC KIDNEY DISEASE - GFR 15 - 59RENAL FAILURE - GFR <15 Est. GFR calculation based on the MDRDstudy equation, which assumes a steadystate for creatinine. Est. GFR should notbe used for medication dosing. ID Date Data Source [id number] 04/18/2020 01:31:58 PM EST [facility] Name Value Range Interpretation Code Description Data Mira rce(s) Supporting Document(s) POC BHCG [facility] <5.0 IU/L [facility] INTERPRETATION:<5.0 NEGATIVE5.0- 25.0 INDETERMINATE>25.0 POSITIVELEVELS BETWEEN 5 AND 25 IU/L MAY INDICATEEARLY AND SHOULD BE REPEATED DAVID BLOOD SAMPLE AFTER 48 HOURS.PERFORMED BY [facility] CLINICAL STAFF ID Date Data Source [id number] 04/18/2020 01:32:08 PM EST [facility] Name Value Range Interpretation Code Description Data Mira rce(s) Supporting Document(s) POC GLU 350 MG/DL (70-99) H [facility] PERFORMED BY [facility] CLINICAL STAFF ID Date Data Source [id number] 04/18/2020 01:32:08 PM EST [facility] Name Value Range Interpretation Code Description Data Mira rce(s) Supporting Document(s) POC POTASSIUM 4.0 MMOL/L (3.6-5.2) [facility] PERFORMED BY [facility] CLINICAL STAFF ID Date Data Source [id number] 04/18/2020 01:32:08 PM EST [facility] Name Value Range Interpretation Code Description Data Mira rce(s) Supporting Document(s) POC HCT 37 % (36.0-47.0) [facility] BY [facility] CLINICAL STAFF ID Date Data Source [id number] 04/13/2020 02:00:00 PM EST [facility] Name Value Range Interpretation Code Description Data Mira rce(s) Supporting Document(s) SARS coronavirus 2 RNA Not Detected [facility] This lab was ordered by [facility] and reported by [facility]. ID Date Data Source [id number] 03/18/2020 09:35:44 AM [facility] Name Value Range Interpretation Code Description Data Mira rce(s) Supporting Document(s) Progress Note [facility] YBMTTk9bAySOHmDg66/HUApiTYMnd2GzDTctVGu3VMdaYXXjD4AuUBW9uY5rEIX8LZlGOiIrQqCqTNW0 lbm [file] HbU8GVEuAWMsYBi4LJU5FZfyHDyxOeGsAG0HLq0YHfY5NCF3aWKxZt7TNfL8IJeOSzYvEK8HEIl= ID Date Data Source [id number] 02/26/2020 11:23:01 AM EST [facility] Name Value Range Interpretation Code Description Data Mira rce(s) Supporting Document(s) EKG [facility] RMLHNt7lKlVSClQzb8FwIbBtPWZbAQ9hukt6A2S0yYByG3EgeSJzd7ruD6QlL0XpLXPxNRZYAB8JkQHi jb2 [file] J7102huUfFpNuSV///Wf/kAl1xy63188o//553/63/ /pathology collector//4f/78Rj+4IB4v5kwv/sDdi/1IVuuNYBGnMWoGD8RZHZDMMdgCFozkJinahElnkCAEejNFGvSptC HKurVETeQglERKwjVMLoFowKIMml0ARkFybNOHtucsbhfaqjc/kA1HQZH8qVrl7ZEu/PrqQWl7em5pOL nlSNBzj/z5I1f3uhYju6EZph9XD/DudTpy1624F5vK VW0v7IyKSDyQKRVsUfXxeZ7y5CrC8CNnTxq40MzErTGIOuEQwl2nqHXTSbQr/S1ATA3U3XKWLBwp3jw+ AIgQjVmMDJXXYZe5AzNVPBLTDBbqnaZJjy/+ffRzjHLUp6RWwh0QVsqfscrOnaPlv+5evI/OT5xW80My K/1I8OMC/Qz85k0dhKs1g/H+0fF4dGvqF6MxL9Jv+N KpaktxsmOmzTpNNc1haK/pke65e85jPUFvFvdH2f1ksdEFvuBkNhd22nLRAy7jHj+M3L+nBGUTI6/kKE PyiS6HZtmxOBjato59UOYGbkwJaXtlh5k7uOJVGOzNuIyLb6297wJtPEItNO/KU6NEEfigXdPA2VtU7t oOSnpvhP6+WX6P/yYEfzYJi4+MUjMLYCl2VCCBWgpd sA8G+1NDQAYFun91TsDx4kMqXGMkWMVEXiWa4+Ick0CoiDp7nsmJaLDS+TLRJnrZxGMtcy++6DcHJyB1 ZehmBCEtkS5yOXUD9GpqMbLWk7/jkM0FL667ivcLACnMSiP02a//oXkJ7Nx/lJJNJHFEFkzz7iWRCE15 4yVgONAMGHASszufgJqyu0UBt2yP79OXZOkCnNn0Un f953x33xBr7SuGkS6D8dZhoprfjOIPS8no9zXW7z3qvMf/wC0VLQrIMA4pFFVggoG4oSEMUaC2vpZsUf vTXdpBgFA9BBdwTFCTkPY8GDhSfBThgO0UngSKjZPXNfjA1zmXsaVPYOCjP3Q2FIlwdUTSmmKaHdPN9K lBpwQDFqnRJrZBTRyUYFCCQQkGJRiUYFCCQQnKJuaQ [file] yr29CVno3Bc63gfpZcuZmuIMBT/Tmvb6CQ9p1GriYR/supervisor home restoration service+kt/D9D9cbhjhO7sHGU7mH3d4G6jiAjHRF [file] Dt8Kr529RSSeWLOBLxx+GxayrZQlgUfdDOMTPNC3RINONDLTP3S= ID Date Data Source [id number] 02/26/2020 11:11:16 AM EST [facility] INFORMATIONPatient MRN Name Date of Age Gend*PT [id number] Italia Tran 1975 44 years F OPPT Location Admission Date/Time Visit ID Attending Provider --- --- --- Adebayo Ndiaye MD([id number]) EPI ID CSN Admitting Provider [id number] ---OUTPATIENT / OBSERVATIONAL SURGICAL OR INVASIVE PROCEDUREName: Italia Trna : 1975 Sex: female Care Provider: Jacinda Scherer Physician: Dr. Ndiaye.HISTORY OF PRESENT ILLNESS: 44 years old white female with a history of type 1diabetes and end-stage renal disease. She is followed by her administrative office clerk, . She is currently on dialysis and reports excessive bleeding from fistulafollowing dialysis. She underwent fistlogram which revealed two aneurysms.Patient met with Dr. Ndiaye, options were discussed, and she has now elected toundergo surgical intervention.PAST MEDICAL HISTORY:Past Medical History:Diagnosis Date Acute respiratory failure 2016 Anemia Anxiety Cardiac arrest CKD (chronic kidney disease) stage 5, GFR less than 15 ml/min Followed by Dr Aviles. Dialysis T, Th, S Depression Diabetes type I Diagnosed 1996 Diabetic retinopathy DKA (diabetic ketoacidoses) 05/12/2018 Elevated troponin I level 05/12/2018 History of transfusion Hyperlipidemia Hypertension NSTEMI (non-ST elevated myocardial infarction) 05/12/2018 Osteomyelitis 09/2013 left foot 5 th digit Peripheral neuropathy Proteinuria Secondary hyperparathyroidism Sepsis SVT (supraventricular tachycardia) Vitamin D deficiencyPAST SURGICAL HISTORY:Past Surgical History:Procedure Laterality Date AV FISTULA PLACEMENT Left 12/12/2014 Procedure: INSERT ARTERIAL VENOUS FISTULA UPPER EXTREMITY LEFT.; Surgeon:Adebayo Ndiaye MD; Location: [facility] [place]; Service: Vascular; Laterality:Left; CATARACT EXTRACTION EXTRACAPSULAR W/ INTRAOCULAR LENS IMPLANTATION 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 Authorizing Providerb complex-vitamin c-folic acid (ALTAGRACIA-SOLEDAD) TABS Take 1 tablet by mouth dailyHistorical ProviderMDescitalopram (LEXAPRO) 10 MG tablet Take 10 mg by mouth nightly HistoricalMD Carltonferric citrate 1 GM 210 MG(Fe) TABS Take 210 mg by mouth 3 (three) times a dayHistorical ProviderMDHeparin Sodium, Porcine, (HEPARIN, PORCINE,) 1000 UNIT/ML injection 2,400 Unitscatheter lock arterial red port every treatment at dialysis MD MathewHeparin Sodium, Porcine, (HEPARIN, PORCINE,) 1000 UNIT/ML injection 2,600 Unitscatheter lock venous blue port every treatment at dialysis MD MathewHeparin Sodium, Porcine, (HEPARIN, PORCINE,) 1000 UNIT/ML injection 3,000 Unitsby Intravenous Push route every treatment at dialysis (Systemic Bolus)Historical ProviderMDHeparin Sodium, Porcine, (HEPARIN, PORCINE,) 1000 UNIT/ML injection 1,000 Unitsby Intravenous Push route every treatment at dialysis (Systemic Infusion viapump) Historical ProviderMDinsulin aspart (NOVOLOG) 100 UNIT/ML injection Inject under the skin Per SlidingScale Historical Provider, insulin NPH (HUMULIN,NOVOLIN) 100 UNIT/ML injection Inject 10 Units under theskin 2 (two) times a day Historical Provider, Zarina sucrose (VENOFER) 20 MG/ML injection 50 mg by Intravenous Push route weeklyat dialysis Historical Provider, losartan (COZAAR) 50 MG tablet Take 50 mg by mouth daily HistoricalProvider, MEGethoxy PEG-Epoetin Beta (MIRCERA) 50 MCG/0.3ML SOLN 50 mcg by Intravenous Pushroute every 14 days at dialysis Historical Provider, ATAatiromer Sorbitex Calcium (VELTASSA) 8.4 g PACK Take 1 packet by mouth 3(three) times a week On Tuesday, Tuesday and Tuesday Historical Provider, vitamin D, Ergocalciferol, 00326 UNITS CAPS Take 1 capsule by mouth once a weekOn Tuesday Historical Provider, RaymLODIPine (NORVASC) 10 MG tablet Take 10 mg by mouth daily 02/26/20Historical Provider, Rayscorbic acid (VITAMIN C) 500 MG tablet Take 500 mg by mouth 2 (two) times a day02/26/20 Historical Provider, Rayspirin EC 325 MG EC tablet Take 325 mg by mouth 2 (two) times a day 02/26/20Historical Provider, Raytorvastatin (LIPITOR) 10 MG tablet Take 10 mg by mouth daily 02/26/20Historical Provider, Winsomealcitriol (ROCALTROL) 0.25 MCG capsule Take 0.25 mcg by mouth 2 times weekly and Tuesday02/26/20 Historical Provider, HYDROcodone-acetaminophen (NORCO) 5-325 MG per tablet Take 1 tablet by mouthevery 4 (four) hours as needed for pain Max Daily Amount: 6 tablets 12/13/1511/29/20 DEEPTI Lyonorgestim-Eth Estrad Triphasic (TRI- SPRINTEC) 0.18/0.215/0.25 MG-35 MCG TABSTake 1 tablet by mouth nightly 02/26/20 Historical Provider, torsemide (DEMADEX) 20 MG tablet Take 20 mg by mouth 2 (two) times a day02/26/20 Historical Provider, KYLEocial HistoryTobacco Use Smoking status: Never Smoker Smokeless tobacco: Never UsedSubstance Use Topics Alcohol use: No Drug use: NoFamily HistoryProblem Relation Age of Onset Diabetes Father Pancreatic cancer Maternal Grandmother Kidney cancer Maternal Grandfather Malig Hyperthermia Neg HxREVIEW OF SYSTEMS:Respiratory: Denies any shortness of breath, cough, yellow sputum production orwheezing.Cardiovascular: Denies any chest pain, pressure or tightness. Denies anyparoxysmal nocturnal dyspnea or orthopnea.GI: Reports intermittent nausea, diarrhea, and constipation Denies vomiting ormelena.Neurologic: Reports bilateral foot numbness. Denies any tremors or syncope.Musculoskeletal: Using wheelchair for ambulation. Reports bilateral foot dropfoot.Endocrine: She checks blood sugars 4 times daily, am fasting values range from85 to 120.Vascular: Denies any edema. Denies claudication.PHYSICAL EXAM:GENERAL: She is a 44 years old, pleasant white female, in no acute distress attime of examination. Vitals on arrival to the office are BP 154/78 (BP Location:Right upper arm, Patient Position: Sitting) | Pulse 63 | Ht 1.626 m (5' 4") |Wt 67.1 kg (148 lb) | SpO2 99% | BMI 25.40 kg/m Body mass index is 25.4kg/m ..Skin is pink, warm, and dry.NECK: She has a grade 2 airway. Neck is supple, midline, without cervicaladenopathy. No thyromegaly. No carotid bruits.MENTAL / NEUROLOGICAL STATUS: QOOt1WIMJF: Clear to auscultation. No wheezes, rhonchi or crackles.HEART: Rate rhythm regular. S1, S2. No murmur, rub or gallop.ABDOMEN: Bowel sounds positive times four. Soft, non tender. No reboundtenderness. No hepatosplenomegaly. Negative CVAT.EXTREMITIES: Pulses are symmetrical. No edema.Anesthesia complications: DeniesHA Frailty Scale :: 5/10 Mildly Frail (more evident slowing and need help inhigh order IADLs (finances, transportation, heavy housework, medications).Typically, mild frailty progressively impairs shopping and walking outsidealone, meal preparation and housework).Stop Bang Questionnaire - Total Score:ASSESSMENT: Primary Diagnosis/Indication: End-stage renal disease.PLAN: Procedure: Revision dialysis arteriovenous fistula upper extremity left.Previous documentation states history of cardiac arrest-Patient denies. Patientwith episode resulting in admission on 05/11/2018. Per 04/2018 Dr Seymour note,patient was to have stress testing completed as outpatient. Per patient thiswas not completed. Patient n ot followed by cardiology. Will need cardiac riskstratification prior to surgery.02/26/2020 11:10 Thiago Corrigan NPThis document or parts of this document, were dictated using Fantoo software. A reasonable attempt at proofreading has beenmade to minimize errors. Please call with any questions or corrections.* Name Value Range Interpretation Code Description Data Mira rce(s) Supporting Document(s) ID Date Data Source [id number] 02/26/2020 04:52:57 PM EST [facility] Name Value Range Interpretation Code Description Data Mira rce(s) Supporting Document(s) HEMOGLOBIN A1C @ 8.3 % (4.0-6.0) H [facility] Performed using Siemens [place] immunoassa y.Care must be taken when interpreting CjO7ddhiflqw in patients with a hemoglobin variantor decreased erythrocyte lifespan. Values 5.7 - 6.4% suggest prediabetes.Values >=6.5% are diagnostic for diabetes.REFERENCE: DIABETES CARE 2018: 41(S13-S27). EST AVERAGE GLUCOSE 192 mg/dL [facility] ID Date Data Source [id number] 02/26/2020 04:55:53 PM EST [facility] Name Value Range Interpretation Code Description Data Mira rce(s) Supporting Document(s) SODIUM 137 mmol/L (136-145) [facility] POTASSIUM 4.8 mmol/L (3.6-5.2) [facility] CHLORIDE 98 mmol/L (100-108) L [facility] CO2 30 mmol/L (22-31) [facility] ANION GAP 9 mmol/L (7-16) [facility] UREA NITROGEN 43 mg/dL (7-24) H [facility] CREATININE 3.66 mg/dL (0.60-1.00) H [facility] BUN/CREAT RATIO 11.7 RATIO (10.0-20.0) [facility] GLUCOSE 246 mg/dL (70-99) H [facility] CALCIUM 8.7 mg/dL (8.4-10.2) [facility] GFR 14 ml/min/1.73m2 (>59) L [facility] GFR ( AMER) 16 ml/min/1.73m2 (>59) L [facility] GFR INTERPRETATION [facility] --NORMAL KIDNEY FUNCTION OR MILD DISEASE - GFR >OR= 60CHRONIC KIDNEY DISEASE - GFR 15 - 59RENAL FAILURE - GFR <15 Est. GFR calculation based on the MDRDstudy equation, which assumes a steadystate for creatinine. Est. GFR should notbe used for medication dosing. ID Date Data Source [id number] 02/26/2020 04:26:43 PM EST [facility] Name Value Range Interpretation Code Description Data Mira rce(s) Supporting Document(s) WBC 4.0 10*3/uL (4.1-11.0) L [facility] RBC 3.02 10*6/uL (4.00-5.40) L [facility] HGB 10.6 g/dL (12.0-16.0) L [facility] HCT 32.1 % (36.0-47.0) L [facility] MCV 106.3 fL (80.0-95.0) H [facility] MCH 35.1 pg (27.0-32.0) H [facility] MCHC 33.0 g/dL (32.0-36.0) [facility] RDW 17.5 % (10.5-14.5) H [facility] PLT 139 10*3/uL (150-450) L [facility] MPV 9.2 fL (7.1-10.7) [facility] ID Date Data Source [id number] 02/23/2020 08:30:00 AM EST [facility] Name Value Range Interpretation Code Description Data Mira rce(s) Supporting Document(s) SARS coronavirus 2 RNA [facility] This lab was ordered by [facility] [employer] [facility] and reported by [employer]. ID Date Data Source [id number] 02/24/2020 02:10:47 PM EST [facility] Name Value Range Interpretation Code Description Data Mira rce(s) Supporting Document(s) SARS-COV-2 [facility] Millie mantilla [facility] Not DetectedReference range: Not Detecte d This nucleic acid amplification test was developed and its performance characteristics determined by [employer]. Nucleic acid amplification tests include PCR and TMA. This test has not been FDA cleared or approved. This test has been authorized by FDA under an Emergency Use Authorization (EUA). This test is only authorized for the duration of time the declaration that circumstances exist justifying the authorization of the emergency use of in vitro diagnostic tests for detection of SARS-CoV-2 virus and/or diagnosis of COVID-19 infection under section 564(b)(1) of the Act, 21 U.S.C. 360bbb-3(b) (1), unless the authorization is terminated or revoked sooner. When diagnostic testing is negative, the possibility of a false negative result should be considered in the context of a patient's recent exposures and the presence of clinical signs and symptoms consistent with COVID- 19. An individual without symptoms of COVID- 19 and who is not shedding SARS -CoV-2 virus would expect to have a negative (not detected) result in this assay. Performed At: [facility] [address] [place], [place] [id number] Rosaura Horner PhD Ph:[phone] Procedure Social History Code Duration Value Status Description Data Source(s ) Smoking 12/15/2020 12:00:00 AM EDT Never Smoker completed Never S moker eCW1 ([facility]) Smoking 2020 12:00:00 AM EDT Never Smoker completed Never S moker eCW1 ([facility]) Smoking 2020 12:00:00 AM EDT Never Smoker completed Never S moker eCW1 ([facility]) Smoking 2020 12:00:00 AM EDT Never Smoker completed Never S moker eCW1 ([facility]) Smoking 2020 12:00:00 AM EDT Never Smoker completed Never S moker eCW1 ([facility]) Smoking 10/17/2020 12:00:00 AM EDT Never Smoker completed Never S moker eCW1 ([facility]) Smoking 09/24/2020 12:00:00 AM EDT Never Smoker completed Never S moker eCW1 ([facility]) Smoking 09/24/2020 12:00:00 AM EDT Never Smoker completed Never S moker eCW1 ([facility]) Smoking 09/12/2020 12:00:00 AM EDT Never Smoker completed Never S moker eCW1 ([facility]) Smoking 09/12/2020 12:00:00 AM EDT Never Smoker completed Never S moker eCW1 ([facility]) Smoking 09/12/2020 12:00:00 AM EDT Never Smoker completed Never S moker eCW1 ([facility]) Smoking 08/20/2020 12:00:00 AM EDT Never Smoker completed Never S moker eCW1 ([facility]) Smoking 08/20/2020 12:00:00 AM EDT Never Smoker completed Never S moker eCW1 ([facility]) Smoking 08/20/2020 12:00:00 AM EDT Never Smoker completed Never S moker eCW1 ([facility]) Smoking 08/13/2020 12:00:00 AM EDT Never Smoker completed Never S moker eCW1 ([facility]) Smoking 08/06/2020 12:00:00 AM EDT Never Smoker completed Never S moker eCW1 ([facility]) Smoking 07/30/2020 12:00:00 AM EDT Never Smoker completed Never S moker eCW1 ([facility]) Smoking 07/23/2020 12:00:00 AM EDT Never Smoker completed Never S moker eCW1 ([facility]) Smoking 07/16/2020 12:00:00 AM EDT Never Smoker completed Never S moker eCW1 ([facility]) Smoking 07/09/2020 12:00:00 AM EDT Never Smoker completed Never S moker eCW1 ([facility]) Smoking 07/09/2020 12:00:00 AM EDT Never Smoker completed Never S moker eCW1 ([facility]) Smoking 07/02/2020 12:00:00 AM EDT Never Smoker completed Never S moker eCW1 ([facility]) Smoking 07/02/2020 12:00:00 AM EDT Never Smoker completed Never S moker eCW1 ([facility]) Smoking 03/19/2020 12:00:00 AM EST Patient has never smoked co mpleted Patient has never smoked MEDENT ([facility]) Smoking 03/07/2020 12:00:00 AM EST Patient has never smoked co mpleted Patient has never smoked MEDENT ([facility]) Alcohol intake 02/26/2020 12:00:00 AM EST No completed [facility] Smoking 02/26/2020 12:00:00 AM EST Never smoker completed Never s moker [facility] Vital Signs ID Date Data Source UNK Name Value Range Interpretation Code Description Data Source(s) Body weight 147 [lb_av] 147 [lb_av] eCW1 ([facility]) Body weight 66.68 kg 66.68 kg W1 ([facility]) Body height 64 [in_i] 64 [in_i] eCW1 ([facility]) Body mass index (BMI) [Ratio] 25.23 kg/m2 25.23 kg/m2 W1 ([facility]) Heart rate 82 /min 82 /min eCW1 ([facility]) Respiratory rate 16 /min 16 /min eCW1 ([facility]) Body temperature 96.4 [degF] 96.4 [degF] eCW1 ( [facility]) Systolic blood pressure 208 mm[Hg] 208 mm[Hg] e CW1 ([facility]) Diastolic blood pressure 89 mm[Hg] 89 mm[Hg] eCW1 ([facility]) Body height 64 [in_i] 64 [in_i] eCW1 ([facility]) Body weight 147 [lb_av] 147 [lb_av] eCW1 ([facility]) Body mass index (BMI) [Ratio] 25.23 kg/m2 25.23 kg/m2 eCW1 ([facility]) Heart rate 88 /min 88 /min eCW1 ([facility]) Respiratory rate 16 /min 16 /min eCW1 ([facility]) Body temperature 97.8 [degF] 97.8 [degF] eCW1 ( [facility]) Systolic blood pressure 242 mm[Hg] 242 mm[Hg] e CW1 ([facility]) Diastolic blood pressure 101 mm[Hg] 101 mm[Hg] eCW1 ([facility]) Body weight 147 [lb_av] 147 [lb_av] eCW1 ([facility]) Body weight kg eCW1 ([facility]) Body height 64 [in_i] 64 [in_i] eCW1 ([facility]) Body mass index (BMI) [Ratio] 25.23 kg/m2 25.23 kg/m2 eCW1 ([facility]) Heart rate 82 /min 82 /min eCW1 ([facility]) Respiratory rate 16 /min 16 /min eCW1 ([facility]) Body temperature 98.4 [degF] 98.4 [degF] eCW1 ( [facility]) Systolic blood pressure 200 mm[Hg] 200 mm[Hg] e CW1 ([facility]) Diastolic blood pressure 83 mm[Hg] 83 mm[Hg] eCW1 ([facility]) Body mass index (BMI) [Ratio] 25.23 kg/m2 25.23 kg/m2 W1 ([facility]) Body height 64 [in_i] 64 [in_i] eCW1 ([facility]) Body weight 147 [lb_av] 147 [lb_av] eCW1 ([facility]) Heart rate 63 /min 63 /min eCW1 ([facility]) Systolic blood pressure 203 mm[Hg] 203 mm[Hg] e CW1 ([facility]) Diastolic blood pressure 86 mm[Hg] 86 mm[Hg] eCW1 ([facility]) Respiratory rate 18 /min 18 /min eCW1 ([facility]) Body temperature 97.0 [degF] 97.0 [degF] eCW1 ( [facility]) Body weight 147 [lb_av] 147 [lb_av] eCW1 ([facility]) Body weight kg eCW1 ([facility]) Body height 64 [in_i] 64 [in_i] eCW1 ([facility]) Body mass index (BMI) [Ratio] 25.23 kg/m2 25.23 kg/m2 eCW1 ([facility]) Heart rate 66 /min 66 /min eCW1 ([facility]) Respiratory rate 18 /min 18 /min eCW1 ([facility]) Body temperature 98.5 [degF] 98.5 [degF] eCW1 ( [facility]) Systolic blood pressure 207 mm[Hg] 207 mm[Hg] e CW1 ([facility]) Diastolic blood pressure 86 mm[Hg] 86 mm[Hg] eCW1 ([facility]) Body weight 147 [lb_av] 147 [lb_av] eCW1 ([facility]) Body weight kg eCW1 ([facility]) Body height 64 [in_i] 64 [in_i] eCW1 ([facility]) Body mass index (BMI) [Ratio] 25.23 kg/m2 25.23 kg/m2 eCW1 ([facility]) Heart rate 77 /min 77 /min eCW1 ([facility]) Respiratory rate 18 /min 18 /min eCW1 ([facility]) Body temperature 98.4 [degF] 98.4 [degF] eCW1 ( [facility]) Systolic blood pressure 146 mm[Hg] 146 mm[Hg] e CW1 ([facility]) Diastolic blood pressure 82 mm[Hg] 82 mm[Hg] eCW1 ([facility]) Body weight 147 [lb_av] 147 [lb_av] eCW1 ([facility]) Body weight kg eCW1 ([facility]) Body height 64 [in_i] 64 [in_i] eCW1 ([facility]) Body mass index (BMI) [Ratio] 25.23 kg/m2 25.23 kg/m2 eCW1 ([facility]) Heart rate 71 /min 71 /min eCW1 ([facility]) Respiratory rate 17 /min 17 /min eCW1 ([facility]) Body temperature 98.2 [degF] 98.2 [degF] eCW1 ( [facility]) Systolic blood pressure 150 mm[Hg] 150 mm[Hg] e CW1 ([facility]) Diastolic blood pressure 72 mm[Hg] 72 mm[Hg] eCW1 ([facility]) Body weight 147 [lb_av] 147 [lb_av] eCW1 ([facility]) Body weight kg eCW1 ([facility]) Body height 64 [in_i] 64 [in_i] eCW1 ([facility]) Body mass index (BMI) [Ratio] 25.23 kg/m2 25.23 kg/m2 eCW1 ([facility]) Heart rate 68 /min 68 /min eCW1 ([facility]) Respiratory rate 18 /min 18 /min eCW1 ([facility]) Body temperature 98.6 [degF] 98.6 [degF] eCW1 ( [facility]) Systolic blood pressure 209 mm[Hg] 209 mm[Hg] e CW1 ([facility]) Diastolic blood pressure 90 mm[Hg] 90 mm[Hg] eCW1 ([facility]) Systolic blood pressure 210 mm[Hg] 210 mm[Hg] e CW1 ([facility]) Body weight 147 [lb_av] 147 [lb_av] eCW1 ([facility]) Diastolic blood pressure 90 mm[Hg] 90 mm[Hg] eCW1 ([facility]) Body weight kg eCW1 ([facility]) Body height 64 [in_i] 64 [in_i] eCW1 ([facility]) Body mass index (BMI) [Ratio] 25.23 kg/m2 25.23 kg/m2 eCW1 ([facility]) Heart rate 74 /min 74 /min eCW1 ([facility]) Respiratory rate 20 /min 20 /min eCW1 ([facility]) Body temperature 98.2 [degF] 98.2 [degF] eCW1 ( [facility]) Body weight 147 [lb_av] 147 [lb_av] eCW1 ([facility]) Body weight kg eCW1 ([facility]) Body height 64 [in_i] 64 [in_i] eCW1 ([facility]) Body mass index (BMI) [Ratio] 25.23 kg/m2 25.23 kg/m2 eCW1 ([facility]) Heart rate 65 /min 65 /min eCW1 ([facility]) Respiratory rate 18 /min 18 /min eCW1 ([facility]) Body temperature 98 [degF] 98 [degF] eCW1 ([facility]) Systolic blood pressure 179 mm[Hg] 179 mm[Hg] e CW1 ([facility]) Diastolic blood pressure 77 mm[Hg] 77 mm[Hg] eCW1 ([facility]) Body weight 147 [lb_av] 147 [lb_av] eCW1 ([facility]) Body weight kg eCW1 ([facility]) Body height 64 [in_i] 64 [in_i] eCW1 ([facility]) Body mass index (BMI) [Ratio] 25.23 kg/m2 25.23 kg/m2 eCW1 ([facility]) Heart rate 66 /min 66 /min eCW1 ([facility]) Respiratory rate 18 /min 18 /min eCW1 ([facility]) Body temperature 97.9 [degF] 97.9 [degF] eCW1 ( [facility]) Systolic blood pressure 150 mm[Hg] 150 mm[Hg] e CW1 ([facility]) Diastolic blood pressure mm[Hg] eCW1 ([facility]) Body weight 147.5 [lb_av] 147.5 [lb_av] eCW1 ([facility]) Body height 64 [in_i] 64 [in_i] eCW1 ([facility]) Body mass index (BMI) [Ratio] 25.32 kg/m2 25.32 kg/m2 eCW1 ([facility]) Heart rate 72 /min 72 /min eCW1 ([facility]) Respiratory rate 16 /min 16 /min eCW1 ([facility]) Body temperature 97.1 [degF] 97.1 [degF] eCW1 ( [facility]) Systolic blood pressure 201 mm[Hg] 201 mm[Hg] e CW1 ([facility]) Diastolic blood pressure 79 mm[Hg] 79 mm[Hg] eCW1 ([facility]) Body height 64 [in_i] 64 [in_i] MEDENT ([facility]) 5'4" Heart rate 61 /min 61 /min MED[facility] ([facility]) Systolic blood pressure--sitting 218 mm[Hg] 218 mm[Hg] MED[facility] ([facility]) CBP, adult cuff/Ra Diastolic blood pressure--sitting 99 mm[Hg] 99 mm[Hg] MEDENT ([facility]) CBP, adult cuff/Ra Systolic blood pressure 154 mm[Hg] 154 mm[Hg] [facility] Diastolic blood pressure 78 mm[Hg] 78 mm[Hg] [facility] Heart rate 63 /min 63 /min [facility] Body height 162.6 cm 162.6 cm [facility] Body weight 67.132 kg 67.132 kg [facility] Body mass index (BMI) [Ratio] 25.40 kg/m2 25.40 kg/m2 [facility] Oxygen saturation in Arterial blood by Pulse oximetry 99 % 99 % [facility] Diastolic blood pressure 88 mm[Hg] 88 mm[Hg] MEDENT ([facility]) Systolic blood pressure 178 mm[Hg] 178 mm[Hg] M EDENT ([facility]) Body weight 70.200 kg 70.200 kg [facility] ([facility]) Oxygen saturation in Arterial blood by Pulse oximetry 100 % 100 % [facility] ([facility]) Body temperature 97.5 [degF] 97.5 [degF] MEDENT ([facility]) Heart rate 68 /min 68 /min [facility] ([facility] Respiratory rate 16 /min 16 /min [facility] ( [facility]) Body weight 154.75 [lb_av] 154.75 [lb_av] MEDEN T ([facility]) Heart rate 62 /min 62 /min [facility] ([facility]) Diastolic blood pressure 76 mm[Hg] 76 mm[Hg] MEDENT ([facility]) Oxygen saturation in Arterial blood by Pulse oximetry 100 % 100 % [facility] ([facility]) Systolic blood pressure 178 mm[Hg] 178 mm[facility] Body weight 69.401 kg 69.401 kg [facility] ([facility] Body mass index (BMI) [Ratio] 26.3 kg/m2 26.3 k g/m2 [facility] ([facility]) Body temperature 97.2 [degF] 97.2 [degF] [facility] ([facility]) Respiratory rate 12 /min 12 /min [facility] ( [facility]) Body height 64 [in_i] 64 [in_i] [facility] ([facility] 5'4" Body weight 153.00 [lb_av] 153.00 [lb_av] MEDEN T ([facility]) ID Date Data Source [id number] 05/14/2020 04:47:29 PM [facility] Name Value Range Interpretation Code Description Data Source(s) WEIGHT RECORDED 156.09 lb 156.09 lb [facility] of Care Planned Activity Planned Date Details Description Data Source (s) Fluconazole 150 MG Oral Tablet 09/12/2020 12:00:00 AM EDT eCW1 ([facility]) Fluconazole 150 MG Oral Tablet 09/12/2020 12:00:00 AM EDT eCW1 ([facility]) Fluconazole 150 MG Oral Tablet 09/12/2020 12:00:00 AM EDT eCW1 ([facility]) Acetaminophen 325 MG / Hydrocodone Bitartrate 5 MG Ora l Tablet 12/12/2014 12:00:00 AM EDT [facility] Biotin 10 MG Oral Tablet Health system Aspirin 325 MG Oral Tablet [facility] atorvastatin 10 MG Oral Tablet [facility] Amlodipine 10 MG Oral Tablet [facility] 1 ML heparin sodium, porcine 1000 UNT/ML Injection [facility] 1 ML heparin sodium, porcine 1000 UNT/ML Injection [facility] Norgestim-Eth Estrad Triphasic (TRI-SPRINTEC) 0.18/0.215/0.2 5 MG-35 MCG TABS [facility] torsemide 20 MG Oral Tablet [facility] lanthanum carbonate 500 MG Chewable Tablet [facility] ferric citrate 1000 MG Oral Tablet [facility]
[2021-01-08] MEDS ORDERED: ACETAMINOPHEN TAB 650MG DOSE (2X325MG) PO ONE (20:45)
[2021-01-08 21:36] LABS: BASO # 0.1 10^3/uL (0.0-0.2); EOS # 0.2 10^3/uL (0.0-0.5); EOS % 2.9 % (0.0-3.0); HEMATOCRIT 32.8 % (36.0-47.0); HEMOGLOBIN 10.9 g/dl (12.0-15.5); LYMPH # 0.8 10^3/uL (1.5-5.0); LYMPH % 12.9 % (24.0-44.0); MEAN CORPUSCULAR HEMOGLOBIN 35.3 pg (27.0-33.0); MEAN CORPUSCULAR HGB CONC 33.2 g/dl (32.0-36.5); MEAN CORPUSCULAR VOLUME 106.1 fl (80.0-96.0); MONO # 0.6 10^3/uL (0.0-0.8); MONO % 9.5 % (2.0-8.0); NEUTROPHILS # 4.3 10^3/uL (1.5-8.5); NEUTROPHILS % 73.5 % (36.0-66.0); PLATELET COUNT, AUTOMATED 133 10^3/uL (150-450); RED BLOOD COUNT 3.09 10^6/uL (4.00-5.40); WHITE BLOOD COUNT 5.9 10^3/uL (4.0-10.0)
--- NOTE | 2021-01-08 21:42 | REPVR ---
PROCEDURE INFORMATION: Exam: XR Chest Exam date and time: 01/08/2021 9:08 PM Age: 45 years old Clinical indication: Other: Dyspnea/cough TECHNIQUE: Imaging protocol: XR of the chest. Views: 1 view. COMPARISON: CR POST BX CHEST 08/29/2020 8:43 AM FINDINGS: Lungs: Persistent right base infiltrate and atelectasis. Pleural spaces: Increased right pleural effusion since the prior study. Heart/Mediastinum: The heart and mediastinum are unchanged. Bones/joints: Unremarkable. IMPRESSION: Mild right pleural effusion, increased since 08/29/2020. Electronically signed by: Dain Cortez On 01/08/2021 21:42:19 PM
[2021-01-08 21:48] LABS: INR 1.21; PROTHROMBIN TIME 15.7 SECONDS (12.7-14.5)
[2021-01-08 22:01] LABS: ALBUMIN 3.6 GM/DL (3.2-5.2); ALT/SGPT 32 U/L (12-78); BILIRUBIN,DIRECT 0.2 MG/DL (0.0-0.2); BILIRUBIN,TOTAL 0.6 MG/DL (0.2-1.0); BLOOD UREA NITROGEN 144 MG/DL (7-18); CARBON DIOXIDE LEVEL 19 MEQ/L (21-32); CHLORIDE LEVEL 95 MEQ/L (98-107); CREATININE FOR GFR 6.39 MG/DL (0.55-1.30); GLOMERULAR FILTRATION RATE 7.5 (>58); GLUCOSE, FASTING 280 MG/DL (70-100); POTASSIUM SERUM 5.8 MEQ/L (3.5-5.1); SODIUM LEVEL 130 MEQ/L (136-145); TOTAL PROTEIN 7.6 GM/DL (6.4-8.2)
[2021-01-08 22:10] LABS: RSV AMPLIFICATION NEGATIVE (NEGATIVE)
--- OUTSIDE RECORDS SUMMARY | 2021-01-08 23:04 | CCD ---
Author Author [facility] Organization 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 Active confirmed 624479349 Problem Mixed hyperlipidemia E78.2 Active confirmed 599554752 Problem Macrocytosis D75.89 Active confirmed 8935614 00 Problem Vitreous hemorrhage, left eye H43.12 Active confirm ed 61978113 Problem Renovascular hypertension I15.0 Active confirmed 311576261 Problem Gait instability R26.81 Active confirmed 226 25081 Problem Depression, unspecified depression type F32.9 Active confirmed 08473166 Problem End stage renal disease on dialysis due to type 1 diabetes mellitus E10.22 Active confirmed 66805389571843 Problem Abnormal uterine bleeding (AUB) N93.9 Active confirmed 88748082064154 Problem Type 1 diabetes mellitus with vitreous hemorrhage of r ight eye E10.39 Active confirmed 91365847 Problem Vitreous hemorrhage of right eye H43.11 Active conf irmed 27634776 Problem Dysthymia F34.1 Active confirmed 80478567 Problem Iron deficiency anemia, unspecified D50.9 Acti ve confirmed 65223912 Problem Non-seasonal allergic rhinitis due to other allergic demi er J30.89 Active confirmed 37891916 Problem Chronic cough R05 Active confirmed 047813 08 Problem Dependence on renal dialysis Z99.2 Active confirme d 875211992 Problem 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 severity L97.429 Active confirmed 419874222 Problem Type 1 diabetes mellitus with foot ulcer E10.621 Active confirmed 11010265878894 Problem 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 Active confirmed 066070766 Problem Alopecia L65.9 Active confirmed 61164620 Problem Diabetes with renal manifest ations, type I [juvenile type], uncontrolled 250.43 Active confirmed 897446551 Problem Diabetic retinopathy associa alba with type 1 diabetes mellitus, macular edema presence unspecified, unspecified retinopathy severity E10.31 9 Active confirmed Problem End stage renal disease N18.6 Active confirmed 49884631 Problem Type 1 diabetes mellitus with diabetic chronic kidney disease E10.22 Active confirmed 54781267 Problem Hypertensive chronic kidney disease with stage 5 chronic kidney disease or end stage renal disease I12.0 Active confirmed 129 799794641542 Problem Vasomotor rhinitis J30.0 Active confirmed 8 021566 Problem Non-pressure chronic ulcer o f other part of left foot with fat layer exposed L97.522 Active confirmed 071062374 ALLERGIES Allergen (clinical drug ingredient) Drug/Non Drug Allergy do cumented on EMR Reaction Allergy Type Onset Date Status ciprofloxacin Cipro([facility] Code:[address]-99) RASH Drug Allergy Active Seasonal nasal congestion, cough Non Drug Allergy Active ENCOUNTERS from 1976 to 2020-11-14 Encounter Location Date Provider Diagnosis [facility] [address] [phone] [place] [address] Oct, Jannette Núñez IMMUNIZATIONS Vaccine Route Administration [...] Education Language: Question Answer Notes Languages spoken: Divehi Nondenominational: Question Answer Notes Nondenominational 33 None Sexual Hx: Question Answer Notes [...] for 30 day(s) Active Vitamin D (Ergocalciferol) 78154 UNIT 1 capsule Orally once a week Active HumuLIN N 100 UNIT/ML take 15 units in the morning , 10 units at night Subcutaneous twice daily as directed Oct, Active Dificid 200 MG 1 tablet Orally Twice a day for 10 day(s) 2 2 June, 2020 Unknown PROCEDURES No Information RESULTS No Results REASON FOR VISIT R/s [facility] Apt MEDICAL (GENERAL) HISTORY Type Description [...] Hospitalization History STOMACH FLU-[facility] 2019 Hospitalization History INFECTION-[facility] 2020 Hospitalization History [facility] admitted 08/25/2020 Hospitalization History food poinoning 08/18 Goals Section No Information Health Concerns No Information MEDICAL EQUIPMENT No Information MENTAL STATUS No Information FUNCTIONAL STATUS No Information ASSESSMENTS No Information PLAN OF TREATMENT Next Appt Details Provider Name:Jannette Núñez, 11-26 02:00:00 PM, [address], , [place], [address], Insurance Providers Payer Name Payer Address Payer Phone Insured Name Patient Relati onship to Insured Coverage Start Date Coverage End Date TRISHA RUBY [facility] [address] [place] [address] [place] MEDICARE Part A and B [address] [facility] [phone] KAYLEE NYE
--- OUTSIDE RECORDS SUMMARY | 2021-01-08 23:05 | CCD ---
Author Author [facility] Organization [facility] Address Unknown Phone Unavailable Care Team Providers Care Press Set Up Name Role Phone BROOKE LR MD Unavailable [...] PODOLAK, A TASHA Unavailable Unavailable Brandy Ray WALL STEAMER Unavailable Unavailable Brandy Ray WALL STEAMER Unavailable Unavailable Brandy Ray WALL STEAMER Unavailable Unavailable Brandy Ray WALL STEAMER Unavailable Unavailable Thankachan, Reeba WALL STEAMER Unavailable Unavailable Thankachan, Reeba WALL STEAMER Unavailable Unavailable Thankachan, Reeba WALL STEAMER Unavailable Unavailable Thankachan, Reeba WALL STEAMER Unavailable Unavailable Thankachan, Reeba WALL STEAMER Unavailable Unavailable Thankachan, Reeba WALL STEAMER Unavailable Unavailable Thankachan, Reeba WALL STEAMER Unavailable Unavailable Thankachan, Reeba WALL STEAMER Unavailable Unavailable Thankachan, Reeba WALL STEAMER Unavailable Unavailable Thankachan, Reeba WALL STEAMER Unavailable Unavailable Thankachan, Reeba WALL STEAMER Unavailable Unavailable Thankachan, Reeba WALL STEAMER Unavailable Unavailable Thankachan, Reeba WALL STEAMER Unavailable Unavailable Thankachan, Reeba WALL STEAMER Unavailable Unavailable Thankachan, Reeba WALL STEAMER Unavailable Unavailable Thankachan, Reeba WALL STEAMER Unavailable Unavailable Thankachan, Reeba WALL STEAMER Unavailable Unavailable Thankachan, Reeba WALL STEAMER Unavailable Unavailable Thankachan, Reeba WALL STEAMER Unavailable Unavailable Thankachan, Reeba WALL STEAMER Unavailable Unavailable Thankachan, Reeba WALL STEAMER Unavailable Unavailable Thankachan, Reeba WALL STEAMER Unavailable Unavailable Thankachan, Reeba WALL STEAMER Unavailable Unavailable Thankachan, Reeba WALL STEAMER Unavailable Unavailable Thankachan, Reeba WALL STEAMER Unavailable Unavailable Thankachan, Reeba WALL STEAMER Unavailable Unavailable Thankachan, Reeba WALL STEAMER Unavailable Unavailable Thankachan, Reeba WALL STEAMER Unavailable Unavailable Thankachan, Reeba WALL STEAMER Unavailable Unavailable Thankachan, Reeba WALL STEAMER Unavailable Unavailable Thankachan, Reeba WALL STEAMER Unavailable Unavailable Thankachan, Reeba WALL STEAMER Unavailable Unavailable Thankachan, Reeba WALL STEAMER Unavailable Unavailable Thankachan, Reeba WALL STEAMER Unavailable Unavailable Thankachan, Reeba WALL STEAMER Unavailable Unavailable Thankachan, Reeba WALL STEAMER Unavailable Unavailable Thankachan, Reeba WALL STEAMER Unavailable Unavailable Thankachan, Reeba WALL STEAMER Unavailable Unavailable Thankachan, Reeba WALL STEAMER Unavailable Unavailable Thankachan, Reeba WALL STEAMER Unavailable Unavailable Thankachan, Reeba WALL STEAMER Unavailable Unavailable Thankachan, Reeba WALL STEAMER Unavailable Unavailable Thankachan, Reeba WALL STEAMER Unavailable Unavailable Thankachan, Reeba WALL STEAMER Unavailable Unavailable ANTECOL, Denis FLOYD MD Unavailable [...] Unavailable Unavailable Paramjit Ndiaye MD Unavailable Unavailable Paarmjit Ndiaye MD Unavailable Unavailable Paramjit Ndiaye MD [...] is protected by Article 27-F of the [facility] Public Health law. If you continue you may have access to information: Regarding HIV / AIDS; Provided by facilities licensed or operated by the [facility] Office of Mental Health; or Provided by the [facility] Office for People With Developmental Disabilities. If such information is present, then the following [facility] mandated warning applies: This information has [...] law may result in a fine or nursing home sentence or both. A general authorization for the release of medical or other information is NOT sufficient authorization for further disc losure. Encounters Encounter Providers Location Date Indications Data Source(s ) Unknown [address] [facility] [place] [address] 12/17/2020 12:00:00 AM EDT eCW1 ([facility]) Unknown [address] [facility] [place] [address] 11/28/2020 12:00:00 AM EDT eCW1 ([facility]) Unknown [address] [facility] [place] [address] 11/26/2020 12:00:00 AM EDT eCW1 ([facility]) [place] [address] [facility] [address] 11/14/2020 12:00:00 AM EDT eCW1 ([facility]) ([id number]) For [facility] [place] [address] [place] [address] 2020 12:00:00 AM EDT eCW1 ([facility]) ([id number]) [facility] [employer] [place] [address] [place] [address] 10/17/2020 12:00:00 AM EDT eCW1 ([facility]) [place] [address] [facility] [address] 10/02/2020 12:00:00 AM EDT eCW1 ([facility]) ([id number]) [facility] [employer] [place] [address] [place] [address] 09/24/2020 12:00:00 AM EDT eCW1 ([facility]) [place] [address] [facility] [address] 09/15/2020 12:00:00 AM EDT eCW1 ([facility]) Out[place] [address] [facility] [address] 09/12/2020 12:00:00 AM EDT eCW1 ([facility]) [place] [address] [facility] [place] [address] 09/12/2020 12:00:00 AM EDT eCW1 ([facility]) Unknown [address] [facility] [place] [address] 09/10/2020 12:00:00 AM EDT eCW1 ([facility]) Unknown [address] [facility] [address] 09/08/2020 12:00:00 AM EDT eCW1 ([facility]) ([id number]) For [place] [address] [place] [address] 08/20/2020 12:00:00 AM EDT eCW1 ([facility]) ([id number]) For [facility] [place] [facility] [place] [address] 08/13/2020 12:00:00 AM EDT eCW1 ([facility]) ([id number]) For [employer] [place] [facility] [place] [address] 08/06/2020 12:00:00 AM EDT eCW1 ([facility]) ([id number]) For [employer] [place] [facility] [place] [id number] 07/30/2020 12:00:00 AM EDT eCW1 ([facility]) ([id number]) For [employer] [place] [facility] [place] [address] 07/23/2020 12:00:00 AM EDT eCW1 ([facility]) ([id number]) For [employer] [place] [facility] [place] [address] 07/16/2020 12:00:00 AM EDT eCW1 ([facility]) Unknown [address] [place] [address], [facility] [address] 07/14/2020 12:00:00 AM EDT eCW1 ([facility]) ([id number]) For [employer] [place] [address] [place] [address] 07/09/2020 12:00:00 AM EDT eCW1 ([facility]) Unknown [facility] [address] 07/03/2020 12:00:00 AM EDT eCW1 ([facility]) (WND [id number]) New Patient [address] [place] [address] 07/02/2020 12:00:00 AM EDT eCW1 ([facility]) Unknown [facility] [address] 06/19/2020 12:00:00 AM EDT eCW1 ([facility]) Outpatient Attender: BRENNEN LEVINE DPM PC 05/28/2020 12:52:00 PM EDT - 05/28/2020 12:52:00 PM EDT [facility] Outpatient Attender: RITA ZAMARRIPA [id number] 05/15/2020 04:42:29 PM EDT [facility] Outpatient Attender: BROOKE LR MD [id number] 05/14/2020 12:00:00 AM EDT - 05/14/2020 02:04:10 PM EDT Encounter for other preprocedural examination [facility] Encounter for other preprocedural examin ation Outpatient Attender: Brandy Ray NP [id number] 12:00:00 AM EST - 04/23/2020 12:20:[facility]: TASHA COLUNGA [id number] 04/23/19 12:00:00 AM EST - 04/23/2020 12:20:23 PM [facility] Inpatient Attender: Adebayo Velasco mitter: Adebayo Ndiaye MDReferrer: NILSON RG MD ES1-OR 04/11/2020 09:05:55 AM EST - 04/18/2020 07:04:00 PM EST [facility] Patient discharged. Outpatient Attender: BRENNEN ESCALERA 03/19/2020 01:00:00 PM EST - 03/19/2020 01:00:00 PM EST [facility] Outpatient Attender: RITA ZAMARRIPA [id number] 03/18/2020 12:00:00 AM [facility] Outpatient Attender: MARIEL YAN MD Main Office 03/07/2020 10:00:00 AM EST [facility]CH[facility] ([facility]) Outpatient Attender: Brandy Ray NP 03/03/2020 12:00: 00 AM [facility] Outpatient Attender: Adebayo Ndiaye MDReferrer: Adebayo wallace MD [facility] 02/26/2020 09:33:34 AM EST - 02/26/2020 10:45:12 AM EST [facility] Outpatient Referrer: Adebayo Ndiaye MD MOB-MOB.PAT 02/22 08:32:13 AM EST - 02/23/2020 08:32:17 AM [facility] Inpatient Attender: Adebayo Ndiaye MDAdmitter: Adebayo wallace MD ES1-OR.PERIOP 02/19/2020 12:36:52 PM EST [facility] Outpatient 02/13/2020 12:00:00 AM [facility] Unknown [address] [facility] [address] 12/27/2019 12:00:00 AM EDT eCW1 ([facility]) Outpatient Attender: BRENNEN LEVINE DPM PC 12/26/2019 03:30:00 PM EDT - 12/26/2019 03:30:00 PM EDT [facility] Outpatient Attender: BRENNEN LEVINE DPM PC 12/12/2019 03:39:00 PM EDT - 12/12/2019 03:39:00 PM EDT [facility] Immunizations Vaccine Date Status Description Data Source(s) COVID-19 VACCINE Moderna 06/19/2020 12:00:00 AM EDT completed [place] Vaccine Series Complete: YESThis Data wa s Submitted to [facility] Via [employer]. COVID-19 VACCINE Moderna 06/19/2020 12:00:00 AM EDT completed [place] Vaccine Series Complete: YESThis Data wa s Submitted to [facility] [employer]. COVID-19 VACCINE Moderna 05/27/2020 12:00:00 AM EDT completed [facility] Vaccine Series Complete: NOThis Data was Submitted to [facility] [employer]. Medications Medication Brand Name Start Date Product Form Dose Route Admi nistrative Instructions Pharmacy Instructions Status Indications Reaction Description Data Source(s) Fluconazole 150 MG Oral Tablet Fluconazole 150 MG 09/12/2020 12:00: 00 AM EDT 1.0 {tablet} active Fluconazole 150 MG eCW1 ([facility]) Fluconazole 150 MG Oral Tablet Fluconazole 150 MG 09/12/2020 12:00: 00 AM EDT 1.0 {tablet} active Fluconazole 150 MG eCW1 ([facility]) Fluconazole 150 MG Oral Tablet Fluconazole 150 MG 09/12/2020 12:00: 00 AM EDT 1.0 {tablet} active Fluconazole 150 MG eCW1 ([facility]) Fluconazole 150 MG Oral Tablet Fluconazole 150 MG 09/12/2020 12:00: 00 AM EDT 1.0 {tablet} active Fluconazole 150 MG eCW1 ([facility]) Fluconazole 150 MG Oral Tablet Fluconazole 150 MG 09/12/2020 12:00: 00 AM EDT 1.0 {tablet} active Fluconazole 150 MG eCW1 ([facility]) Fluconazole 150 MG Oral Tablet Fluconazole 150 MG 09/12/2020 12:00: 00 AM EDT 1.0 {tablet} active Fluconazole 150 MG eCW1 ([facility]) Fluconazole 150 MG Oral Tablet Fluconazole 150 MG 09/12/2020 12:00: 00 AM EDT 1.0 {tablet} active Fluconazole 150 MG eCW1 ([facility]) Fluconazole 150 MG Oral Tablet Fluconazole 150 MG 09/12/2020 12:00: 00 AM EDT 1.0 {tablet} active Fluconazole 150 MG eCW1 ([facility]) Fluconazole 150 MG Oral Tablet Fluconazole 150 MG 09/12/2020 12:00: 00 AM EDT 1.0 {tablet} active Fluconazole 150 MG eCW1 ([facility]) Fluconazole 150 MG Oral Tablet Fluconazole 150 MG 09/12/2020 12:00: 00 AM EDT 1.0 {tablet} active Fluconazole 150 MG eCW1 ([facility]) Fluconazole 150 MG Oral Tablet Fluconazole 150 MG 09/12/2020 12:00: 00 AM EDT 1.0 {tablet} active Fluconazole 150 MG eCW1 ([facility]) Losartan Potassium 100 MG Oral Tablet Losartan Potassium 12:00:00 AM EST ORAL active [facility] Losartan Potassium 50 MG Oral Tablet Losartan Potassium 08/2020 12:00:00 AM EST ORAL completed [facility] ([facility]) Ergocalciferol 81337 UNT Oral Capsule Vitamin D (Ergocalcife rol) 03/06/2020 12:00:00 AM EST ORAL active M EDENT ([facility]) Regular Insulin, Human 100 UNT/ML Injectable Solution [Novol in R] Novolin R 03/06/2020 12:00:00 AM EST active [facility] ([facility]) Escitalopram 10 MG Oral Tablet [Lexapro] Lexapro 03/06/2020 12:00: 00 AM EST ORAL active [facility] ([facility] ferric citrate 1000 MG Oral Tablet [Auryxia] Auryxia 08/2020 12:00:00 AM EST ORAL active [facility] ( [facility]) Parsabiv Parsabiv 03/06/2020 12:00:00 AM EST activ e [facility] ([facility]) Veltassa Veltassa 03/06/2020 12:00:00 AM EST activ e [facility] ([facility]) Acetaminophen 325 MG / Hydrocodone Michael trate 5 MG Oral Tablet HYDROcodone- acetaminophen (NORCO) 5-325 MG per tablet HYDROcodone-acetaminophen (NORCO) 5- 325 MG per tablet 12/12/2014 12:00:00 AM EDT 1 {tbl} Oral aborted Take 1 tablet by mouth every 4 (four) hours as needed for pain Max Daily Amount: 6 tablets [facility] Biotin 10 MG Oral Tablet Biotin (BIOTIN MAXIMUM STRENG TH) 10 MG TABS Biotin (BIOTIN MAXIMUM STRENGTH) 10 MG TABS 1 {each} Oral aborted Take 1 each by mouth daily. [facility] Aspirin 325 MG Oral Tablet aspirin 325 MG tablet aspirin 325 MG tab let 325 mg Oral aborted Take 325 mg by mouth jeremías ly. [facility] atorvastatin 10 MG Oral Tablet atorvastatin (LIPITOR) 10 MG tablet atorvastatin (LIPITOR) 10 MG tablet 10 mg Oral aborted Take 10 mg by mouth every evening. [facility] ferric citrate 1000 MG Oral Tablet Wilfred c Citrate 1 GM 210 MG(Fe) Oral Tablet (Auryxia) Ferric Citrate 1 GM 210 MG(Fe) Oral Tablet (Auryxia) Oral aborted Take by mouth [facility] lanthanum carbonate 500 MG Chewable Tabl et Lanthanum Carbonate 500 MG Oral Tablet Chewable (FOSRENOL) Lanthanum Carbonate 500 MG Oral Tablet C hewable (FOSRENOL) 500 mg Oral aborted Chew 500 mg by Mouth Two times daily with meals [facility] Norgestim-Eth Estrad Triphasic (TRI-SPRINTEC) 0.18/0.2 15/0.25 MG-35 MCG TABS 33725-477-22 1 {tbl} Oral aborted Take 1 ta blet by mouth nightly [facility] torsemide 20 MG Oral Tablet torsemide (DEMADEX) 20 MG tablet torsemide (DEMADEX) 20 MG tablet 20 mg Oral aborted Ta ke 20 mg by mouth 2 (two) times a day [facility] 1 ML heparin sodium, porcine 1000 UNT/ML Injection Heparin Sodium, Porcine, (HEPARIN, PORCINE,) 1000 UNIT/ML injection Heparin Sodium, Porcine, (HEPARIN, PORCINE,) 1000 UNIT/ML injection 2600 U abort ed 2,600 Units catheter lock venous blue port every treatment at dialysis [facility] 1 ML heparin sodium, porcine 1000 UNT/ML Injection Heparin Sodium, Porcine, (HEPARIN, PORCINE,) 1000 UNIT/ML injection Heparin Sodium, Porcine, (HEPARIN, PORCINE,) 1000 UNIT/ML injection 2400 U abort ed 2,400 Units catheter lock arterial red port every treatment at dialysis [facility] Amlodipine 10 MG Oral Tablet amlodipine (NORVASC) 10 M G tablet amlodipine (NORVASC) 10 MG tablet 10 mg Oral aborted Take 10 mg by mouth daily. [facility] Insurance Providers Payer name Policy type / Coverage type Policy ID Covered constitution party ID Covered constitution party's relationship to [place] Policy [place] Plan Information [facility] [id number] xxxxxxxxx [id number] [facility] [id number] [facility] [id number] 325 [facility] [id number] Spouse [id number] MEDICARE [id number] Yusra [id number] MEDICARE [id number] xxxxxxxxxxx [id number] MEDICARE A [id number] Self [id number] MEDICARE [id number] Yusra [id number] A MEDICARE A [id number] Self [id number] A OTHER B TRANSPLANT Self TRANSPLAN T INSURANCE COVID-19 COVID Yusra C OVID INSURANCE COVID-19 [id number] [id number] ANSI-Commercial [id number] ANSI-Medicare Part B [id number] ANSI-Medicare Part B [id number] ANSI-Commercial [id number] ANSI-Medicare Part B [id number] ANSI-Commercial [id number] ANSI-Medicare Part B [id number] ANSI-Commercial [id number] ANSI-Medicare Part B [id number] ANSI-Commercial [id number] EXCELLUS BCBS PI PI MEDICARE PI PI ANSI-Medicare Part B [id number] ANSI-Commercial [id number] ANSI-Medicare Part B [id number] ANSI-Commercial [id number] ANSI-Medicare Part B [id number] ANSI-Commercial [id number] ANSI-Medicare Part B [id number] ANSI-Commercial [id number] MEDICAID [id number] SP [id number] MEDICAID CO [id number] 18 [id number] MEDICAID -PHYSICIAN [id number] 1 8 [id number] ANSI-Commercial [id number] ANSI-Medicare Part B [id number] ANSI-Medicare Part B [id number] ANSI-Commercial [id number] ANSI-Commercial [id number] ANSI-Medicare Part B [id number] MEDICAID M [id number] S [id number] MEDICARE C [id number] S [id number] A [facility] OPTIONS C [id number] S [id number] ANSI-Medicare Part B [id number] ANSI-Commercial [id number] ANSI-Commercial [id number] ANSI-Medicare Part B [id number] EXCELLUS BCBS FEDERAL [id number] HU2 [id number] EXCELLUS BCBS FEDERAL [id number] HU2 [id number] UNHC COMMUNITY PLAN MCDHMO UNAVAILABLE UNAVAILABLE MEDICARE [id number] SP [id number] A EXCELLUS BLUE CROSS BLUE SHIELD HEA [id number] SP [id number] MEDICARE M [id number] S [id number] A BLUE CROSS O [id number] SP [id number] MEDICARE [id number] SP [id number] T BC BS [place] FEDERAL [id number] HU2 [id number] MEDICARE [id number] SP [id number] SELF PAY UNAVAILABLE UNAVAILA BLE BCBS FEDERAL EMPLOYEE PROGRAM [id number] HU2 [id number] BCBS FEDERAL EMPLOYEE PROGRAM [id number] HU2 [id number] EXCELLUS CNY FEP [id number] 01 [id number] MEDICARE PART A [facility] [id number] 18 [id number] MEDICARE C [id number] S [id number] BC BS [place] WATN FEDERAL B [id number] S [id number] MEDICARE [id number] SP [id number] A BLUE CROSS BLUE SHIELD CO UNAVAILABLE 01 UNAVAILABLE BLUE CROSS BLUE SHIELD -O/P UNAVAILABLE 01 UNAVAILABLE BLUE CROSS BLUE SHIELD [facility] [id number] Problems, Conditions, and Diagnoses Code Display Name Description Problem Type Effective Dates Data Source(s) 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 B351 Tinea unguium Tinea unguium Diagnosis 05/28/2020 12:52:00 PM EDT [facility] P51671 Pressure ulcer of other site, stage 2 Pr essure ulcer of other site, stage 2 Diagnosis 05/28/2020 12:52:00 PM EDT [facility] L84 Corns and callosities Corns and callosities Diagnosis 05/28/2020 12:52:00 PM EDT [facility] Z01.818 Encounter for other preprocedural examin ation Encounter for other preprocedural examination Diagnosis 05/14/2020 01:09:22 PM EDT [facility] N18.5 Chronic kidney disease, stage 5 Chronic kidney disease , stage 5 Diagnosis 04/18/2020 12:19:00 PM EST [facility] N18.6 End stage renal disease End stage renal disease Diagno sis 04/18/2020 12:19:00 PM [facility] P59118 Pain in left foot Pain in left foot Diagnosis 03/19/2020 01:00:00 PM [facility] U07.1 COVID-19 COVID-19 Diagnosis 02/23/2020 08:32:13 AM ES T [facility] D21543 Pressure ulcer of other site, stage 1 Pr essure ulcer of other site, stage 1 Diagnosis 12/26/2019 03:30:00 PM EDT 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, type I [juvenile type], uncontrolled Problem 09/12/2020 12:00:00 AM EDT eCW1 ([facility]) L97.522 [id number] Non-pressure chronic ulcer of other part of left foot with fat layer exposed Problem 07/02/2020 12:00:00 AM EDT eCW1 ([facility]) L97.422 445825223 Non-pressure chronic ulcer of left heel and midfoot with fat layer exposed Problem 07/02/2020 12:00:00 AM EDT eCW1 ([facility]) 8023870 Old myocardial infarction Old myocardial infarction Pr oblem 03/07/2020 12:00:00 AM EST [facility] ([facility]) 11629855 Paroxysmal supraventricular tachycardia Paroxysmal supraventricular tachycardia Problem 03/07/2020 12:00:00 AM EST [facility] ([facility]) 33379983 Essential hypertension Essential hypertension Problem 03/07/2020 12:00:00 AM EST [facility] ([facility]) [id number] Preoperative cardiovascular examination Preoperative cardiovascular examination Problem 03/07/2020 12:00:00 AM EST [facility] ([facility] 87578548 Hypertensive heart disease without conge stive heart failure Hypertensive heart disease without congestive heart failure Problem 03/07/2020 12:00:00 AM EST [facility] ([facility]) 794264022 Electrocardiogram abnormal Electrocardiogram abnormal Problem 03/07/2020 12:00:00 AM EST [facility] ([facility]) [id number] 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 on electrocardiogram Problem 03/07/2020 12:00:00 AM EST [facility] Surgeries/Procedures Procedure Description Date Indications Data Source(s) FINE NEEDLE ASPIRATION W/O IMAGING GUIDANCE 2020 12:00:00 AM EDT eCW1 ([facility]) FINE NEEDLE ASPIRATION W/O IMAGING GUIDANCE 10/17/2020 12:00:00 AM EDT eCW1 ([facility]) FINE NEEDLE ASPIRATION W/O IMAGING GUIDANCE 09/24/2020 12:00:00 AM EDT eCW1 ([facility] [facility] FINE NEEDLE ASPIRATION W/O IMAGING GUIDANCE 08/20/2020 12:00:00 AM EDT eCW1 (Formerly [facility]) FINE NEEDLE ASPIRATION W/O IMAGING GUIDANCE 08/13/2020 12:00:00 AM EDT eCW1 ([facility]) Medication: Silver Nitrate Stick topically 08/13/2020 12:00:00 AM EDT eCW1 ([facility]) FINE NEEDLE ASPIRATION W/O IMAGING GUIDANCE 08/06/2020 12:00:00 AM EDT eCW1 ([facility]) FINE NEEDLE ASPIRATION W/O IMAGING GUIDANCE 07/30/2020 12:00:00 AM EDT eCW1 ([facility]) FINE NEEDLE ASPIRATION W/O IMAGING GUIDANCE 07/23/2020 12:00:00 AM EDT eCW1 ([facility]) FINE NEEDLE ASPIRATION W/O IMAGING GUIDANCE 07/16/2020 12:00:00 AM EDT eCW1 ([facility]) Medication: Santyl 250unit/G ointment to wound bed 07/16/2020 12:00:00 AM EDT eCW1 ([facility]) FINE NEEDLE ASPIRATION W/O IMAGING GUIDANCE 07/09/2020 12:00:00 AM EDT eCW1 ([facility]) FINE NEEDLE ASPIRATION W/O IMAGING GUIDANCE 07/02/2020 12:00:00 AM EDT eCW1 ([facility]) Medication: 2% Lidocaine intradermal 07/02/2020 12:00: 00 AM EDT eCW1 ([facility]) Medication: Santyl 250unit/G ointment to wound bed 07/02/2020 12:00:00 AM EDT eCW1 ([facility]) Medication: Silver Nitrate Stick topically 07/02/2020 12:00:00 AM EDT eCW1 ([facility]) Revise Arteriovenous Fistula 04/18/2020 12:00:00 AM ES T ADI ([facility]) Pare Hyperkeratotic Lesion, 2-4 03/19/2020 12:00:00 AM EST MEDENT ([facility]) Debridement Nails Any Method 6 Or More 03/19/2020 12:0 0:00 AM EST [facility] ([facility]) ECG ROUTINE ECG W/LEAST 12 LDS W/I&R 03/07/2020 12:00: 00 AM EST MEDENT ([facility]) Arterial Pressure Waveform Analysis For Assessment Of Centra l Art 03/07/2020 12:00:00 AM EST [facility]ENT ([facility]) ECG ROUTINE ECG W/LEAST 12 LDS TRCG ONLY W/O I&R <td>E CG 12- LEAD</td><td>Routine</td><td>02/26/2020 10:38 AM EST</td><td> End stage renal disease</td><td></td> 02/26/2020 03:38:13 PM EST End stage renal disease [facility] End stage renal disease HEMOGLOBIN GLYCOSYLATED A1C <td>HEMOGLOBIN A1C</td><td>Routine</td><td>02/26/2020 10:30 AM EST</td><td> End stage renal disease</td><td> </td> 02/26/2020 03:30:00 PM EST End stage renal disease [facility] End stage renal disease BLOOD COUNT COMPLETE AUTOMATED <td>CBC</td><td>Routine </td><td>02/26/2020 10:00 AM EST</td><td> End stage renal disease</td><td> </td> 02/26/2020 03:00:00 PM EST End stage renal disease [facility] End stage renal disease BASIC METABOLIC PANEL CALCIUM TOTAL <td>BASIC METABOLI C PANEL</td><td>Routine</td><td>02/26/2020 10:00 AM EST</td><td> End stage renal disease</td><td> </td> 02/26/2020 03:00:00 PM EST End stage renal disease [facility] End stage renal disease Pare Hyperkeratotic Lesion, 2-4 12/12/2019 12:00:00 AM EDT [facility] ([facility]) Debridement Nails Any Method 6 Or More 12/12/2019 12:0 0:00 AM EDT [facility] ([facility]) Results ID Date Data Source [id number] 08/26/2020 08:15:00 PM EDT [facility] Name Value Range Interpretation Code Description Data Mira rce(s) Supporting Document(s) SARS coronavirus 2 RNA [Presence] in Res piratory specimen by KENYATTA with probe detection NEGATIVE [facility] This lab was ordered by [facility] a nd reported by [facility]. ID Date Data Source [id number] 06/10/2020 12:39:00 AM EDT [facility] Name Value Range Interpretation Code Description Data Mira rce(s) Supporting Document(s) SARS-CoV-2 (COVID 19) NEGATIVE - SARS-CoV-2 (COVID19) [facility] This lab was ordered by [facility] a nd reported by [facility]. ID Date Data Source [id number] 05/15/2020 04:42:29 PM EDT [facility] Name Value Range Interpretation Code Description Data Mira rce(s) Supporting Document(s) Progress Note [facility] [place] TYRUYp4yAhCTIbOk02/AVAbhZOXgu4UqSUhoOXw2GIbfAZOoG0LdMDL1uA9lIBK1QAvFZuCnQpXyZiN6 lbm [file] ICAgICAgICAgICAgICAgICAgICAgICAgICAgICAgIC AgICAgICAgICAgICAgICAgICAgICAgICAgICAgICAgICAgICAgICAgICAgICAgICAgICAgICAgICAgIC OmIHYvRUSvLB8KKHKuMMMoLPKsXCScHMBeSCMtXILeVBYvYIVdLAXnFHNbSQFnLSZqOWMnDYHtVYSuSE AgICAgICAgICAgICAgICAgICAgICAgICAgICAgICAg QWFuFXJpKYVoVOQxTFNpFJLpXF9THJFgIGAaYQBpQSXwPIXlXGVjIRRoKDIkMWNgIUHwYDUcXOPkIWEq ICAgICAgICAgICAgICAgICAgICAgICAgICAgICAgICAgICAgICAgICAgICAgICAgICAgICAgICAgICAg RJ7ILJYnTNJuBMBfOVXaSONjCZTxGBOkFSXxXLCmJQ AgICAgICAgICAgICAgICAgICAgICAgICAgICAgICAgICAgICAgICAgICAgICAgICAgICAgICAgICAgIC UiEIFiKTJrCJUtUE9BQRJyGTAyXBTiCSFlXSSpGIDgLPEcUVVkOVUzKZEoYDQjFBQqTOYaDIGjWJRqHO AgICAgICAgICAgICAgICAgICAgICAgICAgICAgICAg BJQgMCUuXMRiZONuFAZjNCQxAZOeFL9RQEDfNFEvKGIxMNBgEUUrGTWaTELqGGAwAGXeWMHkQQFvJDKv ICAgICAgICAgICAgICAgICAgICAgICAgICAgICAgICAgICAgICAgICAgICAgICAgICAgICAgICAgICAg BBAwBV7PZULjXZSnBPDuEFXmXSEoVOXoZXQxROMrPJ AgICAgICAgICAgICAgICAgICAgICAgICAgICAgICAgICAgICAgICAgICAgICAgICAgICAgICAgICAgIC YsDKCzVDCwYBJgTMTwOO2TVCUhNOPiUFOaLEPdDLNcVRXuKTZkLJWgRWDpRUFmPZHxLAQcZXBnEPSjOI AgICAgICAgICAgICAgICAgICAgICAgICAgICAgICAg XTLbXQKiKRYtNQYqBULaXCCrYIFwITFcQM9RSZFrZPDyLKPeZEWcPNXuIJYgCKMmTWBrPSTaCCFrGVVo ICAgICAgICAgICAgICAgICAgICAgICAgICAgICAgICAgICAgICAgICAgICAgICAgICAgICAgICAgICAg QAGxJNBhWJ0FMXFtBSHmVKTgJBJkNZBuRIByLGQpIU AgICAgICAgICAgICAgICAgICAgICAgICAgICAgICAgICAgICAgICAgICAgICAgICAgICAgICAgICAgIC OoJRTiQEKvXSEeTCMnYJZtWG6VJK66yNSap4U8PPQvOZ7ncym/Ux2XQUjnhvDiwXQjJO0EDgFnWM8szs 7RTjOyUD4nve7RDKgGDvJbV4V4oMNkKFYyDPMBZpTw I69xXTwfEy13FCewOAXvYwTzIBz7Kx1BLzEbD2rqEYFnYhD1UCIjAcArOSooZI2Es5ZkoRFsPGm+Pg0K ZI9ky9DhUBfsGQGtDZ5hda2VASyYNeZfE1MgulY2XAVoCLAlXh6WOULcOTGwdPZzGJDyUHDJTyRpT2Il iG50GRLUZp1+FNgsgkNiYoqBUnPdHVBbx1RvYTz4PF 0OUINcZQm0bIVgPEHlH7Fed6ScRc65GDYhTdghA5Rjy9ZvJQCDWQdnzaCfRIkaXn1fXVKaJa3gIM2dVW YpDOU1AeY4FPYJEP5CXWBaAWEbyMDxWGYmXFDZXI6TBWluTZP3FLSgshDhjOYqFLmcTG2SUGZycbVtIK kgMCBSDQo+Mg3SIR6hu8YfZBdvNSTzCG1vrl3XFZlL VwQxX5I2mTEqX9I3WPttFr9TFONzONFhPKmtHFQNSLojUS8SNK2ovkY1HV0AtCWxDMVsSEHhgVLwEGq9 E46yzWMqEXknWY7AYSN+Deyanira+Aq7XIVXvDTRlKTZhSfAjAZMXUcCeF7TiB8REk6HjN8IcLA95dRscqcQb ZXifXF1NFW6fEOClXLGPVD6TlGIqwA6zieAhTXQyZD OLTqQpV87qxIBsPFPcSRP7VYMxWd2PWFLeJ5IvskPctLvtopYwZHRrGJHYUL4OPVenruPgiBDaeQcyJS 81iGtgSX9BBv2KJsZgFU4bag9HvMNmZu0PBTVfVa2IMDFzRENzUFUzOBQ7BDNqKqNySJpkYNXxODSqZH M7SXSbJEXuUN6AYsOtRBHgFLv4KZIoVICrGTIqoe9D DRAsXQTzLLM1IhRyIWGoKTLiXSfiNAWsCTItBBZ5RJGhMLLgVK0WXjAaSQGoXSL9AkUqVKFxBHVlkv7G TXLmKZAsMxR8JERqAURsSDHqBZghRSHgWGHnNpFvEGDsMBUyDZ9NSqSyPBOmVWP2QyqmMWQdESZczy4U QNYdXTAzPMZnXYCzFLUcCYOvUXmoOLYrKMD0FWN4DI QdIEXtXN7SGhHwHJApZCOgYzayRVVwNWXqgi7LVTTzIRMyDTQ8SrSqCBNnXYEfBPveZAXmXOL7WfIpEH BsHEMdRI5GRgAcNDVhUTzdLyymWBWlGURzfu0TJZAzSPIuDyKiFuUxKTYjMFKrIGlwHLAjUIM3BZf5GR GtQNKgZU2GNaYoFOYuOSg3SfJcBMRfLSGnxk4YZMNf QICjPOCvXrOfCHVxGTUkWWouLPUjBQZ5RARbKSRxNHKaKN6UKhQnFQGhUVh1IoSrVBFtFZEzvv5WAPAi FCBmWOL6ClCwMSKaGLIhSQu9ojWprRBiUQj9KN2JF5PqxjNiGmMFBn1Nf028NCFkYBLbPn8PA3qjIp7r ZNLgJZTLZj9EAYs5VgOaMbLmBqouEjLaKfQkJAo1AY kuRMEkGXfrGqN4TzQ+UZe8RBTfSPZqMSCdBaCsLGW7JoebIGYwITOfZ9N7YtusWq6nBGAIRt8+DQpzdG JgbCgmZGUFLsS5JVC6KIamFIJEEy8R ID Date Data Source [id number] 05/14/2020 04:47:29 PM EDT [facility] Name Value Range Interpretation Code Description Data Mira rce(s) Supporting Document(s) Progress Note [facility] OJAQPm0jIdWHLgJa90/NFUmiZWOdu8RbGAfbLYv8TQfgDOVgZ3FxYNC1kQ5kTUK8THnTEwNqSuUtNrK7 lbm [file] dcLAI41Y+/hdmx+WALL STEAMER/5QNG3ZpW2JEJ3os2KnENRtAJfbjlBdHbgJEqdqYDPvKhhBInKcOZhWFtOtVCEg [file] ICAgICAgICAgICAgICAgICAgICAgICAgICAgICAgIC AgICAgICAgICAgICAgICAgICAgICAgICAgICAgICAgICAgDQogICAgICAgICAgICAgICAgICAgICAgIC AgICAgICAgICAgICAgICAgICAgICAgICAgICAgICAgICAgICAgICAgICAgICAgICAgICAgICAgICAgIC AgICAgICAgICAgICAgICAgDQogICAgICAgICAgICAg ICAgICAgICAgICAgICAgICAgICAgICAgICAgICAgICAgICAgICAgICAgICAgICAgICAgICAgICAgICAg ICAgICAgICAgICAgICAgICAgICAgICAgICAgDQogICAgICAgICAgICAgICAgICAgICAgICAgICAgICAg ICAgICAgICAgICAgICAgICAgICAgICAgICAgICAgIC AgICAgICAgICAgICAgICAgICAgICAgICAgICAgICAgICAgICAgDQogICAgICAgICAgICAgICAgICAgIC AgICAgICAgICAgICAgICAgICAgICAgICAgICAgICAgICAgICAgICAgICAgICAgICAgICAgICAgICAgIC AgICAgICAgICAgICAgICAgICAgDQogICAgICAgICAg ICAgICAgICAgICAgICAgICAgICAgICAgICAgICAgICAgICAgICAgICAgICAgICAgICAgICAgICAgICAg ICAgICAgICAgICAgICAgICAgICAgICAgICAgICAgDQogICAgICAgICAgICAgICAgICAgICAgICAgICAg ICAgICAgICAgICAgICAgICAgICAgICAgICAgICAgIC AgICAgICAgICAgICAgICAgICAgICAgICAgICAgICAgICAgICAgICAgDQogICAgICAgICAgICAgICAgIC AgICAgICAgICAgICAgICAgICAgICAgICAgICAgICAgICAgICAgICAgICAgICAgICAgICAgICAgICAgIC AgICAgICAgICAgICAgICAgICAgICAgDQogICAgICAg ICAgICAgICAgICAgICAgICAgICAgICAgICAgICAgICAgICAgICAgICAgICAgICAgICAgICAgICAgICAg ICAgICAgICAgICAgICAgICAgICAgICAgICAgICAgICAgDQogICAgICAgICAgICAgICAgICAgICAgICAg ICAgICAgICAgICAgICAgICAgICAgICAgICAgICAgIC GlHKZmUJSzNJPrYQToTTSvNGWnAWQlSGCfHVAcMJIjLIEsEUWgCKSvQXVoHQs3C6wjCWZvVDAkUX4iSP d3Jz8+KGeXFjNgPZS0xrXeiK0QSJ2uu7FmENcuYDOis4DuZUo7NL5KPLKoEHfuGD7FDTyozj7XKKDyYS MrdHSPa4vcTwVtCFQ0FAXpHtpiOB1YREIdG6alzmUc OGXdHRHWHKrgQGAPICovFRAHTDTwGFClYsDnLBocYY3Rs3NkoFJ1VKb+Os2ZSW1nr7VzTPlzQIErAR3j fp2CLYnDXuBsM7PqmcW8QMOeDZVwXo9VEIGnUJVhxHCiLsSvDBJDIfNmO8WmkH65EJQTJs8+DQplbmRv WjfQFqQlIADoy6NaEHv7HP2NZRJeMXy1cDAyJEBsL9 Xcn2QyUi76PBVmRzzsVNW6jTetnjBBNFgejazyifxyXHCkVXCeYq6nEx3jNLWmFGExWrHdVUCTEC2WBU UoVOXymQOcNQArGYHRTM8WBCbyYGN1ZFEmkoCtgHCmOWwgXO1INXTackLeRzXtKUBMUOk+Ef9DET2qb7 GrXXmeHdPmLG3zkn2VODqCPpTjN4R6hBLsM6K0BPez Kj4VYHNxIUVmUidxFYJODEjrNG2HMP3xipU4WT3SzHVoZHDgCZCgnGWgTBg7M46bnQAqZZquZZ7HSZJ+ Deyanira+Hl7JQFQlWDLuIXUvHdIrLAMACbXwJ2DqZ8OJc5LtY9RbRW69zLmoehOmHJzzPF1WOP2jJFDeJPVL VW9FsVDbrS7yirZoXWCaWIHYBoAoI72llFQfPCBpRH LbMVNsRo3OHJZxU0UjjfEreDdvcqMiTVYwYMOIZD5TFHytxjCgnXFzoQhmNO43rOtpAI6EPh4ROaWrII 7ahv7NmSRlDv8XBMTlKH4AOORjMNXgYULkZOZ3ZQLiKuZwJGszVTIjUIPjUXA4AVZmRSTuPW1JBlLqQF SdDWUwUhTeLLPpYGZvsz1ZSKXzTKJ3FRN4WvJzZZNa KYOoIGssAVNeZHHhGYK9YBNhFRMnOC1KQuVnTLBgFEQqTOoeNJEnWHDxda1IYUBzMJWwHrH6ZCTjOOJx BNFgNLzoZSHqNVY7SlV9WKLlELWrAA8XCbJaWUIxYVs8GGdoZFHgCHTlvg0DCRNjSEGpNCVvRoXnXMJd LQZhPHdeKJWmQWTfVBEqEDDrEZYhLQ4NFaAqVBQbIU MrWAMhZUGcDCLeqy1JKDYjCXLgLKU3WLGtVUAfSJLyQLhtFMVlCXC9MUP0IQCqISTmFN5SZmPzYBAjCO G1WMLgMYTzEZSpok0JWCIbPAQsRBw7TGUtASCkNSLuMNxaXCUsIFJ2JZE8EQRdDADaCN0BWdWsAMHwJV vcHARaEWDwKZJwpy7WYKPeRHRaAxOgOJXhWEIfVQXu JBwxMLMeLIM5NFxsAZEqVCFoXM2BHnZmDTQjOXt5JDPaIOIcHDUkos4WBDExJZB9CZhvSHMiZPJyYOPs SYvaNNYfZFHzKYY4INFbHANhED3PUaXmFBKgIOX8TBAgRSYmJNToyk4HSOKbMWL0BEY2QqLcXLLnBRBc VXiiBRDlBHIrLZY2XBQaQAJqHF4KXnEjTWWuFVU6IC piKYHnXOUeta0TQOUgSTY4Nal1AqOjAXViEEFmCVqqVCGoWYYuLFCwKFLsRXSkID2SOxPhCWSkVVEqPI dbZYBxCPTbrm1VKGLcMUM0Yxe8QmSaNTTqTIQnOVgnYBMhPAM7MTr5DEEuQVZqTF2PDeUxDLHhXJGdHs WzLHHxFDOrke0LRNPeGLW2CEFjYVMoMONxJIZpIYk4 ckCwnSPaZQx2VP8BE5YzreNpTxFEFu6Jb462PMThRWLqPu6XG7ltOk0dSLGeVCNGFw9RGBi0EENwQmP8 EkU9XXOlDfedKaEaN9GrIDlkPfSeKlk4XaC+KUzkBaKrEbvrLqspFVLeHlSbOgE3OtP3RXEiQhU6JTRd Bg3zSUPOUb1+IAhtiTUbiZbnTQDQBhS0WiB6QTdiTBBPOl4O ID Date Data Source [id number] 04/25/2020 10:19:40 AM EST [facility] Name Value Range Interpretation Code Description Data Mira rce(s) Supporting Document(s) Progress Note [facility] CRZYKh8cTpNBQoJa88/WJEedLEPcn1LtAUkjVGi2MTpkEGAtA0YkUZI1dM5aCRN3GBgMTpCyUqOaXhV7 lbm [file] eMrQsKkIvC77IUAGjb7wgOblU/López/dIYdXt+IT0ddVRKmeg7nGq2UdetMIUh84Ww2OhxL3pnIf9qAQAZ [file] AgICAgICAgICAgICAgICAgICAgICAgICAgICAgICAgICAgICAgICAgICAgICAgICAgICAgICAgICAgIC YyDLMwPLYsLMJgAVDdRZDeYUFnRUJtPHUhYNAyVZIhEQ6OGIAdXGJbFQBmEXHeRCOuUURkTKKcNFCuKS AgICAgICAgICAgICAgICAgICAgICAgICAgICAgICAg HACnSVIjLXBoMZJlHPSmCDPkPXHrWXWtJQCsNCLdVRHlSWKqSDTcLDNlAA5FFPOuDTLlAAFxAVFwAQXs ICAgICAgICAgICAgICAgICAgICAgICAgICAgICAgICAgICAgICAgICAgICAgICAgICAgICAgICAgICAg BCLzFIQhCXVrLPUvVGAaCDMfDECzMAVpVE7EEMFaOL AgICAgICAgICAgICAgICAgICAgICAgICAgICAgICAgICAgICAgICAgICAgICAgICAgICAgICAgICAgIC RmPIIoYNTzTVPtYVZgNPJeIJVoEHQwITIdOQNnZGTiOMNlDZ5XEVTpFPNrPDScTEPaKBFgRJFiMJQeKG AgICAgICAgICAgICAgICAgICAgICAgICAgICAgICAg EOBfKEEmPBNfZPPvQFNtZCMgKOEtGSTeJQSjMBPuRZYqGXFoSHOaBCInSNWcTK9NRSHySEGmJAUbHYEu ICAgICAgICAgICAgICAgICAgICAgICAgICAgICAgICAgICAgICAgICAgICAgICAgICAgICAgICAgICAg TICnTNTiHMVrAJNzHFPtAQPpVWOhPDGkUMBzFB5ASX AgICAgICAgICAgICAgICAgICAgICAgICAgICAgICAgICAgICAgICAgICAgICAgICAgICAgICAgICAgIC ScFVWxHVPtEGQmVBBkQNEmHHNmMPIwHBAyDGUoTYNzGWSvNRZcPW9RTDQvZSSyMFDgOQMpZOEmSZRfGJ AgICAgICAgICAgICAgICAgICAgICAgICAgICAgICAg GFPrKNQtAIKpQLAzRIRsCCHfCQCuTMQeCZXjQDBpJWEvPBAkQCVzRYItTEGfPBBwDA7KREXlPWMwDJGj ICAgICAgICAgICAgICAgICAgICAgICAgICAgICAgICAgICAgICAgICAgICAgICAgICAgICAgICAgICAg ICAgICAgICAgICAgICAgICAgICAgICAgICAgICAgIA 0KICAgICAgICAgICAgICAgICAgICAgICAgICAgICAgICAgICAgICAgICAgICAgICAgICAgICAgICAgIC LeGRXcNZSdHSZkMYYfHWRoENFqQFAdMTIcBMGyMRJrEPOeKMIkKCWlRG6GNG41gBXrm9Z2WWCzBQ0fvb c/Wc7EEQhrtqHykXIrOA8UKoFlYI7fig5EAfUxAE2g ll9MEGiLCpQzM3E9oIFkUJVjJPTDGxLjE37tIEtyZy84HEflTRVkXkLnRIg7Qr6RAqXpL8yfFDYaJtA2 JUFtYlP6QGNwEtA4DISyJrUlGWRtGGXlFOEdJRRSWYQ3CAGtKaIeVaWsXLMkTSkcJKXOPG0ROfWpY4Ms yZ18YGgOCw8+OEgcopMpPuwVWrA5TUVrv7WkJLl4GS 7FMFZiWnmen8GhAtgtMHHYRPizKF1WLSH0FYX4OGKcIn9ZYRYoT052ouRkYT4SAi9SAmOpRV3pqt8MWo xzIUBtRpyMEpa0WNvvXW3NhVFmNKhMre6afdJjryTCi8ThqzVxoDKZNAKoLPGKiCJdh9NmuXPdGXYBCZ TlvVEqQtG8HpIyMgIcYZT3WlPsSH4rWFphXR9NZHJ4 FTozHJCwQVAmH2eAXqIzYZKsEPUhbObxXP9PXcPxA9YvjbRojBJmThByIEQRIm2+DQplbmRvYmoNCjM4 CVUxy0SnWVo1WD4KMOBiQDvfQM6BUYMvoG0aNMzkFR3OEjUrDFHfYXROKuQyE74ruEKfGEq8G7VxElBz ZGVkRmlsZXMgPDwvTmFtZXMgWyBdDQogID4+ID4+DQ lgNQ7XIVdnwrFrDIRdJx9NCHArYVYyYY5tJPKrSLLxG0P0xIivVZYQMgJcT0pojhcqHH8jTVSjK989fT cczeUrPER9AKGuYp1XIRHkEAI5AMTinKDiRkTkBJFCACchVW6VqSLqGNY8cD4nDLihEBHaLXCxM1jEVp EftHlzHA06yQuyzxKxzAZpHYd+Ul6MNT4fs5XsTUu3 ydLzIWylYVN5JYgzDAReFRIcJPJeWDI1DBO9VAWPChXvJIVnORUvHFclODUkXHCher1PHSEhIMO0DTKi FkLgNWOzWXZkBGkpGKOpGHM2PWZ6QWRfLKNtIX0JJpObWQBuJMSnDEwdTTRkPCTkmp3JGWGqLHSiSOV1 WMElXERxUHIdFGgjIAXdSGL7HkFaSRMgVBEiBB3EPx MnYAQaXOs3BWSoYAChOXRley5MGLBeQBWeJVC8QXQuMSNqTSJhIDspODXbIFPtDhFbKMYkXIXuSP2LEs HaDSBcGAR6DgTzPPGaMBGekf5BVSPmRAUqIIy5SYWhPBNnXNMvJHagQZSlIBE0FFrrKOYtEHMuOF3FUs GlBPKlZJmuVGstMNIrVRHsen0HEFUpHVUtJBPlYlRz INKxUBKiTHloWUJlTVGpMoZ7XZJbJFRqAK3GKvXdKICkMhE2VNDdEDSyBXWhrg2OSZUxRJOxEAr3ESXg PZFoZVPhGThoPLZzTRX2YVr6SLPjELYdCV9CXpBdTQMwTyH7KmPtJGJyFULiwp1QDOJjSJFeFoyrDgPw NOAnEQNeZLixBCIlJPV0Vqs0QKCwIBWcNO2NLdJrWX CoZhg6RUNgSONbWCHtyf6ITNQjJEMwKNZ9VhFsTZAlCATuXIyvJOHlUMD2SJT9WRXqZUPiUY3EUrUeNZ IaJcplLxffLAGyIXTzsr6WQYGqXFDtUVPrTmYvKEHsBTVrEWkvONUqQUKrLUR7AUYrLFExEI7BZbQtMA VnUeV0ICMcFJHqYKEkpw9HHUQvTWN1BtFpBhUmOKHa YYRvGSqrDJLyNNCrBWN1MHEoIEZdTB7RFaMmZTNuSoQ0EYGhNASbJPTxem4WOZBoWOS5MqbwLZEoKZUw PITyTQctNTKpBKG6HJRuNVFtSNDsNI7QBfLyCXWgRaBvEUViQTVlKZLizt0SCXZoMGC7FUrlMXHiFMIo AWXqEAndHPHeQCU2MTlcDESsZEYcUO6JQdUlGHVgQv AvUyWtOXZoPOJgdc6IWZXpAUD3IaQxXZRdWKVoIAOdOKp0jwCvdKArKJk6OL7VK6EryqLqMeqWEj3Sm0 14WLO5SRLdVn3QS8elHp6uHMUlVJDNGh4SXKw2BJH6N0LlVHX8GEU1BiV7H1PuDfP8XIAyUGP4BDIjBe E+GZw7RpjyYzO4KLC7FrznSNxkJpXrSajnOUL9NIW0 IfMkNY1mRBLDVl1+FGatzEBdtQckCZODRuV3AfX9LSviJBSOMc6X ID Date Data Source [id number] 04/23/2020 04:15:59 PM [facility] Name Value Range Interpretation Code Description Data Mira rce(s) Supporting Document(s) Progress Note [facility] [place] XOTZAb5bIvZQLkNu23/TXWevLHEsp5BcMEqxDXy5UYsmGZOkD7YmBBB7gS5jIQR3CLuJGkVeVlTvPyT0 lbm [file] wz5NEIs3whM/CvWdt/g/Tank/0FfwNttpEwa/LyNktYJhUchpNMS9oXRkW/6STvkpOcxGmcg/YzI6lnJX N9d7rCFghr94r8J5bGkH+4E9xp+KR5lY/yRXyCT/Lj+fo8Nl3x/conference translator+u5FT4MlqjpwFS2fnwM0zz7Hr5G [file] [place]/+nFJaISK/V++Zpc8UHsnt7PH3Y34RHo6CzxJMBUyIedbe1t7g5bJvf/+zWes48pY4/nvd0Nsen44 [file] ID Date Data Source [id number] 04/23/2020 07:53:31 AM EST [facility] NT INFORMATIONPatient MRN Name Date of Age Gend*PT [id number] Italia Tran 1975 44 years F SDCXPT Location Admission Date/Time [facility] --- --- EPI ID CSN Admitting Provider [id number] Adebayo Ndiaye MD([id number]) [place] [address] OPERATIVE REPORT OPNAME: ITALIA TRAN Waylon Riddle#: [id number] #: [id number] ADMISSION DATE: 04/18/2020OB: 1975 SEX: F PT TYPE: S SURACCT #: [id number] CARE PHYSICIAN: JACINDA MEI OF OPERATION: 1PREOPERATIVE [...] was present throughoutthe case.LOVE BANKS/ARELY Job #: [id number] DOC #: [id number]: Consultants . Primary Care Physician . Name Value Range Interpretation Code Description Data Mira rce(s) Supporting Document(s) ID Date Data Source [id number] 04/18/2020 10:00:00 PM EST [facility] ([facility] Name Value Range Interpretation Code Description Data Mira rce(s) Supporting Document(s) Laboratory test finding (navigational concept) 250 mg/dL 70-99 [facility] PERFORMED BY [facility]ICAL STAFF ID Date Data Source [id number] 04/18/2020 07:34:00 PM EST [facility] ([facility] [...] formula (MDRD) 14 [facility] ([facility]) Glomerular filtration rate/1.73 sq M pre dicted among blacks [Volume Rate/Area] in Serum or Plasma by Creatinine-based formula (MDRD) 17 [facility] ([facility]) Glomerular filtration rate/1.73 sq M pre dicted among non-blacks [Volume Rate/Area] in Serum or Plasma by Creatinine-based formula (MDRD) Laboratory test result [facility] ([facility]) -- NORMAL KIDNEY FUNCTION OR MILD DISEASE - GFR >OR= 60 CHRONIC KIDNEY DISEASE - GFR 15 - 59 RENAL FAILURE - GFR <15 Est. GFR calculation based on the MDRD study equation, which assumes a steady state for creatinine. Est. GFR should not be used for medication dosing. ID Date Data Source [id number] 04/18/2020 06:31:00 PM EST [facility] ([facility]) Name Value Range Interpretation Code Description Data Mira rce(s) Supporting Document(s) Poc Beta HCG Laboratory test result [facility] NT ([facility]) INTERPRETATION: <5.0 NEGATIVE 5.0-25.0 I NDETERMINATE >25.0 POSITIVE LEVELS BETWEEN 5 AND 25 IU/L MAY INDICATE EARLY AND SHOULD BE REPEATED ON A BLOOD SAMPLE AFTER 48 HOURS. PERFORMED BY [facility] ID Date Data Source [id number] 04/18/2020 06:31:00 PM EST [facility] ([facility]) Name Value Range Interpretation Code Description Data Mira rce(s) Supporting Document(s) Poc Hematocrit 37 % 36.0-47.0 [facility] ([facility]) PERFORMED BY [facility] ID Date Data Source [id number] 04/18/2020 06:31:00 PM EST [facility] ([facility]) Name Value Range Interpretation Code Description Data Mira rce(s) Supporting Document(s) Poc Glucose (iStat) 350 70-99 [facility] ([facility]) PERFORMED BY [facility] ID Date Data Source [id number] 04/18/2020 06:31:00 PM EST [facility] ([facility]) Name Value Range Interpretation Code Description Data Mira rce(s) Supporting Document(s) Potassium [Moles/volume] in Serum or Plasma 4.0 3.6-5.2 [facility] ([facility]) PERFORMED BY [facility] ID Date Data Source [id number] 04/18/2020 05:01:32 PM EST [facility] Name Value Range Interpretation Code Description Data Mira rce(s) Supporting Document(s) POC NOVA GLU 250 mg/dL (70-99) H [facility] [place] PERFORMED BY [facility] ID Date Data Source [id number] 04/18/2020 01:36:01 PM EST [facility] Name Value Range Interpretation Code Description Data Mira rce(s) Supporting Document(s) POC NOVA GLU 334 mg/dL (70-99) [facility] PERFORMED BY [facility] ID Date Data Source [id number] 04/18/2020 02:34:45 PM EST [facility] Name Value Range Interpretation Code Description Data Mira rce(s) Supporting Document(s) SODIUM 136 mmol/L (136-145) [facility] POTASSIUM 4.0 mmol/L (3.6-5.2) [facility] CHLORIDE 92 mmol/L (100-108) L [facility] CO2 36 mmol/L (22-31) [facility] ANION GAP 8 mmol/L (7-16) [facility] UREA NITROGEN 32 mg/dL (7-24) [facility] CREATININE 3.61 mg/dL (0.60-1.00) [facility] BUN/CREAT RATIO 8.9 RATIO (10.0-20.0) L [facility] GLUCOSE 339 mg/dL (70-99) [facility] CALCIUM 8.1 mg/dL (8.4-10.2) L [facility] GFR 14 ml/min/1.73m2 (>59) L [facility] GFR ( AMER) 17 ml/min/1.73m2 (>59) L [facility] GFR INTERPRETATION [facility] --NORMAL KIDNEY FUNCTION OR MILD DISEASE - GFR >OR= 60CHRONIC KIDNEY DISEASE - GFR 15 - 59RENAL FAILURE - GFR <15 Est. GFR calculation based on the MDRDstudy equation, which assumes a steadystate for creatinine. Est. GFR should notbe used for medication dosing. ID Date Data Source [id number] 04/18/2020 01:31:58 PM EST [facility] Name Value Range Interpretation Code Description Data Mira rce(s) Supporting Document(s) POC BHCG [facility] <5.0 IU/L [facility] [place] INTERPRETATION:<5.0 NEGATIVE5.0- 25.0 INDETERMINATE>25.0 POSITIVELEVELS BETWEEN 5 AND 25 IU/L MAY INDICATEEARLY AND SHOULD BE REPEATED DAVID BLOOD SAMPLE AFTER 48 HOURS.PERFORMED BY [facility] ID Date Data Source [id number] 04/18/2020 01:32:08 PM EST [facility] Name Value Range Interpretation Code Description Data Mira rce(s) Supporting Document(s) POC GLU 350 MG/DL (70-99) [facility] PERFORMED BY [facility] ID Date Data Source [id number] 04/18/2020 01:32:08 PM EST [facility] Name Value Range Interpretation Code Description Data Mira rce(s) Supporting Document(s) POC POTASSIUM 4.0 MMOL/L (3.6-5.2) [facility] PERFORMED BY [facility] ID Date Data Source [id number] 04/18/2020 01:32:08 PM EST [facility] Name Value Range Interpretation Code Description Data Mira rce(s) Supporting Document(s) POC HCT 37 % (36.0-47.0) [facility] ID Date Data Source [id number] 04/13/2020 02:00:00 PM EST [facility] Name Value Range Interpretation Code Description Data Mira rce(s) Supporting Document(s) SARS coronavirus 2 RNA Not Detected [facility] This lab was ordered by [facility] and reported by [facility]. ID Date Data Source [id number] 03/18/2020 09:35:44 AM [facility] Name Value Range Interpretation Code Description Data Mira rce(s) Supporting Document(s) Progress Note [facility] [place] AEDHXq0yJaHWPdJj82/YBLfiANZep7KjBHpmFOm2QRmqWFFoG0ZwSJS5nL8tXZU4CPjNPjKhEzDzKYV9 lbm [file] BbX6EBNfZMNfRWt5ICT1UGngWYrxLyYsLA0RYj5RBdB9TXJ6jBXuQk2SErO4HTbTSxXcVV2JFKj= ID Date Data Source [id number] 02/26/2020 11:23:01 AM EST [facility] Name Value Range Interpretation Code Description Data Mira rce(s) Supporting Document(s) EKG [facility] DBNBRs7zPwVSKmByr5LgZlXhGOOsQL2ipuu1U5B3jNNqX4KndOLon8biE3AeX2XxFVRuWBOMPO1ZcUMb jb2 [file] [id number]///Wf/jWg3dt81296t//553/63/ /conference translator//4f/78Rj+3RJ1l7dbi/sDdi/9DNsuVBFGoOBeOA2POAHGCIefVZrfeBuidcRtqyMBYkoNWLsWccT FQubZGEyOnaNUBblGDVfYswFAAcx4LZuTdnDCDzowdgdudaeh/jG6BSDQ0iNlw1ZOi/TdrZRt9wq9rLX nlSNBzj/d5I8l0luOoc0CAtd1NG/WhjFbl6632D2oD RT2a3RqGFUcNBYTvSjBcuE6i3HkM4LHuWex12NoRjRROWqPXox5crFQEYySj/N5IMQ9B9GNIXQkf3yi+ FCrQfYaLSGCWJWw3ByZDRFDTLNkonzGQwz/+orFbiORGp0AXhg3RZbimgxcHaqFdd+5evI/MC9mV63Du K/1I8OMC/Zz86l5twQa5s/H+4vA5dIkqI7CiL4Za+N XzpjxcvrJgmGwDWu3olD/pvm55d79yIBIvPpyB8o6cmxFJoiMfCjp65rJMDf6mDx+M3L+nBGUTI6/kKE BxeI2OFzkzNUoidk60XTOKvsaWeHbdu8p1rJLSFJqLzQpRb1599lEpDJArUX/NL3NBUeizEnNY0FfD8p oOSnpvhP6+WX6P/yYEfzYJi4+NJmRWTLv7KEPSSrrg sA8G+0CDJTVGlj51HgWw4iLkTCGfWNGFHbWh4+Med9RnlSl7motGdNJQ+TLRJnrZxGMtcy++1TxRBbG1 DvgtPDEspC6xOOIL4VkaZpBRl7/beJ1QX631ywkNJUvXQbJ41j//nPbY9Cn/iJNSUKUVLqhs6sEOGK79 2nTcVDOAHYNPxfxrkIvbh6WNy5yH76FMBSqDhOn4Zc [id number]/gN7OENbJZN1rIQGxbkU3eZURSkV1rvJtOt zTUdjJjVC2ASstITKMmVG5ECrYqIJhkA4XbxQXoLBHTimX2ziZpcUZBZPtI6S0VTnijKTPvbPaEvBP4S lBpwQDFqnRJrZBTRyUYFCCQQkGJRiUYFCCQQnKJuaQ [file] [id number]/Yyba7TP2i6QnjOB/cyanide pot [file] [id number]+MmxkzGCqyPxhNERXLVJ9FDJDYISBS3U= ID Date Data Source [id number] 02/26/2020 11:11:16 AM EST [facility] INFORMATIONPatient MRN Name Date of Age Gend*PT [id number] Italia Tran 1975 44 years F OPPT Location Admission Date/Time Visit ID Attending Provider --- --- --- Adebayo Ndiaye MD([id number]) EPI ID CSN Admitting Provider [id number] ---OUTPATIENT / OBSERVATIONAL SURGICAL OR INVASIVE PROCEDUREName: Italia Tran : 1975 Sex: female Care Provider: Jacinda Scherer Physician: Dr. Ndiaye.HISTORY OF PRESENT ILLNESS: 44 years old white female with a history of type 1diabetes and end-stage renal disease. 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 She is currently on dialysis [...] UPPER EXTREMITY LEFT.; Surgeon:Adebayo Ndiaye MD; Location: [facility] [place]; Service: Vascular; Laterality:Left; CATARACT EXTRACTION EXTRACAPSULAR W/ [...] and Tuesday Historical Provider, vitamin D, Ergocalciferol, [id number] UNITS CAPS Take 1 capsule by mouth [...] thyromegaly. No carotid bruits.MENTAL / NEUROLOGICAL STATUS: [id number]: Clear to auscultation. No wheezes, rhonchi or [...] parts of this document, were dictated using [employer] software. A reasonable attempt at proofreading has beenmade to minimize errors. Please call with any questions or corrections.* Name Value Range Interpretation Code Description Data Mira rce(s) Supporting Document(s) ID Date Data Source [id number] 02/26/2020 04:52:57 PM EST [facility] Name Value Range Interpretation Code Description Data Mira rce(s) Supporting Document(s) HEMOGLOBIN A1C @ 8.3 % (4.0-6.0) H [facility] Performed using Siemens [place] immunoassa y.Care must be taken when interpreting ZnA3neomlrca in patients with a hemoglobin variantor decreased erythrocyte lifespan. Values 5.7 - 6.4% suggest prediabetes.Values >=6.5% are diagnostic for diabetes.REFERENCE: DIABETES CARE 2018: 41(S13-S27). EST AVERAGE GLUCOSE 192 mg/dL [facility] ID Date Data Source [id number] 02/26/2020 04:55:53 PM EST [facility] Name Value Range Interpretation Code Description Data Mira rce(s) Supporting Document(s) SODIUM 137 mmol/L (136-145) [facility] POTASSIUM 4.8 mmol/L (3.6-5.2) [facility] CHLORIDE 98 mmol/L (100-108) L [facility] CO2 30 mmol/L (22-31) [facility] ANION GAP 9 mmol/L (7-16) [facility] UREA NITROGEN 43 mg/dL (7-24) H [facility] CREATININE 3.66 mg/dL (0.60-1.00) H [facility] BUN/CREAT RATIO 11.7 RATIO (10.0-20.0) [facility] GLUCOSE 246 mg/dL (70-99) [facility] CALCIUM 8.7 mg/dL (8.4-10.2) [facility] GFR 14 ml/min/1.73m2 (>59) L [facility] GFR ( AMER) 16 ml/min/1.73m2 (>59) L [facility] GFR INTERPRETATION [facility] --NORMAL KIDNEY FUNCTION OR MILD DISEASE - GFR >OR= 60CHRONIC KIDNEY DISEASE - GFR 15 - 59RENAL FAILURE - GFR <15 Est. GFR calculation based on the MDRDstudy equation, which assumes a steadystate for creatinine. Est. GFR should notbe used for medication dosing. ID Date Data Source [id number] 02/26/2020 04:26:43 PM EST [facility] Name Value Range Interpretation Code Description Data Mira rce(s) Supporting Document(s) WBC 4.0 10*3/uL (4.1-11.0) L [facility] RBC 3.02 10*6/uL (4.00-5.40) L [facility] HGB 10.6 g/dL (12.0-16.0) L [facility] HCT 32.1 % (36.0-47.0) [facility] MCV 106.3 fL (80.0-95.0) [facility] MCH 35.1 pg (27.0-32.0) [facility] MCHC 33.0 g/dL (32.0-36.0) [facility] RDW 17.5 % (10.5-14.5) H [facility] PLT 139 10*3/uL (150-450) L [facility] MPV 9.2 fL (7.1-10.7) [facility] ID Date Data Source [id number] 02/23/2020 08:30:00 AM EST [facility] Name Value Range Interpretation Code Description Data Mira rce(s) Supporting Document(s) SARS coronavirus 2 RNA [facility] This lab was ordered by [facility] and reported by [facility] [facility]. ID Date Data Source [id number] 02/24/2020 02:10:47 PM EST [facility] Name Value Range Interpretation Code Description Data Mira rce(s) Supporting Document(s) SARS-COV-2 KENYATTA [facility] Millie mantilla [facility] Not DetectedReference range: Not Detecte d This nucleic acid amplification test was developed and its performance characteristics determined by [employer]. Nucleic acid amplification tests include PCR and [...] detected) result in this assay. Performed At: [employer] [address] [place], [place] [id number] Rosaura Horner PhD Ph:[phone] Procedure Social History Code Duration Value Status Description Data Source(s ) Smoking 12/15/2020 12:00:00 AM EDT Never Smoker completed Never S moker eCW1 ([facility]) Smoking 2020 12:00:00 AM EDT Never Smoker completed Never S moker eCW1 ([facility]) Smoking 2020 12:00:00 AM EDT Never Smoker completed Never S moker eCW1 ([facility]) Smoking 2020 12:00:00 AM EDT Never Smoker completed Never S moker eCW1 ([facility]) Smoking 2020 12:00:00 AM EDT Never Smoker completed Never S moker eCW1 ([facility]) Smoking 10/17/2020 12:00:00 AM EDT Never Smoker completed Never S moker eCW1 ([facility]) Smoking 09/24/2020 12:00:00 AM EDT Never Smoker completed Never S moker eCW1 ([facility]) Smoking 09/24/2020 12:00:00 AM EDT Never Smoker completed Never S moker eCW1 ([facility]) Smoking 09/12/2020 12:00:00 AM EDT Never Smoker completed Never S moker eCW1 ([facility]) Smoking 09/12/2020 12:00:00 AM EDT Never Smoker completed Never S moker eCW1 ([facility]) Smoking 09/12/2020 12:00:00 AM EDT Never Smoker completed Never S moker eCW1 ([facility]) Smoking 08/20/2020 12:00:00 AM EDT Never Smoker completed Never S moker eCW1 ([facility]) Smoking 08/20/2020 12:00:00 AM EDT Never Smoker completed Never S moker eCW1 ([facility]) Smoking 08/20/2020 12:00:00 AM EDT Never Smoker completed Never S moker eCW1 ([facility]) Smoking 08/13/2020 12:00:00 AM EDT Never Smoker completed Never S moker eCW1 ([facility]) Smoking 08/06/2020 12:00:00 AM EDT Never Smoker completed Never S moker eCW1 ([facility]) Smoking 07/30/2020 12:00:00 AM EDT Never Smoker completed Never S moker eCW1 ([facility]) Smoking 07/23/2020 12:00:00 AM EDT Never Smoker completed Never S moker eCW1 ([facility]) Smoking 07/16/2020 12:00:00 AM EDT Never Smoker completed Never S moker eCW1 ([facility]) Smoking 07/09/2020 12:00:00 AM EDT Never Smoker completed Never S moker eCW1 ([facility]) Smoking 07/09/2020 12:00:00 AM EDT Never Smoker completed Never S moker eCW1 ([facility]) Smoking 07/02/2020 12:00:00 AM EDT Never Smoker completed Never S moker eCW1 ([facility]) Smoking 07/02/2020 12:00:00 AM EDT Never Smoker completed Never S moker eCW1 ([facility]) Smoking 03/19/2020 12:00:00 AM EST Patient has never smoked co mpleted Patient has never smoked [facility] ([facility]) Smoking 03/07/2020 12:00:00 AM EST Patient has never smoked co mpleted Patient has never smoked [facility] ([facility]) Alcohol intake 02/26/2020 12:00:00 AM EST No completed [facility] Smoking 02/26/2020 12:00:00 AM EST Never smoker completed Never s moker [facility] Vital Signs ID Date Data Source UNK Name Value Range Interpretation Code Description Data Source(s) Body weight 147 [lb_av] 147 [lb_av] eCW1 ([facility]) Body weight 66.68 kg 66.68 kg W1 ([facility]) Body height 64 [in_i] 64 [in_i] eCW1 ([facility]) Body mass index (BMI) [Ratio] 25.23 kg/m2 25.23 kg/m2 W1 ([facility]) Heart rate 82 /min 82 /min eCW1 ([facility]) Respiratory rate 16 /min 16 /min eCW1 ([facility]) Body temperature 96.4 [degF] 96.4 [degF] eCW1 ( [facility]) Systolic blood pressure 208 mm[Hg] 208 mm[Hg] e CW1 ([facility]) Diastolic blood pressure 89 mm[Hg] 89 mm[Hg] eCW1 ([facility]) Body height 64 [in_i] 64 [in_i] eCW1 ([facility]) Body weight 147 [lb_av] 147 [lb_av] eCW1 ([facility]) Body mass index (BMI) [Ratio] 25.23 kg/m2 25.23 kg/m2 eCW1 ([facility]) Heart rate 88 /min 88 /min eCW1 ([facility]) Respiratory rate 16 /min 16 /min eCW1 ([facility]) Body temperature 97.8 [degF] 97.8 [degF] eCW1 ( [facility]) Systolic blood pressure 242 mm[Hg] 242 mm[Hg] e CW1 ([facility]) Diastolic blood pressure 101 mm[Hg] 101 mm[Hg] eCW1 ([facility]) Body weight 147 [lb_av] 147 [lb_av] eCW1 ([facility]) Body weight kg eCW1 ([facility]) Body height 64 [in_i] 64 [in_i] eCW1 ([facility]) Body mass index (BMI) [Ratio] 25.23 kg/m2 25.23 kg/m2 eCW1 ([facility]) Heart rate 82 /min 82 /min eCW1 ([facility]) Respiratory rate 16 /min 16 /min eCW1 ([facility]) Body temperature 98.4 [degF] 98.4 [degF] eCW1 ( [facility]) Systolic blood pressure 200 mm[Hg] 200 mm[Hg] e CW1 ([facility]) Diastolic blood pressure 83 mm[Hg] 83 mm[Hg] eCW1 ([facility]) Body weight 147 [lb_av] 147 [lb_av] eCW1 ([facility]) Body height 64 [in_i] 64 [in_i] eCW1 ([facility]) Body mass index (BMI) [Ratio] 25.23 kg/m2 25.23 kg/m2 eCW1 ([facility]) Heart rate 63 /min 63 /min eCW1 ([facility]) Respiratory rate 18 /min 18 /min eCW1 ([facility]) Body temperature 97.0 [degF] 97.0 [degF] eCW1 ( [facility]) Systolic blood pressure 203 mm[Hg] 203 mm[Hg] e CW1 ([facility]) Diastolic blood pressure 86 mm[Hg] 86 mm[Hg] eCW1 ([facility]) Body weight 147 [lb_av] 147 [lb_av] eCW1 ([facility]) Body weight kg eCW1 ([facility]) Body height 64 [in_i] 64 [in_i] eCW1 ([facility]) Body mass index (BMI) [Ratio] 25.23 kg/m2 25.23 kg/m2 eCW1 ([facility]) Heart rate 66 /min 66 /min eCW1 ([facility]) Respiratory rate 18 /min 18 /min eCW1 ([facility]) Body temperature 98.5 [degF] 98.5 [degF] eCW1 ( [facility]) Systolic blood pressure 207 mm[Hg] 207 mm[Hg] e CW1 ([facility]) Diastolic blood pressure 86 mm[Hg] 86 mm[Hg] eCW1 ([facility]) Body weight 147 [lb_av] 147 [lb_av] eCW1 ([facility]) Body weight kg eCW1 ([facility]) Body height 64 [in_i] 64 [in_i] eCW1 ([facility]) Body mass index (BMI) [Ratio] 25.23 kg/m2 25.23 kg/m2 eCW1 ([facility]) Heart rate 77 /min 77 /min eCW1 ([facility]) Respiratory rate 18 /min 18 /min eCW1 ([facility]) Body temperature 98.4 [degF] 98.4 [degF] eCW1 ( [facility]) Systolic blood pressure 146 mm[Hg] 146 mm[Hg] e CW1 ([facility]) Diastolic blood pressure 82 mm[Hg] 82 mm[Hg] eCW1 ([facility]) Body weight 147 [lb_av] 147 [lb_av] eCW1 ([facility]) Body weight kg eCW1 ([facility]) Body height 64 [in_i] 64 [in_i] eCW1 ([facility]) Body mass index (BMI) [Ratio] 25.23 kg/m2 25.23 kg/m2 eCW1 ([facility]) Heart rate 71 /min 71 /min eCW1 ([facility]) Respiratory rate 17 /min 17 /min eCW1 ([facility]) Body temperature 98.2 [degF] 98.2 [degF] eCW1 ( [facility]) Systolic blood pressure 150 mm[Hg] 150 mm[Hg] e CW1 ([facility]) Diastolic blood pressure 72 mm[Hg] 72 mm[Hg] eCW1 ([facility]) Body weight 147 [lb_av] 147 [lb_av] eCW1 ([facility]) Body weight kg eCW1 ([facility]) Body height 64 [in_i] 64 [in_i] eCW1 ([facility]) Body mass index (BMI) [Ratio] 25.23 kg/m2 25.23 kg/m2 eCW1 ([facility]) Heart rate 68 /min 68 /min eCW1 ([facility]) Respiratory rate 18 /min 18 /min eCW1 ([facility]) Body temperature 98.6 [degF] 98.6 [degF] eCW1 ( [facility]) Systolic blood pressure 209 mm[Hg] 209 mm[Hg] e CW1 ([facility]) Diastolic blood pressure 90 mm[Hg] 90 mm[Hg] eCW1 ([facility]) Systolic blood pressure 210 mm[Hg] 210 mm[Hg] e CW1 ([facility]) Body weight 147 [lb_av] 147 [lb_av] eCW1 ([facility]) Diastolic blood pressure 90 mm[Hg] 90 mm[Hg] eCW1 ([facility]) Body weight kg eCW1 ([facility]) Body height 64 [in_i] 64 [in_i] eCW1 ([facility]) Body mass index (BMI) [Ratio] 25.23 kg/m2 25.23 kg/m2 eCW1 ([facility]) Heart rate 74 /min 74 /min eCW1 ([facility]) Respiratory rate 20 /min 20 /min eCW1 ([facility]) Body temperature 98.2 [degF] 98.2 [degF] eCW1 ( [facility]) Body weight 147 [lb_av] 147 [lb_av] eCW1 ([facility]) Body weight kg eCW1 ([facility]) Body height 64 [in_i] 64 [in_i] eCW1 ([facility]) Body mass index (BMI) [Ratio] 25.23 kg/m2 25.23 kg/m2 eCW1 ([facility]) Heart rate 65 /min 65 /min eCW1 ([facility]) Respiratory rate 18 /min 18 /min eCW1 ([facility]) Body temperature 98 [degF] 98 [degF] eCW1 ([facility]) Systolic blood pressure 179 mm[Hg] 179 mm[Hg] e CW1 ([facility]) Diastolic blood pressure 77 mm[Hg] 77 mm[Hg] eCW1 ([facility]) Body weight 147 [lb_av] 147 [lb_av] eCW1 ([facility]) Body weight kg eCW1 ([facility]) Body height 64 [in_i] 64 [in_i] eCW1 ([facility]) Body mass index (BMI) [Ratio] 25.23 kg/m2 25.23 kg/m2 eCW1 ([facility]) Heart rate 66 /min 66 /min eCW1 ([facility]) Respiratory rate 18 /min 18 /min eCW1 ([facility]) Body temperature 97.9 [degF] 97.9 [degF] eCW1 ( [facility]) Systolic blood pressure 150 mm[Hg] 150 mm[Hg] e CW1 ([facility]) Diastolic blood pressure mm[Hg] eCW1 ([facility]) Body weight 147.5 [lb_av] 147.5 [lb_av] eCW1 ([facility]) Body height 64 [in_i] 64 [in_i] eCW1 ([facility]) Body mass index (BMI) [Ratio] 25.32 kg/m2 25.32 kg/m2 eCW1 ([facility]) Heart rate 72 /min 72 /min eCW1 ([facility]) Respiratory rate 16 /min 16 /min eCW1 ([facility]) Body temperature 97.1 [degF] 97.1 [degF] eCW1 ( [facility]) Systolic blood pressure 201 mm[Hg] 201 mm[Hg] e CW1 ([facility]) Diastolic blood pressure 79 mm[Hg] 79 mm[Hg] eCW1 ([facility]) Body height 64 [in_i] 64 [in_i] [facility] ([facility]) 5'4" Heart rate 61 /min 61 /min [facility] ([facility]) Systolic blood pressure--sitting 218 mm[Hg] 218 mm[Hg] [facility] ([facility]) CBP, adult cuff/Ra Diastolic blood pressure--sitting 99 mm[Hg] 99 mm[Hg] [facility] ([facility]) CBP, adult cuff/Ra Systolic blood pressure 154 mm[Hg] 154 mm[Hg] [facility] Diastolic blood pressure 78 mm[Hg] 78 mm[Hg] [facility] Heart rate 63 /min 63 /min [facility] Body height 162.6 cm 162.6 cm [facility] Body weight 67.132 kg 67.132 kg [facility] Body mass index (BMI) [Ratio] 25.40 kg/m2 25.40 kg/m2 [facility] Oxygen saturation in Arterial blood by Pulse oximetry 99 % 99 % [facility] Body weight 70.200 kg 70.200 kg [facility] ([facility] Oxygen saturation in Arterial blood by Pulse oximetry 100 % 100 % [facility] ([facility]) Heart rate 68 /min 68 /min [facility] ([facility]) Systolic blood pressure 178 mm[Hg] 178 mm[Hg] M EDENT ([facility]) Diastolic blood pressure 88 mm[Hg] 88 mm[Hg] [facility] ([facility]) Body temperature 97.5 [degF] 97.5 [degF] [facility] ([facility]) Respiratory rate 16 /min 16 /min [facility] ( [facility]) Body weight 154.75 [lb_av] 154.75 [lb_av] MEDEN T ([facility]) Diastolic blood pressure 76 mm[Hg] 76 mm[Hg] [facility] ([facility]) Systolic blood pressure 178 mm[Hg] 178 mm[Hg] M EDENT ([facility]) Heart rate 62 /min 62 /min [facility] ([facility]) Body temperature 97.2 [degF] 97.2 [degF] [facility] ([facility]) Respiratory rate 12 /min 12 /min [facility] ( [facility]) Body height 64 [in_i] 64 [in_i] [facility] ([facility]) 5'4" Body weight 153.00 [lb_av] 153.00 [lb_av] MEDEN T ([facility]) Body mass index (BMI) [Ratio] 26.3 kg/m2 26.3 k g/m2 [facility] ([facility]) Body weight 69.401 kg 69.401 kg [facility] ([facility]) Oxygen saturation in Arterial blood by Pulse oximetry 100 % 100 % [facility] ([facility]) ID Date Data Source [id number] 05/14/2020 04:47:29 PM EDT [facility] Name Value Range Interpretation Code Description Data Source(s) WEIGHT RECORDED 156.09 lb 156.09 lb [facility] Body [facility] Planned Activity Planned Date Details Description Data Source (s) Fluconazole 150 MG Oral Tablet 09/12/2020 12:00:00 AM EDT eCW1 ([facility]) Fluconazole 150 MG Oral Tablet 09/12/2020 12:00:00 AM EDT eCW1 ([facility]) Fluconazole 150 MG Oral Tablet 09/12/2020 12:00:00 AM EDT eCW1 ([facility]) Acetaminophen 325 MG / Hydrocodone Bitartrate 5 MG Ora l Tablet 12/12/2014 12:00:00 AM EDT [facility] Biotin 10 MG Oral Tablet [facility] Aspirin 325 MG Oral Tablet [facility] atorvastatin 10 MG Oral Tablet [facility] Amlodipine 10 MG Oral Tablet [facility] 1 ML heparin sodium, porcine 1000 UNT/ML Injection [facility] 1 ML heparin sodium, porcine 1000 UNT/ML Injection [facility] Norgestim-Eth Estrad Triphasic (TRI-SPRINTEC) 0.18/0.215/0.2 5 MG-35 MCG TABS [facility] torsemide 20 MG Oral Tablet [facility] lanthanum carbonate 500 MG Chewable Tablet [facility] ferric citrate 1000 MG Oral Tablet [facility]
[2021-01-08 23:22] LABS: CK-MB VALUE MASS 8.8 NG/ML (<3.6); CPK CREATINE PHOSPHOKINASE 97 U/L (26-192); MB/CK RELATIVE INDEX 9.07 (< OR =4); TROPONIN I 0.13 NG/ML (< 0.10)
[2021-01-08 23:23] LABS: NT-PRO BNP > 175000 PG/ML (<125)
[2021-01-08] MEDS ORDERED: HOME MED LIST COMPLETE! XX SCH (23:35)
[2021-01-08] MEDS ORDERED: GLUCOSE 4GM CHEW TABLET PO PRN (23:50)
[2021-01-08] MEDS ORDERED: DEXTROSE 50% 50 ML SYRINGE IV PRN (23:50)
[2021-01-08] MEDS ORDERED: ACETAMINOPHEN TAB 650MG DOSE (2X325MG) PO PRN (23:50)
[2021-01-08] MEDS ORDERED: GLUCAGON INJ 1MG VIAL SC PRN (23:50)
--- NOTE | 2021-01-08 23:54 | HPEPDOC ---
[facility] Medical History & Physical Date of Admission Jan 09, 2021 Date of Service: Jan 09, 2021 Attending Physician: FAN RIVERA MD History and Physical CHIEF COMPLAINT: [45 y/o female presents with c/o diarrhea and sob x1 week, missed dialysis x2] HISTORY OF PRESENT ILLNESS: [This is a 45 y/o female with a pmh of esrd on tths dialysis s/p failed renal transplant, dm1 s/p failed pancreatic transplant, hld, htn, gerd who presents to our ED with complaints of fatigue, malaise, diarrhea, and sob x1 week that has caused her to miss her last two dialysis sessions. Patient tells me that her last dialysis session was on 01/03. Patient states that after this, she began to develop malaise and diarrhea that have progressively gotten worse. Patient states that she is having approximately 3 loose stools per day at this time but denies any bloody or dark stools. Patient states that she has also noticed an increase in shortness of breath over the past few days. Patient admits to some associated nausea, abdominal discomfort, chills. Patient denies any fevers, uri sx, chest pain, palpitations, chest tightness, kayla abd pain, vomiting.] PAST MEDICAL HISTORY: 1. [See HPI PAST SURGICAL HISTORY: 1. [B/l cataract removal]. 2. [LUE fistula]. 3. [Kidney/pancreas transplant with subsequent failure 4. Colonoscopy 5. Uterine ablation 6. Tubal ligation 7. Left 5th toe amputation]. SOCIAL HISTORY: Tobacco use:[Denies] ETOH: [Denies] Illicit drug use: [Denies] FAMILY HISTORY: Reviewed - none pertinent ALLERGIES: Please see below. REVIEW OF SYSTEMS: CONSTITUTIONAL: [See HPI]. HEENT: [Denies uri sx]. CARDIOVASCULAR: [Denies chest pain, palpitations]. RESPIRATORY: [See HPI]. GASTROINTESTINAL: [See HPI]. GENITOURINARY: [Denies dysuria]. SKIN: [Denies rash]. MUSCULOSKELETAL: [Denies acute joint/back pain]. NEUROLOGICAL: [Denies syncope, paresthesias]. ENDOCRINE: [Hx of DM1]. HEMATOLOGIC/LYMPHATIC: [Denies hx of vte]. HOME MEDICATIONS: Please see below. PHYSICAL EXAMINATION: VITAL SIGNS: Please see below. GENERAL APPEARANCE: [This is a fatigued appearing 45 y/o female. She is alert and oriented to questioning and does not appear to be in any acute distress]. HEENT: [No mass or lesion. No scleral icterus. Nares patent. Oral mucosa dry]. CARDIOVASCULAR: [Regular rate, rhythm. No murmurs, rubs, gallops]. LUNGS: [Decreased breath sounds b/l. No wheezing, rales, rhonchi]. ABDOMEN: [Soft, nontender]. MUSCULOSKELETAL: [No joint deformity noted]. EXTREMITIES: [Mild edema noted to b/l lower extremities. There are overlying skin changes consistent with peripheral vascular disease. Pulses intact]. NEUROLOGICAL: [Speech clear. A+Ox3. No focal deficit]. PSYCHIATRIC: [Mood and affect appear appropriate]. LABORATORY DATA: See below. IMAGING: [CXR: FINDINGS: Lungs: Persistent right base infiltrate and atelectasis. Pleural spaces: Increased right pleural effusion since the prior study. Heart/Mediastinum: The heart and mediastinum are unchanged. Bones/joints: Unremarkable. IMPRESSION: Mild right pleural effusion, increased since 08/29/2020. ] MICROBIOLOGY: Please see below. ASSESSMENT: [This is a 45 y/o female with a pmh of esrd on tths dialysis s/p failed renal transplant, dm1 s/p failed pancreatic transplant, hld, htn, gerd who presents to our ED with complaints of fatigue, malaise, diarrhea, and sob x1 week that has caused her to miss her last two dialysis sessions]. . PLAN: 1. [Diarrhea - Suspect c diff infection, patient has history of this - GI panel ordered - Will begin empiric dificid awaiting gi panel - will give probiotic - admit to med surg for w/u and tx 2. SOB - most likely secondary to pleural effusion which most likely developed 2/2 missed dialysis 3. Missed dialysis - Patient's last dialysis session was 5 days ago, will consult nephrology in the am for assistance in arranging this 4. Hyperkalemia - patients potassium acutely elevated to 5.8 - will give one dose of valtessa over kayexalate i/s/o diarrhea 5. DM1 - sliding scale insulin - hypoglycemic protocol - continue at home basal insulin doses 6. HTN - continue losartan, hydralazine 7. Depression/anxiety - continue lexapro DVT prophylaxis - heparin]. Vital Signs Vital Signs Date Time Temp Pulse Resp B/P (MAP) Pulse Ox O2 Delivery O2 Flow Rate FiO2 01/08/21 20:03 98.2 63 19 191/87 (121) 100 Room Air Laboratory Data Labs 24H Laboratory Tests 2 01/08/21 21:01: Immature Granulocyte % (Auto) 0.2, Neutrophils (%) (Auto) 73.5H, Lymphocytes (%) (Auto) 12.9L, Monocytes (%) (Auto) 9.5H, Eosinophils (%) (Auto) 2.9, Basophils (%) (Auto) 1.0, Neutrophils # (Auto) 4.3, Lymphocytes # (Auto) 0.8L, Monocytes # (Auto) 0.6, Eosinophils # (Auto) 0.2, Basophils # (Auto) 0.1, Nucleated Red Blood Cells % (auto) 0.0, Prothrombin Time 15.7H, Prothromb Time International Ratio 1.21, Anion Gap 16, Glomerular Filtration Rate 7.5L, Lactic Acid Level 2.0 , Calcium Level 9.0, Total Bilirubin 0.6, Direct Bilirubin 0.2, Aspartate Amino Transf (AST/SGOT) 18, Alanine Aminotransferase (ALT/SGPT) 32, Alkaline Phosphatase 361H, Total Creatine Kinase 97, Creatine Kinase MB 8.8H, Creatine Kinase MB Relative Index 9.07H, Troponin I 0.13H, BP-Rmf-F-Type Natriuretic Peptide > [id number], Total Protein 7.6, Albumin 3.6, Albumin/Globulin Ratio 0.9L, Coronavirus (COVID-19)(PCR) NEGATIVE, Influenza Type A (RT-PCR) NEGATIVE, Influenza Type B (RT-PCR) NEGATIVE, Respiratory Syncytial Virus (PCR) NEGATIVE CBC/BMP Laboratory Tests 01/08/21 21:01 Home Medications Scheduled Ergocalciferol (Vitamin D2) (Vitamin D2) 50,000 Units Cap, 50,000 UNITS PO QWEEK WEDNESDAYS Escitalopram Oxalate (Lexapro) 10 Mg Tab, 10 MG PO QHS Folic Acid/Vit B Complex and C (Lesly-Rocío Tablet) 0.8 Mg Tablet, 1 TAB PO DAILY Hydralazine HCl (Hydralazine HCl) 10 Mg Tablet, 10 MG PO BID Insulin Human Lispro (Humalog) 100 Unit/1 Ml Vial, 1 DOSE SC ACHS PER SLIDING SCALE Insulin Human NPH (Humulin N) 100 Unit/1 Ml Vial, 10 UNITS SC QAM Insulin Human NPH (Humulin N) 100 Unit/1 Ml Vial, 8 UNITS SC QPM Losartan Potassium (Losartan Potassium) 100 Mg Tablet, 100 MG PO DAILY Allergies Coded Allergies: vancomycin (Verified Adverse Reaction, Intermediate, Hallucinations, 06/10/20) A-FIB/CHADSVASC A-FIB History Current/History of A-Fib/PAF?: No Current PO Anticoag Therapy: No ALEXEI HEIN Jan 08, 2021 23:54
--- OUTSIDE RECORDS SUMMARY | 2021-01-08 23:56 | CCD ---
Author Author [facility] Organization [facility] Address Unknown Phone Unavailable Care Team Providers Care Teacher Instrumental Name Role Phone BROOKE LR MD Unavailable Unavailable BROKOE LR MD Unavailable Unavailable BROOKE LR MD Unavailable Unavailable BROOKE LR MD Unavailable Unavailable NILSON RG MD Unavailable Unavailable NILSON RG MD Unavailable Unavailable NILSON RG MD Unavailable Unavailable NILSON RG MD Unavailable Unavailable PODOLAK, A TASHA Unavailable Unavailable PODOLAK, A TASHA Unavailable Unavailable PODOLAK, A TASHA Unavailable Unavailable PODOLAK, A TASHA Unavailable Unavailable Brandy Ray ONLINE COMMUNICATIONS SPECIALIST Unavailable Unavailable Brandy Ray ONLINE COMMUNICATIONS SPECIALIST Unavailable Unavailable Brandy Ray ONLINE COMMUNICATIONS SPECIALIST Unavailable Unavailable Brandy Ray ONLINE COMMUNICATIONS SPECIALIST Unavailable Unavailable Thankachan, Reeba ONLINE COMMUNICATIONS SPECIALIST Unavailable Unavailable Thankachan, Reeba ONLINE COMMUNICATIONS SPECIALIST Unavailable Unavailable Thankachan, Reeba ONLINE COMMUNICATIONS SPECIALIST Unavailable Unavailable Thankachan, Reeba ONLINE COMMUNICATIONS SPECIALIST Unavailable Unavailable Thankachan, Reeba ONLINE COMMUNICATIONS SPECIALIST Unavailable Unavailable Thankachan, Reeba ONLINE COMMUNICATIONS SPECIALIST Unavailable Unavailable Thankachan, Reeba ONLINE COMMUNICATIONS SPECIALIST Unavailable Unavailable Thankachan, Reeba ONLINE COMMUNICATIONS SPECIALIST Unavailable Unavailable Thankachan, Reeba ONLINE COMMUNICATIONS SPECIALIST Unavailable Unavailable Thankachan, Reeba ONLINE COMMUNICATIONS SPECIALIST Unavailable Unavailable Thankachan, Reeba ONLINE COMMUNICATIONS SPECIALIST Unavailable Unavailable Thankachan, Reeba ONLINE COMMUNICATIONS SPECIALIST Unavailable Unavailable Thankachan, Reeba ONLINE COMMUNICATIONS SPECIALIST Unavailable Unavailable Thankachan, Reeba ONLINE COMMUNICATIONS SPECIALIST Unavailable Unavailable Thankachan, Reeba ONLINE COMMUNICATIONS SPECIALIST Unavailable Unavailable Thankachan, Reeba ONLINE COMMUNICATIONS SPECIALIST Unavailable Unavailable Thankachan, Reeba ONLINE COMMUNICATIONS SPECIALIST Unavailable Unavailable Thankachan, Reeba ONLINE COMMUNICATIONS SPECIALIST Unavailable Unavailable Thankachan, Reeba ONLINE COMMUNICATIONS SPECIALIST Unavailable Unavailable Thankachan, Reeba ONLINE COMMUNICATIONS SPECIALIST Unavailable Unavailable Thankachan, Reeba ONLINE COMMUNICATIONS SPECIALIST Unavailable Unavailable Thankachan, Reeba ONLINE COMMUNICATIONS SPECIALIST Unavailable Unavailable Thankachan, Reeba ONLINE COMMUNICATIONS SPECIALIST Unavailable Unavailable Thankachan, Reeba ONLINE COMMUNICATIONS SPECIALIST Unavailable Unavailable Thankachan, Reeba ONLINE COMMUNICATIONS SPECIALIST Unavailable Unavailable Thankachan, Reeba ONLINE COMMUNICATIONS SPECIALIST Unavailable Unavailable Thankachan, Reeba ONLINE COMMUNICATIONS SPECIALIST Unavailable Unavailable Thankachan, Reeba ONLINE COMMUNICATIONS SPECIALIST Unavailable Unavailable Thankachan, Reeba ONLINE COMMUNICATIONS SPECIALIST Unavailable Unavailable Thankachan, Reeba ONLINE COMMUNICATIONS SPECIALIST Unavailable Unavailable Thankachan, Reeba ONLINE COMMUNICATIONS SPECIALIST Unavailable Unavailable Thankachan, Reeba ONLINE COMMUNICATIONS SPECIALIST Unavailable Unavailable Thankachan, Reeba ONLINE COMMUNICATIONS SPECIALIST Unavailable Unavailable Thankachan, Reeba ONLINE COMMUNICATIONS SPECIALIST Unavailable Unavailable Thankachan, Reeba ONLINE COMMUNICATIONS SPECIALIST Unavailable Unavailable Thankachan, Reeba ONLINE COMMUNICATIONS SPECIALIST Unavailable Unavailable Thankachan, Reeba ONLINE COMMUNICATIONS SPECIALIST Unavailable Unavailable Thankachan, Reeba ONLINE COMMUNICATIONS SPECIALIST Unavailable Unavailable Thankachan, Reeba ONLINE COMMUNICATIONS SPECIALIST Unavailable Unavailable Thankachan, Reeba ONLINE COMMUNICATIONS SPECIALIST Unavailable Unavailable Thankachan, Reeba ONLINE COMMUNICATIONS SPECIALIST Unavailable Unavailable Thankachan, Reeba ONLINE COMMUNICATIONS SPECIALIST Unavailable Unavailable Thankachan, Reeba ONLINE COMMUNICATIONS SPECIALIST Unavailable Unavailable Thankachan, Reeba ONLINE COMMUNICATIONS SPECIALIST Unavailable Unavailable ANTECOL, Denis FLOYD MD Unavailable [...] Unavailable Unavailable Paramjit Ndiaye MD Unavailable Unavailable Parmajit Ndiaye MD Unavailable Unavailable Paramjit Ndiaye MD [...] is protected by Article 27-F of the [facility] Public Health law. If you continue you may have access to information: Regarding HIV / AIDS; Provided by facilities licensed or operated by the [facility] Office of Mental Health; or Provided by the [facility] Office for People With Developmental Disabilities. If such information is present, then the following [facility] mandated warning applies: This information has been [...] law may result in a fine or senior care sentence or both. A general authorization for the release of medical or other information is NOT sufficient authorization for further disc losure. Encounters Encounter Providers Location Date Indications Data Source(s ) Unknown [address] [facility] [place] [address] 12/17/2020 12:00:00 AM EDT eCW1 ([facility]) Unknown [address] [facility] [place] [address] 11/28/2020 12:00:00 AM EDT eCW1 ([facility]) Unknown [address] [facility] [place] [address] 11/26/2020 12:00:00 AM EDT [facility] ([facility]) [place] [address] [facility] [place] [address] 11/14/2020 12:00:00 AM EDT eCW1 ([facility]) ([id number]) For [place] [address] [place] [address] 2020 12:00:00 AM EDT eCW1 ([facility]) ([id number]) [facility] [employer] [place] [address] [place] [address] 10/17/2020 12:00:00 AM EDT eCW1 ([facility]) [place] [address] [facility] [address] 10/02/2020 12:00:00 AM EDT eCW1 ([facility]) ([id number]) [facility] [place] [address] [place] [address] 09/24/2020 12:00:00 AM EDT eCW1 ([facility]) [place] [address] [facility] [address] 09/15/2020 12:00:00 AM EDT eCW1 ([facility]) [place] [address] [facility] [address] 09/12/2020 12:00:00 AM EDT eCW1 ([facility]) [place] [address] [facility] [address] 09/12/2020 12:00:00 AM EDT eCW1 ([facility]) [place] [address] [facility] [address] 09/10/2020 12:00:00 AM EDT eCW1 ([facility]) Unknown [address] [facility] [address] 09/08/2020 12:00:00 AM EDT eCW1 ([facility]) ([id number]) [place] [address] [place] [address] 08/20/2020 12:00:00 AM EDT eCW1 ([facility]) ([id number]) For [place] [facility] [place] [address] 08/13/2020 12:00:00 AM EDT eCW1 ([facility]) ([id number]) [place] [facility] [place] [address] 08/06/2020 12:00:00 AM EDT eCW1 ([facility]) ([id number]) [place] [facility] [place] [id number] 07/30/2020 12:00:00 AM EDT eCW1 ([facility]) ([id number]) [facility] [place] [facility] [place] [address] 07/23/2020 12:00:00 AM EDT eCW1 ([facility]) ([id number]) [facility] [place] [facility] [place] [address] 07/16/2020 12:00:00 AM EDT eCW1 ([facility]) Unknown [address] [place] [address], [facility] [address] 07/14/2020 12:00:00 AM EDT eCW1 ([facility]) ([id number]) [place] [address] [place] [address] 07/09/2020 12:00:00 AM EDT eCW1 ([facility]) Unknown [facility] [address] 07/03/2020 12:00:00 AM EDT eCW1 ([facility]) (WND [id number]) New Patient [address] [place] [address] 07/02/2020 12:00:00 AM EDT eCW1 ([facility]) Unknown [facility] [address] 06/19/2020 12:00:00 AM EDT eCW1 ([facility]) Outpatient Attender: BRENNEN LEVINE DPM PC 05/28/2020 12:52:00 PM EDT - 05/28/2020 12:52:00 PM EDT [facility] Outpatient Attender: RITA ZAMARRIPA [id number] 05/15/2020 04:42:29 PM EDT [facility] Outpatient Attender: BROOKE LR MD [id number] 05/14/2020 12:00:00 AM EDT - 05/14/2020 02:04:10 PM EDT Encounter for other preprocedural examination [facility] Encounter for other preprocedural examin ation Outpatient Attender: Brandy Ray NP [id number] 12:00:00 AM EST - 04/23/2020 [facility]20:[facility]: TASHA COLUNGA [id number] 04/23/19 12:00:00 AM EST - 04/23/2020 12:20:23 PM [facility] Inpatient Attender: Adebayo Velasco mitter: Adebayo Ndiaye MDReferrer: NILSON RG MD ES1-OR 04/11/2020 09:05:55 AM EST - 04/18/2020 07:04:00 PM EST [facility] Patient discharged. Outpatient Attender: BRENNEN ESCALERA 03/19/2020 01:00:00 PM EST - 03/19/2020 01:00:00 PM EST [facility] Outpatient Attender: RITA ZAMARRIPA [id number] 03/18/2020 12:00:00 AM [facility] Outpatient Attender: MARIEL YAN MD Main Office 03/07/2020 10:00:00 AM EST MEDCHRISSY ([facility]) Outpatient Attender: Brandy Ray NP 03/03/2020 12:00: 00 AM [facility] Outpatient Attender: Adbeayo Ndiaye MDReferrer: Adebayo wallace MD [facility] 02/26/2020 09:33:34 AM EST - 02/26/2020 10:45:12 AM EST [facility] Outpatient Referrer: Adebayo Ndiaye MD MOB-MOB.PAT 02/22 08:32:13 AM EST - 02/23/2020 08:32:17 AM [facility] Inpatient Attender: Adebayo Ndiaye MDAdmitter: Adebayo wallace MD ES1-OR.PERIOP 02/19/2020 12:36:52 PM EST [facility] Outpatient 02/13/2020 12:00:00 AM [facility] Unknown [address] [facility] [place] [address] 12/27/2019 12:00:00 AM EDT eCW1 ([facility]) Outpatient Attender: BRENNEN LEVINE DPM PC 12/26/2019 03:30:00 PM EDT - 12/26/2019 03:30:00 PM EDT [facility] Outpatient Attender: BRENNEN LEVINE DPM PC 12/12/2019 03:39:00 PM EDT - 12/12/2019 03:39:00 PM EDT [facility] Immunizations Vaccine Date Status Description Data Source(s) COVID-19 VACCINE Moderna 06/19/2020 12:00:00 AM EDT completed [facility] Vaccine Series Complete: YESThis Data wa s Submitted to [facility] Via [facility]. COVID-19 VACCINE Moderna 06/19/2020 12:00:00 AM EDT completed [place] Vaccine Series Complete: YESThis Data wa s Submitted to [facility] [employer]. COVID-19 VACCINE Moderna 05/27/2020 12:00:00 AM EDT completed [facility] Vaccine Series Complete: NOThis Data was Submitted to [facility] [employer]. Medications Medication Brand Name Start Date Product Form Dose Route Admi nistrative Instructions Pharmacy Instructions Status Indications Reaction Description Data Source(s) Fluconazole 150 MG Oral Tablet Fluconazole 150 MG 09/12/2020 12:00: 00 AM EDT 1.0 {tablet} active Fluconazole 150 MG [facility] Fluconazole 150 MG Oral Tablet Fluconazole 150 MG 09/12/2020 12:00: 00 AM EDT 1.0 {tablet} active Fluconazole 150 MG [facility]CW[facility]) Fluconazole 150 MG Oral Tablet Fluconazole 150 MG 09/12/2020 12:00: 00 AM EDT 1.0 {tablet} active Fluconazole 150 MG [facility]CW1 [facility]) Fluconazole 150 MG Oral Tablet Fluconazole 150 MG 09/12/2020 12:00: 00 AM EDT 1.0 {tablet} active Fluconazole 150 MG eCW1 [facility]) Fluconazole 150 MG Oral Tablet Fluconazole 150 MG 09/12/2020 12:00: 00 AM EDT 1.0 {tablet} active Fluconazole 150 MG [facility]CW1 [facility]) Fluconazole 150 MG Oral Tablet Fluconazole 150 MG 09/12/2020 12:00: 00 AM EDT 1.0 {tablet} active Fluconazole 150 MG [facility]CW1 [facility]) Fluconazole 150 MG Oral Tablet Fluconazole 150 MG 09/12/2020 12:00: 00 AM EDT 1.0 {tablet} active Fluconazole 150 MG [facility]CW1 [facility]) Fluconazole 150 MG Oral Tablet Fluconazole 150 MG 09/12/2020 12:00: 00 AM EDT 1.0 {tablet} active Fluconazole 150 MG [facility]CW1 [facility]) Fluconazole 150 MG Oral Tablet Fluconazole 150 MG 09/12/2020 12:00: 00 AM EDT 1.0 {tablet} active Fluconazole 150 MG eCW1 [facility]) Fluconazole 150 MG Oral Tablet Fluconazole 150 MG 09/12/2020 12:00: 00 AM EDT 1.0 {tablet} active Fluconazole 150 MG eCW1 [facility]) Fluconazole 150 MG Oral Tablet Fluconazole 150 MG 09/12/2020 12:00: 00 AM EDT 1.0 {tablet} active Fluconazole 150 MG eCW1 [facility]) Losartan Potassium 100 MG Oral Tablet Losartan Potassium 12:00:00 AM EST ORAL active [facility] Losartan Potassium 50 MG Oral Tablet Losartan Potassium 08/2020 12:00:00 AM EST ORAL completed [facility] ([facility]) Ergocalciferol 11013 UNT Oral Capsule Vitamin D (Ergocalcife rol) 03/06/2020 12:00:00 AM EST ORAL active M EDENT ([facility]) Regular Insulin, Human 100 UNT/ML Injectable Solution [Novol in R] Novolin R 03/06/2020 12:00:00 AM EST active [facility] ([facility]) Escitalopram 10 MG Oral Tablet [Lexapro] Lexapro 03/06/2020 12:00: 00 AM EST ORAL active [facility] ([facility]) ferric citrate 1000 MG Oral Tablet [Auryxia] Auryxia 08/2020 12:00:00 AM EST ORAL active [facility] ( [facility]) Parsabiv Parsabiv 03/06/2020 12:00:00 AM EST activ e [facility] ([facility]) Veltassa Veltassa 03/06/2020 12:00:00 AM EST activ e [facility] ([facility]) Acetaminophen 325 MG / Hydrocodone Michael trate 5 MG Oral Tablet HYDROcodone- acetaminophen (NORCO) 5-325 MG per tablet HYDROcodone-acetaminophen (NORCO) 5- 325 MG per tablet 12/12/2014 12:00:00 AM EDT 1 {tbl} Oral aborted Take 1 tablet by mouth every 4 (four) hours as needed for pain Max Daily Amount: 6 tablets [facility] Biotin 10 MG Oral Tablet Biotin (BIOTIN MAXIMUM STRENG TH) 10 MG TABS Biotin (BIOTIN MAXIMUM STRENGTH) 10 MG TABS 1 {each} Oral aborted Take 1 each by mouth daily. [facility] Aspirin 325 MG Oral Tablet aspirin 325 MG tablet aspirin 325 MG tab let 325 mg Oral aborted Take 325 mg by mouth jeremías ly. [facility] atorvastatin 10 MG Oral Tablet atorvastatin (LIPITOR) 10 MG tablet atorvastatin (LIPITOR) 10 MG tablet 10 mg Oral aborted Take 10 mg by mouth every evening. [facility] ferric citrate 1000 MG Oral Tablet Wilfred c Citrate 1 GM 210 MG(Fe) Oral Tablet (Auryxia) Ferric Citrate 1 GM 210 MG(Fe) Oral Tablet (Auryxia) Oral aborted Take by mouth [facility] lanthanum carbonate 500 MG Chewable Tabl et Lanthanum Carbonate 500 MG Oral Tablet Chewable (FOSRENOL) Lanthanum Carbonate 500 MG Oral Tablet C hewable (FOSRENOL) 500 mg Oral aborted Chew 500 mg by Mouth Two times daily with meals [facility] Norgestim-Eth Estrad Triphasic (TRI-SPRINTEC) 0.18/0.2 15/0.25 MG-35 MCG TABS 43460-026-99 1 {tbl} Oral aborted Take 1 ta blet by mouth nightly [facility] torsemide 20 MG Oral Tablet torsemide (DEMADEX) 20 MG tablet torsemide (DEMADEX) 20 MG tablet 20 mg Oral aborted Ta ke 20 mg by mouth 2 (two) times a day [facility] 1 ML heparin sodium, porcine 1000 UNT/ML Injection Heparin Sodium, Porcine, (HEPARIN, PORCINE,) 1000 UNIT/ML injection Heparin Sodium, Porcine, (HEPARIN, PORCINE,) 1000 UNIT/ML injection 2600 U abort ed 2,600 Units catheter lock venous blue port every treatment at dialysis [facility] 1 ML heparin sodium, porcine 1000 UNT/ML Injection Heparin Sodium, Porcine, (HEPARIN, PORCINE,) 1000 UNIT/ML injection Heparin Sodium, Porcine, (HEPARIN, PORCINE,) 1000 UNIT/ML injection 2400 U abort ed 2,400 Units catheter lock arterial red port every treatment at dialysis [facility] Amlodipine 10 MG Oral Tablet amlodipine (NORVASC) 10 M G tablet amlodipine (NORVASC) 10 MG tablet 10 mg Oral aborted Take 10 mg by mouth daily. [facility] Insurance Providers Payer name Policy type / Coverage type Policy ID Covered libertarian ID Covered libertarian's relationship to redding Policy [place] Plan Information [facility] [id number] xxxxxxxxx [id number] [facility] [id number] [facility] [id number] [facility] [id number] Spouse [id number] MEDICARE [id number] Yusra [id number] MEDICARE [id number] xxxxxxxxxxx [id number] MEDICARE A [id number] Self [id number] MEDICARE [id number] Yusra [id number] A MEDICARE A [id number] Self [id number] A OTHER B TRANSPLANT Self TRANSPLAN T INSURANCE COVID-19 COVID Yusra C OVID INSURANCE COVID-19 [id number] [id number] ANSI-Commercial [id number] ANSI-Medicare Part B [id number] ANSI-Medicare Part B [id number] ANSI-Commercial [id number] ANSI-Medicare Part B [id number] ANSI-Commercial [id number] ANSI-Medicare Part B [id number] ANSI-Commercial [id number] ANSI-Medicare Part B [id number] ANSI-Commercial [id number] EXCELLUS BCBS PI PI MEDICARE PI PI ANSI-Medicare Part B [id number] ANSI-Commercial [id number] ANSI-Medicare Part B [id number] ANSI-Commercial [id number] ANSI-Medicare Part B [id number] ANSI-Commercial [id number] ANSI-Medicare Part B [id number] ANSI-Commercial [id number] MEDICAID [id number] SP [id number] MEDICAID CO [id number] MEDICAID -PHYSICIAN [id number] 1 8 [id number] ANSI-Commercial [id number] ANSI-Medicare Part B [id number] ANSI-Medicare Part B [id number] ANSI-Commercial [id number] ANSI-Commercial [id number] ANSI-Medicare Part B [id number] MEDICAID M [id number] S [id number] MEDICARE C [id number] S [id number] [address] [facility] OPTIONS C [id number] S [id number] ANSI-Medicare Part B [id number] ANSI-Commercial [id number] ANSI-Commercial [id number] ANSI-Medicare Part B [id number] EXCELLUS BCBS FEDERAL [id number] HU2 [id number] EXCELLUS BCBS FEDERAL [id number] HU2 [id number] UNHC COMMUNITY PLAN MCDHMO UNAVAILABLE UNAVAILABLE MEDICARE [id number] SP [id number] A EXCELLUS BLUE CROSS BLUE SHIELD HEA [id number] SP [id number] MEDICARE M [id number] S [id number] A BLUE CROSS O [id number] SP [id number] MEDICARE [id number] SP [id number] T BC BS [place] WATN FEDERAL [id number] HU2 [id number] MEDICARE [id number] SP [id number] SELF PAY UNAVAILABLE UNAVAILA BLE BCBS FEDERAL EMPLOYEE PROGRAM [id number] HU2 [id number] BCBS FEDERAL EMPLOYEE PROGRAM [id number] HU2 [id number] EXCELLUS CNY FEP [id number] MEDICARE PART A [facility] [id number] 18 [id number] MEDICARE C [id number] S [id number] BC BS [place] WATN FEDERAL B [id number] S [id number] MEDICARE [id number] SP [id number] A BLUE CROSS BLUE SHIELD CO UNAVAILABLE 01 UNAVAILABLE BLUE CROSS BLUE SHIELD -O/P UNAVAILABLE 01 UNAVAILABLE BLUE CROSS BLUE SHIELD [facility] [id number] Problems, Conditions, and Diagnoses Code Display Name Description Problem Type Effective Dates Data Source(s) 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 Diagnosis 05/28/2020 12:52:00 PM EDT [facility] B351 Tinea unguium Tinea unguium Diagnosis 05/28/2020 12:52:00 PM EDT [facility] G56322 Pressure ulcer of other site, stage 2 Pr essure ulcer of other site, stage 2 Diagnosis 05/28/2020 12:52:00 PM EDT [facility] L84 Corns and callosities Corns and callosities Diagnosis 05/28/2020 12:52:00 PM EDT [facility] Z01.818 Encounter for other preprocedural examin ation Encounter for other preprocedural examination Diagnosis 05/14/2020 01:09:22 PM EDT [facility] N18.5 Chronic kidney disease, stage 5 Chronic kidney disease , stage 5 Diagnosis 04/18/2020 12:19:00 PM EST [facility] N18.6 End stage renal disease End stage renal disease Diagno sis 04/18/2020 12:19:[address] 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, type I [juvenile type], uncontrolled Problem 09/12/2020 12:00:00 AM EDT [facility] L97.522 [id number] Non-pressure chronic ulcer of other part of left foot with fat layer exposed Problem 07/02/2020 12:00:00 AM EDT eCW1 ([facility]) L97.422 [id number] Non-pressure chronic ulcer of left heel and midfoot with fat layer exposed Problem 07/02/2020 12:00:00 AM EDT eCW1 ([facility]) 0584783 Old myocardial infarction Old myocardial infarction Pr oblem 03/07/2020 12:00:00 AM EST [facility] ([facility]) [id number] Paroxysmal supraventricular tachycardia Paroxysmal supraventricular tachycardia Problem 03/07/2020 12:00:00 AM EST [facility] ([facility]) 26626062 Essential hypertension Essential hypertension Problem 03/07/2020 12:00:00 AM EST [facility] ([facility]) [id number] Preoperative cardiovascular examination Preoperative cardiovascular examination Problem 03/07/2020 12:00:00 AM EST [facility] [facility]) [id number] Hypertensive heart disease without conge stive heart failure Hypertensive heart disease without congestive heart failure Problem 03/07/2020 12:00:00 AM EST MED[facility] ([facility]) [id number] Electrocardiogram abnormal Electrocardiogram abnormal Problem 03/07/2020 12:00:00 AM EST [facility] ([facility]) [id number] 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) Surgeries/Procedures Procedure Description Date Indications Data Source(s) FINE NEEDLE ASPIRATION W/O IMAGING GUIDANCE 2020 12:00:00 AM EDT [facility] FINE NEEDLE ASPIRATION W/O IMAGING GUIDANCE 10/17/2020 12:00:00 AM EDT [facility] ([facility]) FINE NEEDLE ASPIRATION W/O IMAGING GUIDANCE 09/24/2020 12:00:00 AM EDT [facility]CW[facility] ([facility]) FINE NEEDLE ASPIRATION W/O IMAGING GUIDANCE 08/20/2020 12:00:00 AM EDT [facility] ([facility]) FINE NEEDLE ASPIRATION W/O IMAGING GUIDANCE 08/13/2020 12:00:00 AM EDT [facility]CW1 ([facility]) Medication: Silver Nitrate Stick topically 08/13/2020 12:00:00 AM EDT eCW1 ([facility]) FINE NEEDLE ASPIRATION W/O IMAGING GUIDANCE 08/06/2020 12:00:00 AM EDT eCW1 ([facility]) FINE NEEDLE ASPIRATION W/O IMAGING GUIDANCE 07/30/2020 12:00:00 AM EDT [facility]CW1 ([facility]) FINE NEEDLE ASPIRATION W/O IMAGING GUIDANCE 07/23/2020 12:00:00 AM EDT eCW1 ([facility]) FINE NEEDLE ASPIRATION W/O IMAGING GUIDANCE 07/16/2020 12:00:00 AM EDT eCW1 ([facility]) Medication: Santyl 250unit/G ointment to wound bed 07/16/2020 12:00:00 AM EDT [facility]CW1 ([facility]) FINE NEEDLE ASPIRATION W/O IMAGING GUIDANCE 07/09/2020 12:00:00 AM EDT eCW1 ([facility]) FINE NEEDLE ASPIRATION W/O IMAGING GUIDANCE 07/02/2020 12:00:00 AM EDT eCW1 ([facility]) Medication: 2% Lidocaine intradermal 07/02/2020 12:00: 00 AM EDT eCW1 ([facility]) Medication: Santyl 250unit/G ointment to wound bed 07/02/2020 12:00:00 AM EDT eCW1 ([facility]) Medication: Silver Nitrate Stick topically 07/02/2020 12:00:00 AM EDT eCW1 ([facility]) Revise Arteriovenous Fistula 04/18/2020 12:00:00 AM ES T ADI ([facility]) Pare Hyperkeratotic Lesion, 2-4 03/19/2020 12:00:00 AM EST MEDENT ([facility]) Debridement Nails Any Method 6 Or More 03/19/2020 12:0 0:00 AM EST [facility] ([facility]) ECG ROUTINE ECG W/LEAST 12 LDS W/I&R 03/07/2020 12:00: 00 AM EST [facility] ([facility]) Arterial Pressure Waveform Analysis For Assessment Of Centra l Art 03/07/2020 12:00:00 AM EST [facility] ([facility]) ECG ROUTINE ECG W/LEAST 12 LDS TRCG ONLY W/O I&R <td>E CG 12- LEAD</td><td>Routine</td><td>02/26/2020 10:38 AM EST</td><td> End stage renal disease</td><td></td> 02/26/2020 03:38:13 PM EST End stage renal disease [facility] End stage renal disease HEMOGLOBIN GLYCOSYLATED A1C <td>HEMOGLOBIN A1C</td><td>Routine</td><td>02/26/2020 10:30 AM EST</td><td> End stage renal disease</td><td> </td> 02/26/2020 03:30:00 PM EST End stage renal disease [facility] End stage renal disease BLOOD COUNT COMPLETE AUTOMATED <td>CBC</td><td>Routine </td><td>02/26/2020 10:00 AM EST</td><td> End stage renal disease</td><td> </td> 02/26/2020 03:00:00 PM EST End stage renal disease [facility] End stage renal disease BASIC METABOLIC PANEL CALCIUM TOTAL <td>BASIC METABOLI C PANEL</td><td>Routine</td><td>02/26/2020 10:00 AM EST</td><td> End stage renal disease</td><td> </td> 02/26/2020 03:00:00 PM EST End stage renal disease [facility] End stage renal disease Pare Hyperkeratotic Lesion, 2-4 12/12/2019 12:00:00 AM EDT MEDENT ([facility]) Debridement Nails Any Method 6 Or More 12/12/2019 12:0 0:00 AM EDT [facility] ([facility]) Results ID Date Data Source [id number] 08/26/2020 08:15:00 PM EDT [facility] Name Value Range Interpretation Code Description Data Mira rce(s) Supporting Document(s) SARS coronavirus 2 RNA [Presence] in Res piratory specimen by KENYATTA with probe detection NEGATIVE [facility] This lab was ordered by [facility] a nd reported by [facility]. ID Date Data Source [id number] 06/10/2020 12:39:00 AM EDT [facility] Name Value Range Interpretation Code Description Data Mira rce(s) Supporting Document(s) SARS-CoV-2 (COVID 19) NEGATIVE - SARS-CoV-2 (COVID19) [facility] This lab was ordered by [facility] a nd reported by [facility]. ID Date Data Source [id number] 05/15/2020 04:42:29 PM EDT [facility] Name Value Range Interpretation Code Description Data Mira rce(s) Supporting Document(s) Progress Note [facility] RQINCr9xOkYBYiWm56/FDXgmNQShy5JtBTumVGr2DEfcPEGaZ7SqFPM8dL0qUMY7GGrMOdXaSmKiLfK7 lbm [file] ICAgICAgICAgICAgICAgICAgICAgICAgICAgICAgIC AgICAgICAgICAgICAgICAgICAgICAgICAgICAgICAgICAgICAgICAgICAgICAgICAgICAgICAgICAgIC UjKFTlDYZeYO0IWQDiHIGjDPYgEIYuCMUsGRMbWYNuEQRfWCXgGVAmUPMzOKYfRFMlNYXxJBFbYXDlPI AgICAgICAgICAgICAgICAgICAgICAgICAgICAgICAg ZIReROLlSSFoQEKtLQWzEEUqNB9QFKXhBGTfPNZjJNKlJHNpUZYvFDGkTVJjTDOoYJQwTISlZETaZJUs ICAgICAgICAgICAgICAgICAgICAgICAgICAgICAgICAgICAgICAgICAgICAgICAgICAgICAgICAgICAg IQ9KMJQeHXKaNCTySAWwQFZnMFDwVJPnKVXpVFDyHI AgICAgICAgICAgICAgICAgICAgICAgICAgICAgICAgICAgICAgICAgICAgICAgICAgICAgICAgICAgIC VlRXQtHEKeTXNiZI1NSCYkYICfFQPhPVQtFRFzAEXgOKCaNBFuXMNzHJWhNVXmJMIoLWIlDFClFAYiAE AgICAgICAgICAgICAgICAgICAgICAgICAgICAgICAg VAYmBYEaSMYqUPFaSHVsZROtSODjME6SAZKyJIKbRKPkYMTzRZZuAEFgTTHgOTRgVYXhXGLyWZBgLVPk ICAgICAgICAgICAgICAgICAgICAgICAgICAgICAgICAgICAgICAgICAgICAgICAgICAgICAgICAgICAg HALdZM6XOSHvJETdCWSeALCzQJTzMHCsRCTmLVEdQN AgICAgICAgICAgICAgICAgICAgICAgICAgICAgICAgICAgICAgICAgICAgICAgICAgICAgICAgICAgIC XjTHRgSHNjKFTwXDFfXW3REOQwPFApXZTgYTKpNYOzRTZkTRQlFZQyWXYhWGQaCAXuLYUsKENiJYPmXV AgICAgICAgICAgICAgICAgICAgICAgICAgICAgICAg JVKlRNBuQNHkCEUxPRGmBKWlVQKyTGDuDR9VKIWjNYVyWKVxDUUdXYLrCUVbPSHcSOJmZYOuFIDgGAXq ICAgICAgICAgICAgICAgICAgICAgICAgICAgICAgICAgICAgICAgICAgICAgICAgICAgICAgICAgICAg MMJpUZMzLT2KYKUnTUPtJXPzJYAvICCkOMSsGTBbML AgICAgICAgICAgICAgICAgICAgICAgICAgICAgICAgICAgICAgICAgICAgICAgICAgICAgICAgICAgIC RwLSUfMZHjJAVmLFVjKJOyGD3QSZ86fTHpe5A4ZCUcZO6jxoe/Uy5LNHworgSakDOuLL1BJlTsRK3ocd 6XEtGpRF9bjx8CJFuCMrJlR6V6cXIgIJTrESTMEjJo U97kKVeyZk20EQckLGWuPlGvUXf1Dv1OSvSrV0qdBDXqEqG7LRYjIuCxVVffWV1Aw3FenQRfQIz+Pg0K XX8me5BhYXxhRZYiHN6lks3ZTViZDcPrF8AghqM8GCMlETSwNa7BNDFgEQQmiTFaGAOhVRMXNxUdL3Yd dP51KBELQc4+AEvydqLbYxoGEhGwSRBba1KuVIw0LL 4QCTVoQTv2jSUcCXKcY4Cmg6IrJa81ICOuZoxvJ0Myo7PpMUOVMTxcpoXjVVkzLk4dSTEdOj8oHB6dEH IzCYX2DsJ9ZHQLTL3GOHOdOBMplFSnJHWlIEYJEI3CYCauXXX4IPLdgrOpbANcVNslVE5IUOJzlcPqGC kgMCBSDQo+Wo7PVO6ud6TuAPwiAZJtSD3twg5NEMkZ LcJuP6R0wQOnN9W7OKbgJx4QMCKdHISjLZgvIBXGRBudJB5WOR8bvtM2XP1XqOMfYYSgNCHssVVdVZl5 V15agKLvLQazCI6YDKG+Deyanira+Jr7OITYpTBVyGFStViQoVKVFUbZcX0LrS1IXu3AkV2OxKL31iKxahmTf NFwyBK5MQM5sGKCiCCKJNM6TlTStgE6thsYnXHRkLM EYCkQjP17icKRrCYWbOTB3LVVhLj1YXWLeC2CfuuFuoXdgrxZvJCBzUTUCKG7BYSousjLaePNqaLfbIX 30tPvxOD3AKo6BJvJsUG8ckf8AfMUxOs0NVUGyNk5JDNGfUBYnTXSxRVD4FZFjXdMkJPwhXYEiIYJpER S3DWLxMSXbDO8KLzBiVJKzFOr6GIDcRUKpDTIzxx9I OEHwLJAvCCO5UuBiJABuZJFwMHgdQIBnAGXoBGQ0RUOjDIRwSQ2TOsDyPFUgTKY6CbBdGSQbNWDcaj5U DAHqPNLyJuA2UBDdTXAnHCAzEYqeITVcBKUyWnSsQNPrKYHmOK9YSvEpIMYzRAS0UwfsMFTrMINcqg7D IUUoKDMpWATbDJOrMFYkPRQyOYebBVHyXZF4UUC2ZI LkSTXxFY6GLfYuLEYcFJVeByxdAHIkINYlma1AMJSeJAJlTKT5YkQwDCSfINUoFTalIGVbKIK1RgIxZF KrIFFtGM2GEsMcTUVzFKekSsewJKBhOYRaix0FABThOIJbOxIiPsXdLTDfYALcKAgjHCCyOPW8JWh1EG EkKMCeWE7TDnZzDJFdYMr3BiNuPSBjZTSzzs3DNCHb BIZgBPUoIlKoFBRqNTXnNIfyONDyZXB7BIYhFWLfXBAvBT4CBqGjRRBzAHk9VzOzZQUmVMQfep8FEGMi SCJnOMK8RqMkZOCyUZAtHZi0agBuzIZjXPd4BO6AE9WssqHsQgKUUj0Lk232WOXuOTInTm7YM2ceHh3e TXTjPAXCMn4THZa7KdSpAkZaJoumOaQnRfMxNJn1CJ osWOIfKIzyBkC5UuC+QGd5NDPhYFZfLCQrFzUmLKZ4DhdhPJNyRFEfG8F4TnpjTj9jOXDCFz0+DQpzdG VveOldPMMRNuF6GJH0GIwfPUZFTw2Q ID Date Data Source [id number] 05/14/2020 04:47:29 PM EDT [facility] Name Value Range Interpretation Code Description Data Mira rce(s) Supporting Document(s) Progress Note [facility] ILNBCh5yVrVOAyKg90/BOArbSKUta4ZtHSmfTLw6ULerGCAbI6SiXAJ7oP4yXBP6PEmSXfJeXhVtZuL3 lbm [file] yaGVC18J+/hdmx+ONLINE COMMUNICATIONS SPECIALIST/0FAQ0BgW6ZFG5ac5AgCNZvJEymlkYyOwdEHjwuAWEjJyfQRqMxOBaKEuUqWJAu [file] ICAgICAgICAgICAgICAgICAgICAgICAgICAgICAgIC AgICAgICAgICAgICAgICAgICAgICAgICAgICAgICAgICAgDQogICAgICAgICAgICAgICAgICAgICAgIC AgICAgICAgICAgICAgICAgICAgICAgICAgICAgICAgICAgICAgICAgICAgICAgICAgICAgICAgICAgIC AgICAgICAgICAgICAgICAgDQogICAgICAgICAgICAg ICAgICAgICAgICAgICAgICAgICAgICAgICAgICAgICAgICAgICAgICAgICAgICAgICAgICAgICAgICAg ICAgICAgICAgICAgICAgICAgICAgICAgICAgDQogICAgICAgICAgICAgICAgICAgICAgICAgICAgICAg ICAgICAgICAgICAgICAgICAgICAgICAgICAgICAgIC AgICAgICAgICAgICAgICAgICAgICAgICAgICAgICAgICAgICAgDQogICAgICAgICAgICAgICAgICAgIC AgICAgICAgICAgICAgICAgICAgICAgICAgICAgICAgICAgICAgICAgICAgICAgICAgICAgICAgICAgIC AgICAgICAgICAgICAgICAgICAgDQogICAgICAgICAg ICAgICAgICAgICAgICAgICAgICAgICAgICAgICAgICAgICAgICAgICAgICAgICAgICAgICAgICAgICAg ICAgICAgICAgICAgICAgICAgICAgICAgICAgICAgDQogICAgICAgICAgICAgICAgICAgICAgICAgICAg ICAgICAgICAgICAgICAgICAgICAgICAgICAgICAgIC AgICAgICAgICAgICAgICAgICAgICAgICAgICAgICAgICAgICAgICAgDQogICAgICAgICAgICAgICAgIC AgICAgICAgICAgICAgICAgICAgICAgICAgICAgICAgICAgICAgICAgICAgICAgICAgICAgICAgICAgIC AgICAgICAgICAgICAgICAgICAgICAgDQogICAgICAg ICAgICAgICAgICAgICAgICAgICAgICAgICAgICAgICAgICAgICAgICAgICAgICAgICAgICAgICAgICAg ICAgICAgICAgICAgICAgICAgICAgICAgICAgICAgICAgDQogICAgICAgICAgICAgICAgICAgICAgICAg ICAgICAgICAgICAgICAgICAgICAgICAgICAgICAgIC RgMPMnTJNfENXuJRGkAQLiKUZwLQCjZRQhBTSdCOLwFFRrVZPgGPQxNTArGTv9U3lyYNJyBFGsZX9eJS d3Jz8+LXiWJoKuYKK4yzRxvZ1LCV7my1HcREprJWPsz9BbWQh2NS8BCIIeAPaiMJ2GZDqwza0YALOpZU GwgANMg4flFlXxOCM7QCTzMaumUV1SNQMeY3ltgmJw ZXXlHOJJSIrtCVEYRUytYCVKKZPyMYJmJtBnXVxtNI9Kq3MelCC6KYj+Ox3ODX6sz0LfATzgHIBwOF3a mq3KVUmZEeRsM2CotoR5NOJqJZUgTv7ZAQZvNEMkhOXpVrZgHTTBIyEuO4HqsS86CHKYFk1+DQplbmRv LbnTExOtHBEtl8SvBFw2TI3HPQHuWIh6eBZdWQGhI0 Yju2OaYx39WGNhYabgMGN5mFnnksGQBFjbithcsoqfOFBqZBGnTv1iAa8dUJIyBHWgYuSvHELAMO5IKV MsBYCgnKQfLQPzKFVDTQ5SKInpHWD8URDajsKvyZSuOAlzHI9FYFZoutCgDcKuTTSLGQe+Vo6KEO5oj9 ZjPAhbWpKxUJ7dzg6BKPxHBkNwI8X9pGJcW4Y3PAav Pu1YBTDnLHUhCuqmDHNYCBwcUA5KOJ9mctT7EW9TuTQyQJTpAAYjsTCgXTh9F15hkFCzKAowSF3TSNJ+ Deyanira+Nn1XWFSkSCZwNUWwAoMoMSPTVvYaM8VsW8RGe9LdT4TeGI55eEhhjwPdHPexRY8HOJ1bTHMbZWNY KD2QrIOnhJ0qyvWdJAOqFFWOJwAxD75ojFNhESNjDL GtTAKrMz6QARYeF8GskfWvmKufbuEdVQGiMLRGVS7IZZhvdaBnpTIzoLbhRO88tKbgCU5GLc4VMeAuWB 5rzn9EuZIhQb8PFQJlIR1JIBEaVJOcPUTcHBT1FOKaElYcOQihPYDxOSBtEGM5DIXxTGJjWG1YRfNgNJ GgFNCyLdSuWILsBFTgqo8TPIJjBMN6VRG6XeVlRXAx GVOnRLulNTBmEPCrJAQ0NAIzIOHqMP4OBcPpLZByMZSyEKjhMPFpADLoeu4VCLBqPYOjMaP8QCLcZZVo HSCpTPddDFNtFZX8MyJ9JYJmKBFyLI7AKrLbFHCvZIr7DMijXNKbCNDiuw9KBSQnLCLaGTPmTySpJBAp VTIlCPttRUQzRPFwVUXaNHFqRUAeMX4VHwCcIZBrJE DdDCVnKTNwINDzvm5QYPNdFCUnNLK1KJIcNWKmFKOpDQdcWHXrQCS1TNO3TMKkTMYoCG8FXyCxHNJlVJ E4GZSyTNSlUIBbte6BDOOhOTKeKKh3NJNyLNUqWUPyFQzoPAFmUCH2ORR9DSFaVCMuZE4GZqAiKNOzIO dsHFHmJDOaHKEaxf7AMFQpKCJgVsVkJRIvJLUlPNUk IBelTIGpNWL9VXidLIEwGXXzTV6RWuFoIINiHEu9TACxTQGmVCOdjk0IAGLuVNS6OBcvLTNwNAGgJWKh XPbsHFEdRNCeRKA4CTDxYJFlCJ7UUyZgGCAgIKA6LXRpYFYeZRVdep7JDCKvLTW7FCL2NlVvCHVrRXYp KLwcFWBeDTTsKIL0UBEwPORaAH0TNmXoSSAwOTF0LD ivOBTqIOTnnb8FJEAyCAT5Yac2PiIgADAvRDVcQYkuOYJsHYMmDQOzEKHbSKEpYE4GHbFaPNSaMIAhNO kwRYRuOUCkax2TKGKfACV2Ofu8QiLgKXCxRZTrUCqvNLFgONI9ZYc2ZASlBGFjEZ4WRvYiSKNzODVyZg PmHDWzPYUkpb8QHXLvERA3NWBbAIAdUYBmSEHeCKq8 wrAlqPYyLAe3ZZ0IY2RcbdJfLrHQPv9Zt894CCZzDSBkHi0MR6cbOv1mYFDoKXOBEm2WXJb8IJEwKpL7 YkW2EIOtOpxhOqAuU9BpBEsjJpZxGhj0PwJ+RGfaDyKdLbgrZnxzFDXeQaXhAiJ7CnX2KCGzNzL3IJRv Fe1ySRQGQz3+IEjldLIaoYfsWUTSGzH6QdC3OIniBEWTFn0G ID Date Data Source [id number] 04/25/2020 10:19:40 AM EST [facility] Name Value Range Interpretation Code Description Data Mira rce(s) Supporting Document(s) Progress Note [facility] VSEMLg5mNbUQCtQh59/POQdcKLBgp1EfVIjeYWr5TKmtOETaI4RxPSZ1kD2zVCC7WVbHHoEiLiXlLgJ0 lbm [file] oBnGmYlWxP82MGZMde7nxZqaL/López/dIYdXt+KT1mpZIUlca7iOf9NbrpBALv79Tw1ZkkW2uwZx9aXVJI [file] AgICAgICAgICAgICAgICAgICAgICAgICAgICAgICAgICAgICAgICAgICAgICAgICAgICAgICAgICAgIC CpAWChFLPpFKNzZCYvUOFrGMUoYHMsNDAiBVXpNNEcVQ1YOIBeRAGnTVEaJOBiJBRgMETfNZFiFQBtDP AgICAgICAgICAgICAgICAgICAgICAgICAgICAgICAg SLJkNQXfDUIuJIPlKONdZCEbYIUdLXHbUDQcFPMgXAEySTZbYCUgBPFxXG0FJFTwQCQvICRnHZMoJLBe ICAgICAgICAgICAgICAgICAgICAgICAgICAgICAgICAgICAgICAgICAgICAgICAgICAgICAgICAgICAg ZOVnEEAtYILbKFJxFABmCQOrARAbWXUwXC8QQDAlWX AgICAgICAgICAgICAgICAgICAgICAgICAgICAgICAgICAgICAgICAgICAgICAgICAgICAgICAgICAgIC PcQKQwKHJoFFRdKWYcDSOrWVTgFOLqCALzBGXvZFRiHXXeIV7EKGMuEDMaWYViFSIcDHLwRFXdWMOwFA AgICAgICAgICAgICAgICAgICAgICAgICAgICAgICAg SLNuVNShOPYvRAEoDLKgOTQnQMZaZVHqPXTiQPTyUOUxGHWcIQAfKIJoTZOnHZ7XGZHsEKIrWTTkLDLt ICAgICAgICAgICAgICAgICAgICAgICAgICAgICAgICAgICAgICAgICAgICAgICAgICAgICAgICAgICAg LKUzNCGiDDBnOCHwMJEpSDCgBRNgAAEyCYLyZF2ZOS AgICAgICAgICAgICAgICAgICAgICAgICAgICAgICAgICAgICAgICAgICAgICAgICAgICAgICAgICAgIC HjGDGmNXPlTDQxEEUcJVMvGZXmPCLlELDbYGPuPHNpKUSfHVYzPM1XSKEmRRIgCEZsMWUgHKYdAILuOX AgICAgICAgICAgICAgICAgICAgICAgICAgICAgICAg QOCqKYKrILTdWLMfEHAyAUJfIRNfVAElBMPsGDKnRXNlNBKrYAFyVFOiHIQfPCEfMB9IZFXqFPEkOYQu ICAgICAgICAgICAgICAgICAgICAgICAgICAgICAgICAgICAgICAgICAgICAgICAgICAgICAgICAgICAg ICAgICAgICAgICAgICAgICAgICAgICAgICAgICAgIA 0KICAgICAgICAgICAgICAgICAgICAgICAgICAgICAgICAgICAgICAgICAgICAgICAgICAgICAgICAgIC JiVLVzIYEpLOEqJGClWRDlEHAdGJLmMJBzGEYsIDPcOFIaWGUsAYAnHC1YKJ56bQNbr6L3BHXvKE1yzg c/Ql5OFTbkibXsaAQsYK2SLjSiMR0att3EJzPzFG5k uw3JNFnCIiKyS8P7vVZiYCKcZZQNPfDaN39fDIhbWt07DXxhENFcBwViYFc8Rm8EHvLzV6lzWSSnSoH9 VBMgVaQ7QHVgUnN9KVJdWnMvXIMbXCPnKJMgHSYAYAJ3WVDjYmObNcFvUDDtLHrrOXFVWQ8UIlIgH8Oc uK55MCqQZv5+VEokldItQikFZiG8KYQfa3EqFEr3DQ 0JAYZbMvzix6MvXzgpDZVXAVqqVY1GUVL7JOG5VXBdFo2RSLLyQ151lxJeMQ4FUw2YBtZvVI5odv1MUx gpMBZnCrkENdu7LIjaKP8JbYRkUKaYex2mnnXagiXNi9WplhUyaTDQLUSfYBLPwZYkl6CpwZTwSAGKCY YbkLWaVxJ9FxAwNrUxDSI8HoIkHH9aVRkhUU2GETN4 QDqjHEZaXHAjQ3jOJjKaNUAgJQErqPakHH1XPmVgZ4HutuRknGOfCrPtKOTYWo9+DQplbmRvYmoNCjM4 YVCge6QmNVk2BU0KLTUrKXywUK7TGPGxwK6uNSbhYV4IMuWdFLBlCNQJMdQgP91wuWRiDPs5X3XsKfHu ZGVkRmlsZXMgPDwvTmFtZXMgWyBdDQogID4+ID4+DQ plAR9LWXszgoTsTKRpWo3MDGKdTNLjOE3cDFZyPOVvS5R0rVvzTCKGNvGkB0pnsyapQI1xBJAuB614bU igbuVeHWM4WAMkVs3NVGJhJUO4ZFPwuIMgLnDiGEOMQQlmOJ0NaHMsZFN0gH7kQQgnXDAtDMEiV9cCEt FzuQtsUD23qAgybfVudXJyAIt+Fa3VSA6vi5ZeAQh2 izPtBUumFUL4YEvzNHWqQPNrUFDvOZE0EEW7UWMZHhBxVKEbICMtBUueUYXjWDAkrg5VOFMwYSJ1TQUn WnQjUDIdHEBoCTcmYXIqFKU1ZZT0VXGoNQBtAD3VNyNbYILrCJEjKMlrZEKpQWShae5PWHYzOFLiDGL6 QSFfRGFbEXOiRGqeCHWlYXZ3GnApUYOdFEWsOB2LTu JnTZNbGUp5FUYkMEAmEFRbsp3BSXBwJDMvKAY8IHAyDPCzHXRyBFjhWGQjKQDxZkLrLXOfULYzAE9NXm UkTXRbKFS9VxWlJIEmGCWifz4ABZNqYTOoJTo1WDLqPDHsAONoEGkdAGKeACN6FImlYHEfAZEcEH0GQv NfFWAnQTfoRHohVUIpQWPcwi7VIPPkAEUpSUNkIoNx GABqUWLsPQugEVYfSQPvXfZ3UXDhFKMeDO6NAaMfTMTnKvZ8MQMaIPSnNMJkms7FFYPoXDXkMZn2SXXd TFMxQQJgHXhjGBUvUPB1JGg3VAKlKWKbJQ0SXoXdISMmEoS6ZzWgOGMkAGBect0UHIPlDZQvQfcwGyEc IGTcUZNhRKrxMRYoFMZ0Goo7NLNyPIKzZS4SCcKyWY LkMia3QJDoLOFfQZKzen0BTJGoRAFoVAB9PfYhMCXeYOQwXAveKGTxTUJ0SOL9GXAxBYIaUM6LFeTgYW ByTnfsXtxcMFBlTWErew5CBPRuQUZfGUUwUdNyJZTjFIQhQOljQPQtLHGmGDK7TPKcLWGqKW7FCtFpTE IoJhH3EZXaOLQdBOSmnt4HZHFiSYZ3PqIeGeXsXAGg RLJbCYgtYKGaXGQoFGV0OABfWIMoGT7YYfLkJSKzIyT6GNKzUSOjYVXxvu9BDTOgOKB6SmcqHMEqFCVy QDIiYFzpRONpWFG2IGGqVHKaQXYjKC4THiNoVBOzMtUxKSTbXHKyXHFome9XUJQjIWJ9YTkmGBVxNECl UYRnNYzkJJGkOJQ2WBjzBSSqSVKtAP6LMjIeSLDkPa OdQdQoRWDeDALhxy4HOIRcXWA2YmEcYEByJANuDDXfWKd9mtXxvBMvFYx4CZ1XO4QqwySaZzwKAb2Dj2 63SPJ6NEErJg0XH9sxJa7jZYQdPKPHOp8AFKl0JEI8K2JrIHW3GQV1LfA6R5VqZvY6ZEJwAKP7SFWyPo E+DUb1AqxaOfC1ISF9JoomDWxaRkGhHnpdKHK7VFE4 UvXbKF6aSWNXHr0+GIymnASyuLzjYLWKRwH7TuS9RQaiPRUIWp3N ID Date Data Source [id number] 04/23/2020 04:15:59 PM [facility] Name Value Range Interpretation Code Description Data Mira rce(s) Supporting Document(s) Progress Note [facility] WNTGIt5qReDRAzLt84/KPMywGUTwh8ArKJohCCl3CYwjLEBeK5YrCXY8oB2cGZV9EEsZZrSaWzJjDnX9 lbm [file] dp3CGHk0vlI/CvWdt/g/Tank/0FfwNttpEwa/BdVapDLvBthqPEK5qOOqP/6STvkpOcxGmcg/UqQ5ekEM J1g0pSKgiy10s1C5lPdA+4E9xp+KR5lY/yRXyCT/Lj+yr9Lv6r/administrative executive+h0SY7IwywavYS4uxdJ5bv0Ja1C [file] ID Date Data Source [id number] 04/23/2020 07:53:31 AM EST [facility] NT INFORMATIONPatient MRN Name Date of Age Gend*PT [id number] Italia Tran 1975 44 years F SDCXPT Location Ad[facility] Date/[facility] --- --- EPI ID CSN Admitting Provider [id number] Adebayo Ndiaye MD([id number]) [place] [address] OPERATIVE REPORT OPNAME: ITALIA TRAN Waylon Riddle#: [id number] #: [id number] ADMISSION DATE: 04/18/2020OB: 1975 SEX: F PT TYPE: S SURACCT #: [id number] CARE PHYSICIAN: JACINDA MEI OF OPERATION: 1PREOPERATIVE [...] was present throughoutthe case.LOVE BANKS/ARELY Job #: [id number] DOC #: [id number]: Consultants . Primary Care Physician . Name Value Range Interpretation Code Description Data Mira rce(s) Supporting Document(s) ID Date Data Source [id number] 04/18/2020 10:00:00 PM EST [facility] Name Value Range Interpretation Code Description Data Mira rce(s) Supporting Document(s) Laboratory test finding (navigational concept) 250 mg/dL 70-99 [facility] PERFORMED BY [facility] CLINICAL STAFF ID Date Data Source [id number] 04/18/2020 07:34:00 PM EST [facility] ([facility] [...] formula (MDRD) 14 [facility] ([facility]) Glomerular filtration rate/1.73 sq M pre dicted among blacks [Volume Rate/Area] in Serum or Plasma by Creatinine-based formula (MDRD) 17 [facility] ([facility]) Glomerular filtration rate/1.73 sq M pre dicted among non-blacks [Volume Rate/Area] in Serum or Plasma by Creatinine-based formula (MDRD) Laboratory test result [facility] ([facility]) -- NORMAL KIDNEY FUNCTION OR MILD DISEASE - GFR >OR= 60 CHRONIC KIDNEY DISEASE - GFR 15 - 59 RENAL FAILURE - GFR <15 Est. GFR calculation based on the MDRD study equation, which assumes a steady state for creatinine. Est. GFR should not be used for medication dosing. ID Date Data Source [id number] 04/18/2020 06:31:00 PM EST [facility] ([facility]) Name Value Range Interpretation Code Description Data Mira rce(s) Supporting Document(s) Poc Beta HCG Laboratory test result [facility] ([facility]) INTERPRETATION: <5.0 NEGATIVE 5.0-25.0 I NDETERMINATE >25.0 POSITIVE LEVELS BETWEEN 5 AND 25 IU/L MAY INDICATE EARLY AND SHOULD BE REPEATED ON A BLOOD SAMPLE AFTER 48 HOURS. PERFORMED BY [facility] CLINICAL STAFF ID Date Data Source [id number] 04/18/2020 06:31:00 PM EST [facility] ([facility]) Name Value Range Interpretation Code Description Data Mira rce(s) Supporting Document(s) Poc Hematocrit 37 % 36.0-47.0 [facility] ([facility]) PERFORMED BY [facility] CLINICAL STAFF ID Date Data Source [id number] 04/18/2020 06:31:00 PM EST [facility] ([facility]) Name Value Range Interpretation Code Description Data Mira rce(s) Supporting Document(s) Poc Glucose (iStat) 350 70-99 [facility] PERFORMED BY [facility] CLINICAL STAFF ID Date Data Source [id number] 04/18/2020 06:31:00 PM EST [facility]) Name Value Range Interpretation Code Description Data Mria rce(s) Supporting Document(s) Potassium [Moles/volume] in Serum or Plasma 4.0 3.6-5.2 [facility] ([facility]) PERFORMED BY [facility] CLINICAL STAFF ID Date Data Source [id number] 04/18/2020 05:01:32 PM EST [facility] Name Value Range Interpretation Code Description Data Mira rce(s) Supporting Document(s) POC NOVA GLU 250 mg/dL (70-99) [facility]FORMED BY [facility] CLINICAL STAFF ID Date Data Source [id number] 04/18/2020 01:36:01 PM EST [facility] Name Value Range Interpretation Code Description Data Mira rce(s) Supporting Document(s) POC NOVA GLU 334 mg/dL (70-99) [facility]FORMED BY [facility] CLINICAL STAFF ID Date Data Source [id number] 04/18/2020 02:34:45 PM EST [facility] Name Value Range Interpretation Code Description Data Mira rce(s) Supporting Document(s) SODIUM 136 mmol/L (136-145) [facility] POTASSIUM 4.0 mmol/L (3.6-5.2) [facility] CHLORIDE 92 mmol/L (100-108) L [facility] CO2 36 mmol/L (22-31) [facility] ANION GAP 8 mmol/L (7-16) [facility] UREA NITROGEN 32 mg/dL (7-24) [facility] CREATININE 3.61 mg/dL (0.60-1.00) [facility] BUN/CREAT RATIO 8.9 RATIO (10.0-20.0) L [facility] GLUCOSE 339 mg/dL (70-99) [facility] CALCIUM 8.1 mg/dL (8.4-10.2) L [facility] GFR 14 ml/min/1.73m2 (>59) L [facility] GFR ( AMER) 17 ml/min/1.73m2 (>59) L [facility] GFR INTERPRETATION [facility] --NORMAL KIDNEY FUNCTION OR MILD DISEASE - GFR >OR= 60CHRONIC KIDNEY DISEASE - GFR 15 - 59RENAL FAILURE - GFR <15 Est. GFR calculation based on the MDRDstudy equation, which assumes a steadystate for creatinine. Est. GFR should notbe used for medication dosing. ID Date Data Source [id number] 04/18/2020 01:31:58 PM EST [facility] Name Value Range Interpretation Code Description Data Mira rce(s) Supporting Document(s) POC [facility] <5.0 IU/L [facility] [place] INTERPRETATION:<5.0 NEGATIVE5.0- 25.0 INDETERMINATE>25.0 POSITIVELEVELS BETWEEN 5 AND 25 IU/L MAY INDICATEEARLY AND SHOULD BE REPEATED DAVID BLOOD SAMPLE AFTER 48 HOURS.PERFORMED BY [facility] CLINICAL STAFF ID Date Data Source [id number] 04/18/2020 01:32:08 PM EST [facility] Name Value Range Interpretation Code Description Data Mira rce(s) Supporting Document(s) POC GLU 350 MG/DL (70-99) [facility] PERFORMED BY [facility] CLINICAL STAFF ID Date Data Source [id number] 04/18/2020 01:32:08 PM EST [facility] Name Value Range Interpretation Code Description Data Mira rce(s) Supporting Document(s) POC POTASSIUM 4.0 MMOL/L (3.6-5.2) [facility] PERFORMED BY [facility] CLINICAL STAFF ID Date Data Source [id number] 04/18/2020 01:32:08 PM EST [facility] Name Value Range Interpretation Code Description Data Mira rce(s) Supporting Document(s) POC HCT 37 % (36.0-47.0) [facility] CLINICAL STAFF ID Date Data Source [id number] 04/13/2020 02:00:00 PM EST [facility] Name Value Range Interpretation Code Description Data Mira rce(s) Supporting Document(s) SARS coronavirus 2 RNA Not Detected [facility] This lab was ordered by [facility] and reported by [facility]. ID Date Data Source [id number] 03/18/2020 09:35:44 AM [facility] Name Value Range Interpretation Code Description Data Mira rce(s) Supporting Document(s) Progress Note [facility] HHSVPb7fMoZDAcZt68/AYAubLMGax8EbETbuVDv0DPmqPSIcI7XuABG9dX5sEEL6UTrKSzGaBqAjCYD7 lbm [file] [id number]OtNoVP7YZl1JMyZ9PEW7kZRlVo8TAtP1MEpVJeMfXB9QEXo= ID Date Data Source [id number] 02/26/2020 11:23:01 AM EST [facility] Name Value Range Interpretation Code Description Data Mira rce(s) Supporting Document(s) EKG [facility] OKJICc0aIySVYfWii5DbCnDoVHNuRA3zhzk5W7S3tCKcZ9FdzKQbd7spZ0LoY9NaLGFcEDLKCG9SbNJv jb2 [file] [id number]///Wf/uBn8sk47571j//553/63/ /administrative executive//4f/78Rj+0VE7x2xto/sDdi/1UBxeFZWZkUOgUZ9BCFVFNLvrXSpfhQaoweDihzMMQdtIXUdLxxV NXjhGRVaUptVJJqyAUQgZrgBVRol2HUwMoaJPAevmkjvylyng/yU9OOGU1sYga5FIu/PlkXDv5rh2kQK nlSNBzj/m5D7r4hnRje9FQxq9IJ/RnzIxy7258K3mY MR2d5EaWMRbIONAlNiEuhV9x2LjK3FGeLpz35RlDzOVLCkSIty8lkUXZSkIr/F1YBK8V8BXHXCbk7ts+ KAkBwByNMRHGHRx2KpVVSWYMRHbaqnJWat/+ujUkmIFUx6KTyt6GYekmeiqUoeAbx+5evI/LU5pY53Ss K/1I8OMC/Jy10d4hmVm1k/H+9eO3eGmlK8OfJ2Id+N RoutzlpfTzpVdHYf8jfJ/irm49g14dCCAuWcoU5o8qevFLgsZePyk22sENKd0wJh+M3L+nBGUTI6/kKE LolT5QPxehSEqcak49HZBSugmEbPccp9p5qFBOKQgHhCpYn8503cUmWNZkEY/SK0JYTegaDhTY2YxE5t oOSnpvhP6+WX6P/yYEfzYJi4+FEcWGTFj3CHPIWkah sA8G+9JJENQZvq21FyUb0oDjGQEqGSNXVeJa2+Ykc1CnnHz8koiByMRX+TLRJnrZxGMtcy++3JuVPhU0 TmvmFTPlaY7iVLVD9LigOaPCn9/qlQ8TD936mvoUYMaFGnP98o//nSuR8Ek/yJUWAQLOOjko6hLWTX90 7tMlTNJDFMERescyzUdub7ERb8iQ40RHNXwObMu7Vp k902h72aPn4NyXbR9T4eFfutkpzUMJD1oe8cJO2p4waCr/bC2XGHiOVZ9fIHCwozU1qSMRVgH8yxLuGp zSAeaCjIY5TTlxKVENoLZ3LYxTvZLwvF7HszFMmECHVszM0ixFwfULKOLnO2Z2XBbwlPGJplOtPyUJ4I lBpwQDFqnRJrZBTRyUYFCCQQkGJRiUYFCCQQnKJuaQ [file] dv08PVij0Fk61jabCooXstJCQI/Cesh5WB3w7HpnZK/maintenance equipment [file] Xw4Uu623VTZsZDMKGup+EiqaqKMhnWanDVNAUMQ1YUQVZIGYM6E= ID Date Data Source [id number] 02/26/2020 11:11:16 AM EST [facility]anner[facility]IE NT INFORMATIONPatient MRN Name Date of Age Gend*PT [id number] Italia Tran 1975 44 years F OPPT Location Admission Date/Time Visit ID Attending Provider --- --- --- Adebayo Ndiaye MD([id number]) EPI ID CSN Admitting Provider [id number] ---OUTPATIENT / OBSERVATIONAL SURGICAL OR INVASIVE PROCEDUREName: Italia Tran : 1975 Sex: female Care Provider: Jacinda Scherer Physician: Dr. Ndiaye.HISTORY OF PRESENT ILLNESS: 44 years old white female with a history of type 1diabetes and end-stage renal disease. She is followed by her gis coordinator, . She is currently on dialysis and [...] UPPER EXTREMITY LEFT.; Surgeon:Adebayo Ndiaye MD; Location: [facility]; Service: Vascular; Laterality:Left; CATARACT EXTRACTION EXTRACAPSULAR W/ [...] and Tuesday Historical Provider, vitamin D, Ergocalciferol, [id number] UNITS CAPS Take 1 capsule by mouth [...] thyromegaly. No carotid bruits.MENTAL / NEUROLOGICAL STATUS: [id number]: Clear to auscultation. No wheezes, rhonchi or [...] parts of this document, were dictated using [email or web address] software. A reasonable attempt at proofreading has beenmade to minimize errors. Please call with any questions or corrections.* Name Value Range Interpretation Code Description Data Mira rce(s) Supporting Document(s) ID Date Data Source [id number] 02/26/2020 04:52:57 PM EST [facility] Name Value Range Interpretation Code Description Data Mira rce(s) Supporting Document(s) HEMOGLOBIN A1C @ 8.3 % (4.0-6.0) H [facility] Performed using Siemens [place] immunoassa y.Care must be taken when interpreting DzU2kbazupzi in patients with a hemoglobin variantor decreased erythrocyte lifespan. Values 5.7 - 6.4% suggest prediabetes.Values >=6.5% are diagnostic for diabetes.REFERENCE: DIABETES CARE 2018: 41(S13-S27). EST AVERAGE GLUCOSE 192 mg/dL [facility] ID Date Data Source [id number] 02/26/2020 04:55:53 PM EST [facility] Name Value Range Interpretation Code Description Data Mira rce(s) Supporting Document(s) SODIUM 137 mmol/L (136-145) [facility] POTASSIUM 4.8 mmol/L (3.6-5.2) [facility] CHLORIDE 98 mmol/L (100-108) L [facility] CO2 30 mmol/L (22-31) [facility] ANION GAP 9 mmol/L (7-16) [facility] UREA NITROGEN 43 mg/dL (7-24) H [facility] CREATININE 3.66 mg/dL (0.60-1.00) H [facility] BUN/CREAT RATIO 11.7 RATIO (10.0-20.0) [facility] GLUCOSE 246 mg/dL (70-99) H [facility] CALCIUM 8.7 mg/dL (8.4-10.2) [facility] GFR 14 ml/min/1.73m2 (>59) L [facility] GFR ( AMER) 16 ml/min/1.73m2 (>59) L [facility] GFR INTERPRETATION [facility] --NORMAL KIDNEY FUNCTION OR MILD DISEASE - GFR >OR= 60CHRONIC KIDNEY DISEASE - GFR 15 - 59RENAL FAILURE - GFR <15 Est. GFR calculation based on the MDRDstudy equation, which assumes a steadystate for creatinine. Est. GFR should notbe used for medication dosing. ID Date Data Source [id number] 02/26/2020 04:26:43 PM EST [facility] Name Value Range Interpretation Code Description Data Mira rce(s) Supporting Document(s) WBC 4.0 10*3/uL (4.1-11.0) L [facility] RBC 3.02 10*6/uL (4.00-5.40) L [facility] HGB 10.6 g/dL (12.0-16.0) L [facility] HCT 32.1 % (36.0-47.0) L [facility] MCV 106.3 fL (80.0-95.0) [facility] MCH 35.1 pg (27.0-32.0) [facility] MCHC 33.0 g/dL (32.0-36.0) [facility] RDW 17.5 % (10.5-14.5) H [facility] PLT 139 10*3/uL (150-450) L [facility] MPV 9.2 fL (7.1-10.7) [facility] ID Date Data Source [id number] 02/23/2020 08:30:00 AM EST LU[facility] ARMAND[facility] Name Value Range Interpretation Code Description Data Mira rce(s) Supporting Document(s) SARS coronavirus 2 RNA [place] This lab was ordered by [facility] [employer] [facility] and reported by [facility]. ID Date Data Source [id number] 02/24/2020 02:10:47 PM EST [facility] Name Value Range Interpretation Code Description Data Mira rce(s) Supporting Document(s) SARS-COV-2 KEN[facility]ATTA [facility] Millie mantilla [facility] Not DetectedReference range: Not Detecte d This nucleic acid amplification test was developed and its performance characteristics determined by [employer]. Nucleic acid amplification tests include PCR and [...] detected) result in this assay. Performed At: [facility] [address] [place], [place] [id number] Rosaura Horner PhD Ph:[phone] Procedure Social History Code Duration Value Status Description Data Source(s ) Smoking 12/15/2020 12:00:00 AM EDT Never Smoker completed Never S moker [facility] Smoking 2020 12:00:00 AM EDT Never Smoker completed Never S moker [facility]) Smoking 2020 12:00:00 AM EDT Never Smoker completed Never S moker eCW1 ([facility]) Smoking 2020 12:00:00 AM EDT Never Smoker completed Never S moker eCW1 ([facility]) Smoking 2020 12:00:00 AM EDT Never Smoker completed Never S moker eCW1 ([facility]) Smoking 10/17/2020 12:00:00 AM EDT Never Smoker completed Never S moker eCW1 ([facility]) Smoking 09/24/2020 12:00:00 AM EDT Never Smoker completed Never S moker eCW1 ([facility]) Smoking 09/24/2020 12:00:00 AM EDT Never Smoker completed Never S moker eCW1 ([facility]) Smoking 09/12/2020 12:00:00 AM EDT Never Smoker completed Never S moker eCW1 ([facility]) Smoking 09/12/2020 12:00:00 AM EDT Never Smoker completed Never S moker eCW1 ([facility]) Smoking 09/12/2020 12:00:00 AM EDT Never Smoker completed Never S moker eCW1 ([facility]) Smoking 08/20/2020 12:00:00 AM EDT Never Smoker completed Never S moker eCW1 ([facility]) Smoking 08/20/2020 12:00:00 AM EDT Never Smoker completed Never S moker eCW1 ([facility]) Smoking 08/20/2020 12:00:00 AM EDT Never Smoker completed Never S moker eCW1 ([facility]) Smoking 08/13/2020 12:00:00 AM EDT Never Smoker completed Never S moker eCW1 ([facility]) Smoking 08/06/2020 12:00:00 AM EDT Never Smoker completed Never S moker eCW1 ([facility]) Smoking 07/30/2020 12:00:00 AM EDT Never Smoker completed Never S moker eCW1 ([facility]) Smoking 07/23/2020 12:00:00 AM EDT Never Smoker completed Never S moker eCW1 ([facility]) Smoking 07/16/2020 12:00:00 AM EDT Never Smoker completed Never S moker eCW1 ([facility]) Smoking 07/09/2020 12:00:00 AM EDT Never Smoker completed Never S moker eCW1 ([facility]) Smoking 07/09/2020 12:00:00 AM EDT Never Smoker completed Never S moker eCW1 ([facility]) Smoking 07/02/2020 12:00:00 AM EDT Never Smoker completed Never S moker eCW1 ([facility]) Smoking 07/02/2020 12:00:00 AM EDT Never Smoker completed Never S moker eCW1 ([facility]) Smoking 03/19/2020 12:00:00 AM EST Patient has never smoked co mpleted Patient has never smoked [facility] ([facility]) Smoking 03/07/2020 12:00:00 AM EST Patient has never smoked co mpleted Patient has never smoked [facility] ([facility]) Alcohol intake 02/26/2020 12:00:00 AM EST No completed [facility] Smoking 02/26/2020 12:00:00 AM EST Never smoker completed Never s moker [facility] Vital Signs ID Date Data Source UNK Name Value Range Interpretation Code Description Data Source(s) Body weight 147 [lb_av] 147 [lb_av] eCW1 ([facility]) Body weight 66.68 kg 66.68 kg W1 ([facility]) Body height 64 [in_i] 64 [in_i] eCW1 ([facility]) Body mass index (BMI) [Ratio] 25.23 kg/m2 25.23 kg/m2 W1 ([facility]) Heart rate 82 /min 82 /min eCW1 ([facility]) Respiratory rate 16 /min 16 /min eCW1 ([facility]) Body temperature 96.4 [degF] 96.4 [degF] eCW1 ( [facility]) Systolic blood pressure 208 mm[Hg] 208 mm[Hg] e CW1 ([facility]) Diastolic blood pressure 89 mm[Hg] 89 mm[Hg] eCW1 ([facility]) Body weight 147 [lb_av] 147 [lb_av] eCW1 ([facility]) Body height 64 [in_i] 64 [in_i] eCW1 ([facility]) Body mass index (BMI) [Ratio] 25.23 kg/m2 25.23 kg/m2 eCW1 ([facility]) Heart rate 88 /min 88 /min eCW1 ([facility]) Respiratory rate 16 /min 16 /min eCW1 ([facility]) Body temperature 97.8 [degF] 97.8 [degF] eCW1 ( [facility]) Systolic blood pressure 242 mm[Hg] 242 mm[Hg] e CW1 ([facility]) Diastolic blood pressure 101 mm[Hg] 101 mm[Hg] eCW1 ([facility]) Body weight 147 [lb_av] 147 [lb_av] eCW1 ([facility]) Body weight kg eCW1 ([facility]) Body height 64 [in_i] 64 [in_i] eCW1 ([facility]) Body mass index (BMI) [Ratio] 25.23 kg/m2 25.23 kg/m2 eCW1 ([facility]) Heart rate 82 /min 82 /min eCW1 ([facility]) Respiratory rate 16 /min 16 /min eCW1 ([facility]) Body temperature 98.4 [degF] 98.4 [degF] eCW1 ( [facility]) Systolic blood pressure 200 mm[Hg] 200 mm[Hg] e CW1 ([facility]) Diastolic blood pressure 83 mm[Hg] 83 mm[Hg] eCW1 ([facility]) Body weight 147 [lb_av] 147 [lb_av] eCW1 ([facility]) Body height 64 [in_i] 64 [in_i] eCW1 ([facility]) Body mass index (BMI) [Ratio] 25.23 kg/m2 25.23 kg/m2 eCW1 ([facility]) Heart rate 63 /min 63 /min eCW1 ([facility]) Respiratory rate 18 /min 18 /min eCW1 ([facility]) Body temperature 97.0 [degF] 97.0 [degF] eCW1 ( [facility]) Systolic blood pressure 203 mm[Hg] 203 mm[Hg] e CW1 ([facility]) Diastolic blood pressure 86 mm[Hg] 86 mm[Hg] eCW1 ([facility]) Body weight 147 [lb_av] 147 [lb_av] eCW1 ([facility]) Body weight kg eCW1 ([facility]) Body height 64 [in_i] 64 [in_i] eCW1 ([facility]) Body mass index (BMI) [Ratio] 25.23 kg/m2 25.23 kg/m2 eCW1 ([facility]) Heart rate 66 /min 66 /min eCW1 ([facility]) Respiratory rate 18 /min 18 /min eCW1 ([facility]) Body temperature 98.5 [degF] 98.5 [degF] eCW1 ( [facility]) Systolic blood pressure 207 mm[Hg] 207 mm[Hg] e CW1 ([facility]) Diastolic blood pressure 86 mm[Hg] 86 mm[Hg] eCW1 ([facility]) Body weight 147 [lb_av] 147 [lb_av] eCW1 ([facility]) Body weight kg eCW1 ([facility]) Body height 64 [in_i] 64 [in_i] eCW1 ([facility]) Body mass index (BMI) [Ratio] 25.23 kg/m2 25.23 kg/m2 eCW1 ([facility]) Heart rate 77 /min 77 /min eCW1 ([facility]) Respiratory rate 18 /min 18 /min eCW1 ([facility]) Body temperature 98.4 [degF] 98.4 [degF] eCW1 ( [facility]) Systolic blood pressure 146 mm[Hg] 146 mm[Hg] e CW1 ([facility]) Diastolic blood pressure 82 mm[Hg] 82 mm[Hg] eCW1 ([facility]) Body weight 147 [lb_av] 147 [lb_av] eCW1 ([facility]) Body weight kg eCW1 ([facility]) Body height 64 [in_i] 64 [in_i] eCW1 ([facility]) Body mass index (BMI) [Ratio] 25.23 kg/m2 25.23 kg/m2 eCW1 ([facility]) Heart rate 71 /min 71 /min eCW1 ([facility]) Respiratory rate 17 /min 17 /min eCW1 ([facility]) Body temperature 98.2 [degF] 98.2 [degF] eCW1 ( [facility]) Systolic blood pressure 150 mm[Hg] 150 mm[Hg] e CW1 ([facility]) Diastolic blood pressure 72 mm[Hg] 72 mm[Hg] eCW1 ([facility]) Body weight 147 [lb_av] 147 [lb_av] eCW1 ([facility]) Body weight kg eCW1 ([facility]) Body height 64 [in_i] 64 [in_i] eCW1 ([facility]) Body mass index (BMI) [Ratio] 25.23 kg/m2 25.23 kg/m2 eCW1 ([facility]) Heart rate 68 /min 68 /min eCW1 ([facility]) Respiratory rate 18 /min 18 /min eCW1 ([facility]) Body temperature 98.6 [degF] 98.6 [degF] eCW1 ( [facility]) Systolic blood pressure 209 mm[Hg] 209 mm[Hg] e CW1 ([facility]) Diastolic blood pressure 90 mm[Hg] 90 mm[Hg] eCW1 ([facility]) Body weight 147 [lb_av] 147 [lb_av] eCW1 ([facility]) Body weight kg eCW1 ([facility]) Body height 64 [in_i] 64 [in_i] eCW1 ([facility]) Body mass index (BMI) [Ratio] 25.23 kg/m2 25.23 kg/m2 eCW1 ([facility]) Heart rate 74 /min 74 /min eCW1 ([facility]) Respiratory rate 20 /min 20 /min eCW1 ([facility]) Body temperature 98.2 [degF] 98.2 [degF] eCW1 ( [facility]) Systolic blood pressure 210 mm[Hg] 210 mm[Hg] e CW1 ([facility]) Diastolic blood pressure 90 mm[Hg] 90 mm[Hg] eCW1 ([facility]) Body weight 147 [lb_av] 147 [lb_av] eCW1 ([facility]) Body weight kg eCW1 ([facility]) Body height 64 [in_i] 64 [in_i] eCW1 ([facility]) Body mass index (BMI) [Ratio] 25.23 kg/m2 25.23 kg/m2 eCW1 ([facility]) Heart rate 65 /min 65 /min eCW1 ([facility]) Respiratory rate 18 /min 18 /min eCW1 ([facility]) Body temperature 98 [degF] 98 [degF] eCW1 ([facility]) Systolic blood pressure 179 mm[Hg] 179 mm[Hg] e CW1 ([facility]) Diastolic blood pressure 77 mm[Hg] 77 mm[Hg] eCW1 ([facility]) Body weight 147 [lb_av] 147 [lb_av] eCW1 ([facility]) Body weight kg eCW1 ([facility]) Body height 64 [in_i] 64 [in_i] eCW1 ([facility]) Body mass index (BMI) [Ratio] 25.23 kg/m2 25.23 kg/m2 eCW1 ([facility]) Heart rate 66 /min 66 /min eCW1 ([facility]) Respiratory rate 18 /min 18 /min eCW1 ([facility]) Body temperature 97.9 [degF] 97.9 [degF] eCW1 ( [facility]) Systolic blood pressure 150 mm[Hg] 150 mm[Hg] e CW1 ([facility]) Diastolic blood pressure mm[Hg] eCW1 ([facility]) Body weight 147.5 [lb_av] 147.5 [lb_av] eCW1 ([facility]) Body height 64 [in_i] 64 [in_i] eCW1 ([facility]) Body mass index (BMI) [Ratio] 25.32 kg/m2 25.32 kg/m2 eCW1 ([facility]) Heart rate 72 /min 72 /min eCW1 ([facility]) Respiratory rate 16 /min 16 /min eCW1 ([facility]) Body temperature 97.1 [degF] 97.1 [degF] eCW1 ( [facility]) Systolic blood pressure 201 mm[Hg] 201 mm[Hg] e CW1 ([facility]) Diastolic blood pressure 79 mm[Hg] 79 mm[Hg] eCW1 ([facility]) Body height 64 [in_i] 64 [in_i] [facility] ([facility] 5'4" Heart rate 61 /min 61 /min [facility] ([facility]) Systolic blood pressure--sitting 218 mm[Hg] 218 mm[Hg] [facility] ([facility]) CBP, adult cuff/Ra Diastolic blood pressure--sitting 99 mm[Hg] 99 mm[Hg] [facility] ([facility]) CBP, adult cuff/Ra Systolic blood pressure 154 mm[Hg] 154 mm[Hg] [facility] Diastolic blood pressure 78 mm[Hg] 78 mm[Hg] [facility] Heart rate 63 /min 63 /min [facility] Body height 162.6 cm 162.6 cm [facility] Body weight 67.132 kg 67.132 kg [facility] Body mass index (BMI) [Ratio] 25.40 kg/m2 25.40 kg/m2 [facility] Oxygen saturation in Arterial blood by Pulse oximetry 99 % 99 % [facility] Body weight 70.200 kg 70.200 kg [facility] ([facility] Oxygen saturation in Arterial blood by Pulse oximetry 100 % 100 % [facility] ([facility]) Heart rate 68 /min 68 /min [facility] ([facility]) Diastolic blood pressure 88 mm[Hg] 88 mm[Hg] [facility] ([facility]) Respiratory rate 16 /min 16 /min [facility] ( [facility]) Body temperature 97.5 [degF] 97.5 [degF] [facility] ([facility]) Systolic blood pressure 178 mm[Hg] 178 mm[Hg] M EDENT ([facility]) Body weight 154.75 [lb_av] 154.75 [lb_av] MEDEN T ([facility]) Diastolic blood pressure 76 mm[Hg] 76 mm[Hg] [facility] ([facility]) Body weight 69.401 kg 69.401 kg [facility] ([facility]) Oxygen saturation in Arterial blood by Pulse oximetry 100 % 100 % [facility] ([facility]) Heart rate 62 /min 62 /min [facility] ([facility]) Systolic blood pressure 178 mm[Hg] 178 mm[Hg] M EDENT ([facility]) Body temperature 97.2 [...] k g/m2 [facility] ([facility]) ID Date Data Source [id number] 05/14/2020 04:47:29 PM EDT [facility] Name Value Range Interpretation Code Description Data Source(s) WEIGHT RECORDED 156.[address] [facility] Planned Activity Planned Date Details Description Data Source (s) Fluconazole 150 MG Oral Tablet 09/12/2020 12:00:00 AM EDT [facility] Fluconazole 150 MG Oral Tablet 09/12/2020 12:00:00 AM EDT eCW1 ([facility]) Fluconazole 150 MG Oral Tablet 09/12/2020 12:00:00 AM EDT eCW1 ([facility]) Acetaminophen 325 MG / Hydrocodone Bitartrate 5 MG Ora l Tablet 12/12/2014 12:00:00 AM EDT [facility] Biotin 10 MG Oral Tablet [facility] Aspirin 325 MG Oral Tablet [facility] atorvastatin 10 MG Oral Tablet [facility] Amlodipine 10 MG Oral Tablet [facility] 1 ML heparin sodium, porcine 1000 UNT/ML Injection [facility] 1 ML heparin sodium, porcine 1000 UNT/ML Injection [facility] Norgestim-Eth Estrad Triphasic (TRI-SPRINTEC) 0.18/0.215/0.2 5 MG-35 MCG TABS [facility] torsemide 20 MG Oral Tablet [facility] lanthanum carbonate 500 MG Chewable Tablet [facility] ferric citrate 1000 MG Oral Tablet [facility]
[2021-01-09] MEDS ORDERED: PATIROMER SORBITEX CALCIUM 8.4 GM POWDER PACKET (VELTASSA) PO ONE (00:10)
[2021-01-09] MEDS ORDERED: **hydrALAZINE** 50 MG TAB PO ONE (04:25)
[2021-01-09 06:45] LABS: HEMATOCRIT 31.7 % (36.0-47.0); HEMOGLOBIN 10.6 g/dl (12.0-15.5); MEAN CORPUSCULAR HEMOGLOBIN 35.8 pg (27.0-33.0); MEAN CORPUSCULAR HGB CONC 33.4 g/dl (32.0-36.5); MEAN CORPUSCULAR VOLUME 107.1 fl (80.0-96.0); PLATELET COUNT, AUTOMATED 151 10^3/uL (150-450); RED BLOOD COUNT 2.96 10^6/uL (4.00-5.40); WHITE BLOOD COUNT 5.1 10^3/uL (4.0-10.0)
[2021-01-09 07:13] LABS: CK-MB VALUE MASS 7.9 NG/ML (<3.6); MB/CK RELATIVE INDEX 10.68 (< OR =4); TROPONIN I 0.12 NG/ML (< 0.10)
[2021-01-09 07:18] LABS: CREATININE FOR GFR 6.5 MG/DL (0.55-1.30); GLOMERULAR FILTRATION RATE 7.4 (>58); MAGNESIUM LEVEL 4.1 MG/DL (1.8-2.4); POTASSIUM SERUM 6.7 MEQ/L (3.5-5.1)
[2021-01-09] MEDS ORDERED: SODIUM CHLORIDE 0.9% 1000ML IV PRN (07:55)
[2021-01-09] MEDS ORDERED: LIDOCAINE 1% SDV 5ML VIAL SC PRN (07:55)
--- NOTE | 2021-01-09 07:57 | ECGEPIP ---
[facility] - ED Test Date: 2021-01-08 Pat Name: [facility] Department: Room: - Gender: Female Crtts: JOSE : 1975 Requested By: SARA CAT Order Number: [id number] Reading MD: Darryl Reed Measurements Intervals [place] Rate: 59 P: 49 WA: 186 QRS: 104 QRSD: 94 T: 89 QT: 468 QTc: 463 Interpretive Statements Sinus bradycardia Rightward axis Possible Anterior infarct , age undetermined SIMILAR TO 08/27/20 Electronically Signed on 01-09-2021 7:57:25 EST by Darryl Reed
[2021-01-09] MEDS: HumuLIN N INSULIN (NovoLIN N) PER UNIT SC SCH ×2 (09:00→22:00)
[2021-01-09] MEDS: LACTOBACILLUS ACIDOPHILUS CAP (BACID) PO SCH ×2 (09:00→21:59)
[2021-01-09] MEDS: **hydrALAZINE** 10 MG TAB PO SCH ×2 (09:00→22:01)
[2021-01-09] MEDS: HEPARIN SOD (PORCINE) 5000UNITS/ML 1ML VIAL/SYRINGE SC SCH ×2 (09:00→22:00)
[2021-01-09] MEDS: FIDAXOMICIN 200 MG TAB (DIFICID) PO SCH ×2 (09:00→22:39)
[2021-01-09] MEDS: HumaLOG INSULIN (NovoLOG) PER UNIT SC SCH ×4 (12:00→21:00)
--- NOTE | 2021-01-09 13:03 | CR ---
NEPHROLOGY CONSULTATION DATE: 01/09/2021 REQUESTING CLINICIAN: Naldo Montoya MD REASONS FOR CONSULTATION: Hyperkalemia and shortness of breath in this lady with end-stage renal disease. HISTORY OF PRESENT ILLNESS: Ms. Nye is a 46-year-old female with a long history of poorly controlled diabetes, hypertension, end-stage renal disease, recurrent diarrhea with prior history of C. diff colitis, history of a failed pancreatic transplant, history of stroke shortly after transplant and history of congestive heart failure. She presented to the Emergency Room last evening with shortness of breath of 1 week duration. She missed 2 dialysis treatments due to diarrhea. She denies any fever or chills. A nephrology consultation was requested and patient is seen this morning. PAST MEDICAL HISTORY: Significant for: 1. Long standing insulin requiring diabetes. 2. Hypertension. 3. End-stage renal disease. 4. Hyperlipidemia. 5. History of gastroesophageal reflux disease. 6. History of recurrent diarrhea with prior history of C. diff colitis. 7. History of anemia. 8. Secondary hyperparathyroidism. 9. History of a failed pancreatic transplant. 10. History of stroke. PAST SURGICAL HISTORY: Significant for: 1. Bilateral cataract removal. 2. Left upper extremity AV fistula placement. 3. Kidney-pancreas transplant with subsequent failure. 4. Uterine ablation. 5. Tubal ligation. 6. Left fifth toe amputation. 7. Colonoscopy. FAMILY HISTORY: Noncontributory. PERSONAL AND SOCIAL HISTORY: Patient denies any alcohol, drug or tobacco use. She is and lives with her . ALLERGIES: VANCOMYCIN. MEDICATIONS: Home medications include: 1. Vitamin D 50,000 units once a week. 2. Lexapro 10 mg at bedtime. 3. Multivitamin 1 tablet daily. 4. Hydralazine 10 mg twice a day. 5. Humalog insulin per sliding scale. 6. Humulin N insulin 10 units in the morning. 7. Humulin N insulin 8 units in the evening. 8. Losartan 100 mg daily. REVIEW OF SYSTEMS: Patient denies any fever or chills. Ears, nose and throat: Unremarkable. Cardiovascular system: Significant for shortness of breath and leg edema. She has chronic edema on her lower legs. She denies any chest pain. Respiratory system: Negative for hemoptysis or pleuritic type chest pain. She does have some cough. GI system: Significant for recurrent diarrhea. She has a prior history of C. diff colitis. She denies any abdominal pain at present. system: Negative for dysuria or hematuria. She has a history of a failed kidney and pancreatic transplant. Endocrine system: Significant for diabetes and secondary hyperparathyroidism. Neurological system: Significant for prior stroke and peripheral neuropathy. She denies any seizures. Hematological system: Significant for anemia of chronic kidney disease. Psychosocial system: Significant for depression and noncompliance with her diet and medications. She is also noncompliant with dialysis as she did not show up for dialysis last week. Skin: Significant for redness on both legs. PHYSICAL EXAMINATION: Temperature 98 degrees Fahrenheit, heart rate 58 per minute and respiratory rate 20 per minute. Blood pressure was as high as 201/88 mmHg pan devulcanizer helper. It is now down to 156/73 mmHg. Head: Atraumatic. Pupils equal and reactive to light, sclerae is anicteric. Oral mucosa is moist and healthy. Neck: Supple and JVD moderately elevated. Heart: Sounds are regular with a systolic murmur grade 1/6. Lungs: With slightly diminished breath sounds and basilar rales bilaterally. Abdomen: Soft and nontender and bowel sounds are normal. Extremities: Without any cyanosis or clubbing. She has chronic stasis dermatitis on both legs. Neurologically: She is awake and at her baseline mentation without any focal deficit. LABORATORY DATA: Her labs done last evening and this morning are reviewed. Today her WBC count is 5.1, hemoglobin 10.6, hematocrit 31.7 and platelets 141. Last night her sodium was 130 and potassium 5.8; this morning sodium is 132 and potassium is up to 6.7. CO2 19, BUN 143 and creatinine 6.5. Calcium level 9 and magnesium 4.1. Troponin 0.13 and 0.12. IMAGING STUDIES: Chest x-ray done in the Emergency Room last evening was consistent with mild right pleural effusion and increased primary vascular congestion. PROBLEMS AND PLAN: 1. Shortness of breath: Most likely this is related to missed dialysis treatments and hypervolemia. I have already arranged urgent hemodialysis this morning and she is in the dialysis room already. We will try to remove about 4 liters of fluid as tolerated. 2. Hypertension: Her blood pressure was uncontrolled pan devulcanizer helper. This seems to be doing much better now with the fluid removal. We will try to remove about 4 liters as tolerated. I would recommend to resume her chronic medications including losartan and hydralazine. 3. Hyperkalemia: She has severe hyperkalemia related to end-stage renal disease and missed dialysis treatments. She will be dialyzed with a 1 mEq potassium bath. Her electrolytes should be repeated. 4. End-stage renal disease: Patient has been on maintenance hemodialysis; however, she missed 2 dialysis treatments. She will be dialyzed today and then we will re-evaluate her tomorrow for further need for dialysis. 5. Anemia: Her anemia is stable and does not need any urgent intervention. Thank you for involving me in the care of Ms. Nye. I will follow her along with you.
[2021-01-09 16:00] VITALS: BP 130/60
[2021-01-09] MEDS: LOSARTAN 50MG TABLET PO SCH (17:41)
[2021-01-09 19:25] VITALS: BP 171/78
[2021-01-09] MEDS: ESCITALOPRAM OXALATE 10 MG TAB (LEXAPRO) PO SCH (21:59)
[2021-01-10] MEDS: LACTOBACILLUS ACIDOPHILUS CAP (BACID) PO SCH (05:49)
[2021-01-10] MEDS: FIDAXOMICIN 200 MG TAB (DIFICID) PO SCH (05:49)
[2021-01-10 05:50] VITALS: BP 126/60
[2021-01-10] MEDS: LOSARTAN 50MG TABLET PO SCH (05:50)
[2021-01-10] MEDS: **hydrALAZINE** 10 MG TAB PO SCH (05:50)
[2021-01-10 05:51] VITALS: BP 126/60
[2021-01-10 08:29] LABS: HEMATOCRIT 27.9 % (36.0-47.0); HEMOGLOBIN 9.2 g/dl (12.0-15.5); MEAN CORPUSCULAR HEMOGLOBIN 34.6 pg (27.0-33.0); MEAN CORPUSCULAR VOLUME 104.9 fl (80.0-96.0); PLATELET COUNT, AUTOMATED 124 10^3/uL (150-450); RED BLOOD COUNT 2.66 10^6/uL (4.00-5.40); WHITE BLOOD COUNT 3.8 10^3/uL (4.0-10.0)
[2021-01-10] MEDS: HumaLOG INSULIN (NovoLOG) PER UNIT SC SCH ×2 (08:40→12:00)
[2021-01-10] MEDS: HEPARIN SOD (PORCINE) 5000UNITS/ML 1ML VIAL/SYRINGE SC SCH (08:48)
[2021-01-10] MEDS: HumuLIN N INSULIN (NovoLIN N) PER UNIT SC SCH (08:48)
[2021-01-10] MEDS ORDERED: RISATAB3 PO (08:49)
[2021-01-10] MEDS ORDERED: FIDA200TA PO (08:49)
[2021-01-10 08:52] LABS: CALCIUM LEVEL 8.5 MG/DL (8.5-10.1); CREATININE FOR GFR 4.06 MG/DL (0.55-1.30); GLOMERULAR FILTRATION RATE 12.7 (>58); MAGNESIUM LEVEL 2.9 MG/DL (1.8-2.4); POTASSIUM SERUM 4.3 MEQ/L (3.5-5.1)
--- NOTE | 2021-01-10 10:44 | IPN ---
INPATIENT NEPHROLOGY PROGRESS NOTE DATE: 01/10/2021 SUBJECTIVE: Italia seen and examined this morning at the bedside. She is discharge pending. She was dialyzed yesterday without any issues; 4 liters of fluid was removed. She offers no complaints. PHYSICAL EXAMINATION: Vital signs: Temperature 97, pulse 62, respiratory rate 18, blood pressure 126/60, saturating 97% on room air. Intake yesterday was no recorded. Dialysis yesterday removed 4 liters. Weight on bed scale today is 67.9 kg. General: Patient is seen awake, alert, oriented, comfortable and in no distress. HEENT: Extraocular muscles are intact. Tongue is moist. Neck: Supple. Jugular veins are mildly elevated. Heart sounds: Regular with a faint systolic murmur. Lungs: Have improved aeration today without any rales. Abdomen: Soft and nontender. Extremities: No cyanosis or clubbing. She has chronic stasis dermatitis on both legs. Dialysis access: She has a patent left upper extremity AV fistula with thrill and bruit. Neurologic: She is awake, alert and baseline mentation. She is oriented times 3, interactive, conversational. LABORATORY DATA: Labs today show: White count 3.8, hemoglobin 9.2, platelets 124. Sodium 134, potassium 4.3, BUN 61, creatinine 4. INPATIENT MEDICATIONS: Reviewed by myself and no changes as compared to yesterday. PROBLEMS/PLAN: 1. End-stage renal disease: On hemodialysis on a Tuesday, , Tuesday schedule. Patient was dialyzed yesterday after missing several outpatient treatments. Her hyperkalemia has resolved. Her volume status has improved. She is suitable for discharge today from a nephrology point of view and she will follow up in the outpatient dialysis unit this afternoon for her regular dialysis treatment. 2. Hyperkalemia: It was secondary to missed dialysis treatment and it has improved with dialysis yesterday for 4 hours. Potassium level today is 4.3. 3. Hypervolemic hyponatremia secondary to fluid overload from missed dialysis treatment: It has improved with dialysis, 4 liters of fluid was removed yesterday. 4. Anemia of chronic renal failure: It will be managed through the outpatient dialysis unit. 5. Disposition: Patient is stable for discharge to follow up today in the outpatient dialysis unit for her regularly scheduled treatment.
--- NOTE | 2021-01-10 13:34 | DS.PDOC ---
Discharge Summary General Date of Admission Jan 08, 2021 at 23:48 Date of Discharge 01/10/21 Discharge Summary PROCEDURES PERFORMED DURING STAY: [None]. DISCHARGE DIAGNOSES: #Diarrhea #SOB/plerual effusion #medical non-compliance #Hyperkalemia # DM1 # HTN # Depression/anxiety COMPLICATIONS/CHIEF COMPLAINT: Missed Dialysis; Pleural Effusion,Right. HPI/Hospital Course: 45 y/o female with a pmh of esrd on tths dialysis s/p failed renal transplant, dm1 s/p failed pancreatic transplant, hld, htn, gerd who presents to our ED with complaints of fatigue, malaise, diarrhea, and sob x1 week that has caused her to miss her last two dialysis sessions. Patient tells me that her last dialysis session was on 01/03. Patient states that after this, she began to develop malaise and diarrhea that have progressively gotten worse. Patient states that she is having approximately 3 loose stools per day at this time but denies any bloody or dark stools. Patient states that she has also noticed an increase in shortness of breath over the past few days. Patient admits to some associated nausea, abdominal discomfort, chills. Patient denies any fevers, uri sx, chest pain, palpitations, chest tightness, kayla abd pain, vomiting.] She was seen in consultation by nephrology and underwent dialysis. Her electrolyte abnormalities and fluid status improved. Case discussed with thoracic surgery. Pleural effusion deemed to be secondary to non-compliance with HD, and medical management recommended. She is saturating at 99% on room air, without any respiratory distress. She was deemed safe for discharge home with outpatient follow-up including dialysis on day of discharge. DISCHARGE MEDICATIONS: Please see below. ALLERGIES: Please see below. PHYSICAL EXAMINATION ON DISCHARGE: Vital Signs: reviewed General: NAD, lying comfortably in bed HEENT: NC/AT, EOMI Neck: supple, no masses Chest: lungs CTA B/L Heart: +S1S2, RRR, systolic murmur Abd: soft, NT, ND, +BS Ext: no edema Skin: no rashes MSK: full ROM at large joints Neuro: no gross focal deficits Psych: AAOx3 LABORATORY DATA: Please see below. ACTIVITY: [As tolerated]. DISPOSITION: 01 Home, Self-Care. DISCHARGE INSTRUCTIONS: 1. PCP in 3-5 days 2. nephrology/HD as scheduled DISCHARGE CONDITION: [Stable]. TIME SPENT ON DISCHARGE: 35 minutes. Vital Signs/I&Os Vital Signs Date Time Temp Pulse Resp B/P (MAP) Pulse Ox O2 Delivery O2 Flow Rate FiO2 01/10/21 05:51 97.0 62 18 126/60 (82) 97 Room Air I&O- Last 24 Hours up to 6 AM 01/10/21 06:00 Intake Total 500 ml Output Total 4000 ml Balance -3500 ml Laboratory Data Labs 24H Laboratory Tests 2 01/09/21 15:52: Bedside Glucose (Misc Panel) 184H 01/09/21 19:37: Bedside Glucose (Misc Panel) 199H 01/10/21 07:54: Nucleated Red Blood Cells % (auto) 0.0, Anion Gap 14, Glomerular Filtration Rate 12.7L, Calcium Level 8.5, Magnesium Level 2.9H 01/10/21 08:15: Bedside Glucose (Misc Panel) 178H 01/10/21 11:31: Bedside Glucose (Misc Panel) 86 CBC/BMP Laboratory Tests 01/10/21 07:54 FSBS Laboratory Tests Test 01/09/21 15:52 01/09/21 19:37 01/10/21 08:15 01/10/21 11:31 Range/Units Bedside Glucose (Misc Panel) 184 199 178 86 70-105 MG/DL Discharge Medications Scheduled Ergocalciferol (Vitamin D2) (Vitamin D2) 50,000 Units Cap, 50,000 UNITS PO QWEEK, (Reported) WEDNESDAYS Escitalopram Oxalate (Lexapro) 10 Mg Tab, 10 MG PO QHS, (Reported) Fidaxomicin (Dificid) 200 Mg Tablet, 200 MG PO BID Folic Acid/Vit B Complex and C (Lesly-Rocío Tablet) 0.8 Mg Tablet, 1 TAB PO DAILY, (Reported) Hydralazine HCl (Hydralazine HCl) 10 Mg Tablet, 10 MG PO BID, (Reported) Insulin Human Lispro (Humalog) 100 Unit/1 Ml Vial, 1 DOSE SC ACHS, (Reported) PER SLIDING SCALE Insulin Human NPH (Humulin N) 100 Unit/1 Ml Vial, 10 UNITS SC QAM, (Reported) Insulin Human NPH (Humulin N) 100 Unit/1 Ml Vial, 8 UNITS SC QPM, (Reported) L.acidoph/L.bulg/B.bif/S.therm (Eunice-Bid Caplet) 1 Each Tablet, 1 EA PO BID Losartan Potassium (Losartan Potassium) 100 Mg Tablet, 100 MG PO DAILY, (Reported) Allergies Coded Allergies: vancomycin (Verified Adverse Reaction, Intermediate, Hallucinations, 06/10/20) MARCELINO VARGAS MD Jan 10, 2021 13:34
== END 2021-01-10 13:15 | disposition home or self-care (01) | DRG 391 ==
LOC: M ED 20:01 → M ED INP 23:48 → ENRESERV 01-09 13:49 → M MS5PR 01-09 15:45
PROVIDERS: ADMIT Family Medicine; ATTEND Internal Medicine
PROC: 5A1D70Z Performance of Urinary Filtration, Intermittent, Less than 6 Hours Per Day (ICD-10-PCS; principal; 2021-01-08)
DX: R19.7 Diarrhea, unspecified (principal); N18.6 End stage renal disease; E10.10 Type 1 diabetes mellitus with ketoacidosis without coma; J90 Pleural effusion, not elsewhere classified; Z94.83 Pancreas transplant status; E87.1 Hypo-osmolality and hyponatremia; N25.81 Secondary hyperparathyroidism of renal origin; I12.0 Hypertensive chronic kidney disease with stage 5 chronic kidney disease or end stage renal disease; E87.5 Hyperkalemia; Z98.41 Cataract extraction status, right eye; Z98.42 Cataract extraction status, left eye; D63.1 Anemia in chronic kidney disease; Z91.15 Patient's noncompliance with renal dialysis; Z79.899 Other long term (current) drug therapy; Z79.4 Long term (current) use of insulin; Z88.8 Allergy status to other drugs, medicaments and biological substances; E78.5 Hyperlipidemia, unspecified; K21.9 Gastro-esophageal reflux disease without esophagitis

== ENCOUNTER → 2021-06-17 | Outpatient (CLI) | payer MEDICARE, BC ==
[~2021-06-17] MED LIST changes: +FIDA200TA PO; +LOSA100T45 PO; -LOSA100T50 PO; +LOSA25TA13 PO; -LOSA25TA14 PO; +RISATAB3 PO
== END ==
LOC: M PLAIMG 15:48
PROVIDERS: ATTEND Nurse Practitioner Family
DX: R06.00 Dyspnea, unspecified (principal)

== ENCOUNTER → 2021-07-31 | Outpatient (CLI) | payer MEDICARE, BC ==
[~2021-07-31] MED LIST changes: +DRIS50003 PO; +FERROUS SULFATE; +ISOVUE-300 61% 50ML VIAL As Ordered ONE; +LIDOCAINE 1% MDV 20ML VIAL As Ordered ONE; +MIDAZOLAM INJ 2MG/2ML VIAL (J2250 PER 1MG) As Ordered ONE; +NS 1,000 ML IV SCH; +ceFAZolin 2 GM/D5W 50 ML IV BAG (J0690 PER 500MG) As Ordered ONE; +ceFAZolin SOD 2 GM in IV 1 EA IV ONE; +diphenhydrAMINE 50MG/ML VIAL (J1200) As Ordered ONE; +fentaNYL 100 MCG/2 ML INJECTION As Ordered ONE
[2021-07-31 10:30] VITALS: BP 134/63
== END ==
LOC: M IRPRO 06:35
PROVIDERS: ATTEND Internal Medicine Nephrology
DX: N18.6 End stage renal disease (principal)
CPT/HCPCS: 36558; 99152; 99153; C1750; C1769; C1894; J0690; J1200; J1644; J2250; J3010; Q9967

== ENCOUNTER 2021-08-22 08:20 | Inpatient (IN) | payer MEDICARE, BC ==
[~2021-08-22] VITALS: Ht 162.6 cm; Wt 77.9 kg
[2021-08-22] VITALS (45 sets, daily range): BP systolic 72–199; BP diastolic 28–98
[~2021-08-22 08:20] MED LIST changes: -ISOVUE-300 61% 50ML VIAL As Ordered ONE; -LIDOCAINE 1% MDV 20ML VIAL As Ordered ONE; -MIDAZOLAM INJ 2MG/2ML VIAL (J2250 PER 1MG) As Ordered ONE; -NS 1,000 ML IV SCH; -ceFAZolin 2 GM/D5W 50 ML IV BAG (J0690 PER 500MG) As Ordered ONE; -ceFAZolin SOD 2 GM in IV 1 EA IV ONE; -diphenhydrAMINE 50MG/ML VIAL (J1200) As Ordered ONE; -fentaNYL 100 MCG/2 ML INJECTION As Ordered ONE
[2021-08-22] MEDS ORDERED: ACETAMINOPHEN 650 MG SUPP PR ONE (08:45)
[2021-08-22 09:02] LABS: ABG O2 SATURATION 98.7 % (95.0-99.0); ABG PARTIAL PRESSURE CO2 29.4 mmHg (35.0-45.0); ABG STANDARD HCO3 19.5 MEQ/L (22.0-26.0); ABG TOTAL CO2 18.9 MEQ/L (22.0-29.0); ABG pH (ARTERIAL) 7.404 UNITS (7.350-7.450)
[2021-08-22 09:28] LABS: HEMATOCRIT 25.7 % (36.0-47.0); HEMOGLOBIN 8.3 g/dl (12.0-15.5); MEAN CORPUSCULAR HEMOGLOBIN 34.4 pg (27.0-33.0); MEAN CORPUSCULAR HGB CONC 32.3 g/dl (32.0-36.5); MEAN CORPUSCULAR VOLUME 106.6 fl (80.0-96.0); RED BLOOD COUNT 2.41 10^6/uL (4.00-5.40); WHITE BLOOD COUNT 4.6 10^3/uL (4.0-10.0)
[2021-08-22] MEDS ORDERED: cefTRIAXone SOD 2 GM in D5W MINI-BAG PLUS 50 ML IV ONE (09:30)
[2021-08-22] MEDS ORDERED: ACETAMINOPHEN *IV* 1,000 MG in IV 1 EA IV ONE (09:30)
[2021-08-22 09:33] LABS: PLATELET COUNT, AUTOMATED 76 10^3/uL (150-450)
[2021-08-22 09:54] LABS: CK-MB VALUE MASS 2.7 NG/ML (<3.6); MB/CK RELATIVE INDEX 0.43 (< OR =4)
[2021-08-22 09:56] LABS: ATYPICAL LYMPH 1 % (0-5); EOSINOPHILS 1 % (0-3); LYMPHOCYTES 5 % (16-44); METAMYELOCYTES 2 % (0-0); MONOCYTES 6 % (0-5); MYELOCYTES 2 % (0-0); NEUTROPHILS 55 % (28-66)
[2021-08-22 09:57] LABS: OVALOCYTES 1+; PLATELET ESTIMATE DECREASED (NORMAL)
[2021-08-22 09:58] LABS: MICROCYTOSIS 1+
[2021-08-22 10:15] LABS: ALBUMIN 2.9 GM/DL (3.2-5.2); ALT/SGPT 9 U/L (12-78); BILIRUBIN,DIRECT 0.4 MG/DL (0.0-0.2); BILIRUBIN,TOTAL 1.1 MG/DL (0.2-1.0); BLOOD UREA NITROGEN 58 MG/DL (7-18); CALCIUM LEVEL 8.9 MG/DL (8.5-10.1); CARBON DIOXIDE LEVEL 18 MEQ/L (21-32); CHLORIDE LEVEL 95 MEQ/L (98-107); CREATININE FOR GFR 4.92 MG/DL (0.55-1.30); GLOMERULAR FILTRATION RATE 10.2 (>58); GLUCOSE, FASTING 303 MG/DL (70-100); LIPASE 34 U/L (73-393); SODIUM LEVEL 132 MEQ/L (136-145); TOTAL PROTEIN 5.9 GM/DL (6.4-8.2)
[2021-08-22 10:51] LABS: NT-PRO BNP > 175000 PG/ML (<125)
[2021-08-22] MEDS ORDERED: SODIUM CHLORIDE 0.9% 1000ML IV PRN (13:15)
[2021-08-22] MEDS ORDERED: NOREPINEPHRINE 8MG IN 500ML DEXTROSE 5% BAG As Ordered ONE (15:00)
[2021-08-22] MEDS ORDERED: MIDAZOLAM INJ 2MG/2ML VIAL (J2250 PER 1MG) As Ordered ONE (15:06)
[2021-08-22] MEDS: NOREPINEPHRINE/DEXTROSE 8 MG in IV 1 EA IV SCH (15:15)
[2021-08-22] MEDS ORDERED: MIDAZOLAM INJ 2MG/2ML VIAL (J2250 PER 1MG) IV ONE (15:20)
[2021-08-22] MEDS ORDERED: ALBUTEROL SULFATE 2.5 MG/0.5 ML INH NEB SOLN NEB PRN (16:20)
[2021-08-22] MEDS ORDERED: LR 1,000 ML IV SCH (16:30)
[2021-08-22 16:50] LABS: HEMOGLOBIN 8.8 g/dl (12.0-15.5); MEAN CORPUSCULAR HEMOGLOBIN 34.5 pg (27.0-33.0); MEAN CORPUSCULAR HGB CONC 31.4 g/dl (32.0-36.5); MEAN CORPUSCULAR VOLUME 109.8 fl (80.0-96.0); RED BLOOD COUNT 2.55 10^6/uL (4.00-5.40); WHITE BLOOD COUNT 6.8 10^3/uL (4.0-10.0)
[2021-08-22 17:01] LABS: ABG BASE EXCESS -14.8 (-2.0-2.0); ABG HCO3 10.3 MEQ/L (22.0-26.0); ABG O2 SATURATION 99.4 % (95.0-99.0); ABG PARTIAL PRESSURE CO2 22.6 mmHg (35.0-45.0); ABG PARTIAL PRESSURE O2 269.2 mmHg (75.0-100.0); ABG pH (ARTERIAL) 7.278 UNITS (7.350-7.450)
[2021-08-22 17:07] LABS: INR 2.48; PROTHROMBIN TIME 27.2 SECONDS (12.7-14.5)
[2021-08-22 17:08] LABS: PARTIAL THROMBOPLASTIN TIME 54.5 SECONDS (25.9-37.0)
[2021-08-22 17:12] LABS: ALBUMIN 2.9 GM/DL (3.2-5.2); BILIRUBIN,TOTAL 1.6 MG/DL (0.2-1.0); CALCIUM LEVEL 9.1 MG/DL (8.5-10.1); CREATININE FOR GFR 4.76 MG/DL (0.55-1.30); GLOMERULAR FILTRATION RATE 10.6 (>58); MAGNESIUM LEVEL 2.4 MG/DL (1.8-2.4); PHOSPHORUS LEVEL 6.8 MG/DL (2.5-4.9); POTASSIUM SERUM 3.7 MEQ/L (3.5-5.1)
[2021-08-22 17:24] LABS: PLATELET COUNT, AUTOMATED 79 10^3/uL (150-450)
[2021-08-22] MEDS: fentaNYL CITRATE 1,000 MCG in NS 80 ML IV SCH (17:24)
[2021-08-22 17:28] LABS: CK-MB VALUE MASS 11.7 NG/ML (<3.6); MB/CK RELATIVE INDEX 1.15 (< OR =4)
[2021-08-22 17:41] LABS: ATYPICAL LYMPH 1 % (0-5); BASOPHILS 1 % (0-1); LYMPHOCYTES 5 % (16-44); METAMYELOCYTES 6 % (0-0); MONOCYTES 2 % (0-5); MYELOCYTES 3 % (0-0); NEUTROPHILS 56 % (28-66)
[2021-08-22 17:43] LABS: ANISOCYTOSIS 1+; DOHLE BODIES 2+; PLATELET ESTIMATE DECREASED (NORMAL); TOXIC VACUOLATION 3+
[2021-08-22 17:45] LABS: SCHISTOCYTES 1+
[2021-08-22] MEDS: metroNIDAZOLE 500 MG in IV 1 EA IV SCH (17:49)
[2021-08-22] MEDS: PANTOPRAZOLE 40MG VIAL IV SCH (17:49)
[2021-08-22] MEDS ORDERED: PATIENT COMMENT (18:20)
[2021-08-22] MEDS ORDERED: HOME MED LIST COMPLETE! XX SCH (18:20)
[2021-08-22] MEDS ORDERED: NOVOINJ12 SC (18:20)
[2021-08-22 18:50] LABS: D-DIMER QUANT > 4000 ng/ml (<500)
[2021-08-22] MEDS ORDERED: EPINEPHrine 1MG/10ML SYRINGE 1.5IN ONE (18:53)
[2021-08-22] MEDS ORDERED: CALCIUM CHLORIDE 10% 1 GM/10 ML SYR ONE (18:53)
[2021-08-22] MEDS ORDERED: SODIUM BICARBONATE 8.4% INJ 50 ML SYRINGE ONE (18:53)
[2021-08-22] MEDS: MIDAZOLAM INJ 2MG/2ML VIAL (J2250 PER 1MG) IV PRN ×2 (20:35→22:44)
[2021-08-22] MEDS: fentaNYL 100 MCG/2 ML INJECTION IV PRN (20:42)
[2021-08-22] MEDS ORDERED: HEPARIN SOD (PORCINE) 5000UNITS/ML 1ML VIAL/SYRINGE SC SCH (21:00)
[2021-08-22 21:04] LABS: ABG BASE EXCESS -12.5 (-2.0-2.0); ABG O2 SATURATION 99.8 % (95.0-99.0); ABG PARTIAL PRESSURE CO2 23.8 mmHg (35.0-45.0); ABG PARTIAL PRESSURE O2 300.8 mmHg (75.0-100.0); ABG STANDARD HCO3 14.6 MEQ/L (22.0-26.0); ABG TOTAL CO2 12.7 MEQ/L (22.0-29.0); ABG pH (ARTERIAL) 7.321 UNITS (7.350-7.450)
[2021-08-22 21:10] LABS: HEMATOCRIT 28.8 % (36.0-47.0); HEMOGLOBIN 9.1 g/dl (12.0-15.5); MEAN CORPUSCULAR HGB CONC 31.6 g/dl (32.0-36.5); MEAN CORPUSCULAR VOLUME 107.5 fl (80.0-96.0); RED BLOOD COUNT 2.68 10^6/uL (4.00-5.40); WHITE BLOOD COUNT 4.8 10^3/uL (4.0-10.0)
[2021-08-22] MEDS ORDERED: LR 1,000 ML IV ONE (21:10)
[2021-08-22 21:12] LABS: PLATELET COUNT, AUTOMATED 68 10^3/uL (150-450)
[2021-08-22 21:20] LABS: INR 2.27; PROTHROMBIN TIME 25.4 SECONDS (12.7-14.5)
[2021-08-22 21:21] LABS: PARTIAL THROMBOPLASTIN TIME 50.4 SECONDS (25.9-37.0)
[2021-08-22 21:34] LABS: ALBUMIN 2.9 GM/DL (3.2-5.2); BILIRUBIN,TOTAL 1.8 MG/DL (0.2-1.0); CALCIUM LEVEL 8.4 MG/DL (8.5-10.1); CREATININE FOR GFR 4.86 MG/DL (0.55-1.30); GLOMERULAR FILTRATION RATE 10.3 (>58); MAGNESIUM LEVEL 2.3 MG/DL (1.8-2.4); PHOSPHORUS LEVEL 5.8 MG/DL (2.5-4.9); POTASSIUM SERUM 3.9 MEQ/L (3.5-5.1); TOTAL PROTEIN 6.1 GM/DL (6.4-8.2)
[2021-08-22] MEDS ORDERED: DAPTOmycin 650 MG in NS 50 ML IV STA (21:44)
[2021-08-22 23:36] LABS: CK-MB VALUE MASS 32.3 NG/ML (<3.6); MB/CK RELATIVE INDEX 1.7 (< OR =4)
[2021-08-23] VITALS (95 sets, daily range): BP systolic 101–184; BP diastolic 43–67
[2021-08-23] MEDS: DAPTOmycin 650 MG in NS 50 ML IV SCH (00:05)
[2021-08-23 01:26] LABS: ABG HCO3 13.2 MEQ/L (22.0-26.0); ABG O2 SATURATION 98.9 % (95.0-99.0); ABG PARTIAL PRESSURE CO2 24.9 mmHg (35.0-45.0); ABG PARTIAL PRESSURE O2 156.7 mmHg (75.0-100.0); ABG STANDARD HCO3 15.7 MEQ/L (22.0-26.0); ABG pH (ARTERIAL) 7.343 UNITS (7.350-7.450)
[2021-08-23 01:36] LABS: HEMATOCRIT 28.6 % (36.0-47.0); HEMOGLOBIN 9.3 g/dl (12.0-15.5); MEAN CORPUSCULAR HEMOGLOBIN 34.6 pg (27.0-33.0); MEAN CORPUSCULAR HGB CONC 32.5 g/dl (32.0-36.5); MEAN CORPUSCULAR VOLUME 106.3 fl (80.0-96.0); RED BLOOD COUNT 2.69 10^6/uL (4.00-5.40); WHITE BLOOD COUNT 5.7 10^3/uL (4.0-10.0)
[2021-08-23 01:38] LABS: PLATELET COUNT, AUTOMATED 57 10^3/uL (150-450)
[2021-08-23] MEDS: metroNIDAZOLE 500 MG in IV 1 EA IV SCH ×3 (01:41→16:22)
[2021-08-23] MEDS: NOREPINEPHRINE/DEXTROSE 8 MG in IV 1 EA IV SCH ×2 (01:41→21:47)
[2021-08-23 02:00] LABS: ALBUMIN 2.9 GM/DL (3.2-5.2); BILIRUBIN,TOTAL 2.7 MG/DL (0.2-1.0); CALCIUM LEVEL 8.4 MG/DL (8.5-10.1); CREATININE FOR GFR 4.95 MG/DL (0.55-1.30); GLOMERULAR FILTRATION RATE 10.1 (>58); MAGNESIUM LEVEL 2.2 MG/DL (1.8-2.4); PHOSPHORUS LEVEL 5.3 MG/DL (2.5-4.9); POTASSIUM SERUM 3.9 MEQ/L (3.5-5.1)
[2021-08-23] MEDS: MIDAZOLAM INJ 2MG/2ML VIAL (J2250 PER 1MG) IV PRN ×2 (03:25→22:55)
[2021-08-23] MEDS: CHLORHEXIDINE GLUCONATE 0.12 % 15ML UDC (PERIDEX ORAL RINSE) MT SCH ×3 (03:53→20:25)
[2021-08-23] MEDS: FIDAXOMICIN 200 MG TAB (DIFICID) PO SCH ×3 (03:53→20:25)
[2021-08-23] MEDS: fentaNYL CITRATE 1,000 MCG in NS 80 ML IV SCH (04:11)
[2021-08-23 04:59] LABS: ABG BASE EXCESS -10.7 (-2.0-2.0); ABG HCO3 14.5 MEQ/L (22.0-26.0); ABG PARTIAL PRESSURE CO2 29.9 mmHg (35.0-45.0); ABG PARTIAL PRESSURE O2 125.1 mmHg (75.0-100.0); ABG STANDARD HCO3 15.9 MEQ/L (22.0-26.0); ABG TOTAL CO2 15.4 MEQ/L (22.0-29.0); ABG pH (ARTERIAL) 7.303 UNITS (7.350-7.450)
[2021-08-23 05:06] LABS: HEMATOCRIT 28.6 % (36.0-47.0); HEMOGLOBIN 9.4 g/dl (12.0-15.5); MEAN CORPUSCULAR HEMOGLOBIN 34.9 pg (27.0-33.0); MEAN CORPUSCULAR HGB CONC 32.9 g/dl (32.0-36.5); MEAN CORPUSCULAR VOLUME 106.3 fl (80.0-96.0); RED BLOOD COUNT 2.69 10^6/uL (4.00-5.40); WHITE BLOOD COUNT 5.7 10^3/uL (4.0-10.0)
[2021-08-23 05:07] LABS: PLATELET COUNT, AUTOMATED 49 10^3/uL (150-450)
[2021-08-23 05:23] LABS: INR 2.52; PROTHROMBIN TIME 27.5 SECONDS (12.7-14.5)
[2021-08-23 05:24] LABS: INR 3.26; PROTHROMBIN TIME 33.5 SECONDS (12.7-14.5)
[2021-08-23 05:25] LABS: PARTIAL THROMBOPLASTIN TIME 54.2 SECONDS (25.9-37.0)
[2021-08-23 05:45] LABS: ALBUMIN 2.8 GM/DL (3.2-5.2); BILIRUBIN,TOTAL 2.5 MG/DL (0.2-1.0); CALCIUM LEVEL 8.8 MG/DL (8.5-10.1); CREATININE FOR GFR 5.01 MG/DL (0.55-1.30); MAGNESIUM LEVEL 2.4 MG/DL (1.8-2.4); PHOSPHORUS LEVEL 5.5 MG/DL (2.5-4.9); POTASSIUM SERUM 4.2 MEQ/L (3.5-5.1)
[2021-08-23] MEDS ORDERED: GLUCAGON INJ 1MG VIAL SC PRN (07:30)
[2021-08-23] MEDS ORDERED: GLUCOSE 4GM CHEW TABLET PO PRN (07:30)
[2021-08-23] MEDS ORDERED: DEXTROSE 50% 50 ML SYRINGE IV PRN (07:30)
[2021-08-23] MEDS: PANTOPRAZOLE 40MG VIAL IV SCH (09:04)
[2021-08-23 09:42] LABS: HEMATOCRIT 28.6 % (36.0-47.0); HEMOGLOBIN 9.2 g/dl (12.0-15.5); MEAN CORPUSCULAR HEMOGLOBIN 33.8 pg (27.0-33.0); MEAN CORPUSCULAR HGB CONC 32.2 g/dl (32.0-36.5); MEAN CORPUSCULAR VOLUME 105.1 fl (80.0-96.0); RED BLOOD COUNT 2.72 10^6/uL (4.00-5.40); WHITE BLOOD COUNT 5.5 10^3/uL (4.0-10.0)
[2021-08-23 09:45] LABS: PLATELET COUNT, AUTOMATED 42 10^3/uL (150-450)
[2021-08-23 09:53] LABS: INR 3.67; PROTHROMBIN TIME 36.7 SECONDS (12.7-14.5)
[2021-08-23 09:54] LABS: PARTIAL THROMBOPLASTIN TIME 53.6 SECONDS (25.9-37.0)
[2021-08-23 10:03] LABS: ALBUMIN 2.7 GM/DL (3.2-5.2); BILIRUBIN,TOTAL 2.4 MG/DL (0.2-1.0); CALCIUM LEVEL 8.9 MG/DL (8.5-10.1); CREATININE FOR GFR 5.05 MG/DL (0.55-1.30); GLOMERULAR FILTRATION RATE 9.9 (>58); MAGNESIUM LEVEL 2.4 MG/DL (1.8-2.4); PHOSPHORUS LEVEL 5.1 MG/DL (2.5-4.9); POTASSIUM SERUM 3.9 MEQ/L (3.5-5.1); TOTAL PROTEIN 6.2 GM/DL (6.4-8.2)
[2021-08-23 10:19] LABS: ABG BASE EXCESS -9.7 (-2.0-2.0); ABG HCO3 15.1 MEQ/L (22.0-26.0); ABG O2 SATURATION 97.8 % (95.0-99.0); ABG PARTIAL PRESSURE CO2 29.1 mmHg (35.0-45.0); ABG PARTIAL PRESSURE O2 114.8 mmHg (75.0-100.0); ABG STANDARD HCO3 16.7 MEQ/L (22.0-26.0); ABG pH (ARTERIAL) 7.332 UNITS (7.350-7.450)
[2021-08-23] MEDS: INSULIN LISPRO (NovoLOG) PER UNIT SC SCH ×3 (10:19→18:09)
[2021-08-23] MEDS ORDERED: LIDOCAINE W/EPINEPHRINE 1% 20ML VIAL SC ONE (10:30)
[2021-08-23] MEDS: SODIUM BICARBONATE 150 MEQ in D5W 1,000 ML IV SCH (12:19)
[2021-08-23 13:35] LABS: HEMATOCRIT 28.6 % (36.0-47.0); HEMOGLOBIN 9.2 g/dl (12.0-15.5); MEAN CORPUSCULAR HEMOGLOBIN 33.9 pg (27.0-33.0); MEAN CORPUSCULAR HGB CONC 32.2 g/dl (32.0-36.5); MEAN CORPUSCULAR VOLUME 105.5 fl (80.0-96.0); PLATELET COUNT, AUTOMATED 37 10^3/uL (150-450); RED BLOOD COUNT 2.71 10^6/uL (4.00-5.40); WHITE BLOOD COUNT 6.3 10^3/uL (4.0-10.0)
[2021-08-23 13:44] LABS: INR 3.76; PROTHROMBIN TIME 37.4 SECONDS (12.7-14.5)
[2021-08-23 13:45] LABS: PARTIAL THROMBOPLASTIN TIME 54.6 SECONDS (25.9-37.0)
[2021-08-23 14:02] LABS: ALBUMIN 2.6 GM/DL (3.2-5.2); BILIRUBIN,TOTAL 2.2 MG/DL (0.2-1.0); CALCIUM LEVEL 7.7 MG/DL (8.5-10.1); CREATININE FOR GFR 5.09 MG/DL (0.55-1.30); GLOMERULAR FILTRATION RATE 9.8 (>58); MAGNESIUM LEVEL 2.3 MG/DL (1.8-2.4); PHOSPHORUS LEVEL 4.7 MG/DL (2.5-4.9); POTASSIUM SERUM 3.9 MEQ/L (3.5-5.1); TOTAL PROTEIN 5.5 GM/DL (6.4-8.2)
[2021-08-23 15:16] LABS: ABG BASE EXCESS -5.9 (-2.0-2.0); ABG HCO3 18.7 MEQ/L (22.0-26.0); ABG O2 SATURATION 98.3 % (95.0-99.0); ABG PARTIAL PRESSURE CO2 33.4 mmHg (35.0-45.0); ABG STANDARD HCO3 19.6 MEQ/L (22.0-26.0); ABG TOTAL CO2 19.7 MEQ/L (22.0-29.0); ABG pH (ARTERIAL) 7.366 UNITS (7.350-7.450)
[2021-08-23 17:59] LABS: ABG BASE EXCESS -3.2 (-2.0-2.0); ABG HCO3 20.6 MEQ/L (22.0-26.0); ABG O2 SATURATION 98.3 % (95.0-99.0); ABG PARTIAL PRESSURE CO2 32.3 mmHg (35.0-45.0); ABG PARTIAL PRESSURE O2 117.3 mmHg (75.0-100.0); ABG STANDARD HCO3 21.8 MEQ/L (22.0-26.0); ABG TOTAL CO2 21.6 MEQ/L (22.0-29.0); ABG pH (ARTERIAL) 7.423 UNITS (7.350-7.450)
[2021-08-23 19:37] LABS: HEMATOCRIT 25.8 % (36.0-47.0); HEMOGLOBIN 8.6 g/dl (12.0-15.5); MEAN CORPUSCULAR HEMOGLOBIN 34.8 pg (27.0-33.0); MEAN CORPUSCULAR HGB CONC 33.3 g/dl (32.0-36.5); MEAN CORPUSCULAR VOLUME 104.5 fl (80.0-96.0); RED BLOOD COUNT 2.47 10^6/uL (4.00-5.40); WHITE BLOOD COUNT 7.5 10^3/uL (4.0-10.0)
[2021-08-23 19:38] LABS: PLATELET COUNT, AUTOMATED 28 10^3/uL (150-450)
[2021-08-23 19:47] LABS: INR 3.84
[2021-08-23 19:48] LABS: PARTIAL THROMBOPLASTIN TIME 56.4 SECONDS (25.9-37.0)
[2021-08-23 20:11] LABS: ALBUMIN 2.2 GM/DL (3.2-5.2); BILIRUBIN,TOTAL 2.1 MG/DL (0.2-1.0); CALCIUM LEVEL 7.8 MG/DL (8.5-10.1); CREATININE FOR GFR 5.19 MG/DL (0.55-1.30); GLOMERULAR FILTRATION RATE 9.6 (>58); MAGNESIUM LEVEL 2.1 MG/DL (1.8-2.4); PHOSPHORUS LEVEL 4.1 MG/DL (2.5-4.9); POTASSIUM SERUM 3.4 MEQ/L (3.5-5.1)
[2021-08-23 21:21] LABS: ABG BASE EXCESS -0.2 (-2.0-2.0); ABG HCO3 23.6 MEQ/L (22.0-26.0); ABG O2 SATURATION 98.9 % (95.0-99.0); ABG PARTIAL PRESSURE CO2 35.3 mmHg (35.0-45.0); ABG PARTIAL PRESSURE O2 141.5 mmHg (75.0-100.0); ABG STANDARD HCO3 24.3 MEQ/L (22.0-26.0); ABG TOTAL CO2 24.7 MEQ/L (22.0-29.0); ABG pH (ARTERIAL) 7.443 UNITS (7.350-7.450)
[2021-08-23 23:16] LABS: HEMATOCRIT 24.5 % (36.0-47.0); HEMOGLOBIN 8.2 g/dl (12.0-15.5); MEAN CORPUSCULAR HEMOGLOBIN 34.6 pg (27.0-33.0); MEAN CORPUSCULAR HGB CONC 33.5 g/dl (32.0-36.5); MEAN CORPUSCULAR VOLUME 103.4 fl (80.0-96.0); RED BLOOD COUNT 2.37 10^6/uL (4.00-5.40); WHITE BLOOD COUNT 8.1 10^3/uL (4.0-10.0)
[2021-08-23 23:17] LABS: PLATELET COUNT, AUTOMATED 25 10^3/uL (150-450)
[2021-08-23 23:38] LABS: INR 3.32
[2021-08-23 23:39] LABS: PARTIAL THROMBOPLASTIN TIME 57.1 SECONDS (25.9-37.0)
[2021-08-23 23:41] LABS: ALBUMIN 2.1 GM/DL (3.2-5.2); BILIRUBIN,TOTAL 2.1 MG/DL (0.2-1.0); CALCIUM LEVEL 7.4 MG/DL (8.5-10.1); CREATININE FOR GFR 4.87 MG/DL (0.55-1.30); GLOMERULAR FILTRATION RATE 10.3 (>58); MAGNESIUM LEVEL 1.9 MG/DL (1.8-2.4); PHOSPHORUS LEVEL 3.4 MG/DL (2.5-4.9); POTASSIUM SERUM 3.3 MEQ/L (3.5-5.1); TOTAL PROTEIN 4.6 GM/DL (6.4-8.2)
[2021-08-24] VITALS (71 sets, daily range): BP systolic 104–177; BP diastolic 45–62
[2021-08-24] MEDS: fentaNYL CITRATE 1,000 MCG in NS 80 ML IV SCH (00:03)
[2021-08-24] MEDS: metroNIDAZOLE 500 MG in IV 1 EA IV SCH ×2 (00:12→09:11)
[2021-08-24] MEDS: INSULIN LISPRO (NovoLOG) PER UNIT SC SCH ×5 (00:12→23:36)
[2021-08-24 01:41] LABS: ABG BASE EXCESS 3.6 (-2.0-2.0); ABG O2 SATURATION 97.9 % (95.0-99.0); ABG PARTIAL PRESSURE CO2 36.9 mmHg (35.0-45.0); ABG PARTIAL PRESSURE O2 104.7 mmHg (75.0-100.0); ABG STANDARD HCO3 27.7 MEQ/L (22.0-26.0); ABG TOTAL CO2 28.2 MEQ/L (22.0-29.0); ABG pH (ARTERIAL) 7.483 UNITS (7.350-7.450)
[2021-08-24 03:29] LABS: ALBUMIN 2.1 GM/DL (3.2-5.2); BILIRUBIN,TOTAL 2.1 MG/DL (0.2-1.0); CALCIUM LEVEL 7.5 MG/DL (8.5-10.1); CREATININE FOR GFR 5.28 MG/DL (0.55-1.30); GLOMERULAR FILTRATION RATE 9.4 (>58); MAGNESIUM LEVEL 1.9 MG/DL (1.8-2.4); PHOSPHORUS LEVEL 3.2 MG/DL (2.5-4.9); POTASSIUM SERUM 3.3 MEQ/L (3.5-5.1); TOTAL PROTEIN 4.8 GM/DL (6.4-8.2)
[2021-08-24] MEDS: SODIUM BICARBONATE 150 MEQ in D5W 1,000 ML IV SCH (04:09)
[2021-08-24] MEDS: KCL 10MEQ/100ML SWI (KRUN) 10 MEQ in IV 1 EA IV SCH ×3 (04:13→06:34)
[2021-08-24 05:47] LABS: ABG BASE EXCESS 3.2 (-2.0-2.0); ABG HCO3 25.5 MEQ/L (22.0-26.0); ABG O2 SATURATION 98.7 % (95.0-99.0); ABG PARTIAL PRESSURE CO2 30.7 mmHg (35.0-45.0); ABG PARTIAL PRESSURE O2 131.7 mmHg (75.0-100.0); ABG STANDARD HCO3 27.3 MEQ/L (22.0-26.0); ABG TOTAL CO2 26.5 MEQ/L (22.0-29.0); ABG pH (ARTERIAL) 7.538 UNITS (7.350-7.450)
[2021-08-24] MEDS: MIDAZOLAM INJ 2MG/2ML VIAL (J2250 PER 1MG) IV PRN (06:17)
[2021-08-24 06:23] LABS: HEMATOCRIT 24.8 % (36.0-47.0); HEMOGLOBIN 8.4 g/dl (12.0-15.5); MEAN CORPUSCULAR HEMOGLOBIN 34.1 pg (27.0-33.0); MEAN CORPUSCULAR HGB CONC 33.9 g/dl (32.0-36.5); MEAN CORPUSCULAR VOLUME 100.8 fl (80.0-96.0); RED BLOOD COUNT 2.46 10^6/uL (4.00-5.40); WHITE BLOOD COUNT 9.3 10^3/uL (4.0-10.0)
[2021-08-24 06:25] LABS: PLATELET COUNT, AUTOMATED 22 10^3/uL (150-450)
[2021-08-24 06:51] LABS: ALBUMIN 2.1 GM/DL (3.2-5.2); BILIRUBIN,TOTAL 2.5 MG/DL (0.2-1.0); BILIRUBIN,TOTAL 2.7 MG/DL (0.2-1.0); CALCIUM LEVEL 7.5 MG/DL (8.5-10.1); CALCIUM LEVEL 8.2 MG/DL (8.5-10.1); CREATININE FOR GFR 5.24 MG/DL (0.55-1.30); CREATININE FOR GFR 5.29 MG/DL (0.55-1.30); GLOMERULAR FILTRATION RATE 9.4 (>58); GLOMERULAR FILTRATION RATE 9.5 (>58); MAGNESIUM LEVEL 2.1 MG/DL (1.8-2.4); PHOSPHORUS LEVEL 3.1 MG/DL (2.5-4.9); POTASSIUM SERUM 3.6 MEQ/L (3.5-5.1); POTASSIUM SERUM 3.7 MEQ/L (3.5-5.1); TOTAL PROTEIN 4.6 GM/DL (6.4-8.2); TOTAL PROTEIN 4.7 GM/DL (6.4-8.2)
[2021-08-24] MEDS: FIDAXOMICIN 200 MG TAB (DIFICID) PO SCH ×2 (09:12→20:47)
[2021-08-24] MEDS: CHLORHEXIDINE GLUCONATE 0.12 % 15ML UDC (PERIDEX ORAL RINSE) MT SCH ×2 (09:12→20:47)
[2021-08-24] MEDS: PANTOPRAZOLE 40MG VIAL IV SCH (09:12)
[2021-08-24] MEDS: NOREPINEPHRINE/DEXTROSE 8 MG in IV 1 EA IV SCH ×2 (11:54→23:37)
[2021-08-24] MEDS: DAPTOmycin 650 MG in NS 50 ML IV SCH (22:54)
[2021-08-25] VITALS (42 sets, daily range): BP systolic 108–186; BP diastolic 43–63
[2021-08-25 04:55] LABS: HEMATOCRIT 24.7 % (36.0-47.0); HEMOGLOBIN 8.3 g/dl (12.0-15.5); MEAN CORPUSCULAR HGB CONC 33.6 g/dl (32.0-36.5); MEAN CORPUSCULAR VOLUME 101.2 fl (80.0-96.0); RED BLOOD COUNT 2.44 10^6/uL (4.00-5.40); WHITE BLOOD COUNT 11.1 10^3/uL (4.0-10.0)
[2021-08-25 04:59] LABS: PLATELET COUNT, AUTOMATED 18 10^3/uL (150-450)
[2021-08-25 05:37] LABS: ALBUMIN 2.1 GM/DL (3.2-5.2); BILIRUBIN,TOTAL 2.9 MG/DL (0.2-1.0); CALCIUM LEVEL 8.5 MG/DL (8.5-10.1); CREATININE FOR GFR 5.29 MG/DL (0.55-1.30); GLOMERULAR FILTRATION RATE 9.4 (>58); POTASSIUM SERUM 3.8 MEQ/L (3.5-5.1); TOTAL PROTEIN 4.9 GM/DL (6.4-8.2)
[2021-08-25 05:40] LABS: ERYTHROCYTE SEDIMENTATION RATE 60 mm/hr (0-20)
[2021-08-25 05:49] LABS: ABG BASE EXCESS 1.1 (-2.0-2.0); ABG HCO3 23.3 MEQ/L (22.0-26.0); ABG O2 SATURATION 98.8 % (95.0-99.0); ABG PARTIAL PRESSURE CO2 29.3 mmHg (35.0-45.0); ABG PARTIAL PRESSURE O2 125.3 mmHg (75.0-100.0); ABG STANDARD HCO3 25.4 MEQ/L (22.0-26.0); ABG TOTAL CO2 24.2 MEQ/L (22.0-29.0); ABG pH (ARTERIAL) 7.519 UNITS (7.350-7.450)
[2021-08-25] MEDS: INSULIN LISPRO (NovoLOG) PER UNIT SC SCH ×2 (05:57→12:00)
[2021-08-25] MEDS ORDERED: SODIUM CHLORIDE 0.9% 1000ML IV PRN (06:00)
[2021-08-25] MEDS: PANTOPRAZOLE 40MG VIAL IV SCH (08:59)
[2021-08-25] MEDS: FIDAXOMICIN 200 MG TAB (DIFICID) PO SCH (08:59)
[2021-08-25] MEDS: CHLORHEXIDINE GLUCONATE 0.12 % 15ML UDC (PERIDEX ORAL RINSE) MT SCH (08:59)
[2021-08-25] MEDS ORDERED: fentaNYL 100 MCG/2 ML INJECTION IV PRN (10:45)
[2021-08-25] MEDS: fentaNYL 100 MCG/2 ML INJECTION IV PRN (11:11)
== END 2021-08-25 14:10 | disposition expired | DRG 314 ==
LOC: EDBD 08:20 → M ED 08:20 → M ICU 15:01
PROVIDERS: ADMIT Internal Medicine Pulmonary Disease; ATTEND Internal Medicine Pulmonary Disease
PROC: 5A1945Z Respiratory Ventilation, 24-96 Consecutive Hours (ICD-10-PCS; principal; 2021-08-22)
PROC: 04HL33Z Insertion of Infusion Device into Left Femoral Artery, Percutaneous Approach (ICD-10-PCS; 2021-08-22)
PROC: 6A601ZZ Phototherapy of Skin, Multiple (ICD-10-PCS; 2021-08-22)
DX: T80.219A Unspecified infection due to central venous catheter, initial encounter (principal); R65.21 Severe sepsis with septic shock; G93.41 Metabolic encephalopathy; J96.01 Acute respiratory failure with hypoxia; A41.02 Sepsis due to Methicillin resistant Staphylococcus aureus; R40.20 Unspecified coma; D65 Disseminated intravascular coagulation [defibrination syndrome]; N18.6 End stage renal disease; E87.2 Acidosis; E87.3 Alkalosis; R44.3 Hallucinations, unspecified; G93.1 Anoxic brain damage, not elsewhere classified; Z94.0 Kidney transplant status; I12.0 Hypertensive chronic kidney disease with stage 5 chronic kidney disease or end stage renal disease; A04.71 Enterocolitis due to Clostridium difficile, recurrent; I46.9 Cardiac arrest, cause unspecified; Z99.2 Dependence on renal dialysis; K21.9 Gastro-esophageal reflux disease without esophagitis; E21.1 Secondary hyperparathyroidism, not elsewhere classified; Z86.73 Personal history of transient ischemic attack (TIA), and cerebral infarction without residual deficits; E78.5 Hyperlipidemia, unspecified; Z88.8 Allergy status to other drugs, medicaments and biological substances; Z79.4 Long term (current) use of insulin; E10.22 Type 1 diabetes mellitus with diabetic chronic kidney disease; Z98.41 Cataract extraction status, right eye; Z98.42 Cataract extraction status, left eye; Z99.3 Dependence on wheelchair; Z91.11 Patient's noncompliance with dietary regimen; Z66 Do not resuscitate; Z51.5 Encounter for palliative care; Y83.8 Other surgical procedures as the cause of abnormal reaction of the patient, or of later complication, without mention of misadventure at the time of the procedure